=== PATIENT | male | born 1995 | race Caucasian/White ===

== ENCOUNTER 2016-12-09 21:26 | Inpatient (IN) | payer BC ==
[~2016-12-09] VITALS: Ht 182.9 cm; Wt 70.5 kg
[~2016-12-09 21:26] MED LIST: ARIP1TAB8 PO; DIVA500T5 PO; WLLSR/150 PO
[2016-12-09] MEDS ORDERED: WLLSR/300 PO (21:43)
[2016-12-09] MEDS ORDERED: BUPRTAB51 PO (21:43)
[2016-12-09] MEDS ORDERED: DIVA250T PO (21:43)
[2016-12-09] MEDS ORDERED: DIVA500T3 PO (21:43)
[2016-12-09 22:31] LABS: URINE APPEARANCE CLEAR (CLEAR); URINE BILIRUBIN NEG (NEG); URINE COLOR YELLOW; URINE NITRITE NEG (NEG); URINE SPECIFIC GRAVITY 1.021 (1.000-1.030); UROBILINOGEN NEG (NEG)
[2016-12-09 22:37] LABS: MANUAL MICROSCOPIC REQUIRED? NO; REVIEW REQ? NO
--- NOTE | 2016-12-09 22:40 | EMERGENCY ROOM VISIT NOTE ---
History Report prepared by Tariq: Giorgi Caldera Under the Supervision of: Dr. Boby Soto D.O. First contact with patient: 21:52 Chief Complaint: MENTAL HEALTH EVALUATION Stated Complaint: 201 History of Present Illness The patient is a 21 year old male who presents to the Emergency Room for a mental health evaluation. The patient's father was concerned about his behavior and decided to bring him into the ED for further evaluation. Per patient's father, the patient had not reached out to him in 3 weeks, the patient has historically struggled in late November for the past few years, and concerned friends had reached out to the patient's parents.The patient has a history of bipolar disorder and stopped taking his medications awhile ago. The patient is not sure exactly when or why he stopped taking his medications. He also notes he has not been going to class for awhile. Per patient's father, the patient has been on his medications for two years and is stable when he is taking them. He has not had any recent medication changes. The patient has been admitted for similar symptoms 3 times in the past. His last in-patient was about 4 years ago. He denies drug or alcohol use, hearing voices, or suicidal ideation at this time. Source of History: patient, parent Onset: today Position: other (global) Note: Other associated symptoms: not taking medications, not going to class Denies: drug or alcohol use, hearing voices or suicidal ideation. Review of Systems See HPI for pertinent positives & negatives. A total of 10 systems reviewed and were otherwise negative. Past Medical & Surgical Medical Problems: (1) Depression Family History Hypertension Social History Smoking Status: Never Smoker Alcohol Use: none Drug Use: none Marital Status: single Housing Status: lives with family Allergies Coded Allergies: No Known Allergies (Unverified , 12/09/16) Physical Exam Vital Signs Date Time Temp Pulse Resp B/P Pulse Ox O2 Delivery O2 Flow Rate FiO2 12/09/16 23:22 71 18 113/72 98 Room Air 12/09/16 21:29 36.5 64 18 120/79 99 Room Air Physical Exam GENERAL: Patient is awake alert, somewhat guarded appearing, anxious, does not appear to be uncomfortable. EYES: The conjunctivae are clear. The pupils are round and reactive. EARS, NOSE, MOUTH AND THROAT: The nose is without any evidence of any deformity. Mucous membranes are moist tongue is midline NECK: The neck is nontender and supple. RESPIRATORY: Normal respiratory effort is noted there is no evidence of wheezing rhonchi or rales CARDIOVASCULAR: Regular rate and rhythm noted there no murmurs rubs or gallops normal S1 normal S2 GASTROINTESTINAL: The abdomen is soft. Bowel sounds are present in all quadrants. Abdomen is nontender MUSCULOSKELETAL/EXTREMITIES: There is no evidence of gross deformity full range of motion is noted in the hips and shoulders SKIN: There is no obvious evidence of any rash. There are no petechiae, pallor or cyanosis noted. NEUROLOGIC: Patient is awake alert and oriented x3 strength is symmetric patellar reflexes are 2+ bilaterally PSYCH: Patient was guarded and somewhat anxious appearing. He makes poor eye contact, currently denying any suicidal or homicidal ideation, but appears to be responding to internal stimuli, patient laughs inappropriately, patient has some insight into his overall condition. Medical Decision & Procedures Laboratory Results 12/09/16 22:25 Red Blood Count 5.94, Mean Corpuscular Volume 80.8, Mean Corpuscular Hemoglobin 28.6, Mean Corpuscular Hemoglobin Concent 35.4, Mean Platelet Volume 10.6, Neutrophils (%) (Auto) 52.3, Lymphocytes (%) (Auto) 35.5, Monocytes (%) (Auto) 10.0, Eosinophils (%) (Auto) 1.5, Basophils (%) (Auto) 0.5, Neutrophils # (Auto ) 3.08, Lymphocytes # (Auto) 2.09, Monocytes # (Auto) 0.59, Eosinophils # (Auto ) 0.09, Basophils # (Auto) 0.03 12/09/16 22:25 Test 12/09/16 22:15 12/09/16 22:25 12/09/16 22:28 Urine Color YELLOW Urine Appearance CLEAR (CLEAR) Urine pH 7.0 (4.5-7.5) Urine Specific [place] 1.021 (1.000-1.030) Urine Protein NEG (NEG) Urine Glucose (UA) NEG (NEG) Urine Ketones NEG (NEG) Urine Occult Blood NEG (NEG) Urine Nitrite NEG (NEG) Urine Bilirubin NEG (NEG) Urine Urobilinogen NEG (NEG) Urine Leukocyte Esterase NEG (NEG) Urine Opiates Screen NEG (NEG) Urine Methadone, Qualitative NEG (NEG) Urine Barbiturates NEG (NEG) Urine Phencyclidine (PCP) Level NEG (NEG) Ur Amphetamine/Methamphetamine NEG (NEG) MDMA (Ecstasy) Screen NEG (NEG) Urine Benzodiazepines Screen NEG (NEG) Urine Cocaine Metabolite NEG (NEG) Urine Marijuana (THC) NEG (NEG) White Blood Count 5.89 K/uL (4.8-10.8) Red Blood Count 5.94 M/uL (4.7-6.1) Hemoglobin 17.0 g/dL (14.0-18.0) Hematocrit 48.0 % (42-52) Mean Corpuscular Volume 80.8 fL (80-100) Mean Corpuscular Hemoglobin 28.6 pg (25-34) Mean Corpuscular Hemoglobin Concent 35.4 g/dl (32-36) Platelet Count 260 K/uL (130-400) Mean Platelet Volume 10.6 fL (7.4-10.4) Neutrophils (%) (Auto) 52.3 % Lymphocytes (%) (Auto) 35.5 % Monocytes (%) (Auto) 10.0 % Eosinophils (%) (Auto) 1.5 % Basophils (%) (Auto) 0.5 % Neutrophils # (Auto) 3.08 K/uL (1.4-6.5) Lymphocytes # (Auto) 2.09 K/uL (1.2-3.4) Monocytes # (Auto) 0.59 K/uL (0.11-0.59) Eosinophils # (Auto) 0.09 K/uL (0-0.5) Basophils # (Auto) 0.03 K/uL (0-0.2) RDW Standard Deviation 38.9 fL (36.4-46.3) RDW Coefficient of Variation 13.1 % (11.5-14.5) Immature Granulocyte % (Auto) 0.2 % Immature Granulocyte # (Auto) 0.01 K/uL (0.00-0.02) Anion Gap 9.0 mmol/L (3-11) Est Creatinine Clear Calc Drug Dose 149.8 ml/min Estimated GFR () 148.8 Estimated GFR (Non- 128.4 BUN/Creatinine Ratio 8.0 (10-20) Calcium Level 8.8 mg/dl (8.5-10.1) Total Bilirubin 0.3 mg/dl (0.2-1) Direct Bilirubin < 0.1 mg/dl (0-0.2) Aspartate Amino Transf (AST/SGOT) 21 U/L (15-37) Alanine Aminotransferase (ALT/SGPT) 23 U/L (12-78) Alkaline Phosphatase 49 U/L (45-117) Total Protein 6.9 gm/dl (6.4-8.2) Albumin 4.2 gm/dl (3.4-5.0) Globulin 2.7 gm/dl (2.5-4.0) Albumin/Globulin Ratio 1.6 (0.9-2) Thyroid Stimulating Hormone (TSH) 1.240 uIu/ml (0.300-4.500) Valproic Acid (Depakene) Level < 3 mcg/ml (50-100) Ethyl Alcohol mg/dL < 3.0 mg/dl (0-3) Laboratory results per my review. ED Course 2013: The patient was evaluated in room A7. A complete history and physical examination were performed. 2320: At this time, I reevaluated the patient and he is resting comfortably. 0102: At this time, the patient was accepted and placed at a mental health facility - [address] [place] [address]. Medical Decision Prior records/ancillary studies reviewed. Triage Nursing notes reviewed. Additional history obtained from the patient's father. The patient's history was concerning for possible psychiatric disturbance. Differential diagnosis: Etiologies such as mood disorder, infection, hypoglycemia, electrolyte abnormalities, cardiac sources, intracerebral event, toxicologic, neurologic, as well as others were entertained. The patient is a 21-year-old male who presented to the emergency department for a mental health evaluation. His father brought him to the emergency department and was very concerned because he has not heard from enema in a few weeks. The patient's father was contacted by friends who were concerned because the patient had become withdrawn. The patient stopped going to classes. His grades started to suffer. The patient stopped taking his medications. He appears to have some insight into his overall condition but I still feel that his mental health condition warrants an evaluation for possible inpatient management. The patient was medically cleared in the emergency department. He is currently being evaluated by the delegate from [address] [place] [id number]. The patient was felt to be a good candidate for inpatient management. He was accepted the [address] [place] [address]. Impression Primary Impression: Bipolar disorder Additional Impressions: Noncompliance with medications Manic behavior Scribe Attestation The scribe's documentation has been prepared under my direction and personally reviewed by me in its entirety. I confirm that the note above accurately reflects all work, treatment, procedures, and medical decision making performed by me. Departure Information Dispostion [facility] ([address] [place] [address]) Forms HOME CARE DOCUMENTATION FORM, IMPORTANT VISIT INFORMATION Problem Qualifiers Primary Impression: Bipolar disorder Active/Remission status: currently active Current bipolar episode type: manic Current episode severity: moderate Qualified Codes: F31.12 - Bipolar disorder, current episode manic without psychotic features, moderate
[2016-12-09 22:47] LABS: BASO % 0.5 %; BASO ABS # 0.03 K/uL (0-0.2); COMPLETE YES; EOS % 1.5 %; IG% 0.2 %; LYMPH % 35.5 %; LYMPH ABS # 2.09 K/uL (1.2-3.4); MEAN CELL VOLUME 80.8 fL (80-100); MEAN CORPUSCULAR HEMOGLOBIN 28.6 pg (25-34); MEAN CORPUSCULAR HGB CONC 35.4 g/dl (32-36); MEAN PLATELET VOLUME 10.6 fL (7.4-10.4); NEUT % 52.3 %; PLATELET COUNT 260 K/uL (130-400); RED BLOOD COUNT 5.94 M/uL (4.7-6.1); WHITE BLOOD COUNT 5.89 K/uL (4.8-10.8)
[2016-12-09 23:03] LABS: ALT/SGPT 23 U/L (12-78); BLOOD UREA NITROGEN 6 mg/dl (7-18); CALCIUM 8.8 mg/dl (8.5-10.1); CARBON DIOXIDE 26 mmol/L (21-32); CHLORIDE 108 mmol/L (98-107); CREATININE 0.79 mg/dl (0.60-1.40); GLUCOSE 120 mg/dl (70-99); POTASSIUM 4.1 mmol/L (3.5-5.1); SODIUM 143 mmol/L (136-145)
[2016-12-09 23:05] LABS: BENZODIAZEPINE, URINE NEG (NEG); COCAINE,URINE NEG (NEG); PHENCYCLIDINE, URINE NEG (NEG)
[2016-12-09 23:14] LABS: ALB/GLOB RATIO 1.6 (0.9-2); ALKALINE PHOSPHATASE 49 U/L (45-117); AST/SGOT 21 U/L (15-37)
[2016-12-10] MEDS ORDERED: NURSING VERBAL MED ORDER ONE (01:00)
[2016-12-10 01:11] VITALS: O2SAT 98
[2016-12-10 01:25] VITALS: BP_SYST 127; BP_DIAS 76; BP_DIAS 80; PULSE 58; TEMP 36.5; Ht 182.9 cm; Wt 70.5 kg
[2016-12-10] MEDS ORDERED: ALUMINUM/MAGNESIUM SUSP 30 ML UDC PO PRN (01:45)
[2016-12-10] MEDS ORDERED: BISMUTH SUBSALICYLATE PER ML OMNICELL CHARGE PO PRN (01:45)
[2016-12-10] MEDS ORDERED: hydrOXYzine HCL 25 MG TAB PO PRN ×2 (01:45)
[2016-12-10] MEDS ORDERED: SODIUM CHLORIDE 0.65% NA SOLN 45 ML (OCEAN) PRN (01:45)
[2016-12-10] MEDS ORDERED: ACETAMINOPHEN 325 MG TAB PO PRN (01:45)
[2016-12-10] MEDS ORDERED: MAGNESIUM HYDROXIDE SUSP 30 ML UDC PO PRN (01:45)
[2016-12-10] MEDS ORDERED: HALOPERIDOL LACTATE 5 MG/ML 1 ML VIAL IM PRN (11:00)
[2016-12-10] MEDS ORDERED: HALOPERIDOL 5 MG TAB PO PRN (11:00)
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
[2016-12-10] MEDS ORDERED: ARIPIprazole TAB 5 MG TAB PO SCH (13:30)
[2016-12-10] MEDS: DIVALPROEX SODIUM 250 MG DELAY REL TAB PO SCH (22:00)
[2016-12-11 06:46] VITALS: BP_SYST 103; BP_SYST 108; BP_DIAS 64; BP_DIAS 67; PULSE 47; PULSE 62; TEMP 36.9
--- NOTE | 2016-12-11 07:56 | Psychiatric Progress Notes ---
Progress Note Date of Service Dec 11, 2016. Interval History Javid Garcia is a 21-year-old male with a history of depression not otherwise specified, rule out bipolar disorder and rule out autism, who presented to the emergency room last night with his father due to concerns about poorly controlled mood symptoms and inability to function. He had taken himself off of medications one to 2 months ago for unknown reasons. He was admitted voluntarily, but immediately submitted a 72 hour notice requesting to withdraw from treatment. He is refusing all aspects of treatment, including medications and groups, and has refused most meals. Chief Complaint "Tired". Subjective Patient was seen & assessed interval progress reviewed with nursing. Staff report he remained in his room all day yesterday, refused all medications, and refused all meals. He refused all groups and would not come out of his room even with prompting from staff. On shift nurse manager and came out and asked staff for food, saying he was hungry as he hasn't eaten for two days, so he was given some food, and his fasting labs were moved to tomorrow AM. He is pleasant in interactions with staff, but uncooperative with all aspect of treatment. His father called in, but the patient refused to talk to him and refused to sign a release. Today, the patient was seen in his room, where he is still in bed made morning. He refused breakfast this morning. When asked why he is refusing to take medications or participate in treatment, he says "no reason." He says he didn't want to talk to his family, and when asked why he wants sign a release or allow us to speak with them, says "no reason." He says he doesn't need to be here, and does not think he has a mental illness. When asked why he has been seen a psychiatrist in taking psychotropic medications for years, he says "no reason." He says he is here because "it's their problem, not mine." When asked if he is upset at them, he says "they're upset at me because I haven' t been talking to them." When asked about hallucinations, he interrupted before the question was over to answer "no," and continued to do that with several other questions about specific symptoms. He continues to refuse to take medications. When asked why he agreed to voluntary treatment in the emergency room, as per documentation he told staff there that he had decompensated since going off of his medications and felt that he needed treatment, he states that he did not sign in voluntarily and does not recall this discussion with staff. Again reviewed the treatment recommendations with him, as well as concerns about his symptoms and inability to care for himself over the past month, and again encouraged him to rescind his 72 hour notice and participate in treatment. He responded by saying "no thank you." He was informed of recommendations to proceed with a 302 involuntary commitment, given the risk he poses to himself if he continues to refuse to treat his mental illness, and was given information about the process. Sleep Information Total Hours of Sleep: 11.00 Meal Information Percent of Lunch Consumed: 0 Mental Status Exam During interview pt is: uncooperative, other (refused to get out of bed or sit up. Refuses to answer most questions.) Appearance: disheveled (unkempt), other (lying in bed with the covers pulled up.) Eye contact is: other (does not make any eye contact and averts gaze.) Motor behavior is: psychomotor agitation (mild restless, shifting frequently in bed. Prior to entering the room, he was observed lying in bed and staring up at the ceiling, without restlessness.) Speech: other (minimal, but normal rate when he does speak, and briefly was very loud) Affect: other (odd, inappropriate, with brief episodes of laughing inappropriately) Mood is: other ("tired") Thought process: other (difficult to assess due to refusal to answer most questions and short answers. Cannot rule out thought blocking.) Thought content: other (denies paranoia, delusions of reference, thought broadcasting and insertion, but not a reliable historian.) Suicidal thought are: denied Homicidal thoughts are: denied Hallucinations: denies auditory (but appears to be responding to internal stimuli at times, laughing inappropriately) Cognition: other (all spheres impaired, states he does not recall signing in the conversations he had with emergency room staff) Intelligence estimated to be: consistent with level of education Insight: severely impaired Judgement: severely impaired Impression 21-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 He is a poor historian and unwilling to answer questions or participate in the assessment process. We will need to get collateral information from family and his outpatient psychiatrist, Dr. Duenas, as we have not seen him in several years. Based on the limited information available , his symptoms most likely represent a mixed episode of bipolar disorder with psychosis, complicated by noncompliance with treatment. Although admitted voluntarily, he immediately submitted a 72 hour notice requesting to withdraw from treatment, and is refusing all medications, will not participate in assessments or groups, and has been refusing meals. At this point, will proceed with an involuntary 302 commitment, as he does not appear able to provide for his own basic needs at this time due to the severity of his symptoms. May need to consider medications over objection. Plan (1) Bipolar disorder -Resume home dose of Depakote 750 mg daily at bedtime, and check a trough level after 5 days (12/16/2016). -Resume aripiprazole, starting at 2.5 mg today, and increasing to 5 mg every morning tomorrow. Titrate up to effective dose. -Fasting lipid profile and glucose ordered for monitoring on an atypical antipsychotic for tomorrow morning. -Haldol 5 mg by mouth or IM as needed for psychosis. -Request records from Dr. Duenas. So far, the patient is refusing to sign any releases. -Get collateral information from parents. Presently, he is refusing to sign a release or schedule a family meeting. -He is here on a voluntary basis, but has submitted a 72 hour notice requesting to withdraw from treatment. We'll consider the need for a 302 involuntary commitment. -Encourage participation in unit groups and programming once he is able to tolerate it. -Once he is improved, will need to work on healthy coping skills and her discharge safety plan. 12/11 -Refusing all medications and most meals. -Pursue 302 involuntary commitment, and consider medications over objection. -Fasting labs have been postponed until tomorrow. -The patient's father called in, but patient refused to speak with him or to sign a release of information so that staff could speak with family. -Will attempt to contact Dr. Duenas tomorrow. (2) Noncompliance with medications Will coordinate care with Dr. Duenas. Consider the need for long-acting injectable antipsychotic, as the patient has decompensated in been hospitalized at least twice now due to going off of his medications. Visit Code E&M Code: 67567 Inventory Assets Strengths: "I don't know." Patient refused to answer Needs: Compliance with treatment Risk Factors Assessment Male: Yes : Yes /single/: Yes Health problems: No Mental Health Diagnoses: Yes Substance use disorders: No Previous attempt: Yes Family history of suicide: No Previous psychiatric stay: Yes Hopelessness: No Smoker: No Protective Factors Assessment Mandaen beliefs: Yes : No Responsible for young children: No Employed: No Stable relationships: No Supportive family: Yes Data Vital Signs Last 24 Hrs: Date Time Temp Pulse Resp B/P Pulse Ox O2 Delivery O2 Flow Rate FiO2 12/11/16 06:46 36.9 47 16 108/64 62 103/67 Problem Qualifiers (1) Bipolar disorder: Current bipolar episode type: mixed Current episode severity: severe Psychotic features: with psychotic features
[2016-12-11] MEDS: ARIPIprazole TAB 5 MG TAB PO SCH ×2 (09:00→17:58)
[2016-12-11] MEDS: DIVALPROEX SODIUM 250 MG DELAY REL TAB PO SCH (20:51)
[2016-12-12 06:53] VITALS: BP_SYST 113; BP_SYST 124; BP_DIAS 68; BP_DIAS 84; PULSE 47; PULSE 55; TEMP 36.7
[2016-12-12 08:53] LABS: CHOLESTEROL/HDL RATIO 2.2
[2016-12-12] MEDS: ARIPIprazole TAB 5 MG TAB PO SCH (09:00)
--- NOTE | 2016-12-12 12:49 | Psychiatric Progress Notes ---
Progress Note Date of Service Dec 12, 2016. Interval History Javid Garcia is a 21-year-old male with a history of depression not otherwise specified, rule out bipolar disorder and rule out autism, who presented to the emergency room last night with his father due to concerns about poorly controlled mood symptoms and inability to function. He had taken himself off of medications one to 2 months ago for unknown reasons. He was admitted voluntarily, but immediately submitted a 72 hour notice requesting to withdraw from treatment. He is refusing all aspects of treatment, including medications and groups, and has refused most meals. Chief Complaint Patient nonverbal, refusing to answer most questions. Subjective Patient was seen & assessed interval progress reviewed with Treatment Team. Staff report he refused his Abilify yesterday morning, but then came out to the nurses station in the evening and stated he would take it. He also took his Depakote as scheduled at bedtime. Other than that, he remained in his room in bed all day, with no interactions with staff or peers, politely refusing groups and breakfast and lunch. When staff was checking on him and asked if he needed anything, he told them he did, and handed in a plastic deodorant cap that he had under his blanket which appeared to be chewed on. His mother came to the hospital and requested to visit with him, but when staff asked him if she could come up, he initially did not respond at all, and eventually declined. He ate 100% of his dinner, but has refused all other meals since admission. Today, he was seen in his room, where he is still in bed with the covers pulled up. He refused to open his eyes, sit up, or respond to most questions. After several minutes of attempting to engage him, he said "medicine." He would not clarify this statement. He said "no," when asked if he would be willing to get up and participate in treatment today, and when asked why not, said "no reason." When asked if he felt he was depressed, he said "no." He admits that he has not showered in a long time, cannot recall when he last showered, and was encouraged to shower today. Spoke with his outpatient psychiatrist, Dr. Duenas. He has been seen the patient since 2013, and states the patient is diagnosed with bipolar disorder type I, but he has never known him to have psychotic symptoms in the past. He typically becomes depressed in the late fall, and last winter stopped medications for 3-4 weeks and decompensated, although not to this degree. He said he stopped the meds because he felt guilty about the cost. His mother had called last month with concerns that the patient was becoming manic. In the past, his Wellbutrin has been increased and winter months, but there are concerns about destabilizing mood. He has had periods of poor medication compliance in the past. He is close with his family, so his current behavior is unusual. Sleep Information Total Hours of Sleep: 3.00 Meal Information Percent of Breakfast Consumed: 0 Percent of Lunch Consumed: 0 Percent of Dinner Consumed: 100 Mental Status Exam During interview pt is: uncooperative, other (refused to get out of bed or sit up. Refuses to answer most questions.) Appearance: disheveled (unkempt), other (lying in bed with the covers pulled up.) Eye contact is: other (refuses to open eyes or make any eye contact) Motor behavior is: psychomotor agitation (mild restless, shifting frequently in bed. Prior to entering the room, he was observed lying in bed and staring up at the ceiling, without restlessness.) Speech: other (minimal, but normal rate when he does speak, and briefly was very loud) Affect: irritable, constricted Mood is: other (patient refuses to answer) Thought process: other (difficult to assess due to refusal to answer most questions and short answers. 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 He is a poor historian and unwilling to answer questions or participate in the assessment process. We will need to get collateral information from family and his outpatient psychiatrist, Dr. Duenas, as we have not seen him in several years. Based on the limited information available , his symptoms most likely represent a mixed episode of bipolar disorder with psychosis, complicated by noncompliance with treatment. Although admitted voluntarily, he immediately submitted a 72 hour notice requesting to withdraw from treatment, and receipted to refuse medications, groups, and would not answer questions or participate in assessments. He has not been showering or doing his ADLs, is spending all day in bed, and has been refusing meals. He was placed on an involuntary 302 commitment on 12/11/2016, as he does not appear able to provide for his own basic needs at this time due to the severity of his symptoms. May need to consider medications over objection. Plan (1) Bipolar disorder -Resume home dose of Depakote 750 mg daily at bedtime, and check a trough level after 5 days (12/16/2016). -Resume aripiprazole, starting at lower dose of 2.5 mg today, and increasing to 5 mg every morning tomorrow. Titrate up to effective dose. -Hold bupropion due to risk of destabilizing mood, as has not been taking his mood stabilizer. -Fasting lipid profile and glucose ordered for monitoring on an atypical antipsychotic for tomorrow morning. -Haldol 5 mg by mouth or IM as needed for psychosis. -Request records from Dr. Duenas. So far, the patient is refusing to sign any releases. -Get collateral information from parents. Presently, he is refusing to sign a release or schedule a family meeting. -He is here on a voluntary basis, but has submitted a 72 hour notice requesting to withdraw from treatment. We'll consider the need for a 302 involuntary commitment. -Encourage participation in unit groups and programming once he is able to tolerate it. -Once he is improved, will need to work on healthy coping skills and her discharge safety plan. 12/11 -Refusing all medications and most meals. -Pursue 302 involuntary commitment, and consider medications over objection. -Fasting labs have been postponed until tomorrow. -The patient's father called in, but patient refused to speak with him or to sign a release of information so that staff could speak with family. -Will attempt to contact Dr. Duenas tomorrow. 12/12 -Spoke with Dr. Duenas to coordinate care. He confirms bipolar type I diagnosis, and agrees that psychosis appears to be complicating the clinical picture. He also confirms that at baseline, patient is very close with his family, and current presentation is not normal for him. Reviewed medication plan, and he was in agreement. -Continue aripiprazole and Depakote. Will increase aripiprazole to 7.5 mg daily for tomorrow. -Fasting labs were performed this morning for monitoring on an atypical antipsychotic, and were normal. (2) Noncompliance with medications Will coordinate care with Dr. Duenas. Consider the need for long-acting injectable antipsychotic, as the patient has decompensated in been hospitalized at least twice now due to going off of his medications. Visit Code E&M Code: 75643 Inventory Assets Strengths: "I don't know." Patient refused to answer Needs: Compliance with treatment Risk Factors Assessment Male: Yes : Yes /single/: Yes Health problems: No Mental Health Diagnoses: Yes Substance use disorders: No Previous attempt: Yes Family history of suicide: No Previous psychiatric stay: Yes Hopelessness: No Smoker: No Protective Factors Assessment Denominational beliefs: Yes : No Responsible for young children: No Employed: No Stable relationships: No Supportive family: Yes Data Vital Signs Last 24 Hrs: Date Time Temp Pulse Resp B/P Pulse Ox O2 Delivery O2 Flow Rate FiO2 12/12/16 06:53 36.7 47 16 113/68 55 124/84 Meds Administered Last 24 Hrs: Meds Administered (Past 24Hrs) Medications (Trade) Dose Ordered Sig/Olena Route Start Time Stop Time Status Last Admin Dose Admin Divalproex Sodium (Depakote Delay Rel Tab) 750 mg HS PO 12/10/16 22:00 01/09/17 21:59 12/11/16 20:51 750 MG Aripiprazole (Abilify Tab) 5 mg QAM PO 12/11/16 09:00 01/10/17 08:59 12/12/16 09:00 5 MG Lab Results Last 24 Hrs: Last 24 Hours Test 12/12/16 08:07 Fasting Glucose 87 mg/dl Triglycerides Level 92 mg/dl Cholesterol Level 126 mg/dl HDL Cholesterol 57 mg/dl LDL Cholesterol, Calculated 51 mg/dl VLDL Cholesterol, Calculated 18 mg/dl Cholesterol/HDL Ratio 2.2 Problem Qualifiers (1) Bipolar disorder: Current bipolar episode type: mixed Current episode severity: severe Psychotic features: with psychotic features
[2016-12-12] MEDS ORDERED: BUPR300T43 PO (16:01)
[2016-12-12] MEDS ORDERED: BUPRTAB51 PO (16:01)
[2016-12-12] MEDS ORDERED: BUPR150T5 PO (16:01)
[2016-12-12] MEDS: DIVALPROEX SODIUM 250 MG DELAY REL TAB PO SCH (21:33)
[2016-12-13 07:08] VITALS: BP_SYST 100; BP_SYST 106; BP_DIAS 62; BP_DIAS 70; PULSE 49; PULSE 76; TEMP 36.5
[2016-12-13] MEDS: ARIPIprazole TAB 15 MG TAB PO SCH (09:21)
--- NOTE | 2016-12-13 12:04 | Psychiatric Progress Notes ---
Progress Note Date of Service Dec 13, 2016. Interval History Javid Garcia is a 21-year-old male with a history of depression not otherwise specified, rule out bipolar disorder and rule out autism, who presented to the emergency room last night with his father due to concerns about poorly controlled mood symptoms and inability to function. He had taken himself off of medications one to 2 months ago for unknown reasons. He was admitted voluntarily, but immediately submitted a 72 hour notice requesting to withdraw from treatment. He is refusing all aspects of treatment, including medications and groups, and has refused most meals. Chief Complaint Patient nonverbal and refusing to answer questions. Subjective Patient was seen & assessed interval progress reviewed with nursing. Staff report off report he took his medication yesterday, but refused breakfast and lunch, and had to be encouraged to drink fluids. He was offered multiple meal and snack options, which he declined. He ultimately did eat some lunch with staff encouragement. He also showered, stating that he could not even recall the last time he had taken a shower. He spent most of the day in his room in bed, with no spontaneous interactions with others. He did come out of his room briefly in the afternoon, attended community meeting, and ate dinner in the dayroom with peers. In community meeting, he rated his mood a 6 out of 10 and said he was feeling "regretful" that he had not been talking with his parents. Last night, he asked to speak privately with the nurse, and told her that he had been "lying this whole time. I haven't had a bowel movement since I've been here. I just wanted to make sure you know." His speech was pressured, and he frequently responded to questions before the nurse had finished speaking. He denied any other symptoms, and declined offers for medication for constipation. This morning, he is again in his room in bed, and has refused to participate in assessments that were attempted both by the nurse practitioner and myself. Multiple efforts were made to engage him in an interview, but he refused to open his eyes, sit up in bed, or respond verbally. He was observed just prior to entering his room moving around with eyes open, but acts as if he is asleep when this physician enters. He has not been out of bed yet today, refused breakfast, and has not attended any groups. Sleep Information Total Hours of Sleep: 1.50 Meal Information Percent of Breakfast Consumed: 0 Percent of Lunch Consumed: 100 Percent of Dinner Consumed: 100 Mental Status Exam During interview pt is: uncooperative, other (refused to get out of bed or sit up. Refuses to answer any questions.) Appearance: disheveled (unkempt) Eye contact is: other (refuses to open eyes or make any eye contact) Motor behavior is: no abnormal motor movements Speech: other (minimal, but normal rate when he does speak, and briefly was very loud) Affect: constricted (ask as if he is asleep, refusing to engage at all in the assessment, although observed with eyes open and moving around in bed prior to entering the room.) Mood is: other (patient refuses to answer) Thought process: other (patient refuses to answer any questions, so cannot be assessed.) Thought content: other (refuses to answer questions, including questions about suicidality, homicidality, paranoia, and hallucinations) Cognition: other (all spheres appear impaired) Intelligence estimated to be: consistent with level of education Insight: severely impaired Judgement: severely impaired Summary of Past History Records from Dr. Duenas were reviewed. At his 09/08/2016 appointment, the patient reported that he felt good during the break, but more "tense" and returning to class. 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 His mother was present for part of the appointment. He was continued on Wellbutrin XL 450 mg daily, Depakote ER 1250 mg, and Abilify 10 mg every morning. The most recent progress note is from 10/19/2016, at which time the patient reported improved mood since winter break, a good trip to the [place], and intense workload for the spring. He was less concerned about his major. His mother was present for part of the assessment, and no medication changes were made. The patient's mother called him on 11/03/2016, indicating that the patient was acting more manic, called her 5 times a day, was expressing a lot of ideas. His Wellbutrin XL was decreased to 300 mg daily. Medication Trials (1) past psych meds Dr. 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 He has been uncooperative with treatment and unwilling to answer questions. We will need to get collateral information from family and his outpatient psychiatrist, Dr. Duenas, as we have not seen him in several years. Based on the limited information available, his symptoms most likely represent a mixed episode of bipolar disorder with psychosis, complicated by noncompliance with treatment. Although admitted voluntarily, he immediately submitted a 72 hour notice requesting to withdraw from treatment, and receipted to refuse medications, groups, and would not answer questions or participate in assessments. He has not been showering or doing his ADLs, is spending all day in bed, and has been refusing meals. He was placed on an involuntary 302 commitment on 12/11/2016, as he does not appear able to provide for his own basic needs at this time due to the severity of his symptoms. He has started taking medications, and has been resumed on Depakote and Abilify. Patient was more engaged yesterday afternoon and evening, coming out of his room, attending group, and eating dinner with peers, but today is back in his bed, refusing to speak or participate in the assessment. Plan (1) Bipolar disorder -Resume home dose of Depakote 750 mg daily at bedtime, and check a trough level after 5 days (12/16/2016). -Resume aripiprazole, starting at lower dose of 2.5 mg today, and increasing to 5 mg every morning tomorrow. Titrate up to effective dose. -Hold bupropion due to risk of destabilizing mood, as has not been taking his mood stabilizer. -Fasting lipid profile and glucose ordered for monitoring on an atypical antipsychotic for tomorrow morning. -Haldol 5 mg by mouth or IM as needed for psychosis. -Request records from Dr. Duenas. So far, the patient is refusing to sign any releases. -Get collateral information from parents. Presently, he is refusing to sign a release or schedule a family meeting. -He is here on a voluntary basis, but has submitted a 72 hour notice requesting to withdraw from treatment. We'll consider the need for a 302 involuntary commitment. -Encourage participation in unit groups and programming once he is able to tolerate it. -Once he is improved, will need to work on healthy coping skills and her discharge safety plan. 12/11 -Refusing all medications and most meals. -Pursue 302 involuntary commitment, and consider medications over objection. -Fasting labs have been postponed until tomorrow. -The patient's father called in, but patient refused to speak with him or to sign a release of information so that staff could speak with family. -Will attempt to contact Dr. Duenas tomorrow. 12/12 -Spoke with Dr. Duenas to coordinate care. He confirms bipolar type I diagnosis, and agrees that psychosis appears to be complicating the clinical picture. He also confirms that at baseline, patient is very close with his family, and current presentation is not normal for him. Reviewed medication plan, and he was in agreement. -Continue aripiprazole and Depakote. Will increase aripiprazole to 7.5 mg daily for tomorrow. -Fasting labs were performed this morning for monitoring on an atypical antipsychotic, and were normal. 12/13 -Continue aripiprazole 7.5 mg daily and Depakote. It appears that the dose of Depakote was incorrectly reported on admission as 750 mg daily at bedtime, as his outpatient records indicate he was on 1250 mg daily. Will increase the dose for tonight, and can check a level in 5 days (12/18/2016). -Continue to hold Wellbutrin, due to risk of destabilizing mood if it is resumed without adequate mood stabilizing education. -Continue to encourage the patient to participate in treatment. (2) Noncompliance with medications Will coordinate care with Dr. Duenas. Consider the need for long-acting injectable antipsychotic, as the patient has decompensated in been hospitalized at least twice now due to going off of his medications. Discharge / Aftercare Planning Psychiatrist: Name: Dr. Duenas Visit Code E&M Code: 95984 Inventory Assets Strengths: "I don't know." Patient refused to answer Needs: Compliance with treatment Risk Factors Assessment Male: Yes : Yes /single/: Yes Health problems: No Mental Health Diagnoses: Yes Substance use disorders: No Previous attempt: Yes Family history of suicide: No Previous psychiatric stay: Yes Hopelessness: No Smoker: No Protective Factors Assessment Buddhist beliefs: Yes : No Responsible for young children: No Employed: No Stable relationships: No Supportive family: Yes Data Vital Signs Last 24 Hrs: Date Time Temp Pulse Resp B/P Pulse Ox O2 Delivery O2 Flow Rate FiO2 12/13/16 07:08 36.5 49 16 100/62 76 106/70 Meds Administered Last 24 Hrs: Meds Administered (Past 24Hrs) Medications (Trade) Dose Ordered Sig/Olena Route Start Time Stop Time Status Last Admin Dose Admin Aripiprazole (Abilify Tab) 7.5 mg QAM PO 12/13/16 09:00 01/12/17 08:59 12/13/16 09:21 7.5 MG Problem Qualifiers (1) Bipolar disorder: Current bipolar episode type: mixed Current episode severity: severe Psychotic features: with psychotic features
[2016-12-13] MEDS: DIVALPROEX SODIUM 250 MG DELAY REL TAB PO SCH (21:41)
[2016-12-14 06:46] VITALS: BP_SYST 105; BP_SYST 113; BP_DIAS 70; BP_DIAS 76; PULSE 50; PULSE 59; TEMP 36.5
[2016-12-14] MEDS: ARIPIprazole TAB 15 MG TAB PO SCH (09:17)
--- NOTE | 2016-12-14 12:57 | Psychiatric Progress Notes ---
Progress Note Date of Service Dec 14, 2016. Interval History Javid Garcia is a 21-year-old male with a history of depression not otherwise specified, rule out bipolar disorder and rule out autism, who presented to the emergency room last night with his father due to concerns about poorly controlled mood symptoms and inability to function. He had taken himself off of medications one to 2 months ago for unknown reasons. He was admitted voluntarily, but immediately submitted a 72 hour notice requesting to withdraw from treatment. He initially refused all aspects of treatment, including medications and groups, and refused most meals. He later started taking medications, and has attended minimal groups. He's refused visits from his family. Chief Complaint "Fine". Subjective Patient was seen & assessed interval progress reviewed with Treatment Team. Staff report he is taking medications, and signed a release for his parents in for Dr. Duenas. Yesterday he remained in bed throughout the day, and refused to talk or respond to to multiple different staff who attempted to engage him in treatment. He refused breakfast and lunch, but did eat dinner. He attended group in the evening, and said he didn't feel he was making progress, nothing makes him happy, and he is apathetic about almost everything. When staff attempted to process this with him in the context of depression, he said he didn 't think he was depressed. He said he didn't know if he would return to school or not. He said he spoke with his mother. Staff noted that he did not speak very much in group, and isolated himself. This morning, he is out of bed and in the day room, and is responding to questioning. He states that he is willing to go to groups today, and ate his breakfast. He cannot explain events that led to his hospitalization, saying "nothing, don't know." He says he does not remember how he came to be in the hospital, and describes feeling "really detached, out of place from everywhere, uninterested." He says that he is feeling better today because "something happened last night, I don't know." He admits that it is possible that his symptoms were caused by going off his medications, but states that he cannot remember exactly when he stopped taking his medications or why he stopped them. He denies side effects from medications currently. At times he seems confused by basic questions, for example when asked about his appetite, said "what do you mean?" He claims he has eaten "every single meal", although he has actually refused most meals since admission. He is willing to have a meeting with his family. He denies that he is hearing voices, and denies thought blocking, delusions of reference, and paranoia. When asked about his uncontrollable laughter that was present his first couple of days in the hospital, he states he remembers this, and when asked to explain it says, "nothing, nothing funny." Sleep Information Total Hours of Sleep: 5.25 Meal Information Percent of Breakfast Consumed: 100 Percent of Lunch Consumed: 100 Percent of Dinner Consumed: 100 Mental Status Exam During interview pt is: guarded, other (limited historian, giving vague and evasive answers.) Appearance: disheveled (unkempt) Eye contact is: poor, other Motor behavior is: no abnormal motor movements Speech: normal in rate, rhythm & volume (minimal) Affect: irritable (incongruent with stated mood) Mood is: other ("fine") Thought process: goal directed, blocking (thought blocking versus unwillingness to answer questions) Suicidal thought are: denied Homicidal thoughts are: denied Hallucinations: denies auditory Cognition: language grossly intact, other (memory and attention are impaired) Intelligence estimated to be: consistent with level of education Insight: severely impaired Judgement: severely impaired Summary of Past History Records from Dr. Duenas were reviewed. At his 09/08/2016 appointment, the patient reported that he felt good during the break, but more "tense" and returning to class. 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 His mother was present for part of the appointment. He was continued on Wellbutrin XL 450 mg daily, Depakote ER 1250 mg, and Abilify 10 mg every morning. The most recent progress note is from 10/19/2016, at which time the patient reported improved mood since winter break, a good trip to the [place], and intense workload for the spring. He was less concerned about his major. His mother was present for part of the assessment, and no medication changes were made. The patient's mother called him on 11/03/2016, indicating that the patient was acting more manic, called her 5 times a day, was expressing a lot of ideas. His Wellbutrin XL was decreased to 300 mg daily. Medication Trials (1) past psych meds Dr. 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 He has been uncooperative with treatment and unwilling to answer questions. We will need to get collateral information from family and his outpatient psychiatrist, Dr. Duenas, as we have not seen him in several years. Based on the limited information available, his symptoms most likely represent a mixed episode of bipolar disorder with psychosis, complicated by noncompliance with treatment. Although admitted voluntarily, he immediately submitted a 72 hour notice requesting to withdraw from treatment, and receipted to refuse medications, groups, and would not answer questions or participate in assessments. He has not been showering or doing his ADLs, is spending all day in bed, and has been refusing meals. He was placed on an involuntary 302 commitment on 12/11/2016, as he does not appear able to provide for his own basic needs at this time due to the severity of his symptoms. He has started taking medications, and has been resumed on Depakote and Abilify. Patient was more engaged yesterday afternoon and evening, coming out of his room, attending group, and eating dinner with peers, but today is back in his bed, refusing to speak or participate in the assessment. Plan (1) Bipolar disorder -Resume home dose of Depakote 750 mg daily at bedtime, and check a trough level after 5 days (12/16/2016). -Resume aripiprazole, starting at lower dose of 2.5 mg today, and increasing to 5 mg every morning tomorrow. Titrate up to effective dose. -Hold bupropion due to risk of destabilizing mood, as has not been taking his mood stabilizer. -Fasting lipid profile and glucose ordered for monitoring on an atypical antipsychotic for tomorrow morning. -Haldol 5 mg by mouth or IM as needed for psychosis. -Request records from Dr. Duenas. So far, the patient is refusing to sign any releases. -Get collateral information from parents. Presently, he is refusing to sign a release or schedule a family meeting. -He is here on a voluntary basis, but has submitted a 72 hour notice requesting to withdraw from treatment. We'll consider the need for a 302 involuntary commitment. -Encourage participation in unit groups and programming once he is able to tolerate it. -Once he is improved, will need to work on healthy coping skills and her discharge safety plan. 12/11 -Refusing all medications and most meals. -Pursue 302 involuntary commitment, and consider medications over objection. -Fasting labs have been postponed until tomorrow. -The patient's father called in, but patient refused to speak with him or to sign a release of information so that staff could speak with family. -Will attempt to contact Dr. Duenas tomorrow. 12/12 -Spoke with Dr. Duenas to coordinate care. He confirms bipolar type I diagnosis, and agrees that psychosis appears to be complicating the clinical picture. He also confirms that at baseline, patient is very close with his family, and current presentation is not normal for him. Reviewed medication plan, and he was in agreement. -Continue aripiprazole and Depakote. Will increase aripiprazole to 7.5 mg daily for tomorrow. -Fasting labs were performed this morning for monitoring on an atypical antipsychotic, and were normal. 12/13 -Continue aripiprazole 7.5 mg daily and Depakote. It appears that the dose of Depakote was incorrectly reported on admission as 750 mg daily at bedtime, as his outpatient records indicate he was on 1250 mg daily. Will increase the dose for tonight, and can check a level in 5 days (12/18/2016). -Continue to hold Wellbutrin, due to risk of destabilizing mood if it is resumed without adequate mood stabilizing medication. -Continue to encourage the patient to participate in treatment. 12/14 -Schedule family meeting with parents. -Consider need for 303 commitment. Today is the first day he has eaten more than one meal, been out of bed, or participated in groups and programming. (2) Noncompliance with medications Will coordinate care with Dr. Duenas. Consider the need for long-acting injectable antipsychotic, as the patient has decompensated in been hospitalized at least twice now due to going off of his medications. Discharge / Aftercare Planning Psychiatrist: Name: Dr. Duenas Visit Code E&M Code: 91862 Inventory Assets Strengths: "I don't know." Patient refused to answer Needs: Compliance with treatment Risk Factors Assessment Male: Yes : Yes /single/: Yes Health problems: No Mental Health Diagnoses: Yes Substance use disorders: No Previous attempt: Yes Family history of suicide: No Previous psychiatric stay: Yes Hopelessness: No Smoker: No Protective Factors Assessment Christian beliefs: Yes : No Responsible for young children: No Employed: No Stable relationships: No Supportive family: Yes Data Vital Signs Last 24 Hrs: Date Time Temp Pulse Resp B/P Pulse Ox O2 Delivery O2 Flow Rate FiO2 12/14/16 06:46 36.5 50 18 105/70 59 113/76 Meds Administered Last 24 Hrs: Meds Administered (Past 24Hrs) Medications (Trade) Dose Ordered Sig/Olena Route Start Time Stop Time Status Last Admin Dose Admin Aripiprazole (Abilify Tab) 7.5 mg QAM PO 12/13/16 09:00 01/12/17 08:59 12/14/16 09:17 7.5 MG Divalproex Sodium (Depakote Delay Rel Tab) 1,250 mg HS PO 12/13/16 22:00 01/12/17 21:59 12/13/16 21:41 1,250 MG Problem Qualifiers (1) Bipolar disorder: Current bipolar episode type: mixed Current episode severity: severe Psychotic features: with psychotic features
[2016-12-14] MEDS: DIVALPROEX SODIUM 250 MG DELAY REL TAB PO SCH (22:15)
[2016-12-15 06:52] VITALS: BP_SYST 102; BP_SYST 108; BP_DIAS 63; BP_DIAS 65; PULSE 47; PULSE 83; TEMP 36.3
[2016-12-15] MEDS: ARIPIprazole TAB 15 MG TAB PO SCH (08:23)
--- NOTE | 2016-12-15 08:57 | Psychiatric Progress Notes ---
Progress Note Date of Service Dec 15, 2016. Interval History Javid Garcia is a 21-year-old male with a history of depression not otherwise specified, rule out bipolar disorder and rule out autism, who presented to the emergency room last night with his father due to concerns about poorly controlled mood symptoms and inability to function. He had taken himself off of medications one to 2 months ago for unknown reasons. He was admitted voluntarily, but immediately submitted a 72 hour notice requesting to withdraw from treatment. He initially refused all aspects of treatment, including medications and groups, and refused most meals. He later started taking medications, and has attended minimal groups. He's refused visits from his family. Chief Complaint "Not good". Subjective Patient was seen & assessed interval progress reviewed with nursing. Staff report he was out of his room more yesterday, and for the first time since admission, ate all 3 meals. He attended groups, but did not participate, and struggled with attention, often unable to answer questions initially, then trying to answer them sometime later. He appeared thought blocked. He could sometimes responded monosyllabically to open-ended questions, but speech had a staccato quality, and he had no spontaneous interactions with others. A family meeting was held with his mother and the social professionals. It was the first time he had allowed family to visit, and the patient appeared tangential and disorganized throughout the meeting. His mother stated that she was in favor of ongoing hospitalization on a 303 commitment, and the patient became angry. Attempts were made to review concerns about his inability to care for himself and his ongoing symptoms, and he showed poor understanding, became more disorganized, and was talking about being part of the solar system. He demonstrated bizarre thought patterns, for example stating he would agree to sign a release so that a referral for outpatient therapy could be made, but that he would need to balance that by revoking the release for his parents. He was unable to make a decision about returning to school or not, and had no other plan for where he would go at discharge. He made comments that everyone will stop caring about him and that he will " alone." He appeared agitated and was pacing after the family meeting, revoked the RAJI for his parents, repeatedly stating that his family would stop caring about him and he would alone. This morning, the patient was seen in the activity room, where he was coloring. He was irritable and uncooperative with attempts to interview him. He said his mood is "pretty bad," but when asked to give more information, he became increasingly agitated, saying "continue ask someone else, the person who ruined my day, don't know her name." He then answered "don't know" to further questioning, and at times refused to answer at all. Attempted to talk to him about his family meeting and the suicidal statements he made afterwards, but he refused to answer questions. Attempted to inform him of the plan to pursue a 303 commitment due to his ongoing disorganization, thought blocking, irritability, poorly controlled mood, and suicidal thoughts, and he interrupted angrily, stating "I just needs a sex!" He then stormed out of the room and went to his room, where he slammed the door. Sleep Information Total Hours of Sleep: 6.00 Meal Information Percent of Breakfast Consumed: 100 Percent of Lunch Consumed: 100 Percent of Dinner Consumed: 100 Mental Status Exam During interview pt is: guarded, other (uncooperative and agitated) Appearance: disheveled (unkempt, thin, pale) Eye contact is: poor (stares angrily for brief periods, then turns away) Motor behavior is: psychomotor agitation Speech: other (speech minimal, angry tone) Affect: irritable, angry, constricted, other (incongruent with stated mood) Mood is: other ("fine") Thought process: blocking (thought blocking versus unwillingness to answer questions) Suicidal thought are: present Homicidal thoughts are: denied Hallucinations: denies auditory Cognition: language grossly intact, other (memory and attention are impaired) Intelligence estimated to be: consistent with level of education Insight: severely impaired Judgement: severely impaired Summary of Past History Records from Dr. Duenas were reviewed. At his 09/08/2016 appointment, the patient reported that he felt good during the break, but more "tense" and returning to class. 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 His mother was present for part of the appointment. He was continued on Wellbutrin XL 450 mg daily, Depakote ER 1250 mg, and Abilify 10 mg every morning. The most recent progress note is from 10/19/2016, at which time the patient reported improved mood since winter break, a good trip to the [facility], and intense workload for the spring. He was less concerned about his major. His mother was present for part of the assessment, and no medication changes were made. The patient's mother called him on 11/03/2016, indicating that the patient was acting more manic, called her 5 times a day, was expressing a lot of ideas. His Wellbutrin XL was decreased to 300 mg daily. Medication Trials (1) past psych meds Dr. 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 He has been uncooperative with treatment and unwilling to answer questions. We will need to get collateral information from family and his outpatient psychiatrist, Dr. Duenas, as we have not seen him in several years. Based on the limited information available, his symptoms most likely represent a mixed episode of bipolar disorder with psychosis, complicated by noncompliance with treatment. Although admitted voluntarily, he immediately submitted a 72 hour notice requesting to withdraw from treatment, and receipted to refuse medications, groups, and would not answer questions or participate in assessments. He has not been showering or doing his ADLs, is spending all day in bed, and has been refusing meals. He was placed on an involuntary 302 commitment on 12/11/2016, as he does not appear able to provide for his own basic needs at this time due to the severity of his symptoms. He has started taking medications, and has been resumed on Depakote and Abilify. Patient was more engaged yesterday afternoon and evening, coming out of his room, attending group, and eating dinner with peers, but today is back in his bed, refusing to speak or participate in the assessment. Plan (1) Bipolar disorder -Resume home dose of Depakote 750 mg daily at bedtime, and check a trough level after 5 days (12/16/2016). -Resume aripiprazole, starting at lower dose of 2.5 mg today, and increasing to 5 mg every morning tomorrow. Titrate up to effective dose. -Hold bupropion due to risk of destabilizing mood, as has not been taking his mood stabilizer. -Fasting lipid profile and glucose ordered for monitoring on an atypical antipsychotic for tomorrow morning. -Haldol 5 mg by mouth or IM as needed for psychosis. -Request records from Dr. Duenas. So far, the patient is refusing to sign any releases. -Get collateral information from parents. Presently, he is refusing to sign a release or schedule a family meeting. -He is here on a voluntary basis, but has submitted a 72 hour notice requesting to withdraw from treatment. We'll consider the need for a 302 involuntary commitment. -Encourage participation in unit groups and programming once he is able to tolerate it. -Once he is improved, will need to work on healthy coping skills and her discharge safety plan. 12/11 -Refusing all medications and most meals. -Pursue 302 involuntary commitment, and consider medications over objection. -Fasting labs have been postponed until tomorrow. -The patient's father called in, but patient refused to speak with him or to sign a release of information so that staff could speak with family. -Will attempt to contact Dr. Duenas tomorrow. 12/12 -Spoke with Dr. Duenas to coordinate care. He confirms bipolar type I diagnosis, and agrees that psychosis appears to be complicating the clinical picture. He also confirms that at baseline, patient is very close with his family, and current presentation is not normal for him. Reviewed medication plan, and he was in agreement. -Continue aripiprazole and Depakote. Will increase aripiprazole to 7.5 mg daily for tomorrow. -Fasting labs were performed this morning for monitoring on an atypical antipsychotic, and were normal. 12/13 -Continue aripiprazole 7.5 mg daily and Depakote. It appears that the dose of Depakote was incorrectly reported on admission as 750 mg daily at bedtime, as his outpatient records indicate he was on 1250 mg daily. Will increase the dose for tonight, and can check a level in 5 days (12/18/2016). -Continue to hold Wellbutrin, due to risk of destabilizing mood if it is resumed without adequate mood stabilizing medication. -Continue to encourage the patient to participate in treatment. 12/14 -Schedule family meeting with parents. -Consider need for 303 commitment. Today is the first day he has eaten more than one meal, been out of bed, or participated in groups and programming. 12/15 -File for 303 with hearing tomorrow. -Consider increasing Abilify to 10g daily. (2) Noncompliance with medications Will coordinate care with Dr. Duenas. Consider the need for long-acting injectable antipsychotic, as the patient has decompensated in been hospitalized at least twice now due to going off of his medications. Discharge / Aftercare Planning Psychiatrist: Name: Dr. Duenas Visit Code E&M Code: 93974 Inventory Assets Strengths: "I don't know." Patient refused to answer Needs: Compliance with treatment Risk Factors Assessment Male: Yes : Yes /single/: Yes Health problems: No Mental Health Diagnoses: Yes Substance use disorders: No Previous attempt: Yes Family history of suicide: No Previous psychiatric stay: Yes Hopelessness: No Smoker: No Protective Factors Assessment Moravian beliefs: Yes : No Responsible for young children: No Employed: No Stable relationships: No Supportive family: Yes Data Vital Signs Last 24 Hrs: Date Time Temp Pulse Resp B/P Pulse Ox O2 Delivery O2 Flow Rate FiO2 12/15/16 06:52 36.3 47 16 102/63 83 108/65 Meds Administered Last 24 Hrs: Meds Administered (Past 24Hrs) Medications (Trade) Dose Ordered Sig/Olena Route Start Time Stop Time Status Last Admin Dose Admin Aripiprazole (Abilify Tab) 7.5 mg QAM PO 12/13/16 09:00 01/12/17 08:59 12/15/16 08:23 7.5 MG Divalproex Sodium (Depakote Delay Rel Tab) 1,250 mg HS PO 12/13/16 22:00 01/12/17 21:59 12/14/16 22:15 1,250 MG Problem Qualifiers (1) Bipolar disorder: Current bipolar episode type: mixed Current episode severity: severe Psychotic features: with psychotic features
--- NOTE | 2016-12-15 16:18 | Psychiatric Progress Notes ---
Psychiatric Progress Note Date of Service Dec 15, 2016. Notes Patient seen and chart reviewed in preparation for 303 hearing tomorrow am. Patient admited on 12/10 with a history of med noncompliance and prior diagnosis of bipolar I disorder. initially on 201, refused to eat or take meds and signed 72 hour notice so a 302 was pursued. Now compliant with Depakote and Abilify (level due 12/18). Hx of med noncompliance and there is consideration for discharge on injectable medication. He has exhibited thought blocking and inappropriate response to internal stimuli. He tells me he was laughing on purpose to upset those around him, lacks insight into condition and believes nothing will help him. He hasn't been aggressive but is irritable and will pace , resistant to family involvement. Made statements last pm about dying alone. Denies currently being suicidal. He is unsure at this time if he will attend the hearing tomorrow. He appears flat/dysphoric.
[2016-12-15] MEDS: DIVALPROEX SODIUM 250 MG DELAY REL TAB PO SCH (21:16)
[2016-12-16 06:35] VITALS: BP_SYST 139; BP_SYST 97; BP_DIAS 61; BP_DIAS 96; PULSE 43; PULSE 64; TEMP 36.3
[2016-12-16] MEDS: ARIPIprazole TAB 15 MG TAB PO SCH (08:10)
--- NOTE | 2016-12-16 09:33 | Psychiatric Progress Notes ---
Progress Note Date of Service Dec 16, 2016. Interval History Javid Garcia is a 21-year-old male with a history of bipolar disorder, who initially presented to the emergency room with his father due to concerns about poorly controlled mood symptoms and inability to function. He had taken himself off of medications one to 2 months ago for unknown reasons. He was admitted voluntarily, but immediately submitted a 72 hour notice requesting to withdraw from treatment. He initially refused all aspects of treatment, including medications and groups, and refused most meals as was committed on a 302. He later started taking medications, and has attended minimal groups. He' s refused visits from his family until 12/15/16 when 303 hearing was requested. Chief Complaint "I still don't feel like anything here is going to help me". Subjective Patient was seen & assessed interval progress reviewed with Treatment Team. Has been compliant with meds, attending minimal groups but behavior seemingly a bit more appropriate. 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 He had difficulty identifying his right hand to swear in due to thought disorganization and appeared disheveled. He was able to verbalize understanding of doctor's recs. His mother arrived a few minutes prior to patient and then his father as 303 was granted. Reviewed with patient and family his current medication regimen/med plan for weekend. Father requested vitamin D results. They were thankful for the extra time in the hospital as don't feel he is organized enough yet to return home and are aware of ELOS through next week. Review of Systems Psych: denies symptoms other than stated above Constitutional: denied Cardiovascular: denied GI: denied Neurologic: denied Sleep Information Total Hours of Sleep: 5.25 Meal Information Percent of Breakfast Consumed: 100 Percent of Lunch Consumed: 100 Percent of Dinner Consumed: 95 Mental Status Exam During interview pt is: guarded Appearance: disheveled (unkempt, thin, pale) Eye contact is: poor Motor behavior is: no abnormal motor movements, psychomotor agitation Speech: other (speech minimal, angry tone) Affect: irritable, constricted, other (incongruent with stated mood) Mood is: other ("it doesn't matter") Thought process: blocking (thought blocking versus unwillingness to answer questions) Thought content: self deprecation Suicidal thought are: denied Homicidal thoughts are: denied Hallucinations: denies auditory, denies visual Cognition: language grossly intact, other (memory and attention are impaired) Intelligence estimated to be: consistent with level of education Insight: severely impaired Judgement: severely impaired Summary of Past History Records from Dr. Duenas were reviewed by Dr. Camilo. At his 09/08/2016 appointment, the patient reported that he felt good during the break, but more "tense" and returning to class. 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 His mother was present for part of the appointment. He was continued on Wellbutrin XL 450 mg daily, Depakote ER 1250 mg, and Abilify 10 mg every morning. The most recent progress note is from 08/2017, at which time the patient reported improved mood since winter, a good trip to the [facility], and intense workload for the spring. He was less concerned about his major. His mother was present for part of the assessment, and no medication changes were made. The patient's mother called him on 11/03/2016, indicating that the patient was acting more manic, called her 5 times a day, was expressing a lot of ideas. His Wellbutrin XL was decreased to 300 mg daily. Medication Trials (1) past psych meds Dr. 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 He is currently on a 303 commitment. Plan (1) Bipolar disorder -Resume home dose of Depakote 750 mg daily at bedtime, and check a trough level after 5 days (12/16/2016). -Resume aripiprazole, starting at lower dose of 2.5 mg today, and increasing to 5 mg every morning tomorrow. Titrate up to effective dose. -Hold bupropion due to risk of destabilizing mood, as has not been taking his mood stabilizer. -Fasting lipid profile and glucose ordered for monitoring on an atypical antipsychotic for tomorrow morning. -Haldol 5 mg by mouth or IM as needed for psychosis. -Request records from Dr. Duenas. So far, the patient is refusing to sign any releases. -Get collateral information from parents. Presently, he is refusing to sign a release or schedule a family meeting. -He is here on a voluntary basis, but has submitted a 72 hour notice requesting to withdraw from treatment. We'll consider the need for a 302 involuntary commitment. -Encourage participation in unit groups and programming once he is able to tolerate it. -Once he is improved, will need to work on healthy coping skills and her discharge safety plan. 12/11 -Refusing all medications and most meals. -Pursue 302 involuntary commitment, and consider medications over objection. -Fasting labs have been postponed until tomorrow. -The patient's father called in, but patient refused to speak with him or to sign a release of information so that staff could speak with family. -Will attempt to contact Dr. Duenas tomorrow. 12/12 -Spoke with Dr. Duenas to coordinate care. He confirms bipolar type I diagnosis, and agrees that psychosis appears to be complicating the clinical picture. He also confirms that at baseline, patient is very close with his family, and current presentation is not normal for him. Reviewed medication plan, and he was in agreement. -Continue aripiprazole and Depakote. Will increase aripiprazole to 7.5 mg daily for tomorrow. -Fasting labs were performed this morning for monitoring on an atypical antipsychotic, and were normal. 12/13 -Continue aripiprazole 7.5 mg daily and Depakote. It appears that the dose of Depakote was incorrectly reported on admission as 750 mg daily at bedtime, as his outpatient records indicate he was on 1250 mg daily. Will increase the dose for tonight, and can check a level in 5 days (12/18/2016). -Continue to hold Wellbutrin, due to risk of destabilizing mood if it is resumed without adequate mood stabilizing medication. -Continue to encourage the patient to participate in treatment. 12/14 -Schedule family meeting with parents. -Consider need for 303 commitment. Today is the first day he has eaten more than one meal, been out of bed, or participated in groups and programming. 12/15 -File for 303 with hearing tomorrow. -Consider increasing Abilify to 10g daily. 12/16 -303 granted, increase Abilify (2) Noncompliance with medications Will coordinate care with Dr. Duenas. Consider the need for long-acting injectable antipsychotic, as the patient has decompensated in been hospitalized at least twice now due to going off of his medications. Discharge / Aftercare Planning Psychiatrist: Name: Dr. Duenas Visit Code E&M Code: 38949 Risk Factors Assessment Male: Yes : Yes /single/: Yes Health problems: No Mental Health Diagnoses: Yes Substance use disorders: No Previous attempt: Yes Family history of suicide: No Previous psychiatric stay: Yes Hopelessness: No Smoker: No Protective Factors Assessment Restorationist beliefs: Yes : No Responsible for young children: No Employed: No Stable relationships: No Supportive family: Yes Data Vital Signs Last 24 Hrs: Date Time Temp Pulse Resp B/P Pulse Ox O2 Delivery O2 Flow Rate FiO2 12/16/16 06:35 36.3 43 81 97/61 64 139/96 Problem Qualifiers (1) Bipolar disorder: Current bipolar episode type: mixed Current episode severity: severe Psychotic features: with psychotic features
[2016-12-16] MEDS: DIVALPROEX SODIUM 250 MG DELAY REL TAB PO SCH (21:27)
[2016-12-17 06:56] VITALS: BP_SYST 107; BP_SYST 123; BP_DIAS 68; BP_DIAS 78; PULSE 51; PULSE 70; TEMP 36.4
[2016-12-17] MEDS ORDERED: ARIPIprazole TAB 5 MG TAB PO STA (09:22)
--- NOTE | 2016-12-17 13:12 | Psychiatric Progress Notes ---
Progress Note Date of Service Dec 17, 2016. Interval History Javid Garcia is a 21-year-old male with a history of bipolar disorder, who initially presented to the emergency room with his father due to concerns about poorly controlled mood symptoms and inability to function. He had taken himself off of medications one to 2 months ago for unknown reasons. He was admitted voluntarily, but immediately submitted a 72 hour notice requesting to withdraw from treatment. He initially refused all aspects of treatment, including medications and groups, and refused most meals as was committed on a 302. He later started taking medications, and has attended minimal groups. He' s refused visits from his family until 12/15/16 when 303 hearing was requested. Chief Complaint "I feel indifferent". Subjective Patient was seen & assessed interval progress reviewed with Treatment Team. 303 granted yesterday. Pt described as disorganized and confused at hearing. Abilify being increased to 10mg today as per primary team. On interview, pt c/o lack of emotions and reflects that this is not normal for him. He appears angry at times but this may be function of though disorganization and confusion. He frequently struggles to identify words. He denies SE associated with med titration. He seems to perceive that he needs help but also ambivalent about value of the intervention. Review of Systems denied med SE. denies akathisia, Sleep Information Total Hours of Sleep: 6.25 Meal Information Percent of Breakfast Consumed: 100 Percent of Lunch Consumed: 75 Percent of Dinner Consumed: 100 Mental Status Exam During interview pt is: guarded Appearance: disheveled (hair appears unwashed ) Eye contact is: fair Motor behavior is: other (no tremor. no agitation. holds hands with fingers clasped) Speech: other (speech minimal, angry tone) Affect: blunted, irritable, other Mood is: other (indifferent) Thought process: blocking Thought content: self deprecation Suicidal thought are: denied Homicidal thoughts are: denied Hallucinations: denies auditory, denies visual Cognition: language grossly intact, other (memory and attention are impaired) Intelligence estimated to be: consistent with level of education Insight: severely impaired Judgement: severely impaired Summary of Past History Records from Dr. Duenas were reviewed by Dr. Camilo. At his 09/08/2016 appointment, the patient reported that he felt good during the break, but more "tense" and returning to class. 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 His mother was present for part of the appointment. He was continued on Wellbutrin XL 450 mg daily, Depakote ER 1250 mg, and Abilify 10 mg every morning. The most recent progress note is from 08/2017, at which time the patient reported improved mood since winter break, a good trip to the [facility], and intense workload for the spring. He was less concerned about his major. His mother was present for part of the assessment, and no medication changes were made. The patient's mother called him on 11/03/2016, indicating that the patient was acting more manic, called her 5 times a day, was expressing a lot of ideas. His Wellbutrin XL was decreased to 300 mg daily. Medication Trials (1) past psych meds Dr. 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 He is currently on a 303 commitment. Plan (1) Bipolar disorder -Resume home dose of Depakote 750 mg daily at bedtime, and check a trough level after 5 days (12/16/2016). -Resume aripiprazole, starting at lower dose of 2.5 mg today, and increasing to 5 mg every morning tomorrow. Titrate up to effective dose. -Hold bupropion due to risk of destabilizing mood, as has not been taking his mood stabilizer. -Fasting lipid profile and glucose ordered for monitoring on an atypical antipsychotic for tomorrow morning. -Haldol 5 mg by mouth or IM as needed for psychosis. -Request records from Dr. Duenas. So far, the patient is refusing to sign any releases. -Get collateral information from parents. Presently, he is refusing to sign a release or schedule a family meeting. -He is here on a voluntary basis, but has submitted a 72 hour notice requesting to withdraw from treatment. We'll consider the need for a 302 involuntary commitment. -Encourage participation in unit groups and programming once he is able to tolerate it. -Once he is improved, will need to work on healthy coping skills and her discharge safety plan. 12/11 -Refusing all medications and most meals. -Pursue 302 involuntary commitment, and consider medications over objection. -Fasting labs have been postponed until tomorrow. -The patient's father called in, but patient refused to speak with him or to sign a release of information so that staff could speak with family. -Will attempt to contact Dr. Duenas tomorrow. 12/12 -Spoke with Dr. Duenas to coordinate care. He confirms bipolar type I diagnosis, and agrees that psychosis appears to be complicating the clinical picture. He also confirms that at baseline, patient is very close with his family, and current presentation is not normal for him. Reviewed medication plan, and he was in agreement. -Continue aripiprazole and Depakote. Will increase aripiprazole to 7.5 mg daily for tomorrow. -Fasting labs were performed this morning for monitoring on an atypical antipsychotic, and were normal. 12/13 -Continue aripiprazole 7.5 mg daily and Depakote. It appears that the dose of Depakote was incorrectly reported on admission as 750 mg daily at bedtime, as his outpatient records indicate he was on 1250 mg daily. Will increase the dose for tonight, and can check a level in 5 days (12/18/2016). -Continue to hold Wellbutrin, due to risk of destabilizing mood if it is resumed without adequate mood stabilizing medication. -Continue to encourage the patient to participate in treatment. 12/14 -Schedule family meeting with parents. -Consider need for 303 commitment. Today is the first day he has eaten more than one meal, been out of bed, or participated in groups and programming. 12/15 -File for 303 with hearing tomorrow. -Consider increasing Abilify to 10g daily. 12/16 -303 granted, increase Abilify 12/17 - remains disorganized. abilify increased to 10mg today. tolerating well. - VPA level tomorrow (2) Noncompliance with medications Will coordinate care with Dr. Duenas. Consider the need for long-acting injectable antipsychotic, as the patient has decompensated in been hospitalized at least twice now due to going off of his medications. Discharge / Aftercare Planning Psychiatrist: Name: Dr. Duenas Visit Code E&M Code: 92277 Risk Factors Assessment Male: Yes : Yes /single/: Yes Health problems: No Mental Health Diagnoses: Yes Substance use disorders: No Previous attempt: Yes Family history of suicide: No Previous psychiatric stay: Yes Hopelessness: No Smoker: No Protective Factors Assessment Yarsani beliefs: Yes : No Responsible for young children: No Employed: No Stable relationships: No Supportive family: Yes Data Vital Signs Last 24 Hrs: Date Time Temp Pulse Resp B/P Pulse Ox O2 Delivery O2 Flow Rate FiO2 12/17/16 06:56 36.4 51 16 107/68 70 123/78 Meds Administered Last 24 Hrs: Meds Administered (Past 24Hrs) Medications (Trade) Dose Ordered Sig/Olena Route Start Time Stop Time Status Last Admin Dose Admin Aripiprazole (Abilify Tab) 2.5 mg ONE STAT PO 12/17/16 09:22 12/17/16 09:35 DC 12/17/16 09:22 2.5 MG Problem Qualifiers (1) Bipolar disorder: Current bipolar episode type: mixed Current episode severity: severe Psychotic features: with psychotic features
[2016-12-17] MEDS: DIVALPROEX SODIUM 250 MG DELAY REL TAB PO SCH (21:32)
[2016-12-18 07:00] VITALS: BP 102/63; PULSE 61; PULSE 66; TEMP 36.4
[2016-12-18] MEDS: ARIPIprazole TAB 10 MG TAB PO SCH (08:26)
--- NOTE | 2016-12-18 13:33 | Psychiatric Progress Notes ---
Progress Note Date of Service Dec 18, 2016. Interval History Javid Garcia is a 21-year-old male with a history of bipolar disorder, who initially presented to the emergency room with his father due to concerns about poorly controlled mood symptoms and inability to function. He had taken himself off of medications one to 2 months ago for unknown reasons. He was admitted voluntarily, but immediately submitted a 72 hour notice requesting to withdraw from treatment, subsequently on 303. Chief Complaint "I don't think I'm any different". Subjective Patient was seen & assessed interval progress reviewed with Treatment Team. Per staff, patient's mother visited yesterday which seemed to go well. They perceive him to be a little more interactive in the past 24 hours. Compliant with medications. On interview, patient denies any change in mood or thought process however he appears little brighter and thoughts more fluid. He describes thoughts as "average." Continues to feel emotionally blunted. We discussed consideration for restarting low-dose Wellbutrin to which initially seemed agreeable, however he then demonstrated a slight change in his affect and became somewhat questioning and commented "I don't think it's one-to-one with me in the medications. I don't necessarily think that being on more is going to be better." Review of Systems Denies restlessness, involuntary movements, tremor Psychiatric: + problem reported (feels flat) Sleep Information Total Hours of Sleep: 5.50 Meal Information Percent of Breakfast Consumed: 100 Percent of Lunch Consumed: 100 Percent of Dinner Consumed: 100 Mental Status Exam During interview pt is: cooperative, guarded Appearance: disheveled Eye contact is: good, fair Motor behavior is: steady gait & station Speech: normal in rate, rhythm & volume Affect: other (generally appearing a little brighter today does become mildly irritable) Mood is: other (unchanged) Thought process: goal directed (better thought cohesion today) Thought content: self deprecation Suicidal thought are: denied Homicidal thoughts are: denied Hallucinations: denies auditory, denies visual Cognition: language grossly intact, other (memory and attention are impaired) Intelligence estimated to be: consistent with level of education Insight: severely impaired Judgement: severely impaired Summary of Past History Records from Dr. Duenas were reviewed by Dr. Camilo. At his 09/08/2016 appointment, the patient reported that he felt good during the gi break, but more "tense" and returning to class. 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 His mother was present for part of the appointment. He was continued on Wellbutrin XL 450 mg daily, Depakote ER 1250 mg, and Abilify 10 mg every morning. The most recent progress note is from 08/2017, at which time the patient reported improved mood since winter break, a good trip to the [facility], and intense workload for the spring. He was less concerned about his major. His mother was present for part of the assessment, and no medication changes were made. The patient's mother called him on 11/03/2016, indicating that the patient was acting more manic, called her 5 times a day, was expressing a lot of ideas. His Wellbutrin XL was decreased to 300 mg daily. Medication Trials (1) past psych meds Dr. 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 He is currently on a 303 commitment. Plan (1) Bipolar disorder -Resume home dose of Depakote 750 mg daily at bedtime, and check a trough level after 5 days (12/16/2016). -Resume aripiprazole, starting at lower dose of 2.5 mg today, and increasing to 5 mg every morning tomorrow. Titrate up to effective dose. -Hold bupropion due to risk of destabilizing mood, as has not been taking his mood stabilizer. -Fasting lipid profile and glucose ordered for monitoring on an atypical antipsychotic for tomorrow morning. -Haldol 5 mg by mouth or IM as needed for psychosis. -Request records from Dr. Duenas. So far, the patient is refusing to sign any releases. -Get collateral information from parents. Presently, he is refusing to sign a release or schedule a family meeting. -He is here on a voluntary basis, but has submitted a 72 hour notice requesting to withdraw from treatment. We'll consider the need for a 302 involuntary commitment. -Encourage participation in unit groups and programming once he is able to tolerate it. -Once he is improved, will need to work on healthy coping skills and her discharge safety plan. 12/11 -Refusing all medications and most meals. -Pursue 302 involuntary commitment, and consider medications over objection. -Fasting labs have been postponed until tomorrow. -The patient's father called in, but patient refused to speak with him or to sign a release of information so that staff could speak with family. -Will attempt to contact Dr. Duenas tomorrow. 12/12 -Spoke with Dr. Duenas to coordinate care. He confirms bipolar type I diagnosis, and agrees that psychosis appears to be complicating the clinical picture. He also confirms that at baseline, patient is very close with his family, and current presentation is not normal for him. Reviewed medication plan, and he was in agreement. -Continue aripiprazole and Depakote. Will increase aripiprazole to 7.5 mg daily for tomorrow. -Fasting labs were performed this morning for monitoring on an atypical antipsychotic, and were normal. 12/13 -Continue aripiprazole 7.5 mg daily and Depakote. It appears that the dose of Depakote was incorrectly reported on admission as 750 mg daily at bedtime, as his outpatient records indicate he was on 1250 mg daily. Will increase the dose for tonight, and can check a level in 5 days (12/18/2016). -Continue to hold Wellbutrin, due to risk of destabilizing mood if it is resumed without adequate mood stabilizing medication. -Continue to encourage the patient to participate in treatment. 12/14 -Schedule family meeting with parents. -Consider need for 303 commitment. Today is the first day he has eaten more than one meal, been out of bed, or participated in groups and programming. 12/15 -File for 303 with hearing tomorrow. -Consider increasing Abilify to 10g daily. 12/16 -303 granted, increase Abilify 12/17 - remains disorganized. abilify increased to 10mg today. tolerating well. - VPA level tomorrow 12/18 - Depakote level 137 which is a little high, however he is not symptomatic or demonstrate side effects from the Depakote and I would not immediately reduce his dose used on his level given need for acute mood stabilization. Should he become symptomatic or once adequate mood stabilization has been achieved and maintained, would then consider reduction - As he is describing some emotional blunting, may consider soon restarting a very gentle dose of Wellbutrin for some activation but will defer this to the primary team (2) Noncompliance with medications Will coordinate care with Dr. Duenas. Consider the need for long-acting injectable antipsychotic, as the patient has decompensated in been hospitalized at least twice now due to going off of his medications. Discharge / Aftercare Planning Psychiatrist: Name: Dr. Duenas Visit Code E&M Code: 40970 Risk Factors Assessment Male: Yes : Yes /single/: Yes Health problems: No Mental Health Diagnoses: Yes Substance use disorders: No Previous attempt: Yes Family history of suicide: No Previous psychiatric stay: Yes Hopelessness: No Smoker: No Protective Factors Assessment Caodaism beliefs: Yes : No Responsible for young children: No Employed: No Stable relationships: No Supportive family: Yes Data Vital Signs Last 24 Hrs: Date Time Temp Pulse Resp B/P Pulse Ox O2 Delivery O2 Flow Rate FiO2 12/18/16 07:00 36.4 61 16 102/63 66 Meds Administered Last 24 Hrs: Meds Administered (Past 24Hrs) Medications (Trade) Dose Ordered Sig/Olena Route Start Time Stop Time Status Last Admin Dose Admin Aripiprazole (Abilify Tab) 10 mg QAM PO 12/18/16 09:00 01/17/17 08:59 12/18/16 08:26 10 MG Aripiprazole (Abilify Tab) 2.5 mg ONE STAT PO 12/17/16 09:22 12/17/16 09:35 DC 12/17/16 09:22 2.5 MG Lab Results Last 24 Hrs: Last 24 Hours Test 12/18/16 08:45 Valproic Acid (Depakene) Level 137 mcg/ml Problem Qualifiers (1) Bipolar disorder: Current bipolar episode type: mixed Current episode severity: severe Psychotic features: with psychotic features
[2016-12-18] MEDS: DIVALPROEX SODIUM 250 MG DELAY REL TAB PO SCH (22:30)
[2016-12-19 07:00] VITALS: BP_SYST 104; BP_SYST 111; BP_DIAS 64; BP_DIAS 65; PULSE 55; PULSE 75; TEMP 36.5
[2016-12-19] MEDS: ARIPIprazole TAB 10 MG TAB PO SCH (07:12)
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
[2016-12-19] MEDS: DIVALPROEX SODIUM 250 MG DELAY REL TAB PO SCH (22:06)
[2016-12-20 07:04] VITALS: BP_SYST 120; BP_SYST 95; BP_DIAS 59; BP_DIAS 64; PULSE 62; PULSE 91; TEMP 36.4
[2016-12-20] MEDS: ARIPIprazole TAB 10 MG TAB PO SCH (08:09)
--- NOTE | 2016-12-20 13:08 | Psychiatric Progress Notes ---
Progress Note Date of Service Dec 20, 2016. Interval History Javid Garcia is a 21-year-old male with a history of bipolar disorder, who initially presented to the emergency room with his father due to concerns about poorly controlled mood symptoms and inability to function. He had taken himself off of medications one to 2 months ago for unknown reasons. He was admitted voluntarily, but immediately submitted a 72 hour notice requesting to withdraw from treatment, subsequently on 303. Chief Complaint "I don't remember what I said yesterday.". Subjective Patient was seen & assessed interval progress reviewed with Treatment Team. The patient is alert and cooperative although says that he doesn't remember what we discussed yesterday and asks that I repeat it. He says that nothing has changed other than he now believes that he wants to have a purpose in life, but doesn't know what that would be. He has nothing that he wants to talk about , continues to deny SI/HI, denies aud/vis hallucinations. He reports good sleep and appetite and has been going to groups more consistently. He is willing for another meeting with his parents to talk about how we move forward. Review of Systems Constitutional: No chills, No fatigue, No fever, No problem reported, No sweats , No weakness, No weight loss ENT: No dental problems, No hearing loss, No nasal symptoms, No problem reported, No sore throat, No tinnitus, No trouble swallowing, No unusual epistaxis Respiratory: No cough, No dyspnea at rest, No dyspnea on exertion, No hemoptysis, No problem reported, No shortness of breath, No sputum, No wheezing Cardiovascular: No PND, No chest pain, No claudication, No edema, No orthopnea , No palpitations, No problem reported Abdomen: No GI bleeding, No constipation, No diarrhea, No nausea, No pain, No problem reported, No vomiting Musculoskeletal: No calf pain, No joint pain, No muscle pain, No problem reported, No swelling Neurologic: No balance problems, No memory loss, No numbness/tingling, No paralysis, No problem reported, No vertigo, No weakness Psychiatric: + problem reported (indifference) Integumentary: No bleeding, No color change, No itch, No new/changing skin lesions, No problem reported, No rash Sleep Information Total Hours of Sleep: 5.00 Meal Information Percent of Breakfast Consumed: 100 Percent of Lunch Consumed: 100 Percent of Dinner Consumed: 100 Mental Status Exam During interview pt is: guarded Appearance: disheveled Eye contact is: fair Motor behavior is: steady gait & station, no abnormal motor movements Speech: normal in rate, rhythm & volume Affect: flat Mood is: other ("fine") Thought process: goal directed (buth withholding/evasive) Thought content: other (guarded, withholding, "Indifferent") Suicidal thought are: denied Homicidal thoughts are: denied Hallucinations: denies auditory, denies visual Cognition: language grossly intact, other (memory and attention are impaired) Intelligence estimated to be: consistent with level of education Insight: severely impaired Judgement: severely impaired Summary of Past History Records from Dr. Duenas were reviewed by Dr. Camilo. At his 09/08/2016 appointment, the patient reported that he felt good during the break, but more "tense" and returning to class. 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 His mother was present for part of the appointment. He was continued on Wellbutrin XL 450 mg daily, Depakote ER 1250 mg, and Abilify 10 mg every morning. The most recent progress note is from 08/2017, at which time the patient reported improved mood since winter break, a good trip to the [employer], and intense workload for the spring. He was less concerned about his major. His mother was present for part of the assessment, and no medication changes were made. The patient's mother called him on 11/03/2016, indicating that the patient was acting more manic, called her 5 times a day, was expressing a lot of ideas. His Wellbutrin XL was decreased to 300 mg daily. Medication Trials (1) past psych meds Dr. Duenas was prescribing: Abilify 10 mg every morning Depakote ER 1250 mg daily Wellbutrin XL 450 mg every morning Last Edited By: Juliana Camilo on Dec 13, 2016 12:00 Impression Again today is difficult to engage to the point that he wanted me to tell him what he said yesterday so he could agree or disagree. No overt psychosis but behaviors odd, schizoid. Affect flat, and motions robot-like. Will plan on another meeting with parents as they are saying that he cannot live at home, and this will impact discharge plans and possibly Taz's thoughts about school. Poly is had a solid augmentation dose of 10 mg. and depakote therapeutic. will continue current meds. patient on a 303. Plan (1) Bipolar disorder -Resume home dose of Depakote 750 mg daily at bedtime, and check a trough level after 5 days (12/16/2016). -Resume aripiprazole, starting at lower dose of 2.5 mg today, and increasing to 5 mg every morning tomorrow. Titrate up to effective dose. -Hold bupropion due to risk of destabilizing mood, as has not been taking his mood stabilizer. -Fasting lipid profile and glucose ordered for monitoring on an atypical antipsychotic for tomorrow morning. -Haldol 5 mg by mouth or IM as needed for psychosis. -Request records from Dr. Duenas. So far, the patient is refusing to sign any releases. -Get collateral information from parents. Presently, he is refusing to sign a release or schedule a family meeting. -He is here on a voluntary basis, but has submitted a 72 hour notice requesting to withdraw from treatment. We'll consider the need for a 302 involuntary commitment. -Encourage participation in unit groups and programming once he is able to tolerate it. -Once he is improved, will need to work on healthy coping skills and her discharge safety plan. 12/11 -Refusing all medications and most meals. -Pursue 302 involuntary commitment, and consider medications over objection. -Fasting labs have been postponed until tomorrow. -The patient's father called in, but patient refused to speak with him or to sign a release of information so that staff could speak with family. -Will attempt to contact Dr. Duenas tomorrow. 12/12 -Spoke with Dr. Duenas to coordinate care. He confirms bipolar type I diagnosis, and agrees that psychosis appears to be complicating the clinical picture. He also confirms that at baseline, patient is very close with his family, and current presentation is not normal for him. Reviewed medication plan, and he was in agreement. -Continue aripiprazole and Depakote. Will increase aripiprazole to 7.5 mg daily for tomorrow. -Fasting labs were performed this morning for monitoring on an atypical antipsychotic, and were normal. 12/13 -Continue aripiprazole 7.5 mg daily and Depakote. It appears that the dose of Depakote was incorrectly reported on admission as 750 mg daily at bedtime, as his outpatient records indicate he was on 1250 mg daily. Will increase the dose for tonight, and can check a level in 5 days (12/18/2016). -Continue to hold Wellbutrin, due to risk of destabilizing mood if it is resumed without adequate mood stabilizing medication. -Continue to encourage the patient to participate in treatment. 12/14 -Schedule family meeting with parents. -Consider need for 303 commitment. Today is the first day he has eaten more than one meal, been out of bed, or participated in groups and programming. 12/15 -File for 303 with hearing tomorrow. -Consider increasing Abilify to 10g daily. 12/16 -303 granted, increase Abilify 12/17 - remains disorganized. abilify increased to 10mg today. tolerating well. - VPA level tomorrow 12/18 - Depakote level 137 which is a little high, however he is not symptomatic or demonstrate side effects from the Depakote and I would not immediately reduce his dose used on his level given need for acute mood stabilization. Should he become symptomatic or once adequate mood stabilization has been achieved and maintained, would then consider reduction - As he is describing some emotional blunting, may consider soon restarting a very gentle dose of Wellbutrin for some activation but will defer this to the primary team 12/19 - Continue current depakote and abilify dosing - Will need meeting with parents to discuss not living at home. (2) Noncompliance with medications Will coordinate care with Dr. Duenas. Consider the need for long-acting injectable antipsychotic, as the patient has decompensated in been hospitalized at least twice now due to going off of his medications. 12/19 - Consider [facility] Discharge / Aftercare Planning Primary Care Physician: Name: Says father had served as PCP, could use [facility] Psychiatrist: Name: Dr. Duenas Therapist: Name: saw Brandon Álvarez in the past Visit Code E&M Code: 25333 Risk Factors Assessment Male: Yes : Yes /single/: Yes Health problems: No Mental Health Diagnoses: Yes Substance use disorders: No Previous attempt: Yes Family history of suicide: No Previous psychiatric stay: Yes Hopelessness: No Smoker: No Protective Factors Assessment Anabaptist beliefs: Yes : No Responsible for young children: No Employed: No Stable relationships: No Supportive family: Yes Data Vital Signs Last 24 Hrs: Date Time Temp Pulse Resp B/P Pulse Ox O2 Delivery O2 Flow Rate FiO2 12/20/16 07:04 36.4 62 16 95/59 91 120/64 Meds Administered Last 24 Hrs: Current Inpatient Medications Medications (Trade) Dose Ordered Sig/Olena Route Start Time Stop Time Status Last Admin Dose Admin Acetaminophen (Tylenol Tab) 650 mg Q4H PRN PO 12/10/16 01:45 01/09/17 01:44 Al Hydroxide/Mg Hydroxide (Maalox Susp) 30 ml Q4H PRN PO 12/10/16 01:45 01/09/17 01:44 Bismuth Subsalicylate (Kaopectate Liqd) 15 ml DAILY PRN PO 12/10/16 01:45 01/09/17 01:44 Magnesium Hydroxide (Milk Of Magnesia Susp) 30 ml DAILY PRN PO 12/10/16 01:45 01/09/17 01:44 Sodium Chloride ([place] Nasal [place]) PRN PRN NA 12/10/16 01:45 01/09/17 01:44 Hydroxyzine HCl (Vistaril Tab) 50 mg HSZ PRN PO 12/10/16 01:45 01/09/17 01:44 Hydroxyzine HCl (Vistaril Tab) 25 mg Q4H PRN PO 12/10/16 01:45 01/09/17 01:44 Haloperidol Lactate (Haldol Inj) 5 mg Q4 PRN IM 12/10/16 11:00 01/09/17 10:59 Haloperidol (Haldol Tab) 5 mg Q4H PRN PO 12/10/16 11:00 01/09/17 10:59 Divalproex Sodium (Depakote Delay Rel Tab) 1,250 mg HS PO 12/13/16 22:00 01/12/17 21:59 12/19/16 22:06 1,250 MG Aripiprazole (Abilify Tab) 10 mg QAM PO 12/18/16 09:00 01/17/17 08:59 12/20/16 08:09 10 MG Lab Results Last 24 Hrs: 12/09/16 22:25 Red Blood Count 5.94, Mean Corpuscular Volume 80.8, Mean Corpuscular Hemoglobin 28.6, Mean Corpuscular Hemoglobin Concent 35.4, Mean Platelet Volume 10.6, Neutrophils (%) (Auto) 52.3, Lymphocytes (%) (Auto) 35.5, Monocytes (%) (Auto) 10.0, Eosinophils (%) (Auto) 1.5, Basophils (%) (Auto) 0.5, Neutrophils # (Auto ) 3.08, Lymphocytes # (Auto) 2.09, Monocytes # (Auto) 0.59, Eosinophils # (Auto ) 0.09, Basophils # (Auto) 0.03 12/09/16 22:25 Test 12/09/16 22:15 12/09/16 22:25 12/09/16 22:28 12/12/16 08:07 Urine Color YELLOW Urine Appearance CLEAR (CLEAR) Urine pH 7.0 (4.5-7.5) Urine Specific [place] 1.021 (1.000-1.030) Urine Protein NEG (NEG) Urine Glucose (UA) NEG (NEG) Urine Ketones NEG (NEG) Urine Occult Blood NEG (NEG) Urine Nitrite NEG (NEG) Urine Bilirubin NEG (NEG) Urine Urobilinogen NEG (NEG) Urine Leukocyte Esterase NEG (NEG) Urine Opiates Screen NEG (NEG) Urine Methadone, Qualitative NEG (NEG) Urine Barbiturates NEG (NEG) Urine Phencyclidine (PCP) Level NEG (NEG) Ur Amphetamine/Methamphetamine NEG (NEG) MDMA (Ecstasy) Screen NEG (NEG) Urine Benzodiazepines Screen NEG (NEG) Urine Cocaine Metabolite NEG (NEG) Urine Marijuana (THC) NEG (NEG) White Blood Count 5.89 K/uL (4.8-10.8) Red Blood Count 5.94 M/uL (4.7-6.1) Hemoglobin 17.0 g/dL (14.0-18.0) Hematocrit 48.0 % (42-52) Mean Corpuscular Volume 80.8 fL (80-100) Mean Corpuscular Hemoglobin 28.6 pg (25-34) Mean Corpuscular Hemoglobin Concent 35.4 g/dl (32-36) Platelet Count 260 K/uL (130-400) Mean Platelet Volume 10.6 fL (7.4-10.4) Neutrophils (%) (Auto) 52.3 % Lymphocytes (%) (Auto) 35.5 % Monocytes (%) (Auto) 10.0 % Eosinophils (%) (Auto) 1.5 % Basophils (%) (Auto) 0.5 % Neutrophils # (Auto) 3.08 K/uL (1.4-6.5) Lymphocytes # (Auto) 2.09 K/uL (1.2-3.4) Monocytes # (Auto) 0.59 K/uL (0.11-0.59) Eosinophils # (Auto) 0.09 K/uL (0-0.5) Basophils # (Auto) 0.03 K/uL (0-0.2) RDW Standard Deviation 38.9 fL (36.4-46.3) RDW Coefficient of Variation 13.1 % (11.5-14.5) Immature Granulocyte % (Auto) 0.2 % Immature Granulocyte # (Auto) 0.01 K/uL (0.00-0.02) Anion Gap 9.0 mmol/L (3-11) Est Creatinine Clear Calc Drug Dose 149.8 ml/min Estimated GFR () 148.8 Estimated GFR (Non- 128.4 BUN/Creatinine Ratio 8.0 (10-20) Calcium Level 8.8 mg/dl (8.5-10.1) Total Bilirubin 0.3 mg/dl (0.2-1) Direct Bilirubin < 0.1 mg/dl (0-0.2) Aspartate Amino Transf (AST/SGOT) 21 U/L (15-37) Alanine Aminotransferase (ALT/SGPT) 23 U/L (12-78) Alkaline Phosphatase 49 U/L (45-117) Total Protein 6.9 gm/dl (6.4-8.2) Albumin 4.2 gm/dl (3.4-5.0) Globulin 2.7 gm/dl (2.5-4.0) Albumin/Globulin Ratio 1.6 (0.9-2) Thyroid Stimulating Hormone (TSH) 1.240 uIu/ml (0.300-4.500) Ethyl Alcohol mg/dL < 3.0 mg/dl (0-3) Vitamin D 1,25-Dihydroxy Total 43 pg/mL (18-72) 1,25 Dihydroxy Vitamin D2 <8 pg/mL 1,25 Dihydroxy Vitamin D3 43 pg/mL Fasting Glucose 87 mg/dl (70-99) Triglycerides Level 92 mg/dl (0-150) Cholesterol Level 126 mg/dl (0-200) HDL Cholesterol 57 mg/dl LDL Cholesterol, Calculated 51 mg/dl VLDL Cholesterol, Calculated 18 mg/dl Cholesterol/HDL Ratio 2.2 Test 12/18/16 08:45 Valproic Acid (Depakene) Level 137 mcg/ml (50-100) Problem Qualifiers (1) Bipolar disorder: Current bipolar episode type: mixed Current episode severity: severe Psychotic features: with psychotic features
[2016-12-20] MEDS: DIVALPROEX SODIUM 250 MG DELAY REL TAB PO SCH (22:03)
[2016-12-21 06:54] VITALS: BP_SYST 116; BP_SYST 99; BP_DIAS 61; BP_DIAS 66; PULSE 86; PULSE 91; TEMP 36.5
--- NOTE | 2016-12-21 08:25 | Psychiatric Progress Notes ---
Progress Note Date of Service Dec 21, 2016. Interval History Javid Garcia is a 21-year-old male with a history of bipolar disorder, who initially presented to the emergency room with his father due to concerns about poorly controlled mood symptoms and inability to function. He had taken himself off of medications one to 2 months ago for unknown reasons. He was admitted voluntarily, but immediately submitted a 72 hour notice requesting to withdraw from treatment, subsequently on 303. Chief Complaint "I ran the half marathon, then I ran a marathon in this shirt, and was blamed for susanne by my dad". Subjective Patient was seen & assessed interval progress reviewed with Treatment Team. He is poorly engaged in treatment, tells staff he is not returning to school, but refuses to sign a release for Student Affairs so that a withdrawal can be processed. He is odd and oppositional in his interactions with staff, denying symptoms that he had endorsed the day before, and gives conflicting reports. His social welfare administrator has attempted to contact his parents to schedule another family meeting to discuss discharge plans, but they have not called back. He is going to groups and has been more interactive with male peers. He is denying hallucinations. His parents have told staff he cannot return to their home, and he says he has no idea where he will go at discharge. He has told other staff that he has a plan, but won't tell them what it is. Today, he continues to be poorly cooperative with the interview, giving brief and vague answers. He answers "stable" to multiple questions, including questions about mood, sleep, and appetite. He rates his mood a 5 out of 10, and says that he doesn't care about anything. He denies hallucinations, but repeatedly asks for questions to be repeated. He denies side effects to medications, and says "I don't know if I 'm having any effects either, that remains to be seen." He cannot recall when he last talked to his family, and does not think they visited yesterday. He says he is "not sure" when asked about what he plans to do with respect to treatment after he leaves the hospital, or where he will live. He does not think that he has a mental illness, and cannot explain why he has been following with an outpatient psychiatrist or taking medications for years. He was very resistant to attempts to discuss discharge planning and where he will go, saying "honestly I'm not too sure about anything, so I'm not sure." When asked what he thinks his options are for places to live after discharge, he says "still looking them over," but refused to be more specific about what he sees as his options. He will not commit to following up with an outpatient psychiatrist, stating "it depends on a few things, still need to think it over. " When it was suggested that his behaviors indicate that he doesn't want to leave the hospital, he stares intently at the table and does not respond. After multiple attempts to engage him, he says "no desire to leave or come." When asked if he wants to be alive, he says "no, but I don't want to be ." Sleep Information Total Hours of Sleep: 5.50 Meal Information Percent of Breakfast Consumed: 100 Percent of Lunch Consumed: 100 Percent of Dinner Consumed: 100 Mental Status Exam During interview pt is: uncooperative, guarded Appearance: disheveled Eye contact is: poor (stares intently at the table, doesn't make eye contact) Motor behavior is: steady gait & station, no abnormal motor movements Speech: other (minimal, at times doesn't respond to questions, annoyed tone) Affect: depressed, irritable, constricted, other (incongruent with stated mood) Mood is: other ("stable") Thought process: goal directed (but withholding/evasive), blocking Thought content: other (negative, "I don't care about anything," appears distracted, cannot rule out responding to internal stimlui) Suicidal thought are: denied Homicidal thoughts are: denied Hallucinations: denies auditory, denies visual Cognition: language grossly intact, other (memory and attention are impaired) Intelligence estimated to be: consistent with level of education Insight: severely impaired Judgement: severely impaired Summary of Past History Records from Dr. Duenas were reviewed by Dr. Camilo. At his 09/08/2016 appointment, the patient reported that he felt good during the break, but more "tense" and returning to class. 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 His mother was present for part of the appointment. He was continued on Wellbutrin XL 450 mg daily, Depakote ER 1250 mg, and Abilify 10 mg every morning. The most recent progress note is from 08/2017, at which time the patient reported improved mood since winter break, a good trip to the [employer], and intense workload for the spring. He was less concerned about his major. His mother was present for part of the assessment, and no medication changes were made. The patient's mother called him on 11/03/2016, indicating that the patient was acting more manic, called her 5 times a day, was expressing a lot of ideas. His Wellbutrin XL was decreased to 300 mg daily. Medication Trials (1) past psych meds Dr. Duenas was prescribing: Abilify 10 mg every morning Depakote ER 1250 mg daily Wellbutrin XL 450 mg every morning Last Edited By: Juliana Camilo on Dec 13, 2016 12:00 Impression The patient remains oppositional and difficult to engage, to the point that he essentially refuses to answer any questions directly. No overt psychosis, but cannot rule out thought blocking and responding to internal stimuli, as attention is poor, and behaviors odd, schizoid. Affect flat, and motions robot- like. Will plan on another meeting with parents as they are saying that he cannot live at home, and this will impact discharge plans and possibly Taz's thoughts about school. Abilify is at a solid augmentation dose of 10 mg, and Depakote therapeutic. Patient on a 303. Plan (1) Bipolar disorder -Resume home dose of Depakote 750 mg daily at bedtime, and check a trough level after 5 days (12/16/2016). -Resume aripiprazole, starting at lower dose of 2.5 mg today, and increasing to 5 mg every morning tomorrow. Titrate up to effective dose. -Hold bupropion due to risk of destabilizing mood, as has not been taking his mood stabilizer. -Fasting lipid profile and glucose ordered for monitoring on an atypical antipsychotic for tomorrow morning. -Haldol 5 mg by mouth or IM as needed for psychosis. -Request records from Dr. Duenas. So far, the patient is refusing to sign any releases. -Get collateral information from parents. Presently, he is refusing to sign a release or schedule a family meeting. -He is here on a voluntary basis, but has submitted a 72 hour notice requesting to withdraw from treatment. We'll consider the need for a 302 involuntary commitment. -Encourage participation in unit groups and programming once he is able to tolerate it. -Once he is improved, will need to work on healthy coping skills and her discharge safety plan. 12/11 -Refusing all medications and most meals. -Pursue 302 involuntary commitment, and consider medications over objection. -Fasting labs have been postponed until tomorrow. -The patient's father called in, but patient refused to speak with him or to sign a release of information so that staff could speak with family. -Will attempt to contact Dr. Duenas tomorrow. 12/12 -Spoke with Dr. Duenas to coordinate care. He confirms bipolar type I diagnosis, and agrees that psychosis appears to be complicating the clinical picture. He also confirms that at baseline, patient is very close with his family, and current presentation is not normal for him. Reviewed medication plan, and he was in agreement. -Continue aripiprazole and Depakote. Will increase aripiprazole to 7.5 mg daily for tomorrow. -Fasting labs were performed this morning for monitoring on an atypical antipsychotic, and were normal. 12/13 -Continue aripiprazole 7.5 mg daily and Depakote. It appears that the dose of Depakote was incorrectly reported on admission as 750 mg daily at bedtime, as his outpatient records indicate he was on 1250 mg daily. Will increase the dose for tonight, and can check a level in 5 days (12/18/2016). -Continue to hold Wellbutrin, due to risk of destabilizing mood if it is resumed without adequate mood stabilizing medication. -Continue to encourage the patient to participate in treatment. 12/14 -Schedule family meeting with parents. -Consider need for 303 commitment. Today is the first day he has eaten more than one meal, been out of bed, or participated in groups and programming. 12/15 -File for 303 with hearing tomorrow. -Consider increasing Abilify to 10g daily. 12/16 -303 granted, increase Abilify 12/17 - remains disorganized. abilify increased to 10mg today. tolerating well. - VPA level tomorrow 12/18 - Depakote level 137 which is a little high, however he is not symptomatic or demonstrate side effects from the Depakote and I would not immediately reduce his dose used on his level given need for acute mood stabilization. Should he become symptomatic or once adequate mood stabilization has been achieved and maintained, would then consider reduction - As he is describing some emotional blunting, may consider soon restarting a very gentle dose of Wellbutrin for some activation but will defer this to the primary team 12/19 - Continue current depakote and abilify dosing - Will need meeting with parents to discuss not living at home. (2) Noncompliance with medications Care coordinated with Dr. Duenas. Consider the need for long-acting injectable antipsychotic, as the patient has decompensated in been hospitalized at least twice now due to going off of his medications. 12/19 - Consider [facility] Discharge / Aftercare Planning Primary Care Physician: Name: Gerard father had served as PCP, could use [facility] Psychiatrist: Name: Dr. Duenas Therapist: Name: saw Brandon Álvarez in the past Visit Code E&M Code: 82641 Risk Factors Assessment Male: Yes : Yes /single/: Yes Health problems: No Mental Health Diagnoses: Yes Substance use disorders: No Previous attempt: Yes Family history of suicide: No Previous psychiatric stay: Yes Hopelessness: No Smoker: No Protective Factors Assessment Worship beliefs: Yes : No Responsible for young children: No Employed: No Stable relationships: No Supportive family: Yes Data Vital Signs Last 24 Hrs: Date Time Temp Pulse Resp B/P Pulse Ox O2 Delivery O2 Flow Rate FiO2 12/21/16 06:54 36.5 86 16 116/66 91 99/61 Problem Qualifiers (1) Bipolar disorder: Current bipolar episode type: mixed Current episode severity: severe Psychotic features: with psychotic features
[2016-12-21] MEDS: ARIPIprazole TAB 10 MG TAB PO SCH (08:41)
[2016-12-21] MEDS: DIVALPROEX SODIUM 250 MG DELAY REL TAB PO SCH (21:27)
[2016-12-22 06:45] VITALS: BP_SYST 103; BP_SYST 93; BP_DIAS 56; BP_DIAS 62; PULSE 66; PULSE 80; TEMP 36.6
[2016-12-22] MEDS: ARIPIprazole TAB 10 MG TAB PO SCH (08:04)
--- NOTE | 2016-12-22 14:59 | Psychiatric Progress Notes ---
Progress Note Date of Service Dec 22, 2016. Interval History Javid Garcia is a 21-year-old male with a history of bipolar disorder, who initially presented to the emergency room with his father due to concerns about poorly controlled mood symptoms and inability to function. He had taken himself off of medications one to 2 months ago for unknown reasons. He was admitted voluntarily, but immediately submitted a 72 hour notice requesting to withdraw from treatment, subsequently on 303. Chief Complaint "Fine". Subjective Patient was seen & assessed interval progress reviewed with Treatment Team. The patient says that nothing is changed. His mood is "stable", denies SI/HI, aud/vis hallucinations. He is aware that there will be a meeting with his parents tomorrow, but has no plan or idea what his plan is moving forward. When asked about paranoia he asks for a definition, and then adamantly says that he is not paranoid. Later in group therapy he said that since he has no plans for his future that he thinks he will kill himself when he leaves here although he doesn't want to. He remains difficult to engage, affectively flat. Review of Systems Constitutional: No chills, No fatigue, No fever, No problem reported, No sweats , No weakness, No weight loss ENT: No dental problems, No hearing loss, No nasal symptoms, No problem reported, No sore throat, No tinnitus, No trouble swallowing, No unusual epistaxis Respiratory: No cough, No dyspnea at rest, No dyspnea on exertion, No hemoptysis, No problem reported, No shortness of breath, No sputum, No wheezing Cardiovascular: No PND, No chest pain, No claudication, No edema, No orthopnea , No palpitations, No problem reported Abdomen: No GI bleeding, No constipation, No diarrhea, No nausea, No pain, No problem reported, No vomiting Musculoskeletal: No calf pain, No joint pain, No muscle pain, No problem reported, No swelling Neurologic: No balance problems, No memory loss, No numbness/tingling, No paralysis, No problem reported, No vertigo, No weakness Psychiatric: + depression symptoms (denies depression but makes suicidal statements) Integumentary: No bleeding, No color change, No itch, No new/changing skin lesions, No problem reported, No rash Sleep Information Total Hours of Sleep: 6.00 Meal Information Percent of Breakfast Consumed: 100 Percent of Lunch Consumed: 100 Percent of Dinner Consumed: 100 Mental Status Exam During interview pt is: alert and oriented, guarded Appearance: disheveled Eye contact is: fair, poor Motor behavior is: steady gait & station, no abnormal motor movements Speech: normal in rate, rhythm & volume Affect: depressed, flat, constricted, other (incongruent with stated mood) Mood is: other ("stable") Thought process: goal directed (but withholding/evasive), blocking Thought content: other (negative, "I don't care about anything," appears distracted, cannot rule out responding to internal stimlui) Suicidal thought are: present (says that since he has no future plans he might as well kill himself after discharge) Homicidal thoughts are: denied Hallucinations: denies auditory, denies visual Cognition: language grossly intact, other (memory and attention are impaired) Intelligence estimated to be: consistent with level of education Insight: severely impaired Judgement: severely impaired Summary of Past History Records from Dr. Duenas were reviewed by Dr. Camilo. At his 09/08/2016 appointment, the patient reported that he felt good during the break, but more "tense" and returning to class. 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 His mother was present for part of the appointment. He was continued on Wellbutrin XL 450 mg daily, Depakote ER 1250 mg, and Abilify 10 mg every morning. The most recent progress note is from 08/2017, at which time the patient reported improved mood since winter break, a good trip to the [place], and intense workload for the spring. He was less concerned about his major. His mother was present for part of the assessment, and no medication changes were made. The patient's mother called him on 11/03/2016, indicating that the patient was acting more manic, called her 5 times a day, was expressing a lot of ideas. His Wellbutrin XL was decreased to 300 mg daily. Medication Trials (1) past psych meds Dr. Duenas was prescribing: Abilify 10 mg every morning Depakote ER 1250 mg daily Wellbutrin XL 450 mg every morning Last Edited By: Juliana Camilo on Dec 13, 2016 12:00 Impression The patient remains oppositional and difficult to engage. No overt psychosis, but cannot rule out thought blocking and responding to internal stimuli, as attention is poor, and behaviors odd, schizoid. Affect flat, and motions robot- like. His ability to reason remains impaired, based on his statements that since he has no future plans, that he should kill himself. Family meeting scheduled for tomorrow. he remains on a 303 commitment. Plan (1) Bipolar disorder -Resume home dose of Depakote 750 mg daily at bedtime, and check a trough level after 5 days (12/16/2016). -Resume aripiprazole, starting at lower dose of 2.5 mg today, and increasing to 5 mg every morning tomorrow. Titrate up to effective dose. -Hold bupropion due to risk of destabilizing mood, as has not been taking his mood stabilizer. -Fasting lipid profile and glucose ordered for monitoring on an atypical antipsychotic for tomorrow morning. -Haldol 5 mg by mouth or IM as needed for psychosis. -Request records from Dr. Duenas. So far, the patient is refusing to sign any releases. -Get collateral information from parents. Presently, he is refusing to sign a release or schedule a family meeting. -He is here on a voluntary basis, but has submitted a 72 hour notice requesting to withdraw from treatment. We'll consider the need for a 302 involuntary commitment. -Encourage participation in unit groups and programming once he is able to tolerate it. -Once he is improved, will need to work on healthy coping skills and her discharge safety plan. 12/11 -Refusing all medications and most meals. -Pursue 302 involuntary commitment, and consider medications over objection. -Fasting labs have been postponed until tomorrow. -The patient's father called in, but patient refused to speak with him or to sign a release of information so that staff could speak with family. -Will attempt to contact Dr. Duenas tomorrow. 12/12 -Spoke with Dr. Duenas to coordinate care. He confirms bipolar type I diagnosis, and agrees that psychosis appears to be complicating the clinical picture. He also confirms that at baseline, patient is very close with his family, and current presentation is not normal for him. Reviewed medication plan, and he was in agreement. -Continue aripiprazole and Depakote. Will increase aripiprazole to 7.5 mg daily for tomorrow. -Fasting labs were performed this morning for monitoring on an atypical antipsychotic, and were normal. 12/13 -Continue aripiprazole 7.5 mg daily and Depakote. It appears that the dose of Depakote was incorrectly reported on admission as 750 mg daily at bedtime, as his outpatient records indicate he was on 1250 mg daily. Will increase the dose for tonight, and can check a level in 5 days (12/18/2016). -Continue to hold Wellbutrin, due to risk of destabilizing mood if it is resumed without adequate mood stabilizing medication. -Continue to encourage the patient to participate in treatment. 12/14 -Schedule family meeting with parents. -Consider need for 303 commitment. Today is the first day he has eaten more than one meal, been out of bed, or participated in groups and programming. 12/15 -File for 303 with hearing tomorrow. -Consider increasing Abilify to 10g daily. 12/16 -303 granted, increase Abilify 12/17 - remains disorganized. abilify increased to 10mg today. tolerating well. - VPA level tomorrow 12/18 - Depakote level 137 which is a little high, however he is not symptomatic or demonstrate side effects from the Depakote and I would not immediately reduce his dose used on his level given need for acute mood stabilization. Should he become symptomatic or once adequate mood stabilization has been achieved and maintained, would then consider reduction - As he is describing some emotional blunting, may consider soon restarting a very gentle dose of Wellbutrin for some activation but will defer this to the primary team 12/19 - Continue current depakote and abilify dosing - Will need meeting with parents to discuss not living at home. 12/22 - Family meeting tomorrow (2) Noncompliance with medications Care coordinated with Dr. Duenas. Consider the need for long-acting injectable antipsychotic, as the patient has decompensated in been hospitalized at least twice now due to going off of his medications. 12/19 - Consider JOS[facility] Discharge / Aftercare Planning Primary Care Physician: Name: Says father had served as PCP, could use [facility] Psychiatrist: Name: Dr. Duenas Therapist: Name: saw Brandon Álvarez in the past Visit Code E&M Code: 26924 Risk Factors Assessment Male: Yes : Yes /single/: Yes Health problems: No Mental Health Diagnoses: Yes Substance use disorders: No Previous attempt: Yes Family history of suicide: No Previous psychiatric stay: Yes Hopelessness: No Smoker: No Protective Factors Assessment Hinduism beliefs: Yes : No Responsible for young children: No Employed: No Stable relationships: No Supportive family: Yes Data Vital Signs Last 24 Hrs: Date Time Temp Pulse Resp B/P Pulse Ox O2 Delivery O2 Flow Rate FiO2 12/22/16 06:45 36.6 66 16 93/56 80 103/62 Meds Administered Last 24 Hrs: Current Inpatient Medications Medications (Trade) Dose Ordered Sig/Olena Route Start Time Stop Time Status Last Admin Dose Admin Acetaminophen (Tylenol Tab) 650 mg Q4H PRN PO 12/10/16 01:45 01/09/17 01:44 Al Hydroxide/Mg Hydroxide (Maalox Susp) 30 ml Q4H PRN PO 12/10/16 01:45 01/09/17 01:44 Bismuth Subsalicylate (Kaopectate Liqd) 15 ml DAILY PRN PO 12/10/16 01:45 01/09/17 01:44 Magnesium Hydroxide (Milk Of Magnesia Susp) 30 ml DAILY PRN PO 12/10/16 01:45 01/09/17 01:44 Sodium Chloride ([place] Nasal [place]) PRN PRN NA 12/10/16 01:45 01/09/17 01:44 Hydroxyzine HCl (Vistaril Tab) 50 mg HSZ PRN PO 12/10/16 01:45 01/09/17 01:44 Hydroxyzine HCl (Vistaril Tab) 25 mg Q4H PRN PO 12/10/16 01:45 01/09/17 01:44 Haloperidol Lactate (Haldol Inj) 5 mg Q4 PRN IM 12/10/16 11:00 01/09/17 10:59 Haloperidol (Haldol Tab) 5 mg Q4H PRN PO 12/10/16 11:00 01/09/17 10:59 Divalproex Sodium (Depakote Delay Rel Tab) 1,250 mg HS PO 12/13/16 22:00 01/12/17 21:59 12/21/16 21:27 1,250 MG Aripiprazole (Abilify Tab) 10 mg QAM PO 12/18/16 09:00 01/17/17 08:59 12/22/16 08:04 10 MG Lab Results Last 24 Hrs: 12/09/16 22:25 Red Blood Count 5.94, Mean Corpuscular Volume 80.8, Mean Corpuscular Hemoglobin 28.6, Mean Corpuscular Hemoglobin Concent 35.4, Mean Platelet Volume 10.6, Neutrophils (%) (Auto) 52.3, Lymphocytes (%) (Auto) 35.5, Monocytes (%) (Auto) 10.0, Eosinophils (%) (Auto) 1.5, Basophils (%) (Auto) 0.5, Neutrophils # (Auto ) 3.08, Lymphocytes # (Auto) 2.09, Monocytes # (Auto) 0.59, Eosinophils # (Auto ) 0.09, Basophils # (Auto) 0.03 12/09/16 22:25 Test 12/09/16 22:15 12/09/16 22:25 12/09/16 22:28 12/12/16 08:07 Urine Color YELLOW Urine Appearance CLEAR (CLEAR) Urine pH 7.0 (4.5-7.5) Urine Specific Natalia 1.021 (1.000-1.030) Urine Protein NEG (NEG) Urine Glucose (UA) NEG (NEG) Urine Ketones NEG (NEG) Urine Occult Blood NEG (NEG) Urine Nitrite NEG (NEG) Urine Bilirubin NEG (NEG) Urine Urobilinogen NEG (NEG) Urine Leukocyte Esterase NEG (NEG) Urine Opiates Screen NEG (NEG) Urine Methadone, Qualitative NEG (NEG) Urine Barbiturates NEG (NEG) Urine Phencyclidine (PCP) Level NEG (NEG) Ur Amphetamine/Methamphetamine NEG (NEG) MDMA (Ecstasy) Screen NEG (NEG) Urine Benzodiazepines Screen NEG (NEG) Urine Cocaine Metabolite NEG (NEG) Urine Marijuana (THC) NEG (NEG) White Blood Count 5.89 K/uL (4.8-10.8) Red Blood Count 5.94 M/uL (4.7-6.1) Hemoglobin 17.0 g/dL (14.0-18.0) Hematocrit 48.0 % (42-52) Mean Corpuscular Volume 80.8 fL (80-100) Mean Corpuscular Hemoglobin 28.6 pg (25-34) Mean Corpuscular Hemoglobin Concent 35.4 g/dl (32-36) Platelet Count 260 K/uL (130-400) Mean Platelet Volume 10.6 fL (7.4-10.4) Neutrophils (%) (Auto) 52.3 % Lymphocytes (%) (Auto) 35.5 % Monocytes (%) (Auto) 10.0 % Eosinophils (%) (Auto) 1.5 % Basophils (%) (Auto) 0.5 % Neutrophils # (Auto) 3.08 K/uL (1.4-6.5) Lymphocytes # (Auto) 2.09 K/uL (1.2-3.4) Monocytes # (Auto) 0.59 K/uL (0.11-0.59) Eosinophils # (Auto) 0.09 K/uL (0-0.5) Basophils # (Auto) 0.03 K/uL (0-0.2) RDW Standard Deviation 38.9 fL (36.4-46.3) RDW Coefficient of Variation 13.1 % (11.5-14.5) Immature Granulocyte % (Auto) 0.2 % Immature Granulocyte # (Auto) 0.01 K/uL (0.00-0.02) Anion Gap 9.0 mmol/L (3-11) Est Creatinine Clear Calc Drug Dose 149.8 ml/min Estimated GFR () 148.8 Estimated GFR (Non- 128.4 BUN/Creatinine Ratio 8.0 (10-20) Calcium Level 8.8 mg/dl (8.5-10.1) Total Bilirubin 0.3 mg/dl (0.2-1) Direct Bilirubin < 0.1 mg/dl (0-0.2) Aspartate Amino Transf (AST/SGOT) 21 U/L (15-37) Alanine Aminotransferase (ALT/SGPT) 23 U/L (12-78) Alkaline Phosphatase 49 U/L (45-117) Total Protein 6.9 gm/dl (6.4-8.2) Albumin 4.2 gm/dl (3.4-5.0) Globulin 2.7 gm/dl (2.5-4.0) Albumin/Globulin Ratio 1.6 (0.9-2) Thyroid Stimulating Hormone (TSH) 1.240 uIu/ml (0.300-4.500) Ethyl Alcohol mg/dL < 3.0 mg/dl (0-3) Vitamin D 1,25-Dihydroxy Total 43 pg/mL (18-72) 1,25 Dihydroxy Vitamin D2 <8 pg/mL 1,25 Dihydroxy Vitamin D3 43 pg/mL Fasting Glucose 87 mg/dl (70-99) Triglycerides Level 92 mg/dl (0-150) Cholesterol Level 126 mg/dl (0-200) HDL Cholesterol 57 mg/dl LDL Cholesterol, Calculated 51 mg/dl VLDL Cholesterol, Calculated 18 mg/dl Cholesterol/HDL Ratio 2.2 Test 12/18/16 08:45 Valproic Acid (Depakene) Level 137 mcg/ml (50-100) Problem Qualifiers (1) Bipolar disorder: Current bipolar episode type: mixed Current episode severity: severe Psychotic features: with psychotic features
[2016-12-22] MEDS: DIVALPROEX SODIUM 250 MG DELAY REL TAB PO SCH (21:14)
[2016-12-23 06:51] VITALS: BP_SYST 102; BP_SYST 116; BP_DIAS 65; BP_DIAS 75; PULSE 56; PULSE 66; TEMP 36.4
[2016-12-23] MEDS: ARIPIprazole TAB 10 MG TAB PO SCH (08:40)
--- NOTE | 2016-12-23 12:27 | Psychiatric Progress Notes ---
Progress Note Date of Service Dec 23, 2016. Interval History Javid Garcia is a 21-year-old male with a history of bipolar disorder, who initially presented to the emergency room with his father due to concerns about poorly controlled mood symptoms and inability to function. He had taken himself off of medications one to 2 months ago for unknown reasons. He was admitted voluntarily, but immediately submitted a 72 hour notice requesting to withdraw from treatment, subsequently on 303. Chief Complaint "I'm OK". Subjective Patient was seen & assessed interval progress reviewed with Treatment Team. The patient is resistant to talking at length, no wanting to explore discharge options, nor wanting to explain his thinking. Yesterday he made a statement in group that since he had no plans after discharge then he might as well kill himself. Today he does not remember making that statement but says, "You can use it anyway.". He will not engage in conversation about what possible living options he could explore, saying only "I'll talk with my parents about that.". He continues to deny SI/HI, aud/vis hallucinations or paranoia. Review of Systems Constitutional: No chills, No fatigue, No fever, No problem reported, No sweats , No weakness, No weight loss ENT: No dental problems, No hearing loss, No nasal symptoms, No problem reported, No sore throat, No tinnitus, No trouble swallowing, No unusual epistaxis Respiratory: No cough, No dyspnea at rest, No dyspnea on exertion, No hemoptysis, No problem reported, No shortness of breath, No sputum, No wheezing Cardiovascular: No PND, No chest pain, No claudication, No edema, No orthopnea , No palpitations, No problem reported Abdomen: No GI bleeding, No constipation, No diarrhea, No nausea, No pain, No problem reported, No vomiting Musculoskeletal: No calf pain, No joint pain, No muscle pain, No problem reported, No swelling Neurologic: No balance problems, No memory loss, No numbness/tingling, No paralysis, No problem reported, No vertigo, No weakness Psychiatric: + problem reported (Guarded, resistant) Integumentary: No bleeding, No color change, No itch, No new/changing skin lesions, No problem reported, No rash Sleep Information Total Hours of Sleep: 6.00 Meal Information Percent of Breakfast Consumed: 100 Percent of Lunch Consumed: 100 Percent of Dinner Consumed: 100 Mental Status Exam During interview pt is: alert and oriented, guarded Appearance: disheveled Eye contact is: poor Motor behavior is: steady gait & station, no abnormal motor movements Speech: normal in rate, rhythm & volume Affect: depressed, flat, other (incongruent with stated mood) Mood is: other ("stable") Thought process: goal directed (but withholding/evasive) Thought content: other (denies overt psychosis, but avoidant, refusing to engage in reasonable ways. ) Suicidal thought are: present (says that since he has no future plans he might as well kill himself after discharge) Homicidal thoughts are: denied Hallucinations: denies auditory, denies visual Cognition: language grossly intact, other (memory and attention are impaired) Intelligence estimated to be: consistent with level of education Insight: severely impaired Judgement: severely impaired Summary of Past History Records from Dr. Duenas were reviewed by Dr. Camilo. At his 09/08/2016 appointment, the patient reported that he felt good during the break, but more "tense" and returning to class. 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 His mother was present for part of the appointment. He was continued on Wellbutrin XL 450 mg daily, Depakote ER 1250 mg, and Abilify 10 mg every morning. The most recent progress note is from 08/2017, at which time the patient reported improved mood since winter, a good trip to the [facility], and intense workload for the spring. He was less concerned about his major. His mother was present for part of the assessment, and no medication changes were made. The patient's mother called him on 11/03/2016, indicating that the patient was acting more manic, called her 5 times a day, was expressing a lot of ideas. His Wellbutrin XL was decreased to 300 mg daily. Medication Trials (1) past psych meds Dr. Duenas was prescribing: Abilify 10 mg every morning Depakote ER 1250 mg daily Wellbutrin XL 450 mg every morning Last Edited By: Juliana Camilo on Dec 13, 2016 12:00 Impression The patient remains oppositional and difficult to engage. No overt psychosis, but cannot rule out thought blocking and responding to internal stimuli, as attention is poor, and behaviors odd, schizoid. Affect flat, and motions robot- like. His ability to reason remains impaired, based on his statements that since he has no future plans, that he should kill himself. Family meeting scheduled for this afternoon to discuss plans moving forward. he remains on a 303 commitment. Depakote is therapeutic. Will increase Abilify to 12.5 mg. daily Plan (1) Bipolar disorder -Resume home dose of Depakote 750 mg daily at bedtime, and check a trough level after 5 days (12/16/2016). -Resume aripiprazole, starting at lower dose of 2.5 mg today, and increasing to 5 mg every morning tomorrow. Titrate up to effective dose. -Hold bupropion due to risk of destabilizing mood, as has not been taking his mood stabilizer. -Fasting lipid profile and glucose ordered for monitoring on an atypical antipsychotic for tomorrow morning. -Haldol 5 mg by mouth or IM as needed for psychosis. -Request records from Dr. Duenas. So far, the patient is refusing to sign any releases. -Get collateral information from parents. Presently, he is refusing to sign a release or schedule a family meeting. -He is here on a voluntary basis, but has submitted a 72 hour notice requesting to withdraw from treatment. We'll consider the need for a 302 involuntary commitment. -Encourage participation in unit groups and programming once he is able to tolerate it. -Once he is improved, will need to work on healthy coping skills and her discharge safety plan. 12/11 -Refusing all medications and most meals. -Pursue 302 involuntary commitment, and consider medications over objection. -Fasting labs have been postponed until tomorrow. -The patient's father called in, but patient refused to speak with him or to sign a release of information so that staff could speak with family. -Will attempt to contact Dr. Duenas tomorrow. 12/12 -Spoke with Dr. Duenas to coordinate care. He confirms bipolar type I diagnosis, and agrees that psychosis appears to be complicating the clinical picture. He also confirms that at baseline, patient is very close with his family, and current presentation is not normal for him. Reviewed medication plan, and he was in agreement. -Continue aripiprazole and Depakote. Will increase aripiprazole to 7.5 mg daily for tomorrow. -Fasting labs were performed this morning for monitoring on an atypical antipsychotic, and were normal. 12/13 -Continue aripiprazole 7.5 mg daily and Depakote. It appears that the dose of Depakote was incorrectly reported on admission as 750 mg daily at bedtime, as his outpatient records indicate he was on 1250 mg daily. Will increase the dose for tonight, and can check a level in 5 days (12/18/2016). -Continue to hold Wellbutrin, due to risk of destabilizing mood if it is resumed without adequate mood stabilizing medication. -Continue to encourage the patient to participate in treatment. 12/14 -Schedule family meeting with parents. -Consider need for 303 commitment. Today is the first day he has eaten more than one meal, been out of bed, or participated in groups and programming. 12/15 -File for 303 with hearing tomorrow. -Consider increasing Abilify to 10g daily. 12/16 -303 granted, increase Abilify 12/17 - remains disorganized. abilify increased to 10mg today. tolerating well. - VPA level tomorrow 12/18 - Depakote level 137 which is a little high, however he is not symptomatic or demonstrate side effects from the Depakote and I would not immediately reduce his dose used on his level given need for acute mood stabilization. Should he become symptomatic or once adequate mood stabilization has been achieved and maintained, would then consider reduction - As he is describing some emotional blunting, may consider soon restarting a very gentle dose of Wellbutrin for some activation but will defer this to the primary team 12/19 - Continue current depakote and abilify dosing - Will need meeting with parents to discuss not living at home. 12/22 - Family meeting tomorrow 12/23 - Increase Abilify to 12.5 mg. daily - family meeting this afternoon. (2) Noncompliance with medications Care coordinated with Dr. Duenas. Consider the need for long-acting injectable antipsychotic, as the patient has decompensated in been hospitalized at least twice now due to going off of his medications. 12/19 - Consider JOS[facility] Discharge / Aftercare Planning Primary Care Physician: Name: Says father had served as PCP, could use [facility] Psychiatrist: Name: Dr. Duenas Therapist: Name: dixie Brandon Garciaelroy in the past Visit Code E&M Code: 86990 Risk Factors Assessment Male: Yes : Yes /single/: Yes Health problems: No Mental Health Diagnoses: Yes Substance use disorders: No Previous attempt: Yes Family history of suicide: No Previous psychiatric stay: Yes Hopelessness: No Smoker: No Protective Factors Assessment Scientologist beliefs: Yes : No Responsible for young children: No Employed: No Stable relationships: No Supportive family: Yes Data Vital Signs Last 24 Hrs: Date Time Temp Pulse Resp B/P Pulse Ox O2 Delivery O2 Flow Rate FiO2 12/23/16 06:51 36.4 56 16 102/65 66 116/75 Meds Administered Last 24 Hrs: Current Inpatient Medications Medications (Trade) Dose Ordered Sig/Olena Route Start Time Stop Time Status Last Admin Dose Admin Acetaminophen (Tylenol Tab) 650 mg Q4H PRN PO 12/10/16 01:45 01/09/17 01:44 Al Hydroxide/Mg Hydroxide (Maalox Susp) 30 ml Q4H PRN PO 12/10/16 01:45 01/09/17 01:44 Bismuth Subsalicylate (Kaopectate Liqd) 15 ml DAILY PRN PO 12/10/16 01:45 01/09/17 01:44 Magnesium Hydroxide (Milk Of Magnesia Susp) 30 ml DAILY PRN PO 12/10/16 01:45 01/09/17 01:44 Sodium Chloride ([place] Nasal [place]) PRN PRN NA 12/10/16 01:45 01/09/17 01:44 Hydroxyzine HCl (Vistaril Tab) 50 mg HSZ PRN PO 12/10/16 01:45 01/09/17 01:44 Hydroxyzine HCl (Vistaril Tab) 25 mg Q4H PRN PO 12/10/16 01:45 01/09/17 01:44 Haloperidol Lactate (Haldol Inj) 5 mg Q4 PRN IM 12/10/16 11:00 01/09/17 10:59 Haloperidol (Haldol Tab) 5 mg Q4H PRN PO 12/10/16 11:00 01/09/17 10:59 Divalproex Sodium (Depakote Delay Rel Tab) 1,250 mg HS PO 12/13/16 22:00 01/12/17 21:59 12/22/16 21:14 1,250 MG Aripiprazole (Abilify Tab) 10 mg QAM PO 12/18/16 09:00 01/17/17 08:59 12/23/16 08:40 10 MG Lab Results Last 24 Hrs: 12/09/16 22:25 Red Blood Count 5.94, Mean Corpuscular Volume 80.8, Mean Corpuscular Hemoglobin 28.6, Mean Corpuscular Hemoglobin Concent 35.4, Mean Platelet Volume 10.6, Neutrophils (%) (Auto) 52.3, Lymphocytes (%) (Auto) 35.5, Monocytes (%) (Auto) 10.0, Eosinophils (%) (Auto) 1.5, Basophils (%) (Auto) 0.5, Neutrophils # (Auto ) 3.08, Lymphocytes # (Auto) 2.09, Monocytes # (Auto) 0.59, Eosinophils # (Auto ) 0.09, Basophils # (Auto) 0.03 12/09/16 22:25 Test 12/09/16 22:15 12/09/16 22:25 12/09/16 22:28 12/12/16 08:07 Urine Color YELLOW Urine Appearance CLEAR (CLEAR) Urine pH 7.0 (4.5-7.5) Urine Specific [place] 1.021 (1.000-1.030) Urine Protein NEG (NEG) Urine Glucose (UA) NEG (NEG) Urine Ketones NEG (NEG) Urine Occult Blood NEG (NEG) Urine Nitrite NEG (NEG) Urine Bilirubin NEG (NEG) Urine Urobilinogen NEG (NEG) Urine Leukocyte Esterase NEG (NEG) Urine Opiates Screen NEG (NEG) Urine Methadone, Qualitative NEG (NEG) Urine Barbiturates NEG (NEG) Urine Phencyclidine (PCP) Level NEG (NEG) Ur Amphetamine/Methamphetamine NEG (NEG) MDMA (Ecstasy) Screen NEG (NEG) Urine Benzodiazepines Screen NEG (NEG) Urine Cocaine Metabolite NEG (NEG) Urine Marijuana (THC) NEG (NEG) White Blood Count 5.89 K/uL (4.8-10.8) Red Blood Count 5.94 M/uL (4.7-6.1) Hemoglobin 17.0 g/dL (14.0-18.0) Hematocrit 48.0 % (42-52) Mean Corpuscular Volume 80.8 fL (80-100) Mean Corpuscular Hemoglobin 28.6 pg (25-34) Mean Corpuscular Hemoglobin Concent 35.4 g/dl (32-36) Platelet Count 260 K/uL (130-400) Mean Platelet Volume 10.6 fL (7.4-10.4) Neutrophils (%) (Auto) 52.3 % Lymphocytes (%) (Auto) 35.5 % Monocytes (%) (Auto) 10.0 % Eosinophils (%) (Auto) 1.5 % Basophils (%) (Auto) 0.5 % Neutrophils # (Auto) 3.08 K/uL (1.4-6.5) Lymphocytes # (Auto) 2.09 K/uL (1.2-3.4) Monocytes # (Auto) 0.59 K/uL (0.11-0.59) Eosinophils # (Auto) 0.09 K/uL (0-0.5) Basophils # (Auto) 0.03 K/uL (0-0.2) RDW Standard Deviation 38.9 fL (36.4-46.3) RDW Coefficient of Variation 13.1 % (11.5-14.5) Immature Granulocyte % (Auto) 0.2 % Immature Granulocyte # (Auto) 0.01 K/uL (0.00-0.02) Anion Gap 9.0 mmol/L (3-11) Est Creatinine Clear Calc Drug Dose 149.8 ml/min Estimated GFR () 148.8 Estimated GFR (Non- 128.4 BUN/Creatinine Ratio 8.0 (10-20) Calcium Level 8.8 mg/dl (8.5-10.1) Total Bilirubin 0.3 mg/dl (0.2-1) Direct Bilirubin < 0.1 mg/dl (0-0.2) Aspartate Amino Transf (AST/SGOT) 21 U/L (15-37) Alanine Aminotransferase (ALT/SGPT) 23 U/L (12-78) Alkaline Phosphatase 49 U/L (45-117) Total Protein 6.9 gm/dl (6.4-8.2) Albumin 4.2 gm/dl (3.4-5.0) Globulin 2.7 gm/dl (2.5-4.0) Albumin/Globulin Ratio 1.6 (0.9-2) Thyroid Stimulating Hormone (TSH) 1.240 uIu/ml (0.300-4.500) Ethyl Alcohol mg/dL < 3.0 mg/dl (0-3) Vitamin D 1,25-Dihydroxy Total 43 pg/mL (18-72) 1,25 Dihydroxy Vitamin D2 <8 pg/mL 1,25 Dihydroxy Vitamin D3 43 pg/mL Fasting Glucose 87 mg/dl (70-99) Triglycerides Level 92 mg/dl (0-150) Cholesterol Level 126 mg/dl (0-200) HDL Cholesterol 57 mg/dl LDL Cholesterol, Calculated 51 mg/dl VLDL Cholesterol, Calculated 18 mg/dl Cholesterol/HDL Ratio 2.2 Test 12/18/16 08:45 Valproic Acid (Depakene) Level 137 mcg/ml (50-100) Problem Qualifiers (1) Bipolar disorder: Current bipolar episode type: mixed Current episode severity: severe Psychotic features: with psychotic features
[2016-12-23] MEDS: DIVALPROEX SODIUM 250 MG DELAY REL TAB PO SCH (20:54)
[2016-12-24 06:55] VITALS: BP_SYST 105; BP_SYST 86; BP_DIAS 48; BP_DIAS 68; PULSE 62; PULSE 64; TEMP 36.4
[2016-12-24] MEDS ORDERED: ARIPIprazole TAB 5 MG TAB PO SCH (09:00)
--- NOTE | 2016-12-24 15:33 | Psychiatric Progress Notes ---
Progress Note Date of Service Dec 24, 2016. Interval History Javid Garcia is a 21-year-old male with a history of bipolar disorder, who initially presented to the emergency room with his father due to concerns about poorly controlled mood symptoms and inability to function. He had taken himself off of medications one to 2 months ago for unknown reasons. He was admitted voluntarily, but immediately submitted a 72 hour notice requesting to withdraw from treatment, subsequently on 303. Chief Complaint "Good". Subjective Patient was seen & assessed interval progress reviewed with Treatment Team. Patient tolerating medications well. No significant side effects. Has remained withdrawn in his room. Continues to feel agitated. Denies any thoughts to harm himself or others and denies making such statements. Review of Systems Constitutional: No chills, No fatigue, No fever, No problem reported, No sweats , No weakness, No weight loss ENT: No dental problems, No hearing loss, No nasal symptoms, No problem reported, No sore throat, No tinnitus, No trouble swallowing, No unusual epistaxis Respiratory: No cough, No dyspnea at rest, No dyspnea on exertion, No hemoptysis, No problem reported, No shortness of breath, No sputum, No wheezing Cardiovascular: No PND, No chest pain, No claudication, No edema, No orthopnea , No palpitations, No problem reported Abdomen: No GI bleeding, No constipation, No diarrhea, No nausea, No pain, No problem reported, No vomiting Musculoskeletal: No calf pain, No joint pain, No muscle pain, No problem reported, No swelling Neurologic: No balance problems, No memory loss, No numbness/tingling, No paralysis, No problem reported, No vertigo, No weakness Psychiatric: + problem reported (Guarded, resistant) Integumentary: No bleeding, No color change, No itch, No new/changing skin lesions, No problem reported, No rash Sleep Information Total Hours of Sleep: 5.00 Meal Information Percent of Breakfast Consumed: 100 Percent of Lunch Consumed: 100 Percent of Dinner Consumed: 100 Mental Status Exam During interview pt is: alert and oriented, guarded Appearance: disheveled Eye contact is: poor Motor behavior is: steady gait & station, no abnormal motor movements Speech: normal in rate, rhythm & volume Affect: depressed, flat, other (incongruent with stated mood) Mood is: other ("stable") Thought process: goal directed (but withholding/evasive) Thought content: other (denies overt psychosis, but avoidant, refusing to engage in reasonable ways. ) Suicidal thought are: present (says that since he has no future plans he might as well kill himself after discharge) Homicidal thoughts are: denied Hallucinations: denies auditory, denies visual Cognition: language grossly intact, other (memory and attention are impaired) Intelligence estimated to be: consistent with level of education Insight: severely impaired Judgement: severely impaired Summary of Past History Records from Dr. Duenas were reviewed by Dr. Camilo. At his 09/08/2016 appointment, the patient reported that he felt good during the break, but more "tense" and returning to class. 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 His mother was present for part of the appointment. He was continued on Wellbutrin XL 450 mg daily, Depakote ER 1250 mg, and Abilify 10 mg every morning. The most recent progress note is from 08/2017, at which time the patient reported improved mood since winter, a good trip to the [facility], and intense workload for the spring. He was less concerned about his major. His mother was present for part of the assessment, and no medication changes were made. The patient's mother called him on 11/03/2016, indicating that the patient was acting more manic, called her 5 times a day, was expressing a lot of ideas. His Wellbutrin XL was decreased to 300 mg daily. Medication Trials (1) past psych meds Dr. Duenas was prescribing: Abilify 10 mg every morning Depakote ER 1250 mg daily Wellbutrin XL 450 mg every morning Last Edited By: Juliana Camilo on Dec 13, 2016 12:00 Impression The patient remains oppositional and difficult to engage. No overt psychosis, but cannot rule out thought blocking and responding to internal stimuli, as attention is poor, and behaviors odd, schizoid. Affect flat, and motions robot- like. His ability to reason remains impaired, based on his statements that since he has no future plans, that he should kill himself. Family meeting scheduled for this afternoon to discuss plans moving forward. he remains on a 303 commitment. Depakote is therapeutic. Will increase Abilify to 12.5 mg. daily Plan (1) Bipolar disorder -Resume home dose of Depakote 750 mg daily at bedtime, and check a trough level after 5 days (12/16/2016). -Resume aripiprazole, starting at lower dose of 2.5 mg today, and increasing to 5 mg every morning tomorrow. Titrate up to effective dose. -Hold bupropion due to risk of destabilizing mood, as has not been taking his mood stabilizer. -Fasting lipid profile and glucose ordered for monitoring on an atypical antipsychotic for tomorrow morning. -Haldol 5 mg by mouth or IM as needed for psychosis. -Request records from Dr. Duenas. So far, the patient is refusing to sign any releases. -Get collateral information from parents. Presently, he is refusing to sign a release or schedule a family meeting. -He is here on a voluntary basis, but has submitted a 72 hour notice requesting to withdraw from treatment. We'll consider the need for a 302 involuntary commitment. -Encourage participation in unit groups and programming once he is able to tolerate it. -Once he is improved, will need to work on healthy coping skills and her discharge safety plan. 12/11 -Refusing all medications and most meals. -Pursue 302 involuntary commitment, and consider medications over objection. -Fasting labs have been postponed until tomorrow. -The patient's father called in, but patient refused to speak with him or to sign a release of information so that staff could speak with family. -Will attempt to contact Dr. Duenas tomorrow. 12/12 -Spoke with Dr. Duenas to coordinate care. He confirms bipolar type I diagnosis, and agrees that psychosis appears to be complicating the clinical picture. He also confirms that at baseline, patient is very close with his family, and current presentation is not normal for him. Reviewed medication plan, and he was in agreement. -Continue aripiprazole and Depakote. Will increase aripiprazole to 7.5 mg daily for tomorrow. -Fasting labs were performed this morning for monitoring on an atypical antipsychotic, and were normal. 12/13 -Continue aripiprazole 7.5 mg daily and Depakote. It appears that the dose of Depakote was incorrectly reported on admission as 750 mg daily at bedtime, as his outpatient records indicate he was on 1250 mg daily. Will increase the dose for tonight, and can check a level in 5 days (12/18/2016). -Continue to hold Wellbutrin, due to risk of destabilizing mood if it is resumed without adequate mood stabilizing medication. -Continue to encourage the patient to participate in treatment. 12/14 -Schedule family meeting with parents. -Consider need for 303 commitment. Today is the first day he has eaten more than one meal, been out of bed, or participated in groups and programming. 12/15 -File for 303 with hearing tomorrow. -Consider increasing Abilify to 10g daily. 12/16 -303 granted, increase Abilify 12/17 - remains disorganized. abilify increased to 10mg today. tolerating well. - VPA level tomorrow 12/18 - Depakote level 137 which is a little high, however he is not symptomatic or demonstrate side effects from the Depakote and I would not immediately reduce his dose used on his level given need for acute mood stabilization. Should he become symptomatic or once adequate mood stabilization has been achieved and maintained, would then consider reduction - As he is describing some emotional blunting, may consider soon restarting a very gentle dose of Wellbutrin for some activation but will defer this to the primary team 12/19 - Continue current depakote and abilify dosing - Will need meeting with parents to discuss not living at home. 12/22 - Family meeting tomorrow 12/23 - Increase Abilify to 12.5 mg. daily - family meeting this afternoon. 12/24 -Increased Abilify to 15mg daily to address mood stabilization and psychosis (2) Noncompliance with medications Care coordinated with Dr. Duenas. Consider the need for long-acting injectable antipsychotic, as the patient has decompensated in been hospitalized at least twice now due to going off of his medications. 12/19 - Consider JOSHI Discharge / Aftercare Planning Primary Care Physician: Name: Says father had served as PCP, could use [facility] Psychiatrist: Name: Dr. Duenas Therapist: Name: saw Brandon Álvarez in the past Visit Code E&M Code: 19029 Risk Factors Assessment Male: Yes : Yes /single/: Yes Health problems: No Mental Health Diagnoses: Yes Substance use disorders: No Previous attempt: Yes Family history of suicide: No Previous psychiatric stay: Yes Hopelessness: No Smoker: No Protective Factors Assessment Synagogue beliefs: Yes : No Responsible for young children: No Employed: No Stable relationships: No Supportive family: Yes Data Vital Signs Last 24 Hrs: Date Time Temp Pulse Resp B/P Pulse Ox O2 Delivery O2 Flow Rate FiO2 12/24/16 06:55 36.4 62 16 86/48 64 105/68 Meds Administered Last 24 Hrs: Meds Administered (Past 24Hrs) Medications (Trade) Dose Ordered Sig/Olena Route Start Time Stop Time Status Last Admin Dose Admin Aripiprazole (Abilify Tab) 12.5 mg QAM PO 12/24/16 09:00 12/24/16 12:12 DC 12/24/16 08:51 12.5 MG Problem Qualifiers (1) Bipolar disorder: Current bipolar episode type: mixed Current episode severity: severe Psychotic features: with psychotic features
[2016-12-24] MEDS: DIVALPROEX SODIUM 250 MG DELAY REL TAB PO SCH (21:49)
[2016-12-25 06:48] VITALS: BP_SYST 109; BP_SYST 115; BP_DIAS 65; BP_DIAS 74; PULSE 65; PULSE 69; TEMP 36.4
[2016-12-25] MEDS: ARIPIprazole TAB 15 MG TAB PO SCH (09:27)
--- NOTE | 2016-12-25 13:37 | Psychiatric Progress Notes ---
Progress Note Date of Service Dec 25, 2016. Interval History Javid Garcia is a 21-year-old male with a history of bipolar disorder, who initially presented to the emergency room with his father due to concerns about poorly controlled mood symptoms and inability to function. He had taken himself off of medications one to 2 months ago for unknown reasons. He was admitted voluntarily, but immediately submitted a 72 hour notice requesting to withdraw from treatment, subsequently on 303. Chief Complaint "Good". Subjective Patient was seen & assessed interval progress reviewed with Treatment Team. Patient reports that he has been tolerating medications well overall. Reports that his mood is good overall. He has been attending activity related groups but avoiding groups involving interaction and isolating in his room. Denies any thoughts to harm himself or others. Denies any auditory or visual hallucinations or paranoia. Had a visit with parents and brother that he reports went well. Review of Systems Constitutional: No chills, No fatigue, No fever, No problem reported, No sweats , No weakness, No weight loss ENT: No dental problems, No hearing loss, No nasal symptoms, No problem reported, No sore throat, No tinnitus, No trouble swallowing, No unusual epistaxis Respiratory: No cough, No dyspnea at rest, No dyspnea on exertion, No hemoptysis, No problem reported, No shortness of breath, No sputum, No wheezing Cardiovascular: No PND, No chest pain, No claudication, No edema, No orthopnea , No palpitations, No problem reported Abdomen: No GI bleeding, No constipation, No diarrhea, No nausea, No pain, No problem reported, No vomiting Musculoskeletal: No calf pain, No joint pain, No muscle pain, No problem reported, No swelling Neurologic: No balance problems, No memory loss, No numbness/tingling, No paralysis, No problem reported, No vertigo, No weakness Integumentary: No bleeding, No color change, No itch, No new/changing skin lesions, No problem reported, No rash Sleep Information Total Hours of Sleep: 5.50 Meal Information Percent of Breakfast Consumed: 100 Percent of Lunch Consumed: 100 Percent of Dinner Consumed: 100 Mental Status Exam During interview pt is: alert and oriented, guarded Appearance: disheveled Eye contact is: poor Motor behavior is: steady gait & station, no abnormal motor movements Speech: normal in rate, rhythm & volume Affect: depressed, flat, other (incongruent with stated mood) Mood is: other ("stable") Thought process: goal directed (but withholding/evasive) Thought content: other (denies overt psychosis, but avoidant, refusing to engage in reasonable ways. ) Suicidal thought are: present (says that since he has no future plans he might as well kill himself after discharge) Homicidal thoughts are: denied Hallucinations: denies auditory, denies visual Cognition: language grossly intact, other (memory and attention are impaired) Intelligence estimated to be: consistent with level of education Insight: severely impaired Judgement: severely impaired Summary of Past History Records from Dr. Duenas were reviewed by Dr. Camilo. At his 09/08/2016 appointment, the patient reported that he felt good during the break, but more "tense" and returning to class. 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 His mother was present for part of the appointment. He was continued on Wellbutrin XL 450 mg daily, Depakote ER 1250 mg, and Abilify 10 mg every morning. The most recent progress note is from 08/2017, at which time the patient reported improved mood since winter, a good trip to the [facility], and intense workload for the spring. He was less concerned about his major. His mother was present for part of the assessment, and no medication changes were made. The patient's mother called him on 11/03/2016, indicating that the patient was acting more manic, called her 5 times a day, was expressing a lot of ideas. His Wellbutrin XL was decreased to 300 mg daily. Medication Trials (1) past psych meds Dr. Duenas was prescribing: Abilify 10 mg every morning Depakote ER 1250 mg daily Wellbutrin XL 450 mg every morning Last Edited By: Juliana Camilo on Dec 13, 2016 12:00 Impression The patient remains oppositional and difficult to engage. No overt psychosis, but cannot rule out thought blocking and responding to internal stimuli, as attention is poor, and behaviors odd, schizoid. Affect flat, and motions robot- like. His ability to reason remains impaired, based on his statements that since he has no future plans, that he should kill himself. Family meeting scheduled for this afternoon to discuss plans moving forward. he remains on a 303 commitment. Depakote is therapeutic. Will increase Abilify to 12.5 mg. daily Plan (1) Bipolar disorder -Resume home dose of Depakote 750 mg daily at bedtime, and check a trough level after 5 days (12/16/2016). -Resume aripiprazole, starting at lower dose of 2.5 mg today, and increasing to 5 mg every morning tomorrow. Titrate up to effective dose. -Hold bupropion due to risk of destabilizing mood, as has not been taking his mood stabilizer. -Fasting lipid profile and glucose ordered for monitoring on an atypical antipsychotic for tomorrow morning. -Haldol 5 mg by mouth or IM as needed for psychosis. -Request records from Dr. Duenas. So far, the patient is refusing to sign any releases. -Get collateral information from parents. Presently, he is refusing to sign a release or schedule a family meeting. -He is here on a voluntary basis, but has submitted a 72 hour notice requesting to withdraw from treatment. We'll consider the need for a 302 involuntary commitment. -Encourage participation in unit groups and programming once he is able to tolerate it. -Once he is improved, will need to work on healthy coping skills and her discharge safety plan. 12/11 -Refusing all medications and most meals. -Pursue 302 involuntary commitment, and consider medications over objection. -Fasting labs have been postponed until tomorrow. -The patient's father called in, but patient refused to speak with him or to sign a release of information so that staff could speak with family. -Will attempt to contact Dr. Duenas tomorrow. 12/12 -Spoke with Dr. Duenas to coordinate care. He confirms bipolar type I diagnosis, and agrees that psychosis appears to be complicating the clinical picture. He also confirms that at baseline, patient is very close with his family, and current presentation is not normal for him. Reviewed medication plan, and he was in agreement. -Continue aripiprazole and Depakote. Will increase aripiprazole to 7.5 mg daily for tomorrow. -Fasting labs were performed this morning for monitoring on an atypical antipsychotic, and were normal. 12/13 -Continue aripiprazole 7.5 mg daily and Depakote. It appears that the dose of Depakote was incorrectly reported on admission as 750 mg daily at bedtime, as his outpatient records indicate he was on 1250 mg daily. Will increase the dose for tonight, and can check a level in 5 days (12/18/2016). -Continue to hold Wellbutrin, due to risk of destabilizing mood if it is resumed without adequate mood stabilizing medication. -Continue to encourage the patient to participate in treatment. 12/14 -Schedule family meeting with parents. -Consider need for 303 commitment. Today is the first day he has eaten more than one meal, been out of bed, or participated in groups and programming. 12/15 -File for 303 with hearing tomorrow. -Consider increasing Abilify to 10g daily. 12/16 -303 granted, increase Abilify 12/17 - remains disorganized. abilify increased to 10mg today. tolerating well. - VPA level tomorrow 12/18 - Depakote level 137 which is a little high, however he is not symptomatic or demonstrate side effects from the Depakote and I would not immediately reduce his dose used on his level given need for acute mood stabilization. Should he become symptomatic or once adequate mood stabilization has been achieved and maintained, would then consider reduction - As he is describing some emotional blunting, may consider soon restarting a very gentle dose of Wellbutrin for some activation but will defer this to the primary team 12/19 - Continue current depakote and abilify dosing - Will need meeting with parents to discuss not living at home. 12/22 - Family meeting tomorrow 12/23 - Increase Abilify to 12.5 mg. daily - family meeting this afternoon. 12/24 -Increased Abilify to 15mg daily to address mood stabilization and psychosis (2) Noncompliance with medications Care coordinated with Dr. Duenas. Consider the need for long-acting injectable antipsychotic, as the patient has decompensated in been hospitalized at least twice now due to going off of his medications. 12/19 - Consider JOSHI Discharge / Aftercare Planning Primary Care Physician: Name: Says father had served as PCP, could use [facility] Psychiatrist: Name: Dr. Duenas Therapist: Name: saw Brandon Álvarez in the past Visit Code E&M Code: 42055 Risk Factors Assessment Male: Yes : Yes /single/: Yes Health problems: No Mental Health Diagnoses: Yes Substance use disorders: No Previous attempt: Yes Family history of suicide: No Previous psychiatric stay: Yes Hopelessness: No Smoker: No Protective Factors Assessment L[employer] beliefs: Yes : No Responsible for young children: No Employed: No Stable relationships: No Supportive family: Yes Data Vital Signs Last 24 Hrs: Date Time Temp Pulse Resp B/P Pulse Ox O2 Delivery O2 Flow Rate FiO2 12/25/16 06:48 36.4 65 16 109/65 69 115/74 Meds Administered Last 24 Hrs: Meds Administered (Past 24Hrs) Medications (Trade) Dose Ordered Sig/Olena Route Start Time Stop Time Status Last Admin Dose Admin Aripiprazole (Abilify Tab) 12.5 mg QAM PO 12/24/16 09:00 12/24/16 12:12 DC 12/24/16 08:51 12.5 MG Aripiprazole (Abilify Tab) 15 mg QAM PO 12/25/16 09:00 01/24/17 08:59 12/25/16 09:27 15 MG Problem Qualifiers (1) Bipolar disorder: Current bipolar episode type: mixed Current episode severity: severe Psychotic features: with psychotic features
[2016-12-25] MEDS: DIVALPROEX SODIUM 250 MG DELAY REL TAB PO SCH (21:03)
[2016-12-26 07:05] VITALS: BP_SYST 101; BP_SYST 113; BP_DIAS 57; BP_DIAS 66; PULSE 60; PULSE 81; TEMP 36.4
[2016-12-26] MEDS: ARIPIprazole TAB 15 MG TAB PO SCH (08:58)
--- NOTE | 2016-12-26 10:45 | Psychiatric Progress Notes ---
Progress Note Date of Service Dec 26, 2016. Interval History Javid Garcia is a 21-year-old male with a history of bipolar disorder, who initially presented to the emergency room with his father due to concerns about poorly controlled mood symptoms and inability to function. He had taken himself off of medications one to 2 months ago for unknown reasons. He was admitted voluntarily, but immediately submitted a 72 hour notice requesting to withdraw from treatment, subsequently on 303. Chief Complaint "No". Subjective Patient was seen & assessed interval progress reviewed with Treatment Team. Staff report he remains guarded and aloof at times, has been going to groups, and at times appears more manic, laughing and dancing with peers while playing Wii. His family visited over the weekend. He made comments 12/24 that he would kill himself if discharged. At times he attends groups but has little interaction with blunted affect and poor insight. Today he left group and returned to his room and got into bed. When this physician attempted to meet with him, he refused to get out of bed to come to the interview room, saying "no ," then saying "I can answer questions, but you won't like it." He later told staff he was ready to meet, and was then more responsive and appropriate. He said his mood is "more stable," and thinks his medications are helping. He thinks he is having side effects because he gets tired during the day, but says it only lasts a few minutes. He denies SI, HI, and AVH. When asked about the suicidal statements he's made over the past few days, he says "I feel bad about that. It was just passive, not really suicidal." He says he doesn't want to do anything to hurt himself, but was thinking that he would " alone" and that is "different from suicide, that's more active." He often says "I don't know" when asked open ended questions, and has to be encouraged to give more information. He at times asks for me to give him the answers, "can't you tell me ?" even though he is being asked about his thoughts. He denies paranoia and no delusions are voices. When asked why he thinks he is feeling better, he says "I don't know, but everything's changed." He is unsure what he will do at discharge , saying "I'm not sure what I'm supposed to do." He has no idea where he will stay, or what his options are. He doesn't think he can return home, saying "my parents would be really offended and against that," but cannot explain what he means by that. Sleep Information Total Hours of Sleep: 5.50 Meal Information Percent of Breakfast Consumed: 100 Percent of Lunch Consumed: 100 Percent of Dinner Consumed: 100 Mental Status Exam During interview pt is: alert and oriented, guarded Appearance: disheveled Eye contact is: poor Motor behavior is: steady gait & station, no abnormal motor movements Speech: normal in rate, rhythm & volume Affect: labile (initially angry and oppositional, then brighter), other ( incongruent with stated mood) Mood is: other ("good") Thought process: goal directed (but withholding/evasive, refuses to clarify when asked, gives vague answers) Thought content: other (denies overt psychosis, but avoidant, refusing to engage ) Suicidal thought are: present (says that since he has no future plans he might as well kill himself after discharge) Homicidal thoughts are: denied Hallucinations: denies auditory, denies visual Cognition: language grossly intact, other (memory and attention are impaired) Intelligence estimated to be: consistent with level of education Insight: severely impaired Judgement: severely impaired Summary of Past History Records from Dr. Duenas were reviewed by Dr. Camilo. At his 09/08/2016 appointment, the patient reported that he felt good during the break, but more "tense" and returning to class. 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 His mother was present for part of the appointment. He was continued on Wellbutrin XL 450 mg daily, Depakote ER 1250 mg, and Abilify 10 mg every morning. The most recent progress note is from 08/2017, at which time the patient reported improved mood since winter break, a good trip to the [place], and intense workload for the spring. He was less concerned about his major. His mother was present for part of the assessment, and no medication changes were made. The patient's mother called him on 11/03/2016, indicating that the patient was acting more manic, called her 5 times a day, was expressing a lot of ideas. His Wellbutrin XL was decreased to 300 mg daily. Medication Trials (1) past psych meds Dr. Duenas was prescribing: Abilify 10 mg every morning Depakote ER 1250 mg daily Wellbutrin XL 450 mg every morning Last Edited By: Juliana Camilo on Dec 13, 2016 12:00 Impression The patient remains oppositional and difficult to engage. No overt psychosis, but cannot rule out thought blocking and responding to internal stimuli, as attention is poor, and behaviors odd, schizoid. Affect flat, and motions robot- like. His ability to reason remains impaired, based on his statements that since he has no future plans, that he should kill himself. He remains on a 303 commitment. Depakote is therapeutic, and Abilify has been increased to 15 mg. daily Plan (1) Bipolar disorder -Resume home dose of Depakote 750 mg daily at bedtime, and check a trough level after 5 days (12/16/2016). -Resume aripiprazole, starting at lower dose of 2.5 mg today, and increasing to 5 mg every morning tomorrow. Titrate up to effective dose. -Hold bupropion due to risk of destabilizing mood, as has not been taking his mood stabilizer. -Fasting lipid profile and glucose ordered for monitoring on an atypical antipsychotic for tomorrow morning. -Haldol 5 mg by mouth or IM as needed for psychosis. -Request records from Dr. Duenas. So far, the patient is refusing to sign any releases. -Get collateral information from parents. Presently, he is refusing to sign a release or schedule a family meeting. -He is here on a voluntary basis, but has submitted a 72 hour notice requesting to withdraw from treatment. We'll consider the need for a 302 involuntary commitment. -Encourage participation in unit groups and programming once he is able to tolerate it. -Once he is improved, will need to work on healthy coping skills and her discharge safety plan. 12/11 -Refusing all medications and most meals. -Pursue 302 involuntary commitment, and consider medications over objection. -Fasting labs have been postponed until tomorrow. -The patient's father called in, but patient refused to speak with him or to sign a release of information so that staff could speak with family. -Will attempt to contact Dr. Duenas tomorrow. 12/12 -Spoke with Dr. Duenas to coordinate care. He confirms bipolar type I diagnosis, and agrees that psychosis appears to be complicating the clinical picture. He also confirms that at baseline, patient is very close with his family, and current presentation is not normal for him. Reviewed medication plan, and he was in agreement. -Continue aripiprazole and Depakote. Will increase aripiprazole to 7.5 mg daily for tomorrow. -Fasting labs were performed this morning for monitoring on an atypical antipsychotic, and were normal. 12/13 -Continue aripiprazole 7.5 mg daily and Depakote. It appears that the dose of Depakote was incorrectly reported on admission as 750 mg daily at bedtime, as his outpatient records indicate he was on 1250 mg daily. Will increase the dose for tonight, and can check a level in 5 days (12/18/2016). -Continue to hold Wellbutrin, due to risk of destabilizing mood if it is resumed without adequate mood stabilizing medication. -Continue to encourage the patient to participate in treatment. 12/14 -Schedule family meeting with parents. -Consider need for 303 commitment. Today is the first day he has eaten more than one meal, been out of bed, or participated in groups and programming. 12/15 -File for 303 with hearing tomorrow. -Consider increasing Abilify to 10g daily. 12/16 -303 granted, increase Abilify 12/17 - remains disorganized. abilify increased to 10mg today. tolerating well. - VPA level tomorrow 12/18 - Depakote level 137 which is a little high, however he is not symptomatic or demonstrate side effects from the Depakote and I would not immediately reduce his dose used on his level given need for acute mood stabilization. Should he become symptomatic or once adequate mood stabilization has been achieved and maintained, would then consider reduction - As he is describing some emotional blunting, may consider soon restarting a very gentle dose of Wellbutrin for some activation but will defer this to the primary team 12/19 - Continue current depakote and abilify dosing - Will need meeting with parents to discuss not living at home. 12/22 - Family meeting tomorrow 12/23 - Increase Abilify to 12.5 mg. daily - family meeting this afternoon. 12/24 -Increased Abilify to 15mg daily to address mood stabilization and psychosis 12/26 -Called patient's father at his request; had to leave message. (2) Noncompliance with medications Care coordinated with Dr. Duenas. Consider the need for long-acting injectable antipsychotic, as the patient has decompensated in been hospitalized at least twice now due to going off of his medications. 12/19 - Consider JOS[facility] Discharge / Aftercare Planning Primary Care Physician: Name: Says father had served as PCP, could use [facility] Psychiatrist: Name: Dr. Duenas Therapist: Name: dixie Álvarez in the past Visit Code E&M Code: 00854 Risk Factors Assessment Male: Yes : Yes /single/: Yes Health problems: No Mental Health Diagnoses: Yes Substance use disorders: No Previous attempt: Yes Family history of suicide: No Previous psychiatric stay: Yes Hopelessness: No Smoker: No Protective Factors Assessment Advent beliefs: Yes : No Responsible for young children: No Employed: No Stable relationships: No Supportive family: Yes Data Vital Signs Last 24 Hrs: Date Time Temp Pulse Resp B/P Pulse Ox O2 Delivery O2 Flow Rate FiO2 12/26/16 07:05 36.4 60 16 101/57 81 113/66 Meds Administered Last 24 Hrs: Meds Administered (Past 24Hrs) Medications (Trade) Dose Ordered Sig/Olena Route Start Time Stop Time Status Last Admin Dose Admin Aripiprazole (Abilify Tab) 15 mg QAM PO 12/25/16 09:00 01/24/17 08:59 12/26/16 08:58 15 MG Problem Qualifiers (1) Bipolar disorder: Current bipolar episode type: mixed Current episode severity: severe Psychotic features: with psychotic features
[2016-12-26] MEDS: DIVALPROEX SODIUM 250 MG DELAY REL TAB PO SCH (21:32)
[2016-12-27 07:01] VITALS: BP_SYST 105; BP_SYST 99; BP_DIAS 61; BP_DIAS 64; PULSE 56; PULSE 79; TEMP 36.4
[2016-12-27] MEDS: ARIPIprazole TAB 15 MG TAB PO SCH (08:56)
--- NOTE | 2016-12-27 09:43 | Psychiatric Progress Notes ---
Progress Note Date of Service Dec 27, 2016. Interval History Javid Garcia is a 21-year-old male with a history of bipolar disorder, who initially presented to the emergency room with his father due to concerns about poorly controlled mood symptoms and inability to function. He had taken himself off of medications one to 2 months ago for unknown reasons. He was admitted voluntarily, but immediately submitted a 72 hour notice requesting to withdraw from treatment, and was ultimately involuntarily committed, and is on 303 as of 12/16/16. Chief Complaint "I'm not talking to you!" Subjective Patient was seen & assessed interval progress reviewed with Treatment Team. Staff report he attended some groups, but had odd behavior, was laughing inappropriately, appear distracted, and appeared to have difficulty processing information. At one point, he abruptly left group, but returned about 10 minutes later, and stated he felt better as "I went to bed." His thoughts appear disorganized and he was guarded and aloof. He told staff he did not need to be in the hospital, and that there was nothing wrong with him. He met with a counselor last evening, stating that he wanted to discuss an idea he had for the [employer] competition, which he has been involved in in the past as well. He was able to discuss his idea in some detail. The counselor was also able to discuss his paranoia with him, and he stated he didn't really feel he was paranoid, and instead felt that people had "futile goals" to work at jobs and buy things they don't really need. He talked about feeling that people in power were manipulating everyone, not just him. His discussion did not appear psychotic. He did make some odd statements, for example asking "what colors do you see when you close your eyes?" He stated that he had talked to his parents during visiting hours about his discharge plans, but would not share them with the counselor. He went to most evening groups, and spend free time with peers and in the group room doing yoga. This morning, attempted to see the patient multiple times in the group room. He was agitated and uncooperative, turned up the radio he was listening to as loud as it would go, and said "I can't hear you." Tried multiple times to engage him in discussion, and when attempted to turn the radio down, the patient grabbed the radio and held it to his chest. He refused to answer questions, stating "you just want to control me, you just want my money!" He was escalating and agitated, and not responding to attempts to verbally de-escalate, so security was called to the unit. Attempted to see him again, and he again turned up the radio as loud as it would go, refused to return the radio when requested, and again grabbed it from this physician's hands. Attempted to discuss his commitment status and discharge planning, and he refused to answer questions. Ultimately security intervened, retrieved the radio, and said the patient reported that this physician could not help him. Sleep Information Total Hours of Sleep: 6.00 Meal Information Percent of Breakfast Consumed: 100 Percent of Lunch Consumed: 100 Percent of Dinner Consumed: 100 Mental Status Exam During interview pt is: alert and oriented, uncooperative (agitated, immature and inappropriate behavior) Appearance: disheveled (malodorous) Eye contact is: other (staring) Motor behavior is: steady gait & station, no abnormal motor movements Speech: other (minimal, angry tone) Affect: labile (sits calmly by himself, but when approached by staff becomes angry and oppositional) Mood is: other (refuses to answer) Thought process: goal directed (but withholding/evasive, refuses to participate in assessment) Thought content: other (refuses to answer questions, but appears distracted. He refused to answer regarding hallucinations, suicidal thoughts, and homicidal thoughts.) Intelligence estimated to be: consistent with level of education Insight: severely impaired Judgement: severely impaired Summary of Past History Records from Dr. Duenas were reviewed by Dr. Camilo. At his 09/08/2016 appointment, the patient reported that he felt good during the break, but more "tense" and returning to class. 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 His mother was present for part of the appointment. He was continued on Wellbutrin XL 450 mg daily, Depakote ER 1250 mg, and Abilify 10 mg every morning. The most recent progress note is from 08/2017, at which time the patient reported improved mood since winter break, a good trip to the [facility], and intense workload for the spring. He was less concerned about his major. His mother was present for part of the assessment, and no medication changes were made. The patient's mother called him on 11/03/2016, indicating that the patient was acting more manic, called her 5 times a day, was expressing a lot of ideas. His Wellbutrin XL was decreased to 300 mg daily. Medication Trials (1) past psych meds Dr. Duenas was prescribing: Abilify 10 mg every morning Depakote ER 1250 mg daily Wellbutrin XL 450 mg every morning Last Edited By: Juliana Camilo on Dec 13, 2016 12:00 Impression The patient remains oppositional and difficult to engage. No overt psychosis, but cannot rule out thought blocking and responding to internal stimuli, as attention is poor, and behaviors odd, schizoid. Affect flat, and motions robot- like. His ability to reason remains impaired, as he states he does not want to be in the hospital, but refuses to engage in discharge planning. He has recently made suicidal statements, and is poorly engaged in treatment. We will need another meeting with his family to discuss options for housing after discharge, as he is not able to return to school, and parents do not want him to return home. He remains on a 303 commitment. Depakote is therapeutic, and Abilify has been increased to 15 mg. daily Plan (1) Bipolar disorder -Resume home dose of Depakote 750 mg daily at bedtime, and check a trough level after 5 days (12/16/2016). -Resume aripiprazole, starting at lower dose of 2.5 mg today, and increasing to 5 mg every morning tomorrow. Titrate up to effective dose. -Hold bupropion due to risk of destabilizing mood, as has not been taking his mood stabilizer. -Fasting lipid profile and glucose ordered for monitoring on an atypical antipsychotic for tomorrow morning. -Haldol 5 mg by mouth or IM as needed for psychosis. -Request records from Dr. Duenas. So far, the patient is refusing to sign any releases. -Get collateral information from parents. Presently, he is refusing to sign a release or schedule a family meeting. -He is here on a voluntary basis, but has submitted a 72 hour notice requesting to withdraw from treatment. We'll consider the need for a 302 involuntary commitment. -Encourage participation in unit groups and programming once he is able to tolerate it. -Once he is improved, will need to work on healthy coping skills and her discharge safety plan. 12/11 -Refusing all medications and most meals. -Pursue 302 involuntary commitment, and consider medications over objection. -Fasting labs have been postponed until tomorrow. -The patient's father called in, but patient refused to speak with him or to sign a release of information so that staff could speak with family. -Will attempt to contact Dr. Duenas tomorrow. 12/12 -Spoke with Dr. Duenas to coordinate care. He confirms bipolar type I diagnosis, and agrees that psychosis appears to be complicating the clinical picture. He also confirms that at baseline, patient is very close with his family, and current presentation is not normal for him. Reviewed medication plan, and he was in agreement. -Continue aripiprazole and Depakote. Will increase aripiprazole to 7.5 mg daily for tomorrow. -Fasting labs were performed this morning for monitoring on an atypical antipsychotic, and were normal. 12/13 -Continue aripiprazole 7.5 mg daily and Depakote. It appears that the dose of Depakote was incorrectly reported on admission as 750 mg daily at bedtime, as his outpatient records indicate he was on 1250 mg daily. Will increase the dose for tonight, and can check a level in 5 days (12/18/2016). -Continue to hold Wellbutrin, due to risk of destabilizing mood if it is resumed without adequate mood stabilizing medication. -Continue to encourage the patient to participate in treatment. 12/14 -Schedule family meeting with parents. -Consider need for 303 commitment. Today is the first day he has eaten more than one meal, been out of bed, or participated in groups and programming. 12/15 -File for 303 with hearing tomorrow. -Consider increasing Abilify to 10g daily. 12/16 -303 granted, increase Abilify 12/17 - remains disorganized. abilify increased to 10mg today. tolerating well. - VPA level tomorrow 12/18 - Depakote level 137 which is a little high, however he is not symptomatic or demonstrate side effects from the Depakote and I would not immediately reduce his dose used on his level given need for acute mood stabilization. Should he become symptomatic or once adequate mood stabilization has been achieved and maintained, would then consider reduction - As he is describing some emotional blunting, may consider soon restarting a very gentle dose of Wellbutrin for some activation but will defer this to the primary team 12/19 - Continue current depakote and abilify dosing - Will need meeting with parents to discuss not living at home. 12/22 - Family meeting tomorrow 12/23 - Increase Abilify to 12.5 mg. daily - Family meeting this afternoon. 12/24 -Increased Abilify to 15mg daily to address mood stabilization and psychosis 12/26 -Called patient's father at his request; had to leave message. -Lock the door to patient's room during group times to encourage better attendance and participation. 12/27 -Patient remains oppositional and poorly engaged. He has been able to tolerate discussions with specific staff, but is still vague and evasive about his discharge plans. Again called patient's father at both numbers listed in the chart and left messages. Social work to arrange another family meeting to discuss discharge planning. We will consider the need for a 304 commitment. -Spoke with patient's father who expressed concerns about paranoia which came out in their family meeting last week. Reviewed his recent reports and lack of clear paranoia since then. He visited yesterday and thinks the patient is more appropriate than he had been, but the family continues to be unsure what to do, as they have struggled with his mental illness for 15 years. He wondered what housing options there were for him. Reviewed lack of housing in the area. He may be able to stay in the dorms at [employer] as he is paid through January or February, and could withdraw during the last week of class, but there is no other known option. A neighbor has a cabin but it is unclear if it open or available. They have told him that they don't think his coming home is a good idea, but also don't want him to go to a homeless group home. 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 He got a good job at [employer] in the [employer] dept a few herndon ago, and did well there. Also discussed options for OP, such as a long acting injectable and more frequent appointments in the fall/winter, when he traditionally does poorly. He is not sure why he's stopped his meds, as he hasn't given reasons. (2) Noncompliance with medications Care coordinated with Dr. Duenas. Consider the need for long-acting injectable antipsychotic, as the patient has decompensated in been hospitalized at least twice now due to going off of his medications. 12/19 - Consider JOSHI Discharge / Aftercare Planning Primary Care Physician: Name: Says father had served as PCP, could use [facility] Psychiatrist: Name: Dr. Duenas Therapist: Name: saw Brandon Álvarez in the past Visit Code E&M Code: 28535 Risk Factors Assessment Male: Yes : Yes /single/: Yes Access to guns: No Health problems: No Mental Health Diagnoses: Yes Substance use disorders: No Previous attempt: Yes Family history of suicide: Yes (grandfather) Previous psychiatric stay: Yes Hopelessness: No Smoker: No Protective Factors Assessment Jew beliefs: Yes : No Responsible for young children: No Employed: No Stable relationships: No Supportive family: Yes Data Vital Signs Last 24 Hrs: Date Time Temp Pulse Resp B/P Pulse Ox O2 Delivery O2 Flow Rate FiO2 12/27/16 07:01 36.4 56 16 99/61 79 105/64 Problem Qualifiers (1) Bipolar disorder: Current bipolar episode type: mixed Current episode severity: severe Psychotic features: with psychotic features
[2016-12-27] MEDS: DIVALPROEX SODIUM 250 MG DELAY REL TAB PO SCH (21:30)
[2016-12-28 06:57] VITALS: BP_SYST 108; BP_SYST 113; BP_DIAS 64; BP_DIAS 65; PULSE 62; PULSE 85; TEMP 36.4
[2016-12-28] MEDS: ARIPIprazole TAB 15 MG TAB PO SCH (08:15)
--- NOTE | 2016-12-28 12:32 | Psychiatric Progress Notes ---
Progress Note Date of Service Dec 28, 2016. Interval History Javid Garcia is a 21-year-old male with a history of bipolar disorder, who initially presented to the emergency room with his father due to concerns about poorly controlled mood symptoms and inability to function. He had taken himself off of medications one to 2 months ago for unknown reasons. He was admitted voluntarily, but immediately submitted a 72 hour notice requesting to withdraw from treatment, and was ultimately involuntarily committed, and is on 303 as of 12/16/16. Chief Complaint "Fine". Subjective Patient was seen & assessed interval progress reviewed with Treatment Team. The patient is able to be more reasonable today and engage in discussion. He says that he has decided to follow his father's suggestion to return to the dorms, with withdraw from school close to the end of the semester. He will then proceed to reapply to school at a later date with a major that is more acceptable to him. He says that his father has asked him to repay a portion of his tuition for this semester, which he agrees to do. He continues to deny SI/ HI, aud/vis hallucinations. He appropriately turns off the radio when I enter the room, and his interaction is polite and appropriate. Review of Systems Constitutional: No chills, No fatigue, No fever, No problem reported, No sweats , No weakness, No weight loss ENT: No dental problems, No hearing loss, No nasal symptoms, No problem reported, No sore throat, No tinnitus, No trouble swallowing, No unusual epistaxis Respiratory: No cough, No dyspnea at rest, No dyspnea on exertion, No hemoptysis, No problem reported, No shortness of breath, No sputum, No wheezing Cardiovascular: No PND, No chest pain, No claudication, No edema, No orthopnea , No palpitations, No problem reported Abdomen: No GI bleeding, No constipation, No diarrhea, No nausea, No pain, No problem reported, No vomiting Musculoskeletal: No calf pain, No joint pain, No muscle pain, No problem reported, No swelling Neurologic: No balance problems, No memory loss, No numbness/tingling, No paralysis, No problem reported, No vertigo, No weakness Psychiatric: + problem reported (denies all symptoms) Integumentary: No bleeding, No color change, No itch, No new/changing skin lesions, No problem reported, No rash Sleep Information Total Hours of Sleep: 4.00 Meal Information Percent of Breakfast Consumed: 100 Percent of Lunch Consumed: 100 Percent of Dinner Consumed: 25 Mental Status Exam During interview pt is: alert and oriented, cooperative Appearance: disheveled (malodorous) Eye contact is: good Motor behavior is: steady gait & station, no abnormal motor movements Speech: normal in rate, rhythm & volume Affect: blunted Mood is: other (denies depression) Thought process: goal directed Thought content: reality based without delusions, other (refuses to answer questions, but appears distracted. He refused to answer regarding hallucinations, suicidal thoughts, and homicidal thoughts.) Suicidal thought are: denied Homicidal thoughts are: denied Hallucinations: denies auditory, denies visual Cognition: memory grossly intact, attention grossly intact, language grossly intact Intelligence estimated to be: consistent with level of education Insight: limited, severely impaired Judgement: limited, severely impaired Summary of Past History Records from Dr. Duenas were reviewed by Dr. Camilo. At his 09/08/2016 appointment, the patient reported that he felt good during the break, but more "tense" and returning to class. 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 His mother was present for part of the appointment. He was continued on Wellbutrin XL 450 mg daily, Depakote ER 1250 mg, and Abilify 10 mg every morning. The most recent progress note is from 08/2017, at which time the patient reported improved mood since winter, a good trip to the [facility], and intense workload for the spring. He was less concerned about his major. His mother was present for part of the assessment, and no medication changes were made. The patient's mother called him on 11/03/2016, indicating that the patient was acting more manic, called her 5 times a day, was expressing a lot of ideas. His Wellbutrin XL was decreased to 300 mg daily. Medication Trials (1) past psych meds Dr. Duenas was prescribing: Abilify 10 mg every morning Depakote ER 1250 mg daily Wellbutrin XL 450 mg every morning Last Edited By: Juliana Camilo on Dec 13, 2016 12:00 Impression Today the patient is willing to be more reasonable and work toward a discharge plan (see subjective). We will be in contact with his parents to inform them of likely discharge on Monday to be sure they have no objections. With this plan in mind, we will not be in need of the 304 but would like social work to be in contact with parents today to relay plan for if they have objections to the discharge plan we could still pursue a 304 if needed. Plan (1) Bipolar disorder -Resume home dose of Depakote 750 mg daily at bedtime, and check a trough level after 5 days (12/16/2016). -Resume aripiprazole, starting at lower dose of 2.5 mg today, and increasing to 5 mg every morning tomorrow. Titrate up to effective dose. -Hold bupropion due to risk of destabilizing mood, as has not been taking his mood stabilizer. -Fasting lipid profile and glucose ordered for monitoring on an atypical antipsychotic for tomorrow morning. -Haldol 5 mg by mouth or IM as needed for psychosis. -Request records from Dr. Duenas. So far, the patient is refusing to sign any releases. -Get collateral information from parents. Presently, he is refusing to sign a release or schedule a family meeting. -He is here on a voluntary basis, but has submitted a 72 hour notice requesting to withdraw from treatment. We'll consider the need for a 302 involuntary commitment. -Encourage participation in unit groups and programming once he is able to tolerate it. -Once he is improved, will need to work on healthy coping skills and her discharge safety plan. 12/11 -Refusing all medications and most meals. -Pursue 302 involuntary commitment, and consider medications over objection. -Fasting labs have been postponed until tomorrow. -The patient's father called in, but patient refused to speak with him or to sign a release of information so that staff could speak with family. -Will attempt to contact Dr. Deunas tomorrow. 12/12 -Spoke with Dr. Duenas to coordinate care. He confirms bipolar type I diagnosis, and agrees that psychosis appears to be complicating the clinical picture. He also confirms that at baseline, patient is very close with his family, and current presentation is not normal for him. Reviewed medication plan, and he was in agreement. -Continue aripiprazole and Depakote. Will increase aripiprazole to 7.5 mg daily for tomorrow. -Fasting labs were performed this morning for monitoring on an atypical antipsychotic, and were normal. 12/13 -Continue aripiprazole 7.5 mg daily and Depakote. It appears that the dose of Depakote was incorrectly reported on admission as 750 mg daily at bedtime, as his outpatient records indicate he was on 1250 mg daily. Will increase the dose for tonight, and can check a level in 5 days (12/18/2016). -Continue to hold Wellbutrin, due to risk of destabilizing mood if it is resumed without adequate mood stabilizing medication. -Continue to encourage the patient to participate in treatment. 12/14 -Schedule family meeting with parents. -Consider need for 303 commitment. Today is the first day he has eaten more than one meal, been out of bed, or participated in groups and programming. 12/15 -File for 303 with hearing tomorrow. -Consider increasing Abilify to 10g daily. 12/16 -303 granted, increase Abilify 12/17 - remains disorganized. abilify increased to 10mg today. tolerating well. - VPA level tomorrow 12/18 - Depakote level 137 which is a little high, however he is not symptomatic or demonstrate side effects from the Depakote and I would not immediately reduce his dose used on his level given need for acute mood stabilization. Should he become symptomatic or once adequate mood stabilization has been achieved and maintained, would then consider reduction - As he is describing some emotional blunting, may consider soon restarting a very gentle dose of Wellbutrin for some activation but will defer this to the primary team 12/19 - Continue current depakote and abilify dosing - Will need meeting with parents to discuss not living at home. 12/22 - Family meeting tomorrow 12/23 - Increase Abilify to 12.5 mg. daily - Family meeting this afternoon. 12/24 -Increased Abilify to 15mg daily to address mood stabilization and psychosis 12/26 -Called patient's father at his request; had to leave message. -Lock the door to patient's room during group times to encourage better attendance and participation. 12/27 -Patient remains oppositional and poorly engaged. He has been able to tolerate discussions with specific staff, but is still vague and evasive about his discharge plans. Again called patient's father at both numbers listed in the chart and left messages. Social work to arrange another family meeting to discuss discharge planning. We will consider the need for a 304 commitment. -Spoke with patient's father who expressed concerns about paranoia which came out in their family meeting last week. Reviewed his recent reports and lack of clear paranoia since then. He visited yesterday and thinks the patient is more appropriate than he had been, but the family continues to be unsure what to do, as they have struggled with his mental illness for 15 years. He wondered what housing options there were for him. Reviewed lack of housing in the area. He may be able to stay in the dorms at [employer] as he is paid through January or February, and could withdraw during the last week of class, but there is no other known option. A neighbor has a cabin but it is unclear if it open or available. They have told him that they don't think his coming home is a good idea, but also don't want him to go to a homeless skilled nursing. 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 Also discussed options for OP, such as a long acting injectable and more frequent appointments in the fall/winter, when he traditionally does poorly. He is not sure why he's stopped his meds, as he hasn't given reasons. 12/28 - Being more reasonable and engaging if discharge planning. Will need to inform parents of patient's plan to be sure they support and if so, could discharge as soon as Monday. (2) Noncompliance with medications Care coordinated with Dr. Duenas. Consider the need for long-acting injectable antipsychotic, as the patient has decompensated in been hospitalized at least twice now due to going off of his medications. 12/19 - Consider JOS[facility] Discharge / Aftercare Planning Primary Care Physician: Name: Says father had served as PCP, could use [facility] Psychiatrist: Name: Dr. Duenas Therapist: Name: saw Brandon Álvarez in the past Visit Code E&M Code: 69535 Risk Factors Assessment Male: Yes : Yes /single/: Yes Access to guns: No Health problems: No Mental Health Diagnoses: Yes Substance use disorders: No Previous attempt: Yes Family history of suicide: Yes (grandfather) Previous psychiatric stay: Yes Hopelessness: No Smoker: No Protective Factors Assessment Hinduism beliefs: Yes : No Responsible for young children: No Employed: No Stable relationships: No Supportive family: Yes Data Vital Signs Last 24 Hrs: Date Time Temp Pulse Resp B/P Pulse Ox O2 Delivery O2 Flow Rate FiO2 12/28/16 06:57 36.4 62 16 108/64 85 113/65 Meds Administered Last 24 Hrs: Current Inpatient Medications Medications (Trade) Dose Ordered Sig/Olena Route Start Time Stop Time Status Last Admin Dose Admin Acetaminophen (Tylenol Tab) 650 mg Q4H PRN PO 12/10/16 01:45 01/09/17 01:44 Al Hydroxide/Mg Hydroxide (Maalox Susp) 30 ml Q4H PRN PO 12/10/16 01:45 01/09/17 01:44 Bismuth Subsalicylate (Kaopectate Liqd) 15 ml DAILY PRN PO 12/10/16 01:45 01/09/17 01:44 Magnesium Hydroxide (Milk Of Magnesia Susp) 30 ml DAILY PRN PO 12/10/16 01:45 01/09/17 01:44 Sodium Chloride ([place] Nasal [place]) PRN PRN NA 12/10/16 01:45 01/09/17 01:44 Hydroxyzine HCl (Vistaril Tab) 50 mg HSZ PRN PO 12/10/16 01:45 01/09/17 01:44 Hydroxyzine HCl (Vistaril Tab) 25 mg Q4H PRN PO 12/10/16 01:45 01/09/17 01:44 Haloperidol Lactate (Haldol Inj) 5 mg Q4 PRN IM 12/10/16 11:00 01/09/17 10:59 Haloperidol (Haldol Tab) 5 mg Q4H PRN PO 12/10/16 11:00 01/09/17 10:59 Divalproex Sodium (Depakote Delay Rel Tab) 1,250 mg HS PO 12/13/16 22:00 01/12/17 21:59 12/27/16 21:30 1,250 MG Aripiprazole (Abilify Tab) 15 mg QAM PO 12/25/16 09:00 01/24/17 08:59 12/28/16 08:15 15 MG Lab Results Last 24 Hrs: 12/09/16 22:25 Red Blood Count 5.94, Mean Corpuscular Volume 80.8, Mean Corpuscular Hemoglobin 28.6, Mean Corpuscular Hemoglobin Concent 35.4, Mean Platelet Volume 10.6, Neutrophils (%) (Auto) 52.3, Lymphocytes (%) (Auto) 35.5, Monocytes (%) (Auto) 10.0, Eosinophils (%) (Auto) 1.5, Basophils (%) (Auto) 0.5, Neutrophils # (Auto ) 3.08, Lymphocytes # (Auto) 2.09, Monocytes # (Auto) 0.59, Eosinophils # (Auto ) 0.09, Basophils # (Auto) 0.03 12/09/16 22:25 Test 12/09/16 22:15 12/09/16 22:25 12/09/16 22:28 12/12/16 08:07 Urine Color YELLOW Urine Appearance CLEAR (CLEAR) Urine pH 7.0 (4.5-7.5) Urine Specific [place] 1.021 (1.000-1.030) Urine Protein NEG (NEG) Urine Glucose (UA) NEG (NEG) Urine Ketones NEG (NEG) Urine Occult Blood NEG (NEG) Urine Nitrite NEG (NEG) Urine Bilirubin NEG (NEG) Urine Urobilinogen NEG (NEG) Urine Leukocyte Esterase NEG (NEG) Urine Opiates Screen NEG (NEG) Urine Methadone, Qualitative NEG (NEG) Urine Barbiturates NEG (NEG) Urine Phencyclidine (PCP) Level NEG (NEG) Ur Amphetamine/Methamphetamine NEG (NEG) MDMA (Ecstasy) Screen NEG (NEG) Urine Benzodiazepines Screen NEG (NEG) Urine Cocaine Metabolite NEG (NEG) Urine Marijuana (THC) NEG (NEG) White Blood Count 5.89 K/uL (4.8-10.8) Red Blood Count 5.94 M/uL (4.7-6.1) Hemoglobin 17.0 g/dL (14.0-18.0) Hematocrit 48.0 % (42-52) Mean Corpuscular Volume 80.8 fL (80-100) Mean Corpuscular Hemoglobin 28.6 pg (25-34) Mean Corpuscular Hemoglobin Concent 35.4 g/dl (32-36) Platelet Count 260 K/uL (130-400) Mean Platelet Volume 10.6 fL (7.4-10.4) Neutrophils (%) (Auto) 52.3 % Lymphocytes (%) (Auto) 35.5 % Monocytes (%) (Auto) 10.0 % Eosinophils (%) (Auto) 1.5 % Basophils (%) (Auto) 0.5 % Neutrophils # (Auto) 3.08 K/uL (1.4-6.5) Lymphocytes # (Auto) 2.09 K/uL (1.2-3.4) Monocytes # (Auto) 0.59 K/uL (0.11-0.59) Eosinophils # (Auto) 0.09 K/uL (0-0.5) Basophils # (Auto) 0.03 K/uL (0-0.2) RDW Standard Deviation 38.9 fL (36.4-46.3) RDW Coefficient of Variation 13.1 % (11.5-14.5) Immature Granulocyte % (Auto) 0.2 % Immature Granulocyte # (Auto) 0.01 K/uL (0.00-0.02) Anion Gap 9.0 mmol/L (3-11) Est Creatinine Clear Calc Drug Dose 149.8 ml/min Estimated GFR () 148.8 Estimated GFR (Non- 128.4 BUN/Creatinine Ratio 8.0 (10-20) Calcium Level 8.8 mg/dl (8.5-10.1) Total Bilirubin 0.3 mg/dl (0.2-1) Direct Bilirubin < 0.1 mg/dl (0-0.2) Aspartate Amino Transf (AST/SGOT) 21 U/L (15-37) Alanine Aminotransferase (ALT/SGPT) 23 U/L (12-78) Alkaline Phosphatase 49 U/L (45-117) Total Protein 6.9 gm/dl (6.4-8.2) Albumin 4.2 gm/dl (3.4-5.0) Globulin 2.7 gm/dl (2.5-4.0) Albumin/Globulin Ratio 1.6 (0.9-2) Thyroid Stimulating Hormone (TSH) 1.240 uIu/ml (0.300-4.500) Ethyl Alcohol mg/dL < 3.0 mg/dl (0-3) Vitamin D 1,25-Dihydroxy Total 43 pg/mL (18-72) 1,25 Dihydroxy Vitamin D2 <8 pg/mL 1,25 Dihydroxy Vitamin D3 43 pg/mL Fasting Glucose 87 mg/dl (70-99) Triglycerides Level 92 mg/dl (0-150) Cholesterol Level 126 mg/dl (0-200) HDL Cholesterol 57 mg/dl LDL Cholesterol, Calculated 51 mg/dl VLDL Cholesterol, Calculated 18 mg/dl Cholesterol/HDL Ratio 2.2 Test 12/18/16 08:45 Valproic Acid (Depakene) Level 137 mcg/ml (50-100) Problem Qualifiers (1) Bipolar disorder: Current bipolar episode type: mixed Current episode severity: severe Psychotic features: with psychotic features
[2016-12-28] MEDS: DIVALPROEX SODIUM 250 MG DELAY REL TAB PO SCH (21:15)
[2016-12-29 06:44] VITALS: BP_SYST 100; BP_SYST 103; BP_DIAS 59; BP_DIAS 64; PULSE 70; PULSE 90; TEMP 36.5
[2016-12-29] MEDS: ARIPIprazole TAB 15 MG TAB PO SCH (07:20)
--- NOTE | 2016-12-29 10:01 | Psychiatric Progress Notes ---
Progress Note Date of Service Dec 29, 2016. Interval History Javid Garcia is a 21-year-old male with a history of bipolar disorder, who initially presented to the emergency room with his father due to concerns about poorly controlled mood symptoms and inability to function. He had taken himself off of medications one to 2 months ago for unknown reasons. He was admitted voluntarily, but immediately submitted a 72 hour notice requesting to withdraw from treatment, and was ultimately involuntarily committed, and is on 303 as of 12/16/16. Chief Complaint "OK". Subjective Patient was seen & assessed interval progress reviewed with Treatment Team. Taz says that he is the same, with no change: denies SI/HI, aud/vis hallucinations. We discuss likely discharge tomorrow which he is favor of. His plan remains to return to his dorm room, but he does not want to get a job. 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 He asked if I had any suggestions and when I suggested he look for a short term job in the [facility] area, he simply says that he doesn' t want to do that, "I don't want to work for a company.". he does not know what he will do at the end of the semester in terms of housing or a job either. He is polite, but dimissive of the discussion, unwilling to discuss or consider options to structure his time after discharge. Review of Systems Constitutional: No chills, No fatigue, No fever, No problem reported, No sweats , No weakness, No weight loss ENT: No dental problems, No hearing loss, No nasal symptoms, No problem reported, No sore throat, No tinnitus, No trouble swallowing, No unusual epistaxis Respiratory: No cough, No dyspnea at rest, No dyspnea on exertion, No hemoptysis, No problem reported, No shortness of breath, No sputum, No wheezing Cardiovascular: No PND, No chest pain, No claudication, No edema, No orthopnea , No palpitations, No problem reported Abdomen: No GI bleeding, No constipation, No diarrhea, No nausea, No pain, No problem reported, No vomiting Musculoskeletal: No calf pain, No joint pain, No muscle pain, No problem reported, No swelling Neurologic: No balance problems, No memory loss, No numbness/tingling, No paralysis, No problem reported, No vertigo, No weakness Psychiatric: + problem reported (denies) Integumentary: No bleeding, No color change, No itch, No new/changing skin lesions, No problem reported, No rash Sleep Information Total Hours of Sleep: 6.50 Meal Information Percent of Breakfast Consumed: 100 Percent of Lunch Consumed: 100 Percent of Dinner Consumed: 100 Mental Status Exam During interview pt is: alert and oriented, cooperative Appearance: disheveled (malodorous) Eye contact is: good Motor behavior is: steady gait & station, no abnormal motor movements Speech: normal in rate, rhythm & volume Affect: flat Mood is: other (denies depression) Thought process: goal directed Thought content: reality based without delusions, other (refuses to answer questions, but appears distracted. He refused to answer regarding hallucinations, suicidal thoughts, and homicidal thoughts.) Suicidal thought are: denied Homicidal thoughts are: denied Hallucinations: denies auditory, denies visual Cognition: memory grossly intact, attention grossly intact, language grossly intact Intelligence estimated to be: consistent with level of education Insight: limited, severely impaired Judgement: limited, severely impaired Summary of Past History Records from Dr. Duenas were reviewed by Dr. Camilo. At his 09/08/2016 appointment, the patient reported that he felt good during the break, but more "tense" and returning to class. 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 His mother was present for part of the appointment. He was continued on Wellbutrin XL 450 mg daily, Depakote ER 1250 mg, and Abilify 10 mg every morning. The most recent progress note is from 08/2017, at which time the patient reported improved mood since winter break, a good trip to the [place], and intense workload for the spring. He was less concerned about his major. His mother was present for part of the assessment, and no medication changes were made. The patient's mother called him on 11/03/2016, indicating that the patient was acting more manic, called her 5 times a day, was expressing a lot of ideas. His Wellbutrin XL was decreased to 300 mg daily. Medication Trials (1) past psych meds Dr. Duenas was prescribing: Abilify 10 mg every morning Depakote ER 1250 mg daily Wellbutrin XL 450 mg every morning Last Edited By: Juliana Camilo on Dec 13, 2016 12:00 Impression Cooperative for the most part again today. Still wants to consider DC tomorrow , and parents have been informed. There is a family meeting scheduled tomorrow as well. His plans for post discharge represent are at best, minimal structure that will provide for housing, but he continues to be unwilling to work toward a job or other structure during the day. Ideally I would see him attend Psych Rehab or a partial, of which there are none in this area. He will return to see Dr. Duenas and therapist Brandon Connelly Plan (1) Bipolar disorder -Resume home dose of Depakote 750 mg daily at bedtime, and check a trough level after 5 days (12/16/2016). -Resume aripiprazole, starting at lower dose of 2.5 mg today, and increasing to 5 mg every morning tomorrow. Titrate up to effective dose. -Hold bupropion due to risk of destabilizing mood, as has not been taking his mood stabilizer. -Fasting lipid profile and glucose ordered for monitoring on an atypical antipsychotic for tomorrow morning. -Haldol 5 mg by mouth or IM as needed for psychosis. -Request records from Dr. Duenas. So far, the patient is refusing to sign any releases. -Get collateral information from parents. Presently, he is refusing to sign a release or schedule a family meeting. -He is here on a voluntary basis, but has submitted a 72 hour notice requesting to withdraw from treatment. We'll consider the need for a 302 involuntary commitment. -Encourage participation in unit groups and programming once he is able to tolerate it. -Once he is improved, will need to work on healthy coping skills and her discharge safety plan. 12/11 -Refusing all medications and most meals. -Pursue 302 involuntary commitment, and consider medications over objection. -Fasting labs have been postponed until tomorrow. -The patient's father called in, but patient refused to speak with him or to sign a release of information so that staff could speak with family. -Will attempt to contact Dr. Duenas tomorrow. 12/12 -Spoke with Dr. Duenas to coordinate care. He confirms bipolar type I diagnosis, and agrees that psychosis appears to be complicating the clinical picture. He also confirms that at baseline, patient is very close with his family, and current presentation is not normal for him. Reviewed medication plan, and he was in agreement. -Continue aripiprazole and Depakote. Will increase aripiprazole to 7.5 mg daily for tomorrow. -Fasting labs were performed this morning for monitoring on an atypical antipsychotic, and were normal. 12/13 -Continue aripiprazole 7.5 mg daily and Depakote. It appears that the dose of Depakote was incorrectly reported on admission as 750 mg daily at bedtime, as his outpatient records indicate he was on 1250 mg daily. Will increase the dose for tonight, and can check a level in 5 days (12/18/2016). -Continue to hold Wellbutrin, due to risk of destabilizing mood if it is resumed without adequate mood stabilizing medication. -Continue to encourage the patient to participate in treatment. 12/14 -Schedule family meeting with parents. -Consider need for 303 commitment. Today is the first day he has eaten more than one meal, been out of bed, or participated in groups and programming. 12/15 -File for 303 with hearing tomorrow. -Consider increasing Abilify to 10g daily. 12/16 -303 granted, increase Abilify 12/17 - remains disorganized. abilify increased to 10mg today. tolerating well. - VPA level tomorrow 12/18 - Depakote level 137 which is a little high, however he is not symptomatic or demonstrate side effects from the Depakote and I would not immediately reduce his dose used on his level given need for acute mood stabilization. Should he become symptomatic or once adequate mood stabilization has been achieved and maintained, would then consider reduction - As he is describing some emotional blunting, may consider soon restarting a very gentle dose of Wellbutrin for some activation but will defer this to the primary team 12/19 - Continue current depakote and abilify dosing - Will need meeting with parents to discuss not living at home. 12/22 - Family meeting tomorrow 12/23 - Increase Abilify to 12.5 mg. daily - Family meeting this afternoon. 12/24 -Increased Abilify to 15mg daily to address mood stabilization and psychosis 12/26 -Called patient's father at his request; had to leave message. -Lock the door to patient's room during group times to encourage better attendance and participation. 12/27 -Patient remains oppositional and poorly engaged. He has been able to tolerate discussions with specific staff, but is still vague and evasive about his discharge plans. Again called patient's father at both numbers listed in the chart and left messages. Social work to arrange another family meeting to discuss discharge planning. We will consider the need for a 304 commitment. -Spoke with patient's father who expressed concerns about paranoia which came out in their family meeting last week. Reviewed his recent reports and lack of clear paranoia since then. He visited yesterday and thinks the patient is more appropriate than he had been, but the family continues to be unsure what to do, as they have struggled with his mental illness for 15 years. He wondered what housing options there were for him. Reviewed lack of housing in the area. 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 A neighbor has a cabin but it is unclear if it open or available. They have told him that they don't think his coming home is a good idea, but also don't want him to go to a homeless intermediate. 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 Also discussed options for OP, such as a long acting injectable and more frequent appointments in the fall/winter, when he traditionally does poorly. He is not sure why he's stopped his meds, as he hasn't given reasons. 12/28 - Being more reasonable and engaging if discharge planning. Will need to inform parents of patient's plan to be sure they support and if so, could discharge as soon as Monday. (2) Noncompliance with medications Care coordinated with Dr. Duenas. Consider the need for long-acting injectable antipsychotic, as the patient has decompensated in been hospitalized at least twice now due to going off of his medications. 12/19 - Consider [facility] Discharge / Aftercare Planning Primary Care Physician: Name: Says father had served as PCP, could use [facility] Psychiatrist: Name: Dr. Duenas Therapist: Name: [facility] Visit Code E&M Code: 24599 Risk Factors Assessment Male: Yes : Yes /single/: Yes Access to guns: No Health problems: No Mental Health Diagnoses: Yes Substance use disorders: No Previous attempt: Yes Family history of suicide: Yes (grandfather) Previous psychiatric stay: Yes Hopelessness: No Smoker: No Protective Factors Assessment Buddhist beliefs: Yes : No Responsible for young children: No Employed: No Stable relationships: No Supportive family: Yes Data Vital Signs Last 24 Hrs: Date Time Temp Pulse Resp B/P Pulse Ox O2 Delivery O2 Flow Rate FiO2 12/29/16 06:44 36.5 70 16 103/64 90 100/59 Meds Administered Last 24 Hrs: Current Inpatient Medications Medications (Trade) Dose Ordered Sig/Olena Route Start Time Stop Time Status Last Admin Dose Admin Acetaminophen (Tylenol Tab) 650 mg Q4H PRN PO 12/10/16 01:45 01/09/17 01:44 Al Hydroxide/Mg Hydroxide (Maalox Susp) 30 ml Q4H PRN PO 12/10/16 01:45 01/09/17 01:44 Bismuth Subsalicylate (Kaopectate Liqd) 15 ml DAILY PRN PO 12/10/16 01:45 01/09/17 01:44 Magnesium Hydroxide (Milk Of Magnesia Susp) 30 ml DAILY PRN PO 12/10/16 01:45 01/09/17 01:44 Sodium Chloride (Jenkins Nasal [place]) PRN PRN NA 12/10/16 01:45 01/09/17 01:44 Hydroxyzine HCl (Vistaril Tab) 50 mg HSZ PRN PO 12/10/16 01:45 01/09/17 01:44 Hydroxyzine HCl (Vistaril Tab) 25 mg Q4H PRN PO 12/10/16 01:45 01/09/17 01:44 Haloperidol Lactate (Haldol Inj) 5 mg Q4 PRN IM 12/10/16 11:00 01/09/17 10:59 Haloperidol (Haldol Tab) 5 mg Q4H PRN PO 12/10/16 11:00 01/09/17 10:59 Divalproex Sodium (Depakote Delay Rel Tab) 1,250 mg HS PO 12/13/16 22:00 01/12/17 21:59 12/28/16 21:15 1,250 MG Aripiprazole (Abilify Tab) 15 mg QAM PO 12/25/16 09:00 01/24/17 08:59 12/29/16 07:20 15 MG Lab Results Last 24 Hrs: 12/09/16 22:25 Red Blood Count 5.94, Mean Corpuscular Volume 80.8, Mean Corpuscular Hemoglobin 28.6, Mean Corpuscular Hemoglobin Concent 35.4, Mean Platelet Volume 10.6, Neutrophils (%) (Auto) 52.3, Lymphocytes (%) (Auto) 35.5, Monocytes (%) (Auto) 10.0, Eosinophils (%) (Auto) 1.5, Basophils (%) (Auto) 0.5, Neutrophils # (Auto ) 3.08, Lymphocytes # (Auto) 2.09, Monocytes # (Auto) 0.59, Eosinophils # (Auto ) 0.09, Basophils # (Auto) 0.03 12/09/16 22:25 Test 12/09/16 22:15 12/09/16 22:25 12/09/16 22:28 12/12/16 08:07 Urine Color YELLOW Urine Appearance CLEAR (CLEAR) Urine pH 7.0 (4.5-7.5) Urine Specific Gregory 1.021 (1.000-1.030) Urine Protein NEG (NEG) Urine Glucose (UA) NEG (NEG) Urine Ketones NEG (NEG) Urine Occult Blood NEG (NEG) Urine Nitrite NEG (NEG) Urine Bilirubin NEG (NEG) Urine Urobilinogen NEG (NEG) Urine Leukocyte Esterase NEG (NEG) Urine Opiates Screen NEG (NEG) Urine Methadone, Qualitative NEG (NEG) Urine Barbiturates NEG (NEG) Urine Phencyclidine (PCP) Level NEG (NEG) Ur Amphetamine/Methamphetamine NEG (NEG) MDMA (Ecstasy) Screen NEG (NEG) Urine Benzodiazepines Screen NEG (NEG) Urine Cocaine Metabolite NEG (NEG) Urine Marijuana (THC) NEG (NEG) White Blood Count 5.89 K/uL (4.8-10.8) Red Blood Count 5.94 M/uL (4.7-6.1) Hemoglobin 17.0 g/dL (14.0-18.0) Hematocrit 48.0 % (42-52) Mean Corpuscular Volume 80.8 fL (80-100) Mean Corpuscular Hemoglobin 28.6 pg (25-34) Mean Corpuscular Hemoglobin Concent 35.4 g/dl (32-36) Platelet Count 260 K/uL (130-400) Mean Platelet Volume 10.6 fL (7.4-10.4) Neutrophils (%) (Auto) 52.3 % Lymphocytes (%) (Auto) 35.5 % Monocytes (%) (Auto) 10.0 % Eosinophils (%) (Auto) 1.5 % Basophils (%) (Auto) 0.5 % Neutrophils # (Auto) 3.08 K/uL (1.4-6.5) Lymphocytes # (Auto) 2.09 K/uL (1.2-3.4) Monocytes # (Auto) 0.59 K/uL (0.11-0.59) Eosinophils # (Auto) 0.09 K/uL (0-0.5) Basophils # (Auto) 0.03 K/uL (0-0.2) RDW Standard Deviation 38.9 fL (36.4-46.3) RDW Coefficient of Variation 13.1 % (11.5-14.5) Immature Granulocyte % (Auto) 0.2 % Immature Granulocyte # (Auto) 0.01 K/uL (0.00-0.02) Anion Gap 9.0 mmol/L (3-11) Est Creatinine Clear Calc Drug Dose 149.8 ml/min Estimated GFR () 148.8 Estimated GFR (Non- 128.4 BUN/Creatinine Ratio 8.0 (10-20) Calcium Level 8.8 mg/dl (8.5-10.1) Total Bilirubin 0.3 mg/dl (0.2-1) Direct Bilirubin < 0.1 mg/dl (0-0.2) Aspartate Amino Transf (AST/SGOT) 21 U/L (15-37) Alanine Aminotransferase (ALT/SGPT) 23 U/L (12-78) Alkaline Phosphatase 49 U/L (45-117) Total Protein 6.9 gm/dl (6.4-8.2) Albumin 4.2 gm/dl (3.4-5.0) Globulin 2.7 gm/dl (2.5-4.0) Albumin/Globulin Ratio 1.6 (0.9-2) Thyroid Stimulating Hormone (TSH) 1.240 uIu/ml (0.300-4.500) Ethyl Alcohol mg/dL < 3.0 mg/dl (0-3) Vitamin D 1,25-Dihydroxy Total 43 pg/mL (18-72) 1,25 Dihydroxy Vitamin D2 <8 pg/mL 1,25 Dihydroxy Vitamin D3 43 pg/mL Fasting Glucose 87 mg/dl (70-99) Triglycerides Level 92 mg/dl (0-150) Cholesterol Level 126 mg/dl (0-200) HDL Cholesterol 57 mg/dl LDL Cholesterol, Calculated 51 mg/dl VLDL Cholesterol, Calculated 18 mg/dl Cholesterol/HDL Ratio 2.2 Test 12/18/16 08:45 Valproic Acid (Depakene) Level 137 mcg/ml (50-100) Problem Qualifiers (1) Bipolar disorder: Current bipolar episode type: mixed Current episode severity: severe Psychotic features: with psychotic features
[2016-12-29] MEDS: DIVALPROEX SODIUM 250 MG DELAY REL TAB PO SCH (21:14)
[2016-12-30 06:44] VITALS: BP_SYST 101; BP_SYST 115; BP_DIAS 61; BP_DIAS 73; PULSE 62; PULSE 73; TEMP 36.4
[2016-12-30] MEDS: ARIPIprazole TAB 15 MG TAB PO SCH (07:36)
[2016-12-30] MEDS ORDERED: DPKEC250 PO (09:54)
[2016-12-30] MEDS ORDERED: ABL15 PO (09:54)
[2016-12-30] MEDS ORDERED: DIVA500T5 PO (09:54)
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
== END 2016-12-30 16:30 | disposition home or self-care (01) | DRG 885 ==
LOC: ENRESERVTM → ENRESERVDT → C.EDB 21:27 → C.MHU 12-10 00:47
PROVIDERS: ADMIT Psychiatry & Neurology Psychiatry; ATTEND Psychiatry & Neurology Psychiatry
DX: F31.9 Bipolar disorder, unspecified (principal); Z91.14 Patient's other noncompliance with medication regimen

== ENCOUNTER 2017-04-12 20:57 | Emergency (ER) | payer BC ==
[~2017-04-12] VITALS: Ht 185.4 cm; Wt 78.6 kg
[~2017-04-12 20:57] MED LIST changes: +ABL15 PO; -ARIP1TAB8 PO; -DIVA500T5 PO; +DPKEC250 PO; -WLLSR/150 PO
[2017-04-12 21:00] VITALS: TEMP 37.1; Ht 185.4 cm; Wt 78.6 kg
[2017-04-12] MEDS ORDERED: ABL/15 PO (21:24)
[2017-04-12] MEDS ORDERED: DIVA250T PO (21:24)
[2017-04-12] MEDS ORDERED: DIVA500T3 PO (21:24)
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
[2017-04-12 21:55] LABS: BASO % 0.5 %; BASO ABS # 0.04 K/uL (0-0.2); COMPLETE YES; EOS % 1.4 %; HEMATOCRIT 48.8 % (42-52); IG% 0.3 %; LYMPH % 27.7 %; LYMPH ABS # 2.12 K/uL (1.2-3.4); MEAN CELL VOLUME 83.4 fL (80-100); MEAN CORPUSCULAR HEMOGLOBIN 27.7 pg (25-34); MEAN CORPUSCULAR HGB CONC 33.2 g/dl (32-36); MEAN PLATELET VOLUME 10.3 fL (7.4-10.4); MONO % 10.6 %; NEUT % 59.5 %; PLATELET COUNT 210 K/uL (130-400); RED BLOOD COUNT 5.85 M/uL (4.7-6.1); WHITE BLOOD COUNT 7.65 K/uL (4.8-10.8)
[2017-04-12 21:56] LABS: URINE APPEARANCE CLEAR (CLEAR); URINE BILIRUBIN NEG (NEG); URINE COLOR YELLOW; URINE NITRITE NEG (NEG); URINE PH 5.5 (4.5-7.5); URINE SPECIFIC GRAVITY 1.024 (1.000-1.030); UROBILINOGEN NEG (NEG); ZZUR CULT IF INDIC CLEAN CATCH NO
[2017-04-12 21:58] LABS: MANUAL MICROSCOPIC REQUIRED? NO; REVIEW REQ? NO
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
[2017-04-12] MEDS ORDERED: XYLOCAINE 1%/SOD BICARB 20 ML VIAL INFIL ONE (22:15)
[2017-04-12 22:22] LABS: BENZODIAZEPINE, URINE NEG (NEG); COCAINE,URINE NEG (NEG); PHENCYCLIDINE, URINE NEG (NEG)
[2017-04-12 22:51] LABS: ACETAMINOPHEN < 2 ug/ml (10-30)
[2017-04-12 23:02] LABS: ALB/GLOB RATIO 1.4 (0.9-2); BUN/CREATININE RATIO 13.5 (10-20); CREATININE 0.99 mg/dl (0.60-1.40); THYROID STIMULATING HORMONE 2.49 uIu/ml (0.300-4.500)
--- NOTE | 2017-04-13 03:28 | EMERGENCY ROOM VISIT NOTE ---
ED Visit Note First contact with patient: 02:40 This case was signed out to me at change of shift awaiting acceptance at an inpatient psychiatric facility. The patient was eventually accepted at [facility]. He will be transported there shortly. He remained cooperative throughout his stay here in the ER.
[2017-04-13 03:50] VITALS: BP 132/72; PULSE 86; O2SAT 99
== END 2017-04-13 03:50 | disposition still patient (30) ==
LOC: EDBD 20:57 → C.EDC 21:00 → C.EDA 04-13 03:50
DX: T14.91 Suicide attempt (principal); S61.412A Laceration without foreign body of left hand, initial encounter; X78.9XXA Intentional self-harm by unspecified sharp object, initial encounter; F32.9 Major depressive disorder, single episode, unspecified; Z79.899 Other long term (current) drug therapy; Z82.49 Family history of ischemic heart disease and other diseases of the circulatory system

== ENCOUNTER 2022-11-28 15:53 | Inpatient (IN) ==
[2022-11-28 17:24] LABS: Basophils # (auto) 0.08 K/uL (0-0.2); Basophils % (auto) 0.7 %; Eosinophils % (auto) 2.5 %; Hematocrit (blood only) 48.2 % (42.0-52.0); Hemoglobin 16.1 g/dl (14.0-18.0); Immature Granulocytes # (auto) 0.06 K/uL (0.01-0.20); Immature Granulocytes % (auto) 0.5 %; Lymphocytes # (auto) 2.85 K/uL (1.2-3.4); Lymphocytes % (auto) 23.9 %; Mean Corpuscular Hemoglobin 26.6 pg (25.0-34.0); Mean Corpuscular Hgb Conc 33.4 g/dL (32.0-36.0); Mean Corpuscular Volume 79.7 fL (80.0-100.0); Mean Platelet Volume 10.3 fL (9.4-12.4); Monocytes % (auto) 8.4 %; Neutrophils # (auto) 7.61 K/uL (1.40-6.50); Platelet Count 343 K/uL (130-400); RDW Coefficient of Variation 14.5 % (11.5-14.5); RDW Standard Deviation 40.9 fL (36.4-46.3); Red Blood Count 6.05 M/uL (4.70-6.10)
[2022-11-28 17:25] LABS: Appearance Urine Clear (Clear); Bacteria Urine Automated Negative (Negative); Bilirubin Urine Negative (Negative); Blood Urine Negative (Negative); Cast Urine Automated 0 /lpf (0-5); Color Urine Yellow; Glucose Urine UA Negative (Negative); Ketones Urine Negative (Negative); Leukocyte Esterase Urine Trace (Negative); Nitrite Urine Negative (Negative); Protein Urine Negative (Negative); RBC Urine Automated 0-4 /hpf (0-4); Specific Gravity Urine 1.012 (1.000-1.030); Urobilinogen Urine Negative (Negative)
[2022-11-28 17:37] LABS: Acetaminophen < 3 ug/ml (10-30); Salicylate < 3.0 mg/dl (3.0-30)
[2022-11-28 17:45] LABS: Albumin Globulin Ratio 2.5 (0.9-2); Albumin Level 4.9 gm/dl (3.4-5.0); BUN Creatinine Ratio 10.4 (10-20); Bilirubin,Total 0.5 mg/dl (0.2-1.0); Creatinine Clr Calc Pharmacy 142.7 ml/min; Est GFR (Non-African American) 107.9 ml/min; Potassium 3.9 mmol/L (3.5-5.1); Total Protein 6.9 gm/dl (6.0-8.3)
[2022-11-28 17:55] LABS: Amphetamines+Metham, Urine Neg (Neg); Barbiturates, Urine Neg (Neg); Benzodiazepine, Urine Neg (Neg); Cocaine, Urine Neg (Neg); MDMA (Ecstacy), Urine Pos (Neg); Methadone, Urine Neg (Neg); Opiate, Urine Neg (Neg); Phencyclidine, Urine Neg (Neg)
--- NOTE | 2022-11-28 18:04 | Emergency Department Note ---
History of Present Illness General Chief complaint: Mental Health Evaluation Stated complaint: MENTAL HEALTH CHECK Time Seen by Provider: 11/28/22 17:54 Source: patient, RN notes reviewed and old records reviewed Mode of arrival: ambulatory Limitations: no limitations History of Present Illness This patient is a 27-year-old male who has a history of schizophrenia, comes in after being sent over for mental health evaluation. He was recently in the [facility] and lives at [facility] he is scheduled to see a lysis on Monday. He says he been taking his medications. Denies suicidal or homicidal ideations denies hallucinations. They said that he has been talking to himself and walking a lot and he says that is normal for him. He denies any physical complaints denies any trauma denies any drugs or alcohol or marijuana. He says that he tends to do crazy things but does feel safe. Home Medications Medication Instructions Recorded Confirmed Type lithium carbonate 600 mg capsule 600 mg PO HS 03/20/21 11/28/22 History benztropine 1 mg tablet 1 mg PO HS 11/28/22 11/28/22 History haloperidol 2 mg tablet 8 mg PO BID 11/28/22 11/28/22 History lithium carbonate 300 mg capsule 300 mg PO DAILY 11/28/22 11/28/22 History trazodone 100 mg tablet 200 mg PO HS 11/28/22 11/28/22 History Allergies Allergy/AdvReac Type Severity Reaction Status Date / Time No Known Allergies Allergy Verified 11/28/22 19:38 Past Med/Surg History Medical History Bipolar disorder Depression Mood disorder Suicidal intent Family History Other No pertinent family history in first degree relatives Social History Smoking Status: Never smoker Preferred Language: Swedish Communication Ability: Effective [employer] Analyst Required: No Beliefs That Will Affect Care: None Feels Safe at Home: Yes Gender Identity: Male Assistive Devices: None Review of Systems A total of 10 systems reviewed and were otherwise negative Physical Exam Vital Signs Vital Signs - 24 hr 11/28/22 16:06 Temperature 36.6 C Temperature Source Temporal Artery Scan Pulse Rate 76 Respiratory Rate 18 Respiratory Depth Normal Blood Pressure 114/74 Blood Pressure Mean 87 Blood Pressure Position Sitting Sepsis Recent Fever Within 48 Hours No Sepsis New/Unexplained Change in Mental Status No Sepsis Action Taken by Nursing No Action Required General: Well developed well nourished young male who appears cooperative and in no acute distress, breathing comfortably on room air. Normal speech. Alert and orient x3 HEENT: Normal cephalic atraumatic. Pupils are equal round and reactive to light. Extraocular movements are intact. Oropharynx is pink with moist mucous membranes. No swelling of the mouth lips or tongue. Neck: Supple with a midline trachea. No meningeal signs or stiffness, no JVD or bruits. No Stridor. Chest: Clear to auscultation bilaterally. No wheezes or rhonchi. No increased work of breathing. Heart: Regular rate and rhythm without murmurs or gallops. Abdomen: Soft nontender, nondistended without rebound guarding or rigidity. Extremities: No cyanosis clubbing or edema. No calf tenderness or assymetry Spine/Back. Non tender to palpation. No CVA tenderness Skin: Good turgor without rashes. Neurologic exam: Cranial nerves two through 12 are intact. Motor and sensation are intact and symmetrical throughout. Psych: Normal thought process and affect. Denies suicidal homicidal ideation Course Administered Medications Haloperidol (Haloperidol 5 Mg Tab) 5 mg PO BID VIVIAN Stop: 12/28/22 23:29 Last Admin: 11/29/22 00:06 Dose: 5 mg Documented By: LARA Discontinued Medications [place] Carbonate ([place] Carbonate 300 Mg Tab) 600 mg PO NOW ONE Stop: 11/28/22 23:57 Last Admin: 11/29/22 00:06 Dose: 600 mg Documented By: LARA Trazodone HCl (Trazodone Hcl 100 Mg Tab) 200 mg PO NOW STA Stop: 11/28/22 23:59 Last Admin: 11/29/22 00:06 Dose: 200 mg Documented By: LARA Medical Decision Making Differential Diagnosis Schizophrenia, toxicologic, metabolic, susanne, psychosis, suicidal ideations, homicidal ideation Medical Records Attestation: I reviewed the patient's medical records. Home Medications Current Medication List: was personally reviewed by me Laboratory Data Attestation: I reviewed the patient's lab results. 11/28/22 17:00 11/28/22 17:00 Lab Results 11/28/22 11/28/22 11/28/22 Range/Units 17:00 17:00 17:00 WBC 11.90 H (4.8-10.8) K/ul RBC 6.05 (4.70-6.10) M/uL Hgb 16.1 (14.0-18.0) g/dl Hct 48.2 (42.0-52.0) % MCV 79.7 L (80.0-100.0) fL MCH 26.6 (25.0-34.0) pg MCHC 33.4 (32.0-36.0) g/dL RDW Std Deviation 40.9 (36.4-46.3) fL RDW Coeff of Bel[place] 14.5 (11.5-14.5) % Plt Count 343 (130-400) K/uL MPV 10.3 (9.4-12.4) fL Immature Gran % (Auto) 0.5 % Neut % (Auto) 64.0 % Lymph % (Auto) 23.9 % [place] % (Auto) 8.4 % Eos % (Auto) 2.5 % Baso % (Auto) 0.7 % Neut # (Auto) 7.61 H (1.40-6.50) K/uL Lymph # (Auto) 2.85 (1.2-3.4) K/uL [place] # (Auto) 1.00 H (0.11-0.59) K/uL Eos # (Auto) 0.30 (0-0.50) K/uL Baso # (Auto) 0.08 (0-0.2) K/uL Immature Gran # (Auto) 0.06 (0.01-0.20) K/uL Sodium 139 (136-145) mmol/L Potassium 3.9 (3.5-5.1) mmol/L Chloride 103 (98-107) mmol/L Carbon Dioxide 33 H (21-32) mmol/L Anion Gap 3 (3-11) BUN 10 (6-23) mg/dl Creatinine 0.96 (0.6-1.4) mg/dl Est Cr Clr Drug Dosing 142.7 ml/min Est GFR ( Amer) 125.0 ml/min Est GFR (Non-Af Amer) 107.9 ml/min BUN/Creatinine Ratio 10.4 (10-20) Glucose 112 H (70-99(Fasting)) mg/dl Calcium 10.0 (8.5-10.1) mg/dl Total Bilirubin 0.5 (0.2-1.0) mg/dl AST 22 (13-39) U/L ALT 27 (7-52) U/L Alkaline Phosphatase 54 (34-104) U/L Total Protein 6.9 (6.0-8.3) gm/dl Albumin 4.9 (3.4-5.0) gm/dl Globulin 2.0 L (2.5-4.0) gm/dl Albumin/Globulin Ratio 2.5 H (0.9-2) TSH 0.041 L (0.300-4.500) uIu/ml Urine Color Urine Appearance (Clear) Urine pH (4.5-7.5) Ur Specific [place] (1.000-1.030) Urine Protein (Negative) Urine Glucose (UA) (Negative) Urine Ketones (Negative) Urine Blood (Negative) Urine Nitrite (Negative) Urine Bilirubin (Negative) Urine Urobilinogen (Negative) Ur Leukocyte Esterase (Negative) Urine WBC (Auto) (0-5) /hpf Urine RBC (Auto) (0-4) /hpf U Hyaline Cast (Auto) (0-5) /lpf U Epithel Cells (Auto) (0-5) /lpf Urine Bacteria (Auto) (Negative) Salicylates (3.0-30) mg/dl Urine Opiates Screen (Neg) Ur Methadone, Qual (Neg) Acetaminophen (10-30) ug/ml Urine Barbiturates (Neg) Ur Phencyclidine (PCP) (Neg) U Amphetamin/Meth Scrn (Neg) MDMA (Ecstasy) Screen (Neg) U Benzodiazepines Scrn (Neg) Ur Cocaine Metabolite (Neg) U Marijuana (THC) Screen (Neg) Ethyl Alcohol mg/dL (<10.0) mg/dl SARS-CoV-2, RNA, NAAT (NEGATIVE) 11/28/22 11/28/22 11/28/22 Range/Units 17:00 17:00 17:01 WBC (4.8-10.8) K/ul RBC (4.70-6.10) M/uL Hgb (14.0-18.0) g/dl Hct (42.0-52.0) % MCV (80.0-100.0) fL MCH (25.0-34.0) pg MCHC (32.0-36.0) g/dL RDW Std Deviation (36.4-46.3) fL RDW Coeff of Bel[place] (11.5-14.5) % Plt Count (130-400) K/uL MPV (9.4-12.4) fL Immature Gran % (Auto) % Neut % (Auto) % Lymph % (Auto) % [place] % (Auto) % Eos % (Auto) % Baso % (Auto) % Neut # (Auto) (1.40-6.50) K/uL Lymph # (Auto) (1.2-3.4) K/uL [place] # (Auto) (0.11-0.59) K/uL Eos # (Auto) (0-0.50) K/uL Baso # (Auto) (0-0.2) K/uL Immature Gran # (Auto) (0.01-0.20) K/uL Sodium (136-145) mmol/L Potassium (3.5-5.1) mmol/L Chloride (98-107) mmol/L Carbon Dioxide (21-32) mmol/L Anion Gap (3-11) BUN (6-23) mg/dl Creatinine (0.6-1.4) mg/dl Est Cr Clr Drug Dosing ml/min Est GFR ( Amer) ml/min Est GFR (Non-Af Amer) ml/min BUN/Creatinine Ratio (10-20) Glucose (70-99(Fasting)) mg/dl Calcium (8.5-10.1) mg/dl Total Bilirubin (0.2-1.0) mg/dl AST (13-39) U/L ALT (7-52) U/L Alkaline Phosphatase (34-104) U/L Total Protein (6.0-8.3) gm/dl Albumin (3.4-5.0) gm/dl Globulin (2.5-4.0) gm/dl Albumin/Globulin Ratio (0.9-2) TSH (0.300-4.500) uIu/ml Urine Color Yellow Urine Appearance Clear (Clear) Urine pH 7.0 (4.5-7.5) Ur Specific [place] 1.012 (1.000-1.030) Urine Protein Negative (Negative) Urine Glucose (UA) Negative (Negative) Urine Ketones Negative (Negative) Urine Blood Negative (Negative) Urine Nitrite Negative (Negative) Urine Bilirubin Negative (Negative) Urine Urobilinogen Negative (Negative) Ur Leukocyte Esterase Trace H (Negative) Urine WBC (Auto) 5-10 H (0-5) /hpf Urine RBC (Auto) 0-4 (0-4) /hpf U Hyaline Cast (Auto) 0 (0-5) /lpf U Epithel Cells (Auto) 10-20 H (0-5) /lpf Urine Bacteria (Auto) Negative (Negative) Salicylates < 3.0 L (3.0-30) mg/dl Urine Opiates Screen (Neg) Ur Methadone, Qual (Neg) Acetaminophen < 3 L (10-30) ug/ml Urine Barbiturates (Neg) Ur Phencyclidine (PCP) (Neg) U Amphetamin/Meth Scrn (Neg) MDMA (Ecstasy) Screen (Neg) U Benzodiazepines Scrn (Neg) Ur Cocaine Metabolite (Neg) U Marijuana (THC) Screen (Neg) Ethyl Alcohol mg/dL < 10.0 (<10.0) mg/dl SARS-CoV-2, RNA, NAAT (NEGATIVE) 11/28/22 11/28/22 Range/Units 17:01 19:37 WBC (4.8-10.8) K/ul RBC (4.70-6.10) M/uL Hgb (14.0-18.0) g/dl Hct (42.0-52.0) % MCV (80.0-100.0) fL MCH (25.0-34.0) pg MCHC (32.0-36.0) g/dL RDW Std Deviation (36.4-46.3) fL RDW Coeff of Belén (11.5-14.5) % Plt Count (130-400) K/uL MPV (9.4-12.4) fL Immature Gran % (Auto) % Neut % (Auto) % Lymph % (Auto) % [place] % (Auto) % Eos % (Auto) % Baso % (Auto) % Neut # (Auto) (1.40-6.50) K/uL Lymph # (Auto) (1.2-3.4) K/uL [place] # (Auto) (0.11-0.59) K/uL Eos # (Auto) (0-0.50) K/uL Baso # (Auto) (0-0.2) K/uL Immature Gran # (Auto) (0.01-0.20) K/uL Sodium (136-145) mmol/L Potassium (3.5-5.1) mmol/L Chloride (98-107) mmol/L Carbon Dioxide (21-32) mmol/L Anion Gap (3-11) BUN (6-23) mg/dl Creatinine (0.6-1.4) mg/dl Est Cr Clr Drug Dosing ml/min Est GFR ( Amer) ml/min Est GFR (Non-Af Amer) ml/min BUN/Creatinine Ratio (10-20) Glucose (70-99(Fasting)) mg/dl Calcium (8.5-10.1) mg/dl Total Bilirubin (0.2-1.0) mg/dl AST (13-39) U/L ALT (7-52) U/L Alkaline Phosphatase (34-104) U/L Total Protein (6.0-8.3) gm/dl Albumin (3.4-5.0) gm/dl Globulin (2.5-4.0) gm/dl Albumin/Globulin Ratio (0.9-2) TSH (0.300-4.500) uIu/ml Urine Color Urine Appearance (Clear) Urine pH (4.5-7.5) Ur Specific [place] (1.000-1.030) Urine Protein (Negative) Urine Glucose (UA) (Negative) Urine Ketones (Negative) Urine Blood (Negative) Urine Nitrite (Negative) Urine Bilirubin (Negative) Urine Urobilinogen (Negative) Ur Leukocyte Esterase (Negative) Urine WBC (Auto) (0-5) /hpf Urine RBC (Auto) (0-4) /hpf U Hyaline Cast (Auto) (0-5) /lpf U Epithel Cells (Auto) (0-5) /lpf Urine Bacteria (Auto) (Negative) Salicylates (3.0-30) mg/dl Urine Opiates Screen Neg (Neg) Ur Methadone, Qual Neg (Neg) Acetaminophen (10-30) ug/ml Urine Barbiturates Neg (Neg) Ur Phencyclidine (PCP) Neg (Neg) U Amphetamin/Meth Scrn Neg (Neg) MDMA (Ecstasy) Screen Pos H (Neg) U Benzodiazepines Scrn Neg (Neg) Ur Cocaine Metabolite Neg (Neg) U Marijuana (THC) Screen Neg (Neg) Ethyl Alcohol mg/dL (<10.0) mg/dl SARS-CoV-2, RNA, NAAT NEGATIVE (NEGATIVE) MDM Narrative This patient comes in as described above. He has has a known cyst psychiatric history of psychosis. He is in an assisted living situation at present. He denies suicidal or homicidal ideations and is cooperative here he denies hallucinations. He admits to having some degree of psychosis at times. He was medically cleared. Blood work was obtained including urine which did not show any acute abnormalities suggest toxicologic metabolic infectious or other etiology. He remained cooperative. He was medically cleared he has nothing suggest acute electrolyte or metabolic or infectious or toxicologic abnormalities TSH is mildly low but I do not not find evidence to suggest he is in thyroid storm clinically. He was evaluated by psychiatric case management team and will be admitted voluntarily to [facility]. Impression & Plan Psychosis, Lab test negative for COVID-19 virus Discharge Plan Visit Data Chief Complaint: Mental Health Evaluation Stated Complaint: MENTAL HEALTH CHECK ED Provider: Scott Vivas Discharge Problem: Psychosis, Lab test negative for COVID-19 virus Patient Disposition: Admitted As Inpatient Discharge Instructions Interventions: ED Discharge Assessment Last Done: 11/28/22 23:21 Psychosis Qualifiers: Psychosis type: unspecified psychosis type Qualified Code(s): F29 - Unspecified psychosis not due to a substance or known physiological condition
[2022-11-28] MEDS ORDERED: MAGNESIUM HYDROXIDE SUSP 30 ML UDC PO PRN (22:34)
[2022-11-28] MEDS ORDERED: SODIUM CHLORIDE 0.65% NA SOLN 45 ML (OCEAN) PRN (22:34)
[2022-11-28] MEDS ORDERED: BISMUTH SUBSALICYLATE LIQD 236 ML PO PRN (22:34)
[2022-11-28] MEDS ORDERED: ALUMINUM/MAGNESIUM SUSP 30 ML UDC PO PRN (22:34)
[2022-11-28] MEDS ORDERED: hydrOXYzine HCl 25 MG TAB PO PRN ×2 (22:34)
[2022-11-28] MEDS ORDERED: haloperidoL 5 MG TAB PO SCH (23:30)
[2022-11-28] MEDS ORDERED: LITHIUM CARBONATE 300 MG TAB PO ONE (23:56)
[2022-11-28] MEDS ORDERED: traZODone HCL 100 MG TAB PO STA (23:58)
--- NOTE | 2022-11-29 08:24 | History & Physical ---
Date of Service November 29, 2022 Impression / Recommendations Impression Naseem is a 27 year old man with a history of schizoaffective disorder and past [facility] admissions and recently discharged from the [facility] (during which time his clozapine was discontinued) who was admitted for disorganized behaviors and psychosis. Diagnostically consistent with acute exacerbation of schizoaffective disorder. No evidence for any recent substance use, UDS positive for MDMA but suspect this is a false positive from trazodone use. Possibility for contribution from underlying medical cause as his WBC was slightly elevated but vital signs have been stable, afebrile, no physical complaints. TSH is low so will check free T4. The patient is deemed unstable and requires psychiatric hospitalization for diagnostic clarification, safety and stabilization, medication management and development of further coping skills. Will attempt to get records from [facility] and the [facility] to clarify why his clozapine was stopped and other prior medication trials. He consents to continuing his current medications of trazodone, Candor and haldol for now. Discussed medication treatment options in detail. Reviewed side effects including but not limited to: sedation/priapism with trazodone, movement (TD, NMS), cardiac (QTc prolongation), and metabolic (stroke, insulin resistance) and necessity for fasting lipid and glucose labwork and AIMS done with score of 0 with haldol and risks of dehydration, renal, thyroid, cardiac, drug interactions (NSAIDs, ACEIs, angiotensin receptor antagonists) with lithium and reviewed labs of thyroid function (low TSH, will check free T4), kidney function, weight, electrolytes, CBC, and UA were preformed in the ED and stable. MNPR due to acute psychosis and paranoia (1) Schizoaffective disorder: (2) Psychosis: Psychosis type: unspecified psychosis type Qualified Code(s): F29 - Unspecified psychosis not due to a substance or known physiological condition Plan 11/29/2022: The patient was admitted [facility] on q15 min checks (behavioral with suicide precautions) for safety. The patient will participate in group, recreational, and milieu therapies and will be offered additional individual and family sessions as clinically appropriate. -Attempt records from [facility] to determine past medication trials, would likely benefit from clozapine if he hasn't tried this before and no contraindications -For now will continue Candor, haldol, trazodone and cogentin -Will get Candor level tomorrow AM and fasting lipid panel, glucose and HbA1c and free T4 Inventory Assets Strengths: supportive relationships, willing to get treatment Needs: safety and stabilization, medication adjustment, additional coping skills, increased outpatient services Suicide Risk Level Suicide Risk Level: Moderate (q15 min suicide checks) (psychosis with disorganized behaviors but feels safe in the hospital, able to safety contract and agrees to let nursing/staff know should he develop SI or feel unable to remain safe. ) Risk Factors Assessment Male: Yes : Yes Do You Have Access To A Gun?: No Mental Health Diagnoses: Yes Substance Use Disorders: No Previous Attempt: No Previous Psychiatric Hospitalization: Yes Protective Factors Assessment Employed: No Stable Relationships: Yes Supportive Family: Yes Good Rapport with Provider: Yes Psychiatric History Identifying Data NASEEM MCGEE is a 27-year-old M who currently lives at [facility] with a roommate, has a history of schizoaffective disorder, and was admitted on 11/28/22 23:11 on a 201 voluntary commitment for disorganized behaviors and acute exacerbation of psychosis. Chief Complaint "I turned myself into a Vampire, I don't recommend doing it". History of Present Illness Naseem presents for psychiatric admission for psychosis and odd behaviors including his concern that he may accidentally hurt others by mixing creations of household items which he feels compelled to do in an effort to create inventions that can be used for electronic capacitor parts. He was recently discharged from the [facility] where he was hospitalized for about 2.5 months and while there they discontinued his clozapine 50mg qAM and 225mg HS. Upon returning to his supportive living home at [facility] they felt he looked worse than before going to the [facility] with responding to internal stimuli and expressing concerns about anthrax poisoning and attacks. Today he describes his recent inventions including mixing water and oil in a way that could "blow up" things if incorrectly added to other gasoline sources, creating a supersaturated salt and mixing mountain dew with canola oil "like on [employer]" which he fears may have caused posion to be released and thinks that he unintentionally may have killed 30 people. Tells me "I don't know who they are but I feel awful about it". He also speaks of recently turning himself into a Vampire while at the [facility] and that he successful created and tried out "time traveling". He feels his mood is currently stable and that his main symptom is "psychosis" but agrees he has experienced susanne and depression in the past and feels that schizoaffective disorder is an accurate diagnosis. He is currently prescribed psychiatric medications of haldol 8mg BID, lithium 300mg qd & 600mg HS, trazodone 200mg HS and cogentin 1mg HS. Further recent history reviewed and confirmed as documented by ED psych CM on 11/28/22: "Patient resides at [facility] and carries diagnoses of schizoaffective and bipolar disorder. He denies any suicidality or homicidality. He does state that he feels "unstable". He describes complex mathematical processes and inventions that he has been working on. He states that he is worried because he has been making inventions that could cause the end of humanity. He describes a mixture of mountain dew, canola oil, and salt that could harm people. He states he feels compelled to invent things but does not want to hurt anyone. He endorses past suicidal thoughts but nothing in the past ten years or so. He follows with [facility] for psychiatry but does not have a therapist. He states he would like to have a therapist but has not been set up with one. He is delusional in regards to his status as a mutant and states that he has the ability to know all things about all people. He states he is respective of others' privacy though, so he does not typically use those zaragoza. Denies legal issues, A/V hallucinations, SIB, and any abuse history. Denies any drug or alcohol use. He feels that inpatient treatment would be helpful for him to stabilize." Past Psychiatric History Current Psychiatric Diagnosis: Unspecified psychosis Outpatient Services: [facility] for psychiatry, CM through [facility] Previous Psych Admissions: multiple including [facility] multiple times (most recently February 2022) and [facility] in the past. Do You Have Access To A Gun?: No History of Previous Suicide Attempt: No Past Medication Trials: unknown, he can't recall Past Head Trauma/Neuro History History of Concussion/Seizure: No Allergies Allergy/AdvReac Type Severity Reaction Status Date / Time No Known Allergies Allergy Verified 11/28/22 19:38 Home Medications Medication Instructions Recorded Confirmed Type lithium carbonate 600 mg capsule 600 mg PO HS 03/20/21 11/28/22 History benztropine 1 mg tablet 1 mg PO HS 11/28/22 11/28/22 History haloperidol 2 mg tablet 8 mg PO BID 11/28/22 11/28/22 History lithium carbonate 300 mg capsule 300 mg PO DAILY 11/28/22 11/28/22 History trazodone 100 mg tablet 200 mg PO HS 11/28/22 11/28/22 History Family History Family History of: Doesn't Know Alcohol History Hx of Alcohol Use Over the Past 12 Months: No AUDIT Total Score: 0 Smoking Use Have You Smoked or Used Tobacco Products in the Last 30 Days: No Smoking Status: Never smoker Substance History Hx of Prescription Med Misuse Over the Past 12 Months: No Hx of Over the Counter Med Misuse Over the Past 12 Months: No Hx of Inhalent Misuse Over the Past 12 Months: No Hx of Organic Substance Use Over the Past 12 Months: No Hx of Illegal Substances/Street Drug Use Over Past 12 Months: No Personal History Living Arrangements: Supervised Living Childhood: Grew up in [place]. Highest Grade Completed: College (BS in [employer]) Employment Status: Disabled Marital Status: Single Number Of Children: 0 Beliefs That Will Affect Care: None Current Legal Problems: No Hx Legal Problems: No Hx Traumatic Life Events: No Patient History Medical History Bipolar disorder Depression Mood disorder Suicidal intent Family History Other No pertinent family history in first degree relatives Social History Smoking Status: Never smoker Preferred Language: Yakut Communication Ability: Effective Hydraulic Spinner Required: No Beliefs That Will Affect Care: None Feels Safe at Home: Yes Gender Identity: Male Assistive Devices: None Review of Systems Review of Systems: All systems reviewed & are unremarkable except as noted in HPI & below Physical Exam Psychiatric: Orientation: alert and oriented x 3 Apperance: appropriately dressed and appropriately groomed Eye Contact: + fair eye contact Motor Behavior: no abnormal motor movements Speech: normal rate/rhythm/volume of speech Affect: + blunted affect Mood: + depressed mood and + anxious mood Thought Process: + circumstantial thought process and + looseness of associations Thought Content: + paranoid, + delusions, + ideas of reference and + thought broadcasting Suicidal Thoughts: denies suicidal thoughts, denies suicidal plan and denies suicidal intent Homicidal Thoughts: denies homicidal thoughts (but worries he might accidentally harm someone with his inventions) Hallucinations: + auditory hallucinations; no visual hallucinations Cognition: remote memory grossly intact and language grossly intact; + recent memory not intact and + attention not intact Estimated Intelligence: consistent with education level Insight: + limited insight Judgment: + limited judgement Vital Signs (Past 24 Hours): Last Vital Signs Temp 36.6 C 11/29/22 06:38 Pulse 81 11/29/22 06:39 Resp 16 11/29/22 06:38 BP 107/67 11/29/22 06:39 Exam Statement: A physical exam was performed in the ED by Dr. Vivas for the purposes of m edical clearance. I accept that physical as correct and adequate for the purposes of the inpatient physical exam. Results & Data (U) Laboratory Results Laboratory Results - last 24 hr 11/28/22 11/28/22 11/28/22 17:00 17:00 17:00 WBC 11.90 H RBC 6.05 Hgb 16.1 Hct 48.2 MCV 79.7 L MCH 26.6 MCHC 33.4 RDW Std Deviation 40.9 RDW Coeff of Belén 14.5 Plt Count 343 MPV 10.3 Immature Gran % (Auto) 0.5 Neut % (Auto) 64.0 Lymph % (Auto) 23.9 [place] % (Auto) 8.4 Eos % (Auto) 2.5 Baso % (Auto) 0.7 Neut # (Auto) 7.61 H Lymph # (Auto) 2.85 [place] # (Auto) 1.00 H Eos # (Auto) 0.30 Baso # (Auto) 0.08 Immature Gran # (Auto) 0.06 Sodium 139 Potassium 3.9 Chloride 103 Carbon Dioxide 33 H Anion Gap 3 BUN 10 Creatinine 0.96 Est Cr Clr Drug Dosing 142.7 Est GFR ( Amer) 125.0 Est GFR (Non-Af Amer) 107.9 BUN/Creatinine Ratio 10.4 Glucose 112 H Calcium 10.0 Total Bilirubin 0.5 AST 22 ALT 27 Alkaline Phosphatase 54 Total Protein 6.9 Albumin 4.9 Globulin 2.0 L Albumin/Globulin Ratio 2.5 H TSH 0.041 L Urine Color Urine Appearance Urine pH Ur Specific [place] Urine Protein Urine Glucose (UA) Urine Ketones Urine Blood Urine Nitrite Urine Bilirubin Urine Urobilinogen Ur Leukocyte Esterase Urine WBC (Auto) Urine RBC (Auto) U Hyaline Cast (Auto) U Epithel Cells (Auto) Urine Bacteria (Auto) Salicylates Urine Opiates Screen Ur Methadone, Qual Acetaminophen Urine Barbiturates Ur Phencyclidine (PCP) U Amphetamin/Meth Scrn Urine MDEA MDMA (Ecstasy) Screen MDMA Urine MDMA U Benzodiazepines Scrn Ur Cocaine Metabolite U Marijuana (THC) Screen Ethyl Alcohol mg/dL SARS-CoV-2, RNA, NAAT 11/28/22 11/28/22 11/28/22 17:00 17:00 17:01 WBC RBC Hgb Hct MCV MCH MCHC RDW Std Deviation RDW Coeff of Belén Plt Count MPV Immature Gran % (Auto) Neut % (Auto) Lymph % (Auto) [place] % (Auto) Eos % (Auto) Baso % (Auto) Neut # (Auto) Lymph # (Auto) [place] # (Auto) Eos # (Auto) Baso # (Auto) Immature Gran # (Auto) Sodium Potassium Chloride Carbon Dioxide Anion Gap BUN Creatinine Est Cr Clr Drug Dosing Est GFR ( Amer) Est GFR (Non-Af Amer) BUN/Creatinine Ratio Glucose Calcium Total Bilirubin AST ALT Alkaline Phosphatase Total Protein Albumin Globulin Albumin/Globulin Ratio TSH Urine Color Yellow Urine Appearance Clear Urine pH 7.0 Ur Specific [place] 1.012 Urine Protein Negative Urine Glucose (UA) Negative Urine Ketones Negative Urine Blood Negative Urine Nitrite Negative Urine Bilirubin Negative Urine Urobilinogen Negative Ur Leukocyte Esterase Trace H Urine WBC (Auto) 5-10 H Urine RBC (Auto) 0-4 U Hyaline Cast (Auto) 0 U Epithel Cells (Auto) 10-20 H Urine Bacteria (Auto) Negative Salicylates < 3.0 L Urine Opiates Screen Ur Methadone, Qual Acetaminophen < 3 L Urine Barbiturates Ur Phencyclidine (PCP) U Amphetamin/Meth Scrn Urine MDEA MDMA (Ecstasy) Screen MDMA Urine MDMA U Benzodiazepines Scrn Ur Cocaine Metabolite U Marijuana (THC) Screen Ethyl Alcohol mg/dL < 10.0 SARS-CoV-2, RNA, NAAT 11/28/22 11/28/22 11/28/22 17:01 17:01 19:37 WBC RBC Hgb Hct MCV MCH MCHC RDW Std Deviation RDW Coeff of Belén Plt Count MPV Immature Gran % (Auto) Neut % (Auto) Lymph % (Auto) [place] % (Auto) Eos % (Auto) Baso % (Auto) Neut # (Auto) Lymph # (Auto) [place] # (Auto) Eos # (Auto) Baso # (Auto) Immature Gran # (Auto) Sodium Potassium Chloride Carbon Dioxide Anion Gap BUN Creatinine Est Cr Clr Drug Dosing Est GFR ( Amer) Est GFR (Non-Af Amer) BUN/Creatinine Ratio Glucose Calcium Total Bilirubin AST ALT Alkaline Phosphatase Total Protein Albumin Globulin Albumin/Globulin Ratio TSH Urine Color Urine Appearance Urine pH Ur Specific [place] Urine Protein Urine Glucose (UA) Urine Ketones Urine Blood Urine Nitrite Urine Bilirubin Urine Urobilinogen Ur Leukocyte Esterase Urine WBC (Auto) Urine RBC (Auto) U Hyaline Cast (Auto) U Epithel Cells (Auto) Urine Bacteria (Auto) Salicylates Urine Opiates Screen Neg Ur Methadone, Qual Neg Acetaminophen Urine Barbiturates Neg Ur Phencyclidine (PCP) Neg U Amphetamin/Meth Scrn Neg Urine MDEA Pending MDMA (Ecstasy) Screen Pos H MDMA Pending Urine MDMA Pending U Benzodiazepines Scrn Neg Ur Cocaine Metabolite Neg U Marijuana (THC) Screen Neg Ethyl Alcohol mg/dL SARS-CoV-2, RNA, NAAT NEGATIVE Current Inpatient Medications Current Inpatient Medications: Current Inpatient Medications Acetaminophen (Acetaminophen 325 Mg Tab) 650 mg PO Q4H PRN PRN Reason: Headache or Minor Fever Stop: 12/28/22 22:33 Al Hydrox/Mg Hydrox/Simethicone (Aluminum/Magnesium Susp 30 Ml Udc) 30 ml PO Q4H PRN PRN Reason: GI Upset Stop: 12/28/22 22:33 Bismuth Subsalicylate (Bismuth Subsalicylate Liqd 236 Ml) 15 ml PO PRN PRN PRN Reason: Loose Stool Stop: 12/28/22 22:33 Haloperidol (Haloperidol 5 Mg Tab) 5 mg PO BID VIVIAN Stop: 12/28/22 23:29 Last Admin: 11/29/22 00:06 Dose: 5 mg Haloperidol (Haloperidol 5 Mg Tab) 2.5 mg PO BID PRN PRN Reason: Anxiety/Agitation Stop: 12/29/22 08:59 Hydroxyzine HCl (Hydroxyzine Hcl 25 Mg Tab) 25 mg PO Q4H PRN PRN Reason: Anxiety Stop: 12/28/22 22:33 Hydroxyzine HCl (Hydroxyzine Hcl 25 Mg Tab) 50 mg PO HSZ PRN PRN Reason: Insomnia Stop: 12/28/22 22:33 Candor Carbonate (Candor Carbonate 300 Mg Tab) 600 mg PO HS VIVIAN Stop: 12/29/22 21:59 Magnesium Hydroxide (Magnesium Hydroxide Susp 30 Ml Udc) 30 ml PO DAILY PRN PRN Reason: Constipation Stop: 12/28/22 22:33 Sodium Chloride (Sodium Chloride 0.65% Na Soln 45 Ml ([place])) 1 - 2 sprays NA PRN PRN PRN Reason: Nasal Dryness/Congestion Stop: 12/28/22 22:33 Trazodone HCl (Trazodone Hcl 100 Mg Tab) 200 mg PO HS VIVIAN Stop: 12/29/22 21:59
[2022-11-29] MEDS: haloperidoL 1 MG TAB PO SCH ×2 (08:58→21:15)
[2022-11-29] MEDS: haloperidoL 5 MG TAB PO SCH ×2 (08:58→21:14)
[2022-11-29] MEDS: LITHIUM CARBONATE 300 MG TAB PO SCH ×2 (10:06→21:16)
[2022-11-29] MEDS ORDERED: LITHIUM CARBONATE 300 MG TAB PO SCH (22:00)
[2022-11-29] MEDS ORDERED: BENZTROPINE MESYLATE 1 MG TAB PO SCH (22:00)
[2022-11-29] MEDS ORDERED: traZODone HCL 100 MG TAB PO SCH ×2 (22:00)
[2022-11-30 07:53] LABS: Chol HDL Ratio 3.5 (0-5)
[2022-11-30 08:47] LABS: Estimated Average Glucose 114 mg/dl; Hemoglobin A1C 5.6 % (4.5-5.6)
--- NOTE | 2022-11-30 08:56 | Psychiatric Progress Note ---
Date of Service November 30, 2022 Impression / Recommendations Mireille Hua is a 27 year old man with a history of schizoaffective disorder and [facility] and [facility] discharged from the [facility] (during which time his clozapine was discontinued) who was admitted for disorganized behaviors and psychosis. Diagnostically consistent with acute exacerbation of schizoaffective disorder. No evidence for any recent substance use, UDS positive for MDMA but suspect this is a false positive from trazodone use. Possibility for contribution from underlying medical cause as his WBC was slightly elevated but vital signs have been stable, afebrile, no physical complaints. TSH is low so will check free T4. The patient is deemed unstable and requires psychiatric hospitalization for diagnostic clarification, safety and stabilization, medication management and development of further coping skills. MNPR due to acute psychosis and paranoia 11/30/2022: Ongoing acute exacerbation of psychosis with delusions, paranoia and internal stimuli. Reviewed [facility] and [facility] records. No rationale on [facility] records for why clozapine was stopped, no evidence based on review of [place] records for any history of ANC changes or other side effects. Labwork reviewed: fasting glucose slightly elevated to 101, HBA1c normal at 5.6%, fasting lipid panel is normal with exception of low HDL, free T3/T4 are normal. Eastlake level stable and therapeutic at 0.6 mmol/L. Discussed medication treatment options including restarting clozapine. Discussed risks, benefits and alternatives. Patient would like to start and consented to clozapine for schizoaffective disorder. Reviewed side effects including but not limited to: REMS process, weekly WBC/ANC monitoring for the first six months, severe neutropenia with potential for life threatening agranulocytosis, blood clots (DVT, PE), movement (TD, NMS), cardiac (QTc prolongation, myocarditis, cardiomyopathy), constipation, hepatotoxicity, and metabolic (stroke, insulin resistance), necessity for routine fasting lipid and glucose labwork, AIMS done with score of 0. ANC reviewed and stable and appropriate for starting clozapine (>1,500 micro L). Fasting labwork reviewed, BP reviewed and stable. Will continue with dual antipsychotic treatment of clozapine and haldol as clozapine is titrated and given evidence for multiple repeated trials of failed antipsychotic monotherapy and previously stabilized on haldol and clozapine c ombination. (1) Schizoaffective disorder: (2) Psychosis: Plan 11/30/2022: -Start clozapine 12.5 mg BID -Weekly ANC ordered -Start docusate 250mg daily and miralax 17g prn for constipation -Continue haldol, lithium -Switch to cogentin as needed (given evidence scheduled use may increase risk of TD mcc) and discontinue trazodone as starting clozapine 11/29/2022: The patient was admitted to the [facility] ([facility] mental health unit) on q15 min checks (behavioral with suicide precautions) for safety. The patient will participate in group, recreational, and milieu therapies and will be offered additional individual and family sessions as clinically appropriate. -Attempt records from [place] to determine past medication trials, would likely benefit from clozapine if he hasn't tried this before and no contraindications -For now will continue [place]lake, haldol, trazodone and cogentin -Will get Eastlake level tomorrow AM and fasting lipid panel, glucose and HbA1c and free T4 Inventory Assets Strengths: supportive relationships, willing to get treatment Needs: safety and stabilization, medication adjustment, additional coping skills, increased outpatient services Suicide Risk Level Suicide Risk Level: Moderate (q15 min suicide checks) (psychosis with disorganized behaviors and today with intermittent SI but no plan, but feels safe in the hospital, able to safety contract and agrees to let nursing/staff know should he develop SI or feel unable to remain safe. ) Risk Factors Assessment Male: Yes : Yes Do You Have Access To A Gun?: No Mental Health Diagnoses: Yes Substance Use Disorders: No Previous Attempt: No Previous Psychiatric Hospitalization: Yes Protective Factors Assessment Employed: No Stable Relationships: Yes Supportive Family: Yes Good Rapport with Provider: Yes Interval History Identifying Information NASEEM MCGEE is a 27-year-old M who currently lives at [facility] with a roommate, has a history of schizoaffective disorder, and was admitted on 11/28/22 23:11 on a 201 voluntary commitment for disorganized behaviors and acute exacerbation of psychosis. Chief Complaint "I'm up and down because I'm going through conspiracy theories". Review of Systems Sleep Information Total Hours of Sleep: 7 Sleep Comments: [place] responding to internal stimuli Meal Information Percent Meal Consumed - Breakfast: 100 Percent Meal Consumed - Lunch: 100 Percent Meal Consumed - Dinner: 100 Subjective Subjective Patient was seen & assessed and interval progress reviewed with treatment team nursing and social work. When alone in his room he is constantly responding to internal stimuli, reported that he is talking to Ashwin who he reports is a really good zoey. Early in the day reported he was suicidal but then stated this improved. 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 He is agreeable to restarting clozapine. Denies any prior side effects but states the [facility] stopped this because "[place] does what it wants". Physical Exam Psychiatric Orientation: alert and oriented x 3 Apperance: appropriately dressed and appropriately groomed Eye Contact: + fair eye contact Motor Behavior: no abnormal motor movements Speech: normal rate/rhythm/volume of speech Affect: + blunted affect Mood: + depressed mood and + anxious mood Thought Process: + circumstantial thought process and + looseness of associati ons Thought Content: + paranoid, + delusions, + ideas of reference and + thought broadcasting Suicidal Thoughts: denies suicidal plan and denies suicidal intent; + reports suicidal thoughts (none currently but thoughts earlier in the day) Homicidal Thoughts: denies homicidal thoughts (but worries he might accidentally harm someone with his inventions) Hallucinations: + auditory hallucinations; no visual hallucinations Cognition: recent memory grossly intact, remote memory grossly intact, attention grossly intact and language grossly intact Estimated Intelligence: consistent with education level Insight: + limited insight Judgment: + limited judgement Vital Signs (Past 24 Hours) Last Vital Signs Temp 36.5 C 11/30/22 06:39 Pulse 61 11/30/22 06:40 Resp 16 11/30/22 06:39 BP 102/68 11/30/22 06:40 Results & Data ([facility]) Laboratory Results Laboratory Results - last 24 hr 11/30/22 11/30/22 11/30/22 07:11 07:11 07:11 Fasting Glucose 101 H Estimat Average Glucose 114 Hemoglobin A1c 5.6 Triglycerides 119 Cholesterol 123 LDL Cholesterol, Calc 64 VLDL Cholesterol, Calc 24 HDL Cholesterol 35 Cholesterol/HDL Ratio 3.5 Free T4 0.77 Free T3 11/30/22 07:11 Fasting Glucose Estimat Average Glucose Hemoglobin A1c Triglycerides Cholesterol LDL Cholesterol, Calc VLDL Cholesterol, Calc HDL Cholesterol Cholesterol/HDL Ratio Free T4 Free T3 3.12 Current Inpatient Medications Current Inpatient Medications: Current Inpatient Medications Acetaminophen (Acetaminophen 325 Mg Tab) 650 mg PO Q4H PRN PRN Reason: Headache or Minor Fever Stop: 12/28/22 22:33 Al Hydrox/Mg Hydrox/Simethicone (Aluminum/Magnesium Susp 30 Ml Udc) 30 ml PO Q4H PRN PRN Reason: GI Upset Stop: 12/28/22 22:33 Benztropine Mesylate (Benztropine Mesylate 1 Mg Tab) 1 mg PO HS VIVIAN Stop: 12/29/22 21:59 Last Admin: 11/29/22 21:15 Dose: 1 mg Bismuth Subsalicylate (Bismuth Subsalicylate Liqd 236 Ml) 15 ml PO PRN PRN PRN Reason: Loose Stool Stop: 12/28/22 22:33 Haloperidol (Haloperidol 5 Mg Tab) 2.5 mg PO BID PRN PRN Reason: Anxiety/Agitation Stop: 12/29/22 08:59 Haloperidol (Haloperidol 5 Mg Tab) 5 mg PO BID VIVIAN Stop: 12/29/22 08:59 Last Admin: 11/29/22 21:14 Dose: 5 mg Haloperidol (Haloperidol 1 Mg Tab) 3 mg PO BID VIVIAN Stop: 12/29/22 08:59 Last Admin: 11/29/22 21:15 Dose: 3 mg Hydroxyzine HCl (Hydroxyzine Hcl 25 Mg Tab) 25 mg PO Q4H PRN PRN Reason: Anxiety Stop: 12/28/22 22:33 Hydroxyzine HCl (Hydroxyzine Hcl 25 Mg Tab) 50 mg PO HSZ PRN PRN Reason: Insomnia Stop: 12/28/22 22:33 Eastlake Carbonate ([place]lake Carbonate 300 Mg Tab) 300 mg PO DAILY VIVIAN Stop: 12/29/22 09:29 Last Admin: 11/29/22 10:06 Dose: 300 mg [place] Carbonate ([place] Carbonate 300 Mg Tab) 600 mg PO HS VIVIAN Stop: 12/29/22 21:59 Last Admin: 11/29/22 21:16 Dose: 600 mg Magnesium Hydroxide (Magnesium Hydroxide Susp 30 Ml Udc) 30 ml PO DAILY PRN PRN Reason: Constipation Stop: 12/28/22 22:33 Sodium Chloride (Sodium Chloride 0.65% Na Soln 45 Ml ([place])) 1 - 2 sprays NA PRN PRN PRN Reason: Nasal Dryness/Congestion Stop: 12/28/22 22:33 Trazodone HCl (Trazodone Hcl 100 Mg Tab) 200 mg PO HS VIVIAN Stop: 12/29/22 21:59 Last Admin: 11/29/22 21:16 Dose: 200 mg Mental Health & Subst Abuse Tx Psychiatrist Name of Psychiatrist: K[facility] Psychiatrist's Psychiatric Appointment Comment: [address] [place] [address] Therapist Name of Therapist: N/A Document Management Analyst Name of Document Management Analyst: WILLIE Acosta Phone Number for Document Management Analyst: [phone] Post Discharge Appointments Contact Information Contact Information Comment: Harley Bennett CCR- comfort station supervisor 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
[2022-11-30] MEDS: haloperidoL 1 MG TAB PO SCH ×2 (09:45→20:39)
[2022-11-30] MEDS: haloperidoL 5 MG TAB PO SCH ×2 (09:45→20:39)
[2022-11-30] MEDS: haloperidoL 5 MG TAB PO PRN (10:10)
[2022-11-30] MEDS: LITHIUM CARBONATE 300 MG TAB PO SCH ×2 (10:15→20:40)
[2022-11-30] MEDS: cloZAPine 25 MG TAB PO SCH ×2 (11:26→20:38)
[2022-11-30] MEDS ORDERED: POLYETHYLENE (MIRALAX) 17 GM PACK PO PRN (17:11)
[2022-11-30] MEDS ORDERED: BENZTROPINE MESYLATE 1 MG TAB PO PRN (17:13)
[2022-11-30] MEDS: DOCUSATE CALCIUM 240 MG CAPSULE PO SCH (18:56)
[2022-12-01] MEDS: DOCUSATE CALCIUM 240 MG CAPSULE PO SCH (08:35)
[2022-12-01] MEDS: cloZAPine 25 MG TAB PO SCH ×2 (08:35→20:49)
[2022-12-01] MEDS: haloperidoL 5 MG TAB PO SCH ×2 (08:36→20:49)
[2022-12-01] MEDS: haloperidoL 1 MG TAB PO SCH ×2 (08:36→20:49)
[2022-12-01] MEDS: LITHIUM CARBONATE 300 MG TAB PO SCH ×2 (08:37→20:49)
--- NOTE | 2022-12-01 08:46 | Psychiatric Progress Note ---
Date of Service December 01, 2022 Impression / Recommendations Impression Naseem is a 27 year old man with a history of schizoaffective disorder and [facility] and [facility] discharged from the [facility] (during which time his clozapine was discontinued) who was admitted for disorganized behaviors and psychosis. Diagnostically consistent with acute exacerbation of schizoaffective disorder. No evidence for any recent substance use, UDS positive for MDMA but suspect this is a false positive from trazodone use. Possibility for contribution from underlying medical cause as his WBC was slightly elevated but vital signs have been stable, afebrile, no physical complaints. TSH is low so will check free T4. The patient is deemed unstable and requires psychiatric hospitalization for diagnostic clarification, safety and stabilization, medication management and development of further coping skills. MNPR due to acute psychosis and paranoia 12/01/2022: Ongoing acute exacerbation of psychosis with delusions, paranoia and internal stimuli. More depressed today, seems to be driven by ongoing delusions and feeling targeted by the government. Tolerating initiation of clozapine so far. Will increase dose tomorrow given level of psychic distress from delusions. 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 The patient will participate in group, recreational, and milieu therapies and will be offered additional individual and family sessions as clinically appropriate. -Attempt records from [place] to determine past medication trials, would likely benefit from clozapine if he hasn't tried this before and no contraindications -For now will continue Z[place], haldol, trazodone and cogentin -Will get Zenda level tomorrow AM and fasting lipid panel, glucose and HbA1c and free T4 Inventory Assets Strengths: supportive relationships, willing to get treatment Needs: safety and stabilization, medication adjustment, additional coping skills, increased outpatient services Suicide Risk Level Suicide Risk Level: Moderate (q15 min suicide checks) (psychosis with disorganized behaviors and today with intermittent SI and depression but feels safe in the hospital, able to safety contract and agrees to let nursing/staff know should he develop SI or feel unable to remain safe. ) Suicide Risk Level Comments: Risk Factors Assessment Male: Yes : Yes Do You Have Access To A Gun?: No Mental Health Diagnoses: Yes Substance Use Disorders: No Previous Attempt: No Previous Psychiatric Hospitalization: Yes Protective Factors Assessment Employed: No Stable Relationships: Yes Supportive Family: Yes Good Rapport with Provider: Yes Interval History Identifying Information NASEEM MCGEE is a 27-year-old M who currently lives at [facility] with a roommate, has a history of schizoaffective disorder, and was admitted on 11/28/22 23:11 on a 201 voluntary commitment for disorganized behaviors and acute exacerbation of psychosis. Chief Complaint "I'm depressed". Review of Systems Sleep Information Total Hours of Sleep: 7 Sleep Comments: [place] responding to internal stimuli Meal Information Percent Meal Consumed - Breakfast: 100 Percent Meal Consumed - Lunch: 100 Percent Meal Consumed - Dinner: 100 Subjective Subjective Patient was seen & assessed and interval progress reviewed with treatment team nursing and social work. Had some SI last evening. [place] more restless. Expressed feeling lonely. Did attend community meeting and reported feeling "stuck". Slept well even with discontinuation of trazodone. His outpatient CM Octavia attempted to visit him this morning but he declined to meet with her. Tells me this is due to feeling more depressed. He feels depressed due to ongoing beliefs that he is being targeted by government agencies and being injected with chemicals by the [facility]. At certain points during the day expressed SI but adamantly denies any plan for in the hospital nor intent. Feels safe here and continues to go to nurses when he experiences SI. Tearful at times. Denies any side effects from clozapine. No constipation, agrees to monitor this, states in the past on clozapine he had loose stools which he thinks was due to too many stool softeners. Physical Exam Psychiatric Orientation: alert and oriented x 3 Apperance: appropriately dressed and appropriately groomed Eye Contact: + fair eye contact Motor Behavior: no abnormal motor movements Speech: normal rate/rhythm/volume of speech Affect: + depressed affect and + tearful affect Mood: + depressed mood and + anxious mood Thought Process: + circumstantial thought process and + looseness of associations Thought Content: + paranoid, + delusions, + ideas of reference and + thought b roadcasting Suicidal Thoughts: denies suicidal intent; + reports suicidal thoughts (intermittent) and + reports suicidal plan (none for hospital, mentioned using knife if outside the hospital) Homicidal Thoughts: denies homicidal thoughts Hallucinations: + auditory hallucinations; no visual hallucinations Cognition: recent memory grossly intact, remote memory grossly intact, attention grossly intact and language grossly intact Estimated Intelligence: consistent with education level Insight: + limited insight Judgment: + limited judgement Vital Signs (Past 24 Hours) Last Vital Signs Temp 36.5 C 12/01/22 06:29 Pulse 79 12/01/22 06:31 Resp 18 12/01/22 06:29 BP 104/70 12/01/22 06:31 Results & Data ([facility]) Laboratory Results Laboratory Results - last 24 hr 11/30/22 11/30/22 07:11 07:11 Estimat Average Glucose 114 Hemoglobin A1c 5.6 [place] 0.6 Current Inpatient Medications Current Inpatient Medications: Current Inpatient Medications Acetaminophen (Acetaminophen 325 Mg Tab) 650 mg PO Q4H PRN PRN Reason: Headache or Minor Fever Stop: 12/28/22 22:33 Al Hydrox/Mg Hydrox/Simethicone (Aluminum/Magnesium Susp 30 Ml Udc) 30 ml PO Q4H PRN PRN Reason: GI Upset Stop: 12/28/22 22:33 Benztropine Mesylate (Benztropine Mesylate 1 Mg Tab) 1 mg PO DAILY PRN PRN Reason: muscle stiffness Stop: 12/31/22 08:59 Bismuth Subsalicylate (Bismuth Subsalicylate Liqd 236 Ml) 15 ml PO PRN PRN PRN Reason: Loose Stool Stop: 12/28/22 22:33 Clozapine (Clozapine 25 Mg Tab) 12.5 mg PO BID VIVIAN; Protocol Stop: 12/30/22 10:59 Last Admin: 12/01/22 08:35 Dose: 12.5 mg Docusate Calcium (Docusate Calcium 240 Mg Capsule) 240 mg PO DAILY VIVIAN Stop: 12/30/22 17:29 Last Admin: 12/01/22 08:35 Dose: 240 mg Haloperidol (Haloperidol 5 Mg Tab) 2.5 mg PO BID PRN PRN Reason: Anxiety/Agitation Stop: 12/29/22 08:59 Last Admin: 11/30/22 10:10 Dose: 2.5 mg Haloperidol (Haloperidol 5 Mg Tab) 5 mg PO BID VIVIAN Stop: 12/29/22 08:59 Last Admin: 12/01/22 08:36 Dose: 5 mg Haloperidol (Haloperidol 1 Mg Tab) 3 mg PO BID VIVIAN Stop: 12/29/22 08:59 Last Admin: 12/01/22 08:36 Dose: 3 mg Hydroxyzine HCl (Hydroxyzine Hcl 25 Mg Tab) 25 mg PO Q4H PRN PRN Reason: Anxiety Stop: 12/28/22 22:33 Hydroxyzine HCl (Hydroxyzine Hcl 25 Mg Tab) 50 mg PO HSZ PRN PRN Reason: Insomnia Stop: 12/28/22 22:33 Zenda Carbonate (Zenda Carbonate 300 Mg Tab) 300 mg PO DAILY VIVIAN Stop: 12/29/22 09:29 Last Admin: 12/01/22 08:37 Dose: 300 mg Zenda Carbonate (Zenda Carbonate 300 Mg Tab) 600 mg PO HS VIVIAN Stop: 12/29/22 21:59 Last Admin: 11/30/22 20:40 Dose: 600 mg Polyethylene Glycol (Polyethylene (Miralax) 17 Gm Pack) 17 gm PO DAILY PRN PRN Reason: Constipation Stop: 12/30/22 17:10 Sodium Chloride (Sodium Chloride 0.65% Na Soln 45 Ml ([place])) 1 - 2 sprays NA PRN PRN PRN Reason: Nasal Dryness/Congestion Stop: 12/28/22 22:33 Mental Health & Subst Abuse Tx Psychiatrist [facility] Psychiatrist's Psychiatric Appointment Comment: [address] [place] [address] Therapist Name of Therapist: N/A Manager Farm Name of Manager Farm: WILLIE Acosta Phone Number for Manager Farm: [phone] Post Discharge Appointments Contact Information Contact Information Comment: Harley Bennett CCR- whipped topping supervisor 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
[2022-12-01] MEDS: haloperidoL 5 MG TAB PO PRN (14:23)
[2022-12-01] MEDS: LORazepam 0.5 MG TAB PO PRN (15:39)
[2022-12-02] MEDS: cloZAPine 25 MG TAB PO SCH ×3 (08:29→20:25)
[2022-12-02] MEDS: haloperidoL 1 MG TAB PO SCH ×2 (08:30→20:25)
[2022-12-02] MEDS: DOCUSATE CALCIUM 240 MG CAPSULE PO SCH (08:30)
[2022-12-02] MEDS: haloperidoL 5 MG TAB PO SCH ×2 (08:30→20:25)
[2022-12-02] MEDS: LITHIUM CARBONATE 300 MG TAB PO SCH ×2 (08:31→20:25)
--- NOTE | 2022-12-02 08:40 | Psychiatric Progress Note ---
Date of Service December 02, 2022 Impression / Recommendations Impression Naseme is a 27 year old man with a history of schizoaffective disorder and [facility] and [facility] from the [facility] (during which time his clozapine was discontinued) who was admitted for disorganized behaviors and psychosis. Diagnostically consistent with acute exacerbation of schizoaffective disorder. No evidence for any recent substance use, UDS positive for MDMA but suspect this is a false positive from trazodone use. Possibility for contribution from underlying medical cause as his WBC was slightly elevated but vital signs have been stable, afebrile, no physical complaints. TSH is low so will check free T4. The patient is deemed unstable and requires psychiatric hospitalization for diagnostic clarification, safety and stabilization, medication management and development of further coping skills. MNPR due to acute psychosis and paranoia 12/02/2022: Ongoing acute exacerbation of psychosis with delusions, paranoia and internal stimuli. Today more fatigued, likely due to titration of clozapine, no other side effects. Adherent with medications. Responded well to prn ativan after episode of acute psychic distress from delusions causing thoughts of self- harm so will keep this available as needed should this occur again and in an effort to minimize any additional antipsychotic medication. 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 The patient will participate in group, recreational, and milieu therapies and will be offered additional individual and family sessions as clinically appropriate. -Attempt records from [facility] to determine past medication trials, would likely benefit from clozapine if he hasn't tried this before and no contraindications -For now will continue [place], haldol, trazodone and cogentin -Will get [place] level tomorrow AM and fasting lipid panel, glucose and HbA1c and free T4 Inventory Assets Strengths: supportive relationships, willing to get treatment Needs: safety and stabilization, medication adjustment, additional coping skills, increased outpatient services Suicide Risk Level Suicide Risk Level: Moderate (q15 min suicide checks) (psychosis with disorganized behaviors and today with intermittent SI and depression but no SI today, feels safe in the hospital, able to safety contract and agrees to let nursing/staff know should he develop SI or feel unable to remain safe. ) Suicide Risk Level Comments: Risk Factors Assessment Male: Yes : Yes Do You Have Access To A Gun?: No Mental Health Diagnoses: Yes Substance Use Disorders: No Previous Attempt: No Previous Psychiatric Hospitalization: Yes Protective Factors Assessment Employed: No Stable Relationships: Yes Supportive Family: Yes Good Rapport with Provider: Yes Interval History Identifying Information NASEEM MCGEE is a 27-year-old M who currently lives at [facility] with a roommate, has a history of schizoaffective disorder, and was admitted on 11/28/22 23:11 on a 201 voluntary commitment for disorganized behaviors and acute exacerbation of psychosis. Chief Complaint "I'm just tired". Review of Systems Sleep Information Total Hours of Sleep: 7.5 Sleep Comments: Meal Information Percent Meal Consumed - Breakfast: 100 Percent Meal Consumed - Lunch: 90 Percent Meal Consumed - Dinner: 100 Subjective Subjective Patient was seen & assessed and interval progress reviewed with treatment team nursing and social work. Required prn haldol and ativan last evening for increased self-harm thoughts and some odd behaviors including lying on the floor and significant emotional dysregulation. But slept overnight, reports some dreams but doesn't recall these waking him up. This morning took his AM medications and ate breakfast then went back to sleep. Mid-morning he woke up and couldn't recall if he had eaten breakfast but was responsive to reminders about this. Denies any thoughts of SI or self-harm today. Feels his mood is less depressed as he feels "just tired". He doesn't associate the clozapine as contri buting to possible fatigue but we discussed it could be the cause of this and why the titration will be gradual. He remains agreeable to this. Denies any new side effects or physical complaints. Physical Exam Psychiatric Orientation: alert and oriented x 3 Apperance: appropriately dressed and appropriately groomed Eye Contact: + fair eye contact Motor Behavior: no abnormal motor movements Speech: normal rate/rhythm/volume of speech Affect: + flat affect Mood: + depressed mood Thought Process: + circumstantial thought process and + looseness of associations Thought Content: + paranoid, + delusions, + ideas of reference and + thought broadcasting Suicidal Thoughts: denies suicidal plan and denies suicidal intent; + reports suicidal thoughts (intermittent) Homicidal Thoughts: denies homicidal thoughts Hallucinations: + auditory hallucinations; no visual hallucinations Cognition: recent memory grossly intact, remote memory grossly intact, attention grossly intact and language grossly intact Estimated Intelligence: consistent with education level Insight: + limited insight Judgment: + limited judgement Vital Signs (Past 24 Hours) Last Vital Signs Temp 36.5 C 12/02/22 06:34 Pulse 66 12/02/22 06:35 Resp 16 12/02/22 06:34 BP 114/74 12/02/22 06:35 Results & Data ([facility]) Current Inpatient Medications Current Inpatient Medications: Current Inpatient Medications Acetaminophen (Acetaminophen 325 Mg Tab) 650 mg PO Q4H PRN PRN Reason: Headache or Minor Fever Stop: 12/28/22 22:33 Al Hydrox/Mg Hydrox/Simethicone (Aluminum/Magnesium Susp 30 Ml Udc) 30 ml PO Q4H PRN PRN Reason: GI Upset Stop: 12/28/22 22:33 Benztropine Mesylate (Benztropine Mesylate 1 Mg Tab) 1 mg PO DAILY PRN PRN Reason: muscle stiffness Stop: 12/31/22 08:59 Bismuth Subsalicylate (Bismuth Subsalicylate Liqd 236 Ml) 15 ml PO PRN PRN PRN Reason: Loose Stool Stop: 12/28/22 22:33 Clozapine (Clozapine 25 Mg Tab) 25 mg PO BID VIVIAN; Protocol Stop: 01/01/23 08:59 Last Admin: 12/02/22 08:37 Dose: 25 mg Docusate Calcium (Docusate Calcium 240 Mg Capsule) 240 mg PO DAILY VIVIAN Stop: 12/30/22 17:29 Last Admin: 12/02/22 08:30 Dose: 240 mg Haloperidol (Haloperidol 5 Mg Tab) 2.5 mg PO BID PRN PRN Reason: Anxiety/Agitation Stop: 12/29/22 08:59 Last Admin: 12/01/22 14:23 Dose: 2.5 mg Haloperidol (Haloperidol 5 Mg Tab) 5 mg PO BID VIVIAN Stop: 12/29/22 08:59 Last Admin: 12/02/22 08:30 Dose: 5 mg Haloperidol (Haloperidol 1 Mg Tab) 3 mg PO BID VIVIAN Stop: 12/29/22 08:59 Last Admin: 12/02/22 08:30 Dose: 3 mg Hydroxyzine HCl (Hydroxyzine Hcl 25 Mg Tab) 25 mg PO Q4H PRN PRN Reason: Anxiety Stop: 12/28/22 22:33 Hydroxyzine HCl (Hydroxyzine Hcl 25 Mg Tab) 50 mg PO HSZ PRN PRN Reason: Insomnia Stop: 12/28/22 22:33 [place] Carbonate ([place] Carbonate 300 Mg Tab) 300 mg PO DAILY VIVIAN Stop: 12/29/22 09:29 Last Admin: 12/02/22 08:31 Dose: 300 mg [place] Carbonate ([place] Carbonate 300 Mg Tab) 600 mg PO HS VIVIAN Stop: 12/29/22 21:59 Last Admin: 12/01/22 20:49 Dose: 600 mg Lorazepam (Lorazepam 0.5 Mg Tab) 0.5 mg PO Q6H PRN PRN Reason: Anxiety/agitation Stop: 12/31/22 15:35 Last Admin: 12/01/22 15:39 Dose: 0.5 mg Polyethylene Glycol (Polyethylene (Miralax) 17 Gm Pack) 17 gm PO DAILY PRN PRN Reason: Constipation Stop: 12/30/22 17:10 Sodium Chloride (Sodium Chloride 0.65% Na Soln 45 Ml (Power)) 1 - 2 sprays NA PRN PRN PRN Reason: Nasal Dryness/Congestion Stop: 12/28/22 22:33 Mental Health & Subst Abuse Tx Psychiatrist Name of Psychiatrist: [facility] Psychiatrist's Psychiatric Appointment Comment: [address] [place] [address] Therapist Name of Therapist: N/A Medical Center Manager Name of Medical Center Manager: WILLIE Acosta Phone Number for Medical Center Manager: [phone] Post Discharge Appointments Contact Information Contact Information Comment: Harley TILLMAN- concrete paving supervisor 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
[2022-12-02 16:52] LABS: MDA negative; MDEA negative; MDMA (Ecstasy) Urine, Confirm negative
--- NOTE | 2022-12-03 09:04 | Psychiatric Progress Note ---
Date of Service December 03, 2022 Impression / Recommendations Impression Naseem is a 27 year old man with a history of schizoaffective disorder and [facility] and [facility] discharged from the [facility] (during which time his clozapine was discontinued) who was admitted for disorganized behaviors and psychosis. Diagnostically consistent with acute exacerbation of schizoaffective disorder. No evidence for any recent substance use, UDS positive for MDMA but suspect this is a false positive from trazodone use. Possibility for contribution from underlying medical cause as his WBC was slightly elevated but vital signs have been stable, afebrile, no physical complaints. TSH is low so will check free T4. The patient is deemed unstable and requires psychiatric hospitalization for diagnostic clarification, safety and stabilization, medication management and development of further coping skills. MNPR due to acute psychosis and paranoia 12/02/2022: Ongoing acute exacerbation of psychosis with delusions, paranoia and internal stimuli. Today more fatigued, likely due to titration of clozapine, no other side effects. Adherent with medications. Responded well to prn ativan after episode of acute psychic distress from delusions causing thoughts of self- harm so will keep this available as needed should this occur again and in an effort to minimize any additional antipsychotic medication. 12/03/2022: Clozapine has been resumed and is being titrated, with rate limited by sedation. Review of chart indicates previous dose had totaled around 200 mg/day (50 mg QAM, 150 mg QPM) so that would be a reasonable target for titration. Discussed this with pt at length. He can't recall why it was stopped before but says he's certain he had no abnormal blood counts. Li level 11/30/2022 of 0.6 mmol/L, though subtherapeutic for most pts, is consistent with pt's previous levels, indicating that current dose is likely appropriate. (1) Schizoaffective disorder: (2) Psychosis: Plan 12/03/2022: * increase clozapine to 50 mg PO BID first increased dose this evening) * continue LiCO3 300 mg QAM & 600 mg QHS; while this regimen may improve tolerability, it adds complexity vs. single daily dose and evidence suggests, counterintuitively, that single daily dose associated with lower renal risk, so may consolidate later. 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 The patient will participate in group, recreational, and milieu therapies and will be offered additional individual and family sessions as clinically appropriate. -Attempt records from [facility] to determine past medication trials, would likely benefit from clozapine if he hasn't tried this before and no contraindications -For now will continue [place], haldol, trazodone and cogentin -Will get [place] level tomorrow AM and fasting lipid panel, glucose and HbA1c and free T4 Inventory Assets Strengths: supportive relationships, willing to get treatment Needs: safety and stabilization, medication adjustment, additional coping skills, increased outpatient services Suicide Risk Level Suicide Risk Level: Moderate (q15 min suicide checks) (psychosis with disorganized behaviors and today with intermittent SI and depression but no SI today, feels safe in the hospital, able to safety contract and agrees to let nursing/staff know should he develop SI or feel unable to remain safe. ) Suicide Risk Level Comments: Risk Factors Assessment Male: Yes : Yes Do You Have Access To A Gun?: No Mental Health Diagnoses: Yes Substance Use Disorders: No Previous Attempt: No Previous Psychiatric Hospitalization: Yes Protective Factors Assessment Employed: No Stable Relationships: Yes Supportive Family: Yes Good Rapport with Provider: Yes Interval History Identifying Information NASEEM MCGEE is a 27-year-old M who currently lives at [facility] with a roommate, has a history of schizoaffective disorder, and was admitted on 11/28/22 23:11 on a 201 voluntary commitment for disorganized behaviors and acute exacerbation of psychosis. Chief Complaint "I'm not doing too good". Review of Systems Sleep Information Total Hours of Sleep: 7 Meal Information Percent Meal Consumed - Breakfast: 100 Percent Meal Consumed - Lunch: 100 Percent Meal Consumed - Dinner: 100 Subjective Subjective Patient was seen & assessed and interval progress reviewed with treatment team nursing and social work Physical Exam Psychiatric Orientation: alert and oriented x 3 Apperance: appropriately dressed and appropriately groomed Eye Contact: + fair eye contact Motor Behavior: no abnormal motor movements Speech: normal rate/rhythm/volume of speech Affect: + blunted affect Mood: + depressed mood and + anxious mood Thought Process: + circumstantial thought process and + looseness of associations Thought Content: + paranoid, + delusions, + ideas of reference and + thought broadcasting Suicidal Thoughts: denies suicidal plan and denies suicidal intent; + reports suicidal thoughts (intermittent) Homicidal Thoughts: denies homicidal thoughts Hallucinations: + auditory hallucinations; no visual hallucinations Cognition: recent memory grossly intact, remote memory grossly intact, attention grossly intact and language grossly intact Estimated Intelligence: consistent with education level Insight: + limited insight Judgment: + limited judgement Vital Signs (Past 24 Hours) Last Vital Signs Temp 36.7 C 12/03/22 06:35 Pulse 78 12/03/22 06:36 Resp 16 12/03/22 06:35 BP 99/64 L 12/03/22 06:36 Results & Data ([facility]) Laboratory Results Laboratory Results - last 24 hr 11/28/22 17:01 Urine MDEA negative MDMA negative Urine MDMA negative Current Inpatient Medications Current Inpatient Medications: Current Inpatient Medications Acetaminophen (Acetaminophen 325 Mg Tab) 650 mg PO Q4H PRN PRN Reason: Headache or Minor Fever Stop: 12/28/22 22:33 Al Hydrox/Mg Hydrox/Simethicone (Aluminum/Magnesium Susp 30 Ml Udc) 30 ml PO Q4H PRN PRN Reason: GI Upset Stop: 12/28/22 22:33 Benztropine Mesylate (Benztropine Mesylate 1 Mg Tab) 1 mg PO DAILY PRN PRN Reason: muscle stiffness Stop: 12/31/22 08:59 Bismuth Subsalicylate (Bismuth Subsalicylate Liqd 236 Ml) 15 ml PO PRN PRN PRN Reason: Loose Stool Stop: 12/28/22 22:33 Clozapine (Clozapine 25 Mg Tab) 25 mg PO BID VIVIAN; Protocol Stop: 01/01/23 08:59 Last Admin: 12/02/22 20:25 Dose: 25 mg Docusate Calcium (Docusate Calcium 240 Mg Capsule) 240 mg PO DAILY VIVIAN Stop: 12/30/22 17:29 Last Admin: 12/02/22 08:30 Dose: 240 mg Haloperidol (Haloperidol 5 Mg Tab) 2.5 mg PO BID PRN PRN Reason: Anxiety/Agitation Stop: 12/29/22 08:59 Last Admin: 12/01/22 14:23 Dose: 2.5 mg Haloperidol (Haloperidol 5 Mg Tab) 5 mg PO BID VIVIAN Stop: 12/29/22 08:59 Last Admin: 12/02/22 20:25 Dose: 5 mg Haloperidol (Haloperidol 1 Mg Tab) 3 mg PO BID VIVIAN Stop: 12/29/22 08:59 Last Admin: 12/02/22 20:25 Dose: 3 mg Hydroxyzine HCl (Hydroxyzine Hcl 25 Mg Tab) 25 mg PO Q4H PRN PRN Reason: Anxiety Stop: 12/28/22 22:33 Hydroxyzine HCl (Hydroxyzine Hcl 25 Mg Tab) 50 mg PO HSZ PRN PRN Reason: Insomnia Stop: 12/28/22 22:33 [place] Carbonate ([place] Carbonate 300 Mg Tab) 300 mg PO DAILY VIVIAN Stop: 12/29/22 09:29 Last Admin: 12/02/22 08:31 Dose: 300 mg [place] Carbonate ([place] Carbonate 300 Mg Tab) 600 mg PO HS VIVIAN Stop: 12/29/22 21:59 Last Admin: 12/02/22 20:25 Dose: 600 mg Lorazepam (Lorazepam 0.5 Mg Tab) 0.5 mg PO Q6H PRN PRN Reason: Anxiety/agitation Stop: 12/31/22 15:35 Last Admin: 12/01/22 15:39 Dose: 0.5 mg Polyethylene Glycol (Polyethylene (Miralax) 17 Gm Pack) 17 gm PO DAILY PRN PRN Reason: Constipation Stop: 12/30/22 17:10 Sodium Chloride (Sodium Chloride 0.65% Na Soln 45 Ml ([place])) 1 - 2 sprays NA PRN PRN PRN Reason: Nasal Dryness/Congestion Stop: 12/28/22 22:33 Mental Health & Subst Abuse Tx Psychiatrist Name of Psychiatrist: [facility] Psychiatrist's Psychiatric Appointment Comment: [address] [place] [address] Therapist Name of Therapist: N/A Jigger Machine Operator Name of Jigger Machine Operator: WILLIE Acosta Phone Number for Jigger Machine Operator: [phone] Post Discharge Appointments Contact Information Contact Information Comment: Harley TILLMAN- baggage agent supervisor 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
[2022-12-03] MEDS: DOCUSATE CALCIUM 240 MG CAPSULE PO SCH (09:18)
[2022-12-03] MEDS: haloperidoL 1 MG TAB PO SCH ×2 (09:19→20:48)
[2022-12-03] MEDS: haloperidoL 5 MG TAB PO SCH ×2 (09:19→20:48)
[2022-12-03] MEDS: LITHIUM CARBONATE 300 MG TAB PO SCH ×2 (09:20→20:49)
[2022-12-03] MEDS: cloZAPine 25 MG TAB PO SCH ×2 (09:21→20:48)
[2022-12-03] MEDS: LORazepam 0.5 MG TAB PO PRN (19:51)
[2022-12-04] MEDS ORDERED: cloZAPine 25 MG TAB PO STA (08:39)
[2022-12-04] MEDS: DOCUSATE CALCIUM 240 MG CAPSULE PO SCH (08:46)
[2022-12-04] MEDS: haloperidoL 1 MG TAB PO SCH (08:47)
[2022-12-04] MEDS: haloperidoL 5 MG TAB PO SCH ×2 (08:47→21:39)
--- NOTE | 2022-12-04 08:47 | Psychiatric Progress Note ---
Date of Service December 04, 2022 Impression / Recommendations Impression Naseem is a 27 year old man with a history of schizoaffective disorder and [facility] and [facility] discharged from the [facility] (during which time his clozapine was discontinued) who was admitted for disorganized behaviors and psychosis. Diagnostically consistent with acute exacerbation of schizoaffective disorder. No evidence for any recent substance use, UDS positive for MDMA but suspect this is a false positive from trazodone use. Possibility for contribution from underlying medical cause as his WBC was slightly elevated but vital signs have been stable, afebrile, no physical complaints. TSH is low so will check free T4. The patient is deemed unstable and requires psychiatric hospitalization for diagnostic clarification, safety and stabilization, medication management and development of further coping skills. MNPR due to acute psychosis and paranoia 12/02/2022: Ongoing acute exacerbation of psychosis with delusions, paranoia and internal stimuli. Today more fatigued, likely due to titration of clozapine, no other side effects. Adherent with medications. Responded well to prn ativan after episode of acute psychic distress from delusions causing thoughts of self- harm so will keep this available as needed should this occur again and in an effort to minimize any additional antipsychotic medication. 12/03/2022: Clozapine has been resumed and is being titrated, with rate limited by sedation. Review of chart indicates previous dose had totaled around 200 mg/day (50 mg QAM, 150 mg QPM) so that would be a reasonable target for titration. Discussed this with pt at length. He can't recall why it was stopped before but says he's certain he had no abnormal blood counts. Li level 11/30/2022 of 0.6 mmol/L, though subtherapeutic for most pts, is consistent with pt's previous levels, indicating that current dose is likely appropriate. 12/04/2022: "Not as suicidal today", though the thoughts remain fairly constant. Previous clozapine dose has been confirmed as having been 50 mg QAM & 225 mg QHS, so will use that as target for titration. Pt exhibits significant parkinsonism despite benztropine, and pt was on the same 8 mg BID dose of haloperidol when admitted (indicating it's inadequately effective) so will plan to taper haloperidol and focus on clozapine as primary antipsychotic. (1) Schizoaffective disorder: (2) Psychosis: Plan 12/04/2022: * continue titration of clozapine to target of 25 mg QAM & 225 mg QHS, increasing tonight to 50 mg QAM, 125 mg QHS * taper haloperidol from current 8 mg BID, reducing today to 8 mg QM & 5 mg HS, and tomorrow 5 mg BID * plan to eliminate benztropine as soon as haloperidol dose is sufficiently low to permit this. * continue LiCO3 300 mg QAM & 600 mg QHS 12/03/2022: * increase clozapine to 50 mg PO BID (first increased dose this evening) * continue LiCO3 300 mg QAM & 600 mg QHS; while this regimen may improve tolerability, it adds complexity vs. single daily dose and evidence suggests, counterintuitively, that single daily dose associated with lower renal risk, so may consolidate later. 12/02/2022: -Continue clozapine 25mg BID po -Added ativan prn for acute agitation/severe psychic distress 12/01/2022: -Tomorrow increase clozapine to 25mg qAM & 25mg HS 11/30/2022: -Start clozapine 12.5 mg BID -Weekly ANC ordered -Start docusate 250mg daily and miralax 17g prn for constipation -Continue haldol, lithium -Switch to cogentin as needed (given evidence scheduled use may increase risk of TD correction) and discontinue trazodone as starting clozapine 11/29/2022: The patient was admitted to the [facility] ([facility]) on q15 min checks (behavioral with suicide precautions) for safety. The patient will participate in group, recreational, and milieu therapies and will be offered additional individual and family sessions as clinically appropriate. -Attempt records from [place] to determine past medication trials, would likely b enefit from clozapine if he hasn't tried this before and no contraindications -For now will continue [place], haldol, trazodone and cogentin -Will get [place] level tomorrow AM and fasting lipid panel, glucose and HbA1c and free T4 Inventory Assets Strengths: supportive relationships, willing to get treatment Needs: safety and stabilization, medication adjustment, additional coping skills, increased outpatient services Suicide Risk Level Suicide Risk Level: Moderate (q15 min suicide checks) (psychosis with disorganized behaviors and today with intermittent SI and depression but no SI today, feels safe in the hospital, able to safety contract and agrees to let nursing/staff know should he develop SI or feel unable to remain safe. ) Suicide Risk Level Comments: Risk Factors Assessment Male: Yes : Yes Do You Have Access To A Gun?: No Mental Health Diagnoses: Yes Substance Use Disorders: No Previous Attempt: No Previous Psychiatric Hospitalization: Yes Protective Factors Assessment Employed: No Stable Relationships: Yes Supportive Family: Yes Good Rapport with Provider: Yes Interval History Identifying Information NASEEM MCGEE is a 27-year-old M who currently lives at [facility] with a roommate, has a history of schizoaffective disorder, and was admitted on 11/28/22 23:11 on a 201 voluntary commitment for disorganized behaviors and acute exacerbation of psychosis. Chief Complaint "Not as suicidal". Review of Systems Sleep Information Total Hours of Sleep: 7.75 Meal Information Percent Meal Consumed - Breakfast: 100 Percent Meal Consumed - Lunch: 100 Percent Meal Consumed - Dinner: 100 Subjective Subjective Patient was seen & assessed and interval progress reviewed with treatment team nursing and social work Physical Exam Psychiatric Orientation: alert and oriented x 3 Apperance: appropriately dressed and appropriately groomed Eye Contact: good eye contact and + fair eye contact Motor Behavior: no abnormal motor movements Speech: normal rate/rhythm/volume of speech Affect: + depressed affect, + anxious affect, + flat affect, + tearful affect and + blunted affect Mood: + depressed mood and + anxious mood Thought Process: goal directed thought process, + circumstantial thought process and + looseness of associations Thought Content: + paranoid, reality based without delusions, + delusions, + ideas of reference and + thought broadcasting Suicidal Thoughts: denies suicidal plan and denies suicidal intent; + reports suicidal thoughts (intermittent) Homicidal Thoughts: denies homicidal thoughts Hallucinations: + auditory hallucinations; no visual hallucinations Cognition: recent memory grossly intact, remote memory grossly intact, attention grossly intact and language grossly intact Estimated Intelligence: consistent with education level Insight: + limited insight and + fair insight Judgment: + limited judgement and + fair judgement Vital Signs (Past 24 Hours) Last Vital Signs Temp 36.6 C 12/04/22 06:33 Pulse 72 12/04/22 06:34 Resp 16 12/04/22 06:33 BP 110/71 12/04/22 06:34 Results & Data ([facility]) Current Inpatient Medications Current Inpatient Medications: Current Inpatient Medications Acetaminophen (Acetaminophen 325 Mg Tab) 650 mg PO Q4H PRN PRN Reason: Headache or Minor Fever Stop: 12/28/22 22:33 Al Hydrox/Mg Hydrox/Simethicone (Aluminum/Magnesium Susp 30 Ml Udc) 30 ml PO Q4H PRN PRN Reason: GI Upset Stop: 12/28/22 22:33 Benztropine Mesylate (Benztropine Mesylate 1 Mg Tab) 1 mg PO DAILY PRN PRN Reason: muscle stiffness Stop: 12/31/22 08:59 Bismuth Subsalicylate (Bismuth Subsalicylate Liqd 236 Ml) 15 ml PO PRN PRN PRN Reason: Loose Stool Stop: 12/28/22 22:33 Docusate Calcium (Docusate Calcium 240 Mg Capsule) 240 mg PO DAILY VIVIAN Stop: 12/30/22 17:29 Last Admin: 12/03/22 09:18 Dose: 240 mg Haloperidol (Haloperidol 5 Mg Tab) 2.5 mg PO BID PRN PRN Reason: Anxiety/Agitation Stop: 12/29/22 08:59 Last Admin: 12/01/22 14:23 Dose: 2.5 mg Haloperidol (Haloperidol 5 Mg Tab) 5 mg PO BID VIVIAN Stop: 12/29/22 08:59 Last Admin: 12/03/22 20:48 Dose: 5 mg Haloperidol (Haloperidol 1 Mg Tab) 3 mg PO BID VIVIAN Stop: 12/29/22 08:59 Last Admin: 12/03/22 20:48 Dose: 3 mg Hydroxyzine HCl (Hydroxyzine Hcl 25 Mg Tab) 25 mg PO Q4H PRN PRN Reason: Anxiety Stop: 12/28/22 22:33 Hydroxyzine HCl (Hydroxyzine Hcl 25 Mg Tab) 50 mg PO HSZ PRN PRN Reason: Insomnia Stop: 12/28/22 22:33 [place] Carbonate ([place] Carbonate 300 Mg Tab) 300 mg PO DAILY VIVIAN Stop: 12/29/22 09:29 Last Admin: 12/03/22 09:20 Dose: 300 mg [place] Carbonate ([place] Carbonate 300 Mg Tab) 600 mg PO HS VIVIAN Stop: 12/29/22 21:59 Last Admin: 12/03/22 20:49 Dose: 600 mg Lorazepam (Lorazepam 0.5 Mg Tab) 0.5 mg PO Q6H PRN PRN Reason: Anxiety/agitation Stop: 12/31/22 15:35 Last Admin: 12/03/22 19:51 Dose: 0.5 mg Polyethylene Glycol (Polyethylene (Miralax) 17 Gm Pack) 17 gm PO DAILY PRN PRN Reason: Constipation Stop: 12/30/22 17:10 Sodium Chloride (Sodium Chloride 0.65% Na Soln 45 Ml ([place])) 1 - 2 sprays NA PRN PRN PRN Reason: Nasal Dryness/Congestion Stop: 12/28/22 22:33 Mental Health & Subst Abuse Tx Psychiatrist Name of Psychiatrist: Kody [facility] Psychiatrist's Psychiatric Appointment Comment: [address] [place] [address] Therapist Name of Therapist: N/A Sweet Potato Disintegrator Name of Sweet Potato Disintegrator: WILLIE Acosta Phone Number for Sweet Potato Disintegrator: [phone] Post Discharge Appointments Contact Information Contact Information Comment: Harley Bennett CCR- 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
[2022-12-04] MEDS: LITHIUM CARBONATE 300 MG TAB PO SCH ×2 (08:48→21:39)
[2022-12-04] MEDS ORDERED: cloZAPine 25 MG TAB PO SCH ×3 (21:00→22:00)
[2022-12-05] MEDS: LITHIUM CARBONATE 300 MG TAB PO SCH ×2 (08:33→21:08)
[2022-12-05] MEDS: cloZAPine 25 MG TAB PO SCH ×2 (08:33→21:07)
[2022-12-05] MEDS: haloperidoL 5 MG TAB PO SCH ×2 (08:33→21:07)
[2022-12-05] MEDS: DOCUSATE CALCIUM 240 MG CAPSULE PO SCH (08:33)
--- NOTE | 2022-12-05 08:42 | Psychiatric Progress Note ---
Date of Service December 05, 2022 Impression / Recommendations Impression Naseem is a 27 year old man with a history of schizoaffective disorder and [facility] and recently discharged from the [facility] (during which time his clozapine was discontinued) who was admitted for disorganized behaviors and psychosis. Diagnostically consistent with acute exacerbation of schizoaffective disorder. No evidence for any recent substance use, UDS positive for MDMA but suspect this is a false positive from trazodone use. Possibility for contribution from underlying medical cause as his WBC was slightly elevated but vital signs have been stable, afebrile, no physical complaints. TSH is low so will check free T4. The patient is deemed unstable and requires psychiatric hospitalization for diagnostic clarification, safety and stabilization, medication management and development of further coping skills. MNPR due to acute psychosis and paranoia 12/02/2022: Ongoing acute exacerbation of psychosis with delusions, paranoia and internal stimuli. Today more fatigued, likely due to titration of clozapine, no other side effects. Adherent with medications. Responded well to prn ativan after episode of acute psychic distress from delusions causing thoughts of self- harm so will keep this available as needed should this occur again and in an effort to minimize any additional antipsychotic medication. 12/03/2022: Clozapine has been resumed and is being titrated, with rate limited by sedation. Review of chart indicates previous dose had totaled around 200 mg/day (50 mg QAM, 150 mg QPM) so that would be a reasonable target for titration. Discussed this with pt at length. He can't recall why it was stopped before but says he's certain he had no abnormal blood counts. Li level 11/30/2022 of 0.6 mmol/L, though subtherapeutic for most pts, is consistent with pt's previous levels, indicating that current dose is likely appropriate. 12/04/2022: "Not as suicidal today", though the thoughts remain fairly constant. Previous clozapine dose has been confirmed as having been 50 mg QAM & 225 mg QHS, so will use that as target for titration. Pt exhibits significant parkinsonism despite benztropine, and pt was on the same 8 mg BID dose of haloperidol when admitted (indicating it's inadequately effective) so will plan to taper haloperidol and focus on clozapine as primary antipsychotic. 12/05/2022: "A lot better today". Staff note that pt was out and participating in the milieu yesterday evening, voicing less suicidality. No evidence of any adverse effect including somnolence following increase of clozapine to 125 mg last night - was first out of his room for breakfast this morning. 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 (1) Schizoaffective disorder: (2) Psychosis: Plan 12/05/2022: * increase clozapine to 50 mg QAM & 225 mg QHS, plan further titration (to 300- 400 mg/day) * continue haloperidol 5 mg BID, plan further taper and ideally elimination * continue LiCO3 300 mg QAM & 600 mg QHS * try to obtain data from outpatient service to help understand if pt needs such a big difference between AM and PM olanzapine doses and what evidence there is for his needing both olanzapine and haloperidol 12/04/2022: * continue titration of clozapine to target of 25 mg QAM & 225 mg QHS, increasing tonight to 50 mg QAM, 125 mg QHS * taper haloperidol from current 8 mg BID, reducing today to 8 mg QM & 5 mg HS, and tomorrow 5 mg BID * plan to eliminate benztropine as soon as haloperidol dose is sufficiently low to permit this. * continue LiCO3 300 mg QAM & 600 mg QHS 12/03/2022: * increase clozapine to 50 mg PO BID (first increased dose this evening) * continue LiCO3 300 mg QAM & 600 mg QHS; while this regimen may improve tolerability, it adds complexity vs. single daily dose and evidence suggests, counterintuitively, that single daily dose associated with lower renal risk, so may consolidate later. 12/02/2022: -Continue clozapine 25mg BID po -Added ativan prn for acute agitation/severe psychic distress 12/01/2022: -Tomorrow increase clozapine to 25mg qAM & 25mg HS 11/30/2022: -Start clozapine 12.5 mg BID -Weekly ANC ordered -Start docusate 250mg daily and miralax 17g prn for constipation -Continue haldol, lithium -Switch to cogentin as needed (given evidence scheduled use may increase risk of TD moth exterminator) and discontinue trazodone as starting clozapine 11/29/2022: The patient was admitted to the [facility] (locked inpatient mental health unit) on q15 min checks (behavioral with suicide precautions) for safety. The patient will participate in group, recreational, and milieu therapies and will be offered additional individual and family sessions as clinically appropriate. -Attempt records from [place] to determine past medication trials, would likely benefit from clozapine if he hasn't tried this before and no contraindications -For now will continue [place], haldol, trazodone and cogentin -Will get [place] level tomorrow AM and fasting lipid panel, glucose and HbA1c and free T4 Inventory Assets Strengths: supportive relationships, willing to get treatment Needs: safety and stabilization, medication adjustment, additional coping skills, increased outpatient services Suicide Risk Level Suicide Risk Level: Moderate (q15 min suicide checks) (psychosis with disorganized behaviors and today with intermittent SI and depression but no SI today, feels safe in the hospital, able to safety contract and agrees to let nursing/staff know should he develop SI or feel unable to remain safe. ) Suicide Risk Level Comments: Risk Factors Assessment Male: Yes : Yes Do You Have Access To A Gun?: No Mental Health Diagnoses: Yes Substance Use Disorders: No Previous Attempt: No Previous Psychiatric Hospitalization: Yes Protective Factors Assessment Employed: No Stable Relationships: Yes Supportive Family: Yes Good Rapport with Provider: Yes Interval History Identifying Information NASEEM MCGEE is a 27-year-old M who currently lives at [facility] with a roommate, has a history of schizoaffective disorder, and was admitted on 11/28/22 23:11 on a 201 voluntary commitment for disorganized behaviors and acute exacerbation of psychosis. Chief Complaint "A lot better today". Review of Systems Sleep Information Total Hours of Sleep: 8.25 Meal Information Percent Meal Consumed - Breakfast: 100 Percent Meal Consumed - Lunch: 100 Percent Meal Consumed - Dinner: 100 Subjective Subjective Patient was seen & assessed and interval progress reviewed with treatment team nursing and social work Physical Exam Psychiatric Orientation: alert and oriented x 3 Apperance: appropriately dressed and appropriately groomed Eye Contact: good eye contact Motor Behavior: no abnormal motor movements Speech: normal rate/rhythm/volume of speech Affect: + constricted affect Mood: + depressed mood and + anxious mood Thought Process: + circumstantial thought process and + concrete thought process Thought Content: + paranoid Suicidal Thoughts: denies suicidal thoughts (intermittent), denies suicidal plan and denies suicidal intent Homicidal Thoughts: denies homicidal thoughts Hallucinations: + auditory hallucinations; no visual hallucinations Cognition: recent memory grossly intact, remote memory grossly intact, attention grossly intact and language grossly intact Estimated Intelligence: consistent with education level Insight: + limited insight Judgment: + fair judgement Vital Signs (Past 24 Hours) Last Vital Signs Temp 36.6 C 12/05/22 06:32 Pulse 81 12/05/22 06:33 Resp 16 12/05/22 06:32 BP 115/73 12/05/22 06:33 Results & Data ([facility]) Current Inpatient Medications Current Inpatient Medications: Current Inpatient Medications Acetaminophen (Acetaminophen 325 Mg Tab) 650 mg PO Q4H PRN PRN Reason: Headache or Minor Fever Stop: 12/28/22 22:33 Al Hydrox/Mg Hydrox/Simethicone (Aluminum/Magnesium Susp 30 Ml Udc) 30 ml PO Q4H PRN PRN Reason: GI Upset Stop: 12/28/22 22:33 Benztropine Mesylate (Benztropine Mesylate 1 Mg Tab) 1 mg PO DAILY PRN PRN Reason: muscle stiffness Stop: 12/31/22 08:59 Bismuth Subsalicylate (Bismuth Subsalicylate Liqd 236 Ml) 15 ml PO PRN PRN PRN Reason: Loose Stool Stop: 12/28/22 22:33 Clozapine (Clozapine 25 Mg Tab) 50 mg PO QAM VIVIAN Stop: 01/04/23 08:59 Last Admin: 12/05/22 08:33 Dose: 50 mg Clozapine (Clozapine 25 Mg Tab) 125 mg PO HS [facility] Stop: 01/03/23 21:59 Last Admin: 12/04/22 21:40 Dose: 125 mg Docusate Calcium (Docusate Calcium 240 Mg Capsule) 240 mg PO DAILY VIVIAN Stop: 12/30/22 17:29 Last Admin: 12/05/22 08:33 Dose: 240 mg Haloperidol (Haloperidol 5 Mg Tab) 2.5 mg PO BID PRN PRN Reason: Anxiety/Agitation Stop: 12/29/22 08:59 Last Admin: 12/01/22 14:23 Dose: 2.5 mg Haloperidol (Haloperidol 5 Mg Tab) 5 mg PO BID VIVIAN Stop: 12/29/22 08:59 Last Admin: 12/05/22 08:33 Dose: 5 mg Hydroxyzine HCl (Hydroxyzine Hcl 25 Mg Tab) 25 mg PO Q4H PRN PRN Reason: Anxiety Stop: 12/28/22 22:33 Hydroxyzine HCl (Hydroxyzine Hcl 25 Mg Tab) 50 mg PO HSZ PRN PRN Reason: Insomnia Stop: 12/28/22 22:33 [place] Carbonate ([place] Carbonate 300 Mg Tab) 300 mg PO DAILY VIVIAN Stop: 12/29/22 09:29 Last Admin: 12/05/22 08:33 Dose: 300 mg [place] Carbonate ([place] Carbonate 300 Mg Tab) 600 mg PO HS VIVIAN Stop: 12/29/22 21:59 Last Admin: 12/04/22 21:39 Dose: 600 mg Lorazepam (Lorazepam 0.5 Mg Tab) 0.5 mg PO Q6H PRN PRN Reason: Anxiety/agitation Stop: 12/31/22 15:35 Last Admin: 12/03/22 19:51 Dose: 0.5 mg Polyethylene Glycol (Polyethylene (Miralax) 17 Gm Pack) 17 gm PO DAILY PRN PRN Reason: Constipation Stop: 12/30/22 17:10 Sodium Chloride (Sodium Chloride 0.65% Na Soln 45 Ml ([place])) 1 - 2 sprays NA PRN PRN PRN Reason: Nasal Dryness/Congestion Stop: 12/28/22 22:33 Mental Health & Subst Abuse Tx Psychiatrist Name of Psychiatrist: Kody Richardson Psychiatrist's Psychiatric Appointment Comment: [address] [place] [address] Therapist Name of Therapist: N/A General Maintenance Technician Name of General Maintenance Technician: WILLIE Acosta Phone Number for General Maintenance Technician: [phone] Post Discharge Appointments Contact Information Contact Information Comment: Harley TILLMAN- material handling warehouse supervisor 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
[2022-12-05] MEDS: ACETAMINOPHEN 325 MG TAB PO PRN (18:34)
[2022-12-05] MEDS: cloZAPine 100 MG TAB PO SCH (21:08)
--- NOTE | 2022-12-06 07:31 | Psychiatric Progress Note ---
Date of Service December 06, 2022 Impression / Recommendations Impression Naseem is a 27 year old man with a history of schizoaffective disorder [facility] and [facility] from the [facility] (during which time his clozapine was discontinued) who was admitted for disorganized behaviors and psychosis. Diagnostically consistent with acute exacerbation of schizoaffective disorder. No evidence for any recent substance use, UDS positive for MDMA but suspect this is a false positive from trazodone use. Possibility for contribution from underlying medical cause as his WBC was slightly elevated but vital signs have been stable, afebrile, no physical complaints. TSH is low so will check free T4. The patient is deemed unstable and requires psychiatric hospitalization for diagnostic clarification, safety and stabilization, medication management and development of further coping skills. MNPR due to acute psychosis and paranoia 12/02/2022: Ongoing acute exacerbation of psychosis with delusions, paranoia and internal stimuli. Today more fatigued, likely due to titration of clozapine, no other side effects. Adherent with medications. Responded well to prn ativan after episode of acute psychic distress from delusions causing thoughts of self- harm so will keep this available as needed should this occur again and in an effort to minimize any additional antipsychotic medication. 12/03/2022: Clozapine has been resumed and is being titrated, with rate limited by sedation. Review of chart indicates previous dose had totaled around 200 mg/day (50 mg QAM, 150 mg QPM) so that would be a reasonable target for titration. Discussed this with pt at length. He can't recall why it was stopped before but says he's certain he had no abnormal blood counts. Li level 11/30/2022 of 0.6 mmol/L, though subtherapeutic for most pts, is consistent with pt's previous levels, indicating that current dose is likely appropriate. 12/04/2022: "Not as suicidal today", though the thoughts remain fairly constant. Previous clozapine dose has been confirmed as having been 50 mg QAM & 225 mg QHS, so will use that as target for titration. Pt exhibits significant parkinsonism despite benztropine, and pt was on the same 8 mg BID dose of haloperidol when admitted (indicating it's inadequately effective) so will plan to taper haloperidol and focus on clozapine as primary antipsychotic. 12/05/2022: "A lot better today". Staff note that pt was out and participating in the milieu yesterday evening, voicing less suicidality. No evidence of any adverse effect including somnolence following increase of clozapine to 125 mg last night - was first out of his room for breakfast this morning. 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 12/06/2022: Pt tells me "the suicidal thoughts are gone" completely. He has been parti cipating very well and has been observed clearly enjoying activities. He says "the hallucinations are less". Feels somewhat sleepy today after last night's increase in clozapine dose. Discussed with pt continuing to reduce haloperidol with a goal of clozapine monotherapy, which would likely be most effective with more evenly-divided dosing. (1) Schizoaffective disorder: (2) Psychosis: Plan 12/06/2002: * continue clozapine 50 mg QAM & 225 mg QHS; anticipate titration to higher AM dose soon. * reduce haloperidol to 3 mg BID * continue LiCO3 300 mg QAM & 600 mg QHS 12/05/2022: * increase clozapine to 50 mg QAM & 225 mg QHS, plan further titration (to 300- 400 mg/day) * continue haloperidol 5 mg BID, plan further taper and ideally elimination * continue LiCO3 300 mg QAM & 600 mg QHS * try to obtain data from outpatient service to help understand if pt needs such a big difference between AM and PM olanzapine doses and what evidence there is for his needing both olanzapine and haloperidol 12/04/2022: * continue titration of clozapine to target of 25 mg QAM & 225 mg QHS, increasing tonight to 50 mg QAM, 125 mg QHS * taper haloperidol from current 8 mg BID, reducing today to 8 mg QM & 5 mg HS, and tomorrow 5 mg BID * plan to eliminate benztropine as soon as haloperidol dose is sufficiently low to permit this. * continue LiCO3 300 mg QAM & 600 mg QHS 12/03/2022: * increase clozapine to 50 mg PO BID (first increased dose this evening) * continue LiCO3 300 mg QAM & 600 mg QHS; while this regimen may improve tolerability, it adds complexity vs. single daily dose and evidence suggests, counterintuitively, that single daily dose associated with lower renal risk, so may consolidate later. 12/02/2022: -Continue clozapine 25mg BID po -Added ativan prn for acute agitation/severe psychic distress 12/01/2022: -Tomorrow increase clozapine to 25mg qAM & 25mg HS 11/30/2022: -Start clozapine 12.5 mg BID -Weekly ANC ordered -Start docusate 250mg daily and miralax 17g prn for constipation -Continue haldol, lithium -Switch to cogentin as needed (given evidence scheduled use may increase risk of TD long term care phlebotomist) and discontinue trazodone as starting clozapine 11/29/2022: The patient was admitted to the [facility] ([facility] unit) on q15 min checks (behavioral with suicide precautions) for safety. The patient will participate in group, recreational, and milieu therapies and will be offered additional individual and family sessions as clinically appropriate. -Attempt records from [facility] to determine past medication trials, would likely benefit from clozapine if he hasn't tried this before and no contraindications -For now will continue [place], haldol, trazodone and cogentin -Will get [place] level tomorrow AM and fasting lipid panel, glucose and HbA1c and free T4 Inventory Assets Strengths: supportive relationships, willing to get treatment Needs: safety and stabilization, medication adjustment, additional coping skills, increased outpatient services Suicide Risk Level Suicide Risk Level: Moderate (q15 min suicide checks) (psychosis with disorganized behaviors and today with intermittent SI and depression but no SI t soledad, feels safe in the hospital, able to safety contract and agrees to let nursing/staff know should he develop SI or feel unable to remain safe. ) Suicide Risk Level Comments: Risk Factors Assessment Male: Yes : Yes Do You Have Access To A Gun?: No Mental Health Diagnoses: Yes Substance Use Disorders: No Previous Attempt: No Previous Psychiatric Hospitalization: Yes Protective Factors Assessment Employed: No Stable Relationships: Yes Supportive Family: Yes Good Rapport with Provider: Yes Interval History Identifying Information NASEEM MCGEE is a 27-year-old M who currently lives at [facility] with a roommate, has a history of schizoaffective disorder, and was admitted on 11/28/22 23:11 on a 201 voluntary commitment for disorganized behaviors and a cute exacerbation of psychosis. Chief Complaint "I think I'm getting better. The suicidal thoughts are gone". Review of Systems Sleep Information Total Hours of Sleep: 7.5 Meal Information Percent Meal Consumed - Breakfast: 100 Percent Meal Consumed - Lunch: 100 Percent Meal Consumed - Dinner: 100 Subjective Subjective Patient was seen & assessed and interval progress reviewed with treatment team nursing and social work Physical Exam Psychiatric Orientation: alert and oriented x 3 Apperance: appropriately dressed and appropriately groomed Eye Contact: good eye contact Motor Behavior: no abnormal motor movements Speech: normal rate/rhythm/volume of speech Affect: + constricted affect Mood: + depressed mood and + anxious mood Thought Process: goal directed thought process and + concrete thought process Thought Content: reality based without delusions Suicidal Thoughts: denies suicidal thoughts (intermittent), denies suicidal plan and denies suicidal intent Homicidal Thoughts: denies homicidal thoughts Hallucinations: + auditory hallucinations; no visual hallucinations Cognition: recent memory grossly intact, remote memory grossly intact, attention grossly intact and language grossly intact Estimated Intelligence: consistent with education level Insight: + fair insight Judgment: + fair judgement Vital Signs (Past 24 Hours) Last Vital Signs Temp 36.9 C 12/06/22 06:33 Pulse 97 H 12/06/22 06:34 Resp 16 12/06/22 06:33 BP 117/79 12/06/22 06:34 Results & Data ([facility]) Current Inpatient Medications Current Inpatient Medications: Current Inpatient Medications Acetaminophen (Acetaminophen 325 Mg Tab) 650 mg PO Q4H PRN PRN Reason: Headache or Minor Fever Stop: 12/28/22 22:33 Last Admin: 12/05/22 18:34 Dose: 650 mg Al Hydrox/Mg Hydrox/Simethicone (Aluminum/Magnesium Susp 30 Ml Udc) 30 ml PO Q4H PRN PRN Reason: GI Upset Stop: 12/28/22 22:33 Benztropine Mesylate (Benztropine Mesylate 1 Mg Tab) 1 mg PO DAILY PRN PRN Reason: muscle stiffness Stop: 12/31/22 08:59 Bismuth Subsalicylate (Bismuth Subsalicylate Liqd 236 Ml) 15 ml PO PRN PRN PRN Reason: Loose Stool Stop: 12/28/22 22:33 Clozapine (Clozapine 25 Mg Tab) 50 mg PO QAM VIVIAN Stop: 01/04/23 08:59 Last Admin: 12/05/22 08:33 Dose: 50 mg Clozapine (Clozapine 100 Mg Tab) 200 mg PO HS VIVIAN Stop: 01/04/23 21:59 Last Admin: 12/05/22 21:08 Dose: 200 mg Clozapine (Clozapine 25 Mg Tab) 25 mg PO HS VIVIAN Stop: 01/04/23 21:59 Last Admin: 12/05/22 21:07 Dose: 25 mg Docusate Calcium (Docusate Calcium 240 Mg Capsule) 240 mg PO DAILY VIVIAN Stop: 12/30/22 17:29 Last Admin: 12/05/22 08:33 Dose: 240 mg Haloperidol (Haloperidol 5 Mg Tab) 2.5 mg PO BID PRN PRN Reason: Anxiety/Agitation Stop: 12/29/22 08:59 Last Admin: 12/01/22 14:23 Dose: 2.5 mg Haloperidol (Haloperidol 5 Mg Tab) 5 mg PO BID VIVIAN Stop: 12/29/22 08:59 Last Admin: 12/05/22 21:07 Dose: 5 mg Hydroxyzine HCl (Hydroxyzine Hcl 25 Mg Tab) 25 mg PO Q4H PRN PRN Reason: Anxiety Stop: 12/28/22 22:33 Hydroxyzine HCl (Hydroxyzine Hcl 25 Mg Tab) 50 mg PO HSZ PRN PRN Reason: Insomnia Stop: 12/28/22 22:33 [place] Carbonate ([place] Carbonate 300 Mg Tab) 300 mg PO DAILY VIVIAN Stop: 12/29/22 09:29 Last Admin: 12/05/22 08:33 Dose: 300 mg [place] Carbonate ([place] Carbonate 300 Mg Tab) 600 mg PO [facility] Stop: 12/29/22 21:59 Last Admin: 12/05/22 21:08 Dose: 600 mg Lorazepam (Lorazepam 0.5 Mg Tab) 0.5 mg PO Q6H PRN PRN Reason: Anxiety/agitation Stop: 12/31/22 15:35 Last Admin: 12/03/22 19:51 Dose: 0.5 mg Polyethylene Glycol (Polyethylene (Miralax) 17 Gm Pack) 17 gm PO DAILY PRN PRN Reason: Constipation Stop: 12/30/22 17:10 Sodium Chloride (Sodium Chloride 0.65% Na Soln 45 Ml ([place])) 1 - 2 sprays NA PRN PRN PRN Reason: Nasal Dryness/Congestion Stop: 12/28/22 22:33 Mental Health & Subst Abuse Tx Psychiatrist Name of Psychiatrist: Kody [facility] Psychiatrist's Psychiatric Appointment Comment: [address] [place] [address] Therapist Name of Therapist: N/A Clinical Training Specialist Name of Clinical Training Specialist: WILLIE Acosta Phone Number for Clinical Training Specialist: [phone] Post Discharge Appointments Primary Care Physician Name Of Family Doctor/PCP: Kody Richardson Primary Care Provider Appointment Comment: [address] [place] [address] Contact Information Contact Information Comment: 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
[2022-12-06] MEDS: DOCUSATE CALCIUM 240 MG CAPSULE PO SCH (09:10)
[2022-12-06] MEDS: cloZAPine 25 MG TAB PO SCH ×2 (09:10→20:47)
[2022-12-06] MEDS: haloperidoL 5 MG TAB PO SCH (09:10)
[2022-12-06] MEDS: LITHIUM CARBONATE 300 MG TAB PO SCH ×2 (09:11→20:47)
[2022-12-06] MEDS: cloZAPine 100 MG TAB PO SCH (20:46)
[2022-12-06] MEDS: haloperidoL 1 MG TAB PO SCH (20:46)
[2022-12-07] MEDS: DOCUSATE CALCIUM 240 MG CAPSULE PO SCH (08:27)
[2022-12-07] MEDS: cloZAPine 25 MG TAB PO SCH ×2 (08:27→21:07)
[2022-12-07] MEDS: LITHIUM CARBONATE 300 MG TAB PO SCH ×2 (08:28→21:07)
[2022-12-07] MEDS: haloperidoL 1 MG TAB PO SCH ×2 (08:28→21:07)
[2022-12-07 09:20] LABS: Basophils # (auto) 0.08 K/uL (0-0.2); Basophils % (auto) 0.8 %; Eosinophils # (auto) 0.32 K/uL (0-0.50); Eosinophils % (auto) 3.2 %; Immature Granulocytes # (auto) 0.08 K/uL (0.01-0.20); Immature Granulocytes % (auto) 0.8 %; Lymphocytes # (auto) 2.32 K/uL (1.2-3.4); Monocytes # (auto) 0.71 K/uL (0.11-0.59); Neutrophils # (auto) 6.59 K/uL (1.40-6.50); Neutrophils % (auto) 65.2 %
--- NOTE | 2022-12-07 09:37 | Psychiatric Progress Note ---
Date of Service December 07, 2022 Impression / Recommendations Impression Naseem is a 27 year old man with a history of schizoaffective disorder and [facility] and recently discharged from the [facility] (during which time his clozapine was discontinued) who was admitted for disorganized behaviors and psychosis. Diagnostically consistent with acute exacerbation of schizoaffective disorder. No evidence for any recent substance use, UDS positive for MDMA but suspect this is a false positive from trazodone use. Possibility for contribution from underlying medical cause as his WBC was slightly elevated but vital signs have been stable, afebrile, no physical complaints. TSH is low so will check free T4. The patient is deemed unstable and requires psychiatric hospitalization for diagnostic clarification, safety and stabilization, medication management and development of further coping skills. MNPR due to acute psychosis and paranoia 12/02/2022: Ongoing acute exacerbation of psychosis with delusions, paranoia and internal stimuli. Today more fatigued, likely due to titration of clozapine, no other side effects. Adherent with medications. Responded well to prn ativan after episode of acute psychic distress from delusions causing thoughts of self- harm so will keep this available as needed should this occur again and in an effort to minimize any additional antipsychotic medication. 12/03/2022: Clozapine has been resumed and is being titrated, with rate limited by sedation. Review of chart indicates previous dose had totaled around 200 mg/day (50 mg QAM, 150 mg QPM) so that would be a reasonable target for titration. Discussed this with pt at length. He can't recall why it was stopped before but says he's certain he had no abnormal blood counts. Li level 11/30/2022 of 0.6 mmol/L, though subtherapeutic for most pts, is consistent with pt's previous levels, indicating that current dose is likely appropriate. 12/04/2022: "Not as suicidal today", though the thoughts remain fairly constant. Previous clozapine dose has been confirmed as having been 50 mg QAM & 225 mg QHS, so will use that as target for titration. Pt exhibits significant parkinsonism despite benztropine, and pt was on the same 8 mg BID dose of haloperidol when admitted (indicating it's inadequately effective) so will plan to taper haloperidol and focus on clozapine as primary antipsychotic. 12/05/2022: "A lot better today". Staff note that pt was out and participating in the milieu yesterday evening, voicing less suicidality. No evidence of any adverse effect including somnolence following increase of clozapine to 125 mg last night - was first out of his room for breakfast this morning. 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 12/06/2022: Pt tells me "the suicidal thoughts are gone" completely. He has been participa ting very well and has been observed clearly enjoying activities. He says "the hallucinations are less". Feels somewhat sleepy today after last night's increase in clozapine dose. Discussed with pt continuing to reduce haloperidol with a goal of clozapine monotherapy, which would likely be most effective with more evenly-divided dosing. 12/07/2022: Continues to report "the suicidal thoughts are gone". He reports he's "barely hallucinating". He is, if anything, more engaged today and has clearly been enjoying some games. Reports some dizziness. While he does not associate this with postural changes, it could well be hypotension from clozapine (which is one of its most common side effects). Discussed further reduction in haloperidol. ANC today 6.59. (1) Schizoaffective disorder: (2) Psychosis: Plan 12/07/2022: * continue clozapine 50 mg QAM & 225 mg QHS; delay titration to higher AM dose until dizziness has resolved. * reduce haloperidol to 2 mg BID, anticipating continued taper * continue LiCO3 300 mg QAM & 600 mg QHS 12/06/2002: * continue clozapine 50 mg QAM & 225 mg QHS; anticipate titration to higher AM dose soon. * reduce haloperidol to 3 mg BID * continue LiCO3 300 mg QAM & 600 mg QHS 12/05/2022: * increase clozapine to 50 mg QAM & 225 mg QHS, plan further titration (to 300- 400 mg/day) * continue haloperidol 5 mg BID, plan further taper and ideally elimination * continue LiCO3 300 mg QAM & 600 mg QHS * try to obtain data from outpatient service to help understand if pt needs such a big difference between AM and PM olanzapine doses and what evidence there is for his needing both olanzapine and haloperidol 12/04/2022: * continue titration of clozapine to target of 25 mg QAM & 225 mg QHS, increasing tonight to 50 mg QAM, 125 mg QHS * taper haloperidol from current 8 mg BID, reducing today to 8 mg QM & 5 mg HS, and tomorrow 5 mg BID * plan to eliminate benztropine as soon as haloperidol dose is sufficiently low to permit this. * continue LiCO3 300 mg QAM & 600 mg QHS 12/03/2022: * increase clozapine to 50 mg PO BID (first increased dose this evening) * continue LiCO3 300 mg QAM & 600 mg QHS; while this regimen may improve tolerability, it adds complexity vs. single daily dose and evidence suggests, counterintuitively, that single daily dose associated with lower renal risk, so may consolidate later. 12/02/2022: -Continue clozapine 25mg BID po -Added ativan prn for acute agitation/severe psychic distress 12/01/2022: -Tomorrow increase clozapine to 25mg qAM & 25mg HS 11/30/2022: -Start clozapine 12.5 mg BID -Weekly ANC ordered -Start docusate 250mg daily and miralax 17g prn for constipation -Continue haldol, lithium -Switch to cogentin as needed (given evidence scheduled use may increase risk of TD fpc) and discontinue trazodone as starting clozapine 11/29/2022: The patient was admitted to the [facility] ([facility] inpatient mental health unit) on q15 min checks (behavioral with suicide precautions) for safety. The patient will participate in group, recreational, and milieu therapies and will be offered additional individual and family sessions as clinically appropriate. -Attempt records from [place] to determine past medication trials, would likely benefit from clozapine if he hasn't tried this before and no contraindications -For now will continue [place], haldol, trazodone and cogentin -Will get [place] level tomorrow AM and fasting lipid panel, glucose and HbA1c and free T4 Inventory Assets Strengths: supportive relationships, willing to get treatment Needs: safety and stabilization, medication adjustment, additional coping skills, increased outpatient services Suicide Risk Level Suicide Risk Level: Low (q15 min observation checks) Suicide Risk Level Comments: no SI, feels safe in the hospital, able to safety contract and agrees to let nursing/staff know should he develop SI or feel unable to remain safe. Risk Factors Assessment Male: Yes : Yes Do You Have Access To A Gun?: No Mental Health Diagnoses: Yes Substance Use Disorders: No Previous Attempt: No Previous Psychiatric Hospitalization: Yes Protective Factors Assessment Employed: No Stable Relationships: Yes Supportive Family: Yes Good Rapport with Provider: Yes Interval History Identifying Information NASEEM MCGEE is a 27-year-old M who currently lives at [facility] with a roommate, has a history of schizoaffective disorder, and was admitted on 11/28/22 23:11 on a 201 voluntary commitment for disorganized behaviors and acute exacerbation of psychosis. Chief Complaint "Things are good". Review of Systems Sleep Information Total Hours of Sleep: 8.25 Meal Information Percent Meal Consumed - Breakfast: 100 Percent Meal Consumed - Lunch: 100 Percent Meal Consumed - Dinner: 100 Subjective Subjective Patient was seen & assessed and interval progress reviewed with treatment team nursing and social work Physical Exam Psychiatric Orientation: alert and oriented x 3 Apperance: appropriately dressed and appropriately groomed Eye Contact: good eye contact Motor Behavior: no abnormal motor movements Speech: normal rate/rhythm/volume of speech Affect: + constricted affect Mood: + depressed mood and + anxious mood Thought Process: + circumstantial thought process and + concrete thought process Thought Content: reality based without delusions Suicidal Thoughts: denies suicidal thoughts (intermittent), denies suicidal plan and denies suicidal intent Homicidal Thoughts: denies homicidal thoughts Hallucinations: + auditory hallucinations; no visual hallucinations Cognition: recent memory grossly intact, remote memory grossly intact, attention grossly intact and language grossly intact Estimated Intelligence: consistent with education level Insight: + fair insight Judgment: + fair judgement Vital Signs (Past 24 Hours) Last Vital Signs Temp 36.4 C L 12/07/22 06:35 Pulse 99 H 12/07/22 06:35 Resp 16 12/07/22 06:35 BP 112/70 12/07/22 06:35 Results & Data ([facility]) Laboratory Results Laboratory Results - last 24 hr 12/07/22 08:50 WBC 10.10 Immature Gran % (Auto) 0.8 Neut % (Auto) 65.2 Lymph % (Auto) 23.0 [place] % (Auto) 7.0 Eos % (Auto) 3.2 Baso % (Auto) 0.8 Neut # (Auto) 6.59 H Lymph # (Auto) 2.32 [place] # (Auto) 0.71 H Eos # (Auto) 0.32 Baso # (Auto) 0.08 Immature Gran # (Auto) 0.08 Current Inpatient Medications Current Inpatient Medications: Current Inpatient Medications Acetaminophen (Acetaminophen 325 Mg Tab) 650 mg PO Q4H PRN PRN Reason: Headache or Minor Fever Stop: 12/28/22 22:33 Last Admin: 12/05/22 18:34 Dose: 650 mg Al Hydrox/Mg Hydrox/Simethicone (Aluminum/Magnesium Susp 30 Ml Udc) 30 ml PO Q4H PRN PRN Reason: GI Upset Stop: 12/28/22 22:33 Benztropine Mesylate (Benztropine Mesylate 1 Mg Tab) 1 mg PO DAILY PRN PRN Reason: muscle stiffness Stop: 12/31/22 08:59 Bismuth Subsalicylate (Bismuth Subsalicylate Liqd 236 Ml) 15 ml PO PRN PRN PRN Reason: Loose Stool Stop: 12/28/22 22:33 Clozapine (Clozapine 25 Mg Tab) 50 mg PO QAM VIVIAN Stop: 01/04/23 08:59 Last Admin: 12/07/22 08:27 Dose: 50 mg Clozapine (Clozapine 100 Mg Tab) 200 mg PO HS VIVIAN Stop: 01/04/23 21:59 Last Admin: 12/06/22 20:46 Dose: 200 mg Clozapine (Clozapine 25 Mg Tab) 25 mg PO HS VIVIAN Stop: 01/04/23 21:59 Last Admin: 12/06/22 20:47 Dose: 25 mg Docusate Calcium (Docusate Calcium 240 Mg Capsule) 240 mg PO DAILY VIVIAN Stop: 12/30/22 17:29 Last Admin: 12/07/22 08:27 Dose: 240 mg Haloperidol (Haloperidol 5 Mg Tab) 2.5 mg PO BID PRN PRN Reason: Anxiety/Agitation Stop: 12/29/22 08:59 Last Admin: 12/01/22 14:23 Dose: 2.5 mg Haloperidol (Haloperidol 1 Mg Tab) 3 mg PO BID VIVIAN Stop: 01/05/23 20:59 Last Admin: 12/07/22 08:28 Dose: 3 mg Hydroxyzine HCl (Hydroxyzine Hcl 25 Mg Tab) 25 mg PO Q4H PRN PRN Reason: Anxiety Stop: 12/28/22 22:33 Hydroxyzine HCl (Hydroxyzine Hcl 25 Mg Tab) 50 mg PO HSZ PRN PRN Reason: Insomnia Stop: 12/28/22 22:33 [place] Carbonate ([place] Carbonate 300 Mg Tab) 300 mg PO DAILY VIVIAN Stop: 12/29/22 09:29 Last Admin: 12/07/22 08:28 Dose: 300 mg [place] Carbonate ([place] Carbonate 300 Mg Tab) 600 mg PO HS VIVIAN Stop: 12/29/22 21:59 Last Admin: 12/06/22 20:47 Dose: 600 mg Lorazepam (Lorazepam 0.5 Mg Tab) 0.5 mg PO Q6H PRN PRN Reason: Anxiety/agitation Stop: 12/31/22 15:35 Last Admin: 12/03/22 19:51 Dose: 0.5 mg Polyethylene Glycol (Polyethylene (Miralax) 17 Gm Pack) 17 gm PO DAILY PRN PRN Reason: Constipation Stop: 12/30/22 17:10 Sodium Chloride (Sodium Chloride 0.65% Na Soln 45 Ml (Slope)) 1 - 2 sprays NA PRN PRN PRN Reason: Nasal Dryness/Congestion Stop: 12/28/22 22:33 Mental Health & Subst Abuse Tx Psychiatrist Name of Psychiatrist: [facility] Psychiatrist's Psychiatric Appointment Comment: [address] [place] [address] Therapist Name of Therapist: N/A Account Development Manager Name of Account Development Manager: WILLIE Acosta Phone Number for Account Development Manager: [phone] Date of Appointment with Account Development Manager: 12/12/22 Time of Appointment with Account Development Manager: 3pm Case Management Appointment Comment: will continue to meet in the home/community Post Discharge Appointments Primary Care Physician Name Of Family Doctor/PCP: [facility] Time of Appointment with PCP: follow up as needed Provider Appointment Comment: [address] [place] [address] Contact Information Contact Information 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
[2022-12-07] MEDS: ACETAMINOPHEN 325 MG TAB PO PRN (12:00)
[2022-12-07] MEDS: cloZAPine 100 MG TAB PO SCH (21:07)
[2022-12-08] MEDS: DOCUSATE CALCIUM 240 MG CAPSULE PO SCH (08:58)
[2022-12-08] MEDS: cloZAPine 25 MG TAB PO SCH ×2 (08:58→21:35)
[2022-12-08] MEDS: LITHIUM CARBONATE 300 MG TAB PO SCH ×2 (08:59→21:35)
[2022-12-08] MEDS: haloperidoL 1 MG TAB PO SCH ×2 (08:59→21:34)
--- NOTE | 2022-12-08 15:30 | Psychiatric Progress Note ---
Date of Service December 08, 2022 Impression / Recommendations Impression Naseem is a 27 year old man with a history of schizoaffective disorder and [facility] and recently discharged from the [facility] (during which time his clozapine was discontinued) who was admitted for disorganized behaviors and psychosis. Diagnostically consistent with acute exacerbation of schizoaffective disorder. No evidence for any recent substance use, UDS positive for MDMA but suspect this is a false positive from trazodone use. Possibility for contribution from underlying medical cause as his WBC was slightly elevated but vital signs have been stable, afebrile, no physical complaints. TSH is low so will check free T4. The patient is deemed unstable and requires psychiatric hospitalization for diagnostic clarification, safety and stabilization, medication management and development of further coping skills. MNPR due to acute psychosis and paranoia 12/02/2022: Ongoing acute exacerbation of psychosis with delusions, paranoia and internal stimuli. Today more fatigued, likely due to titration of clozapine, no other side effects. Adherent with medications. Responded well to prn ativan after episode of acute psychic distress from delusions causing thoughts of self- harm so will keep this available as needed should this occur again and in an effort to minimize any additional antipsychotic medication. 12/03/2022: Clozapine has been resumed and is being titrated, with rate limited by sedation. Review of chart indicates previous dose had totaled around 200 mg/day (50 mg QAM, 150 mg QPM) so that would be a reasonable target for titration. Discussed this with pt at length. He can't recall why it was stopped before but says he's certain he had no abnormal blood counts. Li level 11/30/2022 of 0.6 mmol/L, though subtherapeutic for most pts, is consistent with pt's previous levels, indicating that current dose is likely appropriate. 12/04/2022: "Not as suicidal today", though the thoughts remain fairly constant. Previous clozapine dose has been confirmed as having been 50 mg QAM & 225 mg QHS, so will use that as target for titration. Pt exhibits significant parkinsonism despite benztropine, and pt was on the same 8 mg BID dose of haloperidol when admitted (indicating it's inadequately effective) so will plan to taper haloperidol and focus on clozapine as primary antipsychotic. 12/05/2022: "A lot better today". Staff note that pt was out and participating in the milieu yesterday evening, voicing less suicidality. No evidence of any adverse effect including somnolence following increase of clozapine to 125 mg last night - was first out of his room for breakfast this morning. 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 12/06/2022: Pt tells me "the suicidal thoughts are gone" completely. He has been participa ting very well and has been observed clearly enjoying activities. He says "the hallucinations are less". Feels somewhat sleepy today after last night's increase in clozapine dose. Discussed with pt continuing to reduce haloperidol with a goal of clozapine monotherapy, which would likely be most effective with more evenly-divided dosing. 12/07/2022: Continues to report "the suicidal thoughts are gone". He reports he's "barely hallucinating". He is, if anything, more engaged today and has clearly been enjoying some games. Reports some dizziness. While he does not associate this with postural changes, it could well be hypotension from clozapine (which is one of its most common side effects). Discussed further reduction in haloperidol. ANC today 6.59. 12/08/2022: Reports he's "doing great". No suicidal thoughts or hallucinations at all. He continues to participate very well. No longer reporting dizziness. Reviewed possible changes to consider post-discharge, such as tapering chacko loperidol, as well as considering clozapine blood level. (1) Schizoaffective disorder: (2) Psychosis: Plan 12/08/2022: * continue clozapine 50 mg QAM & 225 mg QHS * continue haloperidol to 2 mg BID * continue LiCO3 300 mg QAM & 600 mg QHS * anticipate likely discharge tomorrow 12/07/2022: * continue clozapine 50 mg QAM & 225 mg QHS; delay titration to higher AM dose until dizziness has resolved. * reduce haloperidol to 2 mg BID, anticipating continued taper * continue LiCO3 300 mg QAM & 600 mg QHS 12/06/2002: * continue clozapine 50 mg QAM & 225 mg QHS; anticipate titration to higher AM dose soon. * reduce haloperidol to 3 mg BID * continue LiCO3 300 mg QAM & 600 mg QHS 12/05/2022: * increase clozapine to 50 mg QAM & 225 mg QHS, plan further titration (to 300- 400 mg/day) * continue haloperidol 5 mg BID, plan further taper and ideally elimination * continue LiCO3 300 mg QAM & 600 mg QHS * try to obtain data from outpatient service to help understand if pt needs such a big difference between AM and PM olanzapine doses and what evidence there is for his needing both olanzapine and haloperidol 12/04/2022: * continue titration of clozapine to target of 25 mg QAM & 225 mg QHS, increasing tonight to 50 mg QAM, 125 mg QHS * taper haloperidol from current 8 mg BID, reducing today to 8 mg QM & 5 mg HS, and tomorrow 5 mg BID * plan to eliminate benztropine as soon as haloperidol dose is sufficiently low to permit this. * continue LiCO3 300 mg QAM & 600 mg QHS 12/03/2022: * increase clozapine to 50 mg PO BID (first increased dose this evening) * continue LiCO3 300 mg QAM & 600 mg QHS; while this regimen may improve tolerability, it adds complexity vs. single daily dose and evidence suggests, counterintuitively, that single daily dose associated with lower renal risk, so may consolidate later. 12/02/2022: -Continue clozapine 25mg BID po -Added ativan prn for acute agitation/severe psychic distress 12/01/2022: -Tomorrow increase clozapine to 25mg qAM & 25mg HS 11/30/2022: -Start clozapine 12.5 mg BID -Weekly ANC ordered -Start docusate 250mg daily and miralax 17g prn for constipation -Continue haldol, lithium -Switch to cogentin as needed (given evidence scheduled use may increase risk of TD nursing home) and discontinue trazodone as starting clozapine 11/29/2022: The patient [facility] on q15 min checks (behavioral with suicide precautions) for safety. The patient will participate in group, recreational, and milieu therapies and will be offered additional individual and family sessions as clinically appropriate. -Attempt records from [place] to determine past medication trials, would likely benefit from clozapine if he hasn't tried this before and no contraindications -For now will continue [place], haldol, trazodone and cogentin -Will get [place] level tomorrow AM and fasting lipid panel, glucose and HbA1c and free T4 Inventory Assets Strengths: supportive relationships, willing to get treatment Needs: safety and stabilization, medication adjustment, additional coping skills, increased outpatient services Suicide Risk Level Suicide Risk Level: Low (q15 min observation checks) Suicide Risk Level Comments: no SI, feels safe in the hospital, able to safety contract and agrees to let nursing/staff know should he develop SI or feel unable to remain safe. Risk Factors Assessment Male: Yes : Yes Do You Have Access To A Gun?: No Mental Health Diagnoses: Yes Substance Use Disorders: No Previous Attempt: No Previous Psychiatric Hospitalization: Yes Protective Factors Assessment Employed: No Stable Relationships: Yes Supportive Family: Yes Good Rapport with Provider: Yes Interval History Identifying Information NASEEM MCGEE is a 27-year-old M who currently lives at [facility] with a roommate, has a history of schizoaffective disorder, and was admitted on 11/28/22 23:11 on a 201 voluntary commitment for disorganized behaviors and acute exacerbation of psychosis. Chief Complaint "Doing great". Review of Systems Sleep Information Total Hours of Sleep: 9.25 Meal Information Percent Meal Consumed - Breakfast: 0 Percent Meal Consumed - Lunch: 0 Percent Meal Consumed - Dinner: 100 Nutrition Comment: pt. allowed to rest Subjective Subjective Patient was seen & assessed and interval progress reviewed with treatment team nursing and social work Physical Exam Psychiatric Orientation: alert, oriented to person, oriented to place, oriented to time and cooperative Apperance: appropriately dressed and appropriately groomed Eye Contact: good eye contact Motor Behavior: no abnormal motor movements Speech: normal rate/rhythm/volume of speech Affect: + constricted affect Mood: no depressed mood and no anxious mood Thought Process: goal directed thought process Thought Content: reality based without delusions Suicidal Thoughts: denies suicidal thoughts (intermittent), denies suicidal plan and denies suicidal intent Homicidal Thoughts: denies homicidal thoughts Hallucinations: no auditory hallucinations and no visual hallucinations Cognition: recent memory grossly intact, remote memory grossly intact, attention grossly intact and language grossly intact Estimated Intelligence: consistent with education level Insight: + fair insight Judgment: good judgement Vital Signs (Past 24 Hours) Last Vital Signs Temp 36.8 C 12/08/22 06:35 Pulse 103 H 12/08/22 06:36 Resp 16 12/08/22 06:35 BP 124/78 12/08/22 06:36 Results & Data ([facility]) Current Inpatient Medications Current Inpatient Medications: Current Inpatient Medications Acetaminophen (Acetaminophen 325 Mg Tab) 650 mg PO Q4H PRN PRN Reason: Headache or Minor Fever Stop: 12/28/22 22:33 Last Admin: 12/07/22 12:00 Dose: 650 mg Al Hydrox/Mg Hydrox/Simethicone (Aluminum/Magnesium Susp 30 Ml Udc) 30 ml PO Q4H PRN PRN Reason: GI Upset Stop: 12/28/22 22:33 Benztropine Mesylate (Benztropine Mesylate 1 Mg Tab) 1 mg PO DAILY PRN PRN Reason: muscle stiffness Stop: 12/31/22 08:59 Bismuth Subsalicylate (Bismuth Subsalicylate Liqd 236 Ml) 15 ml PO PRN PRN PRN Reason: Loose Stool Stop: 12/28/22 22:33 Clozapine (Clozapine 25 Mg Tab) 50 mg PO QAM VIVIAN Stop: 01/04/23 08:59 Last Admin: 12/08/22 08:58 Dose: 50 mg Clozapine (Clozapine 100 Mg Tab) 200 mg PO HS VIVIAN Stop: 01/04/23 21:59 Last Admin: 12/07/22 21:07 Dose: 200 mg Clozapine (Clozapine 25 Mg Tab) 25 mg PO HS VIVIAN Stop: 01/04/23 21:59 Last Admin: 12/07/22 21:07 Dose: 25 mg Docusate Calcium (Docusate Calcium 240 Mg Capsule) 240 mg PO DAILY VIVIAN Stop: 12/30/22 17:29 Last Admin: 12/08/22 08:58 Dose: 240 mg Haloperidol (Haloperidol 5 Mg Tab) 2.5 mg PO BID PRN PRN Reason: Anxiety/Agitation Stop: 12/29/22 08:59 Last Admin: 12/01/22 14:23 Dose: 2.5 mg Haloperidol (Haloperidol 1 Mg Tab) 2 mg PO BID VIVIAN Stop: 01/06/23 20:59 Last Admin: 12/08/22 08:59 Dose: 2 mg Hydroxyzine HCl (Hydroxyzine Hcl 25 Mg Tab) 25 mg PO Q4H PRN PRN Reason: Anxiety Stop: 12/28/22 22:33 Hydroxyzine HCl (Hydroxyzine Hcl 25 Mg Tab) 50 mg PO HSZ PRN PRN Reason: Insomnia Stop: 12/28/22 22:33 [place] Carbonate ([place] Carbonate 300 Mg Tab) 300 mg PO DAILY VIVIAN Stop: 12/29/22 09:29 Last Admin: 12/08/22 08:59 Dose: 300 mg [place] Carbonate ([place] Carbonate 300 Mg Tab) 600 mg PO HS VIVAIN Stop: 12/29/22 21:59 Last Admin: 12/07/22 21:07 Dose: 600 mg Lorazepam (Lorazepam 0.5 Mg Tab) 0.5 mg PO Q6H PRN PRN Reason: Anxiety/agitation Stop: 12/31/22 15:35 Last Admin: 12/03/22 19:51 Dose: 0.5 mg Polyethylene Glycol (Polyethylene (Miralax) 17 Gm Pack) 17 gm PO DAILY PRN PRN Reason: Constipation Stop: 12/30/22 17:10 Sodium Chloride (Sodium Chloride 0.65% Na Soln 45 Ml ([place]put[place])) 1 - 2 sprays NA PRN PRN PRN Reason: Nasal Dryness/Congestion Stop: 12/28/22 22:33 Mental Health & Subst Abuse Tx Psychiatrist Name of Psychiatrist: [facility] Date Of Appointment With Psychiatric Provider: 12/15/22 Time of Appointment with Psychiatrist: 10 AM Psychiatric Appointment Comment: [address] [place] [address] Therapist Name of Therapist: N/A Transformation Coach Name of Transformation Coach: MAGDALENE Rose Phone Number for Transformation Coach: [phone] Date of Appointment with Transformation Coach: 12/12/22 Time of Appointment with Transformation Coach: 3pm Case Management Appointment Comment: will continue to meet in the home/community Post Discharge Appointments Primary Care Physician Name Of Family Doctor/PCP: [id number] Time of Appointment with PCP: follow up as needed Provider Appointment Comment: [address] [place] [address] Contact Information Contact Information Comment: Harley Bennett 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
[2022-12-08] MEDS: cloZAPine 100 MG TAB PO SCH (21:34)
[2022-12-09] MEDS: cloZAPine 25 MG TAB PO SCH (08:46)
[2022-12-09] MEDS: haloperidoL 1 MG TAB PO SCH (08:47)
[2022-12-09] MEDS: LITHIUM CARBONATE 300 MG TAB PO SCH (08:47)
[2022-12-09] MEDS: DOCUSATE CALCIUM 240 MG CAPSULE PO SCH (08:47)
--- NOTE | 2022-12-09 09:56 | Discharge Summary ---
Date of Service December 09, 2022 History of Present Illness Javid presents for psychiatric admission for psychosis and odd behaviors including his concern that he may accidentally hurt others by mixing creations of household items which he feels compelled to do in an effort to create inventions that can be used for electronic capacitor parts. He was recently discharged from the [facility] where he was hospitalized for about 2.5 months and while there they discontinued his clozapine 50mg qAM and 225mg HS. Upon returning to his supportive living home at [facility] they felt he looked worse than before going to the [facility] with responding to internal stimuli and expressing concerns about anthrax poisoning and attacks. Today he describes his recent inventions including mixing water and oil in a way that could "blow up" things if incorrectly added to other gasoline sources, creating a supersaturated salt and mixing mountain dew with canola oil "like on [employer]" which he fears may have caused posion to be released and thinks that he unintentionally may have killed 30 people. Tells me "I don't know who they are but I feel awful about it". 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 He feels his mood is currently stable and that his main symptom is "psychosis" but agrees he has experienced susanne and depression in the past and feels that schizoaffective disorder is an accurate diagnosis. He is currently prescribed psychiatric medications of haldol 8mg BID, lithium 300mg qd & 600mg HS, trazodone 200mg HS and cogentin 1mg HS. Further recent history reviewed and confirmed as documented by ED psych CM on 11/28/22: "Patient resides at [facility] and carries diagnoses of schizoaffective and bipolar disorder. He denies any suicidality or homicidality. He does state that he feels "unstable". He describes complex mathematical processes and inventions that he has been working on. He states that he is worried because he has been making inventions that could cause the end of humanity. He describes a mixture of mountain dew, canola oil, and salt that could harm people. He states he feels compelled to invent things but does not want to hurt anyone. He endorses past suicidal thoughts but nothing in the past ten years or so. He follows with [facility] for psychiatry but does not have a therapist. He states he would like to have a therapist but has not been set up with one. He is delusional in regards to his status as a mutant and states that he has the ability to know all things about all people. He states he is respective of others' privacy though, so he does not typically use those zaragoza. Denies legal issues, A/V hallucinations, SIB, and any abuse history. Denies any drug or alcohol use. He feels that inpatient treatment would be helpful for him to stabilize." Physical Exam Psychiatric Orientation: alert, oriented to person, oriented to place, oriented to time and cooperative Apperance: appropriately dressed and appropriately groomed Eye Contact: good eye contact Motor Behavior: + EPS (some dystonia, significantly improved since admission) Speech: normal rate/rhythm/volume of speech Affect: + constricted affect Mood: no depressed mood and no anxious mood Thought Process: goal directed thought process Thought Content: reality based without delusions Suicidal Thoughts: denies suicidal thoughts (intermittent), denies suicidal plan and denies suicidal intent Homicidal Thoughts: denies homicidal thoughts Hallucinations: no auditory hallucinations and no visual hallucinations Cognition: recent memory grossly intact, remote memory grossly intact, attention grossly intact and language grossly intact Estimated Intelligence: consistent with education level Insight: + fair insight Judgment: + fair judgement Vital Signs (Past 24 Hours) Last Vital Signs Temp 36.5 C 12/09/22 09:42 Pulse 103 H 12/09/22 09:42 Resp 16 12/09/22 09:42 BP 129/77 12/09/22 09:42 See admission H&P and DOD assessment. Principal Diagnosis Schizoaffective Disorder, Bipolar Type Psychiatric Data See daily stay summary. In short, safety was maintained and the patient was cooperative with care. Medication changes included resumption of clozapine and taper of haloperidol and they tolerated this well. A family session was held and safety plan was completed prior to discharge. 12/08/2022: Reports he's "doing great". No suicidal thoughts or hallucinations at all. He continues to participate very well. No longer reporting dizziness. Reviewed possible changes to consider post-discharge, such as tapering haloperidol, as well as considering clozapine blood level. 12/07/2022: Continues to report "the suicidal thoughts are gone". He reports he's "barely hallucinating". He is, if anything, more engaged today and has clearly been enjoying some games. Reports some dizziness. While he does not associate this with postural changes, it could well be hypotension from clozapine (which is one of its most common side effects). Discussed further reduction in haloperidol. ANC today 6.59. 12/06/2022: Pt tells me "the suicidal thoughts are gone" completely. He has been participating very well and has been observed clearly enjoying activities. He says "the hallucinations are less". Feels somewhat sleepy today after last night's increase in clozapine dose. Discussed with pt continuing to reduce haloperidol with a goal of clozapine monotherapy, which would likely be most effective with more evenly-divided dosing. 12/05/2022: "A lot better today". Staff note that pt was out and participating in the milieu yesterday evening, voicing less suicidality. No evidence of any adverse effect including somnolence following increase of clozapine to 125 mg last night - was first out of his room for breakfast this morning. 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 12/04/2022: "Not as suicidal today", though the thoughts remain fairly constant. Previous clozapine dose has been confirmed as having been 50 mg QAM & 225 mg QHS, so will use that as target for titration. Pt exhibits significant parkinsonism despite benztropine, and pt was on the same 8 mg BID dose of haloperidol when admitted (indicating it's inadequately effective) so will plan to taper haloperidol and focus on clozapine as primary antipsychotic. 12/03/2022: Clozapine has been resumed and is being titrated, with rate limited by sedation. Review of chart indicates previous dose had totaled around 200 mg/day (50 mg QAM, 150 mg QPM) so that would be a reasonable target for titration. Discussed this with pt at length. He can't recall why it was stopped before but says he's certain he had no abnormal blood counts. Li level 11/30/2022 of 0.6 mmol/L, though subtherapeutic for most pts, is consistent with pt's previous levels, indicating that current dose is likely appropriate. 12/02/2022: Ongoing acute exacerbation of psychosis with delusions, paranoia and internal stimuli. Today more fatigued, likely due to titration of clozapine, no other side effects. Adherent with medications. Responded well to prn ativan after episode of acute psychic distress from delusions causing thoughts of self- harm so will keep this available as needed should this occur again and in an effort to minimize any additional antipsychotic medication. Day of Discharge Assessment Today the patient voices readiness for discharge. They note improvement in mood and deny thoughts to harm self or others. Thoughts remain organized and they are improved from admission. There is no evidence of psychosis. They agree to take mediations as prescribed and keep follow-up appointments. They are stable for discharge to outpatient level of care. Transition of Care Transition Of Care Record: was reviewed with the patient Advance Directives Advance Directives Information Provided: Yes Advance Directives: No Mental Health Advance Directive: No Advance Directives on File: No Living Will: No Power of Graduate Teaching Associate: No Advance Directives Reason:: Declines as Mental Health Visit. Suicide Risk Level Suicide Risk Level: Low (q15 min observation checks) Suicide Risk Level Comments: no SI, feels safe in the hospital, able to safety contract and agrees to let nursing/staff know should he develop SI or feel unable to remain safe. Risk Factors Assessment Male: Yes : Yes Do You Have Access To A Gun?: No Health Problems: No Mental Health Diagnoses: Yes Substance Use Disorders: No Previous Attempt: No Previous Psychiatric Hospitalization: Yes Protective Factors Assessment Employed: No Stable Relationships: Yes Supportive Family: Yes Good Rapport with Provider: Yes Tobacco Cessation at Discharge Tobacco Cessation Medication Prescribed at Discharge: Not Applicable/Non-Smoker Total Time Total Time Spent: Greater Than 30 Minutes Total Time Includes: Examination of the patient, Discharge Planning and Medication Reconciliation Discharge Data Lab Results 11/28/22 11/28/22 11/28/22 17:00 17:00 17:00 WBC 11.90 H RBC 6.05 Hgb 16.1 Hct 48.2 MCV 79.7 L MCH 26.6 MCHC 33.4 RDW Std Deviation 40.9 RDW Coeff of Belén 14.5 Plt Count 343 MPV 10.3 Immature Gran % (Auto) 0.5 Neut % (Auto) 64.0 Lymph % (Auto) 23.9 Wilcox % (Auto) 8.4 Eos % (Auto) 2.5 Baso % (Auto) 0.7 Neut # (Auto) 7.61 H Lymph # (Auto) 2.85 Wilcox # (Auto) 1.00 H Eos # (Auto) 0.30 Baso # (Auto) 0.08 Immature Gran # (Auto) 0.06 Sodium 139 Potassium 3.9 Chloride 103 Carbon Dioxide 33 H Anion Gap 3 BUN 10 Creatinine 0.96 Est Cr Clr Drug Dosing 142.7 Est GFR ( Amer) 125.0 Est GFR (Non-Af Amer) 107.9 BUN/Creatinine Ratio 10.4 Glucose 112 H Fasting Glucose Estimat Average Glucose Hemoglobin A1c Calcium 10.0 Total Bilirubin 0.5 AST 22 ALT 27 Alkaline Phosphatase 54 Total Protein 6.9 Albumin 4.9 Globulin 2.0 L Albumin/Globulin Ratio 2.5 H Triglycerides Cholesterol LDL Cholesterol, Calc VLDL Cholesterol, Calc HDL Cholesterol Cholesterol/HDL Ratio TSH 0.041 L Free T4 Free T3 Urine Color Urine Appearance Urine pH Ur Specific Mcclave Urine Protein Urine Glucose (UA) Urine Ketones Urine Blood Urine Nitrite Urine Bilirubin Urine Urobilinogen Ur Leukocyte Esterase Urine WBC (Auto) Urine RBC (Auto) U Hyaline Cast (Auto) U Epithel Cells (Auto) Urine Bacteria (Auto) Salicylates Urine Opiates Screen Ur Methadone, Qual Acetaminophen Urine Barbiturates Ur Phencyclidine (PCP) U Amphetamin/Meth Scrn Urine MDEA MDMA (Ecstasy) Screen MDMA Urine MDMA U Benzodiazepines Scrn Gem Ur Cocaine Metabolite U Marijuana (THC) Screen Ethyl Alcohol mg/dL SARS-CoV-2, RNA, NAAT 11/28/22 11/28/22 11/28/22 17:00 17:00 17:01 WBC RBC Hgb Hct MCV MCH MCHC RDW Std Deviation RDW Coeff of Belén Plt Count MPV Immature Gran % (Auto) Neut % (Auto) Lymph % (Auto) Wilcox % (Auto) Eos % (Auto) Baso % (Auto) Neut # (Auto) Lymph # (Auto) Wilcox # (Auto) Eos # (Auto) Baso # (Auto) Immature Gran # (Auto) Sodium Potassium Chloride Carbon Dioxide Anion Gap BUN Creatinine Est Cr Clr Drug Dosing Est GFR ( Amer) Est GFR (Non-Af Amer) BUN/Creatinine Ratio Glucose Fasting Glucose Estimat Average Glucose Hemoglobin A1c Calcium Total Bilirubin AST ALT Alkaline Phosphatase Total Protein Albumin Globulin Albumin/Globulin Ratio Triglycerides Cholesterol LDL Cholesterol, Calc VLDL Cholesterol, Calc HDL Cholesterol Cholesterol/HDL Ratio TSH Free T4 Free T3 Urine Color Yellow Urine Appearance Clear Urine pH 7.0 Ur Specific Mcclave 1.012 Urine Protein Negative Urine Glucose (UA) Negative Urine Ketones Negative Urine Blood Negative Urine Nitrite Negative Urine Bilirubin Negative Urine Urobilinogen Negative Ur Leukocyte Esterase Trace H Urine WBC (Auto) 5-10 H Urine RBC (Auto) 0-4 U Hyaline Cast (Auto) 0 U Epithel Cells (Auto) 10-20 H Urine Bacteria (Auto) Negative Salicylates < 3.0 L Urine Opiates Screen Ur Methadone, Qual Acetaminophen < 3 L Urine Barbiturates Ur Phencyclidine (PCP) U Amphetamin/Meth Scrn Urine MDEA MDMA (Ecstasy) Screen MDMA Urine MDMA U Benzodiazepines Scrn Gem Ur Cocaine Metabolite U Marijuana (THC) Screen Ethyl Alcohol mg/dL < 10.0 SARS-CoV-2, RNA, NAAT 11/28/22 11/28/22 11/28/22 17:01 17:01 19:37 WBC RBC Hgb Hct MCV MCH MCHC RDW Std Deviation RDW Coeff of Belén Plt Count MPV Immature Gran % (Auto) Neut % (Auto) Lymph % (Auto) Wilcox % (Auto) Eos % (Auto) Baso % (Auto) Neut # (Auto) Lymph # (Auto) Wilcox # (Auto) Eos # (Auto) Baso # (Auto) Immature Gran # (Auto) Sodium Potassium Chloride Carbon Dioxide Anion Gap BUN Creatinine Est Cr Clr Drug Dosing Est GFR ( Amer) Est GFR (Non-Af Amer) BUN/Creatinine Ratio Glucose Fasting Glucose Estimat Average Glucose Hemoglobin A1c Calcium Total Bilirubin AST ALT Alkaline Phosphatase Total Protein Albumin Globulin Albumin/Globulin Ratio Triglycerides Cholesterol LDL Cholesterol, Calc VLDL Cholesterol, Calc HDL Cholesterol Cholesterol/HDL Ratio TSH Free T4 Free T3 Urine Color Urine Appearance Urine pH Ur Specific Mcclave Urine Protein Urine Glucose (UA) Urine Ketones Urine Blood Urine Nitrite Urine Bilirubin Urine Urobilinogen Ur Leukocyte Esterase Urine WBC (Auto) Urine RBC (Auto) U Hyaline Cast (Auto) U Epithel Cells (Auto) Urine Bacteria (Auto) Salicylates Urine Opiates Screen Neg Ur Methadone, Qual Neg Acetaminophen Urine Barbiturates Neg Ur Phencyclidine (PCP) Neg U Amphetamin/Meth Scrn Neg Urine MDEA negative MDMA (Ecstasy) Screen Pos H MDMA negative Urine MDMA negative U Benzodiazepines Scrn Neg Gem Ur Cocaine Metabolite Neg U Marijuana (THC) Screen Neg Ethyl Alcohol mg/dL SARS-CoV-2, RNA, NAAT NEGATIVE 11/30/22 11/30/22 11/30/22 07:11 07:11 07:11 WBC RBC Hgb Hct MCV MCH MCHC RDW Std Deviation RDW Coeff of Belén Plt Count MPV Immature Gran % (Auto) Neut % (Auto) Lymph % (Auto) Wilcox % (Auto) Eos % (Auto) Baso % (Auto) Neut # (Auto) Lymph # (Auto) Wilcox # (Auto) Eos # (Auto) Baso # (Auto) Immature Gran # (Auto) Sodium Potassium Chloride Carbon Dioxide Anion Gap BUN Creatinine Est Cr Clr Drug Dosing Est GFR ( Amer) Est GFR (Non-Af Amer) BUN/Creatinine Ratio Glucose Fasting Glucose 101 H Estimat Average Glucose 114 Hemoglobin A1c 5.6 Calcium Total Bilirubin AST ALT Alkaline Phosphatase Total Protein Albumin Globulin Albumin/Globulin Ratio Triglycerides 119 Cholesterol 123 LDL Cholesterol, Calc 64 VLDL Cholesterol, Calc 24 HDL Cholesterol 35 Cholesterol/HDL Ratio 3.5 TSH Free T4 0.77 Free T3 Urine Color Urine Appearance Urine pH Ur Specific Mcclave Urine Protein Urine Glucose (UA) Urine Ketones Urine Blood Urine Nitrite Urine Bilirubin Urine Urobilinogen Ur Leukocyte Esterase Urine WBC (Auto) Urine RBC (Auto) U Hyaline Cast (Auto) U Epithel Cells (Auto) Urine Bacteria (Auto) Salicylates Urine Opiates Screen Ur Methadone, Qual Acetaminophen Urine Barbiturates Ur Phencyclidine (PCP) U Amphetamin/Meth Scrn Urine MDEA MDMA (Ecstasy) Screen MDMA Urine MDMA U Benzodiazepines Scrn Gem Ur Cocaine Metabolite U Marijuana (THC) Screen Ethyl Alcohol mg/dL SARS-CoV-2, RNA, NAAT 11/30/22 11/30/22 12/07/22 07:11 07:11 08:50 WBC 10.10 RBC Hgb Hct MCV MCH MCHC RDW Std Deviation RDW Coeff of Belén Plt Count MPV Immature Gran % (Auto) 0.8 Neut % (Auto) 65.2 Lymph % (Auto) 23.0 Wilcox % (Auto) 7.0 Eos % (Auto) 3.2 Baso % (Auto) 0.8 Neut # (Auto) 6.59 H Lymph # (Auto) 2.32 Wilcox # (Auto) 0.71 H Eos # (Auto) 0.32 Baso # (Auto) 0.08 Immature Gran # (Auto) 0.08 Sodium Potassium Chloride Carbon Dioxide Anion Gap BUN Creatinine Est Cr Clr Drug Dosing Est GFR ( Amer) Est GFR (Non-Af Amer) BUN/Creatinine Ratio Glucose Fasting Glucose Estimat Average Glucose Hemoglobin A1c Calcium Total Bilirubin AST ALT Alkaline Phosphatase Total Protein Albumin Globulin Albumin/Globulin Ratio Triglycerides Cholesterol LDL Cholesterol, Calc VLDL Cholesterol, Calc HDL Cholesterol Cholesterol/HDL Ratio TSH Free T4 Free T3 3.12 Urine Color Urine Appearance Urine pH Ur Specific Mcclave Urine Protein Urine Glucose (UA) Urine Ketones Urine Blood Urine Nitrite Urine Bilirubin Urine Urobilinogen Ur Leukocyte Esterase Urine WBC (Auto) Urine RBC (Auto) U Hyaline Cast (Auto) U Epithel Cells (Auto) Urine Bacteria (Auto) Salicylates Urine Opiates Screen Ur Methadone, Qual Acetaminophen Urine Barbiturates Ur Phencyclidine (PCP) U Amphetamin/Meth Scrn Urine MDEA MDMA (Ecstasy) Screen MDMA Urine MDMA U Benzodiazepines Scrn Gem 0.6 Ur Cocaine Metabolite U Marijuana (THC) Screen Ethyl Alcohol mg/dL SARS-CoV-2, RNA, NAAT Hospital Course (1) Schizoaffective disorder: (2) Psychosis: Plan 12/08/2022: * continue clozapine 50 mg QAM & 225 mg QHS * continue haloperidol to 2 mg BID * continue LiCO3 300 mg QAM & 600 mg QHS * anticipate likely discharge tomorrow 12/07/2022: * continue clozapine 50 mg QAM & 225 mg QHS; delay titration to higher AM dose until dizziness has resolved. * reduce haloperidol to 2 mg BID, anticipating continued taper * continue LiCO3 300 mg QAM & 600 mg QHS 12/06/2002: * continue clozapine 50 mg QAM & 225 mg QHS; anticipate titration to higher AM dose soon. * reduce haloperidol to 3 mg BID * continue LiCO3 300 mg QAM & 600 mg QHS 12/05/2022: * increase clozapine to 50 mg QAM & 225 mg QHS, plan further titration (to 300- 400 mg/day) * continue haloperidol 5 mg BID, plan further taper and ideally elimination * continue LiCO3 300 mg QAM & 600 mg QHS * try to obtain data from outpatient service to help understand if pt needs such a big difference between AM and PM olanzapine doses and what evidence there is for his needing both olanzapine and haloperidol 12/04/2022: * continue titration of clozapine to target of 25 mg QAM & 225 mg QHS, increasing tonight to 50 mg QAM, 125 mg QHS * taper haloperidol from current 8 mg BID, reducing today to 8 mg QM & 5 mg HS, and tomorrow 5 mg BID * plan to eliminate benztropine as soon as haloperidol dose is sufficiently low to permit this. * continue LiCO3 300 mg QAM & 600 mg QHS 12/03/2022: * increase clozapine to 50 mg PO BID (first increased dose this evening) * continue LiCO3 300 mg QAM & 600 mg QHS; while this regimen may improve tolerability, it adds complexity vs. single daily dose and evidence suggests, counterintuitively, that single daily dose associated with lower renal risk, s o may consolidate later. 12/02/2022: -Continue clozapine 25mg BID po -Added ativan prn for acute agitation/severe psychic distress 12/01/2022: -Tomorrow increase clozapine to 25mg qAM & 25mg HS 11/30/2022: -Start clozapine 12.5 mg BID -Weekly ANC ordered -Start docusate 250mg daily and miralax 17g prn for constipation -Continue haldol, lithium -Switch to cogentin as needed (given evidence scheduled use may increase risk of TD intermediate accountant) and discontinue trazodone as starting clozapine 11/29/2022: The patient was admitted to the [facility] ([facility] inpatient mental health unit) on q15 min checks (behavioral with suicide precautions) for safety. The patient will participate in group, recreational, and milieu therapies and will be offered additional individual and family sessions as clinically appropriate. -Attempt records from [place] to determine past medication trials, would likely benefit from clozapine if he hasn't tried this before and no contraindications -For now will continue Gem, haldol, trazodone and cogentin -Will get Gem level tomorrow AM and fasting lipid panel, glucose and HbA1c and free T4 Mental Health & Subst Abuse Tx Psychiatrist [facility] Date Of Appointment With Psychiatric Provider: 12/15/22 Time of Appointment with Psychiatrist: 10 AM Psychiatric Appointment Comment: [address] [place] [address] Psychiatrist Release of Information: Obtained, Reviewed and Signed Therapist Name of Therapist: N/A Professor Of Mechanical Engineering Name of Professor Of Mechanical Engineering: MAGDALENE Rose Phone Number for Professor Of Mechanical Engineering: [phone] Date of Appointment with Professor Of Mechanical Engineering: 12/12/22 Time of Appointment with Professor Of Mechanical Engineering: 3pm Case Management Appointment Comment: will continue to meet in the home/community service manager Release of Information: Obtained, Reviewed and Signed Post Discharge Appointments Primary Care Physician [facility] Time of Appointment with PCP: follow up as needed Provider Appointment Comment: [address] [place] [address] Primary Care Release of Information: Obtained, Reviewed and Signed Smoking Cessation Counseling Tobacco Cessation Medication Prescribed at Discharge: Not Applicable/Non-Smoker Contact Information Contact Information Comment: 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 Follow through with your scheduled aftercare appointments. If unable to keep an appointment, please call to reschedule. 2. Take your medication only as prescribed. Medication should not be changed or stopped without the approval of your doctor. In the event of worsening symptoms or concerns about side effects, contact your doctor immediately. 3. Utilize new healthy coping skills, anger management skills, and stress management skills learned during your hospitalization. Journal feelings and process them with a support person. Identify stressors or situations that may result in relapse, deterioration or inappropriate behaviors and develop a plan to deal with those issues. 4. If your coping skills are ineffective and you are in crisis, contact your outpatient providers for direction. If unable to reach your providers, please call the [facility] CRISIS LINE AT , go to the [facility] walk-in center at [address], [address], [place], or go to the closest Emergency Room. 5. Avoid alcohol and un-prescribed drugs. 6. You have been provided with the Mental Health Advance Directives Pamphlet for your review. 7. Your condition is stable for discharge to outpatient level of care, but recovery is an ongoing process. Ifthoughts to harm yourself or others return, follow the safety plan developed during your stay. Planning for a safe return home includes securing weapons. Our treatment team recommends weaponsbe removed from the home until your outpatient provider reassesses your progress. In rare cases where the items themselvescannot be removed, guns and ammunitionshould be secured separatelyand keys stored by a reliable personoutside of the home. If you were admitted on an involuntary commitment, the police or other legal authorities may be involved in this process. AFTERCARE APPOINTMENTS: * Please call your insurance company prior to your scheduled appointment to confirm your aftercare providers are covered. Take your insurance information to your appointments. WHO TO CALL AND WHEN: Medical Emergencies: For questions or emergencies related to your hospital stay, please contact the Inpatient Behavioral Health Unit at [phone]. A primary clinician is on-call 01/05 for the Behavioral Health Unit for emergencies At any time you feel your situation is an emergency, you may also call 911 immediately. Pending Studies at Discharge: No Stand-Alone Forms: My [facility] MedPro, Smoking Cessation Medications and DC Order Prescriptions: New benztropine 1 mg Tablet 1 mg PO DAILY PRN (Reason: medication-induced stiffness) 30 Days Qty: 30 0RF lithium carbonate 300 mg Tablet 600 mg PO HS 30 Days Qty: 60 0RF lithium carbonate 300 mg Tablet 300 mg PO DAILY 30 Days Qty: 30 0RF clozapine 100 mg Tablet 200 mg PO HS 30 Days Qty: 60 0RF clozapine [Clozaril] 25 mg Tablet 50 mg PO QAM 30 Days Qty: 60 0RF clozapine [Clozaril] 25 mg Tablet 25 mg PO HS 30 Days Qty: 30 0RF haloperidol 1 mg Tablet 2 mg PO BID 30 Days Qty: 120 0RF Discontinued trazodone 100 mg Tablet 200 mg PO HS lithium carbonate 300 mg capsule 300 mg PO DAILY benztropine 1 mg Tablet 1 mg PO HS haloperidol 2 mg tablet 8 mg PO BID lithium carbonate 600 mg Capsule 600 mg PO HS Discharge Orders: Discharge Order (Routine); Ordered 12/09/22 Ordered By: Farrukh Carson Admission Data Admit Date/Time: 11/28/22 23:11 Attending Provider: Michela Bloom Admit Provider: Michela Bloom Primary Care Provider: PCP,NO Other Interventions: Discharge Summary Assessment (RN) Last Done: 12/09/22 09:42 PSY Interdisciplinary Discharge Planning Last Done: 12/09/22 09:42 Coding Level of Care Code 59910 D/C day mgmt > 30 min Diagnoses Schizoaffective disorder F25.9 Psychosis F29 Psychosis type: unspecified psychosis type Time Spent (min) 44
== END 2022-12-09 09:56 | disposition home or self-care (01) | DRG 885 ==
LOC: ED 15:53 → 3S 23:11

== ENCOUNTER 2022-12-20 11:25 | Inpatient (IN) ==
--- NOTE | 2022-12-20 11:41 | Emergency Department Note ---
Impression & Plan Suicidal ideation ED Provider Note NAME: NASEEM MCGEE AGE: 27 SEX: M : 1995 ARRIVES VIA: Ambulance INFORMANT: [Patient] ED PROVIDER(S): [Rj Franklin MD] CHIEF COMPLAINT: Mental health evaluation HISTORY OF PRESENT ILLNESS: The patient is a 27-year-old male who was discharged from this hospital's psychiatric floor on the 3rd, 11 days ago. The patient states that he went to his doctor's office today, Dr. Dunn. The patient admitted to some suicidal thoughts. He was thinking about harming himself with a knife. He has cut himself before. The patient was willing to come to the hospital for a voluntary psychiatric admission. The patient's doctor did feel a 302 petition would be warranted if the patient decided to leave without hospitalization. The patient is not sure what has caused him to feel the way he is feeling. He denies any increased stressors. He is taking his medications as prescribed. No other complaints or concerns today PMHx/PSHx: See Below SOCIAL HISTORY: See Below. PHYSICAL EXAM: GENERAL: Patient is in no acute distress. HEENT: No acute trauma, normocephalic atraumatic, mucous membranes moist, no nasal congestion. NECK: No stridor, no adenopathy, no meningismus, trachea is midline. LUNGS: Clear to auscultation bilaterally, no wheeze, no rhonchi, breath sounds equal. HEART: Without murmurs gallops or rubs, regular rate and rhythm. ABDOMEN: Soft, nontender, bowel sounds positive, no peritonitis. EXTREMITIES: No cyanosis or edema, full range of motion of all the joints without pain or difficulty, no signs for acute trauma. NEUROLOGIC: Oriented x 3, no acute motor or sensory deficits, no focal weakness. SKIN: No rash, no jaundice, no diaphoresis. Psychiatric: Seems a bit anxious or agitated. Cooperative, voluntary, admits to suicidal ideation in that he would stab himself with a knife. DIFFERENTIAL DIAGNOSIS: Psychosis, medication noncompliance, suicidality, infection, electrolyte imbalance, among others. EMERGENCY DEPARTMENT COURSE/PROCEDURES: Prior/Outside records reviewed: Recent discharge summary. MEDICAL DECISION MAKING: There is no leukocytosis or concerning anemia. There is a normal platelet count. No renal failure or significant electrolyte abnormality. No concerning liver enzyme elevation. No thyroid dysfunction. Urinalysis shows some trace ketones, contamination was suspected. Urine tox was negative. Hecker level w as low at 0.5. Alcohol level was undetectable. Aspirin and Tylenol levels were undetectable. COVID test returned negative. On exam, the patient was initially somewhat anxious but then, seemed to develop a more flattened affect. Patient was felt medically clear. The patient was voluntary. He was seen by psychiatry case management, the referring physician was contacted, his living center was contacted. The patient is being hospitalized on 3 S., this hospital's psychiatric floor. The patient will be admitted voluntarily. DISPOSITION: Patient's presentation and findings warrant a hospital stay. Past Med/Surg History Medical History Bipolar disorder Depression Mood disorder Suicidal intent Family History Other No pertinent family history in first degree relatives Social History Smoking Status: Never smoker Preferred Language: [place]ib[place]ian Communication Ability: Effective Lay Up Operator Required: No Beliefs That Will Affect Care: None Feels Safe at Home: Yes Gender Identity: Male Assistive Devices: None Allergies Allergies Allergy/AdvReac Type Severity Reaction Status Date / Time No Known Allergies Allergy Verified 12/20/22 12:07 Home Meds Previous Rx's Medication Instructions Recorded benztropine 1 mg tablet 1 mg PO DAILY PRN 12/08/22 medication-induced stiffness 30 days #30 tabs clozapine 100 mg tablet 200 mg PO HS 30 days #60 tabs 12/08/22 clozapine 25 mg tablet (Clozaril) 25 mg PO HS 30 days #30 tabs 12/08/22 clozapine 25 mg tablet (Clozaril) 50 mg PO QAM 30 days #60 tabs 12/08/22 haloperidol 1 mg tablet 2 mg PO BID 30 days #120 tabs 12/08/22 lithium carbonate 300 mg tablet 300 mg PO DAILY 30 days #30 tabs 12/08/22 lithium carbonate 300 mg tablet 600 mg PO HS 30 days #60 tabs 12/08/22 Results & Data (ED) Vital Signs Vital Signs - 24 hr 12/20/22 11:30 Temperature 36.6 C Temperature Source Oral Pulse Rate 99 H Respiratory Rate 16 Respiratory Effort / Characteristics Non-Labored Spontaneous Respiratory Depth Normal Respiratory Pattern Regular Blood Pressure 147/87 H Blood Pressure Mean 107 Blood Pressure Position Lying Pulse Oximetry 97 Oxygen Delivery Method Room Air Sepsis Recent Fever Within 48 Hours No Sepsis New/Unexplained Change in Mental Status N/A Sepsis Action Taken by Nursing No Action Required Home Medications Current Medication List: was personally reviewed by me Laboratory Data Attestation: I reviewed the patient's lab results. 12/20/22 11:44 12/20/22 11:44 Lab Results 12/20/22 12/20/22 12/20/22 Range/Units 11:44 11:44 11:44 WBC 10.71 (4.8-10.8) K/ul RBC 5.80 (4.70-6.10) M/uL Hgb 15.5 (14.0-18.0) g/dl Hct 46.9 (42.0-52.0) % MCV 80.9 (80.0-100.0) fL MCH 26.7 (25.0-34.0) pg MCHC 33.0 (32.0-36.0) g/dL RDW Std Deviation 46.0 (36.4-46.3) fL RDW Coeff of Belén 16.7 H (11.5-14.5) % Plt Count 352 (130-400) K/uL MPV 10.3 (9.4-12.4) fL Immature Gran % (Auto) 3.2 % Neut % (Auto) 63.1 % Lymph % (Auto) 22.3 % [place] % (Auto) 7.8 % Eos % (Auto) 2.5 % Baso % (Auto) 1.1 % Neut # (Auto) 6.75 H (1.40-6.50) K/uL Lymph # (Auto) 2.39 (1.2-3.4) K/uL [place] # (Auto) 0.84 H (0.11-0.59) K/uL Eos # (Auto) 0.27 (0-0.50) K/uL Baso # (Auto) 0.12 (0-0.2) K/uL Immature Gran # (Auto) 0.34 H (0.01-0.20) K/uL Sodium 141 (136-145) mmol/L Potassium 4.0 (3.5-5.1) mmol/L Chloride 106 (98-107) mmol/L Carbon Dioxide 29 (21-32) mmol/L Anion Gap 6 (3-11) BUN 8 (6-23) mg/dl Creatinine 0.97 (0.6-1.4) mg/dl Est Cr Clr Drug Dosing 143.4 ml/min Est GFR ( Amer) 123.5 ml/min Est GFR (Non-Af Amer) 106.6 ml/min BUN/Creatinine Ratio 8.2 L (10-20) Glucose 96 (70-99(Fasting)) mg/dl Calcium 9.5 (8.5-10.1) mg/dl Total Bilirubin 0.4 (0.2-1.0) mg/dl AST 30 (13-39) U/L ALT 48 (7-52) U/L Alkaline Phosphatase 54 (34-104) U/L Total Protein 7.0 (6.0-8.3) gm/dl Albumin 4.6 (3.4-5.0) gm/dl Globulin 2.4 L (2.5-4.0) gm/dl Albumin/Globulin Ratio 1.9 (0.9-2) TSH 1.486 (0.300-4.500) uIu/ml Salicylates (3.0-30) mg/dl Acetaminophen (10-30) ug/ml Hecker (0.6-1.2) mmol/L Ethyl Alcohol mg/dL (<10.0) mg/dl SARS-CoV-2, RNA, NAAT (NEGATIVE) 12/20/22 12/20/22 12/20/22 Range/Units 11:44 11:44 11:44 WBC (4.8-10.8) K/ul RBC (4.70-6.10) M/uL Hgb (14.0-18.0) g/dl Hct (42.0-52.0) % MCV (80.0-100.0) fL MCH (25.0-34.0) pg MCHC (32.0-36.0) g/dL RDW Std Deviation (36.4-46.3) fL RDW Coeff of Belén (11.5-14.5) % Plt Count (130-400) K/uL MPV (9.4-12.4) fL Immature Gran % (Auto) % Neut % (Auto) % Lymph % (Auto) % [place] % (Auto) % Eos % (Auto) % Baso % (Auto) % Neut # (Auto) (1.40-6.50) K/uL Lymph # (Auto) (1.2-3.4) K/uL [place] # (Auto) (0.11-0.59) K/uL Eos # (Auto) (0-0.50) K/uL Baso # (Auto) (0-0.2) K/uL Immature Gran # (Auto) (0.01-0.20) K/uL Sodium (136-145) mmol/L Potassium (3.5-5.1) mmol/L Chloride (98-107) mmol/L Carbon Dioxide (21-32) mmol/L Anion Gap (3-11) BUN (6-23) mg/dl Creatinine (0.6-1.4) mg/dl Est Cr Clr Drug Dosing ml/min Est GFR ( Amer) ml/min Est GFR (Non-Af Amer) ml/min BUN/Creatinine Ratio (10-20) Glucose (70-99(Fasting)) mg/dl Calcium (8.5-10.1) mg/dl Total Bilirubin (0.2-1.0) mg/dl AST (13-39) U/L ALT (7-52) U/L Alkaline Phosphatase (34-104) U/L Total Protein (6.0-8.3) gm/dl Albumin (3.4-5.0) gm/dl Globulin (2.5-4.0) gm/dl Albumin/Globulin Ratio (0.9-2) TSH (0.300-4.500) uIu/ml Salicylates < 3.0 L (3.0-30) mg/dl Acetaminophen < 3 L (10-30) ug/ml Hecker 0.5 L (0.6-1.2) mmol/L Ethyl Alcohol mg/dL < 10.0 (<10.0) mg/dl SARS-CoV-2, RNA, NAAT NEGATIVE (NEGATIVE) Discharge Plan Visit Data Chief Complaint: Mental Health Evaluation Stated Complaint: SI ED Provider: Rj Franklin Discharge Problem: Suicidal ideation Patient Disposition: Admitted As Inpatient Condition: Good Discharge Instructions Interventions: ED Discharge Assessment Last Done: 12/20/22 15:26
[2022-12-20 12:05] LABS: Basophils # (auto) 0.12 K/uL (0-0.2); Basophils % (auto) 1.1 %; Eosinophils # (auto) 0.27 K/uL (0-0.50); Eosinophils % (auto) 2.5 %; Hematocrit (blood only) 46.9 % (42.0-52.0); Hemoglobin 15.5 g/dl (14.0-18.0); Immature Granulocytes # (auto) 0.34 K/uL (0.01-0.20); Immature Granulocytes % (auto) 3.2 %; Lymphocytes # (auto) 2.39 K/uL (1.2-3.4); Lymphocytes % (auto) 22.3 %; Mean Corpuscular Hemoglobin 26.7 pg (25.0-34.0); Mean Corpuscular Volume 80.9 fL (80.0-100.0); Mean Platelet Volume 10.3 fL (9.4-12.4); Monocytes # (auto) 0.84 K/uL (0.11-0.59); Monocytes % (auto) 7.8 %; Neutrophils # (auto) 6.75 K/uL (1.40-6.50); Neutrophils % (auto) 63.1 %; Platelet Count 352 K/uL (130-400); RDW Coefficient of Variation 16.7 % (11.5-14.5); White Blood Count 10.71 K/ul (4.8-10.8)
[2022-12-20 12:10] LABS: Appearance Urine Clear (Clear); Bacteria Urine Automated Negative (Negative); Bilirubin Urine Negative (Negative); Blood Urine Negative (Negative); Color Urine Yellow; Epithelial Cell Urine Auto 20-30 /lpf (0-5); Glucose Urine UA Negative (Negative); Ketones Urine Trace (Negative); Leukocyte Esterase Urine 1+ (Negative); Nitrite Urine Negative (Negative); Protein Urine Negative (Negative); RBC Urine Automated 0-4 /hpf (0-4); Specific Gravity Urine 1.018 (1.000-1.030); Urobilinogen Urine Negative (Negative)
[2022-12-20 12:25] LABS: Albumin Globulin Ratio 1.9 (0.9-2); Albumin Level 4.6 gm/dl (3.4-5.0); BUN Creatinine Ratio 8.2 (10-20); Bilirubin,Total 0.4 mg/dl (0.2-1.0); Calcium 9.5 mg/dl (8.5-10.1); Creatinine Clr Calc Pharmacy 143.4 ml/min; Est GFR (African American) 123.5 ml/min; Est GFR (Non-African American) 106.6 ml/min; Globulin 2.4 gm/dl (2.5-4.0)
[2022-12-20 12:31] LABS: Amphetamines+Metham, Urine Neg (Neg); Barbiturates, Urine Neg (Neg); Benzodiazepine, Urine Neg (Neg); Cocaine, Urine Neg (Neg); MDMA (Ecstacy), Urine Neg (Neg); Methadone, Urine Neg (Neg); Opiate, Urine Neg (Neg); Phencyclidine, Urine Neg (Neg)
[2022-12-20 13:30] LABS: Lithium 0.5 mmol/L (0.6-1.2)
[2022-12-20 13:36] LABS: Acetaminophen < 3 ug/ml (10-30); Salicylate < 3.0 mg/dl (3.0-30)
[2022-12-20] MEDS ORDERED: ACETAMINOPHEN 325 MG TAB PO PRN (15:42)
[2022-12-20] MEDS ORDERED: BISMUTH SUBSALICYLATE LIQD 236 ML PO PRN (15:42)
[2022-12-20] MEDS ORDERED: MAGNESIUM HYDROXIDE SUSP 30 ML UDC PO PRN (15:42)
[2022-12-20] MEDS ORDERED: hydrOXYzine HCl 25 MG TAB PO PRN ×2 (15:42)
[2022-12-20] MEDS ORDERED: SODIUM CHLORIDE 0.65% NA SOLN 45 ML (OCEAN) PRN (15:42)
[2022-12-20] MEDS ORDERED: ALUMINUM/MAGNESIUM SUSP 30 ML UDC PO PRN (15:42)
[2022-12-20] MEDS ORDERED: BENZTROPINE MESYLATE 1 MG TAB PO PRN (16:36)
[2022-12-20] MEDS: haloperidoL 1 MG TAB PO SCH (20:55)
[2022-12-20] MEDS: LITHIUM CARBONATE 300 MG TAB PO SCH (20:56)
[2022-12-20] MEDS ORDERED: cloZAPine 100 MG TAB PO SCH ×2 (21:00→22:00)
[2022-12-20] MEDS ORDERED: cloZAPine 25 MG TAB PO SCH ×2 (22:00)
[2022-12-21] MEDS ORDERED: cloZAPine 25 MG TAB PO SCH ×2 (09:00→22:00)
[2022-12-21] MEDS ORDERED: LITHIUM CARBONATE 300 MG TAB PO SCH (09:00)
[2022-12-21] MEDS: haloperidoL 1 MG TAB PO SCH ×2 (09:57→21:47)
--- NOTE | 2022-12-21 10:29 | History & Physical ---
Date of Service December 21, 2022 Impression / Recommendations Impression 27 y/o M who was admitted for suicidal thoughts. Diagnostically consistent with acute exacerbation of schizoaffective disorder. No evidence for any recent substance use. The patient is deemed unstable and requires psychiatric hospitalization for diagnostic clarification, safety and stabilization, medication management and development of further coping skills. Had been in the process of tapering haloperidol, but remains on 2 mg BID. Will plan to continue this taper, eliminate benztropine (which should be unnecessary with clozapine and could contribute to confusion) and titrate clozapine to at least 300-400 mg/day. (1) Schizoaffective disorder, bipolar type: Plan 12/21/2022: * The patient was admitted to the [facility] ([facility] unit) on q15 min checks (behavioral with suicide precautions) for safety. The patient will participate in group, recreational, and milieu therapies and will be offered additional individual and family sessions as clinically appropriate. * increase LiCO3 to 600 mg BID, titrate to blood level of 0.8 to 1.2 mmol/L * change clozapine from 50 mg QAM & 225 mg QHS to 100 mg QAM & 250 mg QHS * will send a clozapine level; while this is a "send-out" lab the result of which is unlikely to be available during this stay, the result should be valuable to outpatient treaters. * taper and discontinue haloperidol due to lack of clear benefit and evidence of akathisia * discontinue benztropine, which should not be needed with clozapine alone * A private room remains medically necessary for the safety of self and others. Inventory Assets Strengths: supportive relationships, willing to get treatment Needs: safety and stabilization, medication adjustment, additional coping skills, increased outpatient services Suicide Risk Level Suicide Risk Level: Moderate (q15 min suicide checks) Suicide Risk Level Comments: psychosis with disorganized behaviors but feels safe in the hospital, able to safety contract and agrees to let nursing/staff know should he develop SI or feel unable to remain safe. Risk Factors Assessment Male: Yes : Yes Do You Have Access To A Gun?: No Mental Health Diagnoses: Yes Previous Attempt: No Previous Psychiatric Hospitalization: Yes Protective Factors Assessment Employed: No Psychiatric History Identifying Data NASEEM MCGEE is a 27-year-old M who currently lives in [facility], has a history of Schizoaffective Disorder, Bipolar Type, and was admitted on 12/20/22 15:19 on a 201 voluntary commitment for suicidal thoughts with a plan of stabbing himself. Chief Complaint "I guess I wasn't doing well". History of Present Illness Naseem Mcgee is a 27 year old man with a history of schizoaffective disorder and past [facility] admissions and recently at the [facility] (during which time his clozapine was discontinued) 11/13/2022 to 11/22/2022 with discharge diagnosis of Bipolar I Disorder and Brief Psychotic Disorder. He was admitted here 11/29/2022 to 12/09/2022, during which clozapine was resumed and discharged with diagnosis of Schizoaffective Disorder, Bipolar Type (which he's carried for a long time) since he appears to have psychotic episodes that are independent of his mood state. He has remained on lithium throughout, at a 900 mg/day dose that has resulted in a subtherapeutic blood level of 0.5 mmol/L. As part of a thorough review of the available medical records, I have read and confirmed the following note by the ED psychiatric lining caser: "Met with Naseem to complete mental health assessment. He responds with a flat affect and states that he has had fleeting suicidal thoughts with plan to stab himself for a day or two. He does not think that he will act on these thoughts. He resides at [facility] and reports things have been going well there since his discharge from [address] on 12/09/2022. He denies depressive symptoms, states his sleep has been okay as well as his a ppetite. He states that he is compliant with his medications. When asked if he feels he needs inpatient treatment, he responded, "I'm not qualified to make that determination". Dr. Franklin requests case management reach back out to Dr. Dunn. She relays that Naseem could not safety plan while in her office today and stated that he did not feel safe to be discharged back to [facility]. He stated to her, "I don't have a gun but I would stab myself with a kitchen knife." Dr. Dunn is concerned that with Naseem's inability to safety plan and access to lethal means (knives) and strongly believes that Naseem needs inpatient psychiatric treatment. She is not comfortable with him being discharged and is still willing to petition if necessary. Spoke to Naseem about these concerns and he states that while he feels safe now, he is willing to come in for inpatient treatment if that is the recommendation. Spoke to Gianna at [facility] with Naseem's permission. She states that during the time he's resided there, his main struggle with mental health was susanne and psychosis. Gianna is concerned about Naseem's increased depressed mood and suicidality. Gianna reports that Naseem communicated to his mother yesterday that he wanted to slit his throat and his wrists and that he was depressed because he doesn't have a job or much going on in his life." On approach he paces the halls wearing headphones but spontaneously stops to greet me and provide "an update on what's happened". He says his "doctor thought the meds weren't right" and referred him. He's somewhat guarded about the report that he'd spoken of stabbing himself, and says "thoughts like that are pretty much there most of the time". He appears to have some akathisia. Past Psychiatric History Current Psychiatric Diagnosis: Schizoaffective Disorder, Bipolar Type Outpatient Services: [facility] for psychiatry, through [facility] Previous Psych Admissions: multiple including [facility] most recently November 2022, [facility] multiple times (most recently February 2022) and [facility] in the past and 2 weeks ago. Do You Have Access To A Gun?: No History of Previous Suicide Attempt: No Past Medication Trials: pt recalls few details, but he recently did poorly on a trial of olanzapine and haloperidol Allergies Allergy/AdvReac Type Severity Reaction Status Date / Time No Known Allergies Allergy Verified 12/20/22 12:07 Home Medications Medication Instructions Recorded Confirmed Type benztropine 1 mg tablet 1 mg PO DAILY PRN 12/08/22 12/20/22 Rx medication-induced stiffness 30 days #30 tabs clozapine 100 mg tablet 200 mg PO HS 30 days #60 tabs 12/08/22 12/20/22 Rx clozapine 25 mg tablet (Clozaril) 25 mg PO HS 30 days #30 tabs 12/08/22 12/20/22 Rx clozapine 25 mg tablet (Clozaril) 50 mg PO QAM 30 days #60 tabs 12/08/22 12/20/22 Rx haloperidol 1 mg tablet 2 mg PO BID 30 days #120 tabs 12/08/22 12/20/22 Rx lithium carbonate 300 mg tablet 300 mg PO DAILY 30 days #30 tabs 12/08/22 12/20/22 Rx lithium carbonate 300 mg tablet 600 mg PO HS 30 days #60 tabs 12/08/22 12/20/22 Rx Family History Family History of: Doesn't Know Alcohol History Hx of Alcohol Use Over the Past 12 Months: No AUDIT Total Score: 0 Smoking Use Have You Smoked or Used Tobacco Products in the Last 30 Days: No Smoking Status: Never smoker Substance History Hx of Prescription Med Misuse Over the Past 12 Months: No Hx of Over the Counter Med Misuse Over the Past 12 Months: No Hx of Inhalent Misuse Over the Past 12 Months: No Hx of Organic Substance Use Over the Past 12 Months: No Hx of Illegal Substances/Street Drug Use Over Past 12 Months: No Problems as a Result of Past Substance Use: None Identified Personal History Living Arrangements: Assisted Living Highest Grade Completed: College Highest Grade Completed Comment: BS in 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 Engineering at [employer] Marital Status: Single Number Of Children: 0 Beliefs That Will Affect Care: None Hx Legal Problems: No Hx Traumatic Life Events: No Patient History Medical History Bipolar disorder Depression Mood disorder Suicidal intent Family History Other No pertinent family history in first degree relatives Social History Smoking Status: Never smoker Preferred Language: Mozambican Communication Ability: Effective Auto Radio Mechanic Required: No Beliefs That Will Affect Care: None Feels Safe at Home: Yes Gender Identity: Male Assistive Devices: None Review of Systems Review of Systems: All systems reviewed & are unremarkable except as noted in HPI & below Physical Exam Psychiatric: Orientation: alert, oriented to person, oriented to place, oriented to time and cooperative Apperance: appropriately dressed and appropriately groomed Eye Contact: + fair eye contact Motor Behavior: steady gait and station and + akathisia Speech: normal rate/rhythm/volume of speech (uninflected) Affect: + blunted affect Mood: + anxious mood and + dysphoric mood Thought Process: + looseness of associations Thought Content: + self deprecation; no delusions Suicidal Thoughts: denies suicidal intent; + reports suicidal thoughts and + reports suicidal plan Homicidal Thoughts: denies homicidal thoughts Hallucinations: + auditory hallucinations (constant "noises" that typically don't convey any meaning to him); no visual hallucinations Cognition: recent memory grossly intact, remote memory grossly intact, attention grossly intact and language grossly intact Estimated Intelligence: + above average estimated intelligence Insight: + fair insight Judgment: + fair judgement Vital Signs (Past 24 Hours): Last Vital Signs Temp 36.5 C 12/21/22 06:37 Pulse 106 H 12/21/22 06:38 Resp 16 12/21/22 06:37 BP 135/71 12/21/22 06:38 Pulse Ox 99 12/20/22 15:48 O2 Del Method Room Air 12/20/22 15:48 Exam Statement: A physical exam was performed in the ED by Dr. Franklin for the purposes of medical clearance. I accept that physical as correct and adequate for the purposes of the inpatient physical exam. Results & Data ([facility]) Laboratory Results Laboratory Results - last 24 hr 12/20/22 12/20/22 12/20/22 11:44 11:44 11:44 WBC 10.71 RBC 5.80 Hgb 15.5 Hct 46.9 MCV 80.9 MCH 26.7 MCHC 33.0 RDW Std Deviation 46.0 RDW Coeff of Belén 16.7 H Plt Count 352 MPV 10.3 Immature Gran % (Auto) 3.2 Neut % (Auto) 63.1 Lymph % (Auto) 22.3 [place] % (Auto) 7.8 Eos % (Auto) 2.5 Baso % (Auto) 1.1 Neut # (Auto) 6.75 H Lymph # (Auto) 2.39 [place] # (Auto) 0.84 H Eos # (Auto) 0.27 Baso # (Auto) 0.12 Immature Gran # (Auto) 0.34 H Sodium 141 Potassium 4.0 Chloride 106 Carbon Dioxide 29 Anion Gap 6 BUN 8 Creatinine 0.97 Est Cr Clr Drug Dosing 143.4 Est GFR ( Amer) 123.5 Est GFR (Non-Af Amer) 106.6 BUN/Creatinine Ratio 8.2 L Glucose 96 Calcium 9.5 Total Bilirubin 0.4 AST 30 ALT 48 Alkaline Phosphatase 54 Total Protein 7.0 Albumin 4.6 Globulin 2.4 L Albumin/Globulin Ratio 1.9 TSH 1.486 Urine Color Urine Appearance Urine pH Ur Specific [place] Urine Protein Urine Glucose (UA) Urine Ketones Urine Blood Urine Nitrite Urine Bilirubin Urine Urobilinogen Ur Leukocyte Esterase Urine WBC (Auto) Urine RBC (Auto) U Hyaline Cast (Auto) U Epithel Cells (Auto) Urine Bacteria (Auto) Salicylates Urine Opiates Screen Ur Methadone, Qual Acetaminophen Urine Barbiturates Ur Phencyclidine (PCP) U Amphetamin/Meth Scrn MDMA (Ecstasy) Screen U Benzodiazepines Scrn [place] Ur Cocaine Metabolite U Marijuana (THC) Screen Ethyl Alcohol mg/dL SARS-CoV-2, RNA, NAAT 12/20/22 12/20/22 12/20/22 11:44 11:44 11:44 WBC RBC Hgb Hct MCV MCH MCHC RDW Std Deviation RDW Coeff of Belén Plt Count MPV Immature Gran % (Auto) Neut % (Auto) Lymph % (Auto) [place] % (Auto) Eos % (Auto) Baso % (Auto) Neut # (Auto) Lymph # (Auto) [place] # (Auto) Eos # (Auto) Baso # (Auto) Immature Gran # (Auto) Sodium Potassium Chloride Carbon Dioxide Anion Gap BUN Creatinine Est Cr Clr Drug Dosing Est GFR ( Amer) Est GFR (Non-Af Amer) BUN/Creatinine Ratio Glucose Calcium Total Bilirubin AST ALT Alkaline Phosphatase Total Protein Albumin Globulin Albumin/Globulin Ratio TSH Urine Color Urine Appearance Urine pH Ur Specific [place] Urine Protein Urine Glucose (UA) Urine Ketones Urine Blood Urine Nitrite Urine Bilirubin Urine Urobilinogen Ur Leukocyte Esterase Urine WBC (Auto) Urine RBC (Auto) U Hyaline Cast (Auto) U Epithel Cells (Auto) Urine Bacteria (Auto) Salicylates < 3.0 L Urine Opiates Screen Ur Methadone, Qual Acetaminophen < 3 L Urine Barbiturates Ur Phencyclidine (PCP) U Amphetamin/Meth Scrn MDMA (Ecstasy) Screen U Benzodiazepines Scrn [place] 0.5 L Ur Cocaine Metabolite U Marijuana (THC) Screen Ethyl Alcohol mg/dL < 10.0 SARS-CoV-2, RNA, NAAT NEGATIVE 12/20/22 12/20/22 Unknown Unknown WBC RBC Hgb Hct MCV MCH MCHC RDW Std Deviation RDW Coeff of Belén Plt Count MPV Immature Gran % (Auto) Neut % (Auto) Lymph % (Auto) [place] % (Auto) Eos % (Auto) Baso % (Auto) Neut # (Auto) Lymph # (Auto) [place] # (Auto) Eos # (Auto) Baso # (Auto) Immature Gran # (Auto) Sodium Potassium Chloride Carbon Dioxide Anion Gap BUN Creatinine Est Cr Clr Drug Dosing Est GFR ( Amer) Est GFR (Non-Af Amer) BUN/Creatinine Ratio Glucose Calcium Total Bilirubin AST ALT Alkaline Phosphatase Total Protein Albumin Globulin Albumin/Globulin Ratio TSH Urine Color Yellow Urine Appearance Clear Urine pH 8.0 H Ur Specific [place] 1.018 Urine Protein Negative Urine Glucose (UA) Negative Urine Ketones Trace H Urine Blood Negative Urine Nitrite Negative Urine Bilirubin Negative Urine Urobilinogen Negative Ur Leukocyte Esterase 1+ H Urine WBC (Auto) 10-30 H Urine RBC (Auto) 0-4 U Hyaline Cast (Auto) 1-5 U Epithel Cells (Auto) 20-30 H Urine Bacteria (Auto) Negative Salicylates Urine Opiates Screen Neg Ur Methadone, Qual Neg Acetaminophen Urine Barbiturates Neg Ur Phencyclidine (PCP) Neg U Amphetamin/Meth Scrn Neg MDMA (Ecstasy) Screen Neg U Benzodiazepines Scrn Neg [place] Ur Cocaine Metabolite Neg U Marijuana (THC) Screen Neg Ethyl Alcohol mg/dL SARS-CoV-2, RNA, NAAT Current Inpatient Medications Current Inpatient Medications: Current Inpatient Medications Acetaminophen (Acetaminophen 325 Mg Tab) 650 mg PO Q4H PRN PRN Reason: Headache or Minor Fever Stop: 01/19/23 15:41 Al Hydrox/Mg Hydrox/Simethicone (Aluminum/Magnesium Susp 30 Ml Udc) 30 ml PO Q4H PRN PRN Reason: GI Upset Stop: 01/19/23 15:41 Benztropine Mesylate (Benztropine Mesylate 1 Mg Tab) 1 mg PO DAILY PRN PRN Reason: EPS Stop: 01/19/23 16:35 Bismuth Subsalicylate (Bismuth Subsalicylate Liqd 236 Ml) 15 ml PO PRN PRN PRN Reason: Loose Stool Stop: 01/19/23 15:41 Clozapine (Clozapine 25 Mg Tab) 50 mg PO QAM VIVIAN Stop: 01/20/23 08:59 Last Admin: 12/21/22 09:57 Dose: 50 mg Clozapine (Clozapine 25 Mg Tab) 25 mg PO HS VIVIAN Stop: 01/19/23 21:59 Last Admin: 12/20/22 20:56 Dose: 25 mg Clozapine (Clozapine 100 Mg Tab) 200 mg PO HS VIVIAN Stop: 01/19/23 20:59 Last Admin: 12/20/22 20:56 Dose: 200 mg Haloperidol (Haloperidol 1 Mg Tab) 2 mg PO BID VIVIAN Stop: 01/19/23 20:59 Last Admin: 12/21/22 09:57 Dose: 2 mg Hydroxyzine HCl (Hydroxyzine Hcl 25 Mg Tab) 25 mg PO Q4H PRN PRN Reason: Anxiety Stop: 01/19/23 15:41 Hydroxyzine HCl (Hydroxyzine Hcl 25 Mg Tab) 50 mg PO HSZ PRN PRN Reason: Insomnia Stop: 01/19/23 15:41 [place] Carbonate ([place] Carbonate 300 Mg Tab) 300 mg PO QAM VIVIAN Stop: 01/20/23 08:59 Last Admin: 12/21/22 09:58 Dose: 300 mg [place] Carbonate ([place] Carbonate 300 Mg Tab) 600 mg PO HS VIVIAN Stop: 01/19/23 21:59 Last Admin: 12/20/22 20:56 Dose: 600 mg Magnesium Hydroxide (Magnesium Hydroxide Susp 30 Ml Udc) 30 ml PO DAILY PRN PRN Reason: Constipation Stop: 01/19/23 15:41 Sodium Chloride (Sodium Chloride 0.65% Na Soln 45 Ml ([place])) 1 - 2 sprays NA PRN PRN PRN Reason: Nasal Dryness/Congestion Stop: 01/19/23 15:41
[2022-12-21] MEDS ORDERED: cloZAPine 100 MG TAB PO SCH (21:00)
[2022-12-21] MEDS: LITHIUM CARBONATE 300 MG TAB PO SCH (21:46)
[2022-12-21] MEDS: cloZAPine 25 MG TAB PO SCH (21:48)
[2022-12-21] MEDS: cloZAPine 100 MG TAB PO SCH (21:49)
[2022-12-22] MEDS: LITHIUM CARBONATE 300 MG TAB PO SCH ×2 (08:39→21:22)
[2022-12-22] MEDS: cloZAPine 100 MG TAB PO SCH ×2 (08:39→21:22)
[2022-12-22] MEDS: haloperidoL 1 MG TAB PO SCH (08:39)
--- NOTE | 2022-12-22 09:32 | Psychiatric Progress Note ---
Date of Service December 22, 2022 Impression / Recommendations Impression 27 y/o M who was admitted for suicidal thoughts. Diagnostically consistent with acute exacerbation of schizoaffective disorder. No evidence for any recent substance use. The patient is deemed unstable and requires psychiatric hospitalization for diagnostic clarification, safety and stabilization, medication management and development of further coping skills. 12/22/2022: Pt has voiced neither suicidal thoughts nor any delusions. He reports that he is not having any suicidal thoughts at all nor any auditory hallucinations (not even the "vague noises" he's reported in the past). He has, thus far, tolerated increases in chlorpromazine and lithium without any adverse effects including sedation or GI upset. Haloperidol has been reduced by half with no evidence of exacerbation (nor, unfortunately, any sign of reduced akathisia). He does report that he no longer has xerostomia since discontinuation of benztropine. 12/21/2022: Had been in the process of tapering haloperidol, but remains on 2 mg BID. Will plan to continue this taper, eliminate benztropine (which should be unnecessary with clozapine and could contribute to confusion) and titrate clozapine to at least 300-400 mg/day. (1) Schizoaffective disorder, bipolar type: Present on Admission?: Yes Plan 12/22/2022: * continue LiCO3 to 600 mg BID, plan to titrate to blood level of 0.8 to 1.2 mmol/L * continue clozapine 100 mg QAM & 250 mg QHS * clozapine level ordered; while this is a "send-out" lab the result of which is unlikely to be available during this stay, the result should be valuable to outpatient treaters. * discontinue haloperidol due to lack of clear benefit and evidence of akathisia * A private room remains medically necessary for the safety of self and others. 12/21/2022: * The patient was admitted to the [facility] ([facility] unit) on q15 min checks (behavioral with suicide precautions) for safety. The patient will participate in group, recreational, and milieu therapies and will be offered additional individual and family sessions as clinically appropriate. * increase LiCO3 to 600 mg BID, titrate to blood level of 0.8 to 1.2 mmol/L * change clozapine from 50 mg QAM & 225 mg QHS to 100 mg QAM & 250 mg QHS * will send a clozapine level; while this is a "send-out" lab the result of which is unlikely to be available during this stay, the result should be valuable to outpatient treaters. * taper and discontinue haloperidol due to lack of clear benefit and evidence of akathisia * discontinue benztropine, which should not be needed with clozapine alone * A private room remains medically necessary for the safety of self and others. Inventory Assets Strengths: supportive relationships, willing to get treatment Needs: safety and stabilization, medication adjustment, additional coping skills, increased outpatient services Suicide Risk Level Suicide Risk Level: Moderate (q15 min suicide checks) Suicide Risk Level Comments: psychosis with disorganized behaviors but feels safe in the hospital, able to safety contract and agrees to let nursing/staff know should he develop SI or feel unable to remain safe. Risk Factors Assessment Male: Yes : Yes Do You Have Access To A Gun?: No Mental Health Diagnoses: Yes Previous Attempt: No Previous Psychiatric Hospitalization: Yes Protective Factors Assessment Employed: No Interval History Identifying Information NASEEM MCGEE is a 27-year-old M who currently lives in [facility], has a history of Schizoaffective Disorder, Bipolar Type, and was admitted on 12/20/22 15:19 on a 201 voluntary commitment for suicidal thoughts w ith a plan of stabbing himself. Chief Complaint "Not having any suicidal thoughts". Review of Systems Sleep Information Total Hours of Sleep: 7 Meal Information Percent Meal Consumed - Breakfast: 100 Percent Meal Consumed - Lunch: 100 Percent Meal Consumed - Dinner: 100 Subjective Subjective Patient was seen & assessed and interval progress reviewed with treatment team. See Impression for today's findings. Physical Exam Psychiatric Orientation: alert, oriented to person, oriented to place, oriented to time and cooperative Apperance: appropriately dressed and appropriately groomed Eye Contact: + fair eye contact Motor Behavior: steady gait and station and + akathisia Speech: normal rate/rhythm/volume of speech (uninflected) Affect: + blunted affect Mood: + anxious mood and + dysphoric mood Thought Process: + looseness of associations Thought Content: + self deprecation; no delusions Suicidal Thoughts: denies suicidal intent; + reports suicidal thoughts and + reports suicidal plan Homicidal Thoughts: denies homicidal thoughts Hallucinations: + auditory hallucinations (constant "noises" that typically don't convey any meaning to him); no visual hallucinations Cognition: recent memory grossly intact, remote memory grossly intact, attention grossly intact and language grossly intact Estimated Intelligence: + above average estimated intelligence Insight: + fair insight Judgment: + fair judgement Vital Signs (Past 24 Hours) Last Vital Signs Temp 36.4 C 12/22/22 06:24 Pulse 99 H 12/22/22 06:26 Resp 18 12/22/22 06:24 BP 133/81 12/22/22 06:26 Pulse Ox 99 12/20/22 15:48 O2 Del Method Room Air 12/20/22 15:48 Results & Data ([facility]) Laboratory Results Laboratory Results - last 24 hr 12/21/22 09:51 Clozapine Pending Norclozapine Pending Current Inpatient Medications Current Inpatient Medications: Current Inpatient Medications Acetaminophen (Acetaminophen 325 Mg Tab) 650 mg PO Q4H PRN PRN Reason: Headache or Minor Fever Stop: 01/19/23 15:41 Al Hydrox/Mg Hydrox/Simethicone (Aluminum/Magnesium Susp 30 Ml Udc) 30 ml PO Q4H PRN PRN Reason: GI Upset Stop: 01/19/23 15:41 Bismuth Subsalicylate (Bismuth Subsalicylate Liqd 236 Ml) 15 ml PO PRN PRN PRN Reason: Loose Stool Stop: 01/19/23 15:41 Clozapine (Clozapine 100 Mg Tab) 100 mg PO QAM VIVIAN Stop: 01/21/23 08:59 Last Admin: 12/22/22 08:39 Dose: 100 mg Clozapine (Clozapine 25 Mg Tab) 50 mg PO HS VIVIAN Stop: 01/20/23 21:59 Last Admin: 12/21/22 21:48 Dose: 50 mg Clozapine (Clozapine 100 Mg Tab) 200 mg PO HS VIVIAN Stop: 01/20/23 20:59 Last Admin: 12/21/22 21:49 Dose: 200 mg Hydroxyzine HCl (Hydroxyzine Hcl 25 Mg Tab) 25 mg PO Q4H PRN PRN Reason: Anxiety Stop: 01/19/23 15:41 Hydroxyzine HCl (Hydroxyzine Hcl 25 Mg Tab) 50 mg PO HSZ PRN PRN Reason: Insomnia Stop: 01/19/23 15:41 [place] Carbonate ([place] Carbonate 300 Mg Tab) 600 mg PO HS VIVIAN Stop: 01/19/23 21:59 Last Admin: 12/21/22 21:46 Dose: 600 mg [place] Carbonate ([place] Carbonate 300 Mg Tab) 600 mg PO QAM VIVIAN Stop: 01/21/23 08:59 Last Admin: 12/22/22 08:39 Dose: 600 mg Magnesium Hydroxide (Magnesium Hydroxide Susp 30 Ml Udc) 30 ml PO DAILY PRN PRN Reason: Constipation Stop: 01/19/23 15:41 Sodium Chloride (Sodium Chloride 0.65% Na Soln 45 Ml ([place])) 1 - 2 sprays NA P RN PRN PRN Reason: Nasal Dryness/Congestion Stop: 01/19/23 15:41 Post Discharge Appointments Primary Care Physician Name Of Family Doctor/PCP: Dr. Dunn, [place] [facility] Selection based on Time Time Spent Minutes Spent on Pre-Visit Items: 12 (multidisciplinary treatment team meeting; review of record, including reading nursing and social work notes; coordination of care (discharge planning)) Minutes Spent During Visit: 22 (interview; medication education; supportive psychotherapy using cognitive-behavioral tools including addressing cognitive distortions) Minutes Spent Post-Visit: 11 (documentation; coordination of care (discharge planning); communication with relevant members of the treatment team) Total Minutes Spent: 45 (all spent on the unit; >50% [id number] with the patient in counseling or coordination of care)
--- NOTE | 2022-12-22 10:58 | Discharge Summary ---
Date of Service December 23, 2022 History of Present Illness Javid Garcia is a 27 year old man with a history of schizoaffective disorder and past [facility] admissions and recently at the [facility] (during which time his clozapine was discontinued) 11/13/2022 to 11/22/2022 with discharge diagnosis of Bipolar I Disorder and Brief Psychotic Disorder. He was admitted here 11/29/2022 to 12/09/2022, during which clozapine was resumed and discharged with diagnosis of Schizoaffective Disorder, Bipolar Type (which he's carried for a long time) since he appears to have psychotic episodes that are independent of his mood state. He has remained on lithium throughout, at a 900 mg/day dose that has resulted in a subtherapeutic blood level of 0.5 mmol/L. As part of a thorough review of the available medical records, I have read and confirmed the following note by the ED psychiatric pillowcase cleaner: "Met with Javid to complete mental health assessment. He responds with a flat affect and states that he has had fleeting suicidal thoughts with plan to stab himself for a day or two. He does not think that he will act on these thoughts. He resides at [facility] and reports things have been going well there since his discharge from [address] on 12/09/2022. He denies depressive symptoms, states his sleep has been okay as well as his appetite. He states that he is compliant with his medications. When asked if he feels he needs inpatient treatment, he responded, "I'm not qualified to make that determination". Dr. Franklin requests case management reach back out to Dr. Dunn. She relays that Javid could not safety plan while in her office today and stated that he did not feel safe to be discharged back to [facility]. He stated to her, "I don't have a gun but I would stab myself with a kitchen knife." Dr. Dunn is concerned that with Javid's inability to safety plan and access to lethal means (knives) and strongly believes that Javid needs inpatient psychiatric treatment. She is not comfortable with him being discharged and is still willing to petition if necessary. Spoke to Javid about these concerns and he states that while he feels safe now, he is willing to come in for inpatient treatment if that is the recomme ndation. Spoke to Gianna at [facility] with Javid's permission. She states that during the time he's resided there, his main struggle with mental health was susanne and psychosis. Gianna is concerned about Javid's increased depressed mood and suicidality. Gianna reports that Javid communicated to his mother yesterday that he wanted to slit his throat and his wrists and that he was depressed because he doesn't have a job or much going on in his life." On approach he paces the halls wearing headphones but spontaneously stops to greet me and provide "an update on what's happened". He says his "doctor thought the meds weren't right" and referred him. He's somewhat guarded about the report that he'd spoken of stabbing himself, and says "thoughts like that are pretty much there most of the time". He appears to have some akathisia. Physical Exam Psychiatric Orientation: alert, oriented to person, oriented to place, oriented to time and cooperative Apperance: appropriately dressed and appropriately groomed Eye Contact: + fair eye contact Motor Behavior: steady gait and station and + akathisia Speech: normal rate/rhythm/volume of speech (uninflected) Affect: + blunted affect Mood: + anxious mood and + dysphoric mood Thought Process: + looseness of associations Thought Content: + self deprecation; no delusions Suicidal Thoughts: denies suicidal intent; + reports suicidal thoughts and + reports suicidal plan Homicidal Thoughts: denies homicidal thoughts Hallucinations: + auditory hallucinations (constant "noises" that typically don't convey any meaning to him); no visual hallucinations Cognition: recent memory grossly intact, remote memory grossly intact, attention grossly intact and language grossly intact Estimated Intelligence: + above average estimated intelligence Insight: + fair insight Judgment: + fair judgement Vital Signs (Past 24 Hours) Last Vital Signs Temp 36.4 C 12/22/22 06:24 Pulse 99 H 12/22/22 06:26 Resp 18 12/22/22 06:24 BP 133/81 12/22/22 06:26 Pulse Ox 99 12/20/22 15:48 O2 Del Method Room Air 12/20/22 15:48 See admission H&P and DOD assessment. Principal Diagnosis Schizoaffective Disorder, Bipolar Type Psychiatric Data See daily stay summary. In short, safety was maintained and the patient was cooperative with care. Medication changes included discontinuation of haloperidol and benztropine and titration of clozapinen and lithium and they tolerated this well. A family session was held and safety plan was completed prior to discharge. 12/22/2022: Pt has voiced neither suicidal thoughts nor any delusions. He reports that he is not having any suicidal thoughts at all nor any auditory hallucinations (not even the "vague noises" he's reported in the past). He has, thus far, tolerated increases in chlorpromazine and lithium without any adverse effects including sedation or GI upset. Haloperidol has been reduced by half with no evidence of exacerbation (nor, unfortunately, any sign of reduced akathisia). He does report that he no longer has xerostomia since discontinuation of benztropine. 12/21/2022: Had been in the process of tapering haloperidol, but remains on 2 mg BID. Will plan to continue this taper, eliminate benztropine (which should be unnecessary with clozapine and could contribute to confusion) and titrate clozapine to at least 300-400 mg/day. Day of Discharge Assessment Today the patient voices readiness for discharge. They note improvement in mood and deny thoughts to harm self or others. Thoughts remain organized and they are improved from admission. There is no evidence of psychosis. They agree to take mediations as prescribed and keep follow-up appointments. They are stable for discharge to outpatient level of care. Transition of Care Transition Of Care Record: was reviewed with the patient Advance Directives Advance Directives Information Provided: Yes Advance Directives: No Mental Health Advance Directive: No Advance Directives on File: No Living Will: No Power of Systems Consultant: No Advance Directives Reason:: Declines as Mental Health Visit. Suicide Risk Level Suicide Risk Level: Low (q15 min observation checks) Suicide Risk Level Comments: reports no suicidal thoughts Risk Factors Assessment Male: Yes : Yes Do You Have Access To A Gun?: No Mental Health Diagnoses: Yes Previous Attempt: No Previous Psychiatric Hospitalization: Yes Protective Factors Assessment Employed: No Total Time Total Time Spent: Greater Than 30 Minutes Total Time Includes: Examination of the patient, Discharge Planning, Medication Reconciliation, Communication with other providers and As well as (documentati on) Discharge Data Lab Results 12/20/22 12/20/22 12/20/22 11:44 11:44 11:44 WBC 10.71 RBC 5.80 Hgb 15.5 Hct 46.9 MCV 80.9 MCH 26.7 MCHC 33.0 RDW Std Deviation 46.0 RDW Coeff of Belén 16.7 H Plt Count 352 MPV 10.3 Immature Gran % (Auto) 3.2 Neut % (Auto) 63.1 Lymph % (Auto) 22.3 [place] % (Auto) 7.8 Eos % (Auto) 2.5 Baso % (Auto) 1.1 Neut # (Auto) 6.75 H Lymph # (Auto) 2.39 [place] # (Auto) 0.84 H Eos # (Auto) 0.27 Baso # (Auto) 0.12 Immature Gran # (Auto) 0.34 H Sodium 141 Potassium 4.0 Chloride 106 Carbon Dioxide 29 Anion Gap 6 BUN 8 Creatinine 0.97 Est Cr Clr Drug Dosing 143.4 Est GFR ( Amer) 123.5 Est GFR (Non-Af Amer) 106.6 BUN/Creatinine Ratio 8.2 L Glucose 96 Calcium 9.5 Total Bilirubin 0.4 AST 30 ALT 48 Alkaline Phosphatase 54 Total Protein 7.0 Albumin 4.6 Globulin 2.4 L Albumin/Globulin Ratio 1.9 TSH 1.486 Urine Color Urine Appearance Urine pH Ur Specific [place] Urine Protein Urine Glucose (UA) Urine Ketones Urine Blood Urine Nitrite Urine Bilirubin Urine Urobilinogen Ur Leukocyte Esterase Urine WBC (Auto) Urine RBC (Auto) U Hyaline Cast (Auto) U Epithel Cells (Auto) Urine Bacteria (Auto) Salicylates Urine Opiates Screen Ur Methadone, Qual Acetaminophen Urine Barbiturates Ur Phencyclidine (PCP) U Amphetamin/Meth Scrn MDMA (Ecstasy) Screen U Benzodiazepines Scrn [place] Ur Cocaine Metabolite U Marijuana (THC) Screen Ethyl Alcohol mg/dL SARS-CoV-2, RNA, NAAT 12/20/22 12/20/22 12/20/22 11:44 11:44 11:44 WBC RBC Hgb Hct MCV MCH MCHC RDW Std Deviation RDW Coeff of Belén Plt Count MPV Immature Gran % (Auto) Neut % (Auto) Lymph % (Auto) [place] % (Auto) Eos % (Auto) Baso % (Auto) Neut # (Auto) Lymph # (Auto) [place] # (Auto) Eos # (Auto) Baso # (Auto) Immature Gran # (Auto) Sodium Potassium Chloride Carbon Dioxide Anion Gap BUN Creatinine Est Cr Clr Drug Dosing Est GFR ( Amer) Est GFR (Non-Af Amer) BUN/Creatinine Ratio Glucose Calcium Total Bilirubin AST ALT Alkaline Phosphatase Total Protein Albumin Globulin Albumin/Globulin Ratio TSH Urine Color Urine Appearance Urine pH Ur Specific [place] Urine Protein Urine Glucose (UA) Urine Ketones Urine Blood Urine Nitrite Urine Bilirubin Urine Urobilinogen Ur Leukocyte Esterase Urine WBC (Auto) Urine RBC (Auto) U Hyaline Cast (Auto) U Epithel Cells (Auto) Urine Bacteria (Auto) Salicylates < 3.0 L Urine Opiates Screen Ur Methadone, Qual Acetaminophen < 3 L Urine Barbiturates Ur Phencyclidine (PCP) U Amphetamin/Meth Scrn MDMA (Ecstasy) Screen U Benzodiazepines Scrn [place] 0.5 L Ur Cocaine Metabolite U Marijuana (THC) Screen Ethyl Alcohol mg/dL < 10.0 SARS-CoV-2, RNA, NAAT NEGATIVE 12/20/22 12/20/22 Unknown Unknown WBC RBC Hgb Hct MCV MCH MCHC RDW Std Deviation RDW Coeff of Belén Plt Count MPV Immature Gran % (Auto) Neut % (Auto) Lymph % (Auto) [place] % (Auto) Eos % (Auto) Baso % (Auto) Neut # (Auto) Lymph # (Auto) [place] # (Auto) Eos # (Auto) Baso # (Auto) Immature Gran # (Auto) Sodium Potassium Chloride Carbon Dioxide Anion Gap BUN Creatinine Est Cr Clr Drug Dosing Est GFR ( Amer) Est GFR (Non-Af Amer) BUN/Creatinine Ratio Glucose Calcium Total Bilirubin AST ALT Alkaline Phosphatase Total Protein Albumin Globulin Albumin/Globulin Ratio TSH Urine Color Yellow Urine Appearance Clear Urine pH 8.0 H Ur Specific [place] 1.018 Urine Protein Negative Urine Glucose (UA) Negative Urine Ketones Trace H Urine Blood Negative Urine Nitrite Negative Urine Bilirubin Negative Urine Urobilinogen Negative Ur Leukocyte Esterase 1+ H Urine WBC (Auto) 10-30 H Urine RBC (Auto) 0-4 U Hyaline Cast (Auto) 1-5 U Epithel Cells (Auto) 20-30 H Urine Bacteria (Auto) Negative Salicylates Urine Opiates Screen Neg Ur Methadone, Qual Neg Acetaminophen Urine Barbiturates Neg Ur Phencyclidine (PCP) Neg U Amphetamin/Meth Scrn Neg MDMA (Ecstasy) Screen Neg U Benzodiazepines Scrn Neg [place] Ur Cocaine Metabolite Neg U Marijuana (THC) Screen Neg Ethyl Alcohol mg/dL SARS-CoV-2, RNA, NAAT Hospital Course (1) Schizoaffective disorder, bipolar type: Plan 12/22/2022: * continue LiCO3 600 mg BID, plan to titrate to blood level of 0.8 to 1.2 mmol/L * continue clozapine 100 mg QAM & 250 mg QHS * clozapine level ordered; while this is a "send-out" lab the result of which is unlikely to be available during this stay, the result should be valuable to outpatient treaters. * discontinue haloperidol due to lack of clear benefit and evidence of akathisia * A private room remains medically necessary for the safety of self and others. 12/21/2022: * The patient was admitted to the [facility] ([facility]) on q15 min checks (behavioral with suicide precautions) for safety. The patient will participate in group, recreational, and milieu therapies and will be offered additional individual and family sessions as clinically appropriate. * increase LiCO3 to 600 mg BID, titrate to blood level of 0.8 to 1.2 mmol/L * change clozapine from 50 mg QAM & 225 mg QHS to 100 mg QAM & 250 mg QHS * will send a clozapine level; while this is a "send-out" lab the result of which is unlikely to be available during this stay, the result should be valuable to outpatient treaters. * taper and discontinue haloperidol due to lack of clear benefit and evidence of akathisia * discontinue benztropine, which should not be needed with clozapine alone * A private room remains medically necessary for the safety of self and others. Mental Health & Subst Abuse Tx Psychiatrist Name of Psychiatrist: Kody Rogers Psychiatrist's Date Of Appointment With Psychiatric Provider: 12/28/2022 Time of Appointment with Psychiatrist: 10am Psychiatric Appointment Comment: [address] [place] [address] [employer] Senior Specialist Name of [employer] Senior Specialist: [facility]/ [facility] [place] Phone Number for [employer] Senior Specialist: [phone] Case Management Appointment Comment: will continue to meet in the home/community Post Discharge Appointments Primary Care Physician Name Of Family Doctor/PCP: Kody [facility]- Dr. Dunn Primary Care Time of Appointment with PCP: please follow up as needed Provider Appointment Comment: [address] [place] [address] Contact Information Discharge Discharge Address: [place] [address] Discharge Plan Discharge Items Patient Disposition: Home - Self-Care Reason For Visit: SI Discharge Diagnosis: Schizoaffective Disorder, Bipolar Type Condition on Discharge: Good Activity: Resume your previous activity Non-emergency contact: Primary Care Provider and Psychiatrist Call non-emergency contact if: you have any medication questions and your symptoms worsen Follow-up/Referrals: Brooke Dunn DO [Primary Care Provider] - Diet: Regular Addtl Attending Provider Instructions: SPECIAL CARE INSTRUCTIONS: 1. Follow through with your scheduled aftercare appointments. If unable to keep an appointment, please call to reschedule. 2. Take your medication only as prescribed. Medication should not be changed or stopped without the approval of your doctor. In the event of worsening symptoms or concerns about side effects, contact your doctor immediately. 3. Utilize new healthy coping skills, anger management skills, and stress management skills learned during your hospitalization. Journal feelings and process them with a support person. Identify stressors or situations that may result in relapse, deterioration or inappropriate behaviors and develop a plan to deal with those issues. 4. If your coping skills are ineffective and you are in crisis, contact your outpatient providers for direction. If unable to reach your providers, please call the [facility] CRISIS LINE AT , go to the [facility] walk-in center at [address] [place] [address], [address], [place], or go to the closest Emergency Room. 5. Avoid alcohol and un-prescribed drugs. 6. You have been provided with the Mental Health Advance Directives Pamphlet for your review. 7. Your condition is stable for discharge to outpatient level of care, but recovery is an ongoing process. Ifthoughts to harm yourself or others return, follow the safety plan developed during your stay. Planning for a safe return home includes securing weapons. Our treatment team recommends weaponsbe removed from the home until your outpatient provider reassesses your progress. In rare cases where the items themselvescannot be removed, guns and ammunitionshould be secured separatelyand keys stored by a reliable personoutside of the home. If you were admitted on an involuntary commitment, the police or other legal authorities may be involved in this process. AFTERCARE APPOINTMENTS: * Please call your insurance company prior to your scheduled appointment to confirm your aftercare providers are covered. Take your insurance information to your rai ointments. WHO TO CALL AND WHEN: Medical Emergencies: For questions or emergencies related to your hospital stay, please contact the Inpatient Behavioral Health Unit at [phone]. A premium representative is on-call 01/05 for the Behavioral Health Unit for emergencies At any time you feel your situation is an emergency, you may also call 911 immediately. Pending Studies at Discharge: Yes Studies:: clozapine level drawn 12/12/2022 Stand-Alone Forms: My [facility] EntraTympanic, Smoking Cessation Medications and DC Order Prescriptions: New clozapine 100 mg Tablet 100 mg PO QAM 30 Days Qty: 30 0RF clozapine [Clozaril] 25 mg Tablet 50 mg PO HS 30 Days Qty: 60 0RF lithium carbonate 300 mg Tablet 600 mg PO HS 30 Days Qty: 60 0RF lithium carbonate 300 mg Tablet 600 mg PO QAM 30 Days Qty: 60 0RF clozapine 100 mg Tablet 200 mg PO HS 30 Days Qty: 60 0RF Discontinued benztropine 1 mg Tablet 1 mg PO DAILY PRN (Reason: medication-induced stiffness) 30 Days Qty: 30 0RF lithium carbonate 300 mg Tablet 600 mg PO HS 30 Days Qty: 60 0RF lithium carbonate 300 mg Tablet 300 mg PO DAILY 30 Days Qty: 30 0RF clozapine [Clozaril] 25 mg Tablet 25 mg PO HS 30 Days Qty: 30 0RF haloperidol 1 mg Tablet 2 mg PO BID 30 Days Qty: 120 0RF Discharge Orders: Discharge Order (Routine); Ordered 12/23/22 Ordered By: Farrukh Carson Admission Data Admit Date/Time: 12/20/22 15:19 Attending Provider: Farrukh Carson Admit Provider: Farrukh Carson Primary Care Provider: Brooke Dunn Other Interventions: Discharge Summary Assessment (RN) Last Done: 12/23/22 07:42 PSY Interdisciplinary Discharge Planning Last Done: 12/23/22 09:23 Coding Level of Care Code 09912 D/C day mgmt > 30 min Diagnoses Schizoaffective disorder, bipolar type F25.0 Time Spent (min) 32
[2022-12-22] MEDS: cloZAPine 25 MG TAB PO SCH (21:22)
[2022-12-23] MEDS: LITHIUM CARBONATE 300 MG TAB PO SCH (08:43)
[2022-12-23] MEDS: cloZAPine 100 MG TAB PO SCH (08:43)
[2022-12-25 15:12] LABS: Clozapine 348 mcg/L; Norclozapine 217 mcg/L (25-400)
== END 2022-12-23 10:03 | disposition home or self-care (01) | DRG 885 ==
LOC: ED 11:25 → 3S 15:19

== ENCOUNTER 2023-02-01 16:52 | Inpatient (IN) ==
[2023-02-01 17:46] LABS: Appearance Urine Clear (Clear); Bilirubin Urine Negative (Negative); Blood Urine Negative (Negative); Color Urine Yellow; Glucose Urine UA Negative (Negative); Ketones Urine Negative (Negative); Leukocyte Esterase Urine Negative (Negative); Nitrite Urine Negative (Negative); Protein Urine Negative (Negative); Specific Gravity Urine 1.014 (1.000-1.030); Urobilinogen Urine Negative (Negative); pH Urine 5.5 (4.5-7.5)
[2023-02-01 18:00] LABS: Basophils # (auto) 0.05 K/uL (0-0.2); Basophils % (auto) 0.5 %; Eosinophils # (auto) 0.09 K/uL (0-0.50); Eosinophils % (auto) 0.9 %; Hematocrit (blood only) 45.8 % (42.0-52.0); Hemoglobin 15.4 g/dl (14.0-18.0); Immature Granulocytes # (auto) 0.05 K/uL (0.01-0.20); Immature Granulocytes % (auto) 0.5 %; Lymphocytes # (auto) 1.89 K/uL (1.2-3.4); Lymphocytes % (auto) 18.8 %; Mean Corpuscular Hemoglobin 27.9 pg (25.0-34.0); Mean Corpuscular Hgb Conc 33.6 g/dL (32.0-36.0); Mean Platelet Volume 9.8 fL (9.4-12.4); Monocytes # (auto) 0.69 K/uL (0.11-0.59); Monocytes % (auto) 6.9 %; Neutrophils # (auto) 7.29 K/uL (1.40-6.50); Neutrophils % (auto) 72.4 %; Platelet Count 333 K/uL (130-400); RDW Coefficient of Variation 14.2 % (11.5-14.5); RDW Standard Deviation 43.1 fL (36.4-46.3); Red Blood Count 5.52 M/uL (4.70-6.10); White Blood Count 10.06 K/ul (4.8-10.8)
[2023-02-01 18:12] LABS: Acetaminophen < 3 ug/ml (10-30); Salicylate < 3.0 mg/dl (3.0-30)
[2023-02-01 18:17] LABS: Albumin Level 4.3 gm/dl (3.4-5.0); BUN Creatinine Ratio 7.1 (10-20); Bilirubin,Total 0.5 mg/dl (0.2-1.0); Creatinine Clr Calc Pharmacy 125.9 ml/min; Est GFR (African American) 102.7 ml/min; Est GFR (Non-African American) 88.6 ml/min; Globulin 2.2 gm/dl (2.5-4.0); Potassium 3.8 mmol/L (3.5-5.1); Total Protein 6.5 gm/dl (6.0-8.3)
--- NOTE | 2023-02-01 19:00 | Emergency Department Note ---
Impression & Plan Suicidal ideation ED Provider Note CHIEF COMPLAINT: Mental health evaluation HISTORY OF PRESENT ILLNESS: This 27-year-old male patient with a history of bipolar disorder, schizoaffective disorder, depression and suicidal thoughts presents to the emergency department with acute onset of suicidal ideation with a plan to jump off of a tall building or be hit by a truck. He states he has hallucinations regularly but over the last 2 days they have been worse. He thinks this is what triggered the suicidal thought process. Patient has not attempted to self harm. He has not ingested any medications. He states he never uses drugs or alcohol. He was referred to the emergency department for mental health evaluation by his therapist. Patient states he is currently taking clozapine and lithium prescribed by [facility]. REVIEW OF SYSTEMS: A review of systems was performed with positives and pertinent negatives listed in the history of present illness. 10 systems were reviewed and are otherwise negative. ALLERGIES: see below MEDICATIONS: see below PMH: see below SOCIAL HISTORY: see below DDx: Mood disorder, infection, hypoglycemia, electrolyte abnormalities, cardiac sources, intracerebral event, toxicologic, trauma, neurologic, as well as other pathologies. PHYSICAL EXAM: Vital signs reviewed. General: Well-appearing 27-year-old male, in no significant distress. HEENT: No scleral icterus, PERRLA, neck supple. Atraumatic. Cardiovascular: Regular rate and rhythm, no extra sounds. Pulmonary: Clear to auscultation bilaterally, normal work of breathing. Abdomen: Soft, nontender, nondistended, positive bowel sounds. Musculoskeletal: Atraumatic, no peripheral edema. Psych: Positive suicidal ideation with plan, negative HI. Neurologic: Patient awake alert and oriented x 3, speech is clear Skin: Warm, dry, no rash EMERGENCY DEPARTMENT COURSE/MDM: Patient was medically cleared and referred to the psychiatric casework manager for mental health assessment. Patient is voluntary for admission and accepted by [facility] S[facility] for inpatient treatment. DISPOSITION: admit Past Med/Surg History Medical History Bipolar disorder Lab test negative for COVID-19 virus Suicidal ideation Family History Other No pertinent family history in first degree relatives Social History Smoking Status: Never smoker Preferred Language: Chinese Communication Ability: Effective Pull Worker Required: No Beliefs That Will Affect Care: None Feels Safe at Home: Yes Gender Identity: Male Assistive Devices: None Allergies Allergies Allergy/AdvReac Type Severity Reaction Status Date / Time No Known Allergies Allergy Verified 12/20/22 12:07 Home Meds Home Medications Medication Instructions Recorded Confirmed clozapine 100 mg tablet 100 mg PO QAM 02/01/23 02/01/23 clozapine 200 mg tablet (Clozaril) 200 mg PO HS 02/01/23 02/01/23 clozapine 50 mg tablet 50 mg PO HS 02/01/23 02/01/23 lithium carbonate 600 mg capsule 600 mg PO BID 02/01/23 02/01/23 Results & Data (ED) Vital Signs Vital Signs - 24 hr 02/01/23 16:53 Temperature 36.5 C Temperature Source Temporal Artery Scan Pulse Rate 115 H Respiratory Rate 18 Respiratory Effort / Characteristics Non-Labored Spontaneous Respiratory Depth Normal Blood Pressure 116/77 Blood Pressure Mean 90 Pulse Oximetry 98 Oxygen Delivery Method Room Air Sepsis Recent Fever Within 48 Hours No Sepsis New/Unexplained Change in Mental Status No Sepsis Action Taken by Nursing No Action Required Home Medications Current Medication List: was personally reviewed by me Laboratory Data Attestation: I reviewed the patient's lab results. 02/01/23 17:44 02/01/23 17:44 Lab Results 02/01/23 02/01/23 02/01/23 Range/Units 17:20 17:20 17:20 WBC (4.8-10.8) K/ul RBC (4.70-6.10) M/uL Hgb (14.0-18.0) g/dl Hct (42.0-52.0) % MCV (80.0-100.0) fL MCH (25.0-34.0) pg MCHC (32.0-36.0) g/dL RDW Std Deviation (36.4-46.3) fL RDW Coeff of Belén (11.5-14.5) % Plt Count (130-400) K/uL MPV (9.4-12.4) fL Immature Gran % (Auto) % Neut % (Auto) % Lymph % (Auto) % Wolfe % (Auto) % Eos % (Auto) % Baso % (Auto) % Neut # (Auto) (1.40-6.50) K/uL Lymph # (Auto) (1.2-3.4) K/uL Wolfe # (Auto) (0.11-0.59) K/uL Eos # (Auto) (0-0.50) K/uL Baso # (Auto) (0-0.2) K/uL Immature Gran # (Auto) (0.01-0.20) K/uL Sodium (136-145) mmol/L Potassium (3.5-5.1) mmol/L Chloride (98-107) mmol/L Carbon Dioxide (21-32) mmol/L Anion Gap (3-11) BUN (6-23) mg/dl Creatinine (0.6-1.4) mg/dl Est Cr Clr Drug Dosing ml/min Est GFR ( Amer) ml/min Est GFR (Non-Af Amer) ml/min BUN/Creatinine Ratio (10-20) Glucose (70-99(Fasting)) mg/dl Calcium (8.6-10.3) mg/dl Total Bilirubin (0.2-1.0) mg/dl AST (13-39) U/L ALT (7-52) U/L Alkaline Phosphatase (34-104) U/L Total Protein (6.0-8.3) gm/dl Albumin (3.4-5.0) gm/dl Globulin (2.5-4.0) gm/dl Albumin/Globulin Ratio (0.9-2) TSH (0.300-4.500) uIu/ml Urine Color Yellow Urine Appearance Clear (Clear) Urine pH 5.5 (4.5-7.5) Ur Specific [place] 1.014 (1.000-1.030) Urine Protein Negative (Negative) Urine Glucose (UA) Negative (Negative) Urine Ketones Negative (Negative) Urine Blood Negative (Negative) Urine Nitrite Negative (Negative) Urine Bilirubin Negative (Negative) Urine Urobilinogen Negative (Negative) Ur Leukocyte Esterase Negative (Negative) Salicylates (3.0-30) mg/dl Urine Opiates Screen Neg (Neg) Ur Methadone, Qual Neg (Neg) Acetaminophen (10-30) ug/ml Urine Barbiturates Neg (Neg) Ur Phencyclidine (PCP) Neg (Neg) U Amphetamin/Meth Scrn Neg (Neg) MDMA (Ecstasy) Screen Neg (Neg) U Benzodiazepines Scrn Neg (Neg) [place] (0.6-1.2) mmol/L Ur Cocaine Metabolite Neg (Neg) U Marijuana (THC) Screen Neg (Neg) Ethyl Alcohol mg/dL (<10.0) mg/dl SARS-CoV-2, RNA, NAAT NEGATIVE (NEGATIVE) 02/01/23 02/01/23 02/01/23 Range/Units 17:44 17:44 17:44 WBC 10.06 (4.8-10.8) K/ul RBC 5.52 (4.70-6.10) M/uL Hgb 15.4 (14.0-18.0) g/dl Hct 45.8 (42.0-52.0) % MCV 83.0 (80.0-100.0) fL MCH 27.9 (25.0-34.0) pg MCHC 33.6 (32.0-36.0) g/dL RDW Std Deviation 43.1 (36.4-46.3) fL RDW Coeff of Belén 14.2 (11.5-14.5) % Plt Count 333 (130-400) K/uL MPV 9.8 (9.4-12.4) fL Immature Gran % (Auto) 0.5 % Neut % (Auto) 72.4 % Lymph % (Auto) 18.8 % Wolfe % (Auto) 6.9 % Eos % (Auto) 0.9 % Baso % (Auto) 0.5 % Neut # (Auto) 7.29 H (1.40-6.50) K/uL Lymph # (Auto) 1.89 (1.2-3.4) K/uL Wolfe # (Auto) 0.69 H (0.11-0.59) K/uL Eos # (Auto) 0.09 (0-0.50) K/uL Baso # (Auto) 0.05 (0-0.2) K/uL Immature Gran # (Auto) 0.05 (0.01-0.20) K/uL Sodium 140 (136-145) mmol/L Potassium 3.8 (3.5-5.1) mmol/L Chloride 105 (98-107) mmol/L Carbon Dioxide 29 (21-32) mmol/L Anion Gap 6 (3-11) BUN 8 (6-23) mg/dl Creatinine 1.13 (0.6-1.4) mg/dl Est Cr Clr Drug Dosing 125.9 ml/min Est GFR ( Amer) 102.7 ml/min Est GFR (Non-Af Amer) 88.6 ml/min BUN/Creatinine Ratio 7.1 L (10-20) Glucose 113 H (70-99(Fasting)) mg/dl Calcium 9.0 (8.6-10.3) mg/dl Total Bilirubin 0.5 (0.2-1.0) mg/dl AST 18 (13-39) U/L ALT 19 (7-52) U/L Alkaline Phosphatase 55 (34-104) U/L Total Protein 6.5 (6.0-8.3) gm/dl Albumin 4.3 (3.4-5.0) gm/dl Globulin 2.2 L (2.5-4.0) gm/dl Albumin/Globulin Ratio 2.0 (0.9-2) TSH 2.166 (0.300-4.500) uIu/ml Urine Color Urine Appearance (Clear) Urine pH (4.5-7.5) Ur Specific [place] (1.000-1.030) Urine Protein (Negative) Urine Glucose (UA) (Negative) Urine Ketones (Negative) Urine Blood (Negative) Urine Nitrite (Negative) Urine Bilirubin (Negative) Urine Urobilinogen (Negative) Ur Leukocyte Esterase (Negative) Salicylates (3.0-30) mg/dl Urine Opiates Screen (Neg) Ur Methadone, Qual (Neg) Acetaminophen (10-30) ug/ml Urine Barbiturates (Neg) Ur Phencyclidine (PCP) (Neg) U Amphetamin/Meth Scrn (Neg) MDMA (Ecstasy) Screen (Neg) U Benzodiazepines Scrn (Neg) [place] (0.6-1.2) mmol/L Ur Cocaine Metabolite (Neg) U Marijuana (THC) Screen (Neg) Ethyl Alcohol mg/dL (<10.0) mg/dl SARS-CoV-2, RNA, NAAT (NEGATIVE) 02/01/23 02/01/23 02/01/23 Range/Units 17:44 17:44 17:44 WBC (4.8-10.8) K/ul RBC (4.70-6.10) M/uL Hgb (14.0-18.0) g/dl Hct (42.0-52.0) % MCV (80.0-100.0) fL MCH (25.0-34.0) pg MCHC (32.0-36.0) g/dL RDW Std Deviation (36.4-46.3) fL RDW Coeff of Belén (11.5-14.5) % Plt Count (130-400) K/uL MPV (9.4-12.4) fL Immature Gran % (Auto) % Neut % (Auto) % Lymph % (Auto) % Wolfe % (Auto) % Eos % (Auto) % Baso % (Auto) % Neut # (Auto) (1.40-6.50) K/uL Lymph # (Auto) (1.2-3.4) K/uL Wolfe # (Auto) (0.11-0.59) K/uL Eos # (Auto) (0-0.50) K/uL Baso # (Auto) (0-0.2) K/uL Immature Gran # (Auto) (0.01-0.20) K/uL Sodium (136-145) mmol/L Potassium (3.5-5.1) mmol/L Chloride (98-107) mmol/L Carbon Dioxide (21-32) mmol/L Anion Gap (3-11) BUN (6-23) mg/dl Creatinine (0.6-1.4) mg/dl Est Cr Clr Drug Dosing ml/min Est GFR ( Amer) ml/min Est GFR (Non-Af Amer) ml/min BUN/Creatinine Ratio (10-20) Glucose (70-99(Fasting)) mg/dl Calcium (8.6-10.3) mg/dl Total Bilirubin (0.2-1.0) mg/dl AST (13-39) U/L ALT (7-52) U/L Alkaline Phosphatase (34-104) U/L Total Protein (6.0-8.3) gm/dl Albumin (3.4-5.0) gm/dl Globulin (2.5-4.0) gm/dl Albumin/Globulin Ratio (0.9-2) TSH (0.300-4.500) uIu/ml Urine Color Urine Appearance (Clear) Urine pH (4.5-7.5) Ur Specific [place] (1.000-1.030) Urine Protein (Negative) Urine Glucose (UA) (Negative) Urine Ketones (Negative) Urine Blood (Negative) Urine Nitrite (Negative) Urine Bilirubin (Negative) Urine Urobilinogen (Negative) Ur Leukocyte Esterase (Negative) Salicylates < 3.0 L (3.0-30) mg/dl Urine Opiates Screen (Neg) Ur Methadone, Qual (Neg) Acetaminophen < 3 L (10-30) ug/ml Urine Barbiturates (Neg) Ur Phencyclidine (PCP) (Neg) U Amphetamin/Meth Scrn (Neg) MDMA (Ecstasy) Screen (Neg) U Benzodiazepines Scrn (Neg) [place] 0.6 (0.6-1.2) mmol/L Ur Cocaine Metabolite (Neg) U Marijuana (THC) Screen (Neg) Ethyl Alcohol mg/dL < 10.0 (<10.0) mg/dl SARS-CoV-2, RNA, NAAT (NEGATIVE) Administered Medications Clozapine (Clozapine 100 Mg Tab) 250 mg PO HS COUNTS INCLUDE 234 BEDS AT THE [facility] Stop: 03/04/23 20:59 Last Admin: 02/03/23 20:56 Dose: 250 mg Documented By: Admin: 02/02/23 20:32 Dose: 250 mg Documented By: KAVYA [place] Carbonate ([place] Carbonate Slow Rel 300 Mg Tab) 600 mg PO BID COUNTS INCLUDE 234 BEDS AT THE [facility] Stop: 03/05/23 20:59 Last Admin: 02/04/23 08:49 Dose: 600 mg Documented By: Admin: 02/03/23 20:56 Dose: 600 mg Documented By: KAVYA Discontinued Medications Clozapine (Clozapine 100 Mg Tab) 100 mg PO QAM COUNTS INCLUDE 234 BEDS AT THE [facility] Stop: 03/04/23 08:59 Last Admin: 02/02/23 08:56 Dose: 100 mg Documented By: AGNES [place] Carbonate ([place] Carbonate 300 Mg Tab) 600 mg PO BID COUNTS INCLUDE 234 BEDS AT THE [facility] Stop: 03/04/23 00:59 Last Admin: 02/02/23 08:56 Dose: 600 mg Documented By: Admin: 02/02/23 01:14 Dose: 600 mg Documented By: GALINDO Discharge Plan Visit Data Chief Complaint: Mental Health Evaluation Stated Complaint: FEELS SUICIDAL ED Provider: Jane Perez Discharge Problem: Suicidal ideation Patient Disposition: Admitted As Inpatient Discharge Instructions Interventions: ED Discharge Assessment Last Done: 02/02/23 10:00
[2023-02-01 19:58] LABS: Amphetamines+Metham, Urine Neg (Neg); Barbiturates, Urine Neg (Neg); Benzodiazepine, Urine Neg (Neg); Cocaine, Urine Neg (Neg); MDMA (Ecstacy), Urine Neg (Neg); Methadone, Urine Neg (Neg); Opiate, Urine Neg (Neg); Phencyclidine, Urine Neg (Neg)
[2023-02-02] MEDS: LITHIUM CARBONATE 300 MG TAB PO SCH ×2 (01:14→08:56)
--- NOTE | 2023-02-02 01:56 | Emergency Department Note ---
ED Visit Note Date and Time: 02/02/2023 Interval History: Sign out received from Dr. Pantoja who reviewed details of the encounter. Patient was pending transfer to the [facility] Summary: The patient received his medications and slept throughout the night Disposition: He will be transferred to the [facility] at 10 AM .
[2023-02-02] MEDS ORDERED: SODIUM CHLORIDE 0.65% NA SOLN 45 ML (OCEAN) PRN (08:59)
[2023-02-02] MEDS ORDERED: BISMUTH SUBSALICYLATE LIQD 236 ML PO PRN (08:59)
[2023-02-02] MEDS ORDERED: MAGNESIUM HYDROXIDE SUSP 30 ML UDC PO PRN (08:59)
[2023-02-02] MEDS ORDERED: ALUMINUM/MAGNESIUM SUSP 30 ML UDC PO PRN (08:59)
[2023-02-02] MEDS ORDERED: hydrOXYzine HCl 25 MG TAB PO PRN ×2 (08:59)
[2023-02-02] MEDS ORDERED: ACETAMINOPHEN 325 MG TAB PO PRN (08:59)
[2023-02-02] MEDS ORDERED: cloZAPine 100 MG TAB PO SCH (09:00)
--- NOTE | 2023-02-02 09:59 | Emergency Department Note ---
ED Visit Note The patient was taken in signout from Ana at the change of shift. The patient was seen initially by Dr. Pantoja. Please see that note for details. The patient was pending transfer to the [facility] for voluntary inpatient psychiatric treatment for suicidal ideation. There was a change in plan. I was notified by [facility] S[facility] that they will be admitting the patient to our facility until 201 was signed.
--- NOTE | 2023-02-02 12:26 | History & Physical ---
Date of Service February 02, 2023 Impression / Recommendations Impression 27 yo male residing in a personal senior care due to severe persistent mental illness, has been hospitalized several times following [facility] hospital stay, currently suicidal with plan to jump into traffic due to dizziness and worsening of his baseline paranoid delusions. (1) Schizoaffective disorder, bipolar type: Plan The patient was admitted to the [facility] ([facility]) on q15 min checks (behavioral with suicide precautions) for safety. The patient will participate in group, recreational, and milieu therapies and will be offered additional individual and family sessions as clinically appropriate. Will check orthostatics and hold am clozaril with plan to shift dosing more toward hs. Anthon level in am, does not appear toxic but his level was not a true trough. Inventory Assets Strengths: cooperative at [facility], help seeking Needs: improve coping, improve insight into condition Suicide Risk Level Suicide Risk Level: High-Moderate (q15 min suicide checks) Risk Factors Assessment Male: Yes : Yes Do You Have Access To A Gun?: No Mental Health Diagnoses: Yes Previous Psychiatric Hospitalization: Yes Protective Factors Assessment Employed: No Supportive Family: Yes Psychiatric History Identifying Data NASEEM MCGEE is a 27-year-old M, resident of [facility], has a history of schizoaffective disorder and multiple hospitalizations (including [facility] hospital), and was admitted on 02/02/23 08:59 on a 201 voluntary commitment for SI in the context of increase in paranoid delusions. Chief Complaint "I'm tried, clozaril makes me dizzy". History of Present Illness Patient was last admitted to [facility] 12/20/22-12/22/22 where his Haldol and Cogentin were discontinued in favor of a trial of an increase in Anthon and clozapine. Since that time he has beeing following with [facility] provider and been compliant with medications. He confirmed history as documented by ED CM: He stated he saw a therapist today (unknown name/agency) who advised to come to ED for mental health evaluation. Naseem stated he is having suicidal thoughts with plan to run in front of a truck or jump from a building. He stated he was close to jumping in front of a truck today. He denies HI or aggression. He denies SIB. He denies hallucinations. He admits to paranoid delusion based thinking. He stated he "thinks the world ended and thought my therapist had government agents trying to kill me." He denies any medical issues. He denies drug or alcohol use. He denies legal issues. He was cooperative with the admission process by liaison nurse. He is currently in bed complaining of room spinning which he attributes to clozaril (am dose was give in the ED). Past Psychiatric History Previous Psych History: Current Psychiatric Diagnosis: Schizoaffective Disorder, Bipolar Type Outpatient Services: [facility] for psychiatry, through [facility] Previous Psych Admissions: multiple including [facility] most recently November 2022, [facility] multiple times (most recently February 2022) and [facility] in the past and 2 weeks ago. Do You Have Access To A Gun?: No History of Previous Suicide Attempt: No Past Medication Trials: pt recalls few details, but he recently did poorly on a trial of olanzapine and haloperidol Current Psychiatric Diagnosis: Depression; Bipolar Disorder Do You Have Access To A Gun?: No History of Previous Suicide Attempt: No Allergies Allergy/AdvReac Type Severity Reaction Status Date / Time No Known Allergies Allergy Verified 12/20/22 12:07 Home Medications Medication Instructions Recorded Confirmed Type clozapine 100 mg tablet 100 mg PO QAM 02/01/23 02/01/23 History clozapine 200 mg tablet (Clozaril) 200 mg PO HS 02/01/23 02/01/23 History clozapine 50 mg tablet 50 mg PO HS 02/01/23 02/01/23 History lithium carbonate 600 mg capsule 600 mg PO BID 02/01/23 02/01/23 History Family History Family History of: Doesn't Know Alcohol History Hx of Alcohol Use Over the Past 12 Months: No AUDIT Total Score: 0 Smoking Use Have You Smoked or Used Tobacco Products in the Last 30 Days: Yes Smoking Status: Never smoker Substance History Hx of Prescription Med Misuse Over the Past 12 Months: No Hx of Over the Counter Med Misuse Over the Past 12 Months: No Hx of Inhalent Misuse Over the Past 12 Months: No Hx of Organic Substance Use Over the Past 12 Months: No Hx of Illegal Substances/Street Drug Use Over Past 12 Months: No Problems as a Result of Past Substance Use: None Identified Personal History Living Arrangements: Personal Care Facility Highest Grade Completed: College Employment Status: Disabled Marital Status: Single Beliefs That Will Affect Care: None Current Legal Problems: No Hx Legal Problems: No Hx Traumatic Life Events: No Patient History Medical History Bipolar disorder Lab test negative for COVID-19 virus Suicidal ideation Family History Other No pertinent family history in first degree relatives Social History Smoking Status: Never smoker Preferred Language: Malay Communication Ability: Effective [place] Printer Required: No Beliefs That Will Affect Care: None Feels Safe at Home: Yes Gender Identity: Male Assistive Devices: None Review of Systems Review of Systems: All systems reviewed & are unremarkable except as noted in HPI & below Physical Exam Psychiatric: Orientation: alert and oriented x 3 Apperance: appropriately dressed and appropriately groomed Eye Contact: good eye contact Motor Behavior: no abnormal motor movements Speech: + abnormal rate/rhythm/volume of speech Affect: + depressed affect Mood: + depressed mood Thought Process: + concrete thought process Thought Content: + paranoid, + delusions and + persecution Suicidal Thoughts: denies suicidal plan (on unit); + reports suicidal thoughts Homicidal Thoughts: denies homicidal thoughts Hallucinations: no auditory hallucinations and no visual hallucinations Cognition: language grossly intact; + attention not intact Insight: + limited insight Judgment: + limited judgement Vital Signs (Past 24 Hours): Last Vital Signs Temp 36.6 C 02/02/23 10:40 Pulse 95 H 02/02/23 10:40 Resp 16 02/02/23 10:40 BP 126/78 02/02/23 10:40 Pulse Ox 99 02/02/23 10:40 O2 Del Method Room Air 02/02/23 10:40 Exam Statement: A physical exam was performed in the ED by Dr. Pantoja for the purposes of medical clearance. I accept that physical as correct and adequate for the purposes of the inpatient physical exam. Results & Data ([facility] [[email or web address]]) Laboratory Results Laboratory Results - last 24 hr 02/01/23 02/01/23 02/01/23 17:20 17:20 17:20 WBC RBC Hgb Hct MCV MCH MCHC RDW Std Deviation RDW Coeff of Belén Plt Count MPV Immature Gran % (Auto) Neut % (Auto) Lymph % (Auto) [place] % (Auto) Eos % (Auto) Baso % (Auto) Neut # (Auto) Lymph # (Auto) [place] # (Auto) Eos # (Auto) Baso # (Auto) Immature Gran # (Auto) Sodium Potassium Chloride Carbon Dioxide Anion Gap BUN Creatinine Est Cr Clr Drug Dosing Est GFR ( Amer) Est GFR (Non-Af Amer) BUN/Creatinine Ratio Glucose Calcium Total Bilirubin AST ALT Alkaline Phosphatase Total Protein Albumin Globulin Albumin/Globulin Ratio TSH Urine Color Yellow Urine Appearance Clear Urine pH 5.5 Ur Specific [place] 1.014 Urine Protein Negative Urine Glucose (UA) Negative Urine Ketones Negative Urine Blood Negative Urine Nitrite Negative Urine Bilirubin Negative Urine Urobilinogen Negative Ur Leukocyte Esterase Negative Salicylates Urine Opiates Screen Neg Ur Methadone, Qual Neg Acetaminophen Urine Barbiturates Neg Ur Phencyclidine (PCP) Neg U Amphetamin/Meth Scrn Neg MDMA (Ecstasy) Screen Neg U Benzodiazepines Scrn Neg Anthon Ur Cocaine Metabolite Neg U Marijuana (THC) Screen Neg Ethyl Alcohol mg/dL SARS-CoV-2, RNA, NAAT NEGATIVE 02/01/23 02/01/23 02/01/23 17:44 17:44 17:44 WBC 10.06 RBC 5.52 Hgb 15.4 Hct 45.8 MCV 83.0 MCH 27.9 MCHC 33.6 RDW Std Deviation 43.1 RDW Coeff of Belén 14.2 Plt Count 333 MPV 9.8 Immature Gran % (Auto) 0.5 Neut % (Auto) 72.4 Lymph % (Auto) 18.8 [place] % (Auto) 6.9 Eos % (Auto) 0.9 Baso % (Auto) 0.5 Neut # (Auto) 7.29 H Lymph # (Auto) 1.89 [place] # (Auto) 0.69 H Eos # (Auto) 0.09 Baso # (Auto) 0.05 Immature Gran # (Auto) 0.05 Sodium 140 Potassium 3.8 Chloride 105 Carbon Dioxide 29 Anion Gap 6 BUN 8 Creatinine 1.13 Est Cr Clr Drug Dosing 125.9 Est GFR ( Amer) 102.7 Est GFR (Non-Af Amer) 88.6 BUN/Creatinine Ratio 7.1 L Glucose 113 H Calcium 9.0 Total Bilirubin 0.5 AST 18 ALT 19 Alkaline Phosphatase 55 Total Protein 6.5 Albumin 4.3 Globulin 2.2 L Albumin/Globulin Ratio 2.0 TSH 2.166 Urine Color Urine Appearance Urine pH Ur Specific [place] Urine Protein Urine Glucose (UA) Urine Ketones Urine Blood Urine Nitrite Urine Bilirubin Urine Urobilinogen Ur Leukocyte Esterase Salicylates Urine Opiates Screen Ur Methadone, Qual Acetaminophen Urine Barbiturates Ur Phencyclidine (PCP) U Amphetamin/Meth Scrn MDMA (Ecstasy) Screen U Benzodiazepines Scrn Anthon Ur Cocaine Metabolite U Marijuana (THC) Screen Ethyl Alcohol mg/dL SARS-CoV-2, RNA, NAAT 02/01/23 02/01/23 02/01/23 17:44 17:44 17:44 WBC RBC Hgb Hct MCV MCH MCHC RDW Std Deviation RDW Coeff of Belén Plt Count MPV Immature Gran % (Auto) Neut % (Auto) Lymph % (Auto) [place] % (Auto) Eos % (Auto) Baso % (Auto) Neut # (Auto) Lymph # (Auto) [place] # (Auto) Eos # (Auto) Baso # (Auto) Immature Gran # (Auto) Sodium Potassium Chloride Carbon Dioxide Anion Gap BUN Creatinine Est Cr Clr Drug Dosing Est GFR ( Amer) Est GFR (Non-Af Amer) BUN/Creatinine Ratio Glucose Calcium Total Bilirubin AST ALT Alkaline Phosphatase Total Protein Albumin Globulin Albumin/Globulin Ratio TSH Urine Color Urine Appearance Urine pH Ur Specific [place] Urine Protein Urine Glucose (UA) Urine Ketones Urine Blood Urine Nitrite Urine Bilirubin Urine Urobilinogen Ur Leukocyte Esterase Salicylates < 3.0 L Urine Opiates Screen Ur Methadone, Qual Acetaminophen < 3 L Urine Barbiturates Ur Phencyclidine (PCP) U Amphetamin/Meth Scrn MDMA (Ecstasy) Screen U Benzodiazepines Scrn Anthon 0.6 Ur Cocaine Metabolite U Marijuana (THC) Screen Ethyl Alcohol mg/dL < 10.0 SARS-CoV-2, RNA, NAAT Current Inpatient Medications Current Inpatient Medications: Current Inpatient Medications Acetaminophen (Acetaminophen 325 Mg Tab) 650 mg PO Q4H PRN PRN Reason: Headache or Minor Fever Stop: 03/04/23 08:58 Al Hydrox/Mg Hydrox/Simethicone (Aluminum/Magnesium Susp 30 Ml Udc) 30 ml PO Q4H PRN PRN Reason: GI Upset Stop: 03/04/23 08:58 Bismuth Subsalicylate (Bismuth Subsalicylate Liqd 236 Ml) 15 ml PO PRN PRN PRN Reason: Loose Stool Stop: 03/04/23 08:58 Clozapine (Clozapine 100 Mg Tab) 250 mg PO HS VIVIAN Stop: 03/04/23 20:59 Clozapine (Clozapine 100 Mg Tab) 100 mg PO QAM VIVIAN Stop: 03/05/23 08:59 Hydroxyzine HCl (Hydroxyzine Hcl 25 Mg Tab) 50 mg PO HSZ PRN PRN Reason: Insomnia Stop: 03/04/23 08:58 Hydroxyzine HCl (Hydroxyzine Hcl 25 Mg Tab) 25 mg PO Q4H PRN PRN Reason: Anxiety Stop: 03/04/23 08:58 Magnesium Hydroxide (Magnesium Hydroxide Susp 30 Ml Udc) 30 ml PO DAILY PRN PRN Reason: Constipation Stop: 03/04/23 08:58 Sodium Chloride (Sodium Chloride 0.65% Na Soln 45 Ml ([place])) 1 - 2 sprays NA PRN PRN PRN Reason: Nasal Dryness/Congestion Stop: 03/04/23 08:58
[2023-02-02] MEDS ORDERED: haloperidoL 5 MG TAB PO PRN (15:29)
[2023-02-02] MEDS ORDERED: BENZTROPINE MESYLATE 1 MG TAB PO PRN (15:29)
[2023-02-02] MEDS ORDERED: LORazepam 1 MG TAB PO PRN (15:29)
[2023-02-02] MEDS: cloZAPine 100 MG TAB PO SCH (20:32)
[2023-02-02] MEDS ORDERED: CLOZAPINE 200 MG PO SCH (21:00)
[2023-02-02] MEDS ORDERED: cloZAPine 25 MG TAB PO SCH (21:00)
[2023-02-03] MEDS ORDERED: cloZAPine 100 MG TAB PO SCH (09:00)
--- NOTE | 2023-02-03 14:53 | Psychiatric Progress Note ---
Date of Service February 03, 2023 Impression / Recommendations Impression 27 yo male residing in a personal prison due to severe persistent mental illness, has been hospitalized several times following [facility] stay, currently suicidal with plan to jump into traffic due to dizziness and worsening of his baseline paranoid delusions. MNPR due to psychosis severity, paranoia Imp: unchanged (1) Schizoaffective disorder, bipolar type: Plan 02/03/23: The patient is not willing to discuss medicaiton changes and will not accept Ativan or Haldol prns at this time. Records from [place] pending. 02/02/23: The patient was admitted to the [facility] ([facility] health unit) on q15 min checks (behavioral with suicide precautions) for safety. The patient will participate in group, recreational, and milieu therapies and will be offered additional individual and family sessions as clinically appropriate. Will check orthostatics and hold am clozaril with plan to shift dosing more toward hs. [place] level in am, does not appear toxic but his level was not a true trough. Inventory Assets Strengths: cooperative at [facility], help seeking Needs: improve coping, improve insight into condition Suicide Risk Level Suicide Risk Level: High-Moderate (q15 min suicide checks) Risk Factors Assessment Male: Yes : Yes Do You Have Access To A Gun?: No Mental Health Diagnoses: Yes Previous Psychiatric Hospitalization: Yes Protective Factors Assessment Employed: No Supportive Family: Yes Interval History Identifying Information NASEEM MCGEE is a 27-year-old M, resident of [facility], has a history of schizoaffective disorder and multiple hospitalizations (including [facility]), and was admitted on 02/02/23 08:59 on a 201 voluntary commitment for SI in the context of increase in paranoid delusions. Chief Complaint "I'm worse today, everything is worse, so many delusions I can't even describe". Review of Systems Sleep Information Total Hours of Sleep: 8.5 Meal Information Percent Meal Consumed - Breakfast: 100 Percent Meal Consumed - Lunch: 95 Percent Meal Consumed - Dinner: 100 Subjective Subjective Patient was seen & assessed and interval progress reviewed with treatment team. paces unit talking to self. Pulse increase upon standing but BP stable last pm. Encouraged fluids. Unclear if accurate investigative reporter re: his dizziness as am clozaril held. Doubt lithium related as no GI upset/other signs of toxicity and level in ED was low therapeutic. [place] inadvertently d/c last pm so missed dose before am trough. Will restart and ensure lithobid as seems prone to report side effects. Stays in room when not pacing. Won't elaborate on symptoms. Physical Exam Psychiatric Orientation: alert and oriented x 3 Apperance: appropriately dressed and appropriately groomed Eye Contact: good eye contact Motor Behavior: no abnormal motor movements Speech: + abnormal rate/rhythm/volume of speech Affect: + depressed affect Mood: + depressed mood Thought Process: + concrete thought process Thought Content: + paranoid, + delusions and + persecution Suicidal Thoughts: denies suicidal plan (on unit); + reports suicidal thoughts Homicidal Thoughts: denies homicidal thoughts Hallucinations: no auditory hallucinations and no visual hallucinations Cognition: language grossly intact; + attention not intact Insight: + limited insight Judgment: + limited judgement Vital Signs (Past 24 Hours) Last Vital Signs Temp 36.5 C 02/03/23 06:00 Pulse 92 H 02/03/23 07:00 Resp 18 02/03/23 06:00 BP 104/69 02/03/23 07:00 Pulse Ox 99 02/02/23 10:40 O2 Del Method Room Air 02/02/23 10:40 Results & Data (U) Laboratory Results Laboratory Results - last 24 hr 02/03/23 07:51 [place] 0.4 L Current Inpatient Medications Current Inpatient Medications: Current Inpatient Medications Acetaminophen (Acetaminophen 325 Mg Tab) 650 mg PO Q4H PRN PRN Reason: Headache or Minor Fever Stop: 03/04/23 08:58 Al Hydrox/Mg Hydrox/Simethicone (Aluminum/Magnesium Susp 30 Ml Udc) 30 ml PO Q4H PRN PRN Reason: GI Upset Stop: 03/04/23 08:58 Benztropine Mesylate (Benztropine Mesylate 1 Mg Tab) 1 mg PO Q6 PRN PRN Reason: Muscle Spasm Stop: 03/04/23 15:28 Bismuth Subsalicylate (Bismuth Subsalicylate Liqd 236 Ml) 15 ml PO PRN PRN PRN Reason: Loose Stool Stop: 03/04/23 08:58 Clozapine (Clozapine 100 Mg Tab) 250 mg PO HS VIVIAN Stop: 03/04/23 20:59 Last Admin: 02/02/23 20:32 Dose: 250 mg Haloperidol (Haloperidol 5 Mg Tab) 5 mg PO Q4 PRN PRN Reason: Agitation Stop: 03/04/23 15:28 [place] Carbonate ([place] Carbonate Slow Rel 300 Mg Tab) 600 mg PO BID VIVIAN Stop: 03/05/23 20:59 Lorazepam (Lorazepam 1 Mg Tab) 1 mg PO Q6 PRN PRN Reason: Anxiety/Agitation Stop: 03/04/23 15:28 Magnesium Hydroxide (Magnesium Hydroxide Susp 30 Ml Udc) 30 ml PO DAILY PRN PRN Reason: Constipation Stop: 03/04/23 08:58 Sodium Chloride (Sodium Chloride 0.65% Na Soln 45 Ml ([place])) 1 - 2 sprays NA PRN PRN PRN Reason: Nasal Dryness/Congestion Stop: 03/04/23 08:58 Mental Health & Subst Abuse Tx Psychiatrist Name of Psychiatrist: Kody Rogers Psychiatrist's Psychiatric Appointment Comment: [address], [place] [address] Therapist Name of Therapist: Cheko Zamarripa Therapist's Therapy Appointment Comment: [address], [address], [place] [address] Car Repairman Name of Car Repairman: Rose @ [place] [facility] Phone Number for Car Repairman: [phone] Case Management Appointment Comment: Please resume your normal schedule. Post Discharge Appointments Primary Care Physician Name Of Family Doctor/PCP: Kody Dunn Primary Care Provider Appointment Comment: [address], [place] [address]
[2023-02-03] MEDS: cloZAPine 100 MG TAB PO SCH (20:56)
[2023-02-03] MEDS: LITHIUM CARBONATE SLOW REL 300 MG TAB PO SCH (20:56)
[2023-02-04] MEDS: LITHIUM CARBONATE SLOW REL 300 MG TAB PO SCH ×2 (08:49→20:49)
--- NOTE | 2023-02-04 08:59 | Psychiatric Progress Note ---
Date of Service February 04, 2023 Impression / Recommendations Impression 27 yo man with history of schizoaffective disorder, who resides in a local personal alf due to severe persistent degree of symptoms, [facility], currently suicidal with plan to jump into traffic due to dizziness and worsening of his baseline paranoid delusions. Diagnostically consistent with acute exacerbation of schizoaffective disorder as well as likely major depressive episode. MNPR due to psychosis severity, paranoia 02/04/2023: Ongoing intermittent SI, depression, unclear how much is due to new physical symptoms of dizziness versus possible component from worsening delusions/paranoia. Vital signs have been stable, no evidence of unsteadiness when he is up and walking. Clozapine level lowered in case that caused increased dizziness. Given ongoing depression would likely benefit from SSRI trial, currently he doesn't want to make any medication changes/additions though due to dizziness which is understandable. Will continue to explore this option given multiple recent presentations for depression component to his symptoms. (1) Schizoaffective disorder, bipolar type: Plan 02/04/2023: Consider SSRI trial once [place] records can be reviewed and once he becomes willing to consider medication adjustments. 02/03/23: The patient is not willing to discuss medication changes and will not accept Ativan or Haldol prns at this time. Records from [place] pending. 02/02/23: The patient was admitted to the [facility] (health system mental health unit) on q15 min checks (behavioral with suicide precautions) for safety. The patient will participate in group, recreational, and milieu therapies and will be offered additional individual and family sessions as clinically appropriate. Will check orthostatics and hold am clozaril with plan to shift dosing more toward hs. [place] level in am, does not appear toxic but his level was not a true trough. Inventory Assets Strengths: cooperative at [facility], help seeking Needs: improve coping, improve insight into condition Suicide Risk Level Suicide Risk Level: High-Moderate (q15 min suicide checks) (depression, psychosis and intermittent SI but feels safe in the hospital and feels comfortable letting nurses know if he feels unable to remain safe or requires additional support) Risk Factors Assessment Male: Yes : Yes Do You Have Access To A Gun?: No Mental Health Diagnoses: Yes Previous Psychiatric Hospitalization: Yes Protective Factors Assessment Employed: No Supportive Family: Yes Interval History Identifying Information NASEEM MCGEE is a 27-year-old M, resident of [facility], has a history of schizoaffective disorder and multiple hospitalizations (including [facility]), and was admitted on 02/02/23 08:59 on a 201 voluntary commitment for SI in the context of increase in paranoid delusions. Chief Complaint "Pretty bad, I'm having suicidal thoughts". Review of Systems Sleep Information Total Hours of Sleep: 8.5 Meal Information Percent Meal Consumed - Breakfast: 100 Percent Meal Consumed - Lunch: 95 Percent Meal Consumed - Dinner: 100 Subjective Subjective Patient was seen & assessed and interval progress reviewed with treatment team nursing and social work. Responding nearly constantly to internal stimuli. Pacing the halls throughout the day. Pleasant in interactions. Hasn't been able to tolerate groups. This morning lying bed and reports low mood due to SI with thoughts of walking in front of a car if outside of the hospital. Feels this is in part due to feeling more dizzy today. Reviewed that clozapine dose had been lowered and that we will continue to monitor dizziness closely. He's in agreement with this plan, doesn't want to make any medication changes at this time. Physical Exam Psychiatric Orientation: alert and oriented x 3 Apperance: appropriately dressed and appropriately groomed Eye Contact: good eye contact Motor Behavior: no abnormal motor movements Speech: + abnormal rate/rhythm/volume of speech Affect: + depressed affect Mood: + depressed mood Thought Process: + concrete thought process Thought Content: + paranoid, + delusions and + persecution Suicidal Thoughts: denies suicidal plan (none for unit, to walk in front of car outside of hospital); + reports suicidal thoughts Homicidal Thoughts: denies homicidal thoughts Hallucinations: + auditory hallucinations; no visual hallucinations Cognition: language grossly intact; + attention not intact Insight: + limited insight Judgment: + limited judgement Vital Signs (Past 24 Hours) Last Vital Signs Temp 36.6 C 02/04/23 06:00 Pulse 71 02/04/23 06:00 Resp 18 02/04/23 06:00 BP 111/67 02/04/23 06:43 Pulse Ox 97 02/04/23 06:00 O2 Del Method Room Air 02/04/23 06:00 Results & Data (U) Laboratory Results Laboratory Results - last 24 hr 02/03/23 07:51 [place] 0.4 L Current Inpatient Medications Current Inpatient Medications: Current Inpatient Medications Acetaminophen (Acetaminophen 325 Mg Tab) 650 mg PO Q4H PRN PRN Reason: Headache or Minor Fever Stop: 03/04/23 08:58 Al Hydrox/Mg Hydrox/Simethicone (Aluminum/Magnesium Susp 30 Ml Udc) 30 ml PO Q4H PRN PRN Reason: GI Upset Stop: 03/04/23 08:58 Benztropine Mesylate (Benztropine Mesylate 1 Mg Tab) 1 mg PO Q6 PRN PRN Reason: Muscle Spasm Stop: 03/04/23 15:28 Bismuth Subsalicylate (Bismuth Subsalicylate Liqd 236 Ml) 15 ml PO PRN PRN PRN Reason: Loose Stool Stop: 03/04/23 08:58 Clozapine (Clozapine 100 Mg Tab) 250 mg PO HS VIVIAN Stop: 03/04/23 20:59 Last Admin: 02/03/23 20:56 Dose: 250 mg Haloperidol (Haloperidol 5 Mg Tab) 5 mg PO Q4 PRN PRN Reason: Agitation Stop: 03/04/23 15:28 [place] Carbonate ([place] Carbonate Slow Rel 300 Mg Tab) 600 mg PO BID VIVIAN Stop: 03/05/23 20:59 Last Admin: 02/03/23 20:56 Dose: 600 mg Lorazepam (Lorazepam 1 Mg Tab) 1 mg PO Q6 PRN PRN Reason: Anxiety/Agitation Stop: 03/04/23 15:28 Magnesium Hydroxide (Magnesium Hydroxide Susp 30 Ml Udc) 30 ml PO DAILY PRN PRN Reason: Constipation Stop: 03/04/23 08:58 Sodium Chloride (Sodium Chloride 0.65% Na Soln 45 Ml ([place])) 1 - 2 sprays NA PRN PRN PRN Reason: Nasal Dryness/Congestion Stop: 03/04/23 08:58 Mental Health & Subst Abuse Tx Psychiatrist Name of Psychiatrist: Kody Rogers Psychiatrist's Psychiatric Appointment Comment: [address], [place] [address] Therapist Name of Therapist: Cheko Zamarripa Therapist's Therapy Appointment Comment: [address], [address], [place] [address] Dryer Feeder Name of Dryer Feeder: Rose @ [place] [facility] Phone Number for Dryer Feeder: [phone] Case Management Appointment Comment: Please resume your normal schedule. Post Discharge Appointments Primary Care Physician Name Of Family Doctor/PCP: Kody Dunn Primary Care Provider Appointment Comment: [address], [place] [address]
[2023-02-04] MEDS: cloZAPine 100 MG TAB PO SCH (20:49)
[2023-02-05] MEDS: LITHIUM CARBONATE SLOW REL 300 MG TAB PO SCH ×2 (08:47→20:35)
--- NOTE | 2023-02-05 16:57 | Psychiatric Progress Note ---
Date of Service February 05, 2023 Impression / Recommendations Impression 27 yo man with history of schizoaffective disorder, who resides in a local personal assisted due to severe persistent degree of symptoms, has been [facility], currently suicidal with plan to jump into traffic due to dizziness and worsening of his baseline paranoid delusions. Diagnostically consistent with acute exacerbation of schizoaffective disorder as well as likely major depressive episode. MNPR due to psychosis severity, paranoia 02/05/2023: Ongoing intermittent SI, depression, unclear how much is due to new physical symptoms of dizziness versus possible component from worsening delusions/paranoia. Vital signs have been stable including orthostatics and EKG ordered and reviewed and showed normal sinus rhythm and normal QTc; no evidence of unsteadiness when he is up and walking; no SOB or cardiac complaints on exam. Possible dizziness could be somatic delusion as he's been reporting other possible somatic symptoms at times which seem to be related to ideas of reference. May consider SSRI trial (not sertraline) or Wellbutrin after review of [place] records for ongoing depression component. (1) Schizoaffective disorder, bipolar type: Plan 02/05/2023: Continue current medications and tx plan. 02/04/2023: Consider SSRI trial once [facility] records can be reviewed and once he becomes willing to consider medication adjustments. 02/03/23: The patient is not willing to discuss medication changes and will not accept Ativan or Haldol prns at this time. Records from [place] pending. 02/02/23: The patient was admitted to the [facility] ([facility] unit) on q15 min checks (behavioral with suicide precautions) for safety. The patient will participate in group, recreational, and milieu therapies and will be offered additional individual and family sessions as clinically appropriate. Will check orthostatics and hold am clozaril with plan to shift dosing more toward hs. [place] level in am, does not appear toxic but his level was not a true trough. Inventory Assets Strengths: cooperative at [facility], help seeking Needs: improve coping, improve insight into condition Suicide Risk Level Suicide Risk Level: High-Moderate (q15 min suicide checks) (depression, psychosis and intermittent SI but feels safe in the hospital and feels comfortable letting nurses know if he feels unable to remain safe or requires additional support) Risk Factors Assessment Male: Yes : Yes Do You Have Access To A Gun?: No Mental Health Diagnoses: Yes Previous Psychiatric Hospitalization: Yes Protective Factors Assessment Employed: No Supportive Family: Yes Interval History Identifying Information NASEEM MCGEE is a 27-year-old M, resident of [facility], has a history of schizoaffective disorder and multiple hospitalizations (including [facility]), and was admitted on 02/02/23 08:59 on a 201 voluntary commitment for SI in the context of increase in paranoid delusions. Chief Complaint "I'm still dizzy". Review of Systems Sleep Information Total Hours of Sleep: 7 Meal Information Percent Meal Consumed - Breakfast: 100 Percent Meal Consumed - Lunch: 100 Percent Meal Consumed - Dinner: 100 Subjective Subjective Patient was seen & assessed and interval progress reviewed with treatment team nursing and social work. Isolative to his room most of yesterday but in evening out walking and attended an evening group and reported improved mood. This morning reports ongoing dizziness so EKG ordered. Continues to have orthostatic vital signs checked daily. Unclear if dizziness may represent somatic delusion versus ongoing side effect from clozapine, encouraged increased fluid intake which he agrees to try. Had delusions last evening about possibly being a Vampire and continues to respond to internal stimuli intermittently. Later in the day reported SI with thoughts of walking into traffic outside the hospital. He is open to possible SSRI or alternative antidepressant trial, recalls hx of very poor response to sertraline which his mother also recalled in discussion with SW. Physical Exam Psychiatric Orientation: alert and oriented x 3 Apperance: appropriately dressed and appropriately groomed Eye Contact: good eye contact Motor Behavior: no abnormal motor movements Speech: + abnormal rate/rhythm/volume of speech Affect: + depressed affect Mood: + depressed mood Thought Process: + concrete thought process Thought Content: + paranoid, + delusions and + persecution Suicidal Thoughts: denies suicidal plan (none for unit, to walk in front of car outside of hospital); + reports suicidal thoughts Homicidal Thoughts: denies homicidal thoughts Hallucinations: + auditory hallucinations; no visual hallucinations Cognition: language grossly intact; + attention not intact Insight: + limited insight Judgment: + limited judgement Vital Signs (Past 24 Hours) Last Vital Signs Temp 36.7 C 02/05/23 06:00 Pulse 95 H 02/05/23 06:00 Resp 18 02/05/23 06:00 BP 121/79 02/05/23 06:51 Pulse Ox 97 02/05/23 06:00 O2 Del Method Room Air 02/05/23 06:00 Results & Data ([facility]) Current Inpatient Medications Current Inpatient Medications: Current Inpatient Medications Acetaminophen (Acetaminophen 325 Mg Tab) 650 mg PO Q4H PRN PRN Reason: Headache or Minor Fever Stop: 03/04/23 08:58 Al Hydrox/Mg Hydrox/Simethicone (Aluminum/Magnesium Susp 30 Ml Udc) 30 ml PO Q4H PRN PRN Reason: GI Upset Stop: 03/04/23 08:58 Benztropine Mesylate (Benztropine Mesylate 1 Mg Tab) 1 mg PO Q6 PRN PRN Reason: Muscle Spasm Stop: 03/04/23 15:28 Bismuth Subsalicylate (Bismuth Subsalicylate Liqd 236 Ml) 15 ml PO PRN PRN PRN Reason: Loose Stool Stop: 03/04/23 08:58 Clozapine (Clozapine 100 Mg Tab) 250 mg PO HS VIVIAN Stop: 03/04/23 20:59 Last Admin: 02/04/23 20:49 Dose: 250 mg Haloperidol (Haloperidol 5 Mg Tab) 5 mg PO Q4 PRN PRN Reason: Agitation Stop: 03/04/23 15:28 [place] Carbonate ([place] Carbonate Slow Rel 300 Mg Tab) 600 mg PO BID VIVIAN Stop: 03/05/23 20:59 Last Admin: 02/05/23 08:47 Dose: 600 mg Lorazepam (Lorazepam 1 Mg Tab) 1 mg PO Q6 PRN PRN Reason: Anxiety/Agitation Stop: 03/04/23 15:28 Magnesium Hydroxide (Magnesium Hydroxide Susp 30 Ml Udc) 30 ml PO DAILY PRN PRN Reason: Constipation Stop: 03/04/23 08:58 Sodium Chloride (Sodium Chloride 0.65% Na Soln 45 Ml ([place])) 1 - 2 sprays NA PRN PRN PRN Reason: Nasal Dryness/Congestion Stop: 03/04/23 08:58 Mental Health & Subst Abuse Tx Psychiatrist Name of Psychiatrist: Kody Rogers Psychiatrist's Psychiatric Appointment Comment: [address], [place] [address] Therapist Name of Therapist: Cheko Zamarripa Therapist's Therapy Appointment Comment: [address], [address], [place] [address] Cafe Associate Name of Cafe Associate: Rose @ [place] [facility] Phone Number for Cafe Associate: [phone] Case Management Appointment Comment: Please resume your normal schedule. Post Discharge Appointments Primary Care Physician Name Of Family Doctor/PCP: Kody Dunn Primary Care Provider Appointment Comment: [address], [place] [address]
[2023-02-05] MEDS: cloZAPine 100 MG TAB PO SCH (20:34)
[2023-02-06 08:03] LABS: Basophils # (auto) 0.11 K/uL (0-0.2); Basophils % (auto) 1.1 %; Eosinophils # (auto) 0.35 K/uL (0-0.50); Eosinophils % (auto) 3.4 %; Hematocrit (blood only) 49.8 % (42.0-52.0); Hemoglobin 16.3 g/dl (14.0-18.0); Immature Granulocytes # (auto) 0.12 K/uL (0.01-0.20); Immature Granulocytes % (auto) 1.2 %; Lymphocytes # (auto) 2.93 K/uL (1.2-3.4); Lymphocytes % (auto) 28.4 %; Mean Corpuscular Hemoglobin 27.5 pg (25.0-34.0); Mean Corpuscular Hgb Conc 32.7 g/dL (32.0-36.0); Mean Corpuscular Volume 84.1 fL (80.0-100.0); Mean Platelet Volume 9.8 fL (9.4-12.4); Monocytes # (auto) 0.86 K/uL (0.11-0.59); Monocytes % (auto) 8.3 %; Neutrophils # (auto) 5.93 K/uL (1.40-6.50); Neutrophils % (auto) 57.6 %; Platelet Count 334 K/uL (130-400); RDW Coefficient of Variation 14.2 % (11.5-14.5); RDW Standard Deviation 43.3 fL (36.4-46.3); Red Blood Count 5.92 M/uL (4.70-6.10)
[2023-02-06] MEDS: LITHIUM CARBONATE SLOW REL 300 MG TAB PO SCH (08:43)
--- NOTE | 2023-02-06 14:34 | Psychiatric Progress Note ---
Date of Service February 06, 2023 Impression / Recommendations Impression 27 yo man with history of schizoaffective disorder, who resides in a local personal correction due to severe persistent degree of symptoms, has been hospitalized several times following state hospital stay, currently suicidal with plan to jump into traffic due to dizziness and worsening of his baseline paranoid delusions. Diagnostically consistent with acute exacerbation of schizoaffective disorder as well as likely major depressive episode. MNPR due to psychosis severity, paranoia, HI 02/06/2023: Ongoing intermittent SI and new HI last night along with ongoing depression. Dip in diastolic BP and some tachycardia with orthostatic vital signs this morning so this remains most likely cause of dizziness, continuing to encourage good fluid intake. Given previous subtherapeutic Li level of 0.4, he consents to further increase of Li to target depression. (1) Schizoaffective disorder, bipolar type: Plan 02/06/2023: Increase Lithobid from 600mg BID to 600mg qAM and 900mg HS. 02/05/2023: Continue current medications and tx plan. 02/04/2023: Consider SSRI trial once [place] records can be reviewed and once he becomes willing to consider medication adjustments. 02/03/23: The patient is not willing to discuss medication changes and will not accept Ativan or Haldol prns at this time. Records from [place] pending. 02/02/23: The patient was admitted to the [facility] ([facility]) on q15 min checks (behavioral with suicide precautions) for safety. The patient will participate in group, recreational, and milieu therapies and will be offered additional individual and family sessions as clinically appropriate. Will check orthostatics and hold am clozaril with plan to shift dosing more toward hs. Appleby level in am, does not appear toxic but his level was not a true trough. Inventory Assets Strengths: cooperative at [facility], help seeking Needs: improve coping, improve insight into condition Suicide Risk Level Suicide Risk Level: High-Moderate (q15 min suicide checks) (depression, psychosis and intermittent SI but feels safe in the hospital and feels comfortable letting nurses know if he feels unable to remain safe or requires additional support) Risk Factors Assessment Male: Yes : Yes Do You Have Access To A Gun?: No Mental Health Diagnoses: Yes Previous Psychiatric Hospitalization: Yes Protective Factors Assessment Employed: No Supportive Family: Yes Interval History Identifying Information NASEEM MCGEE is a 27-year-old M, resident of [facility], has a history of schizoaffective disorder and multiple hospitalizations (including [facility]), and was admitted on 02/02/23 08:59 on a 201 voluntary commitment for SI in the context of increase in paranoid delusions. Chief Complaint "I'm a little better right now". Review of Systems Sleep Information Total Hours of Sleep: 7 Meal Information Percent Meal Consumed - Breakfast: 50 Percent Meal Consumed - Lunch: 100 Percent Meal Consumed - Dinner: 100 Subjective Subjective Patient was seen & assessed and interval progress reviewed with treatment team nursing and social work. Last night had more intense SI and he worried this might turn into "homicidal thoughts". This afternoon is having less SI and less HI. Continues to experience dizziness which he reports "comes and goes" along with symptom of "I worry my knees my buckle sometimes when I walk due to being weak". Slightly tachycardic this morning on standing orthostatic vital signs but BP relatively stable, diastolic did fall 10 points on standing. Reviewed medication options and given subtherapeutic Li level he is agreeable to i ncreasing Appleby to see if this helps with depression and to better prevent mood shift into susanne if ultimate decision is to also add an antidepressant medication. He likes listening to music on headphones as this seems to help lessen internal stimuli. Physical Exam Psychiatric Orientation: alert and oriented x 3 Apperance: appropriately dressed and appropriately groomed Eye Contact: good eye contact Motor Behavior: no abnormal motor movements Speech: + abnormal rate/rhythm/volume of speech Affect: + depressed affect and + flat affect Mood: + depressed mood Thought Process: + concrete thought process Thought Content: + paranoid, + delusions and + persecution Suicidal Thoughts: denies suicidal plan (none for unit, to walk in front of car outside of hospital); + reports suicidal thoughts Homicidal Thoughts: denies homicidal thoughts Hallucinations: + auditory hallucinations; no visual hallucinations Cognition: language grossly intact; + attention not intact Insight: + limited insight Judgment: + limited judgement Vital Signs (Past 24 Hours) Last Vital Signs Temp 36.8 C 02/06/23 06:30 Pulse 112 H 02/06/23 06:31 Resp 16 02/06/23 06:30 BP 104/62 02/06/23 06:31 Pulse Ox 97 04/30/23 06:00 O2 Del Method Room Air 02/05/23 06:00 Results & Data ([facility]) Laboratory Results Laboratory Results - last 24 hr 02/06/23 07:40 WBC 10.30 RBC 5.92 Hgb 16.3 Hct 49.8 MCV 84.1 MCH 27.5 MCHC 32.7 RDW Std Deviation 43.3 RDW Coeff of Belén 14.2 Plt Count 334 MPV 9.8 Immature Gran % (Auto) 1.2 Neut % (Auto) 57.6 Lymph % (Auto) 28.4 [place] % (Auto) 8.3 Eos % (Auto) 3.4 Baso % (Auto) 1.1 Neut # (Auto) 5.93 Lymph # (Auto) 2.93 [place] # (Auto) 0.86 H Eos # (Auto) 0.35 Baso # (Auto) 0.11 Immature Gran # (Auto) 0.12 Current Inpatient Medications Current Inpatient Medications: Current Inpatient Medications Acetaminophen (Acetaminophen 325 Mg Tab) 650 mg PO Q4H PRN PRN Reason: Headache or Minor Fever Stop: 03/04/23 08:58 Al Hydrox/Mg Hydrox/Simethicone (Aluminum/Magnesium Susp 30 Ml Udc) 30 ml PO Q4H PRN PRN Reason: GI Upset Stop: 03/04/23 08:58 Benztropine Mesylate (Benztropine Mesylate 1 Mg Tab) 1 mg PO Q6 PRN PRN Reason: Muscle Spasm Stop: 03/04/23 15:28 Bismuth Subsalicylate (Bismuth Subsalicylate Liqd 236 Ml) 15 ml PO PRN PRN PRN Reason: Loose Stool Stop: 03/04/23 08:58 Clozapine (Clozapine 100 Mg Tab) 250 mg PO HS [facility] Stop: 03/04/23 20:59 Last Admin: 02/05/23 20:34 Dose: 250 mg Haloperidol (Haloperidol 5 Mg Tab) 5 mg PO Q4 PRN PRN Reason: Agitation Stop: 03/04/23 15:28 [place] Carbonate ([place] Carbonate Slow Rel 300 Mg Tab) 600 mg PO QAM [facility] Stop: 03/09/23 08:59 [place] Carbonate ([place] Carbonate 450 Mg Tabcr) 900 mg PO HS [facility] Stop: 03/08/23 21:59 Lorazepam (Lorazepam 1 Mg Tab) 1 mg PO Q6 PRN PRN Reason: Anxiety/Agitation Stop: 03/04/23 15:28 Magnesium Hydroxide (Magnesium Hydroxide Susp 30 Ml Udc) 30 ml PO DAILY PRN PRN Reason: Constipation Stop: 03/04/23 08:58 Sodium Chloride (Sodium Chloride 0.65% Na Soln 45 Ml ([place])) 1 - 2 sprays NA PRN PRN PRN Reason: Nasal Dryness/Congestion Stop: 03/04/23 08:58 Mental Health & Subst Abuse Tx Psychiatrist Name of Psychiatrist: Kody Rogers Psychiatrist's Psychiatric Appointment Comment: [address], [place] [address] Therapist Name of Therapist: Cheko Zamarripa Therapist's Date of Therapist Appointment: 02/14/2023 Time of Therapist Appointment: 1pm Therapy Appointment Comment: [address], [address], [place] [address] Recreation Therapy Aides Teacher Name of Recreation Therapy Aides Teacher: Rose @ [facility] Phone Number for Recreation Therapy Aides Teacher: [phone] Case Management Appointment Comment: Please resume your normal schedule. Post Discharge Appointments Primary Care Physician Name Of Family Doctor/PCP: Kody Dunn Primary Care Provider Appointment Comment: [address], [place] [address]
[2023-02-06] MEDS: cloZAPine 100 MG TAB PO SCH (20:50)
[2023-02-06] MEDS: LITHIUM CARBONATE 450 MG TABCR PO SCH (20:50)
[2023-02-07] MEDS: LITHIUM CARBONATE SLOW REL 300 MG TAB PO SCH (09:00)
--- NOTE | 2023-02-07 10:32 | Electrocardiogram Report ---
Test Reason : Blood Pressure : / mmHG Vent. Rate : 070 BPM Atrial Rate : 070 BPM P-R Int : 182 ms QRS Dur : 086 ms QT Int : 342 ms P-R-T Axes : 038 063 029 degrees QTc Int : 369 ms Normal sinus rhythm Normal ECG No previous ECGs available Confirmed by Garland Ramos ([id number]) on 02/07/2023 10:31:59 AM Referred By: REFERRED SELF Confirmed By:Garland Ramos
--- NOTE | 2023-02-07 12:21 | Psychiatric Progress Note ---
Date of Service February 07, 2023 Impression / Recommendations Impression 27 yo man with history of schizoaffective disorder, who resides in a local personal shelter due to severe persistent degree of symptoms, has been hospitalized several times following state hospital stay, currently suicidal with plan to jump into traffic due to dizziness and worsening of his baseline paranoid delusions. Diagnostically consistent with acute exacerbation of schizoaffective disorder as well as likely major depressive episode. MNPR due to psychosis severity, paranoia, HI 02/07/2023: Ongoing intermittent SI and increased delusions last night along with ongoing depression. Vitals consistent with orthostatic hypotension this morning but risks of further lowering clozapine are likely worsening in delusions given history of increased symptoms at lower doses. Continuing to encourage fluid intake. He denies any side effects from higher Wingo dose. ANC reviewed and stable for ongoing clozapine use. Reviewed outpatient records from [place], typically has been most stable on Wingo and clozapine, was on Cymbalta for depression in the past. (1) Schizoaffective disorder, bipolar type: Plan 02/07/2023: Continue current medications and tx plan. 02/06/2023: Increase Lithobid from 600mg BID to 600mg qAM and 900mg HS. 02/05/2023: Continue current medications and tx plan. 02/04/2023: Consider SSRI trial once [place] records can be reviewed and once he becomes willing to consider medication adjustments. 02/03/23: The patient is not willing to discuss medication changes and will not accept Ativan or Haldol prns at this time. Records from [place] pending. 02/02/23: The patient was admitted to the [facility] ([facility] unit) on q15 min checks (behavioral with suicide precautions) for safety. The patient will participate in group, recreational, and milieu therapies and will be offered additional individual and family sessions as clinically appropriate. Will check orthostatics and hold am clozaril with plan to shift dosing more toward hs. [place] level in am, does not appear toxic but his level was not a true trough. Inventory Assets Strengths: cooperative at [facility], help seeking Needs: improve coping, improve insight into condition Suicide Risk Level Suicide Risk Level: High-Moderate (q15 min suicide checks) (depression, psychosis and intermittent SI but feels safe in the hospital and feels comfortable letting nurses know if he feels unable to remain safe or requires additional support) Risk Factors Assessment Male: Yes : Yes Do You Have Access To A Gun?: No Mental Health Diagnoses: Yes Previous Psychiatric Hospitalization: Yes Protective Factors Assessment Employed: No Supportive Family: Yes Interval History Identifying Information NASEEM MCGEE is a 27-year-old M, resident of [facility], has a history of schizoaffective disorder and multiple hospitalizations (including [facility]), and was admitted on 02/02/23 08:59 on a 201 voluntary commitment for SI in the context of increase in paranoid delusions. Chief Complaint "I'm tired". Review of Systems Sleep Information Total Hours of Sleep: 6.5 Meal Information Percent Meal Consumed - Breakfast: 50 Percent Meal Consumed - Lunch: 100 Percent Meal Consumed - Dinner: 50 Subjective Subjective Patient was seen & assessed and interval progress reviewed with treatment team nursing and social work. Last night spoke of delusions about explosive chemicals and being monitored by the [employer] and hearing voices related to this but overall in a more positive mood. This morning reports feeling tired and with some dizziness. Willing to have his dad visit later in the evening for visiting hours and to see his CM. Unfortunately by the afternoon reported increase in SI with wish to in his sleep. He declined meeting with his telephonic case manager. Feels if he leaves he'll by suicide. Physical Exam Psychiatric Orientation: alert and oriented x 3 Apperance: appropriately dressed and appropriately groomed Eye Contact: good eye contact Motor Behavior: no abnormal motor movements Speech: + abnormal rate/rhythm/volume of speech Affect: + depressed affect and + flat affect Mood: + depressed mood Thought Process: + concrete thought process Thought Content: + paranoid, + delusions and + persecution Suicidal Thoughts: denies suicidal plan (none for unit, to walk in front of car outside of hospital); + reports suicidal thoughts Homicidal Thoughts: denies homicidal thoughts Hallucinations: + auditory hallucinations; no visual hallucinations Cognition: language grossly intact; + attention not intact Insight: + limited insight Judgment: + limited judgement Vital Signs (Past 24 Hours) Last Vital Signs Temp 36.9 C 02/07/23 06:39 Pulse 111 H 02/07/23 06:41 Resp 16 02/07/23 06:39 BP 90/48 L 02/07/23 06:41 Pulse Ox 97 02/05/23 06:00 O2 Del Method Room Air 02/05/23 06:00 Results & Data ([email or web address] Current Inpatient Medications Current Inpatient Medications: Current Inpatient Medications Acetaminophen (Acetaminophen 325 Mg Tab) 650 mg PO Q4H PRN PRN Reason: Headache or Minor Fever Stop: 03/04/23 08:58 Al Hydrox/Mg Hydrox/Simethicone (Aluminum/Magnesium Susp 30 Ml Udc) 30 ml PO Q4H PRN PRN Reason: GI Upset Stop: 03/04/23 08:58 Benztropine Mesylate (Benztropine Mesylate 1 Mg Tab) 1 mg PO Q6 PRN PRN Reason: Muscle Spasm Stop: 03/04/23 15:28 Bismuth Subsalicylate (Bismuth Subsalicylate Liqd 236 Ml) 15 ml PO PRN PRN PRN Reason: Loose Stool Stop: 03/04/23 08:58 Clozapine (Clozapine 100 Mg Tab) 250 mg PO [facility] Stop: 03/04/23 20:59 Last Admin: 02/06/23 20:50 Dose: 250 mg Haloperidol (Haloperidol 5 Mg Tab) 5 mg PO Q4 PRN PRN Reason: Agitation Stop: 03/04/23 15:28 Wingo Carbonate ([place] Carbonate Slow Rel 300 Mg Tab) 600 mg PO QAM [facility] Stop: 03/09/23 08:59 Last Admin: 02/07/23 09:00 Dose: 600 mg Wingo Carbonate ([place] Carbonate 450 Mg Tabcr) 900 mg PO HS [facility] Stop: 03/08/23 21:59 Last Admin: 02/06/23 20:50 Dose: 900 mg Lorazepam (Lorazepam 1 Mg Tab) 1 mg PO Q6 PRN PRN Reason: Anxiety/Agitation Stop: 03/04/23 15:28 Magnesium Hydroxide (Magnesium Hydroxide Susp 30 Ml Udc) 30 ml PO DAILY PRN PRN Reason: Constipation Stop: 03/04/23 08:58 Sodium Chloride (Sodium Chloride 0.65% Na Soln 45 Ml ([place])) 1 - 2 sprays NA PRN PRN PRN Reason: Nasal Dryness/Congestion Stop: 03/04/23 08:58 Mental Health & Subst Abuse Tx Psychiatrist Name of Psychiatrist: Kody Rogers Psychiatrist's Psychiatric Appointment Comment: [address], [place] [address] Therapist Name of Therapist: Cheko Zamarripa Therapist's Date of Therapist Appointment: 02/14/2023 Time of Therapist Appointment: 1pm Therapy Appointment Comment: [address], [address], [place] [address] Human Capital Manager Name of Human Capital Manager: Rose @ [place] [facility] Phone Number for Human Capital Manager: [phone] Case Management Appointment Comment: Please resume your normal schedule. Post Discharge Appointments Primary Care Physician Name Of Family Doctor/PCP: Kody Dunn Primary Care Provider Appointment Comment: [address], [place] [address]
[2023-02-07] MEDS: cloZAPine 100 MG TAB PO SCH (21:00)
[2023-02-07] MEDS: LITHIUM CARBONATE 450 MG TABCR PO SCH (21:00)
[2023-02-08] MEDS: LITHIUM CARBONATE SLOW REL 300 MG TAB PO SCH (09:37)
--- NOTE | 2023-02-08 09:58 | Psychiatric Progress Note ---
Date of Service February 08, 2023 Impression / Recommendations Impression 27 yo man with history of schizoaffective disorder, who resides in a local personal mcc due to severe persistent degree of symptoms, has been hospitalized several times following state hospital stay, currently suicidal with plan to jump into traffic due to dizziness and worsening of his baseline paranoid delusions. Diagnostically consistent with acute exacerbation of schizoaffective disorder as well as likely major depressive episode. MNPR due to psychosis severity, paranoia, HI 02/08/2023: Ongoing intermittent SI and ongoing depression. Vital signs more reassuring today, no evidence for orthostatic changes and he reports less subjective dizziness. Tolerating increase in [place] so far with no signs of any side effects, slightly more social today. (1) Schizoaffective disorder, bipolar type: Plan 02/08/2023: Continue current medications and tx plan. Recheck Li level on 02/11/2023. 02/07/2023: Continue current medications and tx plan. 02/06/2023: Increase Lithobid from 600mg BID to 600mg qAM and 900mg HS. 02/05/2023: Continue current medications and tx plan. 02/04/2023: Consider SSRI trial once [place] records can be reviewed and once he becomes willing to consider medication adjustments. 02/03/23: The patient is not willing to discuss medication changes and will not accept Ativan or Haldol prns at this time. Records from [place] pending. 02/02/23: The patient was admitted to the [facility] ([facility]) on q15 min checks (behavioral with suicide precautions) for safety. The patient will participate in group, recreational, and milieu therapies and will be offered additional individual and family sessions as clinically appropriate. Will check orthostatics and hold am clozaril with plan to shift dosing more toward hs. [place] level in am, does not appear toxic but his level was not a true trough. Inventory Assets Strengths: cooperative at [facility], help seeking Needs: improve coping, improve insight into condition Suicide Risk Level Suicide Risk Level: High-Moderate (q15 min suicide checks) (depression, psychosis and intermittent SI but feels safe in the hospital and feels comfortable letting nurses know if he feels unable to remain safe or requires additional support) Risk Factors Assessment Male: Yes : Yes Do You Have Access To A Gun?: No Mental Health Diagnoses: Yes Previous Psychiatric Hospitalization: Yes Protective Factors Assessment Employed: No Supportive Family: Yes Interval History Identifying Information NASEEM MCGEE is a 27-year-old M, resident of [facility], has a history of schizoaffective disorder and multiple hospitalizations (including [facility]), and was admitted on 02/02/23 08:59 on a 201 voluntary commitment for SI in the context of increase in paranoid delusions. Chief Complaint "Not much dizziness today". Review of Systems Sleep Information Total Hours of Sleep: 7 Meal Information Percent Meal Consumed - Breakfast: 100 Percent Meal Consumed - Lunch: 100 Percent Meal Consumed - Dinner: 100 Subjective Subjective Patient was seen & assessed and interval progress reviewed with treatment team nursing and social work. He reports less dizziness this morning only "a tiny bit" but is up having breakfast. Had a brief visit with his dad last night, tells me this was a good visit. Started to discuss possibility for increased outpatient services such as [facility] and then he states "thinking about that is making me suicidal". Reviewed that he attends [employer] sometimes but idea of adding more structure seems to make him quite uncomfortable. Later in the day he was walking in the [place], smiles and says hello to me. States he's feeling a little better. He denies any new physical symptoms nor side effects to higher lithium dose. Physical Exam Psychiatric Orientation: alert and oriented x 3 Apperance: appropriately dressed and appropriately groomed Eye Contact: good eye contact Motor Behavior: no abnormal motor movements Speech: + abnormal rate/rhythm/volume of speech Affect: + depressed affect and + flat affect Mood: + depressed mood Thought Process: + concrete thought process Thought Content: + paranoid, + delusions and + persecution Suicidal Thoughts: denies suicidal plan (none for unit, to walk in front of car outside of hospital); + reports suicidal thoughts Homicidal Thoughts: denies homicidal thoughts Hallucinations: + auditory hallucinations; no visual hallucinations Cognition: language grossly intact; + attention not intact Insight: + limited insight Judgment: + limited judgement Vital Signs (Past 24 Hours) Last Vital Signs Temp 36.5 C 02/08/23 06:44 Pulse 95 H 02/08/23 06:46 Resp 18 02/08/23 06:44 BP 114/73 02/08/23 06:46 Pulse Ox 97 02/05/23 06:00 O2 Del Method Room Air 02/05/23 06:00 Results & Data ([facility] [[email or web address] Current Inpatient Medications Current Inpatient Medications: Current Inpatient Medications Acetaminophen (Acetaminophen 325 Mg Tab) 650 mg PO Q4H PRN PRN Reason: Headache or Minor Fever Stop: 03/04/23 08:58 Al Hydrox/Mg Hydrox/Simethicone (Aluminum/Magnesium Susp 30 Ml Udc) 30 ml PO Q4H PRN PRN Reason: GI Upset Stop: 03/04/23 08:58 Benztropine Mesylate (Benztropine Mesylate 1 Mg Tab) 1 mg PO Q6 PRN PRN Reason: Muscle Spasm Stop: 03/04/23 15:28 Bismuth Subsalicylate (Bismuth Subsalicylate Liqd 236 Ml) 15 ml PO PRN PRN PRN Reason: Loose Stool Stop: 03/04/23 08:58 Clozapine (Clozapine 100 Mg Tab) 250 mg PO [facility] Stop: 03/04/23 20:59 Last Admin: 02/07/23 21:00 Dose: 250 mg Haloperidol (Haloperidol 5 Mg Tab) 5 mg PO Q4 PRN PRN Reason: Agitation Stop: 03/04/23 15:28 [place] Carbonate ([place] Carbonate Slow Rel 300 Mg Tab) 600 [facility] Stop: 03/09/23 08:59 Last Admin: 02/08/23 09:37 Dose: 600 mg [place] Carbonate ([place] Carbonate 450 Mg Tabcr) 900 mg PO HS [facility] Stop: 03/08/23 21:59 Last Admin: 02/07/23 21:00 Dose: 900 mg Lorazepam (Lorazepam 1 Mg Tab) 1 mg PO Q6 PRN PRN Reason: Anxiety/Agitation Stop: 03/04/23 15:28 Magnesium Hydroxide (Magnesium Hydroxide Susp 30 Ml Udc) 30 ml PO DAILY PRN PRN Reason: Constipation Stop: 03/04/23 08:58 Sodium Chloride (Sodium Chloride 0.65% Na Soln 45 Ml ([place])) 1 - 2 sprays NA PRN PRN PRN Reason: Nasal Dryness/Congestion Stop: 03/04/23 08:58 Mental Health & Subst Abuse Tx Psychiatrist Name of Psychiatrist: Kody Rogers Psychiatrist's Date Of Appointment With Psychiatric Provider: 02/15/23 Time of Appointment with Psychiatrist: 11:20 AM Psychiatric Appointment Comment: [address], [place] [address] Therapist Name of Therapist: Cheko Zamarripa Therapist's Date of Therapist Appointment: 02/14/2023 Time of Therapist Appointment: 1pm Therapy Appointment Comment: [address], [address], [place] [address] Provider Relations Representative Name of Provider Relations Representative: Rose @ [facility] Phone Number for Provider Relations Representative: [phone] Case Management Appointment Comment: Please resume your normal schedule. Post Discharge Appointments Primary Care Physician Name Of Family Doctor/PCP: Kody Dunn Primary Care Provider Appointment Comment: [address], [place] [address]
[2023-02-08] MEDS: cloZAPine 100 MG TAB PO SCH (21:20)
[2023-02-08] MEDS: LITHIUM CARBONATE 450 MG TABCR PO SCH (21:20)
[2023-02-09] MEDS: LITHIUM CARBONATE SLOW REL 300 MG TAB PO SCH (09:22)
--- NOTE | 2023-02-09 19:01 | Psychiatric Progress Note ---
Date of Service February 09, 2023 Impression / Recommendations Impression 27 yo man with history of schizoaffective disorder, who resides in a local personal penitentiary due to severe persistent degree of symptoms, has been hospitalized several times following state hospital stay, currently suicidal with plan to jump into traffic due to dizziness and worsening of his baseline paranoid delusions. Diagnostically consistent with acute exacerbation of schizoaffective disorder as well as likely major depressive episode. MNPR due to psychosis severity, paranoia, HI 02/09/2023: Ongoing intermittent SI and ongoing depression. Vital signs again very stable today without evidence for orthostatic hypotension which again raises concern for possible delusions contributing to his somatic experiences given belief that FBI may be targeting him with chemicals. Given increased vital sign stability will increase clozapine slightly given suspicion that delusions may be contributing to persistent somatic focus and may help with SI as previously it was tired to worsened paranoia and hostile auditory hallucinations. (1) Schizoaffective disorder, bipolar type: Plan 02/09/2023: Increase clozapine to 300mg HS. 02/08/2023: Continue current medications and tx plan. Recheck Li level on 02/11/2023. 02/07/2023: Continue current medications and tx plan. 02/06/2023: Increase Lithobid from 600mg BID to 600mg qAM and 900mg HS. 02/05/2023: Continue current medications and tx plan. 02/04/2023: Consider SSRI trial once [place] records can be reviewed and once he becomes willing to consider medication adjustments. 02/03/23: The patient is not willing to discuss medication changes and will not accept Ativan or Haldol prns at this time. Records from [place] pending. 02/02/23: The patient was admitted to the [facility] ([facility]) on q15 min checks (behavioral with suicide precautions) for safety. The patient will participate in group, recreational, and milieu therapies and will be offered additional individual and family sessions as clinically appropriate. Will check orthostatics and hold am clozaril with plan to shift dosing more toward hs. [place] level in am, does not appear toxic but his level was not a true trough. Inventory Assets Strengths: cooperative at [facility], help seeking Needs: improve coping, improve insight into condition Suicide Risk Level Suicide Risk Level: High-Moderate (q15 min suicide checks) (depression, psychosi s and intermittent SI but feels safe in the hospital and feels comfortable letting nurses know if he feels unable to remain safe or requires additional support) Risk Factors Assessment Male: Yes : Yes Do You Have Access To A Gun?: No Mental Health Diagnoses: Yes Previous Psychiatric Hospitalization: Yes Protective Factors Assessment Employed: No Supportive Family: Yes Interval History Identifying Information NASEEM MCGEE is a 27-year-old M, resident of [facility], has a history of schizoaffective disorder and multiple hospitalizations (including [facility]), and was admitted on 02/02/23 08:59 on a 201 voluntary commitment for SI in the context of increase in paranoid delusions. Chief Complaint "I'm bad, I feel suicidal". Review of Systems Sleep Information Total Hours of Sleep: 7 Meal Information Percent Meal Consumed - Breakfast: 0 Percent Meal Consumed - Lunch: 15 Percent Meal Consumed - Dinner: 70 Subjective Subjective Patient was seen & assessed and interval progress reviewed with treatment team nursing and social work. More isolative to his room. pacing in the halls at times but not attending groups. Today very isolative to his room. Could not recall eating lunch when talking with me (confirmed he did). Reports increased SI but can't speak to why. States "I'm giving up" and declines offers to walk, process with staff, do distraction activities or engage in therapeutic coping sk ills. He feels his dizziness is "worse" today but denies any medication side effects from [place] except that he feels more tired today. Physical Exam Psychiatric Orientation: alert and oriented x 3 Apperance: appropriately dressed and appropriately groomed Eye Contact: good eye contact Motor Behavior: no abnormal motor movements Speech: + abnormal rate/rhythm/volume of speech Affect: + depressed affect and + flat affect Mood: + depressed mood Thought Process: + concrete thought process Thought Content: + paranoid, + delusions and + persecution Suicidal Thoughts: denies suicidal plan (none for unit, to walk in front of car outside of hospital); + reports suicidal thoughts Homicidal Thoughts: denies homicidal thoughts Hallucinations: + auditory hallucinations; no visual hallucinations Cognition: language grossly intact; + attention not intact Insight: + limited insight Judgment: + limited judgement Vital Signs (Past 24 Hours) Last Vital Signs Temp 36.4 C 02/09/23 06:00 Pulse 65 02/09/23 06:00 Resp 18 02/09/23 06:00 BP 127/73 02/09/23 06:54 Pulse Ox 98 02/09/23 06:00 O2 Del Method Room Air 02/09/23 06:00 Results & Data ([facility]) Current Inpatient Medications Current Inpatient Medications: Current Inpatient Medications Acetaminophen (Acetaminophen 325 Mg Tab) 650 mg PO Q4H PRN PRN Reason: Headache or Minor Fever Stop: 03/04/23 08:58 Al Hydrox/Mg Hydrox/Simethicone (Aluminum/Magnesium Susp 30 Ml Udc) 30 ml PO Q4H PRN PRN Reason: GI Upset Stop: 03/04/23 08:58 Benztropine Mesylate (Benztropine Mesylate 1 Mg Tab) 1 mg PO Q6 PRN PRN Reason: Muscle Spasm Stop: 03/04/23 15:28 Bismuth Subsalicylate (Bismuth Subsalicylate Liqd 236 Ml) 15 ml PO PRN PRN PRN Reason: Loose Stool Stop: 03/04/23 08:58 Clozapine (Clozapine 100 Mg Tab) 250 mg PO HS [facility] Stop: 03/04/23 20:59 Last Admin: 02/08/23 21:20 Dose: 250 mg Haloperidol (Haloperidol 5 Mg Tab) 5 mg PO Q4 PRN PRN Reason: Agitation Stop: 03/04/23 15:28 [place] Carbonate ([place] Carbonate Slow Rel 300 Mg Tab) 600 mg PO QAM [facility] Stop: 03/09/23 08:59 Last Admin: 02/09/23 09:22 Dose: 600 mg [place] Carbonate ([place] Carbonate 450 Mg Tabcr) 900 mg PO HS [facility] Stop: 03/08/23 21:59 Last Admin: 02/08/23 21:20 Dose: 900 mg Lorazepam (Lorazepam 1 Mg Tab) 1 mg PO Q6 PRN PRN Reason: Anxiety/Agitation Stop: 03/04/23 15:28 Magnesium Hydroxide (Magnesium Hydroxide Susp 30 Ml Udc) 30 ml PO DAILY PRN PRN Reason: Constipation Stop: 03/04/23 08:58 Sodium Chloride (Sodium Chloride 0.65% Na Soln 45 Ml ([place])) 1 - 2 sprays NA PRN PRN PRN Reason: Nasal Dryness/Congestion Stop: 03/04/23 08:58 Mental Health & Subst Abuse Tx Psychiatrist Name of Psychiatrist: Kody Rogers Psychiatrist's Date Of Appointment With Psychiatric Provider: 02/15/23 Time of Appointment with Psychiatrist: 11:20 AM Psychiatric Appointment Comment: [address], [place] [address] Therapist Name of Therapist: Cheko Zamarripa Therapist's Date of Therapist Appointment: 02/14/2023 Time of Therapist Appointment: 1pm Therapy Appointment Comment: [address], [address], [place] [address] Midwife Name of Midwife: Rose @ [place] [facility] Phone Number for Midwife: [phone] Case Management Appointment Comment: Please resume your normal schedule. Post Discharge Appointments Primary Care Physician Name Of Family Doctor/PCP: Kody Dunn Primary Care Provider Appointment Comment: [address], [place] [address]
[2023-02-09] MEDS: cloZAPine 100 MG TAB PO SCH (21:11)
[2023-02-09] MEDS: LITHIUM CARBONATE 450 MG TABCR PO SCH (21:12)
[2023-02-10] MEDS: LITHIUM CARBONATE SLOW REL 300 MG TAB PO SCH (09:02)
--- NOTE | 2023-02-10 09:32 | Psychiatric Progress Note ---
Date of Service February 10, 2023 Impression / Recommendations Impression 27 yo man with history of schizoaffective disorder, who resides in a local personal detention due to severe persistent degree of symptoms, has been hospitalized several times following state hospital stay, currently suicidal with plan to jump into traffic due to dizziness and worsening of his baseline paranoid delusions. Diagnostically consistent with acute exacerbation of schizoaffective disorder as well as likely major depressive episode. MNPR due to psychosis severity, paranoia, HI 02/10/2023: Ongoing intermittent SI and ongoing depression, seems less dizzy today even after increase of clozapine. Orthostatic vital signs remained stable even with increase of clozapine. Remains at high risk of self-harm given how abruptly and intensely his SI comes on. (1) Schizoaffective disorder, bipolar type: Plan 02/10/2023: Continue current medications and tx plan. 02/09/2023: Increase clozapine to 300mg HS. 02/08/2023: Continue current medications and tx plan. Recheck Li level on 02/11/2023. 02/07/2023: Continue current medications and tx plan. 02/06/2023: Increase Lithobid from 600mg BID to 600mg qAM and 900mg HS. 02/05/2023: Continue current medications and tx plan. 02/04/2023: Consider SSRI trial once [place] records can be reviewed and once he becomes willing to consider medication adjustments. 02/03/23: The patient is not willing to discuss medication changes and will not accept Ativan or Haldol prns at this time. Records from [place] pending. 02/02/23: The patient was admitted to the [facility] ([facility]) on q15 min checks (behavioral with suicide precautions) for safety. The patient will participate in group, recreational, and milieu therapies and will be offered additional individual and family sessions as clinically appropriate. Will check orthostatics and hold am clozaril with plan to shift dosing more toward hs. [place] level in am, does not appear toxic but his level was not a true trough. Inventory Assets Strengths: cooperative at [facility], help seeking Needs: improve coping, improve insight into condition Suicide Risk Level Suicide Risk Level: High-Moderate (q15 min suicide checks) (depression, psychosis and intermittent SI but feels safe in the hospital and feels comfortable letting nurses know if he feels unable to remain safe or requires additional support) Risk Factors Assessment Male: Yes : Yes Do You Have Access To A Gun?: No Mental Health Diagnoses: Yes Previous Psychiatric Hospitalization: Yes Protective Factors Assessment Employed: No Supportive Family: Yes Interval History Identifying Information NASEEM MCGEE is a 27-year-old M, resident of [facility], has a history of schizoaffective disorder and multiple hospitalizations (including [facility]), and was admitted on 02/02/23 08:59 on a 201 voluntary commitment for SI in the context of increase in paranoid delusions. Chief Complaint "It varies". Review of Systems Sleep Information Total Hours of Sleep: 7 Meal Information Percent Meal Consumed - Breakfast: 100 Percent Meal Consumed - Lunch: 15 Percent Meal Consumed - Dinner: 70 Subjective Subjective Patient was seen & assessed and interval progress reviewed with treatment team nursing and social work. Revoked all of his ROIs last night. Today reports his mood is "it varies" and denies current SI but states "it comes and goes". Later in the afternoon reported increased SI with feeling that he would act on his SI if outside of the hospital. Declined to speak with his mother on the phone when she called to talk to him. He thinks the dizziness and fatigue are "about the same" but agrees that he feels he needs to be on the [place] and clozapine as they are "important and help". No side effects from higher dose of clozapine. Physical Exam Psychiatric Orientation: alert and oriented x 3 Apperance: appropriately dressed and appropriately groomed Eye Contact: good eye contact Motor Behavior: no abnormal motor movements Speech: + abnormal rate/rhythm/volume of speech Affect: + depressed affect and + flat affect Mood: + depressed mood Thought Process: + concrete thought process Thought Content: + paranoid, + delusions and + persecution Suicidal Thoughts: denies suicidal plan (none for unit, to walk in front of car outside of hospital); + reports suicidal thoughts Homicidal Thoughts: denies homicidal thoughts Hallucinations: + auditory hallucinations; no visual hallucinations Cognition: language grossly intact; + attention not intact Insight: + limited insight Judgment: + limited judgement Vital Signs (Past 24 Hours) Last Vital Signs Temp 36.6 C 02/10/23 06:33 Pulse 94 H 02/10/23 06:35 Resp 16 02/10/23 06:33 BP 106/75 02/10/23 06:35 Pulse Ox 98 02/09/23 06:00 O2 Del Method Room Air 02/09/23 06:00 Results & Data ([facility]) Current Inpatient Medications Current Inpatient Medications: Current Inpatient Medications Acetaminophen (Acetaminophen 325 Mg Tab) 650 mg PO Q4H PRN PRN Reason: Headache or Minor Fever Stop: 03/04/23 08:58 Al Hydrox/Mg Hydrox/Simethicone (Aluminum/Magnesium Susp 30 Ml Udc) 30 ml PO Q4H PRN PRN Reason: GI Upset Stop: 03/04/23 08:58 Benztropine Mesylate (Benztropine Mesylate 1 Mg Tab) 1 mg PO Q6 PRN PRN Reason: Muscle Spasm Stop: 03/04/23 15:28 Bismuth Subsalicylate (Bismuth Subsalicylate Liqd 236 Ml) 15 ml PO PRN PRN PRN Reason: Loose Stool Stop: 03/04/23 08:58 Clozapine (Clozapine 100 Mg Tab) 300 mg PO [facility] Stop: 03/11/23 21:59 Last Admin: 02/09/23 21:11 Dose: 300 mg Haloperidol (Haloperidol 5 Mg Tab) 5 mg PO Q4 PRN PRN Reason: Agitation Stop: 03/04/23 15:28 [place] Carbonate ([place] Carbonate Slow Rel 300 Mg Tab) 600 mg PO [facility] Stop: 03/09/23 08:59 Last Admin: 02/10/23 09:02 Dose: 600 mg [place] Carbonate ([place] Carbonate 450 Mg Tabcr) 900 mg PO [facility] Stop: 03/08/23 21:59 Last Admin: 02/09/23 21:12 Dose: 900 mg Lorazepam (Lorazepam 1 Mg Tab) 1 mg PO Q6 PRN PRN Reason: Anxiety/Agitation Stop: 03/04/23 15:28 Magnesium Hydroxide (Magnesium Hydroxide Susp 30 Ml Udc) 30 ml PO DAILY PRN PRN Reason: Constipation Stop: 03/04/23 08:58 Sodium Chloride (Sodium Chloride 0.65% Na Soln 45 Ml ([place])) 1 - 2 sprays NA PRN PRN PRN Reason: Nasal Dryness/Congestion Stop: 03/04/23 08:58 Mental Health & Subst Abuse Tx Psychiatrist Name of Psychiatrist: Kody Rogers Psychiatrist's Date Of Appointment With Psychiatric Provider: 02/15/23 Time of Appointment with Psychiatrist: 11:20 AM Psychiatric Appointment Comment: [address], [place] [address] Therapist Name of Therapist: Cheko Zamarripa Therapist's Date of Therapist Appointment: 02/14/2023 Time of Therapist Appointment: 1pm Therapy Appointment Comment: [address], [address], [place] [address] Youth Agent Name of Youth Agent: Rose @ [place] [facility] Phone Number for Youth Agent: [phone] Case Management Appointment Comment: Please resume your normal schedule. Post Discharge Appointments Primary Care Physician Name Of Family Doctor/PCP: Kody Dunn Primary Care Provider Appointment Comment: [address], [place] [address]
[2023-02-10] MEDS ORDERED: POLYETHYLENE (MIRALAX) 17 GM PACK PO PRN (16:18)
[2023-02-10] MEDS ORDERED: DOCUSATE SODIUM 100 MG CAP PO PRN (16:18)
[2023-02-10] MEDS: LITHIUM CARBONATE 450 MG TABCR PO SCH (21:11)
[2023-02-10] MEDS: cloZAPine 100 MG TAB PO SCH (21:11)
[2023-02-11] MEDS: LITHIUM CARBONATE SLOW REL 300 MG TAB PO SCH (09:40)
--- NOTE | 2023-02-11 10:45 | Psychiatric Progress Note ---
Date of Service February 11, 2023 Impression / Recommendations Impression 27 yo man with history of schizoaffective disorder, who resides in a local personal longterm due to severe persistent degree of symptoms, has been hospitalized several times following state hospital stay, currently suicidal with plan to jump into traffic due to dizziness and worsening of his baseline paranoid delusions. Diagnostically consistent with acute exacerbation of schizoaffective disorder as well as likely major depressive episode. MNPR due to psychosis severity, paranoia, HI 02/11/2023: Pt has been withdrawn, avoidant. Spending most of his time in bed when he's not pacing the [place] listening to music. On approach, pt presents as somewhat sullen and much less interested in talking that during the 2 previous admissions during which I've seen him. While I'm speaking with him, get retrieves breakfast from the cart, sits, and starts munching toast while glaring at me. A short while later, he abruptly got up and returned to his room. I asked pt about a fine hand tremor I noted, but he denied having this. He appears to have tolerated increase in clozapine. I've reviewed the outside records that have been obtained from [place]. 02/10/2023: Ongoing intermittent SI and ongoing depression, seems less dizzy today even after increase of clozapine. Orthostatic vital signs remained stable even with increase of clozapine. Remains at high risk of self-harm given how abruptly and intensely his SI comes on. (1) Schizoaffective disorder, bipolar type: Plan : * Continue clozapine 300 mg QHS * Continue lithium 600 mg QAM & 900 mg QHS * [place] level in AM (too late to obtain trough level today) * A private room remains medically necessary for the safety of self and others due to pt's significant irritability 02/10/2023: Continue current medications and tx plan. 02/09/2023: Increase clozapine to 300mg HS. 02/08/2023: Continue current medications and tx plan. Recheck Li level on 02/11/2023. 02/07/2023: Continue current medications and tx plan. 02/06/2023: Increase Lithobid from 600mg BID to 600mg qAM and 900mg HS. 02/05/2023: Continue current medications and tx plan. 02/04/2023: Consider SSRI trial once [facility] records can be reviewed and once he becomes willing to consider medication adjustments. 02/03/23: The patient is not willing to discuss medication changes and will not accept Ativan or Haldol prns at this time. Records from [facility] pending. 02/02/23: The patient was admitted to the [facility] ([facility]) on q15 min checks (behavioral with suicide precautions) for safety. The patient will participate in group, recreational, and milieu therapies and will be offered additional individual and family sessions as clinically appropriate. Will check orthostatics and hold am clozaril with plan to shift dosing more toward hs. [place] level in am, does not appear toxic but his level was not a true trough. Inventory Assets Strengths: cooperative at [facility], help seeking Needs: improve coping, improve insight into condition Suicide Risk Level Suicide Risk Level: High-Moderate (q15 min suicide checks) (depression, psychosis and intermittent SI but feels safe in the hospital and feels comfortable letting nurses know if he feels unable to remain safe or requires additional support) Risk Factors Assessment Male: Yes : Yes Do You Have Access To A Gun?: No Mental Health Diagnoses: Yes Previous Psychiatric Hospitalization: Yes Protective Factors Assessment Employed: No Supportive Family: Yes Interval History Identifying Information NASEEM MCGEE is a 27-year-old M, resident of [facility], has a history of schizoaffective disorder and multiple hospitalizations (including [facility]), and was admitted on 02/02/23 08:59 on a 201 voluntary commitment for SI in the context of increase in paranoid delusions. Chief Complaint "Horrible". Review of Systems Sleep Information Total Hours of Sleep: 7.5 Meal Information Percent Meal Consumed - Breakfast: 100 Percent Meal Consumed - Lunch: 100 Percent Meal Consumed - Dinner: 100 Subjective Subjective Patient was seen & assessed and interval progress reviewed in multidisciplinary meeting with nursing and social work. For details, see "Impression" section. Physical Exam Psychiatric Orientation: alert, oriented to person, oriented to place, oriented to time and + guarded; + uncooperative Apperance: appropriately dressed and appropriately groomed Eye Contact: + poor eye contact Motor Behavior: + tremor (hands) Speech: + abnormal rate/rhythm/volume of speech Affect: + irritable affect Mood: + irritable mood and + dysphoric mood Thought Process: + concrete thought process Thought Content: + paranoid, + delusions and + persecution Suicidal Thoughts: denies suicidal plan (none for unit, to walk in front of car outside of hospital); + reports suicidal thoughts Homicidal Thoughts: denies homicidal thoughts Hallucinations: + auditory hallucinations; no visual hallucinations Cognition: language grossly intact; + attention not intact Insight: + limited insight Judgment: + limited judgement Vital Signs (Past 24 Hours) Last Vital Signs Temp 36.7 C 02/11/23 06:36 Pulse 116 H 02/11/23 06:36 Resp 16 02/11/23 06:36 BP 86/48 L 02/11/23 06:36 Pulse Ox 98 02/09/23 06:00 O2 Del Method Room Air 02/09/23 06:00 Results & Data ([facility]) Current Inpatient Medications Current Inpatient Medications: Current Inpatient Medications Acetaminophen (Acetaminophen 325 Mg Tab) 650 mg PO Q4H PRN PRN Reason: Headache or Minor Fever Stop: 03/04/23 08:58 Al Hydrox/Mg Hydrox/Simethicone (Aluminum/Magnesium Susp 30 Ml Udc) 30 ml PO Q4H PRN PRN Reason: GI Upset Stop: 03/04/23 08:58 Benztropine Mesylate (Benztropine Mesylate 1 Mg Tab) 1 mg PO Q6 PRN PRN Reason: Muscle Spasm Stop: 03/04/23 15:28 Bismuth Subsalicylate (Bismuth Subsalicylate Liqd 236 Ml) 15 ml PO PRN PRN PRN Reason: Loose Stool Stop: 03/04/23 08:58 Clozapine (Clozapine 100 Mg Tab) 300 mg PO HS [facility] Stop: 03/11/23 21:59 Last Admin: 02/10/23 21:11 Dose: 300 mg Docusate Sodium (Docusate Sodium 100 Mg Cap) 250 mg PO DAILY PRN PRN Reason: Constipation Stop: 03/13/23 08:59 Haloperidol (Haloperidol 5 Mg Tab) 5 mg PO Q4 PRN PRN Reason: Agitation Stop: 03/04/23 15:28 [place] Carbonate ([place] Carbonate Slow Rel 300 Mg Tab) 600 mg PO QAM [facility] Stop: 03/09/23 08:59 Last Admin: 02/11/23 09:40 Dose: 600 mg [place] Carbonate ([place] Carbonate 450 Mg Tabcr) 900 mg PO HS [facility] Stop: 03/08/23 21:59 Last Admin: 02/10/23 21:11 Dose: 900 mg Lorazepam (Lorazepam 1 Mg Tab) 1 mg PO Q6 PRN PRN Reason: Anxiety/Agitation Stop: 03/04/23 15:28 Magnesium Hydroxide (Magnesium Hydroxide Susp 30 Ml Udc) 30 ml PO DAILY PRN PRN Reason: Constipation Stop: 03/04/23 08:58 Polyethylene Glycol (Polyethylene (Miralax) 17 Gm Pack) 17 gm PO DAILY PRN PRN Reason: Constipation 1st choice Stop: 03/12/23 16:17 Sodium Chloride (Sodium Chloride 0.65% Na Soln 45 Ml ([place])) 1 - 2 sprays NA PRN PRN PRN Reason: Nasal Dryness/Congestion Stop: 03/04/23 08:58 Mental Health & Subst Abuse Tx Psychiatrist Name of Psychiatrist: Kody Rogers Psychiatrist's Date Of Appointment With Psychiatric Provider: 02/15/23 Time of Appointment with Psychiatrist: 11:20 AM Psychiatric Appointment Comment: [address], [place] [address] Therapist Name of Therapist: Cheko Zamarripa Therapist's Date of Therapist Appointment: 02/14/2023 Time of Therapist Appointment: 1pm Therapy Appointment Comment: [address], [address], [place], [place] [address] Marine Superintendent Name of Marine Superintendent: Rose @ [place] [facility] Phone Number for Marine Superintendent: [phone] Case Management Appointment Comment: Please resume your normal schedule. Post Discharge Appointments Primary Care Physician Name Of Family Doctor/PCP: Kody Dunn Primary Care Provider Appointment Comment: [address], [place] [address]
[2023-02-11] MEDS: cloZAPine 100 MG TAB PO SCH (20:53)
[2023-02-11] MEDS: LITHIUM CARBONATE 450 MG TABCR PO SCH (20:53)
[2023-02-12] MEDS: LITHIUM CARBONATE SLOW REL 300 MG TAB PO SCH (09:14)
--- NOTE | 2023-02-12 11:52 | Psychiatric Progress Note ---
Date of Service February 12, 2023 Impression / Recommendations Impression 27 yo man with history of schizoaffective disorder, who resides in a local personal half-way due to severe persistent degree of symptoms, has been hospitalized several times following state hospital [facility], currently suicidal with plan to jump into traffic due to dizziness and worsening of his baseline paranoid delusions. Diagnostically consistent with acute exacerbation of schizoaffective disorder as well as likely major depressive episode. MNPR due to psychosis severity, paranoia, HI 02/12/2023: Li level was 0.9 mmol/L, nearly ideal and strongly supporting that current lithium dose is appropriate. Remains withdrawn, avoidant, irritable. Continues to pace while listening to music and is somewhat difficult to redirect from this in order to converse. Irritability appears to have increased since increase of HS clozapine and dicontinuation of AM dose (so he's now taking 50 mg/day less but all in a single dose). He has significant postural blood pressure drop with heart rate increase. 02/11/2023: Pt has been withdrawn, avoidant. Spending most of his time in bed when he's not pacing the bernard listening to music. On approach, pt presents as somewhat sullen and much less interested in talking that during the 2 previous admissions during which I've seen him. While I'm speaking with him, get retrieves breakfast from the cart, sits, and starts munching toast while glaring at me. A short while later, he abruptly got up and returned to his room. I asked pt about a fine hand tremor I noted, but he denied having this. He appears to have tolerated increase in clozapine. I've reviewed the outside records that have been obtained from [address]. 02/10/2023: Ongoing intermittent SI and ongoing depression, seems less dizzy today even after increase of clozapine. Orthostatic vital signs remained stable even w ith increase of clozapine. Remains at high risk of self-harm given how abruptly and intensely his SI comes on. (1) Schizoaffective disorder, bipolar type: Plan 02/12/2023: * Revert clozapine back to previous dose (at which therapeutic blood level was established) of 100 mg QAM & 250 mg QHS * Start trial of citalopram 10 mg daily, titrate rapidly to 20 mg daily. * Start scheduled lorazepam 0.5 mg TID * Continue lithium 600 mg QAM & 900 mg QHS given lithium level this AM of 0.9 mmol/L * A private room remains medically necessary for the safety of self and others due to pt's significant irritability : * Continue clozapine 300 mg QHS * Continue lithium 600 mg QAM & 900 mg QHS * [place] level in AM (too late to obtain trough level today) * A private room remains medically necessary for the safety of self and others due to pt's significant irritability 02/10/2023: Continue current medications and tx plan. 02/09/2023: Increase clozapine to 300mg HS. 02/08/2023: Continue current medications and tx plan. Recheck Li level on 02/11/2023. 02/07/2023: Continue current medications and tx plan. 02/06/2023: Increase Lithobid from 600mg BID to 600mg qAM and 900mg HS. 02/05/2023: Continue current medications and tx plan. 02/04/2023: Consider SSRI trial once [address] records can be reviewed and once he becomes willing to consider medication adjustments. 02/03/23: The patient is not willing to discuss medication changes and will not accept Ativan or Haldol prns at this time. Records from [address] pending. 02/02/23: The patient was admitted to the [facility] ([facility] mental health unit) on q15 min checks (behavioral with suicide precautions) for safety. The patient will participate in group, recreational, and milieu therapies and will be offered additional individual and family sessions as clinically appropriate. Will check orthostatics and hold am clozaril with plan to shift dosing more toward hs. [place] level in am, does not appear toxic but his level was not a true trough. Inventory Assets Strengths: cooperative at [facility], help seeking Needs: improve coping, improve insight into condition Suicide Risk Level Suicide Risk Level: High-Moderate (q15 min suicide checks) (depression, psychosis and intermittent SI but feels safe in the hospital and feels comfortable letting nurses know if he feels unable to remain safe or requires additional support) Risk Factors Assessment Male: Yes : Yes Do You Have Access To A Gun?: No Mental Health Diagnoses: Yes Previous Psychiatric Hospitalization: Yes Protective Factors Assessment Employed: No Supportive Family: Yes Interval History Identifying Information NASEEM MCGEE is a 27-year-old M, resident of [place], has a history of schizoaffective disorder and multiple hospitalizations (including [facility]), and was admitted on 02/02/23 08:59 on a 201 voluntary commitment for SI in the context of increase in paranoid delusions. Chief Complaint "Not so great". Review of Systems Sleep Information Total Hours of Sleep: 7.5 Meal Information Percent Meal Consumed - Breakfast: 100 Percent Meal Consumed - Lunch: 90 Percent Meal Consumed - Dinner: 100 Subjective Subjective Patient was seen & assessed and interval progress reviewed in a multidisciplinary team meeting with nursing and social work. For details, see "Impression" section below. Physical Exam Psychiatric Orientation: alert, oriented to person, oriented to place, oriented to time and + guarded Apperance: appropriately dressed and appropriately groomed Eye Contact: + poor eye contact Motor Behavior: + tremor (hands) Speech: + abnormal rate/rhythm/volume of speech Affect: + irritable affect Mood: + irritable mood and + dysphoric mood Thought Process: + concrete thought process Thought Content: + paranoid, + delusions and + persecution Suicidal Thoughts: denies suicidal plan (none for unit, to walk in front of car outside of hospital); + reports suicidal thoughts Homicidal Thoughts: denies homicidal thoughts Hallucinations: + auditory hallucinations; no visual hallucinations Cognition: language grossly intact; + attention not intact Insight: + limited insight Judgment: + limited judgement Vital Signs (Past 24 Hours) Last Vital Signs Temp 36.9 C 02/12/23 06:40 Pulse 120 H 02/12/23 06:40 Resp 16 02/12/23 06:40 BP 86/51 L 02/12/23 06:40 Pulse Ox 98 02/09/23 06:00 O2 Del Method Room Air 02/09/23 06:00 Results & Data ([facility]) Laboratory Results Laboratory Results - last 24 hr 02/12/23 07:40 [place] 0.9 Current Inpatient Medications Current Inpatient Medications: Current Inpatient Medications Acetaminophen (Acetaminophen 325 Mg Tab) 650 mg PO Q4H PRN PRN Reason: Headache or Minor Fever Stop: 03/04/23 08:58 Al Hydrox/Mg Hydrox/Simethicone (Aluminum/Magnesium Susp 30 Ml Udc) 30 ml PO Q4H PRN PRN Reason: GI Upset Stop: 03/04/23 08:58 Benztropine Mesylate (Benztropine Mesylate 1 Mg Tab) 1 mg PO Q6 PRN PRN Reason: Muscle Spasm Stop: 03/04/23 15:28 Last Admin: 02/11/23 22:58 Dose: 1 mg Bismuth Subsalicylate (Bismuth Subsalicylate Liqd 236 Ml) 15 ml PO PRN PRN PRN Reason: Loose Stool Stop: 03/04/23 08:58 Clozapine (Clozapine 100 Mg Tab) 300 mg PO [facility] Stop: 03/11/23 21:59 Last Admin: 02/11/23 20:53 Dose: 300 mg Docusate Sodium (Docusate Sodium 100 Mg Cap) 250 mg PO DAILY PRN PRN Reason: Constipation Stop: 03/13/23 08:59 Haloperidol (Haloperidol 5 Mg Tab) 5 mg PO Q4 PRN PRN Reason: Agitation Stop: 03/04/23 15:28 [place] Carbonate ([place] Carbonate Slow Rel 300 Mg Tab) 600 mg PO QAM [facility] Stop: 03/09/23 08:59 Last Admin: 02/12/23 09:14 Dose: 600 mg [place] Carbonate ([place] Carbonate 450 Mg Tabcr) 900 mg PO [facility] Stop: 03/08/23 21:59 Last Admin: 02/11/23 20:53 Dose: 900 mg Lorazepam (Lorazepam 1 Mg Tab) 1 mg PO Q6 PRN PRN Reason: Anxiety/Agitation Stop: 03/04/23 15:28 Last Admin: 02/11/23 22:58 Dose: 1 mg Magnesium Hydroxide (Magnesium Hydroxide Susp 30 Ml Udc) 30 ml PO DAILY PRN PRN Reason: Constipation Stop: 03/04/23 08:58 Polyethylene Glycol (Polyethylene (Miralax) 17 Gm Pack) 17 gm PO DAILY PRN PRN Reason: Constipation 1st choice Stop: 03/12/23 16:17 Sodium Chloride (Sodium Chloride 0.65% Na Soln 45 Ml ([place])) 1 - 2 sprays NA PRN PRN PRN Reason: Nasal Dryness/Congestion Stop: 03/04/23 08:58 Mental Health & Subst Abuse Tx Psychiatrist Name of Psychiatrist: Kody Rogers Psychiatrist's Date Of Appointment With Psychiatric Provider: 02/15/23 Time of Appointment with Psychiatrist: 11:20 AM Psychiatric Appointment Comment: [address], [place] [address] Therapist Name of Therapist: Cheko Zamarripa Therapist's Date of Therapist Appointment: 02/14/2023 Time of Therapist Appointment: 1pm Therapy Appointment Comment: [address], [address], [place] [address] Nickel Plant Operator Name of Nickel Plant Operator: Rose @ [facility] Phone Number for Nickel Plant Operator: [phone] Case Management Appointment Comment: Please resume your normal schedule. Post Discharge Appointments Primary Care Physician Name Of Family Doctor/PCP: Kody Dunn Primary Care Provider Appointment Comment: [address], [place] [address]
[2023-02-12] MEDS: LORazepam 0.5 MG TAB PO SCH ×2 (14:46→20:55)
[2023-02-12] MEDS: cloZAPine 100 MG TAB PO SCH ×2 (14:46→20:56)
[2023-02-12] MEDS: CITALOPRAM 20 MG TAB PO SCH (15:42)
[2023-02-12] MEDS: LITHIUM CARBONATE 450 MG TABCR PO SCH (20:57)
[2023-02-13 08:30] LABS: Basophils # (auto) 0.09 K/uL (0-0.2); Basophils % (auto) 0.8 %; Eosinophils # (auto) 0.41 K/uL (0-0.50); Eosinophils % (auto) 3.8 %; Hematocrit (blood only) 46.9 % (42.0-52.0); Hemoglobin 15.7 g/dl (14.0-18.0); Immature Granulocytes # (auto) 0.16 K/uL (0.01-0.20); Immature Granulocytes % (auto) 1.5 %; Lymphocytes # (auto) 2.69 K/uL (1.2-3.4); Mean Corpuscular Hemoglobin 27.9 pg (25.0-34.0); Mean Corpuscular Hgb Conc 33.5 g/dL (32.0-36.0); Mean Corpuscular Volume 83.5 fL (80.0-100.0); Mean Platelet Volume 9.9 fL (9.4-12.4); Monocytes % (auto) 8.4 %; Neutrophils # (auto) 6.52 K/uL (1.40-6.50); Neutrophils % (auto) 60.5 %; Platelet Count 304 K/uL (130-400); RDW Coefficient of Variation 13.7 % (11.5-14.5); RDW Standard Deviation 41.8 fL (36.4-46.3); Red Blood Count 5.62 M/uL (4.70-6.10); White Blood Count 10.77 K/ul (4.8-10.8)
[2023-02-13] MEDS: LORazepam 0.5 MG TAB PO SCH ×3 (09:00→20:57)
[2023-02-13] MEDS: cloZAPine 100 MG TAB PO SCH ×2 (09:00→20:57)
[2023-02-13] MEDS: CITALOPRAM 20 MG TAB PO SCH (09:00)
[2023-02-13] MEDS: LITHIUM CARBONATE SLOW REL 300 MG TAB PO SCH (09:00)
--- NOTE | 2023-02-13 14:30 | Psychiatric Progress Note ---
Date of Service February 13, 2023 Impression / Recommendations Impression 27 yo man with history of schizoaffective disorder, who resides in a local personal long term due to severe persistent degree of symptoms, has been hospitalized several times following state hospital stay, currently suicidal with plan to jump into traffic due to dizziness and worsening of his baseline paranoid delusions. Diagnostically consistent with acute exacerbation of schizoaffective disorder as well as likely major depressive episode. MNPR due to psychosis severity, paranoia, HI 02/13/2023: Remains irritable, avoidant and continues to pace. He is fairly uncooperative; for example, he's rescinded all releases of information, including for where he resides. Explains this is because he's suicidal and, in the case of his long term, he's "upset with them". Has tolerated resumption of previous clozapine dose of 350 mg/day in divided doses. Blood pressure has been more stable without postural drops. Has also tolerated start of citalopram 20 mg daily and scheduled lorazepam 0.5 mg TID without evidence of adverse effects, including sedation. Not much change is noted in pt's anxiety. 02/12/2023: Li level was 0.9 mmol/L, nearly ideal and strongly supporting that current lithium dose is appropriate. Remains withdrawn, avoidant, irritable. Continues to pace while listening to music and is somewhat difficult to redirect from this in order to converse. Irritability appears to have increased since increase of HS clozapine and discontinuation of AM dose (so he's now taking 50 mg/day less but all in a single dose). He has significant postural blood pressure drop with heart rate increase. 02/11/2023: Pt has been withdrawn, avoidant. Spending most of his time in bed when he's not pacing the bernard listening to music. On approach, pt presents as somewhat sullen and much less interested in talking that during the 2 previous admissions during which I've seen him. While I'm speaking with him, get retrieves breakfast from the cart, sits, and starts munching toast while glaring at me. A short while later, he abruptly got up and returned to his room. I asked pt about a fine hand tremor I noted, but he denied having this. He appears to have tolerated increase in clozapine. I've reviewed the outside records that have been obtained from [place]. 02/10/2023: Ongoing intermittent SI and ongoing depression, seems less dizzy today even after increase of clozapine. Orthostatic vital signs remained stable even with increase of clozapine. Remains at high risk of self-harm given how abruptly and intensely his SI comes on. (1) Schizoaffective disorder, bipolar type: Plan 02/13/2023: * continue clozapine 100 mg QAM & 250 mg QHS * continue citalopram 20 mg daily. * continue scheduled lorazepam 0.5 mg TID; consider further titration as tolerated * continue lithium 600 mg QAM & 900 mg QHS * A private room remains medically necessary for the safety of self and others due to pt's significant irritability 02/12/2023: * Revert clozapine back to previous dose (at which therapeutic blood level was established) of 100 mg QAM & 250 mg QHS * Start trial of citalopram 10 mg daily, titrate rapidly to 20 mg daily. * Start scheduled lorazepam 0.5 mg TID * Continue lithium 600 mg QAM & 900 mg QHS given lithium level this AM of 0.9 mmol/L * A private room remains medically necessary for the safety of self and others due to pt's significant irritability : * Continue clozapine 300 mg QHS * Continue lithium 600 mg QAM & 900 mg QHS * [place] level in AM (too late to obtain trough level today) * A private room remains medically necessary for the safety of self and others due to pt's significant irritability 02/10/2023: Continue current medications and tx plan. 02/09/2023: Increase clozapine to 300mg HS. 02/08/2023: Continue current medications and tx plan. Recheck Li level on 02/11/2023. 02/07/2023: Continue current medications and tx plan. 02/06/2023: Increase Lithobid from 600mg BID to 600mg qAM and 900mg HS. 02/05/2023: Continue current medications and tx plan. 02/04/2023: Consider SSRI trial once [place] records can be reviewed and once he becomes willing to consider medication adjustments. 02/03/23: The patient is not willing to discuss medication changes and will not accept Ativan or Haldol prns at this time. Records from [place] pending. 02/02/23: The patient was admitted to the [facility] ([facility] mental health unit) on q15 min checks (behavioral with suicide precautions) for safety. The patient will participate in group, recreational, and milieu therapies and will be offered additional individual and family sessions as clinically appropriate. Will check orthostatics and hold am clozaril with plan to shift dosing more toward hs. [place] level in am, does not appear toxic but his level was not a true trough. Inventory Assets Strengths: cooperative at [facility], help seeking Needs: improve coping, improve insight into condition Suicide Risk Level Suicide Risk Level: High-Moderate (q15 min suicide checks) (depression, psychosis and intermittent SI but feels safe in the hospital and feels comfortable letting nurses know if he feels unable to remain safe or requires additional support) Risk Factors Assessment Male: Yes : Yes Do You Have Access To A Gun?: No Mental Health Diagnoses: Yes Previous Psychiatric Hospitalization: Yes Protective Factors Assessment Employed: No Supportive Family: Yes Interval History Identifying Information NASEEM MCGEE is a 27-year-old M, resident of [facility], has a history of schizoaffective disorder and multiple hospitalizations (including [facility]), and was admitted on 02/02/23 08:59 on a 201 voluntary commitment for SI in the context of increase in paranoid delusions. Chief Complaint "I'm suicidal". Review of Systems Sleep Information Total Hours of Sleep: 6.5 Meal Information Percent Meal Consumed - Breakfast: 0 Percent Meal Consumed - Lunch: 10 Percent Meal Consumed - Dinner: 100 Nutrition Comment: pt. had a few bites and is agreeable to power kayla Subjective Subjective Patient was seen & assessed and interval progress reviewed in multidisciplinary meeting with the treatment team Physical Exam Psychiatric Orientation: alert, oriented to person, oriented to place, oriented to time and + guarded; + uncooperative Apperance: appropriately dressed and appropriately groomed Eye Contact: + poor eye contact Motor Behavior: + tremor (hands) Speech: + abnormal rate/rhythm/volume of speech Affect: + irritable affect Mood: + irritable mood and + dysphoric mood Thought Process: + concrete thought process Thought Content: + paranoid, + delusions and + persecution Suicidal Thoughts: denies suicidal plan (none for unit, to walk in front of car outside of hospital); + reports suicidal thoughts Homicidal Thoughts: denies homicidal thoughts Hallucinations: + auditory hallucinations; no visual hallucinations Cognition: language grossly intact; + attention not intact Insight: + limited insight Judgment: + limited judgement Vital Signs (Past 24 Hours) Last Vital Signs Temp 36.8 C 02/13/23 06:42 Pulse 103 H 02/13/23 06:43 Resp 16 02/13/23 06:42 BP 107/62 02/13/23 06:43 Pulse Ox 98 02/09/23 06:00 O2 Del Method Room Air 02/09/23 06:00 Results & Data ([facility]) Laboratory Results Laboratory Results - last 24 hr 02/13/23 08:06 WBC 10.77 RBC 5.62 Hgb 15.7 Hct 46.9 MCV 83.5 MCH 27.9 MCHC 33.5 RDW Std Deviation 41.8 RDW Coeff of [place] 13.7 Plt Count 304 MPV 9.9 Immature Gran % (Auto) 1.5 Neut % (Auto) 60.5 Lymph % (Auto) 25.0 [place] % (Auto) 8.4 Eos % (Auto) 3.8 Baso % (Auto) 0.8 Neut # (Auto) 6.52 H Lymph # (Auto) 2.69 [place] # (Auto) 0.90 H Eos # (Auto) 0.41 Baso # (Auto) 0.09 Immature Gran # (Auto) 0.16 Current Inpatient Medications Current Inpatient Medications: Current Inpatient Medications Acetaminophen (Acetaminophen 325 Mg Tab) 650 mg PO Q4H PRN PRN Reason: Headache or Minor Fever Stop: 03/04/23 08:58 Al Hydrox/Mg Hydrox/Simethicone (Aluminum/Magnesium Susp 30 Ml Udc) 30 ml PO Q4H PRN PRN Reason: GI Upset Stop: 03/04/23 08:58 Benztropine Mesylate (Benztropine Mesylate 1 Mg Tab) 1 mg PO Q6 PRN PRN Reason: Muscle Spasm Stop: 03/04/23 15:28 Last Admin: 02/11/23 22:58 Dose: 1 mg Bismuth Subsalicylate (Bismuth Subsalicylate Liqd 236 Ml) 15 ml PO PRN PRN PRN Reason: Loose Stool Stop: 03/04/23 08:58 Citalopram Hydrobromide (Citalopram 20 Mg Tab) 20 mg PO QAM [facility] Stop: 03/14/23 14:44 Last Admin: 02/13/23 09:00 Dose: 20 mg Clozapine (Clozapine 100 Mg Tab) 250 mg PO HS [facility] Stop: 03/14/23 21:59 Last Admin: 02/12/23 20:56 Dose: 250 mg Clozapine (Clozapine 100 Mg Tab) 100 mg PO DAILY [facility] Stop: 03/14/23 13:29 Last Admin: 02/13/23 09:00 Dose: 100 mg Docusate Sodium (Docusate Sodium 100 Mg Cap) 250 mg PO DAILY PRN PRN Reason: Constipation Stop: 03/13/23 08:59 Haloperidol (Haloperidol 5 Mg Tab) 5 mg PO Q4 PRN PRN Reason: Agitation Stop: 03/04/23 15:28 [place] Carbonate ([place] Carbonate Slow Rel 300 Mg Tab) 600 mg PO QAM [facility] Stop: 03/09/23 08:59 Last Admin: 02/13/23 09:00 Dose: 600 mg [place] Carbonate ([place] Carbonate 450 Mg Tabcr) 900 mg PO HS [facility] Stop: 03/08/23 21:59 Last Admin: 02/12/23 20:57 Dose: 900 mg Lorazepam (Lorazepam 1 Mg Tab) 1 mg PO Q6 PRN PRN Reason: Anxiety/Agitation Stop: 03/04/23 15:28 Last Admin: 02/11/23 22:58 Dose: 1 mg Lorazepam (Lorazepam 0.5 Mg Tab) 0.5 mg PO TID [facility] Stop: 03/14/23 13:59 Last Admin: 02/13/23 13:40 Dose: Not Given Magnesium Hydroxide (Magnesium Hydroxide Susp 30 Ml Udc) 30 ml PO DAILY PRN PRN Reason: Constipation Stop: 03/04/23 08:58 Polyethylene Glycol (Polyethylene (Miralax) 17 Gm Pack) 17 gm PO DAILY PRN PRN Reason: Constipation 1st choice Stop: 03/12/23 16:17 Sodium Chloride (Sodium Chloride 0.65% Na Soln 45 Ml ([place])) 1 - 2 sprays NA PRN PRN PRN Reason: Nasal Dryness/Congestion Stop: 03/04/23 08:58 Mental Health & Subst Abuse Tx Psychiatrist Name of Psychiatrist: Kody Rogers Psychiatrist's Date Of Appointment With Psychiatric Provider: 02/15/23 Time of Appointment with Psychiatrist: 11:20 AM Psychiatric Appointment Comment: [address], [place] [address] Therapist Name of Therapist: Cheko Zamarripa Therapist's Date of Therapist Appointment: 02/14/2023 Time of Therapist Appointment: 1pm Therapy Appointment Comment: [address], [address], [place] [address] Piercing Artist Name of Piercing Artist: Rose @ [place] [facility] Phone Number for Piercing Artist: [phone] Case Management Appointment Comment: Please resume your normal schedule. Post Discharge Appointments Primary Care Physician Name Of Family Doctor/PCP: Kody Dunn Primary Care Provider Appointment Comment: [address], [place] [address]
[2023-02-13] MEDS: LITHIUM CARBONATE 450 MG TABCR PO SCH (20:57)
--- NOTE | 2023-02-14 10:08 | Psychiatric Progress Note ---
Date of Service February 14, 2023 Impression / Recommendations Impression 27 yo man with history of schizoaffective disorder, who resides in a local personal intermediate due to severe persistent degree of symptoms, has been hospitalized several times following state hospital stay, currently suicidal with plan to jump into traffic due to dizziness and worsening of his baseline paranoid delusions. Diagnostically consistent with acute exacerbation of schizoaffective disorder as well as likely major depressive episode. MNPR due to psychosis severity, paranoia, HI 02/14/2023: Incremental improvement seen in that pt is a little less abrupt. He has provided requested releases as of last night. Having some episodes of hypotension, though these are infrequent and do not appear postural. This is one of the more common side effects with clozapine, but it's unclear why this hasn't been seen previously. 02/13/2023: Remains irritable, avoidant and continues to pace. He is fairly uncooperative; for example, he's rescinded all releases of information, including for where he resides. Explains this is because he's suicidal and, in the case of his intermediate, he's "upset with them". Has tolerated resumption of previous clozapine dose of 350 mg/day in divided doses. Blood pressure has been more stable without postural drops. Has also tolerated start of citalopram 20 mg daily and scheduled lorazepam 0.5 mg TID without evidence of adverse effects, including sedation. Not much change is noted in pt's anxiety. 02/12/2023: Li level was 0.9 mmol/L, nearly ideal and strongly supporting that current lithium dose is appropriate. Remains withdrawn, avoidant, irritable. Continues to pace while listening to music and is somewhat difficult to redirect from this in order to converse. Irritability appears to have increased since increase of HS clozapine and discontinuation of AM dose (so he's now taking 50 mg/day less but all in a single dose). He has significant postural blood pressure drop with heart rate increase. 02/11/2023: Pt has been withdrawn, avoidant. Spending most of his time in bed when he's not pacing the [facility]ernard listening to music. On approach, pt presents as somewhat sullen and much less interested in talking that during the 2 previous admissions during which I've seen him. While I'm speaking with him, get retrieves breakfast from the cart, sits, and starts munching toast while glaring at me. A short while later, he abruptly got up and returned to his room. I asked pt about a fine hand tremor I noted, but he denied having this. He appears to have tolerated increase in clozapine. I've reviewed the outside records that have been obtained from [place]. 02/10/2023: Ongoing intermittent SI and ongoing depression, seems less dizzy today even after increase of clozapine. Orthostatic vital signs remained stable even with increase of clozapine. Remains at high risk of self-harm given how abruptly and intensely his SI comes on. (1) Schizoaffective disorder, bipolar type: Plan 02/14/2023: * continue clozapine 100 mg QAM & 250 mg QHS * continue citalopram 20 mg daily. * stop lorazepam 0.5 mg TID due to refusal of scheduled doses * continue lorazepam 1 mg Q6 Hr PRN * continue lithium 600 mg QAM & 900 mg QHS * A private room remains medically necessary for the safety of self and others due to pt's significant irritability 02/13/2023: * continue clozapine 100 mg QAM & 250 mg QHS * continue citalopram 20 mg daily. * continue scheduled lorazepam 0.5 mg TID; consider further titration as tolerated * continue lithium 600 mg QAM & 900 mg QHS * A private room remains medically necessary for the safety of self and others due to pt's significant irritability 02/12/2023: * Revert clozapine back to previous dose (at which therapeutic blood level was established) of 100 mg QAM & 250 mg QHS * Start trial of citalopram 10 mg daily, titrate rapidly to 20 mg daily. * Start scheduled lorazepam 0.5 mg TID * Continue lithium 600 mg QAM & 900 mg QHS given lithium level this AM of 0.9 mmol/L * A private room remains medically necessary for the safety of self and others due to pt's significant irritability : * Continue clozapine 300 mg QHS * Continue lithium 600 mg QAM & 900 mg QHS * [place] level in AM (too late to obtain trough level today) * A private room remains medically necessary for the safety of self and others due to pt's significant irritability 02/10/2023: Continue current medications and tx plan. 02/09/2023: Increase clozapine to 300mg HS. 02/08/2023: Continue current medications and tx plan. Recheck Li level on 02/11/2023. 02/07/2023: Continue current medications and tx plan. 02/06/2023: Increase Lithobid from 600mg BID to 600mg qAM and 900mg HS. 02/05/2023: Continue current medications and tx plan. 02/04/2023: Consider SSRI trial once [place] records can be reviewed and once he becomes willing to consider medication adjustments. 02/03/23: The patient is not willing to discuss medication changes and will not accept Ativan or Haldol prns at this time. Records from [place] pending. 02/02/23: The patient was admitted to the [facility] ([facility] unit) on q15 min checks (behavioral with suicide precautions) for safety. The patient will participate in group, recreational, and milieu therapies and will be offered additional individual and family sessions as clinically appropriate. Will check orthostatics and hold am clozaril with plan to shift dosing more toward hs. [place] level in am, does not appear toxic but his level was not a true trough. Inventory Assets Strengths: cooperative at [facility], help seeking Needs: improve coping, improve insight into condition Suicide Risk Level Suicide Risk Level: High-Moderate (q15 min suicide checks) (depression, psychosis and intermittent SI but feels safe in the hospital and feels comfortable letting nurses know if he feels unable to remain safe or requires additional support) Risk Factors Assessment Male: Yes : Yes Do You Have Access To A Gun?: No Mental Health Diagnoses: Yes Previous Psychiatric Hospitalization: Yes Protective Factors Assessment Employed: No Supportive Family: Yes Interval History Identifying Information NASEEM MCGEE is a 27-year-old M, resident of [facility], has a history of schizoaffective disorder and multiple hospitalizations (including [facility]), and was admitted on 02/02/23 08:59 on a 201 voluntary commitment for SI in the context of increase in paranoid delusions. Chief Complaint "Bad". Review of Systems Sleep Information Total Hours of Sleep: 8.75 Meal Information Percent Meal Consumed - Breakfast: 0 Percent Meal Consumed - Lunch: 10 Percent Meal Consumed - Dinner: 100 Nutrition Comment: pt. had a few bites and is agreeable to power kayla Subjective Subjective Patient was seen & assessed and interval progress reviewed with in a multidisciplinary team meeting with the treatment team. For details, see the "Impression" section below. Physical Exam Psychiatric Orientation: alert, oriented to person, oriented to place, oriented to time and + guarded Apperance: appropriately dressed and appropriately groomed Eye Contact: + poor eye contact Motor Behavior: + tremor (hands) Speech: + abnormal rate/rhythm/volume of speech Affect: + irritable affect Mood: + irritable mood and + dysphoric mood Thought Process: + concrete thought process Thought Content: + paranoid, + delusions and + persecution Suicidal Thoughts: denies suicidal plan (none for unit, to walk in front of car outside of hospital); + reports suicidal thoughts Homicidal Thoughts: denies homicidal thoughts Hallucinations: + auditory hallucinations; no visual hallucinations Cognition: language grossly intact; + attention not intact Insight: + limited insight Judgment: + limited judgement Vital Signs (Past 24 Hours) Last Vital Signs Temp 36.6 C 02/14/23 06:38 Pulse 98 H 02/14/23 06:39 Resp 16 02/14/23 06:38 BP 89/56 L 02/14/23 06:39 Pulse Ox 98 02/09/23 06:00 O2 Del Method Room Air 02/09/23 06:00 Results & Data ([facility]) Current Inpatient Medications Current Inpatient Medications: Current Inpatient Medications Acetaminophen (Acetaminophen 325 Mg Tab) 650 mg PO Q4H PRN PRN Reason: Headache or Minor Fever Stop: 03/04/23 08:58 Al Hydrox/Mg Hydrox/Simethicone (Aluminum/Magnesium Susp 30 Ml Udc) 30 ml PO Q4H PRN PRN Reason: GI Upset Stop: 03/04/23 08:58 Benztropine Mesylate (Benztropine Mesylate 1 Mg Tab) 1 mg PO Q6 PRN PRN Reason: Muscle Spasm Stop: 03/04/23 15:28 Last Admin: 02/11/23 22:58 Dose: 1 mg Bismuth Subsalicylate (Bismuth Subsalicylate Liqd 236 Ml) 15 ml PO PRN PRN PRN Reason: Loose Stool Stop: 03/04/23 08:58 Citalopram Hydrobromide (Citalopram 20 Mg Tab) 20 mg PO QAM [facility] Stop: 03/14/23 14:44 Last Admin: 02/13/23 09:00 Dose: 20 mg Clozapine (Clozapine 100 Mg Tab) 250 mg PO HS [facility] Stop: 03/14/23 21:59 Last Admin: 02/13/23 20:57 Dose: 250 mg Clozapine (Clozapine 100 Mg Tab) 100 mg PO DAILY [facility] Stop: 03/14/23 13:29 Last Admin: 02/13/23 09:00 Dose: 100 mg Docusate Sodium (Docusate Sodium 100 Mg Cap) 250 mg PO DAILY PRN PRN Reason: Constipation Stop: 03/13/23 08:59 Haloperidol (Haloperidol 5 Mg Tab) 5 mg PO Q4 PRN PRN Reason: Agitation Stop: 03/04/23 15:28 [place] Carbonate ([place] Carbonate Slow Rel 300 Mg Tab) 600 mg PO QAM [facility] Stop: 03/09/23 08:59 Last Admin: 02/13/23 09:00 Dose: 600 mg [place] Carbonate ([place] Carbonate 450 Mg Tabcr) 900 mg PO HS [facility] Stop: 03/08/23 21:59 Last Admin: 02/13/23 20:57 Dose: 900 mg Lorazepam (Lorazepam 1 Mg Tab) 1 mg PO Q6 PRN PRN Reason: Anxiety/Agitation Stop: 03/04/23 15:28 Last Admin: 02/11/23 22:58 Dose: 1 mg Lorazepam (Lorazepam 0.5 Mg Tab) 0.5 mg PO TID [facility] Stop: 03/14/23 13:59 Last Admin: 02/13/23 20:57 Dose: Not Given Magnesium Hydroxide (Magnesium Hydroxide Susp 30 Ml Udc) 30 ml PO DAILY PRN PRN Reason: Constipation Stop: 03/04/23 08:58 Polyethylene Glycol (Polyethylene (Miralax) 17 Gm Pack) 17 gm PO DAILY PRN PRN Reason: Constipation 1st choice Stop: 03/12/23 16:17 Sodium Chloride (Sodium Chloride 0.65% Na Soln 45 Ml ([place])) 1 - 2 sprays NA PRN PRN PRN Reason: Nasal Dryness/Congestion Stop: 03/04/23 08:58 Mental Health & Subst Abuse Tx Psychiatrist Name of Psychiatrist: Kody Rogers Psychiatrist's Date Of Appointment With Psychiatric Provider: 02/15/23 Time of Appointment with Psychiatrist: 11:20 AM Psychiatric Appointment Comment: [address], [place] [address] Therapist Name of Therapist: Cheko Zamarripa Therapist's Date of Therapist Appointment: 02/14/2023 Time of Therapist Appointment: 1pm Therapy Appointment Comment: [address], [address], [place] [address] Client Project Coordinator Name of Client Project Coordinator: Rose @ [place] [facility] Phone Number for Client Project Coordinator: [phone] Case Management Appointment Comment: Please resume your normal schedule. Post Discharge Appointments Primary Care Physician Name Of Family Doctor/PCP: Kody Dunn Primary Care Provider Appointment Comment: [address], [place] [address]
[2023-02-14] MEDS: cloZAPine 100 MG TAB PO SCH ×2 (10:18→21:44)
[2023-02-14] MEDS: LITHIUM CARBONATE SLOW REL 300 MG TAB PO SCH (10:18)
[2023-02-14] MEDS: CITALOPRAM 20 MG TAB PO SCH (10:19)
[2023-02-14] MEDS: LORazepam 0.5 MG TAB PO SCH (10:26)
[2023-02-14] MEDS: LITHIUM CARBONATE 450 MG TABCR PO SCH (21:43)
[2023-02-15] MEDS: CITALOPRAM 20 MG TAB PO SCH (09:05)
[2023-02-15] MEDS: cloZAPine 100 MG TAB PO SCH ×2 (09:05→21:10)
[2023-02-15] MEDS: LITHIUM CARBONATE SLOW REL 300 MG TAB PO SCH (09:05)
--- NOTE | 2023-02-15 10:07 | Psychiatric Progress Note ---
Date of Service February 15, 2023 Impression / Recommendations Impression 27 yo man with history of schizoaffective disorder, who resides in a local personal jail due to severe persistent degree of symptoms, has been hospitalized several times following state hospital stay, currently suicidal with plan to jump into traffic due to dizziness and worsening of his baseline paranoid delusions. Diagnostically consistent with acute exacerbation of schizoaffective disorder as well as likely major depressive episode. MNPR due to psychosis severity, paranoia, HI 02/15/2023: Postural hypotensive episodes continue, with systolic pressures as low as 80 mmHg (compared to supine diastolic of 79 mmHg). Pt has been speaking of not eating "because there's no point", and it's not entirely clear whether his fluid intake has been adequate. Treatment team discussed options. Since he's back on clozapine dose at which he previously had a therapeutic level, has a recent therapeutic lithium level at the current dose, and has recently started SSRI, consideration was given to the possibility of ECT. Will seek to obtain history from family about whether pt has had ECT in the past. We may be forced to reduce clozapine dose if postural hypotension continues. Well obtain CBC, CMP to monitor for evidence of metabolic or other changes. 02/14/2023: Incremental improvement seen in that pt is a little less abrupt. He has provided requested releases as of last night. Having some episodes of hypotension, though these are infrequent and do not appear postural. This is one of the more common side effects with clozapine, but it's unclear why this hasn't been seen previously. 02/13/2023: Remains irritable, avoidant and continues to pace. He is fairly uncooperative; for example, he's rescinded all releases of information, including for where he resides. Explains this is because he's suicidal and, in the case of his jail, he's "upset with them". Has tolerated resumption of previous clozapine dose of 350 mg/day in divided doses. Blood pressure has been more stable without postural drops. Has also tolerated start of citalopram 20 mg daily and scheduled lorazepam 0.5 mg TID without evidence of adverse effects, including sedation. Not much change is noted in pt's anxiety. 02/12/2023: Li level was 0.9 mmol/L, nearly ideal and strongly supporting that current lithium dose is appropriate. Remains withdrawn, avoidant, irritable. Continues to pace while listening to music and is somewhat difficult to redirect from this in order to converse. Irritability appears to have increased since increase of HS clozapine and discontinuation of AM dose (so he's now taking 50 mg/day less but all in a single dose). He has significant postural blood pressure drop with heart rate increase. 02/11/2023: Pt has been withdrawn, avoidant. Spending most of his time in bed when he's not pacing the [place] listening to music. On approach, pt presents as somewhat sullen and much less interested in talking that during the 2 previous admissions during which I've seen him. While I'm speaking with him, get retrieves breakfast from the cart, sits, and starts munching toast while glaring at me. A short while later, he abruptly got up and returned to his room. I asked pt about a fine hand tremor I noted, but he denied having this. He appears to have tolerated increase in clozapine. I've reviewed the outside records that have been obtained from [facility]. 02/10/2023: Ongoing intermittent SI and ongoing depression, seems less dizzy today even after increase of clozapine. Orthostatic vital signs remained stable even with increase of clozapine. Remains at high risk of self-harm given how abruptly and intensely his SI comes on. (1) Schizoaffective disorder, bipolar type: Plan 02/15/2023: * Labs today: CBC with differential, CMP * Monitor fluid intake * continue clozapine 100 mg QAM & 250 mg QHS * continue lithium 600 mg QAM & 900 mg QHS * continue citalopram 20 mg daily. * continue lorazepam 1 mg Q6 Hr PRN * A private room remains medically necessary for the safety of self and others due to pt's significant irritability 02/14/2023: * continue clozapine 100 mg QAM & 250 mg QHS * continue citalopram 20 mg daily. * stop lorazepam 0.5 mg TID due to refusal of scheduled doses * continue lorazepam 1 mg Q6 Hr PRN * continue lithium 600 mg QAM & 900 mg QHS * A private room remains medically necessary for the safety of self and others due to pt's significant irritability 02/13/2023: * continue clozapine 100 mg QAM & 250 mg QHS * continue citalopram 20 mg daily. * continue scheduled lorazepam 0.5 mg TID; consider further titration as tolerated * continue lithium 600 mg QAM & 900 mg QHS * A private room remains medically necessary for the safety of self and others due to pt's significant irritability 02/12/2023: * Revert clozapine back to previous dose (at which therapeutic blood level was established) of 100 mg QAM & 250 mg QHS * Start trial of citalopram 10 mg daily, titrate rapidly to 20 mg daily. * Start scheduled lorazepam 0.5 mg TID * Continue lithium 600 mg QAM & 900 mg QHS given lithium level this AM of 0.9 mmol/L * A private room remains medically necessary for the safety of self and others due to pt's significant irritability : * Continue clozapine 300 mg QHS * Continue lithium 600 mg QAM & 900 mg QHS * [place] level in AM (too late to obtain trough level today) * A private room remains medically necessary for the safety of self and others due to pt's significant irritability 02/10/2023: Continue current medications and tx plan. 02/09/2023: Increase clozapine to 300mg HS. 02/08/2023: Continue current medications and tx plan. Recheck Li level on 02/11/2023. 02/07/2023: Continue current medications and tx plan. 02/06/2023: Increase Lithobid from 600mg BID to 600mg qAM and 900mg HS. 02/05/2023: Continue current medications and tx plan. 02/04/2023: Consider SSRI trial once [facility] records can be reviewed and once he becomes willing to consider medication adjustments. 02/03/23: The patient is not willing to discuss medication changes and will not accept Ativan or Haldol prns at this time. Records from [facility] pending. 02/02/23: The patient was admitted to the [facility] ([facility]) on q15 min checks (behavioral with suicide precautions) for safety. The patient will participate in group, recreational, and milieu therapies and will be offered additional individual and family sessions as clinically appropriate. Will check orthostatics and hold am clozaril with plan to shift dosing more toward hs. [place] level in am, does not appear toxic but his level was not a true trough. Inventory Assets Strengths: cooperative at [facility], help seeking Needs: improve coping, improve insight into condition Suicide Risk Level Suicide Risk Level: High-Moderate (q15 min suicide checks) (depression, psychosis and intermittent SI but feels safe in the hospital and feels comfortable letting nurses know if he feels unable to remain safe or requires additional support) Risk Factors Assessment Male: Yes : Yes Do You Have Access To A Gun?: No Mental Health Diagnoses: Yes Previous Psychiatric Hospitalization: Yes Protective Factors Assessment Employed: No Supportive Family: Yes Interval History Identifying Information NASEEM MCGEE is a 27-year-old M, resident of [facility], has a history of schizoaffective disorder and multiple hospitalizations (including [facility]), and was admitted on 02/02/23 08:59 on a 201 voluntary commitment for SI in the context of increase in paranoid delusions. Chief Complaint "Really bad". Review of Systems Sleep Information Total Hours of Sleep: 7 Meal Information Percent Meal Consumed - Breakfast: 0 Percent Meal Consumed - Lunch: 100 Percent Meal Consumed - Dinner: 100 Nutrition Comment: pt. had a few bites and is agreeable to power kayla Subjective Subjective Patient was seen & assessed and interval progress reviewed in a multidisciplinary team meeting with the treatment team. For details, see the "Impression" section below. Physical Exam Psychiatric Orientation: alert, oriented to person, oriented to place, oriented to time and + guarded Apperance: appropriately dressed and appropriately groomed Eye Contact: + poor eye contact Motor Behavior: + tremor (hands) Speech: + abnormal rate/rhythm/volume of speech Affect: + irritable affect Mood: + irritable mood and + dysphoric mood Thought Process: + concrete thought process Thought Content: + paranoid, + delusions and + persecution Suicidal Thoughts: denies suicidal plan (none for unit, to walk in front of car outside of hospital); + reports suicidal thoughts Homicidal Thoughts: denies homicidal thoughts Hallucinations: + auditory hallucinations; no visual hallucinations Cognition: language grossly intact; + attention not intact Insight: + limited insight Judgment: + limited judgement Vital Signs (Past 24 Hours) Last Vital Signs Temp 36.5 C 02/15/23 06:32 Pulse 103 H 02/15/23 06:33 Resp 16 02/15/23 06:32 BP 80/48 L 02/15/23 06:33 Pulse Ox 98 02/09/23 06:00 O2 Del Method Room Air 02/09/23 06:00 Results & Data ([facility]) Current Inpatient Medications Current Inpatient Medications: Current Inpatient Medications Acetaminophen (Acetaminophen 325 Mg Tab) 650 mg PO Q4H PRN PRN Reason: Headache or Minor Fever Stop: 03/04/23 08:58 Al Hydrox/Mg Hydrox/Simethicone (Aluminum/Magnesium Susp 30 Ml Udc) 30 ml PO Q4H PRN PRN Reason: GI Upset Stop: 03/04/23 08:58 Benztropine Mesylate (Benztropine Mesylate 1 Mg Tab) 1 mg PO Q6 PRN PRN Reason: Muscle Spasm Stop: 03/04/23 15:28 Last Admin: 02/11/23 22:58 Dose: 1 mg Bismuth Subsalicylate (Bismuth Subsalicylate Liqd 236 Ml) 15 ml PO PRN PRN PRN Reason: Loose Stool Stop: 03/04/23 08:58 Citalopram Hydrobromide (Citalopram 20 Mg Tab) 20 mg PO QAM [facility] Stop: 03/14/23 14:44 Last Admin: 02/15/23 09:05 Dose: 20 mg Clozapine (Clozapine 100 Mg Tab) 250 mg PO HS [facility] Stop: 03/14/23 21:59 Last Admin: 02/14/23 21:44 Dose: 250 mg Clozapine (Clozapine 100 Mg Tab) 100 mg PO DAILY [facility] Stop: 03/14/23 13:29 Last Admin: 02/15/23 09:05 Dose: 100 mg Docusate Sodium (Docusate Sodium 100 Mg Cap) 250 mg PO DAILY PRN PRN Reason: Constipation Stop: 03/13/23 08:59 Haloperidol (Haloperidol 5 Mg Tab) 5 mg PO Q4 PRN PRN Reason: Agitation Stop: 03/04/23 15:28 [place] Carbonate ([place] Carbonate Slow Rel 300 Mg Tab) 600 mg PO QAM [facility] Stop: 03/09/23 08:59 Last Admin: 02/15/23 09:05 Dose: 600 mg [place] Carbonate ([place] Carbonate 450 Mg Tabcr) 900 mg PO HS [facility] Stop: 03/08/23 21:59 Last Admin: 02/14/23 21:43 Dose: 900 mg Lorazepam (Lorazepam 1 Mg Tab) 1 mg PO Q6 PRN PRN Reason: Anxiety/Agitation Stop: 03/04/23 15:28 Last Admin: 02/11/23 22:58 Dose: 1 mg Magnesium Hydroxide (Magnesium Hydroxide Susp 30 Ml Udc) 30 ml PO DAILY PRN PRN Reason: Constipation Stop: 03/04/23 08:58 Polyethylene Glycol (Polyethylene (Miralax) 17 Gm Pack) 17 gm PO DAILY PRN PRN Reason: Constipation 1st choice Stop: 03/12/23 16:17 Sodium Chloride (Sodium Chloride 0.65% Na Soln 45 Ml ([place])) 1 - 2 sprays NA PRN PRN PRN Reason: Nasal Dryness/Congestion Stop: 03/04/23 08:58 Mental Health & Subst Abuse Tx Psychiatrist Name of Psychiatrist: Kody Rogers Psychiatrist's Date Of Appointment With Psychiatric Provider: 03/01/23 Time of Appointment with Psychiatrist: 1 PM Psychiatric Appointment Comment: [address], [place] [address] Therapist Name of Therapist: Cheko Zamarripa Therapist's Date of Therapist Appointment: 02/28/23 Time of Therapist Appointment: 1 PM Therapy Appointment Comment: [address], [address], [place] [address] Supervisor [employer] Name of Super[employer]: Rose [facility] [place] [facility] Phone Number for [employer]: [phone] Case Management Appointment Comment: Please resume your normal schedule. Post Discharge Appointments Primary Care Physician Name Of Family Doctor/PCP: Kody Dunn Primary Care Provider Appointment Comment: [address], [place] [address]
[2023-02-15 10:37] LABS: Basophils # (auto) 0.11 K/uL (0-0.2); Eosinophils # (auto) 0.31 K/uL (0-0.50); Eosinophils % (auto) 2.8 %; Hemoglobin 16.7 g/dl (14.0-18.0); Immature Granulocytes # (auto) 0.16 K/uL (0.01-0.20); Immature Granulocytes % (auto) 1.4 %; Lymphocytes # (auto) 2.41 K/uL (1.2-3.4); Lymphocytes % (auto) 21.8 %; Mean Corpuscular Hgb Conc 32.7 g/dL (32.0-36.0); Mean Corpuscular Volume 85.6 fL (80.0-100.0); Mean Platelet Volume 9.8 fL (9.4-12.4); Monocytes # (auto) 0.76 K/uL (0.11-0.59); Monocytes % (auto) 6.9 %; Neutrophils # (auto) 7.32 K/uL (1.40-6.50); Neutrophils % (auto) 66.1 %; Platelet Count 335 K/uL (130-400); RDW Coefficient of Variation 13.8 % (11.5-14.5); RDW Standard Deviation 43.1 fL (36.4-46.3); Red Blood Count 5.96 M/uL (4.70-6.10); White Blood Count 11.07 K/ul (4.8-10.8)
[2023-02-15 10:52] LABS: Albumin Level 4.4 gm/dl (3.4-5.0); Bilirubin,Total 0.6 mg/dl (0.2-1.0); Calcium 9.5 mg/dl (8.6-10.3); Potassium 4.1 mmol/L (3.5-5.1)
[2023-02-15 10:58] LABS: Albumin Globulin Ratio 1.9 (0.9-2); BUN Creatinine Ratio 8.1 (10-20); Creatinine Clr Calc Pharmacy 126.5 ml/min; Est GFR (African American) 104.9 ml/min; Est GFR (Non-African American) 90.5 ml/min; Globulin 2.3 gm/dl (2.5-4.0); Total Protein 6.7 gm/dl (6.0-8.3)
[2023-02-15] MEDS: LITHIUM CARBONATE 450 MG TABCR PO SCH (21:11)
[2023-02-16] MEDS: cloZAPine 100 MG TAB PO SCH ×2 (09:14→21:12)
[2023-02-16] MEDS: CITALOPRAM 20 MG TAB PO SCH (09:15)
[2023-02-16] MEDS: LITHIUM CARBONATE SLOW REL 300 MG TAB PO SCH (09:15)
--- NOTE | 2023-02-16 12:44 | Psychiatric Progress Note ---
Date of Service February 16, 2023 Impression / Recommendations Impression 27 yo man with history of schizoaffective disorder, who resides in a local personal fci due to severe persistent degree of symptoms, has been hospitalized several times following state hospital stay, currently suicidal with plan to jump into traffic due to dizziness and worsening of his baseline paranoid delusions. Diagnostically consistent with acute exacerbation of schizoaffective disorder as well as likely major depressive episode. MNPR due to psychosis severity, paranoia, HI 02/16/2023: Substantial improvement is seen. Starting yesterday evening, pt began reporting that his mood is better. He stopped spending all his time in bed and resumed his usual activity of walking the halls while listening to music on headphones. Today, pt spontaneously stopped walking, removed his headphones, and told me "I've been feeling better". He says he's stopped having suicidal thoughts. He still feels "a little dizzy" when he first gets up in the morning but as soon as he starts walking around this stops. Postural blood pressure change this afternoon is minimal. Labs (CBC, CMP) ordered yesterday show no significant abnormalities. 02/15/2023: Postural hypotensive episodes continue, with systolic pressures as low as 80 mmHg (compared to supine diastolic of 79 mmHg). Pt has been speaking of not eating "because there's no point", and it's not entirely clear whether his fluid intake has been adequate. Treatment team discussed options. Since he's back on clozapine dose at which he previously had a therapeutic level, has a recent therapeutic lithium level at the current dose, and has recently started SSRI, consideration was given to the possibility of ECT. Will seek to obtain history from family about whether pt has had ECT in the past. We may be forced to reduce clozapine dose if postural hyp otension continues. Well obtain CBC, CMP to monitor for evidence of metabolic or other changes. 02/14/2023: Incremental improvement seen in that pt is a little less abrupt. He has provided requested releases as of last night. Having some episodes of hypotension, though these are infrequent and do not appear postural. This is one of the more common side effects with clozapine, but it's unclear why this hasn't been seen previously. 02/13/2023: Remains irritable, avoidant and continues to pace. He is fairly uncooperative; for example, he's rescinded all releases of information, including for where he resides. Explains this is because he's suicidal and, in the case of his fci, he's "upset with them". Has tolerated resumption of previous clozapine dose of 350 mg/day in divided doses. Blood pressure has been more stable without postural drops. Has also tolerated start of citalopram 20 mg daily and scheduled lorazepam 0.5 mg TID without evidence of adverse effects, including sedation. Not much change is noted in pt's anxiety. 02/12/2023: Li level was 0.9 mmol/L, nearly ideal and strongly supporting that current lithium dose is appropriate. Remains withdrawn, avoidant, irritable. Continues to pace while listening to music and is somewhat difficult to redirect from this in order to converse. Irritability appears to have increased since increase of HS clozapine and discontinuation of AM dose (so he's now taking 50 mg/day less but all in a single dose). He has significant postural blood pressure drop with heart rate increase. 02/11/2023: Pt has been withdrawn, avoidant. Spending most of his time in bed when he's not pacing the bernard listening to music. On approach, pt presents as somewhat sullen and much less interested in talking that during the 2 previous admissions during which I've seen him. While I'm speaking with him, get retrieves breakfast from the cart, sits, and starts munching toast while glaring at me. A short while later, he abruptly got up and returned to his room. I asked pt about a fine hand tremor I noted, but he denied having this. He appears to have tolerated increase in clozapine. I've reviewed the outside records that have been obtained from [place]. 02/10/2023: Ongoing intermittent SI and ongoing depression, seems less dizzy today even after increase of clozapine. Orthostatic vital signs remained stable even with increase of clozapine. Remains at high risk of self-harm given how abruptly and intensely his SI comes on. (1) Schizoaffective disorder, bipolar type: Plan 02/16/2023: * continue clozapine 100 mg QAM & 250 mg QHS * continue lithium 600 mg QAM & 900 mg QHS * continue citalopram 20 mg daily. * continue lorazepam 1 mg Q6 Hr PRN * A private room remains medically necessary for the safety of self and others due to pt's restlessness and paranoia 02/15/2023: * Labs today: CBC with differential, CMP * Monitor fluid intake * continue clozapine 100 mg QAM & 250 mg QHS * continue lithium 600 mg QAM & 900 mg QHS * continue citalopram 20 mg daily. * continue lorazepam 1 mg Q6 Hr PRN * A private room remains medically necessary for the safety of self and others due to pt's significant irritability 02/14/2023: * continue clozapine 100 mg QAM & 250 mg QHS * continue citalopram 20 mg daily. * stop lorazepam 0.5 mg TID due to refusal of scheduled doses * continue lorazepam 1 mg Q6 Hr PRN * continue lithium 600 mg QAM & 900 mg QHS * A private room remains medically necessary for the safety of self and others due to pt's significant irritability 02/13/2023: * continue clozapine 100 mg QAM & 250 mg QHS * continue citalopram 20 mg daily. * continue scheduled lorazepam 0.5 mg TID; consider further titration as tolerated * continue lithium 600 mg QAM & 900 mg QHS * A private room remains medically necessary for the safety of self and others due to pt's significant irritability 02/12/2023: * Revert clozapine back to previous dose (at which therapeutic blood level was established) of 100 mg QAM & 250 mg QHS * Start trial of citalopram 10 mg daily, titrate rapidly to 20 mg daily. * Start scheduled lorazepam 0.5 mg TID * Continue lithium 600 mg QAM & 900 mg QHS given lithium level this AM of 0.9 mmol/L * A private room remains medically necessary for the safety of self and others due to pt's significant irritability : * Continue clozapine 300 mg QHS * Continue lithium 600 mg QAM & 900 mg QHS * [place] level in AM (too late to obtain trough level today) * A private room remains medically necessary for the safety of self and others due to pt's significant irritability 02/10/2023: Continue current medications and tx plan. 02/09/2023: Increase clozapine to 300mg HS. 02/08/2023: Continue current medications and tx plan. Recheck Li level on 02/11/2023. 02/07/2023: Continue current medications and tx plan. 02/06/2023: Increase Lithobid from 600mg BID to 600mg qAM and 900mg HS. 02/05/2023: Continue current medications and tx plan. 02/04/2023: Consider SSRI trial once [place] records can be reviewed and once he becomes willing to consider medication adjustments. 02/03/23: The patient is not willing to discuss medication changes and will not accept Ativan or Haldol prns at this time. Records from [place] pending. 02/02/23: The patient was admitted to the [facility] ([facility] mental health unit) on q15 min checks (behavioral with suicide precautions) for safety. The p atient will participate in group, recreational, and milieu therapies and will be offered additional individual and family sessions as clinically appropriate. Will check orthostatics and hold am clozaril with plan to shift dosing more toward hs. [place] level in am, does not appear toxic but his level was not a true trough. Inventory Assets Strengths: cooperative at [facility], help seeking Needs: improve coping, improve insight into condition Suicide Risk Level Suicide Risk Level: High-Moderate (q15 min suicide checks) (depression, psychosis and intermittent SI but feels safe in the hospital and feels comfortable letting nurses know if he feels unable to remain safe or requires additional support) Risk Factors Assessment Male: Yes : Yes Do You Have Access To A Gun?: No Mental Health Diagnoses: Yes Previous Psychiatric Hospitalization: Yes Protective Factors Assessment Employed: No Supportive Family: Yes Interval History Identifying Information NASEEM MCGEE is a 27-year-old M, resident of [facility], has a history of schizoaffective disorder and multiple hospitalizations (including [facility]), and was admitted on 02/02/23 08:59 on a 201 voluntary commitment for SI in the context of increase in paranoid delusions. Chief Complaint "I'm better". Review of Systems Sleep Information Total Hours of Sleep: 6.5 Meal Information Percent Meal Consumed - Breakfast: 0 Percent Meal Consumed - Lunch: 100 Percent Meal Consumed - Dinner: 100 Nutrition Comment: pt. had a few bites and is agreeable to power kayla Subjective Subjective Patient was seen & assessed and interval progress reviewed in a multidisciplinary team meeting with the treatment team. For details, see the "Impression" section below. Physical Exam Psychiatric Orientation: alert, oriented to person, oriented to place, oriented to time and + guarded Apperance: appropriately dressed and appropriately groomed Eye Contact: good eye contact Motor Behavior: no abnormal motor movements and + tremor (hands) Speech: normal rate/rhythm/volume of speech Affect: + constricted affect Mood: + dysphoric mood Thought Process: + concrete thought process Thought Content: + paranoid and + delusions Suicidal Thoughts: denies suicidal thoughts, denies suicidal plan and denies suicidal intent Homicidal Thoughts: denies homicidal thoughts Hallucinations: + auditory hallucinations; no visual hallucinations Cognition: language grossly intact; + attention not intact Insight: + limited insight Judgment: + limited judgement Vital Signs (Past 24 Hours) Last Vital Signs Temp 36.6 C 02/16/23 06:36 Pulse 102 H 02/16/23 06:37 Resp 16 02/16/23 06:36 BP 82/51 L 02/16/23 06:37 Pulse Ox 98 02/09/23 06:00 O2 Del Method Room Air 02/09/23 06:00 Results & Data ([facility]) Current Inpatient Medications Current Inpatient Medications: Current Inpatient Medications Acetaminophen (Acetaminophen 325 Mg Tab) 650 mg PO Q4H PRN PRN Reason: Headache or Minor Fever Stop: 03/04/23 08:58 Al Hydrox/Mg Hydrox/Simethicone (Aluminum/Magnesium Susp 30 Ml Udc) 30 ml PO Q4H PRN PRN Reason: GI Upset Stop: 03/04/23 08:58 Benztropine Mesylate (Benztropine Mesylate 1 Mg Tab) 1 mg PO Q6 PRN PRN Reason: Muscle Spasm Stop: 03/04/23 15:28 Last Admin: 02/11/23 22:58 Dose: 1 mg Bismuth Subsalicylate (Bismuth Subsalicylate Liqd 236 Ml) 15 ml PO PRN PRN PRN Reason: Loose Stool Stop: 03/04/23 08:58 Citalopram Hydrobromide (Citalopram 20 Mg Tab) 20 mg PO QAM VIVIAN Stop: 03/14/23 14:44 Last Admin: 02/16/23 09:15 Dose: 20 mg Clozapine (Clozapine 100 Mg Tab) 250 mg PO HS VIVIAN Stop: 03/14/23 21:59 Last Admin: 02/15/23 21:10 Dose: 250 mg Clozapine (Clozapine 100 Mg Tab) 100 mg PO DAILY VIVIAN Stop: 03/14/23 13:29 Last Admin: 02/16/23 09:14 Dose: 100 mg Docusate Sodium (Docusate Sodium 100 Mg Cap) 250 mg PO DAILY PRN PRN Reason: Constipation Stop: 03/13/23 08:59 Haloperidol (Haloperidol 5 Mg Tab) 5 mg PO Q4 PRN PRN Reason: Agitation Stop: 03/04/23 15:28 [place] Carbonate ([place] Carbonate Slow Rel 300 Mg Tab) 600 mg PO QAM VIVIAN Stop: 03/09/23 08:59 Last Admin: 02/16/23 09:15 Dose: 600 mg [place] Carbonate ([place] Carbonate 450 Mg Tabcr) 900 mg PO HS VIVIAN Stop: 03/08/23 21:59 Last Admin: 02/15/23 21:11 Dose: 900 mg Lorazepam (Lorazepam 1 Mg Tab) 1 mg PO Q6 PRN PRN Reason: Anxiety/Agitation Stop: 03/04/23 15:28 Last Admin: 02/11/23 22:58 Dose: 1 mg Magnesium Hydroxide (Magnesium Hydroxide Susp 30 Ml Udc) 30 ml PO DAILY PRN PRN Reason: Constipation Stop: 03/04/23 08:58 Polyethylene Glycol (Polyethylene (Miralax) 17 Gm Pack) 17 gm PO DAILY PRN PRN Reason: Constipation 1st choice Stop: 03/12/23 16:17 Sodium Chloride (Sodium Chloride 0.65% Na Soln 45 Ml ([place])) 1 - 2 sprays NA PRN PRN PRN Reason: Nasal Dryness/Congestion Stop: 03/04/23 08:58 Mental Health & Subst Abuse Tx Psychiatrist Name of Psychiatrist: Kody Rogers Psychiatrist's Date Of Appointment With Psychiatric Provider: 03/01/23 Time of Appointment with Psychiatrist: 1 PM Psychiatric Appointment Comment: [address], [place] [address] Therapist Name of Therapist: Cheko Zamarripa Therapist's Date of Therapist Appointment: 02/28/23 Time of Therapist Appointment: 1 PM Therapy Appointment Comment: [address], [address], [place] [address] Bird Sitter Name of Bird Sitter: Rose @ [facility] Phone Number for Bird Sitter: [phone] Case Management Appointment Comment: Please resume your normal schedule. Post Discharge Appointments Primary Care Physician Name Of Family Doctor/PCP: Kody Dunn Primary Care Provider Appointment Comment: [address], [place] [address]
[2023-02-16] MEDS: LITHIUM CARBONATE 450 MG TABCR PO SCH (21:12)
[2023-02-17] MEDS: CITALOPRAM 20 MG TAB PO SCH (09:11)
[2023-02-17] MEDS: cloZAPine 100 MG TAB PO SCH ×2 (09:12→20:47)
[2023-02-17] MEDS: LITHIUM CARBONATE SLOW REL 300 MG TAB PO SCH (09:12)
--- NOTE | 2023-02-17 13:01 | Psychiatric Progress Note ---
Date of Service February 17, 2023 Impression / Recommendations Impression 27 yo man with history of schizoaffective disorder, who resides in a local personal shelter due to severe persistent degree of symptoms, has been hospitalized several times following state hospital stay, currently suicidal with plan to jump into traffic due to dizziness and worsening of his baseline paranoid delusions. Diagnostically consistent with acute exacerbation of schizoaffective disorder as well as likely major depressive episode. MNPR due to psychosis severity, paranoia, HI 02/17/2023: Pt has reported substantial improvement on rating scales, last night saying mood was 9/10 vs 1/10 the previous day. Tells me he's "not feeling suicidal any more". Spends much of his time walking the halls and listening to music, but he has attended and participated in groups. Postural blood pressure drops have been seen first thing in the morning, but when checked later in the day only minimal change in BP or HR is seen. 02/16/2023: Substantial improvement is seen. Starting yesterday evening, pt began reporting that his mood is better. He stopped spending all his time in bed and resumed his usual activity of walking the halls while listening to music on headphones. Today, pt spontaneously stopped walking, removed his headphones, and told me "I've been feeling better". He says he's stopped having suicidal thoughts. He still feels "a little dizzy" when he first gets up in the morning but as soon as he starts walking around this stops. Postural blood pressure change this afternoon is minimal. Labs (CBC, CMP) ordered yesterday show no significant abnormalities. 02/15/2023: Postural hypotensive episodes continue, with systolic pressures as low as 80 mmHg (compared to supine diastolic of 79 mmHg). Pt has been speaking of not eating "because there's no point", and it's not entirely clear whether his fluid intake has been adequate. Treatment team discussed options. Since he's back on clozapine dose at which he previously had a therapeutic level, has a recent therapeutic lithium level at the current dose, and has recently started SSRI, consideration was given to the possibility of ECT. Will seek to obtain history from family about whether pt has had ECT in the past. We may be forced to reduce clozapine dose if postural hypotension continues. Well obtain CBC, CMP to monitor for evidence of metabolic or other changes. 02/14/2023: Incremental improvement seen in that pt is a little less abrupt. He has provided requested releases as of last night. Having some episodes of hypotension, though these are infrequent and do not appear postural. This is one of the more common side effects with clozapine, but it's unclear why this hasn't been seen previously. 02/13/2023: Remains irritable, avoidant and continues to pace. He is fairly uncooperative; for example, he's rescinded all releases of information, including for where he resides. Explains this is because he's suicidal and, in the case of his shelter, he's "upset with them". Has tolerated resumption of previous clozapine dose of 350 mg/day in divided doses. Blood pressure has been more stable without postural drops. Has also tolerated start of citalopram 20 mg daily and scheduled lorazepam 0.5 mg TID without evidence of adverse effects, including sedation. Not much change is noted in pt's anxiety. 02/12/2023: Li level was 0.9 mmol/L, nearly ideal and strongly supporting that current lithium dose is appropriate. Remains withdrawn, avoidant, irritable. Continues to pace while listening to music and is somewhat difficult to redirect from this in order to converse. Irritability appears to have increased since increase of HS clozapine and discontinuation of AM dose (so he's now taking 50 mg/day less but all in a single dose). He has significant postural blood pressure drop with heart rate increase. 02/11/2023: Pt has been withdrawn, avoidant. Spending most of his time in bed when he's not pacing the bernard listening to music. On approach, pt presents as somewhat sullen and much less interested in talking that during the 2 previous admissions during which I've seen him. While I'm speaking with him, get retrieves breakfast from the cart, sits, and starts munching toast while glaring at me. A short while later, he abruptly got up and returned to his room. I asked pt about a fine hand tremor I noted, but he denied having this. He appears to have tolerated increase in clozapine. I've reviewed the outside records that have been obtained from [place]. 02/10/2023: Ongoing intermittent SI and ongoing depression, seems less dizzy today even after increase of clozapine. Orthostatic vital signs remained stable even with increase of clozapine. Remains at high risk of self-harm given how abruptly and intensely his SI comes on. (1) Schizoaffective disorder, bipolar type: Plan 02/17/2023: * continue clozapine 100 mg QAM & 250 mg QHS * continue lithium 600 mg QAM & 900 mg QHS * continue citalopram 20 mg daily. * continue lorazepam 1 mg Q6 Hr PRN * A private room remains medically necessary for the safety of self and others due to pt's restlessness and paranoia 02/16/2023: * continue clozapine 100 mg QAM & 250 mg QHS * continue lithium 600 mg QAM & 900 mg QHS * continue citalopram 20 mg daily. * continue lorazepam 1 mg Q6 Hr PRN * A private room remains medically necessary for the safety of self and others due to pt's restlessness and paranoia 02/15/2023: * Labs today: CBC with differential, CMP * Monitor fluid intake * continue clozapine 100 mg QAM & 250 mg QHS * continue lithium 600 mg QAM & 900 mg QHS * continue citalopram 20 mg daily. * continue lorazepam 1 mg Q6 Hr PRN * A private room remains medically necessary for the safety of self and others due to pt's significant irritability 02/14/2023: * continue clozapine 100 mg QAM & 250 mg QHS * continue citalopram 20 mg daily. * stop lorazepam 0.5 mg TID due to refusal of scheduled doses * continue lorazepam 1 mg Q6 Hr PRN * continue lithium 600 mg QAM & 900 mg QHS * A private room remains medically necessary for the safety of self and others due to pt's significant irritability 02/13/2023: * continue clozapine 100 mg QAM & 250 mg QHS * continue citalopram 20 mg daily. * continue scheduled lorazepam 0.5 mg TID; consider further titration as tolerated * continue lithium 600 mg QAM & 900 mg QHS * A private room remains medically necessary for the safety of self and others due to pt's significant irritability 02/12/2023: * Revert clozapine back to previous dose (at which therapeutic blood level was established) of 100 mg QAM & 250 mg QHS * Start trial of citalopram 10 mg daily, titrate rapidly to 20 mg daily. * Start scheduled lorazepam 0.5 mg TID * Continue lithium 600 mg QAM & 900 mg QHS given lithium level this AM of 0.9 mmol/L * A private room remains medically necessary for the safety of self and others due to pt's significant irritability : * Continue clozapine 300 mg QHS * Continue lithium 600 mg QAM & 900 mg QHS * Ladora level in AM (too late to obtain trough level today) * A private room remains medically necessary for the safety of self and others due to pt's significant irritability 02/10/2023: Continue current medications and tx plan. 02/09/2023: Increase clozapine to 300mg HS. 02/08/2023: Continue current medications and tx plan. Recheck Li level on 02/11/2023. 02/07/2023: Continue current medications and tx plan. 02/06/2023: Increase Lithobid from 600mg BID to 600mg qAM and 900mg HS. 02/05/2023: Continue current medications and tx plan. 02/04/2023: Consider SSRI trial once [place] records can be reviewed and once he becomes willing to consider medication adjustments. 02/03/23: The patient is not willing to discuss medication changes and will not accept Ativan or Haldol prns at this time. Records from [place] pending. 02/02/23: The patient was admitted to the [facility] ([facility] mental health unit) on q15 min checks (behavioral with suicide precautions) for safety. The patient will participate in group, recreational, and milieu therapies and will be offered additional individual and family sessions as clinically appropriate. Will check orthostatics and hold am clozaril with plan to shift dosing more toward hs. Ladora level in am, does not appear toxic but his level was not a true trough. Inventory Assets Strengths: cooperative at [facility], help seeking Needs: improve coping, improve insight into condition Suicide Risk Level Suicide Risk Level: High-Moderate (q15 min suicide checks) (depression, psychosis and intermittent SI but feels safe in the hospital and feels comfortable letting nurses know if he feels unable to remain safe or requires additional support) Risk Factors Assessment Male: Yes : Yes Do You Have Access To A Gun?: No Mental Health Diagnoses: Yes Previous Psychiatric Hospitalization: Yes Protective Factors Assessment Employed: No Supportive Family: Yes Interval History Identifying Information NASEEM MCGEE is a 27-year-old M, resident of [facility], has a history of schizoaffective disorder and multiple hospitalizations (including [facility]), and was admitted on 02/02/23 08:59 on a 201 voluntary commitment for SI in the context of increase in paranoid delusions. Chief Complaint "I'm still doing better. Not suicidal". Review of Systems Sleep Information Total Hours of Sleep: 6.5 Meal Information Percent Meal Consumed - Breakfast: 50 Percent Meal Consumed - Lunch: 100 Percent Meal Consumed - Dinner: 100 Subjective Subjective Patient was seen & assessed and interval progress reviewed in a multidisciplinary team meeting with the treatment team. For details, see the "Impression" section below. Physical Exam Psychiatric Orientation: alert, oriented to person, oriented to place, oriented to time and cooperative Apperance: appropriately dressed and appropriately groomed Eye Contact: good eye contact Motor Behavior: no abnormal motor movements Speech: normal rate/rhythm/volume of speech Affect: + constricted affect Mood: + dysphoric mood Thought Process: + concrete thought process Thought Content: + delusions Suicidal Thoughts: denies suicidal thoughts, denies suicidal plan and denies suicidal intent Homicidal Thoughts: denies homicidal thoughts Hallucinations: + auditory hallucinations; no visual hallucinations Cognition: language grossly intact; + attention not intact Insight: + limited insight Judgment: + limited judgement Vital Signs (Past 24 Hours) Last Vital Signs Temp 36.9 C 02/17/23 06:41 Pulse 102 H 02/16/23 06:37 Resp 16 02/17/23 06:41 BP 82/51 L 02/16/23 06:37 Pulse Ox 98 02/09/23 06:00 O2 Del Method Room Air 02/09/23 06:00 Results & Data ([facility]) Current Inpatient Medications Current Inpatient Medications: Current Inpatient Medications Acetaminophen (Acetaminophen 325 Mg Tab) 650 mg PO Q4H PRN PRN Reason: Headache or Minor Fever Stop: 03/04/23 08:58 Al Hydrox/Mg Hydrox/Simethicone (Aluminum/Magnesium Susp 30 Ml Udc) 30 ml PO Q4H PRN PRN Reason: GI Upset Stop: 03/04/23 08:58 Benztropine Mesylate (Benztropine Mesylate 1 Mg Tab) 1 mg PO Q6 PRN PRN Reason: Muscle Spasm Stop: 03/04/23 15:28 Last Admin: 02/11/23 22:58 Dose: 1 mg Bismuth Subsalicylate (Bismuth Subsalicylate Liqd 236 Ml) 15 ml PO PRN PRN PRN Reason: Loose Stool Stop: 03/04/23 08:58 Citalopram Hydrobromide (Citalopram 20 Mg Tab) [facility] [place]: 03/14/23 14:44 Last Admin: 02/17/23 09:11 Dose: 20 mg Clozapine (Clozapine 100 Mg Tab) 250 mg PO [facility] Stop: 03/14/23 21:59 Last Admin: 02/16/23 21:12 Dose: 250 mg Clozapine (Clozapine 100 Mg Tab) 100 mg PO DAILY [facility] Stop: 03/14/23 13:29 Last Admin: 02/17/23 09:12 Dose: 100 mg Docusate Sodium (Docusate Sodium 100 Mg Cap) 250 mg PO DAILY PRN PRN Reason: Constipation Stop: 03/13/23 08:59 Haloperidol (Haloperidol 5 Mg Tab) 5 mg PO Q4 PRN PRN Reason: Agitation Stop: 03/04/23 15:28 Ladora Carbonate (Ladora Carbonate Slow Rel 300 Mg Tab) 600 mg PO [facility] Stop: 03/09/23 08:59 Last Admin: 02/17/23 09:12 Dose: 600 mg Ladora Carbonate (Ladora Carbonate 450 Mg Tabcr) 900 mg PO [facility] Stop: 03/08/23 21:59 Last Admin: 02/16/23 21:12 Dose: 900 mg Lorazepam (Lorazepam 1 Mg Tab) 1 mg PO Q6 PRN PRN Reason: Anxiety/Agitation Stop: 03/04/23 15:28 Last Admin: 02/11/23 22:58 Dose: 1 mg Magnesium Hydroxide (Magnesium Hydroxide Susp 30 Ml Udc) 30 ml PO DAILY PRN PRN Reason: Constipation Stop: 03/04/23 08:58 Polyethylene Glycol (Polyethylene (Miralax) 17 Gm Pack) 17 gm PO DAILY PRN PRN Reason: Constipation 1st choice Stop: 03/12/23 16:17 Sodium Chloride (Sodium Chloride 0.65% Na Soln 45 Ml ([place])) 1 - 2 sprays NA PRN PRN PRN Reason: Nasal Dryness/Congestion Stop: 03/04/23 08:58 Mental Health & Subst Abuse Tx Psychiatrist Name of Psychiatrist: Kody Rogers Psychiatrist's Date Of Appointment With Psychiatric Provider: 03/01/23 Time of Appointment with Psychiatrist: 1 PM Psychiatric Appointment Comment: [address], [place] [address] Therapist Name of Therapist: Cheko Zamarripa Therapist's Date of Therapist Appointment: 02/28/23 Time of Therapist Appointment: 1 PM Therapy Appointment Comment: [address], [address], [place] [address] Forest Products Gatherer Name of Forest Products Gatherer: Rose @ [place] [employer] [facility] Phone Number for Forest Products Gatherer: [phone] Case Management Appointment Comment: Please resume your normal schedule. Post Discharge Appointments Primary Care Physician Name Of Family Doctor/PCP: Kody Dunn Primary Care Provider Appointment Comment: [address], [place] [address]
[2023-02-17] MEDS: LITHIUM CARBONATE 450 MG TABCR PO SCH (20:47)
[2023-02-18] MEDS: cloZAPine 100 MG TAB PO SCH ×2 (08:55→20:51)
[2023-02-18] MEDS: CITALOPRAM 20 MG TAB PO SCH (08:55)
[2023-02-18] MEDS: LITHIUM CARBONATE SLOW REL 300 MG TAB PO SCH (08:56)
--- NOTE | 2023-02-18 11:26 | Psychiatric Progress Note ---
Date of Service February 18, 2023 Impression / Recommendations Impression 27 yo man with history of schizoaffective disorder, who resides in a local personal halfway due to severe persistent degree of symptoms, has been hospitalized several times following state hospital stay, currently suicidal with plan to jump into traffic due to dizziness and worsening of his baseline paranoid delusions. Diagnostically consistent with acute exacerbation of schizoaffective disorder as well as likely major depressive episode. MNPR due to psychosis severity, paranoia, HI 02/18/2023: Reviewed interim progress per Dr. Thorne's notes. Today affect remains flat but denying SI. Seems to be starting to show some signs of gradual improvement, given history of dramatic/abrupt changes in mood and risk profile we'll continue to monitor closely for signs of ongoing improvement and mood stability. Tolerating higher dose of clozapine as well as lithium and citalopram. (1) Schizoaffective disorder, bipolar type: Plan 02/18/2023: Continue current medications and tx plan. 02/17/2023: * continue clozapine 100 mg QAM & 250 mg QHS * continue lithium 600 mg QAM & 900 mg QHS * continue citalopram 20 mg daily. * continue lorazepam 1 mg Q6 Hr PRN * A private room remains medically necessary for the safety of self and others due to pt's restlessness and paranoia 02/16/2023: * continue clozapine 100 mg QAM & 250 mg QHS * continue lithium 600 mg QAM & 900 mg QHS * continue citalopram 20 mg daily. * continue lorazepam 1 mg Q6 Hr PRN * A private room remains medically necessary for the safety of self and others due to pt's restlessness and paranoia 02/15/2023: * Labs today: CBC with differential, CMP * Monitor fluid intake * continue clozapine 100 mg QAM & 250 mg QHS * continue lithium 600 mg QAM & 900 mg QHS * continue citalopram 20 mg daily. * continue lorazepam 1 mg Q6 Hr PRN * A private room remains medically necessary for the safety of self and others due to pt's significant irritability 02/14/2023: * continue clozapine 100 mg QAM & 250 mg QHS * continue citalopram 20 mg daily. * stop lorazepam 0.5 mg TID due to refusal of scheduled doses * continue lorazepam 1 mg Q6 Hr PRN * continue lithium 600 mg QAM & 900 mg QHS * A private room remains medically necessary for the safety of self and others due to pt's significant irritability 02/13/2023: * continue clozapine 100 mg QAM & 250 mg QHS * continue citalopram 20 mg daily. * continue scheduled lorazepam 0.5 mg TID; consider further titration as tolerated * continue lithium 600 mg QAM & 900 mg QHS * A private room remains medically necessary for the safety of self and others due to pt's significant irritability 02/12/2023: * Revert clozapine back to previous dose (at which therapeutic blood level was established) of 100 mg QAM & 250 mg QHS * Start trial of citalopram 10 mg daily, titrate rapidly to 20 mg daily. * Start scheduled lorazepam 0.5 mg TID * Continue lithium 600 mg QAM & 900 mg QHS given lithium level this AM of 0.9 mmol/L * A private room remains medically necessary for the safety of self and others due to pt's significant irritability : * Continue clozapine 300 mg QHS * Continue lithium 600 mg QAM & 900 mg QHS * Alanson level in AM (too late to obtain trough level today) * A private room remains medically necessary for the safety of self and others due to pt's significant irritability 02/10/2023: Continue current medications and tx plan. 02/09/2023: Increase clozapine to 300mg HS. 02/08/2023: Continue current medications and tx plan. Recheck Li level on 02/11/2023. 02/07/2023: Continue current medications and tx plan. 02/06/2023: Increase Lithobid from 600mg BID to 600mg qAM and 900mg HS. 02/05/2023: Continue current medications and tx plan. 02/04/2023: Consider SSRI trial once [facility] records can be reviewed and once he becomes willing to consider medication adjustments. 02/03/23: The patient is not willing to discuss medication changes and will not accept Ativan or Haldol prns at this time. Records from [facility] pending. 02/02/23: The patient was admitted to the [facility] ([facility] mental [facility] unit) on q15 min checks (behavioral with suicide precautions) for safety. The patient will participate in group, recreational, and milieu therapies and will be offered additional individual and family sessions as clinically appropriate. Will check orthostatics and hold am clozaril with plan to shift dosing more toward hs. Alanson level in am, does not appear toxic but his level was not a true trough. Inventory Assets Strengths: cooperative at [facility], help seeking Needs: improve coping, improve insight into condition Suicide Risk Level Suicide Risk Level: High-Moderate (q15 min suicide checks) (depression, psychosis and intermittent SI but feels safe in the hospital and feels comfortable letting nurses know if he feels unable to remain safe or requires additional support) Risk Factors Assessment Male: Yes : Yes Do You Have Access To A Gun?: No Mental Health Diagnoses: Yes Previous Psychiatric Hospitalization: Yes Protective Factors Assessment Employed: No Supportive Family: Yes Interval History Identifying Information NASEEM MCGEE is a 27-year-old M, resident of [facility], has a history of schizoaffective disorder and multiple hospitalizations (including [facility]), and was admitted on 02/02/23 08:59 on a 201 voluntary commitment for SI in the context of increase in paranoid delusions. Chief Complaint "I'm a little sleepy". Review of Systems Sleep Information Total Hours of Sleep: 7.5 Meal Information Percent Meal Consumed - Breakfast: 50 Percent Meal Consumed - Lunch: 75 Percent Meal Consumed - Dinner: 100 Nutrition Comment: Subjective Subjective Patient was seen & assessed and interval progress reviewed with treatment team nursing and social work. Coming out of his room more, was more social last evening. Today walking in the halls and then mid-morning lying in bed. Thinks the clozapine is causing a little bit of morning fatigue but he feels this is tolerable. Still with some mild dizziness but denies that this is preventing him from walking or getting out of bed and no worse than previous symptoms. Denies SI today, likes the recent medication adjustments. Physical Exam Psychiatric Orientation: alert and oriented x 3 Apperance: appropriately dressed and appropriately groomed Eye Contact: + fair eye contact Motor Behavior: no abnormal motor movements Speech: normal rate/rhythm/volume of speech Affect: + flat affect Mood: + depressed mood Thought Process: + concrete thought process Thought Content: + delusions Suicidal Thoughts: denies suicidal thoughts, denies suicidal plan and denies suicidal intent Homicidal Thoughts: denies homicidal thoughts Hallucinations: + auditory hallucinations; no visual hallucinations Cognition: language grossly intact; + attention not intact Insight: + limited insight Judgment: + limited judgement Vital Signs (Past 24 Hours) Last Vital Signs Temp 36.6 C 02/18/23 06:00 Pulse 82 02/18/23 06:00 Resp 18 02/18/23 06:00 BP 99/61 L 02/18/23 06:43 Pulse Ox 97 02/18/23 06:00 O2 Del Method Room Air 02/18/23 06:00 Results & Data ([facility]) Current Inpatient Medications Current Inpatient Medications: Current Inpatient Medications Acetaminophen (Acetaminophen 325 Mg Tab) 650 mg PO Q4H PRN PRN Reason: Headache or Minor Fever Stop: 03/04/23 08:58 Al Hydrox/Mg Hydrox/Simethicone (Aluminum/Magnesium Susp 30 Ml Udc) 30 ml PO Q4H PRN PRN Reason: GI Upset Stop: 03/04/23 08:58 Benztropine Mesylate (Benztropine Mesylate 1 Mg Tab) 1 mg PO Q6 PRN PRN Reason: Muscle Spasm Stop: 03/04/23 15:28 Last Admin: 02/11/23 22:58 Dose: 1 mg Bismuth Subsalicylate (Bismuth Subsalicylate Liqd 236 Ml) 15 ml PO PRN PRN PRN Reason: Loose Stool Stop: 03/04/23 08:58 Citalopram Hydrobromide (Citalopram 20 Mg Tab) 20 mg PO QAM [facility] Stop: 03/14/23 14:44 Last Admin: 02/18/23 08:55 Dose: 20 mg Clozapine (Clozapine 100 Mg Tab) 250 mg PO HS [facility] Stop: 03/14/23 21:59 Last Admin: 02/17/23 20:47 Dose: 250 mg Clozapine (Clozapine 100 Mg Tab) 100 mg PO DAILY [facility] Stop: 03/14/23 13:29 Last Admin: 02/18/23 08:55 Dose: 100 mg Docusate Sodium (Docusate Sodium 100 Mg Cap) 250 mg PO DAILY PRN PRN Reason: Constipation Stop: 03/13/23 08:59 Haloperidol (Haloperidol 5 Mg Tab) 5 mg PO Q4 PRN PRN Reason: Agitation Stop: 03/04/23 15:28 Alanson Carbonate (Alanson Carbonate Slow Rel 300 Mg Tab) 600 mg PO QAM [facility] Stop: 03/09/23 08:59 Last Admin: 02/18/23 08:56 Dose: 600 mg Alanson Carbonate (Alanson Carbonate 450 Mg Tabcr) 900 mg PO HS [facility] Stop: 03/08/23 21:59 Last Admin: 02/17/23 20:47 Dose: 900 mg Lorazepam (Lorazepam 1 Mg Tab) 1 mg PO Q6 PRN PRN Reason: Anxiety/Agitation Stop: 03/04/23 15:28 Last Admin: 02/11/23 22:58 Dose: 1 mg Magnesium Hydroxide (Magnesium Hydroxide Susp 30 Ml Udc) 30 ml PO DAILY PRN PRN Reason: Constipation Stop: 03/04/23 08:58 Polyethylene Glycol (Polyethylene (Miralax) 17 Gm Pack) 17 gm PO DAILY PRN PRN Reason: Constipation 1st choice Stop: 03/12/23 16:17 Sodium Chloride (Sodium Chloride 0.65% Na Soln 45 Ml ([place])) 1 - 2 sprays NA PRN PRN PRN Reason: Nasal Dryness/Congestion Stop: 03/04/23 08:58 Mental Health & Subst Abuse Tx Psychiatrist Name of Psychiatrist: Kody Rogers Psychiatrist's Date Of Appointment With Psychiatric Provider: 03/01/23 Time of Appointment with Psychiatrist: 1 PM Psychiatric Appointment Comment: [address], [place] [address] Therapist Name of Therapist: Cheko Zamarripa Therapist's Date of Therapist Appointment: 02/28/23 Time of Therapist Appointment: 1 PM Therapy Appointment Comment: [address], [address], [place] [address] Firmware Developer Name of Firmware Developer: Rose @ [place] [employer] [facility] Phone Number for Firmware Developer: [phone] Case Management Appointment Comment: Please resume your normal schedule. Post Discharge Appointments Primary Care Physician Name Of Family Doctor/PCP: Kody Dunn Primary Care Provider Appointment Comment: [address], [place] [address]
[2023-02-18] MEDS: LITHIUM CARBONATE 450 MG TABCR PO SCH (20:52)
[2023-02-19] MEDS: CITALOPRAM 20 MG TAB PO SCH (08:39)
[2023-02-19] MEDS: LITHIUM CARBONATE SLOW REL 300 MG TAB PO SCH (08:40)
[2023-02-19] MEDS: cloZAPine 100 MG TAB PO SCH ×2 (08:40→21:27)
--- NOTE | 2023-02-19 08:54 | Psychiatric Progress Note ---
Date of Service February 19, 2023 Impression / Recommendations Impression 27 yo man with history of schizoaffective disorder, who resides in a local personal fpc due to severe persistent degree of symptoms, has been hospitalized several times following state hospital stay, currently suicidal with plan to jump into traffic due to dizziness and worsening of his baseline paranoid delusions. Diagnostically consistent with acute exacerbation of schizoaffective disorder as well as likely major depressive episode. MNPR due to psychosis, paranoia, periods of past HI 02/19/2023:Mood continuing to show gradual signs of improvement, denies SI today but still social isolated during most of the day and responding to internal stimuli. No dizziness or medication side effects today, seems to be tolerating higher and split dosing of clozapine well. Sleep remains stable, no evidence for hypomania with addition of citalopram. (1) Schizoaffective disorder, bipolar type: Plan 02/19/2023: Continue current medications and tx plan. 02/18/2023: Continue current medications and tx plan. 02/17/2023: * continue clozapine 100 mg QAM & 250 mg QHS * continue lithium 600 mg QAM & 900 mg QHS * continue citalopram 20 mg daily. * continue lorazepam 1 mg Q6 Hr PRN * A private room remains medically necessary for the safety of self and others due to pt's restlessness and paranoia 02/16/2023: * continue clozapine 100 mg QAM & 250 mg QHS * continue lithium 600 mg QAM & 900 mg QHS * continue citalopram 20 mg daily. * continue lorazepam 1 mg Q6 Hr PRN * A private room remains medically necessary for the safety of self and others due to pt's restlessness and paranoia 02/15/2023: * Labs today: CBC with differential, CMP * Monitor fluid intake * continue clozapine 100 mg QAM & 250 mg QHS * continue lithium 600 mg QAM & 900 mg QHS * continue citalopram 20 mg daily. * continue lorazepam 1 mg Q6 Hr PRN * A private room remains medically necessary for the safety of self and others due to pt's significant irritability 02/14/2023: * continue clozapine 100 mg QAM & 250 mg QHS * continue citalopram 20 mg daily. * stop lorazepam 0.5 mg TID due to refusal of scheduled doses * continue lorazepam 1 mg Q6 Hr PRN * continue lithium 600 mg QAM & 900 mg QHS * A private room remains medically necessary for the safety of self and others due to pt's significant irritability 02/13/2023: * continue clozapine 100 mg QAM & 250 mg QHS * continue citalopram 20 mg daily. * continue scheduled lorazepam 0.5 mg TID; consider further titration as tolerated * continue lithium 600 mg QAM & 900 mg QHS * A private room remains medically necessary for the safety of self and others due to pt's significant irritability 02/12/2023: * Revert clozapine back to previous dose (at which therapeutic blood level was established) of 100 mg QAM & 250 mg QHS * Start trial of citalopram 10 mg daily, titrate rapidly to 20 mg daily. * Start scheduled lorazepam 0.5 mg TID * Continue lithium 600 mg QAM & 900 mg QHS given lithium level this AM of 0.9 mmol/L * A private room remains medically necessary for the safety of self and others due to pt's significant irritability : * Continue clozapine 300 mg QHS * Continue lithium 600 mg QAM & 900 mg QHS * [place] level in AM (too late to obtain trough level today) * A private room remains medically necessary for the safety of self and others due to pt's significant irritability 02/10/2023: Continue current medications and tx plan. 02/09/2023: Increase clozapine to 300mg HS. 02/08/2023: Continue current medications and tx plan. Recheck Li level on 02/11/2023. 02/07/2023: Continue current medications and tx plan. 02/06/2023: Increase Lithobid from 600mg BID to 600mg qAM and 900mg HS. 02/05/2023: Continue current medications and tx plan. 02/04/2023: Consider SSRI trial once [place] records can be reviewed and once he becomes willing to consider medication adjustments. 02/03/23: The patient is not willing to discuss medication changes and will not accept Ativan or Haldol prns at this time. Records from [place] pending. 02/02/23: The patient was admitted to the [facility] ([facility] mental health unit) on q15 min checks (behavioral with suicide precautions) for safety. The patient will participate in group, recreational, and milieu therapies and will be offered additional individual and family sessions as clinically appropriate. Will check orthostatics and hold am clozaril with plan to shift dosing more toward hs. [place] level in am, does not appear toxic but his level was not a true trough. Inventory Assets Strengths: cooperative at [facility], help seeking Needs: improve coping, improve insight into condition Suicide Risk Level Suicide Risk Level: High-Moderate (q15 min suicide checks) (depression, psychosis and intermittent SI but feels safe in the hospital and feels comfortable letting nurses know if he feels unable to remain safe or requires additional support) Risk Factors Assessment Male: Yes : Yes Do You Have Access To A Gun?: No Mental Health Diagnoses: Yes Previous Psychiatric Hospitalization: Yes Protective Factors Assessment Employed: No Supportive Family: Yes Interval History Identifying Information NASEEM MCGEE is a 27-year-old M, resident of [facility], has a history of schizoaffective disorder and multiple hospitalizations (including [facility]), and was admitted on 02/02/23 08:59 on a 201 voluntary commitment for SI in the context of increase in paranoid delusions. Chief Complaint "I feel a lot better". Review of Systems Sleep Information Total Hours of Sleep: 8 Meal Information Percent Meal Consumed - Breakfast: 50 Percent Meal Consumed - Lunch: 60 Percent Meal Consumed - Dinner: 60 Subjective Subjective Patient was seen & assessed and interval progress reviewed with treatment team nursing and social work. Still responding to internal stimuli but more consistently greeting [facility] staff in the hallways and appears brighter at times. Encourage shower today. Not attending groups except to community meeting. Seen laughing in response to internal stimuli while walking in the halls. Tells me his mood is " a lot better today" and has a goal for the day of "staying safe". Denies current SI. Denies medication side effects, he feels the medication adjustments are helping with his mood. Denies any excessive fatigue this morning stating he woke up before breakfast and has been out walking in the halls listening to music. Physical Exam Psychiatric Orientation: alert and oriented x 3 Apperance: appropriately dressed and appropriately groomed Eye Contact: + fair eye contact Motor Behavior: no abnormal motor movements Speech: normal rate/rhythm/volume of speech Affect: + constricted affect (brightening slightly at times) Mood: + depressed mood Thought Process: + concrete thought process Thought Content: + delusions Suicidal Thoughts: denies suicidal thoughts, denies suicidal plan and denies suicidal intent Homicidal Thoughts: denies homicidal thoughts Hallucinations: + auditory hallucinations; no visual hallucinations Cognition: language grossly intact; + attention not intact Insight: + limited insight Judgment: + limited judgement Vital Signs (Past 24 Hours) Last Vital Signs Temp 36.5 C 02/19/23 06:00 Pulse 82 02/19/23 06:00 Resp 18 02/19/23 06:00 BP 118/71 02/19/23 06:56 Pulse Ox 98 02/19/23 06:00 O2 Del Method Room Air 02/19/23 06:00 Results & Data ([facility]) Current Inpatient Medications Current Inpatient Medications: Current Inpatient Medications Acetaminophen (Acetaminophen 325 Mg Tab) 650 mg PO Q4H PRN PRN Reason: Headache or Minor Fever Stop: 03/04/23 08:58 Al Hydrox/Mg Hydrox/Simethicone (Aluminum/Magnesium Susp 30 Ml Udc) 30 ml PO Q4H PRN PRN Reason: GI Upset Stop: 03/04/23 08:58 Benztropine Mesylate (Benztropine Mesylate 1 Mg Tab) 1 mg PO Q6 PRN PRN Reason: Muscle Spasm Stop: 03/04/23 15:28 Last Admin: 02/11/23 22:58 Dose: 1 mg Bismuth Subsalicylate (Bismuth Subsalicylate Liqd 236 Ml) 15 ml PO PRN PRN PRN Reason: Loose Stool Stop: 03/04/23 08:58 Citalopram Hydrobromide (Citalopram 20 Mg Tab) 20 mg PO QAM VIVIAN Stop: 03/14/23 14:44 Last Admin: 02/19/23 08:39 Dose: 20 mg Clozapine (Clozapine 100 Mg Tab) 250 mg PO HS VIVIAN Stop: 03/14/23 21:59 Last Admin: 02/18/23 20:51 Dose: 250 mg Clozapine (Clozapine 100 Mg Tab) 100 mg PO DAILY VIVIAN Stop: 03/14/23 13:29 Last Admin: 02/19/23 08:40 Dose: 100 mg Docusate Sodium (Docusate Sodium 100 Mg Cap) 250 mg PO DAILY PRN PRN Reason: Constipation Stop: 03/13/23 08:59 Haloperidol (Haloperidol 5 Mg Tab) 5 mg PO Q4 PRN PRN Reason: Agitation Stop: 03/04/23 15:28 [place] Carbonate ([place] Carbonate Slow Rel 300 Mg Tab) 600 mg PO QAM VIVIAN Stop: 03/09/23 08:59 Last Admin: 02/19/23 08:40 Dose: 600 mg [place] Carbonate ([place] Carbonate 450 Mg Tabcr) 900 mg PO HS VIVIAN Stop: 03/08/23 21:59 Last Admin: 02/18/23 20:52 Dose: 900 mg Lorazepam (Lorazepam 1 Mg Tab) 1 mg PO Q6 PRN PRN Reason: Anxiety/Agitation Stop: 03/04/23 15:28 Last Admin: 02/11/23 22:58 Dose: 1 mg Magnesium Hydroxide (Magnesium Hydroxide Susp 30 Ml Udc) 30 ml PO DAILY PRN PRN Reason: Constipation Stop: 03/04/23 08:58 Polyethylene Glycol (Polyethylene (Miralax) 17 Gm Pack) 17 gm PO DAILY PRN PRN Reason: Constipation 1st choice Stop: 03/12/23 16:17 Sodium Chloride (Sodium Chloride 0.65% Na Soln 45 Ml ([place])) 1 - 2 sprays NA PRN PRN PRN Reason: Nasal Dryness/Congestion Stop: 03/04/23 08:58 Mental Health & Subst Abuse Tx Psychiatrist Name of Psychiatrist: Kody Rogers Psychiatrist's Date Of Appointment With Psychiatric Provider: 03/01/23 Time of Appointment with Psychiatrist: 1 PM Psychiatric Appointment Comment: [address], [place] [address] Therapist Name of Therapist: Cheko Zamarripa Therapist's Date of Therapist Appointment: 02/28/23 Time of Therapist Appointment: 1 PM Therapy Appointment Comment: [address], [address], [place] [address] Dental Laboratory Technician Apprentice Name of Dental Laboratory Technician Apprentice: Rose @ [facility] Phone Number for Dental Laboratory Technician Apprentice: [phone] Case Management Appointment Comment: Please resume your normal schedule. Post Discharge Appointments Primary Care Physician Name Of Family Doctor/PCP: Kody Dunn Primary Care Provider Appointment Comment: [address], [place] [address]
[2023-02-19] MEDS: LITHIUM CARBONATE 450 MG TABCR PO SCH (21:28)
[2023-02-20] MEDS: CITALOPRAM 20 MG TAB PO SCH (09:15)
[2023-02-20] MEDS: cloZAPine 100 MG TAB PO SCH ×2 (09:16→21:17)
[2023-02-20] MEDS: LITHIUM CARBONATE SLOW REL 300 MG TAB PO SCH (09:16)
[2023-02-20 09:24] LABS: Basophils # (auto) 0.09 K/uL (0-0.2); Basophils % (auto) 0.8 %; Eosinophils # (auto) 0.42 K/uL (0-0.50); Eosinophils % (auto) 3.7 %; Hematocrit (blood only) 47.3 % (42.0-52.0); Hemoglobin 15.6 g/dl (14.0-18.0); Immature Granulocytes % (auto) 1.8 %; Lymphocytes # (auto) 2.44 K/uL (1.2-3.4); Lymphocytes % (auto) 21.5 %; Mean Corpuscular Hemoglobin 27.4 pg (25.0-34.0); Mean Platelet Volume 9.9 fL (9.4-12.4); Monocytes # (auto) 0.98 K/uL (0.11-0.59); Monocytes % (auto) 8.6 %; Neutrophils # (auto) 7.21 K/uL (1.40-6.50); Neutrophils % (auto) 63.6 %; Platelet Count 321 K/uL (130-400); RDW Coefficient of Variation 13.8 % (11.5-14.5); RDW Standard Deviation 41.6 fL (36.4-46.3); White Blood Count 11.34 K/ul (4.8-10.8)
--- NOTE | 2023-02-20 11:10 | Psychiatric Progress Note ---
Date of Service February 20, 2023 Impression / Recommendations Impression 27 yo man with history of schizoaffective disorder, who resides in a local personal prison due to severe persistent degree of symptoms, has been hospitalized several times following state hospital stay, currently suicidal with plan to jump into traffic due to dizziness and worsening of his baseline paranoid delusions. Diagnostically consistent with acute exacerbation of schizoaffective disorder as well as likely major depressive episode. MNPR due to psychosis, paranoia, periods of past HI 02/20/2023:Subjectively he's continuing to report improvement in his mood and seems to have fewer somatic symptoms suggesting previous hypothesis that symptoms may have been partially due to somatic delusions and increased paranoia. Today certainly has evidence of morning orthostatic hypotension but he's been awake and walking and denies any dizziness, lightheadedness or other symptoms. Still responding to internal stimuli and fairly social isolated, declines most groups except community meeting, encouraged him to try to attend more groups which he is willing to consider. Given periods of rapid mood fluctuations with sudden intense SI over the last few weeks we'll continue to monitor closely to ensure his mood improvements are stable and that there is no re-emergence of SI. Sleeping well and not spending excessive time in bed as he was before. Labwork reviewed and reassuring given clozapine use, ANC stable. He is showing slight increase in WBC and neutrophil count compared to last week but denies any symptoms concerning for infection and he's been consistently afebrile but will continue to monitor. Last fasting lipid panel and HBA1c were within last three months and reviewed and normal. (1) Schizoaffective disorder, bipolar type: Plan 02/20/2023: Continue current medications and tx plan. Begin to explore disposition planning options. 02/19/2023: Continue current medications and tx plan. 02/18/2023: Continue current medications and tx plan. 02/17/2023: * continue clozapine 100 mg QAM & 250 mg QHS * continue lithium 600 mg QAM & 900 mg QHS * continue citalopram 20 mg daily. * continue lorazepam 1 mg Q6 Hr PRN * A private room remains medically necessary for the safety of self and others due to pt's restlessness and paranoia 02/16/2023: * continue clozapine 100 mg QAM & 250 mg QHS * continue lithium 600 mg QAM & 900 mg QHS * continue citalopram 20 mg daily. * continue lorazepam 1 mg Q6 Hr PRN * A private room remains medically necessary for the safety of self and others due to pt's restlessness and paranoia 02/15/2023: * Labs today: CBC with differential, CMP * Monitor fluid intake * continue clozapine 100 mg QAM & 250 mg QHS * continue lithium 600 mg QAM & 900 mg QHS * continue citalopram 20 mg daily. * continue lorazepam 1 mg Q6 Hr PRN * A private room remains medically necessary for the safety of self and others due to pt's significant irritability 02/14/2023: * continue clozapine 100 mg QAM & 250 mg QHS * continue citalopram 20 mg daily. * stop lorazepam 0.5 mg TID due to refusal of scheduled doses * continue lorazepam 1 mg Q6 Hr PRN * continue lithium 600 mg QAM & 900 mg QHS * A private room remains medically necessary for the safety of self and others due to pt's significant irritability 02/13/2023: * continue clozapine 100 mg QAM & 250 mg QHS * continue citalopram 20 mg daily. * continue scheduled lorazepam 0.5 mg TID; consider further titration as tolerated * continue lithium 600 mg QAM & 900 mg QHS * A private room remains medically necessary for the safety of self and others due to pt's significant irritability 02/12/2023: * Revert clozapine back to previous dose (at which therapeutic blood level was established) of 100 mg QAM & 250 mg QHS * Start trial of citalopram 10 mg daily, titrate rapidly to 20 mg daily. * Start scheduled lorazepam 0.5 mg TID * Continue lithium 600 mg QAM & 900 mg QHS given lithium level this AM of 0.9 mmol/L * A private room remains medically necessary for the safety of self and others due to pt's significant irritability : * Continue clozapine 300 mg QHS * Continue lithium 600 mg QAM & 900 mg QHS * [place] level in AM (too late to obtain trough level today) * A private room remains medically necessary for the safety of self and others due to pt's significant irritability 02/10/2023: Continue current medications and tx plan. 02/09/2023: Increase clozapine to 300mg HS. 02/08/2023: Continue current medications and tx plan. Recheck Li level on 02/11/2023. 02/07/2023: Continue current medications and tx plan. 02/06/2023: Increase Lithobid from 600mg BID to 600mg qAM and 900mg HS. 02/05/2023: Continue current medications and tx plan. 02/04/2023: Consider SSRI trial once [place] records can be reviewed and once he becomes willing to consider medication adjustments. 02/03/23: The patient is not willing to discuss medication changes and will not accept Ativan or Haldol prns at this time. Records from [place] pending. 02/02/23: The patient was admitted to the [facility] ([facility] mental health unit) on q15 min checks (behavioral with suicide precautions) for safety. The patient will participate in group, recreational, and milieu therapies and will be offered additional individual and family sessions as clinically appropriate. Will check orthostatics and hold am clozaril with plan to shift dosing more toward hs. [place] level in am, does not appear toxic but his level was not a true trough. Inventory Assets Strengths: cooperative at [facility], help seeking Needs: improve coping, improve insight into condition Suicide Risk Level Suicide Risk Level: Moderate (q15 min suicide checks) (depression, psychosis but now denying SI, mood starting to improve and feels safe in the hospital and feels comfortable letting nurses know if he feels unable to remain safe or requires additional support) Risk Factors Assessment Male: Yes : Yes Do You Have Access To A Gun?: No Mental Health Diagnoses: Yes Previous Psychiatric Hospitalization: Yes Protective Factors Assessment Employed: No Supportive Family: Yes Interval History Identifying Information NASEEM MCGEE is a 27-year-old M, resident of [facility], has a history of schizoaffective disorder and multiple hospitalizations (including [facility]), and was admitted on 02/02/23 08:59 on a 201 voluntary commitment for SI in the context of increase in paranoid delusions. Chief Complaint "I'm a lot better". Review of Systems Sleep Information Total Hours of Sleep: 7 Meal Information Percent Meal Consumed - Breakfast: 100 Percent Meal Consumed - Lunch: 100 Percent Meal Consumed - Dinner: 100 Subjective Subjective Patient was seen & assessed and interval progress reviewed with treatment team nursing and social work. Walking a lot in the halls and responding to internal stimuli. Reports his mood is "a lot better" and denies SI. Denies medication side effects. He denies any dizziness though orthostatics notable for orthostatic hypotension this morning, he denies having any symptoms related to this. Physical Exam Psychiatric Orientation: alert and oriented x 3 Apperance: appropriately dressed and appropriately groomed Eye Contact: + fair eye contact Motor Behavior: no abnormal motor movements Speech: normal rate/rhythm/volume of speech Affect: + constricted affect Mood: + depressed mood Thought Process: + concrete thought process Thought Content: + delusions Suicidal Thoughts: denies suicidal thoughts, denies suicidal plan and denies suicidal intent Homicidal Thoughts: denies homicidal thoughts Hallucinations: + auditory hallucinations; no visual hallucinations Cognition: language grossly intact; + attention not intact Insight: + limited insight Judgment: + limited judgement Vital Signs (Past 24 Hours) Last Vital Signs Temp 36.6 C 02/20/23 06:37 Pulse 112 H 02/20/23 06:37 Resp 16 02/20/23 06:37 BP 84/50 L 02/20/23 06:37 Pulse Ox 98 02/19/23 06:00 O2 Del Method Room Air 02/19/23 06:00 Results & Data ([facility]) Laboratory Results Laboratory Results - last 24 hr 02/20/23 08:54 WBC 11.34 H RBC 5.70 Hgb 15.6 Hct 47.3 MCV 83.0 MCH 27.4 MCHC 33.0 RDW Std Deviation 41.6 RDW Coeff of [place] 13.8 Plt Count 321 MPV 9.9 Immature Gran % (Auto) 1.8 Neut % (Auto) 63.6 Lymph % (Auto) 21.5 [place] % (Auto) 8.6 Eos % (Auto) 3.7 Baso % (Auto) 0.8 Neut # (Auto) 7.21 H Lymph # (Auto) 2.44 [place] # (Auto) 0.98 H Eos # (Auto) 0.42 Baso # (Auto) 0.09 Immature Gran # (Auto) 0.20 Current Inpatient Medications Current Inpatient Medications: Current Inpatient Medications Acetaminophen (Acetaminophen 325 Mg Tab) 650 mg PO Q4H PRN PRN Reason: Headache or Minor Fever Stop: 03/04/23 08:58 Al Hydrox/Mg Hydrox/Simethicone (Aluminum/Magnesium Susp 30 Ml Udc) 30 ml PO Q4H PRN PRN Reason: GI Upset Stop: 03/04/23 08:58 Benztropine Mesylate (Benztropine Mesylate 1 Mg Tab) 1 mg PO Q6 PRN PRN Reason: Muscle Spasm Stop: 03/04/23 15:28 Last Admin: 02/11/23 22:58 Dose: 1 mg Bismuth Subsalicylate (Bismuth Subsalicylate Liqd 236 Ml) 15 ml PO PRN PRN PRN Reason: Loose Stool Stop: 03/04/23 08:58 Citalopram Hydrobromide (Citalopram 20 Mg Tab) [facility] Stop: 03/14/23 14:44 Last Admin: 02/20/23 09:15 Dose: 20 mg Clozapine (Clozapine 100 Mg Tab) 250 mg PO [facility] Stop: 03/14/23 21:59 Last Admin: 02/19/23 21:27 Dose: 250 mg Clozapine (Clozapine 100 Mg Tab) 100 mg PO DAILY [facility] Stop: 03/14/23 13:29 Last Admin: 02/20/23 09:16 Dose: 100 mg Docusate Sodium (Docusate Sodium 100 Mg Cap) 250 mg PO DAILY PRN PRN Reason: Constipation Stop: 03/13/23 08:59 Haloperidol (Haloperidol 5 Mg Tab) 5 mg PO Q4 PRN PRN Reason: Agitation Stop: 03/04/23 15:28 [place] Carbonate ([place] Carbonate Slow Rel 300 Mg Tab) 600 [facility] [place] Stop: 03/09/23 08:59 Last Admin: 02/20/23 09:16 Dose: 600 mg [place] Carbonate ([place] Carbonate 450 Mg Tabcr) 900 mg PO [facility] Stop: 03/08/23 21:59 Last Admin: 02/19/23 21:28 Dose: 900 mg Lorazepam (Lorazepam 1 Mg Tab) 1 mg PO Q6 PRN PRN Reason: Anxiety/Agitation Stop: 03/04/23 15:28 Last Admin: 02/11/23 22:58 Dose: 1 mg Magnesium Hydroxide (Magnesium Hydroxide Susp 30 Ml Udc) 30 ml PO DAILY PRN PRN Reason: Constipation Stop: 03/04/23 08:58 Polyethylene Glycol (Polyethylene (Miralax) 17 Gm Pack) 17 gm PO DAILY PRN PRN Reason: Constipation 1st choice Stop: 03/12/23 16:17 Sodium Chloride (Sodium Chloride 0.65% Na Soln 45 Ml ([place])) 1 - 2 sprays NA PRN PRN PRN Reason: Nasal Dryness/Congestion Stop: 03/04/23 08:58 Mental Health & Subst Abuse Tx Psychiatrist Name of Psychiatrist: Kody Rogers Psychiatrist's Date Of Appointment With Psychiatric Provider: 03/01/23 Time of Appointment with Psychiatrist: 1 PM Psychiatric Appointment Comment: [address], [place] [address] Therapist Name of Therapist: Cheko Zamarripa Therapist's Date of Therapist Appointment: 02/28/23 Time of Therapist Appointment: 1 PM Therapy Appointment Comment: [address], [address], [place] [address] Supervisor [employer] Name of Supervisor [employer]: Rose @ [place] [facility] Phone Number for Supervisor [employer]: [phone] Case Management Appointment Comment: Please resume your normal schedule. Post Discharge Appointments Primary Care Physician Name Of Family Doctor/PCP: Kody Dunn Primary Care Provider Appointment Comment: [address], [place] [address]
[2023-02-20] MEDS: LITHIUM CARBONATE 450 MG TABCR PO SCH (21:18)
--- NOTE | 2023-02-21 08:34 | Psychiatric Progress Note ---
Date of Service February 21, 2023 Impression / Recommendations Impression 27 yo man with history of schizoaffective disorder, who resides in a local personal fdc due to severe persistent degree of symptoms, has been hospitalized several times following state [facility], currently suicidal with plan to jump into traffic due to dizziness and worsening of his baseline paranoid delusions. Diagnostically consistent with acute exacerbation of schizoaffective disorder as well as likely major depressive episode. MNPR due to psychosis, paranoia, periods of past HI 02/21/2023: Mood is stabilizing, still with a lot of responses to internal stimuli but content seems to be more reality-based. Still with prominent orthostatic hypotension but he feels this is tolerable and not interfering with his quality of life or ability to engage in daily activities. Working on disposition planning. (1) Schizoaffective disorder, bipolar type: Plan 02/21/2023: Continue current medications and tx plan. 02/20/2023: Continue current medications and tx plan. Begin to explore disposition planning options. 02/19/2023: Continue current medications and tx plan. 02/18/2023: Continue current medications and tx plan. 02/17/2023: * continue clozapine 100 mg QAM & 250 mg QHS * continue lithium 600 mg QAM & 900 mg QHS * continue citalopram 20 mg daily. * continue lorazepam 1 mg Q6 Hr PRN * A private room remains medically necessary for the safety of self and others due to pt's restlessness and paranoia 02/16/2023: * continue clozapine 100 mg QAM & 250 mg QHS * continue lithium 600 mg QAM & 900 mg QHS * continue citalopram 20 mg daily. * continue lorazepam 1 mg Q6 Hr PRN * A private room remains medically necessary for the safety of self and others due to pt's restlessness and paranoia 02/15/2023: * Labs today: CBC with differential, CMP * Monitor fluid intake * continue clozapine 100 mg QAM & 250 mg QHS * continue lithium 600 mg QAM & 900 mg QHS * continue citalopram 20 mg daily. * continue lorazepam 1 mg Q6 Hr PRN * A private room remains medically necessary for the safety of self and others due to pt's significant irritability 02/14/2023: * continue clozapine 100 mg QAM & 250 mg QHS * continue citalopram 20 mg daily. * stop lorazepam 0.5 mg TID due to refusal of scheduled doses * continue lorazepam 1 mg Q6 Hr PRN * continue lithium 600 mg QAM & 900 mg QHS * A private room remains medically necessary for the safety of self and others due to pt's significant irritability 02/13/2023: * continue clozapine 100 mg QAM & 250 mg QHS * continue citalopram 20 mg daily. * continue scheduled lorazepam 0.5 mg TID; consider further titration as tolerat ed * continue lithium 600 mg QAM & 900 mg QHS * A private room remains medically necessary for the safety of self and others due to pt's significant irritability 02/12/2023: * Revert clozapine back to previous dose (at which therapeutic blood level was established) of 100 mg QAM & 250 mg QHS * Start trial of citalopram 10 mg daily, titrate rapidly to 20 mg daily. * Start scheduled lorazepam 0.5 mg TID * Continue lithium 600 mg QAM & 900 mg QHS given lithium level this AM of 0.9 mmol/L * A private room remains medically necessary for the safety of self and others due to pt's significant irritability : * Continue clozapine 300 mg QHS * Continue lithium 600 mg QAM & 900 mg QHS * [place] level in AM (too late to obtain trough level today) * A private room remains medically necessary for the safety of self and others due to pt's significant irritability 02/10/2023: Continue current medications and tx plan. 02/09/2023: Increase clozapine to 300mg HS. 02/08/2023: Continue current medications and tx plan. Recheck Li level on 02/11/2023. 02/07/2023: Continue current medications and tx plan. 02/06/2023: Increase Lithobid from 600mg BID to 600mg qAM and 900mg HS. 02/05/2023: Continue current medications and tx plan. 02/04/2023: Consider SSRI trial once [place] records can be reviewed and once he becomes willing to consider medication adjustments. 02/03/23: The patient is not willing to discuss medication changes and will not accept Ativan or Haldol prns at this time. Records from [place] pending. 02/02/23: The patient was admitted to the [facility] ([facility]) on q15 min checks (behavioral with suicide precautions) for safety. The patient will participate in group, recreational, and milieu therapies and will be offered additional individual and family sessions as clinically appropriate. Will check orthostatics and hold am clozaril with plan to shift dosing more toward hs. [place] level in am, does not appear toxic but his level was not a true trough. Inventory Assets Strengths: cooperative at [facility], help seeking Needs: improve coping, improve insight into condition Suicide Risk Level Suicide Risk Level: Moderate (q15 min suicide checks) (depression, psychosis but now denying SI, mood starting to improve and feels safe in the hospital and feels comfortable letting nurses know if he feels unable to remain safe or requires additional support) Risk Factors Assessment Male: Yes : Yes Do You Have Access To A Gun?: No Mental Health Diagnoses: Yes Previous Psychiatric Hospitalization: Yes Protective Factors Assessment Employed: No Supportive Family: Yes Interval History Identifying Information NASEEM MCGEE is a 27-year-old M, resident of [facility], has a history of schizoaffective disorder and multiple hospitalizations (including [facility]), and was admitted on 02/02/23 08:59 on a 201 voluntary commitment for SI in the context of increase in paranoid delusions. Chief Complaint "I'm good". Review of Systems Sleep Information Total Hours of Sleep: 6.5 Meal Information Percent Meal Consumed - Breakfast: 100 Percent Meal Consumed - Lunch: 100 Percent Meal Consumed - Dinner: 90 Subjective Subjective Patient was seen & assessed and interval progress reviewed with treatment team nursing and social work. Observed talking to himself almost all afternoon and evening almost constantly. Seemed to be a largely pleasant conversation he was having but clearly responding to constant internal stimuli. Tells me today he was not responding to voices but rather having a conversation with himself. States the topic was "science theories like fluid dynamics". Was able to have a brief conversation with me about reality-based fluid dynamics principles and equations that he was thinking about. Denies SI. Sleeping well. Had some dizziness when getting up to use the bathroom overnight but denies any other medication side effects. He feels the dizziness is tolerable and doesn't want to make any medication changes. Discussed orthostatic hypotension and goals of maintaining good hydration and shifting slowly from lying to sitting before standing to reduce risk of falls or syncope which he understands and has been trying to do. Physical Exam Psychiatric Orientation: alert and oriented x 3 Apperance: appropriately dressed and appropriately groomed Eye Contact: + fair eye contact Motor Behavior: no abnormal motor movements Speech: normal rate/rhythm/volume of speech Affect: + constricted affect Mood: + depressed mood Thought Process: + concrete thought process Thought Content: + delusions Suicidal Thoughts: denies suicidal thoughts, denies suicidal plan and denies suicidal intent Homicidal Thoughts: denies homicidal thoughts Hallucinations: + auditory hallucinations (he denies but responding to internal stimuli); no visual hallucinations Cognition: recent memory grossly intact, remote memory grossly intact, attention grossly intact and language grossly intact Insight: + limited insight Judgment: + limited judgement Vital Signs (Past 24 Hours) Last Vital Signs Temp 36.6 C 02/21/23 06:40 Pulse 113 H 02/21/23 06:41 Resp 16 02/21/23 06:40 BP 90/53 L 02/21/23 06:41 Pulse Ox 98 02/19/23 06:00 O2 Del Method Room Air 02/19/23 06:00 Results & Data ([facility]) Laboratory Results Laboratory Results - last 24 hr 02/20/23 08:54 WBC 11.34 H RBC 5.70 Hgb 15.6 Hct 47.3 MCV 83.0 MCH 27.4 MCHC 33.0 RDW Std Deviation 41.6 RDW Coeff of [place] 13.8 Plt Count 321 MPV 9.9 Immature Gran % (Auto) 1.8 Neut % (Auto) 63.6 Lymph % (Auto) 21.5 [place] % (Auto) 8.6 Eos % (Auto) 3.7 Baso % (Auto) 0.8 Neut # (Auto) 7.21 H Lymph # (Auto) 2.44 [place] # (Auto) 0.98 H Eos # (Auto) 0.42 Baso # (Auto) 0.09 Immature Gran # (Auto) 0.20 Current Inpatient Medications Current Inpatient Medications: Current Inpatient Medications Acetaminophen (Acetaminophen 325 Mg Tab) 650 mg PO Q4H PRN PRN Reason: Headache or Minor Fever Stop: 03/04/23 08:58 Al Hydrox/Mg Hydrox/Simethicone (Aluminum/Magnesium Susp 30 Ml Udc) 30 ml PO Q4H PRN PRN Reason: GI Upset Stop: 03/04/23 08:58 Benztropine Mesylate (Benztropine Mesylate 1 Mg Tab) 1 mg PO Q6 PRN PRN Reason: Muscle Spasm Stop: 03/04/23 15:28 Last Admin: 02/11/23 22:58 Dose: 1 mg Bismuth Subsalicylate (Bismuth Subsalicylate Liqd 236 Ml) 15 ml PO PRN PRN PRN Reason: Loose Stool Stop: 03/04/23 08:58 Citalopram Hydrobromide (Citalopram 20 Mg Tab) [facility] Stop: 03/14/23 14:44 Last Admin: 02/20/23 09:15 Dose: 20 mg Clozapine (Clozapine 100 Mg Tab) 250 mg PO [facility] Stop: 03/14/23 21:59 Last Admin: 02/20/23 21:17 Dose: 250 mg Clozapine (Clozapine 100 Mg Tab) 100 mg PO DAILY [facility] Stop: 03/14/23 13:29 Last Admin: 02/20/23 09:16 Dose: 100 mg Docusate Sodium (Docusate Sodium 100 Mg Cap) 250 mg PO DAILY PRN PRN Reason: Constipation Stop: 03/13/23 08:59 Haloperidol (Haloperidol 5 Mg Tab) 5 mg PO Q4 PRN PRN Reason: Agitation Stop: 03/04/23 15:28 [place] Carbonate ([place] Carbonate Slow Rel 300 Mg Tab) 600 [facility] Stop: 03/09/23 08:59 Last Admin: 02/20/23 09:16 Dose: 600 mg [place] Carbonate ([place] Carbonate 450 Mg Tabcr) 900 mg PO [facility] Stop: 03/08/23 21:59 Last Admin: 02/20/23 21:18 Dose: 900 mg Lorazepam (Lorazepam 1 Mg Tab) 1 mg PO Q6 PRN PRN Reason: Anxiety/Agitation Stop: 03/04/23 15:28 Last Admin: 02/11/23 22:58 Dose: 1 mg Magnesium Hydroxide (Magnesium Hydroxide Susp 30 Ml Udc) 30 ml PO DAILY PRN PRN Reason: Constipation Stop: 03/04/23 08:58 Polyethylene Glycol (Polyethylene (Miralax) 17 Gm Pack) 17 gm PO DAILY PRN PRN Reason: Constipation 1st choice Stop: 03/12/23 16:17 Sodium Chloride (Sodium Chloride 0.65% Na Soln 45 Ml ([place])) 1 - 2 sprays NA PRN PRN PRN Reason: Nasal Dryness/Congestion Stop: 03/04/23 08:58 Mental Health & Subst Abuse Tx Psychiatrist Name of Psychiatrist: Kody Rogers Psychiatrist's Date Of Appointment With Psychiatric Provider: 03/01/23 Time of Appointment with Psychiatrist: 1 PM Psychiatric Appointment Comment: [address], [place] [address] Therapist Name of Therapist: Cheko Zamarripa Therapist's Date of Therapist Appointment: 02/28/23 Time of Therapist Appointment: 1 PM Therapy Appointment Comment: [address], [address], [place] [address] Jaw Skinner Name of Jaw Skinner: Rose @ [place] [facility] Phone Number for Jaw Skinner: [phone] Case Management Appointment Comment: Please resume your normal schedule. Post Discharge Appointments Primary Care Physician Name Of Family Doctor/PCP: Kody Dunn Primary Care Provider Appointment Comment: [address], [place] [address]
[2023-02-21] MEDS: cloZAPine 100 MG TAB PO SCH ×2 (10:08→21:15)
[2023-02-21] MEDS: LITHIUM CARBONATE SLOW REL 300 MG TAB PO SCH (10:08)
[2023-02-21] MEDS: CITALOPRAM 20 MG TAB PO SCH (10:08)
[2023-02-21] MEDS: LITHIUM CARBONATE 450 MG TABCR PO SCH (21:14)
[2023-02-22] MEDS: CITALOPRAM 20 MG TAB PO SCH (08:30)
[2023-02-22] MEDS: LITHIUM CARBONATE SLOW REL 300 MG TAB PO SCH (08:31)
[2023-02-22] MEDS: cloZAPine 100 MG TAB PO SCH ×2 (08:31→21:23)
--- NOTE | 2023-02-22 18:01 | Psychiatric Progress Note ---
Date of Service February 22, 2023 Impression / Recommendations Impression 27 yo man with history of schizoaffective disorder, who resides in a local personal assisted due to severe persistent degree of symptoms, has been hospitalized several times following state hospital stay, currently suicidal with plan to jump into traffic due to dizziness and worsening of his baseline paranoid delusions. Diagnostically consistent with acute exacerbation of schizoaffective disorder as well as likely major depressive episode. MNPR due to history of psychosis/paranoia/prefers to have space to isolate when overstimulated by peers 02/22/2023: Mood improving with consistent recent denial of SI, tolerating his medications and showing lessening of responses to internal stimuli. Motivated for discharge soon. Had a successful support meeting with his CM. (1) Schizoaffective disorder, bipolar type: Plan 02/22/2023: Continue current medications and tx plan. 02/21/2023: Continue current medications and tx plan. 02/20/2023: Continue current medications and tx plan. Begin to explore disposition planning options. 02/19/2023: Continue current medications and tx plan. 02/18/2023: Continue current medications and tx plan. 02/17/2023: * continue clozapine 100 mg QAM & 250 mg QHS * continue lithium 600 mg QAM & 900 mg QHS * continue citalopram 20 mg daily. * continue lorazepam 1 mg Q6 Hr PRN * A private room remains medically necessary for the safety of self and others due to pt's restlessness and paranoia 02/16/2023: * continue clozapine 100 mg QAM & 250 mg QHS * continue lithium 600 mg QAM & 900 mg QHS * continue citalopram 20 mg daily. * continue lorazepam 1 mg Q6 Hr PRN * A private room remains medically necessary for the safety of self and others due to pt's restlessness and paranoia 02/15/2023: * Labs today: CBC with differential, CMP * Monitor fluid intake * continue clozapine 100 mg QAM & 250 mg QHS * continue lithium 600 mg QAM & 900 mg QHS * continue citalopram 20 mg daily. * continue lorazepam 1 mg Q6 Hr PRN * A private room remains medically necessary for the safety of self and others due to pt's significant irritability 02/14/2023: * continue clozapine 100 mg QAM & 250 mg QHS * continue citalopram 20 mg daily. * stop lorazepam 0.5 mg TID due to refusal of scheduled doses * continue lorazepam 1 mg Q6 Hr PRN * continue lithium 600 mg QAM & 900 mg QHS * A private room remains medically necessary for the safety of self and others due to pt's significant irritability 02/13/2023: * continue clozapine 100 mg QAM & 250 mg QHS * continue citalopram 20 mg daily. * continue scheduled lorazepam 0.5 mg TID; consider further titration as tolerated * continue lithium 600 mg QAM & 900 mg QHS * A private room remains medically necessary for the safety of self and others due to pt's significant irritability 02/12/2023: * Revert clozapine back to previous dose (at which therapeutic blood level was established) of 100 mg QAM & 250 mg QHS * Start trial of citalopram 10 mg daily, titrate rapidly to 20 mg daily. * Start scheduled lorazepam 0.5 mg TID * Continue lithium 600 mg QAM & 900 mg QHS given lithium level this AM of 0.9 mmol/L * A private room remains medically necessary for the safety of self and others due to pt's significant irritability : * Continue clozapine 300 mg QHS * Continue lithium 600 mg QAM & 900 mg QHS * [place] level in AM (too late to obtain trough level today) * A private room remains medically necessary for the safety of self and others due to pt's significant irritability 02/10/2023: Continue current medications and tx plan. 02/09/2023: Increase clozapine to 300mg HS. 02/08/2023: Continue current medications and tx plan. Recheck Li level on 02/11/2023. 02/07/2023: Continue current medications and tx plan. 02/06/2023: Increase Lithobid from 600mg BID to 600mg qAM and 900mg HS. 02/05/2023: Continue current medications and tx plan. 02/04/2023: Consider SSRI trial once [place] records can be reviewed and once he becomes willing to consider medication adjustments. 02/03/23: The patient is not willing to discuss medication changes and will not accept Ativan or Haldol prns at this time. Records from [place] pending. 02/02/23: The patient was admitted to the [facility] ([facility] mental [facility]) on q15 min checks (behavioral with suicide precautions) for safety. The patient will participate in group, recreational, and milieu therapies and will be offered additional individual and family sessions as clinically appropriate. Will check orthostatics and hold am clozaril with plan to shift dosing more toward hs. [place] level in am, does not appear toxic but his level was not a true trough. Inventory Assets Strengths: cooperative at [facility], help seeking Needs: improve coping, improve insight into condition Suicide Risk Level Suicide Risk Level: Low (q15 min observation checks) (mood improved, denies SI, psychosis has improved and feels comfortable letting nurses know if he feels unable to remain safe or requires additional support) Risk Factors Assessment Male: Yes : Yes Do You Have Access To A Gun?: No Mental Health Diagnoses: Yes Previous Psychiatric Hospitalization: Yes Protective Factors Assessment Employed: No Supportive Family: Yes Interval History Identifying Information NASEEM MCGEE is a 27-year-old M, resident of [facility], has a history of schizoaffective disorder and multiple hospitalizations (including [facility]), and was admitted on 02/02/23 08:59 on a 201 voluntary commitment for SI in the context of increase in paranoid delusions. Chief Complaint "I'm great". Review of Systems Sleep Information Total Hours of Sleep: 6.75 Meal Information Percent Meal Consumed - Breakfast: 100 Percent Meal Consumed - Lunch: 100 Percent Meal Consumed - Dinner: 100 Subjective Subjective Patient was seen & assessed and interval progress reviewed with treatment team nursing and social work. Responding less frequently to internal stimuli, mood remains stable and consistently denying SI. Reports his mood is "great" and likes his current medications. Denies any side effects except that he noticed he sweats more when he lies down during the day. Discussed this could be side effects from clozapine versus due to plastic mattress and large windows that can make his room in the hospital get warm. He doesn't find this symptom bothersome at this point and agrees to let his provider know if it ever worsened in the future. Physical Exam Psychiatric Orientation: alert and oriented x 3 Apperance: appropriately dressed and appropriately groomed Eye Contact: good eye contact Motor Behavior: no abnormal motor movements Speech: normal rate/rhythm/volume of speech Affect: + constricted affect (with smiles when he greets staff in the halls) Mood: + anxious mood; no depressed mood Thought Process: goal directed thought process and + concrete thought process Thought Content: reality based without delusions Suicidal Thoughts: denies suicidal thoughts, denies suicidal plan and denies suicidal intent Homicidal Thoughts: denies homicidal thoughts Hallucinations: no auditory hallucinations and no visual hallucinations Cognition: recent memory grossly intact, remote memory grossly intact, attention grossly intact and language grossly intact Insight: + fair insight Judgment: + fair judgement Vital Signs (Past 24 Hours) Last Vital Signs Temp 36.5 C 02/21/23 20:00 Pulse 83 02/22/23 06:34 Resp 16 02/22/23 06:34 BP 111/70 02/22/23 06:34 Pulse Ox 98 02/19/23 06:00 O2 Del Method Room Air 02/19/23 06:00 Results & Data ([facility]) Current Inpatient Medications Current Inpatient Medications: Current Inpatient Medications Acetaminophen (Acetaminophen 325 Mg Tab) 650 mg PO Q4H PRN PRN Reason: Headache or Minor Fever Stop: 03/04/23 08:58 Al Hydrox/Mg Hydrox/Simethicone (Aluminum/Magnesium Susp 30 Ml Udc) 30 ml PO Q4H PRN PRN Reason: GI Upset Stop: 03/04/23 08:58 Benztropine Mesylate (Benztropine Mesylate 1 Mg Tab) 1 mg PO Q6 PRN PRN Reason: Muscle Spasm Stop: 03/04/23 15:28 Last Admin: 02/11/23 22:58 Dose: 1 mg Bismuth Subsalicylate (Bismuth Subsalicylate Liqd 236 Ml) 15 ml PO PRN PRN PRN Reason: Loose Stool Stop: 03/04/23 08:58 Citalopram Hydrobromide (Citalopram 20 Mg Tab) 20 mg PO QAM [facility] Stop: 03/14/23 14:44 Last Admin: 02/22/23 08:30 Dose: 20 mg Clozapine (Clozapine 100 Mg Tab) 250 mg PO HS [facility] Stop: 03/14/23 21:59 Last Admin: 02/21/23 21:15 Dose: 250 mg Clozapine (Clozapine 100 Mg Tab) 100 mg PO DAILY [facility] Stop: 03/14/23 13:29 Last Admin: 02/22/23 08:31 Dose: 100 mg Docusate Sodium (Docusate Sodium 100 Mg Cap) 250 mg PO DAILY PRN PRN Reason: Constipation Stop: 03/13/23 08:59 Haloperidol (Haloperidol 5 Mg Tab) 5 mg PO Q4 PRN PRN Reason: Agitation Stop: 03/04/23 15:28 [place] Carbonate ([place] Carbonate Slow Rel 300 Mg Tab) 600 mg PO QAM [facility] Stop: 03/09/23 08:59 Last Admin: 02/22/23 08:31 Dose: 600 mg [place] Carbonate ([place] Carbonate 450 Mg Tabcr) 900 mg PO HS [facility] Stop: 03/08/23 21:59 Last Admin: 02/21/23 21:14 Dose: 900 mg Lorazepam (Lorazepam 1 Mg Tab) 1 mg PO Q6 PRN PRN Reason: Anxiety/Agitation Stop: 03/04/23 15:28 Last Admin: 02/11/23 22:58 Dose: 1 mg Magnesium Hydroxide (Magnesium Hydroxide Susp 30 Ml Udc) 30 ml PO DAILY PRN PRN Reason: Constipation Stop: 03/04/23 08:58 Polyethylene Glycol (Polyethylene (Miralax) 17 Gm Pack) 17 gm PO DAILY PRN PRN Reason: Constipation 1st choice Stop: 03/12/23 16:17 Sodium Chloride (Sodium Chloride 0.65% Na Soln 45 Ml ([place])) 1 - 2 sprays NA PRN PRN PRN Reason: Nasal Dryness/Congestion Stop: 03/04/23 08:58 Mental Health & Subst Abuse Tx Psychiatrist Name of Psychiatrist: Kody Rogers Psychiatrist's Date Of Appointment With Psychiatric Provider: 03/01/23 Time of Appointment with Psychiatrist: 1 PM Psychiatric Appointment Comment: [address], [place] [address] Therapist Name of Therapist: Cheko Zamarripa Therapist's Date of Therapist Appointment: 02/28/23 Time of Therapist Appointment: 1 PM Therapy Appointment Comment: [address], [address], [place] [address] Videotape Sales Representative Name of Videotape Sales Representative: Rose @ [place] [facility] Phone Number for Videotape Sales Representative: [phone] Date of Appointment with Videotape Sales Representative: 03/02/23 Time of Appointment with Videotape Sales Representative: 10am Case Management Appointment Comment: Please resume your normal schedule. Post Discharge Appointments Primary Care Physician Name Of Family Doctor/PCP: Kody Dunn Primary Care Time of Appointment with PCP: please follow up as needed Provider Appointment Comment: [address], [place] [address] Contact Information Discharge Discharge Address: [address] [place] [address]
[2023-02-22] MEDS: LITHIUM CARBONATE 450 MG TABCR PO SCH (21:23)
[2023-02-23] MEDS: LITHIUM CARBONATE SLOW REL 300 MG TAB PO SCH (08:07)
[2023-02-23] MEDS: CITALOPRAM 20 MG TAB PO SCH (08:07)
[2023-02-23] MEDS: cloZAPine 100 MG TAB PO SCH (08:08)
--- NOTE | 2023-02-23 08:22 | Discharge Summary ---
Date of Service February 23, 2023 History of Present Illness Patient was last admitted to [facility] 12/20/22-12/22/22 where his Haldol and Cogentin were discontinued in favor of a trial of an increase in Spalding and clozapine. Since that time he has beeing following with [place] provider and been compliant with medications. He confirmed history as documented by ED CM: He stated he saw a therapist today (unknown name/agency) who advised to come to ED for mental health evaluation. Javid stated he is having suicidal thoughts with plan to run in front of a truck or jump from a building. He stated he was close to jumping in front of a truck today. He denies HI or aggression. He denies SIB. He denies hallucinations. He admits to paranoid delusion based thinking. He stated he "thinks the world ended and thought my therapist had government agents trying to kill me." He denies any medical issues. He denies drug or alcohol use. He denies legal issues. He was cooperative with the admission process by liaison nurse. He is currently in bed complaining of room spinning which he attributes to clozaril (am dose was give in the ED). Physical Exam Vital Signs (Past 24 Hours) Last Vital Signs Temp 36.4 C 02/23/23 06:34 Pulse 83 02/23/23 06:34 Resp 18 02/23/23 06:34 BP 115/77 02/23/23 06:36 Pulse Ox 98 02/19/23 06:00 O2 Del Method Room Air 02/19/23 06:00 See admission H&P and DOD summary. Principal Diagnosis Schizoaffective Disorder, current depressive episode Psychiatric Data See daily stay summary. Initially during his admission he reported intense SI and was largely isolative to his room and spent most of the day in bed. His clozapine was lowered initially due to concerns about orthostatic hypotension leading to dizziness. However, even when his vital signs stabilized he continued to report dizziness and other variable somatic symptoms. After his lithium and clozapine doses were increased he reported lessening of his somatic symptoms even though he continued to have signs of orthostatic hypotension at times. He identified only feeling dizzy at times when standing up in the middle of the night to use the bathroom but was receptive to moving positions slowly to reduce these symptoms and he found this helpful. He was also started on citalopram for augmentation for depression and started to show significant improvement in mood with no further suicidal ideation, increased socialization, spent most of the day walking around instead of lying in bed and was noted to have more affect with smiles and engagement. During his stay he was engaged with the social/therapeutic milieu of the unit, safety was maintained and the patient was cooperative with care. Medication changes included increase of clozapine to 100mg qd and 250mg HS, increase of Spalding to 600mg qd and 900mg HS and citalopram 20mg daily and they tolerated this well. His WBC and ANC remained stable. His Spalding level at discharge was 0.9 mmol/L . A support session was held and safety plan was completed prior to discharge. In the days leading up to discharge he consistently denied any SI. He participated in safety planning and in discussions about ways to seek support and recognizing warning signs and utilizing coping skills. Reviewed importance of seeking emergency care should SI intensify, worsen or should they feel unsafe in the future which they agree to do. 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 Day of Discharge Assessment Today the patient voices readiness for discharge. They note improvement in mood and anxiety. They deny thoughts of harm to self or others. Thoughts are organized and they are clinically improved from admission. There is no evidence of psychosis. They improved in the hospital with support and medication adjustments. They agree to take medications as prescribed and keep follow-up appointments. At the time of the discharge they are deemed to be stable and appropriate for outpatient level of care. They are not deemed to be at imminent risk of harm to self or others. They are aware of emergency and crisis services. Knows to call 911 or go to nearest emergency care center if in a crisis which cannot be handled as an outpatient. Transition of Care Transition Of Care Record: was reviewed with the patient Advance Directives Advance Directives Information Provided: Yes Advance Directives: No Mental Health Advance Directive: No Advance Directives on File: No Living Will: No Power of Marine Engine Machinist Apprentice: No Advance Directives Reason:: Declines as Mental Health Visit. Suicide Risk Level Suicide Risk Level Comments: Acute risk is low given improvement in mood and psychosis, denial of SI, lack of access to lethal means, improvement in sleep cycle, hopefulness. Chronic risk is moderate given some non-modifiable risk factors: psychiatric co-morbid diagnoses, periods of impulsivity, prior psychiatric hospitalizations, poor social support, mood disorder, schizophrenia but also with protective factors including: supportive living environment, sense of responsibility to family and social supports, outpatient care in place, positive coping skills, capacity to establish therapeutic alliance, willingness to engage with treatment and capacity for self-observation. Counseled on ways to reduce acute and chronic risk including engaging with outpatient providers, using safety plan if needed, utilizing supports, taking medication, and using coping skills. Modifiable risk factors of psychosis, SI and depression were addressed during hospitalization through development of new coping skills, family meeting, safety planning, and medication adjustments. Risk Factors Assessment Male: Yes : Yes Do You Have Access To A Gun?: No Health Problems: No Mental Health Diagnoses: Yes Substance Use Disorders: No Previous Attempt: No Family History of Suicide: No Previous Psychiatric Hospitalization: Yes Hopelessness: No Protective Factors Assessment Employed: No Supportive Family: Yes Good Rapport with Provider: Yes Discharge Data Lab Results 02/01/23 02/01/23 02/01/23 17:20 17:20 17:20 WBC RBC Hgb Hct MCV MCH MCHC RDW Std Deviation RDW Coeff of Belén Plt Count MPV Immature Gran % (Auto) Neut % (Auto) Lymph % (Auto) Robertson % (Auto) Eos % (Auto) Baso % (Auto) Neut # (Auto) Lymph # (Auto) Robertson # (Auto) Eos # (Auto) Baso # (Auto) Immature Gran # (Auto) Sodium Potassium Chloride Carbon Dioxide Anion Gap BUN Creatinine Est Cr Clr Drug Dosing Est GFR ( Amer) Est GFR (Non-Af Amer) BUN/Creatinine Ratio Glucose Calcium Total Bilirubin AST ALT Alkaline Phosphatase Total Protein Albumin Globulin Albumin/Globulin Ratio TSH Urine Color Yellow Urine Appearance Clear Urine pH 5.5 Ur Specific [place] 1.014 Urine Protein Negative Urine Glucose (UA) Negative Urine Ketones Negative Urine Blood Negative Urine Nitrite Negative Urine Bilirubin Negative Urine Urobilinogen Negative Ur Leukocyte Esterase Negative Salicylates Urine Opiates Screen Neg Ur Methadone, Qual Neg Acetaminophen Urine Barbiturates Neg Ur Phencyclidine (PCP) Neg U Amphetamin/Meth Scrn Neg MDMA (Ecstasy) Screen Neg U Benzodiazepines Scrn Neg Spalding Ur Cocaine Metabolite Neg U Marijuana (THC) Screen Neg Ethyl Alcohol mg/dL SARS-CoV-2, RNA, NAAT NEGATIVE 02/01/23 02/01/23 02/01/23 17:44 17:44 17:44 WBC 10.06 RBC 5.52 Hgb 15.4 Hct 45.8 MCV 83.0 MCH 27.9 MCHC 33.6 RDW Std Deviation 43.1 RDW Coeff of Belén 14.2 Plt Count 333 MPV 9.8 Immature Gran % (Auto) 0.5 Neut % (Auto) 72.4 Lymph % (Auto) 18.8 Robertson % (Auto) 6.9 Eos % (Auto) 0.9 Baso % (Auto) 0.5 Neut # (Auto) 7.29 H Lymph # (Auto) 1.89 Robertson # (Auto) 0.69 H Eos # (Auto) 0.09 Baso # (Auto) 0.05 Immature Gran # (Auto) 0.05 Sodium 140 Potassium 3.8 Chloride 105 Carbon Dioxide 29 Anion Gap 6 BUN 8 Creatinine 1.13 Est Cr Clr Drug Dosing 125.9 Est GFR ( Amer) 102.7 Est GFR (Non-Af Amer) 88.6 BUN/Creatinine Ratio 7.1 L Glucose 113 H Calcium 9.0 Total Bilirubin 0.5 AST 18 ALT 19 Alkaline Phosphatase 55 Total Protein 6.5 Albumin 4.3 Globulin 2.2 L Albumin/Globulin Ratio 2.0 TSH 2.166 Urine Color Urine Appearance Urine pH Ur Specific [place] Urine Protein Urine Glucose (UA) Urine Ketones Urine Blood Urine Nitrite Urine Bilirubin Urine Urobilinogen Ur Leukocyte Esterase Salicylates Urine Opiates Screen Ur Methadone, Qual Acetaminophen Urine Barbiturates Ur Phencyclidine (PCP) U Amphetamin/Meth Scrn MDMA (Ecstasy) Screen U Benzodiazepines Scrn Spalding Ur Cocaine Metabolite U Marijuana (THC) Screen Ethyl Alcohol mg/dL SARS-CoV-2, RNA, NAAT 02/01/23 02/01/23 02/01/23 17:44 17:44 17:44 WBC RBC Hgb Hct MCV MCH MCHC RDW Std Deviation RDW Coeff of Belén Plt Count MPV Immature Gran % (Auto) Neut % (Auto) Lymph % (Auto) Robertson % (Auto) Eos % (Auto) Baso % (Auto) Neut # (Auto) Lymph # (Auto) Robertson # (Auto) Eos # (Auto) Baso # (Auto) Immature Gran # (Auto) Sodium Potassium Chloride Carbon Dioxide Anion Gap BUN Creatinine Est Cr Clr Drug Dosing Est GFR ( Amer) Est GFR (Non-Af Amer) BUN/Creatinine Ratio Glucose Calcium Total Bilirubin AST ALT Alkaline Phosphatase Total Protein Albumin Globulin Albumin/Globulin Ratio TSH Urine Color Urine Appearance Urine pH Ur Specific [place] Urine Protein Urine Glucose (UA) Urine Ketones Urine Blood Urine Nitrite Urine Bilirubin Urine Urobilinogen Ur Leukocyte Esterase Salicylates < 3.0 L Urine Opiates Screen Ur Methadone, Qual Acetaminophen < 3 L Urine Barbiturates Ur Phencyclidine (PCP) U Amphetamin/Meth Scrn MDMA (Ecstasy) Screen U Benzodiazepines Scrn Spalding 0.6 Ur Cocaine Metabolite U Marijuana (THC) Screen Ethyl Alcohol mg/dL < 10.0 SARS-CoV-2, RNA, NAAT 02/03/23 02/06/23 02/12/23 07:51 07:40 07:40 WBC 10.30 RBC 5.92 Hgb 16.3 Hct 49.8 MCV 84.1 MCH 27.5 MCHC 32.7 RDW Std Deviation 43.3 RDW Coeff of Belén 14.2 Plt Count 334 MPV 9.8 Immature Gran % (Auto) 1.2 Neut % (Auto) 57.6 Lymph % (Auto) 28.4 Robertson % (Auto) 8.3 Eos % (Auto) 3.4 Baso % (Auto) 1.1 Neut # (Auto) 5.93 Lymph # (Auto) 2.93 Robertson # (Auto) 0.86 H Eos # (Auto) 0.35 Baso # (Auto) 0.11 Immature Gran # (Auto) 0.12 Sodium Potassium Chloride Carbon Dioxide Anion Gap BUN Creatinine Est Cr Clr Drug Dosing Est GFR ( Amer) Est GFR (Non-Af Amer) BUN/Creatinine Ratio Glucose Calcium Total Bilirubin AST ALT Alkaline Phosphatase Total Protein Albumin Globulin Albumin/Globulin Ratio TSH Urine Color Urine Appearance Urine pH Ur Specific [place] Urine Protein Urine Glucose (UA) Urine Ketones Urine Blood Urine Nitrite Urine Bilirubin Urine Urobilinogen Ur Leukocyte Esterase Salicylates Urine Opiates Screen Ur Methadone, Qual Acetaminophen Urine Barbiturates Ur Phencyclidine (PCP) U Amphetamin/Meth Scrn MDMA (Ecstasy) Screen U Benzodiazepines Scrn Spalding 0.4 L 0.9 Ur Cocaine Metabolite U Marijuana (THC) Screen Ethyl Alcohol mg/dL SARS-CoV-2, RNA, NAAT 02/13/23 02/15/23 02/15/23 08:06 10:12 10:12 WBC 10.77 11.07 H RBC 5.62 5.96 Hgb 15.7 16.7 Hct 46.9 51.0 MCV 83.5 85.6 MCH 27.9 28.0 MCHC 33.5 32.7 RDW Std Deviation 41.8 43.1 RDW Coeff of Belén 13.7 13.8 Plt Count 304 335 MPV 9.9 9.8 Immature Gran % (Auto) 1.5 1.4 Neut % (Auto) 60.5 66.1 Lymph % (Auto) 25.0 21.8 Robertson % (Auto) 8.4 6.9 Eos % (Auto) 3.8 2.8 Baso % (Auto) 0.8 1.0 Neut # (Auto) 6.52 H 7.32 H Lymph # (Auto) 2.69 2.41 Robertson # (Auto) 0.90 H 0.76 H Eos # (Auto) 0.41 0.31 Baso # (Auto) 0.09 0.11 Immature Gran # (Auto) 0.16 0.16 Sodium 141 Potassium 4.1 Chloride 105 Carbon Dioxide 32 Anion Gap 4 BUN 9 Creatinine 1.11 Est Cr Clr Drug Dosing 126.5 Est GFR ( Amer) 104.9 Est GFR (Non-Af Amer) 90.5 BUN/Creatinine Ratio 8.1 L Glucose 106 H Calcium 9.5 Total Bilirubin 0.6 AST 19 ALT 31 Alkaline Phosphatase 60 Total Protein 6.7 Albumin 4.4 Globulin 2.3 L Albumin/Globulin Ratio 1.9 TSH Urine Color Urine Appearance Urine pH Ur Specific [place] Urine Protein Urine Glucose (UA) Urine Ketones Urine Blood Urine Nitrite Urine Bilirubin Urine Urobilinogen Ur Leukocyte Esterase Salicylates Urine Opiates Screen Ur Methadone, Qual Acetaminophen Urine Barbiturates Ur Phencyclidine (PCP) U Amphetamin/Meth Scrn MDMA (Ecstasy) Screen U Benzodiazepines Scrn Spalding Ur Cocaine Metabolite U Marijuana (THC) Screen Ethyl Alcohol mg/dL SARS-CoV-2, RNA, NAAT 02/20/23 08:54 WBC 11.34 H RBC 5.70 Hgb 15.6 Hct 47.3 MCV 83.0 MCH 27.4 MCHC 33.0 RDW Std Deviation 41.6 RDW Coeff of Eblén 13.8 Plt Count 321 MPV 9.9 Immature Gran % (Auto) 1.8 Neut % (Auto) 63.6 Lymph % (Auto) 21.5 Robertson % (Auto) 8.6 Eos % (Auto) 3.7 Baso % (Auto) 0.8 Neut # (Auto) 7.21 H Lymph # (Auto) 2.44 Robertson # (Auto) 0.98 H Eos # (Auto) 0.42 Baso # (Auto) 0.09 Immature Gran # (Auto) 0.20 Sodium Potassium Chloride Carbon Dioxide Anion Gap BUN Creatinine Est Cr Clr Drug Dosing Est GFR ( Amer) Est GFR (Non-Af Amer) BUN/Creatinine Ratio Glucose Calcium Total Bilirubin AST ALT Alkaline Phosphatase Total Protein Albumin Globulin Albumin/Globulin Ratio TSH Urine Color Urine Appearance Urine pH Ur Specific [place] Urine Protein Urine Glucose (UA) Urine Ketones Urine Blood Urine Nitrite Urine Bilirubin Urine Urobilinogen Ur Leukocyte Esterase Salicylates Urine Opiates Screen Ur Methadone, Qual Acetaminophen Urine Barbiturates Ur Phencyclidine (PCP) U Amphetamin/Meth Scrn MDMA (Ecstasy) Screen U Benzodiazepines Scrn Spalding Ur Cocaine Metabolite U Marijuana (THC) Screen Ethyl Alcohol mg/dL SARS-CoV-2, RNA, NAAT Hospital Course (1) Schizoaffective disorder, bipolar type: Plan 02/22/2023: Continue current medications and tx plan. 02/21/2023: Continue current medications and tx plan. 02/20/2023: Continue current medications and tx plan. Begin to explore disposition planning options. 02/19/2023: Continue current medications and tx plan. 02/18/2023: Continue current medications and tx plan. 02/17/2023: * continue clozapine 100 mg QAM & 250 mg QHS * continue lithium 600 mg QAM & 900 mg QHS * continue citalopram 20 mg daily. * continue lorazepam 1 mg Q6 Hr PRN * A private room remains medically necessary for the safety of self and others d ue to pt's restlessness and paranoia 02/16/2023: * continue clozapine 100 mg QAM & 250 mg QHS * continue lithium 600 mg QAM & 900 mg QHS * continue citalopram 20 mg daily. * continue lorazepam 1 mg Q6 Hr PRN * A private room remains medically necessary for the safety of self and others due to pt's restlessness and paranoia 02/15/2023: * Labs today: CBC with differential, CMP * Monitor fluid intake * continue clozapine 100 mg QAM & 250 mg QHS * continue lithium 600 mg QAM & 900 mg QHS * continue citalopram 20 mg daily. * continue lorazepam 1 mg Q6 Hr PRN * A private room remains medically necessary for the safety of self and others due to pt's significant irritability 02/14/2023: * continue clozapine 100 mg QAM & 250 mg QHS * continue citalopram 20 mg daily. * stop lorazepam 0.5 mg TID due to refusal of scheduled doses * continue lorazepam 1 mg Q6 Hr PRN * continue lithium 600 mg QAM & 900 mg QHS * A private room remains medically necessary for the safety of self and others due to pt's significant irritability 02/13/2023: * continue clozapine 100 mg QAM & 250 mg QHS * continue citalopram 20 mg daily. * continue scheduled lorazepam 0.5 mg TID; consider further titration as tolerated * continue lithium 600 mg QAM & 900 mg QHS * A private room remains medically necessary for the safety of self and others due to pt's significant irritability 02/12/2023: * Revert clozapine back to previous dose (at which therapeutic blood level was established) of 100 mg QAM & 250 mg QHS * Start trial of citalopram 10 mg daily, titrate rapidly to 20 mg daily. * Start scheduled lorazepam 0.5 mg TID * Continue lithium 600 mg QAM & 900 mg QHS given lithium level this AM of 0.9 mmol/L * A private room remains medically necessary for the safety of self and others due to pt's significant irritability : * Continue clozapine 300 mg QHS * Continue lithium 600 mg QAM & 900 mg QHS * Spalding level in AM (too late to obtain trough level today) * A private room remains medically necessary for the safety of self and others due to pt's significant irritability 02/10/2023: Continue current medications and tx plan. 02/09/2023: Increase clozapine to 300mg HS. 02/08/2023: Continue current medications and tx plan. Recheck Li level on 02/11/2023. 02/07/2023: Continue current medications and tx plan. 02/06/2023: Increase Lithobid from 600mg BID to 600mg qAM and 900mg HS. 02/05/2023: Continue current medications and tx plan. 02/04/2023: Consider SSRI trial once [place] records can be reviewed and once he becomes willing to consider medication adjustments. 02/03/23: The patient is not willing to discuss medication changes and will not accept Ativan or Haldol prns at this time. Records from [place] pending. 02/02/23: The patient was admitted to the [facility] ([facility] mental health unit) on q15 min checks (behavioral with suicide precautions) for safety. The patient will participate in group, recreational, and milieu therapies and will be offered additional individual and family sessions as clinically appropriate. Will check orthostatics and hold am clozaril with plan to shift dosing more toward hs. Spalding level in am, does not appear toxic but his level was not a true trough. Mental Health & Subst Abuse Tx Psychiatrist Name of Psychiatrist: Kody Rogers Psychiatrist's Date Of Appointment With Psychiatric Provider: 03/01/23 Time of Appointment with Psychiatrist: 1 PM Psychiatric Appointment Comment: [address], [place] [address] Therapist Name of Therapist: Cheko Zamarripa Therapist's Date of Therapist Appointment: 02/28/23 Time of Therapist Appointment: 1 PM Therapy Appointment Comment: [address], [address], [place] [address] Kids Club Attendant Name of Kids Club Attendant: Rose @ [employer] [facility] Phone Number for Kids Club Attendant: [phone] Date of Appointment with Kids Club Attendant: 03/02/23 Time of Appointment with Kids Club Attendant: 10am Case Management Appointment Comment: Please resume your normal schedule. Post Discharge Appointments Primary Care Physician Name Of Family Doctor/PCP: Kody Dunn Primary Care Time of Appointment with PCP: please follow up as needed Provider Appointment Comment: [address], [place] [address] Other #2: Name of Aftercare Appointment: [facility]- Crisis Peer Phone Number of Aftercare Appointment: [phone] Time of Aftercare Appointment: referral has been sent- please expect direct contact Aftercare Appointment Comment: olivia Rose updated about this status Contact Information Discharge Discharge [address]: [address] [place] [id number] Discharge Plan Discharge Items Patient Disposition: Home - Self-Care Reason For Visit: SCHIZOPHRENIA Discharge Diagnosis: Schizoaffective Disorder, current depressive episode Activity: Resume your previous activity Non-emergency contact: Primary Care Provider, Psychiatrist and Wired Sweatband Cutter Call non-emergency contact if: you have any medication questions and your symptoms worsen Follow-up/Referrals: Brooke Dunn DO [Primary Care Provider] - Diet: Regular Addtl Attending Provider Instructions: SPECIAL CARE INSTRUCTIONS: 1. Follow through with your scheduled aftercare appointments. If unable to keep an appointment, please call to reschedule. 2. Take your medication only as prescribed. Medication should not be changed or stopped without the approval of your doctor. In the event of worsening symptoms or concerns about side effects, contact your doctor immediately. 3. Utilize new healthy coping skills, anger management skills, and stress management skills learned during your hospitalization. Journal feelings and process them with a support person. Identify stressors or situations that may result in relapse, deterioration or inappropriate behaviors and develop a plan to deal with those issues. 4. If your coping skills are ineffective and you are in crisis, contact your outpatient providers for direction. If unable to reach your providers, please call the [facility] CRISIS LINE AT , go to the [facility] walk-in center at [address], [address], [place], or go to the closest Emergency Room. 5. Avoid alcohol and un-prescribed drugs. 6. You have been provided with the Mental Health Advance Directives Pamphlet for your review. 7. Your condition is stable for discharge to outpatient level of care, but recovery is an ongoing process. Ifthoughts to harm yourself or others return, follow the safety plan developed during your stay. Planning for a safe return home includes securing weapons. Our treatment team recommends weaponsbe removed from the home until your outpatient provider reassesses your progress. In rare cases where the items themselvescannot be removed, guns and ammunitionshould be secured separatelyand keys stored by a reliable personoutside of the home. If you were admitted on an involuntary commitment, the police or other legal authorities may be involved in this process. AFTERCARE APPOINTMENTS: * Please call your insurance company prior to your scheduled appointment to confirm your aftercare providers are covered. Take your insurance information to your appointments. WHO TO CALL AND WHEN: Medical Emergencies: For questions or emergencies related to your hospital stay, please contact the Inpatient Behavioral Health Unit at [phone]. A peanut shaker is on-call 01/05 for the Behavioral Health Unit for emergencies National Crisis Hotline: 988 At any time you feel your situation is an emergency, you may also call 911 immediately. Pending Studies at Discharge: No Stand-Alone Forms: My [facility] Medications and DC Order Prescriptions: New citalopram 20 mg Tablet 20 mg PO QAM 30 Days Qty: 30 0RF clozapine 100 mg Tablet 100 mg PO DAILY 30 Days Qty: 30 0RF clozapine 100 mg Tablet 250 mg PO HS 30 Days Qty: 75 0RF lithium carbonate 300 mg Tablet Extended Release 600 mg PO QAM 30 Days Qty: 60 0RF lithium carbonate 450 mg Tablet Extended Release 900 mg PO HS 30 Days Qty: 60 0RF docusate sodium 250 mg capsule 250 mg PO DAILY PRN (Reason: constipation) 30 Days Qty: 30 0RF polyethylene glycol 3350 [Miralax] 17 gram Powder In Packet 17 g PO DAILY PRN (Reason: constipation ) 30 Days Qty: 30 0RF Discontinued lithium carbonate 600 mg Capsule 600 mg PO BID clozapine 50 mg Tablet 50 mg PO DAILY clozapine [Clozaril] 200 mg Tablet 200 mg PO HS Discharge Orders: Discharge Order (Routine); Ordered 02/23/23 Ordered By: Michela Bloom Admission Data Admit Date/Time: 02/02/23 08:59 Attending Provider: Michela Bloom Admit Provider: Danica Elliott Primary Care Provider: Brooke Dunn Other Interventions: Discharge Summary Assessment (RN) Last Done: 02/23/23 09:40 PSY Interdisciplinary Discharge Planning Last Done: 02/23/23 09:48 Coding Level of Care Code 68021 D/C day mgmt > 30 min Diagnoses Schizoaffective disorder, bipolar type F25.0 Time Spent (min) 45
== END 2023-02-23 10:00 | disposition home or self-care (01) | DRG 885 ==
LOC: ED 16:52 → SUATTDRO 02-02 08:59 → 3S 02-02 08:59

== ENCOUNTER 2023-03-13 12:05 | Inpatient (IN) ==
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
[2023-03-13 13:10] LABS: Basophils # (auto) 0.08 K/uL (0-0.2); Basophils % (auto) 0.8 %; Eosinophils # (auto) 0.11 K/uL (0-0.50); Eosinophils % (auto) 1.1 %; Hematocrit (blood only) 48.1 % (42.0-52.0); Hemoglobin 16.2 g/dl (14.0-18.0); Immature Granulocytes # (auto) 0.05 K/uL (0.01-0.20); Immature Granulocytes % (auto) 0.5 %; Lymphocytes # (auto) 1.76 K/uL (1.2-3.4); Lymphocytes % (auto) 17.5 %; Mean Corpuscular Hgb Conc 33.7 g/dL (32.0-36.0); Mean Corpuscular Volume 83.2 fL (80.0-100.0); Mean Platelet Volume 10.4 fL (9.4-12.4); Monocytes # (auto) 0.77 K/uL (0.11-0.59); Monocytes % (auto) 7.7 %; Neutrophils # (auto) 7.29 K/uL (1.40-6.50); Neutrophils % (auto) 72.4 %; Platelet Count 347 K/uL (130-400); RDW Coefficient of Variation 13.2 % (11.5-14.5); RDW Standard Deviation 39.7 fL (36.4-46.3); Red Blood Count 5.78 M/uL (4.70-6.10); White Blood Count 10.06 K/ul (4.8-10.8)
[2023-03-13 13:20] LABS: Appearance Urine Clear (Clear); Bacteria Urine Automated Negative (Negative); Bilirubin Urine Negative (Negative); Blood Urine Negative (Negative); Cast Urine Automated 0 /lpf (0-5); Color Urine Yellow; Glucose Urine UA Negative (Negative); Ketones Urine Negative (Negative); Leukocyte Esterase Urine Trace (Negative); Nitrite Urine Negative (Negative); Protein Urine Negative (Negative); RBC Urine Automated 0-4 /hpf (0-4); Specific Gravity Urine 1.011 (1.000-1.030); Urobilinogen Urine Negative (Negative); pH Urine 7.5 (4.5-7.5)
[2023-03-13 13:29] LABS: Albumin Level 4.8 gm/dl (3.4-5.0); Bilirubin,Total 0.7 mg/dl (0.2-1.0); Calcium 9.9 mg/dl (8.6-10.3); Potassium 4.1 mmol/L (3.5-5.1)
[2023-03-13 13:34] LABS: Acetaminophen < 3 ug/ml (10-30); Salicylate < 3.0 mg/dl (3.0-30)
[2023-03-13 13:35] LABS: Albumin Globulin Ratio 1.8 (0.9-2); BUN Creatinine Ratio 7.5 (10-20); Creatinine Clr Calc Pharmacy 132.2 ml/min; Est GFR (African American) 109.7 ml/min; Est GFR (Non-African American) 94.6 ml/min; Globulin 2.6 gm/dl (2.5-4.0); Total Protein 7.4 gm/dl (6.0-8.3)
[2023-03-13 13:36] LABS: Amphetamines+Metham, Urine Neg (Neg); Barbiturates, Urine Neg (Neg); Benzodiazepine, Urine Neg (Neg); Cocaine, Urine Neg (Neg); MDMA (Ecstacy), Urine Neg (Neg); Methadone, Urine Neg (Neg); Opiate, Urine Neg (Neg); Phencyclidine, Urine Neg (Neg)
[2023-03-13] MEDS ORDERED: hydrOXYzine HCl 25 MG TAB PO PRN ×2 (15:04)
[2023-03-13] MEDS ORDERED: ACETAMINOPHEN 325 MG TAB PO PRN (15:04)
[2023-03-13] MEDS ORDERED: SODIUM CHLORIDE 0.65% NA SOLN 45 ML (OCEAN) PRN (15:04)
[2023-03-13] MEDS ORDERED: BISMUTH SUBSALICYLATE LIQD 236 ML PO PRN (15:04)
[2023-03-13] MEDS ORDERED: ALUMINUM/MAGNESIUM SUSP 30 ML UDC PO PRN (15:04)
[2023-03-13] MEDS ORDERED: MAGNESIUM HYDROXIDE SUSP 30 ML UDC PO PRN (15:04)
[2023-03-13] MEDS ORDERED: POLYETHYLENE (MIRALAX) 17 GM PACK PO PRN (16:18)
[2023-03-13] MEDS ORDERED: DOCUSATE CALCIUM 240 MG CAPSULE PO PRN (16:40)
[2023-03-13] MEDS: cloZAPine 100 MG TAB PO SCH ×2 (21:05→21:06)
[2023-03-13] MEDS: cloZAPine 25 MG TAB PO SCH (21:06)
[2023-03-13] MEDS: LITHIUM CARBONATE 450 MG TABCR PO SCH (21:07)
[2023-03-14] MEDS ORDERED: CITALOPRAM 20 MG TAB PO SCH (09:00)
--- NOTE | 2023-03-14 09:05 | History & Physical ---
Date of Service March 14, 2023 Impression / Recommendations Impression 27 y/o M resident of [facility] with exacerbation Schizoaffective Disorder, Bipolar Type due to not taking medications. (1) Schizoaffective disorder, bipolar type: Plan The patient was admitted to the [facility] ([facility]) on q15 min checks (behavioral with suicide precautions) for safety. The patient will participate in group, recreational, and milieu therapies and will be offered additional individual and family sessions as clinically appropriate. Pt was recently started on aripiprazole lauroxil. Since his record indicates a failed trial of oral aripiprazole in the past, I will be circumspect about discontinuing clozapine at this time. * lithium level (pending at this time) * resume LiCO3 600 mg QAM & 900 mg QHS * resume clozapine 100 mg QAM & 250 mg QHS * discontinue (by not resuming) citalopram due to possibility it may increase risk of mood cycling and to reduce burden of oral meds he must take at home * continue aripiprazole lauroxil 400 mg IM monthly, next due 09 April 2023 Inventory Assets Strengths: voluntary, intelligent Needs: safety and stabilization, medication adjustment Suicide Risk Level Suicide Risk Level: Moderate (q15 min suicide checks) Suicide Risk Level Comments: has chronic suicidal thoughts on which he's never acted Risk Factors Assessment Male: Yes : Yes Do You Have Access To A Gun?: No Health Problems: No Mental Health Diagnoses: Yes Substance Use Disorders: No Previous Attempt: No Family History of Suicide: No Previous Psychiatric Hospitalization: Yes Hopelessness: No Protective Factors Assessment Employed: No Good Rapport with Provider: Yes Psychiatric History Identifying Data NASEEM MCGEE is a 27-year-old M who currently lives in [facility], has a history of Schizoaffective Disorder, Bipolar Type, and was admitted on 03/13/23 14:14 on a 201 voluntary commitment for susanne. Chief Complaint "I'm manic this time". History of Present Illness 27 y/o man familiar to this service from 3 previous admissions in the last 4 months. He appears to have stopped taking most or all of his medications because he "was really distracted by the voices" and because he just has "a preference not to take them". He was just stared on aripiprazole lauroxil a few days prior to presentation. He reports thoughts of "jumping into traffic" (a longstanding theme, though he has never attempted suicide) and racing thoughts in addition to the chronic voices he hears commenting on his thoughts and actions. Past Psychiatric History Current Psychiatric Diagnosis: Schizoaffective Disorder, Bipolar Type Previous Psych Admissions: numerous, including 3 here this year as well as to the [facility] and several to [place] Do You Have Access To A Gun?: No History of Previous Suicide Attempt: No Past Medication Trials: many apparent trials of antipsychotics have failed with clozapine appearing to work (when taken) Allergies Allergy/AdvReac Type Severity Reaction Status Date / Time No Known Allergies Allergy Verified 12/20/22 12:07 Home Medications Medication Instructions Recorded Confirmed Type citalopram 20 mg tablet 20 mg PO QAM schizoaffective 02/22/23 03/13/23 Rx disorder depression 30 days #30 tabs clozapine 100 mg tablet 100 mg PO DAILY schizoaffective 02/22/23 03/13/23 Rx disorder 30 days #30 tabs docusate sodium 250 mg capsule 250 mg PO DAILY PRN constipation 02/22/23 03/13/23 Rx 30 days #30 caps lithium carbonate 300 mg 600 mg PO QAM schizoaffective 02/22/23 03/13/23 Rx tablet,extended release disorder 30 days #60 tabs lithium carbonate 450 mg 900 mg PO HS schizoaffective 02/22/23 03/13/23 Rx tablet,extended release disorder 30 days #60 tabs polyethylene glycol 3350 17 gram 17 g PO DAILY PRN constipation 30 02/22/23 03/13/23 Rx oral powder packet (Miralax) days #30 ea aripiprazole 400 mg suspension, 400 mg IM MONTHLY schizoaffective 03/13/23 03/13/23 History extended rel.intramuscular syringe disorder (Poly Bowman) aripiprazole 5 mg tablet 5 mg PO DAILY 03/13/23 03/13/23 History clozapine 200 mg tablet 200 mg PO HS 03/13/23 03/13/23 History clozapine 50 mg tablet 50 mg PO HS 03/13/23 03/13/23 History Family History Family History of: Doesn't Know Alcohol History Hx of Alcohol Use Over the Past 12 Months: No AUDIT Total Score: 0 Smoking Use Have You Smoked or Used Tobacco Products in the Last 30 Days: No Smoking Status: Never smoker Substance History Hx of Prescription Med Misuse Over the Past 12 Months: No Hx of Over the Counter Med Misuse Over the Past 12 Months: No Hx of Inhalent Misuse Over the Past 12 Months: No Hx of Organic Substance Use Over the Past 12 Months: No Hx of Illegal Substances/Street Drug Use Over Past 12 Months: No Problems as a Result of Past Substance Use: None Identified Personal History Living Arrangements: Personal Care Facility Living Arrangements Comments: [facility] Highest Grade Completed: College Highest Grade Completed Comment: [employer] from [employer] Marital Status: Single Number Of Children: 0 Beliefs That Will Affect Care: None Hx Legal Problems: No Hx Traumatic Life Events: No Patient History Medical History Bipolar disorder Lab test negative for COVID-19 virus Suicidal ideation Surgical History No pertinent past surgical history Family History Other No pertinent family history in first degree relatives Social History Smoking Status: Never smoker Preferred Language: Indian Communication Ability: Effective Health And Physical Education Professor Required: No Beliefs That Will Affect Care: None Feels Safe at Home: Yes Gender Identity: Male Assistive Devices: None Review of Systems Psychiatric: as per Subjective / HPI Physical Exam Psychiatric: Orientation: alert, oriented to person, oriented to place, oriented to time and cooperative Apperance: appropriately dressed and appropriately groomed Eye Contact: good eye contact Motor Behavior: + psychomotor agitation Speech: normal rate/rhythm/volume of speech Affect: + constricted affect elevated Thought Process: + tangential thought process racing thoughts Thought Content: + cognitive distortions Suicidal Thoughts: denies suicidal intent; + reports suicidal thoughts (chronic) and + reports suicidal plan (jumping into traffic) Homicidal Thoughts: denies homicidal thoughts Hallucinations: + auditory hallucinations; no visual hallucinations and no tactile hallucinations Cognition: recent memory grossly intact, remote memory grossly intact, attention grossly intact and language grossly intact Estimated Intelligence: average estimated intelligence Insight: + fair insight Judgment: + poor judgement Vital Signs (Past 24 Hours): Last Vital Signs Temp 36.7 C 03/14/23 06:29 Pulse 89 03/14/23 06:30 Resp 16 03/14/23 06:29 BP 113/67 03/14/23 06:30 Pulse Ox 98 03/13/23 14:44 O2 Del Method Room Air 03/13/23 14:44 Exam Statement: A physical exam was performed in the ED for the purposes of medical clearance. I accept that physical as correct and adequate for the purposes of the inpatient physical exam. Results & Data ([facility]) Laboratory Results Laboratory Results - last 24 hr 03/13/23 03/13/23 03/13/23 12:30 12:30 12:30 WBC 10.06 RBC 5.78 Hgb 16.2 Hct 48.1 MCV 83.2 MCH 28.0 MCHC 33.7 RDW Std Deviation 39.7 RDW Coeff of Belén 13.2 Plt Count 347 MPV 10.4 Immature Gran % (Auto) 0.5 Neut % (Auto) 72.4 Lymph % (Auto) 17.5 [place] % (Auto) 7.7 Eos % (Auto) 1.1 Baso % (Auto) 0.8 Neut # (Auto) 7.29 H Lymph # (Auto) 1.76 [place] # (Auto) 0.77 H Eos # (Auto) 0.11 Baso # (Auto) 0.08 Immature Gran # (Auto) 0.05 Sodium 140 Potassium 4.1 Chloride 105 Carbon Dioxide 29 Anion Gap 6 BUN 8 Creatinine 1.07 Est Cr Clr Drug Dosing 132.2 Est GFR ( Amer) 109.7 Est GFR (Non-Af Amer) 94.6 BUN/Creatinine Ratio 7.5 L Glucose 94 Calcium 9.9 Total Bilirubin 0.7 AST 24 ALT 28 Alkaline Phosphatase 59 Total Protein 7.4 Albumin 4.8 Globulin 2.6 Albumin/Globulin Ratio 1.8 TSH 3.498 Urine Color Urine Appearance Urine pH Ur Specific [place] Urine Protein Urine Glucose (UA) Urine Ketones Urine Blood Urine Nitrite Urine Bilirubin Urine Urobilinogen Ur Leukocyte Esterase Urine WBC (Auto) Urine RBC (Auto) U Hyaline Cast (Auto) U Epithel Cells (Auto) Urine Bacteria (Auto) Salicylates Urine Opiates Screen Ur Methadone, Qual Acetaminophen Urine Barbiturates Ur Phencyclidine (PCP) U Amphetamin/Meth Scrn MDMA (Ecstasy) Screen U Benzodiazepines Scrn Ur Cocaine Metabolite U Marijuana (THC) Screen Ethyl Alcohol mg/dL SARS-CoV-2, RNA, NAAT 03/13/23 03/13/23 03/13/23 12:30 12:30 12:32 WBC RBC Hgb Hct MCV MCH MCHC RDW Std Deviation RDW Coeff of Belén Plt Count MPV Immature Gran % (Auto) Neut % (Auto) Lymph % (Auto) [place] % (Auto) Eos % (Auto) Baso % (Auto) Neut # (Auto) Lymph # (Auto) [place] # (Auto) Eos # (Auto) Baso # (Auto) Immature Gran # (Auto) Sodium Potassium Chloride Carbon Dioxide Anion Gap BUN Creatinine Est Cr Clr Drug Dosing Est GFR ( Amer) Est GFR (Non-Af Amer) BUN/Creatinine Ratio Glucose Calcium Total Bilirubin AST ALT Alkaline Phosphatase Total Protein Albumin Globulin Albumin/Globulin Ratio TSH Urine Color Yellow Urine Appearance Clear Urine pH 7.5 Ur Specific [place] 1.011 Urine Protein Negative Urine Glucose (UA) Negative Urine Ketones Negative Urine Blood Negative Urine Nitrite Negative Urine Bilirubin Negative Urine Urobilinogen Negative Ur Leukocyte Esterase Trace H Urine WBC (Auto) 1-5 Urine RBC (Auto) 0-4 U Hyaline Cast (Auto) 0 U Epithel Cells (Auto) 5-10 H Urine Bacteria (Auto) Negative Salicylates < 3.0 L Urine Opiates Screen Ur Methadone, Qual Acetaminophen < 3 L Urine Barbiturates Ur Phencyclidine (PCP) U Amphetamin/Meth Scrn MDMA (Ecstasy) Screen U Benzodiazepines Scrn Ur Cocaine Metabolite U Marijuana (THC) Screen Ethyl Alcohol mg/dL < 10.0 SARS-CoV-2, RNA, NAAT 03/13/23 03/13/23 12:32 12:32 WBC RBC Hgb Hct MCV MCH MCHC RDW Std Deviation RDW Coeff of Belén Plt Count MPV Immature Gran % (Auto) Neut % (Auto) Lymph % (Auto) [place] % (Auto) Eos % (Auto) Baso % (Auto) Neut # (Auto) Lymph # (Auto) [place] # (Auto) Eos # (Auto) Baso # (Auto) Immature Gran # (Auto) Sodium Potassium Chloride Carbon Dioxide Anion Gap BUN Creatinine Est Cr Clr Drug Dosing Est GFR ( Amer) Est GFR (Non-Af Amer) BUN/Creatinine Ratio Glucose Calcium Total Bilirubin AST ALT Alkaline Phosphatase Total Protein Albumin Globulin Albumin/Globulin Ratio TSH Urine Color Urine Appearance Urine pH Ur Specific [place] Urine Protein Urine Glucose (UA) Urine Ketones Urine Blood Urine Nitrite Urine Bilirubin Urine Urobilinogen Ur Leukocyte Esterase Urine WBC (Auto) Urine RBC (Auto) U Hyaline Cast (Auto) U Epithel Cells (Auto) Urine Bacteria (Auto) Salicylates Urine Opiates Screen Neg Ur Methadone, Qual Neg Acetaminophen Urine Barbiturates Neg Ur Phencyclidine (PCP) Neg U Amphetamin/Meth Scrn Neg MDMA (Ecstasy) Screen Neg U Benzodiazepines Scrn Neg Ur Cocaine Metabolite Neg U Marijuana (THC) Screen Neg Ethyl Alcohol mg/dL SARS-CoV-2, RNA, NAAT NEGATIVE Current Inpatient Medications Current Inpatient Medications: Current Inpatient Medications Acetaminophen (Acetaminophen 325 Mg Tab) 650 mg PO Q4H PRN PRN Reason: Headache or Minor Fever Stop: 04/12/23 15:03 Al Hydrox/Mg Hydrox/Simethicone (Aluminum/Magnesium Susp 30 Ml Udc) 30 ml PO Q4H PRN PRN Reason: GI Upset Stop: 04/12/23 15:03 Aripiprazole (Aripiprazole 5 Mg Tab) 5 mg PO DAILY [facility] Stop: 03/24/23 08:59 Aripiprazole (Aripiprazole 400 Mg Pre-Filled Syringe) 400 mg IM Q30D VIVIAN Stop: 05/09/23 07:59 Bismuth Subsalicylate (Bismuth Subsalicylate Liqd 236 Ml) 15 ml PO PRN PRN PRN Reason: Loose Stool Stop: 04/12/23 15:03 Citalopram Hydrobromide (Citalopram 20 Mg Tab) 20 mg PO QAM [facility] Stop: 04/13/23 08:59 Clozapine (Clozapine 25 Mg Tab) 50 mg PO HS VIVIAN Stop: 04/12/23 21:59 Last Admin: 03/13/23 21:06 Dose: 50 mg Clozapine (Clozapine 100 Mg Tab) 200 mg PO HS [facility] Stop: 04/12/23 21:59 Last Admin: 03/13/23 21:06 Dose: 200 mg Clozapine (Clozapine 100 Mg Tab) 100 mg PO DAILY VIVIAN Stop: 04/13/23 08:59 Last Admin: 03/13/23 21:05 Dose: 100 mg Docusate Calcium (Docusate Calcium 240 Mg Capsule) 240 mg PO DAILY PRN PRN Reason: constipation Stop: 04/12/23 16:39 Hydroxyzine HCl (Hydroxyzine Hcl 25 Mg Tab) 50 mg PO HSZ PRN PRN Reason: Insomnia Stop: 04/12/23 15:03 Hydroxyzine HCl (Hydroxyzine Hcl 25 Mg Tab) 25 mg PO Q4H PRN PRN Reason: Anxiety Stop: 04/12/23 15:03 Chaplin Carbonate (Chaplin Carbonate Slow Rel 300 Mg Tab) 600 mg PO QAM VIVIAN Stop: 04/13/23 08:59 Chaplin Carbonate (Chaplin Carbonate 450 Mg Tabcr) 900 mg PO HS VIVIAN Stop: 04/12/23 21:59 Last Admin: 03/13/23 21:07 Dose: 900 mg Magnesium Hydroxide (Magnesium Hydroxide Susp 30 Ml Udc) 30 ml PO DAILY PRN PRN Reason: Constipation Stop: 04/12/23 15:03 Polyethylene Glycol (Polyethylene (Miralax) 17 Gm Pack) 17 gm PO DAILY PRN PRN Reason: constipation Stop: 04/12/23 16:17 Sodium Chloride (Sodium Chloride 0.65% Na Soln 45 Ml (Dubois)) 1 - 2 sprays NA PRN PRN PRN Reason: Nasal Dryness/Congestion Stop: 04/12/23 15:03
[2023-03-14] MEDS: ARIPiprazole 5 MG TAB PO SCH (11:26)
[2023-03-14] MEDS: LITHIUM CARBONATE SLOW REL 300 MG TAB PO SCH (11:26)
[2023-03-14] MEDS: LITHIUM CARBONATE 450 MG TABCR PO SCH (21:47)
[2023-03-14] MEDS: cloZAPine 25 MG TAB PO SCH (21:47)
[2023-03-14] MEDS: cloZAPine 100 MG TAB PO SCH (21:48)
[2023-03-15] MEDS: cloZAPine 100 MG TAB PO SCH ×2 (08:33→22:01)
[2023-03-15] MEDS: ARIPiprazole 5 MG TAB PO SCH (08:33)
[2023-03-15] MEDS: LITHIUM CARBONATE SLOW REL 300 MG TAB PO SCH (08:33)
--- NOTE | 2023-03-15 09:45 | Psychiatric Progress Note ---
Date of Service March 15, 2023 Impression / Recommendations Impression 27 y/o M resident of [facility] home with exacerbation Schizoaffective Disorder, Bipolar Type due to not taking medications. 03/15/2023: [place] level drawn yesterday was subtherapeutic (or, at best, marginally the rapeutic) at 0.6 mmol/L. Is trying to participate in assessment but is very distracted and is only able to attend to the interaction briefly. Pt has tolerated reinstitution of clozapine and lithium and lithium along with the oral and depot aripiprazole on which he was admitted. Discussed with pt that it's not really likely to make sense to continue clozapine and oral aripiprazole and that the plan should be to eliminate one. He agreed to this. Extensive review of available records undertaken over the course of his 3 most recent admissions here appears strongly to indicate a lack of efficacy with numerous previous antipsychotic trials, including aripiprazole. He was discharge from the [facility] on clozapine, haloperidol, and lithium and did well for an extended period. His recent admissions here all seem to be related to having stopped clozapine or reducing the dose. In the case of the current admission, pt says he was taking all his medications intermittently "for a while" and stopped altogether "several days" ago. A long-acting antipsychotic (JOSHI) would appear to be an ideal solution to nonadherence to an oral medication regimen, but I'm aware of no evidence of a positive response to oral aripiprazole in the past and lack confidence that it will be any more effective in JOSHI form. It also seems clear that in addition to clozapine he requires lithium and, apparently, chacko loperidol (which was discontinued during his November admission). Based on the above, I've discussed with pt my belief that clozapine is very likely the best choice for him, along with lithium and possibly haloperidol. While the haloperidol could be administered in JOSHI form (every 2 weeks), the others would have to be taken orally. They could be consolidated to minimize dose burden. Arguably, lithium should be given as a single daily dose in any event since this, counterintuitively, reduces risk of lithium-induced kidney injury (though at the potential cost of higher risk of GI side effects). Clozapine is already given as a small morning dose with a much larger evening dose; this was done because during a previous admission pt was having hypotensive episodes especially in the morning. In retrospect, this may have been due more to reduced fluid intake while depressed. If were to do consolidate, he'd still have to take quite a few pills (3 clozapine and 5 lithium) every night. It should be noted that I find no evidence that pt has ever refused medication while in hospital and that having someone administer his medications on an outpatient basis might solve this issue. (1) Schizoaffective disorder, bipolar type: Plan The patient was admitted to the [facility] ([facility]) on q15 min checks (behavioral with suicide precautions) for safety. The patient will participate in group, recreational, and milieu therapies and will be offered additional individual and family sessions as clinically appropriate. 03/15/2023: * continue LiCO3 600 mg QAM & 900 mg QHS, consider consolidating to 1500 mg QHS * recheck lithium level in 2 days * continue clozapine 100 mg QAM & 250 mg QHS, consider consolidating to 350 mg QHS * continue aripiprazole lauroxil 400 mg IM monthly, last given 10 March 2023 * stop aripiprazole 5 mg daily 03/14/2023: Pt was recently started on aripiprazole lauroxil. Since his record indicates a failed trial of oral aripiprazole in the past, I will be circumspect about discontinuing clozapine at this time. * continue LiCO3 600 mg QAM & 900 mg QHS * continue clozapine 100 mg QAM & 250 mg QHS for the time being * continue aripiprazole lauroxil 400 mg IM monthly, next due 09 April 2023 * continue aripiprazole 5 mg daily Inventory Assets Strengths: voluntary, intelligent Needs: safety and stabilization, medication adjustment Suicide Risk Level Suicide Risk Level: Moderate (q15 min suicide checks) Suicide Risk Level Comments: has chronic suicidal thoughts on which he's never acted Risk Factors Assessment Male: Yes : Yes Do You Have Access To A Gun?: No Health Problems: No Mental Health Diagnoses: Yes Substance Use Disorders: No Previous Attempt: No Family History of Suicide: No Previous Psychiatric Hospitalization: Yes Hopelessness: No Protective Factors Assessment Employed: No Good Rapport with Provider: Yes Interval History Identifying Information NASEEM MCGEE is a 27-year-old M who currently lives in [facility], has a history of Schizoaffective Disorder, Bipolar Type, and was admitted on 03/13/23 14:14 on a 201 voluntary commitment for susanne. Chief Complaint "I think I'm about the same". Review of Systems Sleep Information Total Hours of Sleep: 6.75 Meal Information Percent Meal Consumed - Breakfast: 0 Percent Meal Consumed - Lunch: 50 Percent Meal Consumed - Dinner: 100 Nutrition Comment: pt. does not typically eat breakfast Subjective Subjective Patient was seen & assessed and interval progress reviewed with in a multidisciplinary team meeting with the treatment team. For details, see the "Impression" section below. Physical Exam Psychiatric Orientation: alert, oriented to person, oriented to place, oriented to time and cooperative Apperance: appropriately dressed and appropriately groomed Eye Contact: good eye contact Motor Behavior: + psychomotor agitation Speech: normal rate/rhythm/volume of speech Affect: + constricted affect Thought Process: + tangential thought process Thought Content: + cognitive distortions Suicidal Thoughts: denies suicidal intent; + reports suicidal thoughts (chronic) and + reports suicidal plan (jumping into traffic) Homicidal Thoughts: denies homicidal thoughts Hallucinations: + auditory hallucinations; no visual hallucinations and no tactile hallucinations Cognition: recent memory grossly intact, remote memory grossly intact, attention grossly intact and language grossly intact Estimated Intelligence: average estimated intelligence Insight: + fair insight Judgment: + poor judgement Vital Signs (Past 24 Hours) Last Vital Signs Temp 36.7 C 03/15/23 06:48 Pulse 88 03/15/23 06:48 Resp 16 03/15/23 06:48 BP 122/73 03/15/23 06:48 Pulse Ox 98 03/13/23 14:44 O2 Del Method Room Air 03/13/23 14:44 Results & Data ([facility]) Laboratory Results Laboratory Results - last 24 hr 03/14/23 09:46 [place] 0.6 Current Inpatient Medications Current Inpatient Medications: Current Inpatient Medications Acetaminophen (Acetaminophen 325 Mg Tab) 650 mg PO Q4H PRN PRN Reason: Headache or Minor Fever Stop: 04/12/23 15:03 Al Hydrox/Mg Hydrox/Simethicone (Aluminum/Magnesium Susp 30 Ml Udc) 30 ml PO Q4H PRN PRN Reason: GI Upset Stop: 04/12/23 15:03 Aripiprazole (Aripiprazole 5 Mg Tab) 5 mg PO DAILY VIVIAN Stop: 03/24/23 08:59 Last Admin: 03/15/23 08:33 Dose: 5 mg Aripiprazole (Aripiprazole 400 Mg Pre-Filled Syringe) 400 mg IM Q30D [facility]IVIAN Stop: 05/09/23 07:59 Bismuth Subsalicylate (Bismuth Subsalicylate Liqd 236 Ml) 15 ml PO PRN PRN PRN Reason: Loose Stool Stop: 04/12/23 15:03 Clozapine (Clozapine 25 Mg Tab) 50 mg PO HS [facility]IVIAN Stop: 04/12/23 21:59 Last Admin: 03/14/23 21:47 Dose: 50 mg Clozapine (Clozapine 100 Mg Tab) 200 mg PO HS [facility]IVIAN Stop: 04/12/23 21:59 Last Admin: 03/14/23 21:48 Dose: 200 mg Clozapine (Clozapine 100 Mg Tab) 100 mg PO DAILY [facility]IVIAN Stop: 04/13/23 08:59 Last Admin: 03/15/23 08:33 Dose: 100 mg Docusate Calcium (Docusate Calcium 240 Mg Capsule) 240 mg PO DAILY PRN PRN Reason: constipation Stop: 04/12/23 16:39 Hydroxyzine HCl (Hydroxyzine Hcl 25 Mg Tab) 50 mg PO HSZ PRN PRN Reason: Insomnia Stop: 04/12/23 15:03 Hydroxyzine HCl (Hydroxyzine Hcl 25 Mg Tab) 25 mg PO Q4H PRN PRN Reason: Anxiety Stop: 04/12/23 15:03 [place] Carbonate ([place] Carbonate Slow Rel 300 Mg Tab) 600 mg PO QAM [facility]IVIAN Stop: 04/13/23 08:59 Last Admin: 03/15/23 08:33 Dose: 600 mg [place] Carbonate ([place] Carbonate 450 Mg Tabcr) 900 mg PO HS [facility]IVIAN Stop: 04/12/23 21:59 Last Admin: 03/14/23 21:47 Dose: 900 mg Magnesium Hydroxide (Magnesium Hydroxide Susp 30 Ml Udc) 30 ml PO DAILY PRN PRN Reason: Constipation Stop: 04/12/23 15:03 Polyethylene Glycol (Polyethylene (Miralax) 17 Gm Pack) 17 gm PO DAILY PRN PRN Reason: constipation Stop: 04/12/23 16:17 Sodium Chloride (Sodium Chloride 0.65% Na Soln 45 Ml ([place])) 1 - 2 sprays NA PRN PRN PRN Reason: Nasal Dryness/Congestion Stop: 04/12/23 15:03 Mental Health & Subst Abuse Tx Psychiatrist Name of Psychiatrist: Kody Rogers Psychiatrist's Time of Appointment with Psychiatrist: Please follow-up as needed. Psychiatric Appointment Comment: [address] [place] [address] Therapist Name of Therapist: [facility] - [facility] Therapist's Therapy Appointment Comment: [address], [address], [place] [address] [employer] Name of [employer]: [employer] [facility] Phone Number for [employer]: [phone] Case Management Appointment Comment: Please resume your normal schedule. Post Discharge Appointments Primary Care Physician Name Of Family Doctor/PCP: Kody [facility] Time of Appointment with PCP: Please follow-up as needed. Provider Appointment Comment: [address] [place] [address] Web User Experience Strategist Name of Web User Experience Strategist: [facility] Peer Phone Number of Web User Experience Strategist: [phone] Web User Experience Strategist Appointment Comment: Please resume your normal schedule. Contact Information Discharge Discharge Address: [address] [place] [id number]
[2023-03-15] MEDS: cloZAPine 25 MG TAB PO SCH (22:01)
[2023-03-15] MEDS: LITHIUM CARBONATE 450 MG TABCR PO SCH (22:01)
[2023-03-16] MEDS: cloZAPine 100 MG TAB PO SCH ×2 (08:30→21:32)
[2023-03-16] MEDS: LITHIUM CARBONATE SLOW REL 300 MG TAB PO SCH (08:30)
[2023-03-16] MEDS: ARIPiprazole 5 MG TAB PO SCH (08:31)
[2023-03-16] MEDS ORDERED: FLUARIX QUADRIVALENT 0.5 ML SYR IM ONE (11:45)
--- NOTE | 2023-03-16 13:33 | XRay Report ---
XR chest 1V not portable HISTORY: 27 years-old Male referral to [facility] acute shortness of breath COMPARISON: None TECHNIQUE: AP view the chest FINDINGS: Cardiomediastinal and hilar silhouettes are within normal limits. No pneumothorax, pleural effusion, airspace consolidation or pulmonary edema. Mild right hemidiaphragmatic elevation. Bones appear gross ly intact. IMPRESSION: No acute process. ACT 112: Negative or not required by law. The above report was generated using voice recognition software. It may contain grammatical, syntax o r spelling errors. Electronically signed by: Michael Mccauley M.D. 03/16/2023 1:31 PM
--- NOTE | 2023-03-16 13:41 | Psychiatric Progress Note ---
Date of Service March 16, 2023 Impression / Recommendations Impression 27 y/o M resident of personal nursing home with exacerbation Schizoaffective Disorder, Bipolar Type due to not taking medications. 03/16/2023: Remains very distracted. Continues to attend groups and to participate as able. Is tolerating current regimen without evidence of adverse effects, including hypotension. Talala level on admission was subtherapeutic, but he'd been missing doses so will recheck level tomorrow before considering any dose adjustment. In hopes that a simplified regimen may improve adherence after his eventual discharge, will consider consolidating lithium to single nightly dose, followed by clozapine. Ordinarily, I'd anticipate a length of stay similar to previous ones. There are 2 factors making this very unlikely. First is the administration just prior to this admission of aripiprazole lauroxil, which should be present without much reduction in level for over a month. This makes it inadvisable to resume haloperidol at this time, even though I suspect aripiprazole will prove ineffe ctive. Second is his not being able to return to his former personal nursing home due to his frequent relapses and his unsafe nocturnal wandering outside the facility. These make a very extended stay likely, exceeding what would be reasonable and appropriate at this level of care. I have completed completed [place] form MH 785 for part 304(c) "involuntary" treatment at the [facility] and a hearing is scheduled for 1100 tomorrow. 03/15/2023: Talala level drawn yesterday was subtherapeutic (or, at best, marginally therapeutic) at 0.6 mmol/L. Is trying to participate in assessment but is very distracted and is only able to attend to the interaction briefly. Pt has tolerated reinstitution of clozapine and lithium and lithium along with the oral and depot aripiprazole on which he was admitted. Discussed with pt that it's not really likely to make sense to continue clozapine and oral aripiprazole and that the plan should be to eliminate one. He agreed to this. Extensive review of available records undertaken over the course of his 3 most recent admissions here appears strongly to indicate a lack of efficacy with numerous previous antipsychotic trials, including aripiprazole. He was discharge from the [facility] on clozapine, haloperidol, and lithium and did well for an extended period. His recent admissions here all seem to be related to having stopped clozapine or reducing the dose. In the case of the current admission, pt says he was taking all his medications intermittently "for a while" and stopped altogether "several days" ago. A long-acting antipsychotic (JOSHI) would appear to be an ideal solution to nonadherence to an oral medication regimen, but I'm aware of no evidence of a positive response to oral aripiprazole in the past and lack confidence that it will be any more effective in JOSHI form. It also seems clear that in addition to clozapine he requires lithium and, apparently, haloperidol (which was discontinued during his November admission). Based on the above, I've discussed with pt my belief that clozapine is very likely the best choice for him, along with lithium and possibly haloperidol. While the haloperidol could be administered in JOSHI form (every 2 weeks), the others would have to be taken orally. They could be consolidated to minimize dose burden. Arguably, lithium should be given as a single daily dose in any event since this, counterintuitively, reduces risk of lithium-induced kidney injury (though at the potential cost of higher risk of GI side effects). Clozapine is already given as a small morning dose with a much larger evening do se; this was done because during a previous admission pt was having hypotensive episodes especially in the morning. In retrospect, this may have been due more to reduced fluid intake while depressed. If were to do consolidate, he'd still have to take quite a few pills (3 clozapine and 5 lithium) every night. It should be noted that I find no evidence that pt has ever refused medication while in hospital and that having someone administer his medications on an outpatient basis might solve this issue. (1) Schizoaffective disorder, bipolar type: Plan The patient was admitted to the [facility] ([facility]) on q15 min checks (behavioral with suicide precautions) for safety. The patient will participate in group, recreational, and milieu therapies and will be offered additional individual and family sessions as clinically appropriate. 03/16/2023: * continue LiCO3 600 mg QAM & 900 mg QHS, consider consolidating to 1500 mg QHS * recheck lithium level tomorrow * continue clozapine 100 mg QAM & 250 mg QHS, consider consolidating to 350 mg QHS * discontinue aripiprazole lauroxil 400 mg IM monthly, last given 10 March 2023 * anticipate adding haloperidol, but at this point that would constitute 3 concurrent antipsychotics * completed [place] form 785 for part 304(c) "involuntary" treatment at the [facility] 03/15/2023: * continue LiCO3 600 mg QAM & 900 mg QHS, consider consolidating to 1500 mg QHS * recheck lithium level in 2 days * continue clozapine 100 mg QAM & 250 mg QHS, consider consolidating to 350 mg QHS * discontinue aripiprazole lauroxil 400 mg IM monthly, last given 10 March 2023 * discontinue aripiprazole 5 mg daily 03/14/2023: Pt was recently started on aripiprazole lauroxil. Since his record indicates a failed trial of oral aripiprazole in the past, I will be circumspect about discontinuing clozapine at this time. * continue LiCO3 600 mg QAM & 900 mg QHS * continue clozapine 100 mg QAM & 250 mg QHS for the time being * continue aripiprazole lauroxil 400 mg IM monthly, next due 09 April 2023 * continue aripiprazole 5 mg daily Inventory Assets Strengths: voluntary, intelligent Needs: safety and stabilization, medication adjustment Suicide Risk Level Suicide Risk Level: Moderate (q15 min suicide checks) Suicide Risk Level Comments: has chronic suicidal thoughts on which he's never acted Risk Factors Assessment Male: Yes : Yes Do You Have Access To A Gun?: No Health Problems: No Mental Health Diagnoses: Yes Substance Use Disorders: No Previous Attempt: No Family History of Suicide: No Previous Psychiatric Hospitalization: Yes Hopelessness: No Protective Factors Assessment Employed: No Good Rapport with Provider: Yes Interval History Identifying Information NASEEM MCGEE is a 27-year-old M who currently lives in [facility], has a history of Schizoaffective Disorder, Bipolar Type, and was admitted on 03/13/23 14:14 on a 201 voluntary commitment for susanne. Chief Complaint "I'm kind of OK". Review of Systems Sleep Information Total Hours of Sleep: 6.5 Meal Information Percent Meal Consumed - Breakfast: 100 Percent Meal Consumed - Lunch: 100 Percent Meal Consumed - Dinner: 100 Nutrition Comment: pt. does not typically eat breakfast Subjective Subjective Patient was seen & assessed and interval progress reviewed in a multidisciplinary team meeting with the treatment team. For details, see the "Impression" section below. Physical Exam Psychiatric Orientation: alert, oriented to person, oriented to place, oriented to time and cooperative Apperance: appropriately dressed and appropriately groomed Eye Contact: good eye contact Motor Behavior: + psychomotor agitation Speech: normal rate/rhythm/volume of speech Affect: + constricted affect Thought Process: + tangential thought process Thought Content: + cognitive distortions Suicidal Thoughts: denies suicidal intent; + reports suicidal thoughts (chronic) and + reports suicidal plan (jumping into traffic) Homicidal Thoughts: denies homicidal thoughts Hallucinations: + auditory hallucinations; no visual hallucinations and no tactile hallucinations Cognition: recent memory grossly intact, remote memory grossly intact, attention grossly intact and language grossly intact Estimated Intelligence: average estimated intelligence Insight: + fair insight Judgment: + poor judgement Vital Signs (Past 24 Hours) Last Vital Signs Temp 36.8 C 03/16/23 06:35 Pulse 92 H 03/16/23 06:35 Resp 16 03/16/23 06:35 BP 124/75 03/16/23 06:35 Pulse Ox 98 03/13/23 14:44 O2 Del Method Room Air 03/13/23 14:44 Results & Data ([facility]) Current Inpatient Medications Current Inpatient Medications: Current Inpatient Medications Acetaminophen (Acetaminophen 325 Mg Tab) 650 mg PO Q4H PRN PRN Reason: Headache or Minor Fever Stop: 04/12/23 15:03 Al Hydrox/Mg Hydrox/Simethicone (Aluminum/Magnesium Susp 30 Ml Udc) 30 ml PO Q4H PRN PRN Reason: GI Upset Stop: 04/12/23 15:03 Aripiprazole (Aripiprazole 400 Mg Pre-Filled Syringe) 400 mg IM Q30D VIVIAN Stop: 05/09/23 07:59 Bismuth Subsalicylate (Bismuth Subsalicylate Liqd 236 Ml) 15 ml PO PRN PRN PRN Reason: Loose Stool Stop: 04/12/23 15:03 Clozapine (Clozapine 25 Mg Tab) 50 mg PO HS VIVIAN Stop: 04/12/23 21:59 Last Admin: 03/15/23 22:01 Dose: 50 mg Clozapine (Clozapine 100 Mg Tab) 200 mg PO HS VIVIAN Stop: 04/12/23 21:59 Last Admin: 03/15/23 22:01 Dose: 200 mg Clozapine (Clozapine 100 Mg Tab) 100 mg PO DAILY VIVIAN Stop: 04/13/23 08:59 Last Admin: 03/16/23 08:30 Dose: 100 mg Docusate Calcium (Docusate Calcium 240 Mg Capsule) 240 mg PO DAILY PRN PRN Reason: constipation Stop: 04/12/23 16:39 Hydroxyzine HCl (Hydroxyzine Hcl 25 Mg Tab) 50 mg PO HSZ PRN PRN Reason: Insomnia Stop: 04/12/23 15:03 Hydroxyzine HCl (Hydroxyzine Hcl 25 Mg Tab) 25 mg PO Q4H PRN PRN Reason: Anxiety Stop: 04/12/23 15:03 Talala Carbonate (Talala Carbonate Slow Rel 300 Mg Tab) 600 mg PO QAM VIVIAN Stop: 04/13/23 08:59 Last Admin: 03/16/23 08:30 Dose: 600 mg Talala Carbonate (Talala Carbonate 450 Mg Tabcr) 900 mg PO HS VIVIAN Stop: 04/12/23 21:59 Last Admin: 03/15/23 22:01 Dose: 900 mg Magnesium Hydroxide (Magnesium Hydroxide Susp 30 Ml Udc) 30 ml PO DAILY PRN PRN Reason: Constipation Stop: 04/12/23 15:03 Polyethylene Glycol (Polyethylene (Miralax) 17 Gm Pack) 17 gm PO DAILY PRN PRN Reason: constipation Stop: 04/12/23 16:17 Sodium Chloride (Sodium Chloride 0.65% Na Soln 45 Ml ([employer])) 1 - 2 sprays NA PRN PRN PRN Reason: Nasal Dryness/Congestion Stop: 04/12/23 15:03 Mental Health & Subst Abuse Tx Psychiatrist Name of Psychiatrist: Kody Rogers Psychiatrist's Time of Appointment with Psychiatrist: Please follow-up as needed. Psychiatric Appointment Comment: [address] [place] [address] Therapist Name of Therapist: [facility] Therapist's Therapy Appointment Comment: [address], [address], [place] [address] Improvement Analyst Name of Improvement Analyst: [facility] Lisseth Rose Phone Number for Improvement Analyst: [phone] Case Management Appointment Comment: Please resume your normal schedule. Post Discharge Appointments Primary Care Physician Name Of Family Doctor/PCP: Kody Dunn [facility] Time of Appointment with PCP: Please follow-up as needed. Provider Appointment Comment: [address] [place] [address] Hand Ii Thermal Cutter Name of Hand Ii Thermal Cutter: [facility] Peer Phone Number of Hand Ii Thermal Cutter: [phone] Hand Ii Thermal Cutter Appointment Comment: Please resume your normal schedule. Contact Information Discharge Discharge Address: [address] [place] [id number]
[2023-03-16] MEDS: LITHIUM CARBONATE 450 MG TABCR PO SCH (21:32)
[2023-03-16] MEDS: cloZAPine 25 MG TAB PO SCH (21:32)
[2023-03-17] MEDS: LITHIUM CARBONATE SLOW REL 300 MG TAB PO SCH (08:32)
[2023-03-17] MEDS: cloZAPine 100 MG TAB PO SCH ×2 (08:32→20:36)
--- NOTE | 2023-03-17 14:15 | Psychiatric Progress Note ---
Date of Service March 17, 2023 Impression / Recommendations Impression 27 y/o M resident of personal alf with exacerbation Schizoaffective Disorder, Bipolar Type due to not taking medications. 03/17/2023: Because pt will certainly require protracted treatment as well as considerable outpatient resources that may not be available in this county, a part 304 hearing for extended involuntary treatment was held and he was committed on this date. Remains very distracted. Continues to attend groups and to participate to a somewhat limited degree. Is tolerating current regimen without evidence of adverse effects, including hypotension. This morning's lithium level was 1.0 mmol/L, so no current reason to adjust the total dose. 03/16/2023: Remains very distracted. Continues to attend groups and to participate as able. Is tolerating current regimen without evidence of adverse effects, including hypotension. Parks level on admission was subtherapeutic, but he'd been missing doses so will recheck level tomorrow before considering any dose adjustment. In hopes that a simplified regimen may improve adherence after his eventual discharge, will consider consolidating lithium to single nightly dose, followed by clozapine. Ordinarily, I'd anticipate a length of stay similar to previous ones. There are 2 factors making this very unlikely. First is the administration just prior to this admission of aripiprazole lauroxil, which should be present without much reduction in level for over a month. This makes it inadvisable to resume haloperidol at this time, even though I suspect aripiprazole will prove ineffective. Second is his not being able to return to his former personal alf due to his frequent relapses and his unsafe nocturnal wandering outside the facility. These make a very extended stay likely, exceeding what would be reasonable and appropriate at this level of care. I have completed completed [place] form MH 785 for part 304(c) "involuntary" treatment at the [facility] and a hearing is scheduled for 1100 tomorrow. 03/15/2023: Parks level drawn yesterday was subtherapeutic (or, at best, marginally therapeutic) at 0.6 mmol/L. Is trying to participate in assessment but is very distracted and is only able to attend to the interaction briefly. Pt has tolerated reinstitution of clozapine and lithium and lithium along with the oral and depot aripiprazole on which he was admitted. Discussed with pt that it's not really likely to make sense to continue clozapine and oral aripiprazole and that the plan should be to eliminate one. He agreed to this. Extensive review of available records undertaken over the course of his 3 most recent admissions here appears strongly to indicate a lack of efficacy with numerous previous antipsychotic trials, including aripiprazole. He was discharge from the [facility] on clozapine, haloperidol, and lithium and did well for an extended period. His recent admissions here all seem to be related to having stopped clozapine or reducing the dose. In the case of the current admission, pt says he was taking all his medications intermittently "for a while" and stopped altogether "several days" ago. A long-acting antipsychotic (JOSHI) would appear to be an ideal solution to nonadherence to an oral medication regimen, but I'm aware of no evidence of a positive response to oral aripiprazole in the past and lack confidence that it will be any more effective in JOSHI form. It also seems clear that in addition to clozapine he requires lithium and, apparently, haloperidol (which was discontinued during his November admission). Based on the above, I've discussed with pt my belief that clozapine is very likely the best choice for him, along with lithium and possibly haloperidol. While the haloperidol could be administered in JOSHI form (every 2 weeks), the others would have to be taken orally. They could be consolidated to minimize dose burden. Arguably, lithium should be given as a single daily dose in any event since this, counterintuitively, reduces risk of lithium-induced kidney injury (though at the potential cost of higher risk of GI side effects). Clozapine is already given as a small morning dose with a much larger evening dose; this was done because during a previous admission pt was having hypotensive episodes especially in the morning. In retrospect, this may have been due more to reduced fluid intake while depressed. If were to do consolidate, he'd still have to take quite a few pills (3 clozapine and 5 lithium) every night. It should be noted that I find no evidence that pt has ever refused medication while in hospital and that having someone administer his medications on an outpatient basis might solve this issue. (1) Schizoaffective disorder, bipolar type: Plan The patient was admitted to the [facility] ([facility]) on q15 min checks (behavioral with suicide precautions) for safety. The patient will participate in group, recreational, and milieu therapies and will be offered additional individual and family sessions as clinically appropriate. 03/17/2023: * continue LiCO3 600 mg QAM & 900 mg QHS, consider consolidating to 1500 mg QHS * continue clozapine 100 mg QAM & 250 mg QHS, consider consolidating to 350 mg QHS * discontinue aripiprazole lauroxil 400 mg IM monthly, last given 10 March 2023 (so will remain at significant level for several more weeks) * anticipate adding haloperidol, but at this point that would constitute 3 concurrent antipsychotics 03/16/2023: * continue LiCO3 600 mg QAM & 900 mg QHS, consider consolidating to 1500 mg QHS * recheck lithium level tomorrow * continue clozapine 100 mg QAM & 250 mg QHS, consider consolidating to 350 mg QHS * discontinue aripiprazole lauroxil 400 mg IM monthly, last given 10 March 2023 * anticipate adding haloperidol, but at this point that would constitute 3 concurrent antipsychotics * completed [place] form 785 for part 304(c) "involuntary" treatment at the [facility] 03/15/2023: * continue LiCO3 600 mg QAM & 900 mg QHS, consider consolidating to 1500 mg QHS * recheck lithium level in 2 days * continue clozapine 100 mg QAM & 250 mg QHS, consider consolidating to 350 mg QHS * discontinue aripiprazole lauroxil 400 mg IM monthly, last given 10 March 2023 * discontinue aripiprazole 5 mg daily 03/14/2023: Pt was recently started on aripiprazole lauroxil. Since his record indicates a failed trial of oral aripiprazole in the past, I will be circumspect about discontinuing clozapine at this time. * continue LiCO3 600 mg QAM & 900 mg QHS * continue clozapine 100 mg QAM & 250 mg QHS for the time being * continue aripiprazole lauroxil 400 mg IM monthly, next due 09 April 2023 * continue aripiprazole 5 mg daily Inventory Assets Strengths: voluntary, intelligent Needs: safety and stabilization, medication adjustment Suicide Risk Level Suicide Risk Level: Moderate (q15 min suicide checks) Suicide Risk Level Comments: has chronic suicidal thoughts on which he's never acted Risk Factors Assessment Male: Yes : Yes Do You Have Access To A Gun?: No Health Problems: No Mental Health Diagnoses: Yes Substance Use Disorders: No Previous Attempt: No Family History of Suicide: No Previous Psychiatric Hospitalization: Yes Hopelessness: No Protective Factors Assessment Employed: No Good Rapport with Provider: Yes Interval History Identifying Information NASEEM MCGEE is a 27-year-old M who currently lives in [facility], has a history of Schizoaffective Disorder, Bipolar Type, and was admitted on 03/13/23 14:14 on a 201 voluntary commitment for susanne. He was commi tted under part 304(c) on 03/17/2023. Chief Complaint "Nothing's worse". Review of Systems Sleep Information Total Hours of Sleep: 7 Meal Information Percent Meal Consumed - Breakfast: 100 Percent Meal Consumed - Lunch: 100 Percent Meal Consumed - Dinner: 100 Nutrition Comment: pt. does not typically eat breakfast Subjective Subjective Patient was seen & assessed and interval progress reviewed in a multidisciplinary team meeting with the treatment team. For details, see the "Impression" section below. Physical Exam Psychiatric Orientation: alert, oriented to person, oriented to place, oriented to time and cooperative Apperance: appropriately dressed and appropriately groomed Eye Contact: good eye contact Motor Behavior: + psychomotor agitation Speech: normal rate/rhythm/volume of speech Affect: + constricted affect Thought Process: + tangential thought process Thought Content: + cognitive distortions Suicidal Thoughts: denies suicidal intent; + reports suicidal thoughts (chronic) and + reports suicidal plan (jumping into traffic) Homicidal Thoughts: denies homicidal thoughts Hallucinations: + auditory hallucinations; no visual hallucinations and no tactile hallucinations Cognition: recent memory grossly intact, remote memory grossly intact, attention grossly intact and language grossly intact Estimated Intelligence: average estimated intelligence Insight: + fair insight Judgment: + poor judgement Vital Signs (Past 24 Hours) Last Vital Signs Temp 36.8 C 03/17/23 06:33 Pulse 89 03/17/23 06:33 Resp 16 03/17/23 06:33 BP 116/75 03/17/23 06:33 Pulse Ox 98 03/13/23 14:44 O2 Del Method Room Air 03/13/23 14:44 Results & Data ([facility]) Laboratory Results Laboratory Results - last 24 hr 03/17/23 08:12 [place] 1.0 Current Inpatient Medications Current Inpatient Medications: Current Inpatient Medications Acetaminophen (Acetaminophen 325 Mg Tab) 650 mg PO Q4H PRN PRN Reason: Headache or Minor Fever Stop: 04/12/23 15:03 Al Hydrox/Mg Hydrox/Simethicone (Aluminum/Magnesium Susp 30 Ml Udc) 30 ml PO Q4H PRN PRN Reason: GI Upset Stop: 04/12/23 15:03 Aripiprazole (Aripiprazole 400 Mg Pre-Filled Syringe) 400 mg IM Q30D [facility] Stop: 05/09/23 07:59 Bismuth Subsalicylate (Bismuth Subsalicylate Liqd 236 Ml) 15 ml PO PRN PRN PRN Reason: Loose Stool Stop: 04/12/23 15:03 Clozapine (Clozapine 25 Mg Tab) 50 mg PO HS [facility] Stop: 04/12/23 21:59 Last Admin: 03/16/23 21:32 Dose: 50 mg Clozapine (Clozapine 100 Mg Tab) 200 mg PO HS [facility] Stop: 04/12/23 21:59 Last Admin: 03/16/23 21:32 Dose: 200 mg Clozapine (Clozapine 100 Mg Tab) 100 mg PO DAILY [facility] Stop: 04/13/23 08:59 Last Admin: 03/17/23 08:32 Dose: 100 mg Docusate Calcium (Docusate Calcium 240 Mg Capsule) 240 mg PO DAILY PRN PRN Reason: constipation Stop: 04/12/23 16:39 Hydroxyzine HCl (Hydroxyzine Hcl 25 Mg Tab) 50 mg PO HSZ PRN PRN Reason: Insomnia Stop: 04/12/23 15:03 Hydroxyzine HCl (Hydroxyzine Hcl 25 Mg Tab) 25 mg PO Q4H PRN PRN Reason: Anxiety Stop: 04/12/23 15:03 [place] Carbonate ([place]ks Carbonate Slow Rel 300 Mg Tab) 600 mg PO QAM [facility] Stop: 04/13/23 08:59 Last Admin: 03/17/23 08:32 Dose: 600 mg [place] Carbonate ([place] Carbonate 450 Mg Tabcr) 900 mg PO HS [facility] Stop: 04/12/23 21:59 Last Admin: 03/16/23 21:32 Dose: 900 mg Magnesium Hydroxide (Magnesium Hydroxide Susp 30 Ml Udc) 30 ml PO DAILY PRN PRN Reason: Constipation Stop: 04/12/23 15:03 Polyethylene Glycol (Polyethylene (Miralax) 17 Gm Pack) 17 gm PO DAILY PRN PRN Reason: constipation Stop: 04/12/23 16:17 Sodium Chloride (Sodium Chloride 0.65% Na Soln 45 Ml ([place])) 1 - 2 sprays NA PRN PRN PRN Reason: Nasal Dryness/Congestion Stop: 04/12/23 15:03 Mental Health & Subst Abuse Tx Psychiatrist Name of Psychiatrist: Kody Rogers Psychiatrist's Time of Appointment with Psychiatrist: Please follow-up as needed. Psychiatric Appointment Comment: [address] [place] [address] Therapist Name of Therapist: [facility] [place] Therapist's Therapy Appointment Comment: [address], [facility] [address], [place] [address] Classifications Officer Cc/Cm Name of Classifications Officer Cc/Cm: [facility] - [place] Phone Number for Classifications Officer Cc/Cm: [phone] Case Management Appointment Comment: Please resume your normal schedule. Post Discharge Appointments Primary Care Physician Name Of Family Doctor/PCP: [facility] [place] [facility] Time of Appointment with PCP: Please follow-up as needed. Provider Appointment Comment: [address] [place] [address] Optomechanical Engineer Name of Optomechanical Engineer: [place] [facility] - Crisis Peer Phone Number of Optomechanical Engineer: [phone] Optomechanical Engineer Appointment Comment: Please resume your normal schedule. Contact Information Discharge Discharge Address: [address] [place] [id number]
[2023-03-17] MEDS: LITHIUM CARBONATE 450 MG TABCR PO SCH (20:36)
[2023-03-17] MEDS: cloZAPine 25 MG TAB PO SCH (20:36)
--- NOTE | 2023-03-18 08:52 | Psychiatric Progress Note ---
Date of Service March 18, 2023 Impression / Recommendations Impression 27 y/o M resident of personal senior care with exacerbation Schizoaffective Disorder, Bipolar Type due to not taking medications and [place] concerns for possible suicide attempt given recent SI with plans of walking into traffic. He is now on a 304 commitment and is unable to return to his personal senior care. [facility] Hospital referral in progress, the [facility] is currently reviewing this. [facility] due to psychosis with intermittent auditory hallucinations, guarded around peers, cannot tolerate a roommate 03/18/2023: Reviewed interim progress per Dr. Thorne's notes. Ongoing responses to internal stimuli, guarded but cooperative with care and medications. Given clozapine use and recent abilify JOSHI, I agree with Dr. Thorne's that starting an additional antipsychotic medication would be contraindicated at this time given high risk for side effects. His lithium is therapeutic and he is tolerating this well. Appears his citalopram, which was started to help with mood and SI during his last hospitalization was discontinued prior to his most recent admission possibly due to concern for susanne/racing thoughts though no current evidence for susanne. Ongoing intermittent command AH, thoughts of SI to walk into traffic and poor adherence with po medications in the outpatient setting making it very difficult to safety plan for outside of the hospital. Agree with plan for [facility] given multiple repeated hospitalizations over the last 6 months with ongoing decompensation despite medication adjustments and dose optimizations. (1) Schizoaffective disorder, bipolar type: Plan 03/18/2023: Continue current medications and tx plan. Will plan to consider augmentation with haldol once abilify JOSHI effects have waned over the next few weeks. 03/17/2023: * continue LiCO3 600 mg QAM & 900 mg QHS, consider consolidating to 1500 mg QHS * continue clozapine 100 mg QAM & 250 mg QHS, consider consolidating to 350 mg QHS * discontinue aripiprazole lauroxil 400 mg IM monthly, last given 10 March 2023 (so will remain at significant level for several more weeks) * anticipate adding haloperidol, but at this point that would constitute 3 concurrent antipsychotics 03/16/2023: * continue LiCO3 600 mg QAM & 900 mg QHS, consider consolidating to 1500 mg QHS * recheck lithium level tomorrow * continue clozapine 100 mg QAM & 250 mg QHS, consider consolidating to 350 mg QHS * discontinue aripiprazole lauroxil 400 mg IM monthly, last given 10 March 2023 * anticipate adding haloperidol, but at this point that would constitute 3 concurrent antipsychotics * completed [place] form MH 785 for part 304(c) "involuntary" treatment at the [facility] 03/15/2023: * continue LiCO3 600 mg QAM & 900 mg QHS, consider consolidating to 1500 mg QHS * recheck lithium level in 2 days * continue clozapine 100 mg QAM & 250 mg QHS, consider consolidating to 350 mg QHS * discontinue aripiprazole lauroxil 400 mg IM monthly, last given 10 March 2023 * discontinue aripiprazole 5 mg daily 03/14/2023: The patient was admitted to the [facility] ([facility] mental health unit) on q15 min checks (behavioral with suicide precautions) for safety. The patient will participate in group, recreational, and milieu therapies and will be offered additional individual and family sessions as clinically appropriate. Pt was recently started on aripiprazole lauroxil. Since his record indicates a failed trial of oral aripiprazole in the past, I will be circumspect about discontinuing clozapine at this time. * continue LiCO3 600 mg QAM & 900 mg QHS * continue clozapine 100 mg QAM & 250 mg QHS for the time being * continue aripiprazole lauroxil 400 mg IM monthly, next due 09 April 2023 * continue aripiprazole 5 mg daily Inventory Assets Strengths: voluntary, intelligent Needs: safety and stabilization, medication adjustment Suicide Risk Level Suicide Risk Level: Moderate (q15 min suicide checks) (prior to admission reported command AH and SI with plan but mood stabilized in inpt setting, feels safe in the hospital and agrees to let nursing know if he feels unable to remain safe, has command AH or requires additional support) Risk Factors Assessment Male: Yes : Yes Do You Have Access To A Gun?: No Health Problems: No Mental Health Diagnoses: Yes Substance Use Disorders: No Previous Attempt: No Family History of Suicide: No Previous Psychiatric Hospitalization: Yes Hopelessness: No Protective Factors Assessment Employed: No Good Rapport with Provider: Yes Interval History Identifying Information NASEEM MCGEE is a 27-year-old M who currently lives in [facility], has a history of Schizoaffective Disorder, Bipolar Type, and was admitted on 03/13/23 14:14 on a 201 voluntary commitment for susanne. He was committed under part 304(c) on 03/17/2023. Chief Complaint "I'm ok". Review of Systems Sleep Information Total Hours of Sleep: 7 Meal Information Percent Meal Consumed - Breakfast: 100 Percent Meal Consumed - Lunch: 100 Percent Meal Consumed - Dinner: 100 Nutrition Comment: pt. does not typically eat breakfast Subjective Subjective Patient was seen & assessed and interval progress reviewed with treatment team nursing and social work. Continues to walk in the hallways and responding to internal stimuli. Attending a few groups with surface level participation. Tolerated a brief discussion with me, denies any medication side effects, feels safe in the hospital, understands process of [facility] hospital referral has started. Physical Exam Psychiatric Orientation: alert, oriented x 3 and + guarded Apperance: appropriately dressed and appropriately groomed Eye Contact: + fair eye contact Motor Behavior: + psychomotor agitation Speech: normal rate/rhythm/volume of speech Affect: + constricted affect Thought Process: + circumstantial thought process Thought Content: + preoccupation Suicidal Thoughts: denies suicidal intent; + reports suicidal thoughts (chronic intermittent, denies today) and + reports suicidal plan (jumping into traffic) Homicidal Thoughts: denies homicidal thoughts Hallucinations: + auditory hallucinations; no visual hallucinations and no tactile hallucinations Cognition: recent memory grossly intact, remote memory grossly intact, attention grossly intact and language grossly intact Estimated Intelligence: average estimated intelligence Insight: + fair insight Judgment: + poor judgement Vital Signs (Past 24 Hours) Last Vital Signs Temp 37.1 C 03/18/23 06:00 Pulse 67 03/18/23 06:00 Resp 18 03/18/23 06:00 BP 124/70 03/18/23 06:38 Pulse Ox 98 03/18/23 06:00 O2 Del Method Room Air 03/18/23 06:00 Results & Data ([facility]) Laboratory Results Laboratory Results - last 24 hr 03/17/23 08:12 [place] 1.0 Current Inpatient Medications Current Inpatient Medications: Current Inpatient Medications Acetaminophen (Acetaminophen 325 Mg Tab) 650 mg PO Q4H PRN PRN Reason: Headache or Minor Fever Stop: 04/12/23 15:03 Al Hydrox/Mg Hydrox/Simethicone (Aluminum/Magnesium Susp 30 Ml Udc) 30 ml PO Q4H PRN PRN Reason: GI Upset Stop: 04/12/23 15:03 Aripiprazole (Aripiprazole 400 Mg Pre-Filled Syringe) 400 mg IM Q30D [facility] Stop: 05/09/23 07:59 Bismuth Subsalicylate (Bismuth Subsalicylate Liqd 236 Ml) 15 ml PO PRN PRN PRN Reason: Loose Stool Stop: 04/12/23 15:03 Clozapine (Clozapine 25 Mg Tab) 50 mg PO HS [facility] Stop: 04/12/23 21:59 Last Admin: 03/17/23 20:36 Dose: 50 mg Clozapine (Clozapine 100 Mg Tab) 200 mg PO HS [facility] Stop: 04/12/23 21:59 Last Admin: 03/17/23 20:36 Dose: 200 mg Clozapine (Clozapine 100 Mg Tab) 100 mg PO DAILY [facility] Stop: 04/13/23 08:59 Last Admin: 03/17/23 08:32 Dose: 100 mg Docusate Calcium (Docusate Calcium 240 Mg Capsule) 240 mg PO DAILY PRN PRN Reason: constipation Stop: 04/12/23 16:39 Hydroxyzine HCl (Hydroxyzine Hcl 25 Mg Tab) 50 mg PO HSZ PRN PRN Reason: Insomnia Stop: 04/12/23 15:03 Hydroxyzine HCl (Hydroxyzine Hcl 25 Mg Tab) 25 mg PO Q4H PRN PRN Reason: Anxiety Stop: 04/12/23 15:03 [place] Carbonate ([place] Carbonate Slow Rel 300 Mg Tab) 600 mg PO QAM [facility] Stop: 04/13/23 08:59 Last Admin: 03/17/23 08:32 Dose: 600 mg [place] Carbonate ([place] Carbonate 450 Mg Tabcr) 900 mg PO HS [facility] Stop: 04/12/23 21:59 Last Admin: 03/17/23 20:36 Dose: 900 mg Magnesium Hydroxide (Magnesium Hydroxide Susp 30 Ml Udc) 30 ml PO DAILY PRN PRN Reason: Constipation Stop: 04/12/23 15:03 Polyethylene Glycol (Polyethylene (Miralax) 17 Gm Pack) 17 gm PO DAILY PRN PRN Reason: constipation Stop: 04/12/23 16:17 Sodium Chloride (Sodium Chloride 0.65% Na Soln 45 Ml ([place])) 1 - 2 sprays NA PRN PRN PRN Reason: Nasal Dryness/Congestion Stop: 04/12/23 15:03 Mental Health & Subst Abuse Tx Psychiatrist Name of Psychiatrist: Kody Rogers Psychiatrist's Time of Appointment with Psychiatrist: Please follow-up as needed. Psychiatric Appointment Comment: [address] [place] [address] Therapist Name of Therapist: [facility] [place] Therapist's Therapy Appointment Comment: [address], [facility] [address], [place] [address] Clinical Program Coordinator Name of Clinical Program Coordinator: [facility] [place] Phone Number for Clinical Program Coordinator: [phone] Case Management Appointment Comment: Please resume your normal schedule. Post Discharge Appointments Primary Care Physician Name Of Family Doctor/PCP: [facility] [place] [facility] Time of Appointment with PCP: Please follow-up as needed. Provider Appointment Comment: [address] [place] [address] Aircraft Structural Fitter Name of Aircraft Structural Fitter: [place] [facility] - Crisis Peer Phone Number of Aircraft Structural Fitter: [phone] Aircraft Structural Fitter Appointment Comment: Please resume your normal schedule. Contact Information Discharge Discharge Address: [address] [place] [id number]
[2023-03-18] MEDS: cloZAPine 100 MG TAB PO SCH ×2 (09:10→21:15)
[2023-03-18] MEDS: LITHIUM CARBONATE SLOW REL 300 MG TAB PO SCH (09:10)
[2023-03-18] MEDS: cloZAPine 25 MG TAB PO SCH (21:15)
[2023-03-18] MEDS: LITHIUM CARBONATE 450 MG TABCR PO SCH (21:15)
--- NOTE | 2023-03-18 22:15 | Electrocardiogram Report ---
Test Reason : Blood Pressure : / mmHG Vent. Rate : 076 BPM Atrial Rate : 076 BPM P-R Int : 180 ms QRS Dur : 082 ms QT Int : 348 ms P-R-T Axes : 046 060 023 degrees QTc Int : 391 ms Normal sinus rhythm Normal ECG When compared with ECG of 05-FEB-2023 11:10, No significant change was found Confirmed by Renny Quinn ([id number]) on 03/18/2023 10:15:10 PM Referred By: REFERRED SELF Confirmed By:Renny Quinn
--- NOTE | 2023-03-19 08:51 | Psychiatric Progress Note ---
Date of Service March 19, 2023 Impression / Recommendations Impression 27 y/o M resident of personal [facility] with exacerbation Schizoaffective Disorder, Bipolar Type due to not taking medications [place] concerns for possible suicide attempt given recent SI with plans of walking into traffic. He is now on a 304 commitment and is unable to return to his personal mcc. [facility] Hospital referral in progress, the [facility] is currently reviewing this. MNPR due to psychosis with intermittent auditory hallucinations, guarded around peers, cannot tolerate a roommate 03/19/2023: Continues to respond to internal stimuli, ongoing psychosis with guardedness. Tolerating his current medications, unclear if recent abilify JOSHI is offering any benefit. (1) Schizoaffective disorder, bipolar type: Plan 03/19/2023: Continue current medications and tx plan. CBC with ANC tomorrow. 03/18/2023: Continue current medications and tx plan. Will plan to consider augmentation with haldol once abilify JOSHI effects have waned over the next few weeks. 03/17/2023: * continue LiCO3 600 mg QAM & 900 mg QHS, consider consolidating to 1500 mg QHS * continue clozapine 100 mg QAM & 250 mg QHS, consider consolidating to 350 mg QHS * discontinue aripiprazole lauroxil 400 mg IM monthly, last given 10 March 2023 (so will remain at significant level for several more weeks) * anticipate adding haloperidol, but at this point that would constitute 3 concurrent antipsychotics 03/16/2023: * continue LiCO3 600 mg QAM & 900 mg QHS, consider consolidating to 1500 mg QHS * recheck lithium level tomorrow * continue clozapine 100 mg QAM & 250 mg QHS, consider consolidating to 350 mg QHS * discontinue aripiprazole lauroxil 400 mg IM monthly, last given 10 March 2023 * anticipate adding haloperidol, but at this point that would constitute 3 concurrent antipsychotics * [place] form 788 [place] part 304(c) "involuntary" treatment at the [facility] 03/15/2023: * continue LiCO3 600 mg QAM & 900 mg QHS, consider consolidating to 1500 mg QHS * recheck lithium level in 2 days * continue clozapine 100 mg QAM & 250 mg QHS, consider consolidating to 350 mg QHS * discontinue aripiprazole lauroxil 400 mg IM monthly, last given 10 March 2023 * discontinue aripiprazole 5 mg daily 03/14/2023: The patient was admitted to the [facility] ([facility] mental health unit) on q15 min checks (behavioral with suicide precautions) for safety. The patient will participate in group, recreational, and milieu therapies and will be offered additional individual and family sessions as clinically appropriate. Pt was recently started on aripiprazole lauroxil. Since his record indicates a failed trial of oral aripiprazole in the past, I will be circumspect about discontinuing clozapine at this time. * continue LiCO3 600 mg QAM & 900 mg QHS * continue clozapine 100 mg QAM & 250 mg QHS for the time being * continue aripiprazole lauroxil 400 mg IM monthly, next due 09 April 2023 * continue aripiprazole 5 mg daily Inventory Assets Strengths: voluntary, intelligent Needs: safety and stabilization, medication adjustment Suicide Risk Level Suicide Risk Level: Moderate (q15 min suicide checks) (prior to admission reported command AH and SI with plan but mood stabilized in inpt setting, feels safe in the hospital and agrees to let nursing know if he feels unable to remain safe, has command AH or requires additional support) Risk Factors Assessment Male: Yes : Yes Do You Have Access To A Gun?: No Health Problems: No Mental Health Diagnoses: Yes Substance Use Disorders: No Previous Attempt: No Family History of Suicide: No Previous Psychiatric Hospitalization: Yes Hopelessness: No Protective Factors Assessment Employed: No Good Rapport with Provider: Yes Interval History Identifying Information NASEEM MCGEE is a 27-year-old M who currently lives in [facility], has a history of Schizoaffective Disorder, Bipolar Type, and was admitted on 03/13/23 14:14 on a 201 voluntary commitment for susanne. He was committed under part 304(c) on 03/17/2023. Chief Complaint "I'm pretty good". Review of Systems Sleep Information Total Hours of Sleep: 7 Meal Information Percent Meal Consumed - Breakfast: 100 Percent Meal Consumed - Lunch: 100 Percent Meal Consumed - Dinner: 100 Nutrition Comment: Subjective Subjective Patient was seen & assessed and interval progress reviewed with treatment team nursing and social work. Still pacing in the halls most of the day laughing and talking to internal stimuli. Did attend community meeting. Only interacting very briefly with peers but did play a game for a short time. Guarded and brief during interview, states his mood is "pretty good", denies any medication side effects, denies current SI, quickly returns to walking in halls with his headphones on. Physical Exam Psychiatric Orientation: alert, oriented x 3 and + guarded Apperance: appropriately dressed and appropriately groomed Eye Contact: + fair eye contact Motor Behavior: + psychomotor agitation Speech: normal rate/rhythm/volume of speech Affect: + constricted affect Thought Process: + circumstantial thought process Thought Content: + preoccupation Suicidal Thoughts: denies suicidal intent; + reports suicidal thoughts (chronic intermittent, denies today) and + reports suicidal plan (jumping into traffic) Homicidal Thoughts: denies homicidal thoughts Hallucinations: + auditory hallucinations; no visual hallucinations and no tactile hallucinations Cognition: recent memory grossly intact, remote memory grossly intact, attention grossly intact and language grossly intact Estimated Intelligence: average estimated intelligence Insight: + fair insight Judgment: + poor judgement Vital Signs (Past 24 Hours) Last Vital Signs Temp 36.6 C 03/19/23 06:00 Pulse 70 03/19/23 06:00 Resp 18 03/19/23 06:00 BP 93/56 L 03/19/23 06:33 Pulse Ox 97 03/19/23 06:00 O2 Del Method Room Air 03/19/23 06:00 Results & Data ([facility]) Current Inpatient Medications Current Inpatient Medications: Current Inpatient Medications Acetaminophen (Acetaminophen 325 Mg Tab) 650 mg PO Q4H PRN PRN Reason: Headache or Minor Fever Stop: 04/12/23 15:03 Al Hydrox/Mg Hydrox/Simethicone (Aluminum/Magnesium Susp 30 Ml Udc) 30 ml PO Q4H PRN PRN Reason: GI Upset Stop: 04/12/23 15:03 Aripiprazole (Aripiprazole 400 Mg Pre-Filled Syringe) 400 mg IM Q30D VIVIAN Stop: 05/09/23 07:59 Bismuth Subsalicylate (Bismuth Subsalicylate Liqd 236 Ml) 15 ml PO PRN PRN PRN Reason: Loose Stool Stop: 04/12/23 15:03 Clozapine (Clozapine 25 Mg Tab) 50 mg PO HS VIVIAN Stop: 04/12/23 21:59 Last Admin: 03/18/23 21:15 Dose: 50 mg Clozapine (Clozapine 100 Mg Tab) 200 mg PO HS VIVIAN Stop: 04/12/23 21:59 Last Admin: 03/18/23 21:15 Dose: 200 mg Clozapine (Clozapine 100 Mg Tab) 100 mg PO DAILY VIVIAN Stop: 04/13/23 08:59 Last Admin: 03/18/23 09:10 Dose: 100 mg Docusate Calcium (Docusate Calcium 240 Mg Capsule) 240 mg PO DAILY PRN PRN Reason: constipation Stop: 04/12/23 16:39 Hydroxyzine HCl (Hydroxyzine Hcl 25 Mg Tab) 50 mg PO HSZ PRN PRN Reason: Insomnia Stop: 04/12/23 15:03 Hydroxyzine HCl (Hydroxyzine Hcl 25 Mg Tab) 25 mg PO Q4H PRN PRN Reason: Anxiety Stop: 04/12/23 15:03 Rafael Capo Carbonate (Rafael Capo Carbonate Slow Rel 300 Mg Tab) 600 mg PO QAM VIVIAN Stop: 04/13/23 08:59 Last Admin: 03/18/23 09:10 Dose: 600 mg Rafael Capo Carbonate (Rafael Capo Carbonate 450 Mg Tabcr) 900 mg PO HS VIVIAN Stop: 04/12/23 21:59 Last Admin: 03/18/23 21:15 Dose: 900 mg Magnesium Hydroxide (Magnesium Hydroxide Susp 30 Ml Udc) 30 ml PO DAILY PRN PRN Reason: Constipation Stop: 04/12/23 15:03 Polyethylene Glycol (Polyethylene (Miralax) 17 Gm Pack) 17 gm PO DAILY PRN PRN Reason: constipation Stop: 04/12/23 16:17 Sodium Chloride (Sodium Chloride 0.65% Na Soln 45 Ml ([place])) 1 - 2 sprays NA PRN PRN PRN Reason: Nasal Dryness/Congestion Stop: 04/12/23 15:03 Mental Health & Subst Abuse Tx Psychiatrist Name of Psychiatrist: Kody Rogers Psychiatrist's Time of Appointment with Psychiatrist: Please follow-up as needed. Psychiatric Appointment Comment: [address] [place] [address] Therapist Name of Therapist: Cheko England - Marilou Therapist's Therapy Appointment Comment: [address], [address], [place] [address] Payroll Examiner Name of Payroll Examiner: [facility] [place] Phone Number for Payroll Examiner: [phone] Case Management Appointment Comment: Please resume your normal schedule. Post Discharge Appointments Primary Care Physician Name Of Family Doctor/PCP: Kody Dunn Primary [facility] Time of Appointment with PCP: Please follow-up as needed. Provider Appointment Comment: [address] [place] [address] Radio Frequency Design Engineer Name of Radio Frequency Design Engineer: [facility] - Crisis Peer Phone Number of Radio Frequency Design Engineer: [phone] Radio Frequency Design Engineer Appointment Comment: Please resume your normal schedule. Contact Information Discharge Discharge Address: [address] [place] [id number]
[2023-03-19] MEDS: LITHIUM CARBONATE SLOW REL 300 MG TAB PO SCH (09:29)
[2023-03-19] MEDS: cloZAPine 100 MG TAB PO SCH ×2 (09:29→22:18)
[2023-03-19] MEDS: cloZAPine 25 MG TAB PO SCH (22:18)
[2023-03-19] MEDS: LITHIUM CARBONATE 450 MG TABCR PO SCH (22:18)
[2023-03-20] MEDS: LITHIUM CARBONATE SLOW REL 300 MG TAB PO SCH (08:28)
[2023-03-20] MEDS: cloZAPine 100 MG TAB PO SCH ×2 (08:28→21:49)
[2023-03-20 08:29] LABS: Basophils # (auto) 0.11 K/uL (0-0.2); Basophils % (auto) 1.1 %; Eosinophils # (auto) 0.37 K/uL (0-0.50); Eosinophils % (auto) 3.7 %; Hematocrit (blood only) 47.4 % (42.0-52.0); Hemoglobin 15.6 g/dl (14.0-18.0); Immature Granulocytes # (auto) 0.09 K/uL (0.01-0.20); Immature Granulocytes % (auto) 0.9 %; Lymphocytes # (auto) 2.62 K/uL (1.2-3.4); Lymphocytes % (auto) 26.5 %; Mean Corpuscular Hemoglobin 27.3 pg (25.0-34.0); Mean Corpuscular Hgb Conc 32.9 g/dL (32.0-36.0); Mean Platelet Volume 10.2 fL (9.4-12.4); Monocytes # (auto) 1.03 K/uL (0.11-0.59); Monocytes % (auto) 10.4 %; Neutrophils # (auto) 5.66 K/uL (1.40-6.50); Neutrophils % (auto) 57.4 %; Platelet Count 338 K/uL (130-400); RDW Coefficient of Variation 12.8 % (11.5-14.5); RDW Standard Deviation 38.9 fL (36.4-46.3); Red Blood Count 5.71 M/uL (4.70-6.10); White Blood Count 9.88 K/ul (4.8-10.8)
--- NOTE | 2023-03-20 08:38 | Psychiatric Progress Note ---
Date of Service March 20, 2023 Impression / Recommendations Impression 27 y/o M [facility] with exacerbation Schizoaffective Disorder, Bipolar Type due to not taking medications [place] concerns for possible suicide attempt given recent SI with plans of walking into traffic. He is now on a 304 commitment and is unable to return to his [facility]. [facility] referral in progress, the [facility] is currently reviewing this. MNPR due to psychosis with intermittent auditory hallucinations, guarded around peers, cannot tolerate a roommate 03/20/2023: Continues to respond to internal stimuli, ongoing psychosis with guardedness and only able to tolerate brief interactions. Some possible side effects to clozapine and abilify JOSHI today with fatigue and dizziness but vital signs stable and gait stable. CBC reviewed and ANC normal and stable for ongoing clozapine use. (1) Schizoaffective disorder, bipolar type: Plan 03/20/2023: Continue current medications and tx plan. 03/19/2023: Continue current medications and tx plan. CBC with ANC tomorrow. 03/18/2023: Continue current medications and tx plan. Will plan to consider augmentation with haldol once abilify JOSHI effects have waned over the next few weeks. 03/17/2023: * continue LiCO3 600 mg QAM & 900 mg QHS, consider consolidating to 1500 mg QHS * continue clozapine 100 mg QAM & 250 mg QHS, consider consolidating to 350 mg QHS * discontinue aripiprazole lauroxil 400 mg IM monthly, last given 10 March 2023 (so will remain at significant level for several more weeks) * anticipate adding haloperidol, but at this point that would constitute 3 concurrent antipsychotics 03/16/2023: * continue LiCO3 600 mg QAM & 900 mg QHS, consider consolidating to 1500 mg QHS * recheck lithium level tomorrow * continue clozapine 100 mg QAM & 250 mg QHS, consider consolidating to 350 mg QHS * discontinue aripiprazole lauroxil 400 mg IM monthly, last given 10 March 2023 * anticipate adding haloperidol, but at this point that would constitute 3 concurrent antipsychotics * [place] form 785 [place] part 304(c) "involuntary" treatment at the [facility] 03/15/2023: * continue LiCO3 600 mg QAM & 900 mg QHS, consider consolidating to 1500 mg QHS * recheck lithium level in 2 days * continue clozapine 100 mg QAM & 250 mg QHS, consider consolidating to 350 mg QHS * discontinue aripiprazole lauroxil 400 mg IM monthly, last given 10 March 2023 * discontinue aripiprazole 5 mg daily 03/14/2023: The patient was admitted to the [facility] on q15 min checks (behavioral with suicide precautions) for safety. The patient will participate in group, recreational, and milieu therapies and will be offered additional individual and family sessions as clinically appropriate. Pt was recently started on aripiprazole lauroxil. Since his record indicates a failed trial of oral aripiprazole in the past, I will be circumspect about discontinuing clozapine at this time. * continue LiCO3 600 mg QAM & 900 mg QHS * continue clozapine 100 mg QAM & 250 mg QHS for the time being * continue aripiprazole lauroxil 400 mg IM monthly, next due 09 April 2023 * continue aripiprazole 5 mg daily Inventory Assets Strengths: voluntary, intelligent Needs: safety and stabilization, medication adjustment Suicide Risk Level Suicide Risk Level: Moderate (q15 min suicide checks) (prior to admission reported command AH and SI with plan but mood stabilized in inpt setting, feels safe in the hospital and agrees to let nursing know if he feels unable to remain safe, has command AH or requires additional support) Risk Factors Assessment Male: Yes : Yes Do You Have Access To A Gun?: No Health Problems: No Mental Health Diagnoses: Yes Substance Use Disorders: No Previous Attempt: No Family History of Suicide: No Previous Psychiatric Hospitalization: Yes Hopelessness: No Protective Factors Assessment Employed: No Good Rapport with Provider: Yes Interval History Identifying Information NASEEM MCGEE is a 27-year-old M who currently lives in [facility], has a history of Schizoaffective Disorder, Bipolar Type, and was admitted on 03/13/23 14:14 on a 201 voluntary commitment for susanne. He was committed under part 304(c) on 03/17/2023. Chief Complaint "I'm a little tied and dizzy". Review of Systems Sleep Information Total Hours of Sleep: 7 Meal Information Percent Meal Consumed - Breakfast: 50 Percent Meal Consumed - Lunch: 100 Percent Meal Consumed - Dinner: 100 Subjective Subjective Patient was seen & assessed and interval progress reviewed with treatment team nursing and social work. Continues to walk in the [place] and responding to internal stimuli. Attending groups. This morning reports some fatigue and dizziness that he attributes to the medication. He was able to eat all his breakfast and plans to have sports drinks with lunch and dinner. Walking some in the halls. Denies SI. Agreeable to SW reaching out to his mother to discuss possibility of new sneakers as his current pair are significantly worn with holes in the toes. Physical Exam Psychiatric Orientation: alert, oriented x 3 and + guarded Apperance: appropriately dressed and appropriately groomed Eye Contact: + fair eye contact Motor Behavior: + psychomotor agitation Speech: normal rate/rhythm/volume of speech Affect: + constricted affect Thought Process: + circumstantial thought process Thought Content: + preoccupation Suicidal Thoughts: denies suicidal intent; + reports suicidal thoughts (chronic intermittent, denies today) and + reports suicidal plan (jumping into traffic outside the hospital) Homicidal Thoughts: denies homicidal thoughts Hallucinations: + auditory hallucinations; no visual hallucinations and no tactile hallucinations Cognition: recent memory grossly intact, remote memory grossly intact, attention grossly intact and language grossly intact Estimated Intelligence: average estimated intelligence Insight: + fair insight Judgment: + poor judgement Vital Signs (Past 24 Hours) Last Vital Signs Temp 37.0 C 03/20/23 06:00 Pulse 68 03/20/23 06:00 Resp 16 03/20/23 06:00 BP 122/82 03/20/23 06:39 Pulse Ox 97 03/20/23 06:00 O2 Del Method Room Air 03/20/23 06:00 Results & Data ([facility]) Laboratory Results Laboratory Results - last 24 hr 03/20/23 08:03 WBC 9.88 RBC 5.71 Hgb 15.6 Hct 47.4 MCV 83.0 MCH 27.3 MCHC 32.9 RDW Std Deviation 38.9 RDW Coeff of Belén 12.8 Plt Count 338 MPV 10.2 Immature Gran % (Auto) 0.9 Neut % (Auto) 57.4 Lymph % (Auto) 26.5 [place] % (Auto) 10.4 Eos % (Auto) 3.7 Baso % (Auto) 1.1 Neut # (Auto) 5.66 Lymph # (Auto) 2.62 Weakley # (Auto) 1.03 H Eos # (Auto) 0.37 Baso # (Auto) 0.11 Immature Gran # (Auto) 0.09 Current Inpatient Medications Current Inpatient Medications: Current Inpatient Medications Acetaminophen (Acetaminophen 325 Mg Tab) 650 mg PO Q4H PRN PRN Reason: Headache or Minor Fever Stop: 04/12/23 15:03 Al Hydrox/Mg Hydrox/Simethicone (Aluminum/Magnesium Susp 30 Ml Udc) 30 ml PO Q4H PRN PRN Reason: GI Upset Stop: 04/12/23 15:03 Aripiprazole (Aripiprazole 400 Mg Pre-Filled Syringe) 400 mg IM Q30D VIVIAN Stop: 05/09/23 07:59 Bismuth Subsalicylate (Bismuth Subsalicylate Liqd 236 Ml) 15 ml PO PRN PRN PRN Reason: Loose Stool Stop: 04/12/23 15:03 Clozapine (Clozapine 25 Mg Tab) 50 mg PO HS VIVIAN Stop: 04/12/23 21:59 Last Admin: 03/19/23 22:18 Dose: 50 mg Clozapine (Clozapine 100 Mg Tab) 200 mg PO HS VIVIAN Stop: 04/12/23 21:59 Last Admin: 03/19/23 22:18 Dose: 200 mg Clozapine (Clozapine 100 Mg Tab) 100 mg PO DAILY VIVIAN Stop: 04/13/23 08:59 Last Admin: 03/20/23 08:28 Dose: 100 mg Docusate Calcium (Docusate Calcium 240 Mg Capsule) 240 mg PO DAILY PRN PRN Reason: constipation Stop: 04/12/23 16:39 Hydroxyzine HCl (Hydroxyzine Hcl 25 Mg Tab) 50 mg PO HSZ PRN PRN Reason: Insomnia Stop: 04/12/23 15:03 Hydroxyzine HCl (Hydroxyzine Hcl 25 Mg Tab) 25 mg PO Q4H PRN PRN Reason: Anxiety Stop: 04/12/23 15:03 [place] Carbonate ([place] Carbonate Slow Rel 300 Mg Tab) 600 mg PO QAM VIVIAN Stop: 04/13/23 08:59 Last Admin: 03/20/23 08:28 Dose: 600 mg [place] Carbonate ([place] Carbonate 450 Mg Tabcr) 900 mg PO HS VIVIAN Stop: 04/12/23 21:59 Last Admin: 03/19/23 22:18 Dose: 900 mg Magnesium Hydroxide (Magnesium Hydroxide Susp 30 Ml Udc) 30 ml PO DAILY PRN PRN Reason: Constipation Stop: 04/12/23 15:03 Polyethylene Glycol (Polyethylene (Miralax) 17 Gm Pack) 17 gm PO DAILY PRN PRN Reason: constipation Stop: 04/12/23 16:17 Sodium Chloride (Sodium Chloride 0.65% Na Soln 45 Ml ([place])) 1 - 2 sprays NA PRN PRN PRN Reason: Nasal Dryness/Congestion Stop: 04/12/23 15:03 Mental Health & Subst Abuse Tx Psychiatrist Name of Psychiatrist: Kody Rogers Psychiatrist's Time of Appointment with Psychiatrist: Please follow-up as needed. Psychiatric Appointment Comment: [address] [place] [address] Therapist Name of Therapist: Cheko England - Marilou Therapist's Therapy Appointment Comment: [address] [facility] [address], [facility] [address], [place] [address] Sales Compensation Analyst Name of Sales Compensation Analyst: [facility] Phone Number for Sales Compensation Analyst: [phone] Case Management Appointment Comment: Please resume your normal schedule. Post Discharge Appointments Primary Care Physician Name Of Family Doctor/PCP: Kody Dunn Primary [facility] Time of Appointment with PCP: Please follow-up as needed. Provider Appointment Comment: [address] [place] [address] Farm Boss Name of Farm Boss: [facility] - Crisis Peer Phone Number of Farm Boss: [phone] Farm Boss Appointment Comment: Please resume your normal schedule. Contact Information Discharge Discharge Address: [address] [place] [id number]
[2023-03-20] MEDS: cloZAPine 25 MG TAB PO SCH (21:49)
[2023-03-20] MEDS: LITHIUM CARBONATE 450 MG TABCR PO SCH (21:49)
--- NOTE | 2023-03-21 08:38 | Psychiatric Progress Note ---
Date of Service March 21, 2023 Impression / Recommendations Impression 27 y/o M resident of personal group home with exacerbation Schizoaffective Disorder, Bipolar Type due to not taking medications and [place] concerns for possible suicide attempt given recent SI with plans of walking into traffic. He is now on a 304 commitment and is unable to return to his personal group home. [facility] referral in progress, the [facility] is currently reviewing this. MNPR due to psychosis with intermittent auditory hallucinations, guarded around peers, cannot tolerate a roommate 03/21/2023: Continues to respond to internal stimuli, ongoing psychosis with guardedness and only able to tolerate brief interactions. Some possible side effects to clozapine and abilify JOSHI today with fatigue and dizziness but vital signs stable and gait stable. Will consolidate clozapine starting tomorrow to see if this helps with intermittent dizziness which he consents to. (1) Schizoaffective disorder, bipolar type: Plan 03/21/2023: Consolidate clozapine to 350mg HS starting tomorrow. 03/20/2023: Continue current medications and tx plan. 03/19/2023: Continue current medications and tx plan. CBC with ANC tomorrow. 03/18/2023: Continue current medications and tx plan. Will plan to consider augmentation with haldol once abilify JOSHI effects have waned over the next few weeks. 03/17/2023: * continue LiCO3 600 mg QAM & 900 mg QHS, consider consolidating to 1500 mg QHS * continue clozapine 100 mg QAM & 250 mg QHS, consider consolidating to 350 mg QHS * discontinue aripiprazole lauroxil 400 mg IM monthly, last given 10 March 2023 (so will remain at significant level for several more weeks) * anticipate adding haloperidol, but at this point that would constitute 3 concurrent antipsychotics 03/16/2023: * continue LiCO3 600 mg QAM & 900 mg QHS, consider consolidating to 1500 mg QHS * recheck lithium level tomorrow * continue clozapine 100 mg QAM & 250 mg QHS, consider consolidating to 350 mg QHS * discontinue aripiprazole lauroxil 400 mg IM monthly, last given 10 March 2023 * anticipate adding haloperidol, but at this point that would constitute 3 concurrent antipsychotics * [place] form 323 for part 304(c) "involuntary" treatment at the [facility] 03/15/2023: * continue LiCO3 600 mg QAM & 900 mg QHS, consider consolidating to 1500 mg QHS * recheck lithium level in 2 days * continue clozapine 100 mg QAM & 250 mg QHS, consider consolidating to 350 mg QHS * discontinue aripiprazole lauroxil 400 mg IM monthly, last given 10 March 2023 * discontinue aripiprazole 5 mg daily 03/14/2023: The patient was admitted to the [facility] ([facility] mental health unit) on q15 min checks (behavioral with suicide precautions) for safety. The patient will participate in group, recreational, and milieu t herapies and will be offered additional individual and family sessions as clinically appropriate. Pt was recently started on aripiprazole lauroxil. Since his record indicates a failed trial of oral aripiprazole in the past, I will be circumspect about discontinuing clozapine at this time. * continue LiCO3 600 mg QAM & 900 mg QHS * continue clozapine 100 mg QAM & 250 mg QHS for the time being * continue aripiprazole lauroxil 400 mg IM monthly, next due 09 April 2023 * continue aripiprazole 5 mg daily Inventory Assets Strengths: voluntary, intelligent Needs: safety and stabilization, medication adjustment Suicide Risk Level Suicide Risk Level: Moderate (q15 min suicide checks) (prior to admission reported command AH and SI with plan but mood stabilized in inpt setting, feels safe in the hospital and agrees to let nursing know if he feels unable to remain safe, has command AH or requires additional support) Risk Factors Assessment Male: Yes : Yes Do You Have Access To A Gun?: No Health Problems: No Mental Health Diagnoses: Yes Substance Use Disorders: No Previous Attempt: No Family History of Suicide: No Previous Psychiatric Hospitalization: Yes Hopelessness: No Protective Factors Assessment Employed: No Good Rapport with Provider: Yes Interval History Identifying Information NASEEM MCGEE is a 27-year-old M who currently lives in [facility], has a history of Schizoaffective Disorder, Bipolar Type, and was admitted on 03/13/23 14:14 on a 201 voluntary commitment for susanne. He was committed under part 304(c) on 03/17/2023. Chief Complaint "I'm a little dizzy". Review of Systems Sleep Information Total Hours of Sleep: 6.5 Meal Information Percent Meal Consumed - Breakfast: 0 Percent Meal Consumed - Lunch: 100 Percent Meal Consumed - Dinner: 100 Subjective Subjective Patient was seen & assessed and interval progress reviewed with treatment team nursing and social work. Attending groups. Walking in the halls most of the day. Today reports his mood is ok but continues to have intermittent dizziness during the day. Discussed options including trial of consolidating clozapine to see if this helps which he would like to try. Physical Exam Psychiatric Orientation: alert, oriented x 3 and + guarded Apperance: appropriately dressed and appropriately groomed Eye Contact: + fair eye contact Motor Behavior: + psychomotor agitation Speech: normal rate/rhythm/volume of speech Affect: + constricted affect Thought Process: + circumstantial thought process Thought Content: + preoccupation Suicidal Thoughts: denies suicidal intent; + reports suicidal thoughts (chronic intermittent, denies today) and + reports suicidal plan (jumping into traffic outside the hospital) Homicidal Thoughts: denies homicidal thoughts Hallucinations: + auditory hallucinations; no visual hallucinations and no tactile hallucinations Cognition: recent memory grossly intact, remote memory grossly intact, attention grossly intact and language grossly intact Estimated Intelligence: average estimated intelligence Insight: + fair insight Judgment: + poor judgement Vital Signs (Past 24 Hours) Last Vital Signs Temp 36.9 C 03/21/23 06:34 Pulse 101 H 03/21/23 06:35 Resp 16 03/21/23 06:34 BP 111/68 03/21/23 06:35 Pulse Ox 97 03/20/23 06:00 O2 Del Method Room Air 03/20/23 06:00 Results & Data ([facility]) Current Inpatient Medications Current Inpatient Medications: Current Inpatient Medications Acetaminophen (Acetaminophen 325 Mg Tab) 650 mg PO Q4H PRN PRN Reason: Headache or Minor Fever Stop: 04/12/23 15:03 Al Hydrox/Mg Hydrox/Simethicone (Aluminum/Magnesium Susp 30 Ml Udc) 30 ml PO Q4H PRN PRN Reason: GI Upset Stop: 04/12/23 15:03 Aripiprazole (Aripiprazole 400 Mg Pre-Filled Syringe) 400 mg IM Q30D VIVIAN Stop: 05/09/23 07:59 Bismuth Subsalicylate (Bismuth Subsalicylate Liqd 236 Ml) 15 ml PO PRN PRN PRN Reason: Loose Stool Stop: 04/12/23 15:03 Clozapine (Clozapine 25 Mg Tab) 50 mg PO HS VIVIAN Stop: 04/12/23 21:59 Last Admin: 03/20/23 21:49 Dose: 50 mg Clozapine (Clozapine 100 Mg Tab) 200 mg PO HS VIVIAN Stop: 04/12/23 21:59 Last Admin: 03/20/23 21:49 Dose: 200 mg Clozapine (Clozapine 100 Mg Tab) 100 mg PO DAILY VIVIAN Stop: 04/13/23 08:59 Last Admin: 03/20/23 08:28 Dose: 100 mg Docusate Calcium (Docusate Calcium 240 Mg Capsule) 240 mg PO DAILY PRN PRN Reason: constipation Stop: 04/12/23 16:39 Hydroxyzine HCl (Hydroxyzine Hcl 25 Mg Tab) 50 mg PO HSZ PRN PRN Reason: Insomnia Stop: 04/12/23 15:03 Hydroxyzine HCl (Hydroxyzine Hcl 25 Mg Tab) 25 mg PO Q4H PRN PRN Reason: Anxiety Stop: 04/12/23 15:03 Chambers Carbonate (Chambers Carbonate Slow Rel 300 Mg Tab) 600 mg PO QAM VIVIAN Stop: 04/13/23 08:59 Last Admin: 03/20/23 08:28 Dose: 600 mg Chambers Carbonate (Chambers Carbonate 450 Mg Tabcr) 900 mg PO HS VIVIAN Stop: 04/12/23 21:59 Last Admin: 03/20/23 21:49 Dose: 900 mg Magnesium Hydroxide (Magnesium Hydroxide Susp 30 Ml Udc) 30 ml PO DAILY PRN PRN Reason: Constipation Stop: 04/12/23 15:03 Polyethylene Glycol (Polyethylene (Miralax) 17 Gm Pack) 17 gm PO DAILY PRN PRN Reason: constipation Stop: 04/12/23 16:17 Sodium Chloride (Sodium Chloride 0.65% Na Soln 45 Ml ([place])) 1 - 2 sprays NA PRN PRN PRN Reason: Nasal Dryness/Congestion Stop: 04/12/23 15:03 Mental Health & Subst Abuse Tx Psychiatrist Name of Psychiatrist: Koyd Rogers Psychiatrist's Time of Appointment with Psychiatrist: Please follow-up as needed. Psychiatric Appointment Comment: [address] [place] [address] Therapist Name of Therapist: Cheko Zamarripa Therapist's Therapy Appointment Comment: [address], [address], [place] [address] Diagnostics Sales Developer Name of Diagnostics Sales Developer: [employer] [facility] Phone Number for Diagnostics Sales Developer: [phone] Case Management Appointment Comment: Please resume your normal schedule. Post Discharge Appointments Primary Care Physician Name Of Family Doctor/PCP: Kody Dunn [facility] Time of Appointment with PCP: Please follow-up as needed. Provider Appointment Comment: [address] [place] [address] Gymnastics Instructor Name of Gymnastics Instructor: [facility] - Crisis Peer Phone Number of Gymnastics Instructor: [phone] Gymnastics Instructor Appointment Comment: Please resume your normal schedule. Contact Information Discharge Discharge Address: [address] [place] [id number]
[2023-03-21] MEDS: LITHIUM CARBONATE SLOW REL 300 MG TAB PO SCH (09:57)
[2023-03-21] MEDS: cloZAPine 100 MG TAB PO SCH (09:57)
[2023-03-21] MEDS ORDERED: cloZAPine 100 MG TAB PO ONE (21:00)
[2023-03-21] MEDS ORDERED: cloZAPine 25 MG TAB PO ONE (21:00)
[2023-03-21] MEDS: LITHIUM CARBONATE 450 MG TABCR PO SCH (21:30)
--- NOTE | 2023-03-22 08:56 | Psychiatric Progress Note ---
Date of Service March 22, 2023 Impression / Recommendations Impression 27 y/o M resident of personal [facility] with exacerbation Schizoaffective Disorder, Bipolar Type due to not taking medications [place] concerns for possible suicide attempt given recent SI with plans of walking into traffic. He is now on a 304 commitment and is unable to return to his personal chcf. [facility] referral in progress, the [facility] is currently reviewing this. MNPR due to psychosis with intermittent auditory hallucinations, guarded around peers, cannot tolerate a roommate 03/22/2023: Continues to respond to internal stimuli, ongoing psychosis but slightly less guarded today and affect a little bit brighter. No dizziness yet today, remains agreeable to consolidated dose of clozapine tonight with goal of reducing daytime dizziness. (1) Schizoaffective disorder, bipolar type: Plan 03/22/2023: Clozapine 350mg HS, continue other current medications 03/21/2023: Consolidate clozapine to 350mg HS starting tomorrow. 03/20/2023: Continue current medications and tx plan. 03/19/2023: Continue current medications and tx plan. CBC with ANC tomorrow. 03/18/2023: Continue current medications and tx plan. Will plan to consider augmentation with haldol once abilify JOSHI effects have waned over the next few weeks. 03/17/2023: * continue LiCO3 600 mg QAM & 900 mg QHS, consider consolidating to 1500 mg QHS * continue clozapine 100 mg QAM & 250 mg QHS, consider consolidating to 350 mg QHS * discontinue aripiprazole lauroxil 400 mg IM monthly, last given 10 March 2023 (so will remain at significant level for several more weeks) * anticipate adding haloperidol, but at this point that would constitute 3 concurrent antipsychotics 03/16/2023: * continue LiCO3 600 mg QAM & 900 mg QHS, consider consolidating to 1500 mg QHS * recheck lithium level tomorrow * continue clozapine 100 mg QAM & 250 mg QHS, consider consolidating to 350 mg QHS * discontinue aripiprazole lauroxil 400 mg IM monthly, last given 10 March 2023 * anticipate adding haloperidol, but at this point that would constitute 3 concurrent antipsychotics * [place] form 548 for part 304(c) "involuntary" treatment at the [facility] 03/15/2023: * continue LiCO3 600 mg QAM & 900 mg QHS, consider consolidating to 1500 mg QHS * recheck lithium level in 2 days * continue clozapine 100 mg QAM & 250 mg QHS, consider consolidating to 350 mg QHS * discontinue aripiprazole lauroxil 400 mg IM monthly, last given 10 March 2023 * discontinue aripiprazole 5 mg daily 03/14/2023: The patient was admitted to the [facility] ([facility]) on q15 min checks (behavioral with suicide precautions) for safety. The patient will participate in group, recreational, and milieu therapies and will be offered additional individual and family sessions as clinically appropriate. Pt was recently started on aripiprazole lauroxil. Since his record indicates a failed trial of oral aripiprazole in the past, I will be circumspect about discontinuing clozapine at this time. * continue LiCO3 600 mg QAM & 900 mg QHS * continue clozapine 100 mg QAM & 250 mg QHS for the time being * continue aripiprazole lauroxil 400 mg IM monthly, next due 09 April 2023 * continue aripiprazole 5 mg daily Inventory Assets Strengths: voluntary, intelligent Needs: safety and stabilization, medication adjustment Suicide Risk Level Suicide Risk Level: Moderate (q15 min suicide checks) (prior to admission reported command AH and SI with plan but mood stabilized in inpt setting, feels safe in the hospital and agrees to let nursing know if he feels unable to remain safe, has command AH or requires additional support) Risk Factors Assessment Male: Yes : Yes Do You Have Access To A Gun?: No Health Problems: No Mental Health Diagnoses: Yes Substance Use Disorders: No Previous Attempt: No Family History of Suicide: No Previous Psychiatric Hospitalization: Yes Hopelessness: No Protective Factors Assessment Employed: No Good Rapport with Provider: Yes Interval History Identifying Information NASEEM MCGEE is a 27-year-old M who currently lives in [facility], has a history of Schizoaffective Disorder, Bipolar Type, and was admitted on 03/13/23 14:14 on a 201 voluntary commitment for susanne. He was committed under part 304(c) on 03/17/2023. Chief Complaint "I'm good". Review of Systems Sleep Information Total Hours of Sleep: 6.5 Meal Information Percent Meal Consumed - Breakfast: 100 Percent Meal Consumed - Lunch: 100 Percent Meal Consumed - Dinner: 100 Subjective Subjective Patient was seen & assessed and interval progress reviewed with treatment team nursing and social work. Has not had any dizziness yet today. Continues to spend most of the day walking in the halls and observed responding to internal stimuli. Physical Exam Psychiatric Orientation: alert, oriented x 3 and + guarded Apperance: appropriately dressed and appropriately groomed Eye Contact: + fair eye contact Motor Behavior: + psychomotor agitation Speech: normal rate/rhythm/volume of speech Affect: + constricted affect Thought Process: + circumstantial thought process Thought Content: + preoccupation Suicidal Thoughts: denies suicidal intent; + reports suicidal thoughts (chronic intermittent, denies today) and + reports suicidal plan (jumping into traffic outside the hospital) Homicidal Thoughts: denies homicidal thoughts Hallucinations: + auditory hallucinations; no visual hallucinations and no tactile hallucinations Cognition: recent memory grossly intact, remote memory grossly intact, attention grossly intact and language grossly intact Estimated Intelligence: average estimated intelligence Insight: + fair insight Judgment: + poor judgement Vital Signs (Past 24 Hours) Last Vital Signs Temp 36.7 C 03/22/23 06:43 Pulse 88 03/22/23 06:43 Resp 16 03/22/23 06:43 BP 99/65 L 03/22/23 06:43 Pulse Ox 97 03/20/23 06:00 O2 Del Method Room Air 03/20/23 06:00 Results & Data ([facility]) Current Inpatient Medications Current Inpatient Medications: Current Inpatient Medications Acetaminophen (Acetaminophen 325 Mg Tab) 650 mg PO Q4H PRN PRN Reason: Headache or Minor Fever Stop: 04/12/23 15:03 Al Hydrox/Mg Hydrox/Simethicone (Aluminum/Magnesium Susp 30 Ml Udc) 30 ml PO Q4H PRN PRN Reason: GI Upset Stop: 04/12/23 15:03 Aripiprazole (Aripiprazole 400 Mg Pre-Filled Syringe) 400 mg IM Q30D VIVIAN Stop: 05/09/23 07:59 Bismuth Subsalicylate (Bismuth Subsalicylate Liqd 236 Ml) 15 ml PO PRN PRN PRN Reason: Loose Stool Stop: 04/12/23 15:03 Clozapine (Clozapine 25 Mg Tab) 50 mg PO HS VIVIAN Stop: 04/21/23 21:59 Clozapine (Clozapine 100 Mg Tab) 300 mg PO HS VIVIAN Stop: 04/21/23 21:59 Docusate Calcium (Docusate Calcium 240 Mg Capsule) 240 mg PO DAILY PRN PRN Reason: constipation Stop: 04/12/23 16:39 Hydroxyzine HCl (Hydroxyzine Hcl 25 Mg Tab) 50 mg PO HSZ PRN PRN Reason: Insomnia Stop: 04/12/23 15:03 Hydroxyzine HCl (Hydroxyzine Hcl 25 Mg Tab) 25 mg PO Q4H PRN PRN Reason: Anxiety Stop: 04/12/23 15:03 [place] Carbonate ([place] Carbonate Slow Rel 300 Mg Tab) 600 mg PO QAM VIVIAN Stop: 04/13/23 08:59 Last Admin: 03/21/23 09:57 Dose: 600 mg [place] Carbonate ([place] Carbonate 450 Mg Tabcr) 900 mg PO HS VIVIAN Stop: 04/12/23 21:59 Last Admin: 03/21/23 21:30 Dose: 900 mg Magnesium Hydroxide (Magnesium Hydroxide Susp 30 Ml Udc) 30 ml PO DAILY PRN PRN Reason: Constipation Stop: 04/12/23 15:03 Polyethylene Glycol (Polyethylene (Miralax) 17 Gm Pack) 17 gm PO DAILY PRN PRN Reason: constipation Stop: 04/12/23 16:17 Sodium Chloride (Sodium Chloride 0.65% Na Soln 45 Ml ([place])) 1 - 2 sprays NA PRN PRN PRN Reason: Nasal Dryness/Congestion Stop: 04/12/23 15:03 Mental Health & Subst Abuse Tx Psychiatrist Name of Psychiatrist: Kody Rogers Psychiatrist's Time of Appointment with Psychiatrist: Please follow-up as needed. Psychiatric Appointment Comment: [address] [place] [address] Therapist Name of Therapist: [facility] Therapist's Therapy Appointment Comment: [address], [address], [place] [address] Cooler Tender Name of Cooler Tender: [employer] Lisseth [facility] Phone Number for Cooler Tender: [phone] Case Management Appointment Comment: Please resume your normal schedule. Post Discharge Appointments Primary Care Physician Name Of Family Doctor/PCP: Kody Dunn Primary [facility] Time of Appointment with PCP: Please follow-up as needed. Provider Appointment Comment: [address] [place] [address] Metal Pourer Name of Metal Pourer: [facility] - Crisis Peer Phone Number of Metal Pourer: [phone] Metal Pourer Appointment Comment: Please resume your normal schedule. Contact Information Discharge Discharge Address: [address] [place] [id number]
[2023-03-22] MEDS: LITHIUM CARBONATE SLOW REL 300 MG TAB PO SCH (09:42)
[2023-03-22] MEDS: cloZAPine 100 MG TAB PO SCH (21:00)
[2023-03-22] MEDS: cloZAPine 25 MG TAB PO SCH (21:00)
[2023-03-22] MEDS: LITHIUM CARBONATE 450 MG TABCR PO SCH (21:01)
[2023-03-23] MEDS: LITHIUM CARBONATE SLOW REL 300 MG TAB PO SCH (09:03)
--- NOTE | 2023-03-23 09:05 | Psychiatric Progress Note ---
Date of Service March 23, 2023 Impression / Recommendations Impression 27 y/o M resident of personal fdc with exacerbation Schizoaffective Disorder, Bipolar Type due to not taking medications [place] concerns for possible suicide attempt given recent SI with plans of walking into traffic. He is now on a 304 commitment and is unable to return to his personal fdc. [facility] referral in progress, the [facility] is currently reviewing. No other safe disposition options at this time. MNPR due to psychosis with intermittent auditory hallucinations, guarded around peers, cannot tolerate a roommate 03/23/2023: Continues to respond to internal stimuli, ongoing psychosis but less guarded today and affect brighter and subjective mood better today with less dizziness with consolidation of clozapine at HS. Helped him clip his nails. (1) Schizoaffective disorder, bipolar type: Plan 03/23/2023: Continue with current medications and tx plan. 03/22/2023: Clozapine 350mg HS, continue other current medications 03/21/2023: Consolidate clozapine to 350mg HS starting tomorrow. 03/20/2023: Continue current medications and tx plan. 03/19/2023: Continue current medications and tx plan. CBC with ANC tomorrow. 03/18/2023: Continue current medications and tx plan. Will plan to consider augmentation with haldol once abilify JOSHI effects have waned over the next few weeks. 03/17/2023: * continue LiCO3 600 mg QAM & 900 mg QHS, consider consolidating to 1500 mg QHS * continue clozapine 100 mg QAM & 250 mg QHS, consider consolidating to 350 mg QHS * discontinue aripiprazole lauroxil 400 mg IM monthly, last given 10 March 2023 (so will remain at significant level for several more weeks) * anticipate adding haloperidol, but at this point that would constitute 3 concurrent antipsychotics 03/16/2023: * continue LiCO3 600 mg QAM & 900 mg QHS, consider consolidating to 1500 mg QHS * recheck lithium level tomorrow * continue clozapine 100 mg QAM & 250 mg QHS, consider consolidating to 350 mg QHS * discontinue aripiprazole lauroxil 400 mg IM monthly, last given 10 March 2023 * anticipate adding haloperidol, but at this point that would constitute 3 concurrent antipsychotics * [place] 785 [place] 304(c) "involuntary" treatment at the [facility] 03/15/2023: * continue LiCO3 600 mg QAM & 900 mg QHS, consider consolidating to 1500 mg QHS * recheck lithium level in 2 days * continue clozapine 100 mg QAM & 250 mg QHS, consider consolidating to 350 mg QHS * discontinue aripiprazole lauroxil 400 mg IM monthly, last given 10 March 2023 * discontinue aripiprazole 5 mg daily 03/14/2023: The patient was admitted to the [facility] ([facility] health unit) on q15 min checks (behavioral with suicide precautions) for safety. The patient will participate in group, recreational, and milieu therapies and will be offered additional individual and family sessions as clinically appropriate. Pt was recently started on aripiprazole lauroxil. Since his record indicates a failed trial of oral aripiprazole in the past, I will be circumspect about discontinuing clozapine at this time. * continue LiCO3 600 mg QAM & 900 mg QHS * continue clozapine 100 mg QAM & 250 mg QHS for the time being * continue aripiprazole lauroxil 400 mg IM monthly, next due 09 April 2023 * continue aripiprazole 5 mg daily Inventory Assets Strengths: voluntary, intelligent Needs: safety and stabilization, medication adjustment Suicide Risk Level Suicide Risk Level: Moderate (q15 min suicide checks) (prior to admission reported command AH and SI with plan but mood stabilized in inpt setting, feels safe in the hospital and agrees to let nursing know if he feels unable to remain safe, has command AH or requires additional support) Risk Factors Assessment Male: Yes : Yes Do You Have Access To A Gun?: No Health Problems: No Mental Health Diagnoses: Yes Substance Use Disorders: No Previous Attempt: No Family History of Suicide: No Previous Psychiatric Hospitalization: Yes Hopelessness: No Protective Factors Assessment Employed: No Good Rapport with Provider: Yes Interval History Identifying Information NASEEM MCGEE is a 27-year-old M who currently lives in [facility], has a history of Schizoaffective Disorder, Bipolar Type, and was admitted on 03/13/23 14:14 on a 201 voluntary commitment for susanne. He was committed under part 304(c) on 03/17/2023. Chief Complaint "I'm good". Review of Systems Sleep Information Total Hours of Sleep: 6.5 Meal Information Percent Meal Consumed - Breakfast: 100 Percent Meal Consumed - Lunch: 100 Percent Meal Consumed - Dinner: 100 Subjective Subjective Patient was seen & assessed and interval progress reviewed with treatment team nursing and social work. Tries to go to groups but still can only tolerate a few minutes at a time. Continues to pace in the halls and respond to internal stimuli. States his mood is good today. Denies any current dizziness, feels this has lessened with consolidating the clozapine. Physical Exam Psychiatric Orientation: alert, oriented x 3 and + guarded Apperance: appropriately dressed and appropriately groomed Eye Contact: + fair eye contact Motor Behavior: + psychomotor agitation Speech: normal rate/rhythm/volume of speech Affect: + constricted affect Thought Process: + circumstantial thought process Thought Content: + preoccupation Suicidal Thoughts: denies suicidal intent; + reports suicidal thoughts (chronic intermittent, denies today) and + reports suicidal plan (jumping into traffic outside the hospital) Homicidal Thoughts: denies homicidal thoughts Hallucinations: + auditory hallucinations; no visual hallucinations and no tactile hallucinations Cognition: recent memory grossly intact, remote memory grossly intact, attention grossly intact and language grossly intact Estimated Intelligence: average estimated intelligence Insight: + fair insight Judgment: + poor judgement Vital Signs (Past 24 Hours) Last Vital Signs Temp 36.6 C 03/23/23 06:35 Pulse 84 03/23/23 06:39 Resp 16 03/23/23 06:35 BP 132/85 03/23/23 06:39 Pulse Ox 97 03/20/23 06:00 O2 Del Method Room Air 03/20/23 06:00 Results & Data ([facility]) Current Inpatient Medications Current Inpatient Medications: Current Inpatient Medications Acetaminophen (Acetaminophen 325 Mg Tab) 650 mg PO Q4H PRN PRN Reason: Headache or Minor Fever Stop: 04/12/23 15:03 Al Hydrox/Mg Hydrox/Simethicone (Aluminum/Magnesium Susp 30 Ml Udc) 30 ml PO Q4H PRN PRN Reason: GI Upset Stop: 04/12/23 15:03 Aripiprazole (Aripiprazole 400 Mg Pre-Filled Syringe) 400 mg IM Q30D VIVIAN Stop: 05/09/23 07:59 Bismuth Subsalicylate (Bismuth Subsalicylate Liqd 236 Ml) 15 ml PO PRN PRN PRN Reason: Loose Stool Stop: 04/12/23 15:03 Clozapine (Clozapine 25 Mg Tab) 50 mg PO HS VIVIAN Stop: 04/21/23 21:59 Last Admin: 03/22/23 21:00 Dose: 50 mg Clozapine (Clozapine 100 Mg Tab) 300 mg PO HS VIVIAN Stop: 04/21/23 21:59 Last Admin: 03/22/23 21:00 Dose: 300 mg Docusate Calcium (Docusate Calcium 240 Mg Capsule) 240 mg PO DAILY PRN PRN Reason: constipation Stop: 04/12/23 16:39 Hydroxyzine HCl (Hydroxyzine Hcl 25 Mg Tab) 50 mg PO HSZ PRN PRN Reason: Insomnia Stop: 04/12/23 15:03 Hydroxyzine HCl (Hydroxyzine Hcl 25 Mg Tab) 25 mg PO Q4H PRN PRN Reason: Anxiety Stop: 04/12/23 15:03 [place] Carbonate ([place] Carbonate Slow Rel 300 Mg Tab) 600 mg PO QAM VIVIAN Stop: 04/13/23 08:59 Last Admin: 03/23/23 09:03 Dose: 600 mg [place] Carbonate ([place] Carbonate 450 Mg Tabcr) 900 mg PO HS VIVIAN Stop: 04/12/23 21:59 Last Admin: 03/22/23 21:01 Dose: 900 mg Magnesium Hydroxide (Magnesium Hydroxide Susp 30 Ml Udc) 30 ml PO DAILY PRN PRN Reason: Constipation Stop: 04/12/23 15:03 Polyethylene Glycol (Polyethylene (Miralax) 17 Gm Pack) 17 gm PO DAILY PRN PRN Reason: constipation Stop: 04/12/23 16:17 Sodium Chloride (Sodium Chloride 0.65% Na Soln 45 Ml ([place])) 1 - 2 sprays NA PRN PRN PRN Reason: Nasal Dryness/Congestion Stop: 04/12/23 15:03 Mental Health & Subst Abuse Tx Psychiatrist Name of Psychiatrist: Kody Rogers Psychiatrist's Time of Appointment with Psychiatrist: Please follow-up as needed. Psychiatric Appointment Comment: [address] [place] [address] Therapist Name of Therapist: Cheko Zamarripa Therapist's Therapy Appointment Comment: [address], [address], [place] [address] Package Dye Stand Loader Name of Package Dye Stand Loader: [facility] Lisseth Rose Phone Number for Package Dye Stand Loader: [phone] Case Management Appointment Comment: Please resume your normal schedule. Post Discharge Appointments Primary Care Physician Name Of Family Doctor/PCP: Kody Dunn [facility] Time of Appointment with PCP: Please follow-up as needed. Provider Appointment Comment: [address] [place] [address] Blood Bank Laboratory Technologist Name of Blood Bank Laboratory Technologist: [facility] Peer Phone Number of Blood Bank Laboratory Technologist: [phone] Blood Bank Laboratory Technologist Appointment Comment: Please resume your normal schedule. Contact Information Discharge Discharge Address: [address] [place] [address] [place] [id number]
[2023-03-23] MEDS: LITHIUM CARBONATE 450 MG TABCR PO SCH (21:13)
[2023-03-23] MEDS: cloZAPine 100 MG TAB PO SCH (21:13)
[2023-03-23] MEDS: cloZAPine 25 MG TAB PO SCH (21:13)
[2023-03-24] MEDS: LITHIUM CARBONATE SLOW REL 300 MG TAB PO SCH (09:02)
--- NOTE | 2023-03-24 16:22 | Psychiatric Progress Note ---
Date of Service March 24, 2023 Impression / Recommendations Impression 27 y/o M resident of personal long-term with exacerbation Schizoaffective Disorder, Bipolar Type due to not taking medications [place] concerns for possible suicide attempt given recent SI with plans of walking into traffic. He is now on a 304 commitment and is unable to return to his personal long-term. [facility] referral in progress, the [facility] is currently reviewing. No other safe disposition options at this time. MNPR due to psychosis with intermittent auditory hallucinations, guarded around peers, cannot tolerate a roommate 03/24/2023: Continues to respond to internal stimuli, ongoing psychosis but less guarded overall, interacting a bit more and initiating more conversation for brief moments. Tolerating adjustment to consolidated clozapine well with less subjective dizziness. (1) Schizoaffective disorder, bipolar type: Plan 03/24/2023: Continue with current medications and tx plan. 03/23/2023: Continue with current medications and tx plan. 03/22/2023: Clozapine 350mg HS, continue other current medications 03/21/2023: Consolidate clozapine to 350mg HS starting tomorrow. 03/20/2023: Continue current medications and tx plan. 03/19/2023: Continue current medications and tx plan. CBC with ANC tomorrow. 03/18/2023: Continue current medications and tx plan. Will plan to consider aug mentation with haldol once abilify JOSHI effects have waned over the next few weeks. 03/17/2023: * continue LiCO3 600 mg QAM & 900 mg QHS, consider consolidating to 1500 mg QHS * continue clozapine 100 mg QAM & 250 mg QHS, consider consolidating to 350 mg QHS * discontinue aripiprazole lauroxil 400 mg IM monthly, last given 10 March 2023 (so will remain at significant level for several more weeks) * anticipate adding haloperidol, but at this point that would constitute 3 concurrent antipsychotics 03/16/2023: * continue LiCO3 600 mg QAM & 900 mg QHS, consider consolidating to 1500 mg QHS * recheck lithium level tomorrow * continue clozapine 100 mg QAM & 250 mg QHS, consider consolidating to 350 mg QHS * discontinue aripiprazole lauroxil 400 mg IM monthly, last given 10 March 2023 * anticipate adding haloperidol, but at this point that would constitute 3 concurrent antipsychotics * completed [place] form MH 785 for part 304(c) "involuntary" treatment at the [facility] 03/15/2023: * continue LiCO3 600 mg QAM & 900 mg QHS, consider consolidating to 1500 mg QHS * recheck lithium level in 2 days * continue clozapine 100 mg QAM & 250 mg QHS, consider consolidating to 350 mg QHS * discontinue aripiprazole lauroxil 400 mg IM monthly, last given 10 March 2023 * discontinue aripiprazole 5 mg daily 03/14/2023: The patient was admitted to the [facility] ([facility] health unit) on q15 min checks (behavioral with suicide precautions) for safety. The patient will participate in group, recreational, and milieu therapies and will be offered additional individual and family sessions as clinically appropriate. Pt was recently started on aripiprazole lauroxil. Since his record indicates a failed trial of oral aripiprazole in the past, I will be circumspect about discontinuing clozapine at this time. * continue LiCO3 600 mg QAM & 900 mg QHS * continue clozapine 100 mg QAM & 250 mg QHS for the time being * continue aripiprazole lauroxil 400 mg IM monthly, next due 09 April 2023 * continue aripiprazole 5 mg daily Inventory Assets Strengths: voluntary, intelligent Needs: safety and stabilization, medication adjustment Suicide Risk Level Suicide Risk Level: Moderate (q15 min suicide checks) (prior to admission reported command AH and SI with plan but mood stabilized in inpt setting, feels safe in the hospital and agrees to let nursing know if he feels unable to remain safe, has command AH or requires additional support) Risk Factors Assessment Male: Yes : Yes Do You Have Access To A Gun?: No Health Problems: No Mental Health Diagnoses: Yes Substance Use Disorders: No Previous Attempt: No Family History of Suicide: No Previous Psychiatric Hospitalization: Yes Hopelessness: No Protective Factors Assessment Employed: No Good Rapport with Provider: Yes Interval History Identifying Information NASEEM MCGEE is a 27-year-old M who currently lives in [facility], has a history of Schizoaffective Disorder, Bipolar Type, and was admitted on 03/13/23 14:14 on a 201 voluntary commitment for susanne. He was committed under part 304(c) on 03/17/2023. Chief Complaint "I'm ok". Review of Systems Sleep Information Total Hours of Sleep: 6.5 Meal Information Percent Meal Consumed - Breakfast: 100 Percent Meal Consumed - Lunch: 50 Percent Meal Consumed - Dinner: 100 Subjective Subjective Patient was seen & assessed and interval progress reviewed with treatment team nursing and social work. Attending some groups and initiating more conversation but still prefers to spend most of his time walking in the halls listening to music and observed responding to internal stimuli. Today reports his mood is "ok". Feels his dizziness is lessening since consolidating clozapine dosing. Denies any SI today. Physical Exam Psychiatric Orientation: alert, oriented x 3 and + guarded Apperance: appropriately dressed and appropriately groomed Eye Contact: + fair eye contact Motor Behavior: + psychomotor agitation Speech: normal rate/rhythm/volume of speech Affect: + constricted affect Thought Process: + circumstantial thought process Thought Content: + preoccupation Suicidal Thoughts: denies suicidal intent; + reports suicidal thoughts (chronic intermittent, denies today) and + reports suicidal plan (jumping into traffic outside the hospital) Homicidal Thoughts: denies homicidal thoughts Hallucinations: + auditory hallucinations; no visual hallucinations and no tactile hallucinations Cognition: recent memory grossly intact, remote memory grossly intact, attention grossly intact and language grossly intact Estimated Intelligence: average estimated intelligence Insight: + fair insight Judgment: + poor judgement Vital Signs (Past 24 Hours) Last Vital Signs Temp 36.9 C 03/24/23 06:44 Pulse 89 03/24/23 06:44 Resp 16 03/24/23 06:44 BP 113/72 03/24/23 06:44 Pulse Ox 97 03/20/23 06:00 O2 Del Method Room Air 03/20/23 06:00 Results & Data ([facility]) Current Inpatient Medications Current Inpatient Medications: Current Inpatient Medications Acetaminophen (Acetaminophen 325 Mg Tab) 650 mg PO Q4H PRN PRN Reason: Headache or Minor Fever Stop: 04/12/23 15:03 Al Hydrox/Mg Hydrox/Simethicone (Aluminum/Magnesium Susp 30 Ml Udc) 30 ml PO Q4H PRN PRN Reason: GI Upset Stop: 04/12/23 15:03 Aripiprazole (Aripiprazole 400 Mg Pre-Filled Syringe) 400 mg IM Q30D VIVIAN Stop: 05/09/23 07:59 Bismuth Subsalicylate (Bismuth Subsalicylate Liqd 236 Ml) 15 ml PO PRN PRN PRN Reason: Loose Stool Stop: 04/12/23 15:03 Clozapine (Clozapine 25 Mg Tab) 50 mg PO HS VIVIAN Stop: 04/21/23 21:59 Last Admin: 03/23/23 21:13 Dose: 50 mg Clozapine (Clozapine 100 Mg Tab) 300 mg PO HS VIVIAN Stop: 04/21/23 21:59 Last Admin: 03/23/23 21:13 Dose: 300 mg Docusate Calcium (Docusate Calcium 240 Mg Capsule) 240 mg PO DAILY PRN PRN Reason: constipation Stop: 04/12/23 16:39 Hydroxyzine HCl (Hydroxyzine Hcl 25 Mg Tab) 50 mg PO HSZ PRN PRN Reason: Insomnia Stop: 04/12/23 15:03 Hydroxyzine HCl (Hydroxyzine Hcl 25 Mg Tab) 25 mg PO Q4H PRN PRN Reason: Anxiety Stop: 04/12/23 15:03 [place] Carbonate ([place] Carbonate Slow Rel 300 Mg Tab) 600 mg PO QAM VIVIAN Stop: 04/13/23 08:59 Last Admin: 03/24/23 09:02 Dose: 600 mg [place] Carbonate ([place] Carbonate 450 Mg Tabcr) 900 mg PO HS VIVIAN Stop: 04/12/23 21:59 Last Admin: 03/23/23 21:13 Dose: 900 mg Magnesium Hydroxide (Magnesium Hydroxide Susp 30 Ml Udc) 30 ml PO DAILY PRN PRN Reason: Constipation Stop: 04/12/23 15:03 Polyethylene Glycol (Polyethylene (Miralax) 17 Gm Pack) 17 gm PO DAILY PRN PRN Reason: constipation Stop: 04/12/23 16:17 Sodium Chloride (Sodium Chloride 0.65% Na Soln 45 Ml ([place])) 1 - 2 sprays NA PRN PRN PRN Reason: Nasal Dryness/Congestion Stop: 04/12/23 15:03 Mental Health & Subst Abuse Tx Psychiatrist Name of Psychiatrist: Kody Rogers Psychiatrist's Time of Appointment with Psychiatrist: Please follow-up as needed. Psychiatric Appointment Comment: [address] [place] [address] Therapist Name of Therapist: Cheko Zamarripa Therapist's Therapy Appointment Comment: [address] [facility] [address], [address], [place] [address] Director Of Physician Practices Name of Director Of Physician Practices: [facility] Phone Number for Director Of Physician Practices: [phone] Case Management Appointment Comment: Please resume your normal schedule. Post Discharge Appointments Primary Care Physician Name Of Family Doctor/PCP: Kody Dunn Primary [facility] Time of Appointment with PCP: Please follow-up as needed. Provider Appointment Comment: [address] [place] [address] Physiotherapist'S Assistant Name of Physiotherapist'S Assistant: [facility] Peer Phone Number of Physiotherapist'S Assistant: [phone] Physiotherapist'S Assistant Appointment Comment: Please resume your normal schedule. Contact Information Discharge Discharge Address: [address] [place], [place] [address] [phone]
[2023-03-24] MEDS: cloZAPine 100 MG TAB PO SCH (21:04)
[2023-03-24] MEDS: cloZAPine 25 MG TAB PO SCH (21:05)
[2023-03-24] MEDS: LITHIUM CARBONATE 450 MG TABCR PO SCH (21:06)
[2023-03-25] MEDS: LITHIUM CARBONATE SLOW REL 300 MG TAB PO SCH (09:10)
--- NOTE | 2023-03-25 10:07 | Psychiatric Progress Note ---
Date of Service March 25, 2023 Impression / Recommendations Impression Reviewed care by Dr. Bloom in italics. 27 y/o M resident of personal jail with exacerbation Schizoaffective Disorder, Bipolar Type due to not taking medications [place] concerns for possible suicide attempt given recent SI with plans of walking into traffic. He is now on a 304 commitment and is unable to return to his personal jail. [facility] referral in progress, the [facility] is currently reviewing. No other safe disposition options at this time. MNPR due to psychosis with intermittent auditory hallucinations, guarded around peers, cannot tolerate a roommate 03/25/2023: stabilizing in milieu with nursing support, would decompensate readily outside of hospital. (1) Schizoaffective disorder, bipolar type: Plan 03/25/2023: tolerating consolidation of clozaril to hs. 03/24/2023: Continue with current medications and tx plan. 03/23/2023: Continue with current medications and tx plan. 03/22/2023: Clozapine 350mg HS, continue other current medications 03/21/2023: Consolidate clozapine to 350mg HS starting tomorrow. 03/20/2023: Continue current medications and tx plan. 03/19/2023: Continue current medications and tx plan. CBC with ANC tomorrow. 03/18/2023: Continue current medications and tx plan. Will plan to consider augmentation with haldol once abilify JOSHI effects have waned over the next few weeks. 03/17/2023: * continue LiCO3 600 mg QAM & 900 mg QHS, consider consolidating to 1500 mg QHS * continue clozapine 100 mg QAM & 250 mg QHS, consider consolidating to 350 mg QHS * discontinue aripiprazole lauroxil 400 mg IM monthly, last given 10 March 2023 (so will remain at significant level for several more weeks) * anticipate adding haloperidol, but at this point that would constitute 3 concurrent antipsychotics 03/16/2023: * continue LiCO3 600 mg QAM & 900 mg QHS, consider consolidating to 1500 mg QHS * recheck lithium level tomorrow * continue clozapine 100 mg QAM & 250 mg QHS, consider consolidating to 350 mg QHS * discontinue aripiprazole lauroxil 400 mg IM monthly, last given 10 March 2023 * anticipate adding haloperidol, but at this point that would constitute 3 concurrent antipsychotics * completed [place] form MH 785 for part 304(c) "involuntary" treatment at the [facility] 03/15/2023: * continue LiCO3 600 mg QAM & 900 mg QHS, consider consolidating to 1500 mg QHS * recheck lithium level in 2 days * continue clozapine 100 mg QAM & 250 mg QHS, consider consolidating to 350 mg QHS * discontinue aripiprazole lauroxil 400 mg IM monthly, last given 10 March 2023 * discontinue aripiprazole 5 mg daily 03/14/2023: The patient was admitted to the [facility] ([facility]) on q15 min checks (behavioral with suicide precautions) for safety. The patient will participate in group, recreational, and milieu therapies and will be offered additional individual and family sessions as clinically appropriate. Pt was recently started on aripiprazole lauroxil. Since his record indicates a failed trial of oral aripiprazole in the past, I will be circumspect about discontinuing clozapine at this time. * continue LiCO3 600 mg QAM & 900 mg QHS * continue clozapine 100 mg QAM & 250 mg QHS for the time being * continue aripiprazole lauroxil 400 mg IM monthly, next due 09 April 2023 * continue aripiprazole 5 mg daily Inventory Assets Strengths: voluntary, intelligent Needs: safety and stabilization, medication adjustment Suicide Risk Level Suicide Risk Level: Moderate (q15 min suicide checks) Risk Factors Assessment Male: Yes : Yes Do You Have Access To A Gun?: No Health Problems: No Mental Health Diagnoses: Yes Substance Use Disorders: No Previous Attempt: No Family History of Suicide: No Previous Psychiatric Hospitalization: Yes Hopelessness: No Protective Factors Assessment Employed: No Good Rapport with Provider: Yes Interval History Identifying Information NASEEM MCGEE is a 27-year-old M who currently lives in [facility], has a history of Schizoaffective Disorder, Bipolar Type, and was admitted on 03/13/23 14:14 on a 201 voluntary commitment for susanne. He was committed under part 304(c) on 03/17/2023. Chief Complaint "I'm feeling better." Review of Systems Sleep Information Total Hours of Sleep: 7.75 Meal Information Percent Meal Consumed - Breakfast: 50 Percent Meal Consumed - Lunch: 50 Percent Meal Consumed - Dinner: 50 Subjective Subjective Patient was seen & assessed and interval progress reviewed with nursing. No acute issues overnight. Compliant. Physical Exam Psychiatric Orientation: alert and oriented x 3 Apperance: appropriately dressed and appropriately groomed Eye Contact: + fair eye contact Motor Behavior: no abnormal motor movements Speech: normal rate/rhythm/volume of speech (yet nonspontaneous) Affect: + blunted affect Mood: no depressed mood Thought Process: + concrete thought process Thought Content: reality based without delusions Suicidal Thoughts: denies suicidal thoughts Homicidal Thoughts: denies homicidal thoughts Hallucinations: no auditory hallucinations and no visual hallucinations Cognition: attention grossly intact and language grossly intact Estimated Intelligence: consistent with education level Insight: + limited insight Judgment: + limited judgement Vital Signs (Past 24 Hours) Last Vital Signs Temp 36.6 C 03/25/23 06:39 Pulse 96 H 03/25/23 06:40 Resp 16 03/25/23 06:39 BP 92/57 L 03/25/23 06:40 Pulse Ox 97 03/20/23 06:00 O2 Del Method Room Air 03/20/23 06:00 Results & Data ([facility]) Current Inpatient Medications Current Inpatient Medications: Current Inpatient Medications Acetaminophen (Acetaminophen 325 Mg Tab) 650 mg PO Q4H PRN PRN Reason: Headache or Minor Fever Stop: 04/12/23 15:03 Al Hydrox/Mg Hydrox/Simethicone (Aluminum/Magnesium Susp 30 Ml Udc) 30 ml PO Q 4H PRN PRN Reason: GI Upset Stop: 04/12/23 15:03 Aripiprazole (Aripiprazole 400 Mg Pre-Filled Syringe) 400 mg IM Q30D VIVIAN Stop: 05/09/23 07:59 Bismuth Subsalicylate (Bismuth Subsalicylate Liqd 236 Ml) 15 ml PO PRN PRN PRN Reason: Loose Stool Stop: 04/12/23 15:03 Clozapine (Clozapine 25 Mg Tab) 50 mg PO HS VIVIAN Stop: 04/21/23 21:59 Last Admin: 03/24/23 21:05 Dose: 50 mg Clozapine (Clozapine 100 Mg Tab) 300 mg PO HS VIVIAN Stop: 04/21/23 21:59 Last Admin: 03/24/23 21:04 Dose: 300 mg Docusate Calcium (Docusate Calcium 240 Mg Capsule) 240 mg PO DAILY PRN PRN Reason: constipation Stop: 04/12/23 16:39 Hydroxyzine HCl (Hydroxyzine Hcl 25 Mg Tab) 50 mg PO HSZ PRN PRN Reason: Insomnia Stop: 04/12/23 15:03 Hydroxyzine HCl (Hydroxyzine Hcl 25 Mg Tab) 25 mg PO Q4H PRN PRN Reason: Anxiety Stop: 04/12/23 15:03 [place] Carbonate ([place] Carbonate Slow Rel 300 Mg Tab) 600 mg PO QAM VIVIAN Stop: 04/13/23 08:59 Last Admin: 03/25/23 09:10 Dose: 600 mg [place] Carbonate ([place] Carbonate 450 Mg Tabcr) 900 mg PO HS VIVIAN Stop: 04/12/23 21:59 Last Admin: 03/24/23 21:06 Dose: 900 mg Magnesium Hydroxide (Magnesium Hydroxide Susp 30 Ml Udc) 30 ml PO DAILY PRN PRN Reason: Constipation Stop: 04/12/23 15:03 Polyethylene Glycol (Polyethylene (Miralax) 17 Gm Pack) 17 gm PO DAILY PRN PRN Reason: constipation Stop: 04/12/23 16:17 Sodium Chloride (Sodium Chloride 0.65% Na Soln 45 Ml ([place])) 1 - 2 sprays NA PRN PRN PRN Reason: Nasal Dryness/Congestion Stop: 04/12/23 15:03 Mental Health & Subst Abuse Tx Psychiatrist Name of Psychiatrist: Kody Rogers Psychiatrist's Time of Appointment with Psychiatrist: Please follow-up as needed. Psychiatric Appointment Comment: [address] [place] [address] Therapist Name of Therapist: Cheko Zamarripa Therapist's Therapy Appointment Comment: [address], [facility] [address], [place] [address] Gerontology Aide Name of Gerontology Aide: [facility] Phone Number for Gerontology Aide: [phone] Case Management Appointment Comment: Please resume your normal schedule. Post Discharge Appointments Primary Care Physician Name Of Family Doctor/PCP: Kody Dunn Primary [facility] Time of Appointment with PCP: Please follow-up as needed. Provider Appointment Comment: [address] [place] [address] Mh Teacher Name of Mh Teacher: [facility] Peer Phone Number of Mh Teacher: [phone] Mh Teacher Appointment Comment: Please resume your normal schedule. Contact Information Discharge Discharge Address: [address] [place], [place] [id number]
[2023-03-25] MEDS: cloZAPine 100 MG TAB PO SCH (20:50)
[2023-03-25] MEDS: LITHIUM CARBONATE 450 MG TABCR PO SCH (20:50)
[2023-03-25] MEDS: cloZAPine 25 MG TAB PO SCH (20:51)
[2023-03-26] MEDS: LITHIUM CARBONATE SLOW REL 300 MG TAB PO SCH (08:56)
--- NOTE | 2023-03-26 13:09 | Psychiatric Progress Note ---
Date of Service March 26, 2023 Impression / Recommendations Impression Reviewed care by Dr. Bloom in italics. 27 y/o M resident of personal halfway with exacerbation Schizoaffective Disorder, Bipolar Type due to not taking medications [place] concerns for possible suicide attempt given recent SI with plans of walking into traffic. He is now on a 304 commitment and is unable to return to his personal halfway. [facility] referral in progress, the [facility] is currently reviewing. No other safe disposition options at this time. MNPR due to psychosis with intermittent auditory hallucinations, guarded around peers, cannot tolerate a roommate 03/26/2023: improving, Plan: continue current meds and tx plan. (1) Schizoaffective disorder, bipolar type: Inventory Assets Strengths: voluntary, intelligent Needs: safety and stabilization, medication adjustment Suicide Risk Level Suicide Risk Level: Moderate (q15 min suicide checks) Suicide Risk Level Comments: has chronic suicidal thoughts on which he's never acted Risk Factors Assessment Male: Yes : Yes Do You Have Access To A Gun?: No Health Problems: No Mental Health Diagnoses: Yes Substance Use Disorders: No Previous Attempt: No Family History of Suicide: No Previous Psychiatric Hospitalization: Yes Hopelessness: No Protective Factors Assessment Employed: No Good Rapport with Provider: Yes Interval History Identifying Information NASEEM CMGEE is a 27-year-old M who currently lives in [facility] has a history of Schizoaffective Disorder, Bipolar Type, and was admitted on 03/13/23 14:14 on a 201 voluntary commitment for susanne. He was committed under part 304(c) on 03/17/2023. Chief Complaint "I'm better" Review of Systems Sleep Information Total Hours of Sleep: 7.25 Meal Information Percent Meal Consumed - Breakfast: 75 Percent Meal Consumed - Lunch: 90 Percent Meal Consumed - Dinner: 100 Subjective Subjective Patient was seen & assessed and interval progress reviewed with nursing. denies that he is using headphones due to aud bernard, states he just likes to "chill" Physical Exam Psychiatric Orientation: alert and oriented x 3 Apperance: appropriately dressed and appropriately groomed Eye Contact: + fair eye contact Motor Behavior: no abnormal motor movements Speech: normal rate/rhythm/volume of speech (but non spontaneous) Affect: + blunted affect Mood: no depressed mood Thought Process: goal directed thought process Thought Content: no delusions Suicidal Thoughts: denies suicidal thoughts Homicidal Thoughts: denies homicidal thoughts Hallucinations: no auditory hallucinations and no visual hallucinations Cognition: attention grossly intact and language grossly intact Estimated Intelligence: consistent with education level Insight: + limited insight Judgment: + limited judgement Vital Signs (Past 24 Hours) Last Vital Signs Temp 36.8 C 03/26/23 06:41 Pulse 92 H 03/26/23 06:42 Resp 16 03/26/23 06:41 BP 110/73 03/26/23 06:42 Pulse Ox 97 03/20/23 06:00 O2 Del Method Room Air 03/20/23 06:00 Results & Data ([facility]) Current Inpatient Medications Current Inpatient Medications: Current Inpatient Medications Acetaminophen (Acetaminophen 325 Mg Tab) 650 mg PO Q4H PRN PRN Reason: Headache or Minor Fever Stop: 04/12/23 15:03 Al Hydrox/Mg Hydrox/Simethicone (Aluminum/Magnesium Susp 30 Ml Udc) 30 ml PO Q4H PRN PRN Reason: GI Upset Stop: 04/12/23 15:03 Aripiprazole (Aripiprazole 400 Mg Pre-Filled Syringe) 400 mg IM Q30D VIVIAN Stop: 05/09/23 07:59 Bismuth Subsalicylate (Bismuth Subsalicylate Liqd 236 Ml) 15 ml PO PRN PRN PRN Reason: Loose Stool Stop: 04/12/23 15:03 Clozapine (Clozapine 25 Mg Tab) 50 mg PO HS VIVIAN Stop: 04/21/23 21:59 Last Admin: 03/25/23 20:51 Dose: 50 mg Clozapine (Clozapine 100 Mg Tab) 300 mg PO HS VIVIAN Stop: 04/21/23 21:59 Last Admin: 03/25/23 20:50 Dose: 300 mg Docusate Calcium (Docusate Calcium 240 Mg Capsule) 240 mg PO DAILY PRN PRN Reason: constipation Stop: 04/12/23 16:39 Hydroxyzine HCl (Hydroxyzine Hcl 25 Mg Tab) 50 mg PO HSZ PRN PRN Reason: Insomnia Stop: 04/12/23 15:03 Hydroxyzine HCl (Hydroxyzine Hcl 25 Mg Tab) 25 mg PO Q4H PRN PRN Reason: Anxiety Stop: 04/12/23 15:03 [place] Carbonate ([place] Carbonate Slow Rel 300 Mg Tab) 600 mg PO QAM VIVIAN Stop: 04/13/23 08:59 Last Admin: 03/26/23 08:56 Dose: 600 mg [place] Carbonate ([place] Carbonate 450 Mg Tabcr) 900 mg PO HS VIVIAN Stop: 04/12/23 21:59 Last Admin: 03/25/23 20:50 Dose: 900 mg Magnesium Hydroxide (Magnesium Hydroxide Susp 30 Ml Udc) 30 ml PO DAILY PRN PRN Reason: Constipation Stop: 04/12/23 15:03 Polyethylene Glycol (Polyethylene (Miralax) 17 Gm Pack) 17 gm PO DAILY PRN PRN Reason: constipation Stop: 04/12/23 16:17 Sodium Chloride (Sodium Chloride 0.65% Na Soln 45 Ml ([place])) 1 - 2 sprays NA PRN PRN PRN Reason: Nasal Dryness/Congestion Stop: 04/12/23 15:03 Mental Health & Subst Abuse Tx Psychiatrist Name of Psychiatrist: Kody Rogers Psychiatrist's Time of Appointment with Psychiatrist: Please follow-up as needed. Psychiatric Appointment Comment: [address] [place] [address] Therapist Name of Therapist: [facility] [place] Therapist's Therapy Appointment Comment: [address] [facility] [address], [facility] [address], [place] [address] Flight Control Specialist Name of Flight Control Specialist: [facility] Lisseth [place] Phone Number for Flight Control Specialist: [phone] Case Management Appointment Comment: Please resume your normal schedule. Post Discharge Appointments Primary Care Physician Name Of Family Doctor/PCP: Kody Dunn Primary Care Time of Appointment with PCP: Please follow-up as needed. Provider Appointment Comment: [address] [place] [address] Machine Silver Stripper Name of Machine Silver Stripper: [facility] Peer Phone Number of Machine Silver Stripper: [phone] Machine Silver Stripper Appointment Comment: Please resume your normal schedule. Contact Information Discharge Discharge Address: [address] [place], [place] [id number]
[2023-03-26] MEDS: cloZAPine 25 MG TAB PO SCH (21:24)
[2023-03-26] MEDS: cloZAPine 100 MG TAB PO SCH (21:24)
[2023-03-26] MEDS: LITHIUM CARBONATE 450 MG TABCR PO SCH (21:25)
[2023-03-27 07:50] LABS: Basophils % (auto) 0.9 %; Eosinophils # (auto) 0.38 K/uL (0-0.50); Eosinophils % (auto) 3.3 %; Hematocrit (blood only) 47.4 % (42.0-52.0); Hemoglobin 15.7 g/dl (14.0-18.0); Immature Granulocytes # (auto) 0.06 K/uL (0.01-0.20); Immature Granulocytes % (auto) 0.5 %; Lymphocytes # (auto) 2.91 K/uL (1.2-3.4); Lymphocytes % (auto) 25.3 %; Mean Corpuscular Hemoglobin 27.5 pg (25.0-34.0); Mean Corpuscular Hgb Conc 33.1 g/dL (32.0-36.0); Mean Corpuscular Volume 83.2 fL (80.0-100.0); Mean Platelet Volume 10.5 fL (9.4-12.4); Monocytes # (auto) 0.95 K/uL (0.11-0.59); Monocytes % (auto) 8.2 %; Neutrophils # (auto) 7.12 K/uL (1.40-6.50); Neutrophils % (auto) 61.8 %; Platelet Count 326 K/uL (130-400); RDW Coefficient of Variation 12.9 % (11.5-14.5); RDW Standard Deviation 38.8 fL (36.4-46.3); White Blood Count 11.52 K/ul (4.8-10.8)
[2023-03-27] MEDS: LITHIUM CARBONATE SLOW REL 300 MG TAB PO SCH (08:25)
--- NOTE | 2023-03-27 13:16 | Psychiatric Progress Note ---
Date of Service March 27, 2023 Impression / Recommendations Impression Reviewed care by Dr. Bloom in italics. 27 y/o M resident of personal chcf with exacerbation Schizoaffective Disorder, Bipolar Type due to not taking medications [place] concerns for possible suicide attempt given recent SI with plans of walking into traffic. He is now on a 304 commitment and is unable to return to his personal chcf. [facility] referral in progress, the [facility] is currently reviewing. No other safe disposition options at this time. MNPR due to hx psychosis with intermittent auditory hallucinations, guarded around peers, cannot tolerate a roommate 03/27/2023: improved Plan: continue current meds and tx plan. (1) Schizoaffective disorder, bipolar type: Inventory Assets Strengths: voluntary, intelligent Needs: safety and stabilization, medication adjustment Suicide Risk Level Suicide Risk Level: Moderate (q15 min suicide checks) Suicide Risk Level Comments: has chronic suicidal thoughts on which he's never acted Risk Factors Assessment Male: Yes : Yes Do You Have Access To A Gun?: No Health Problems: No Mental Health Diagnoses: Yes Substance Use Disorders: No Previous Attempt: No Family History of Suicide: No Previous Psychiatric Hospitalization: Yes Hopelessness: No Protective Factors Assessment Employed: No Good Rapport with Provider: Yes Interval History Identifying Information NASEEM MCGEE is a 27-year-old M who currently lives in [facility], has a history of Schizoaffective Disorder, Bipolar Type, and was admitted on 03/13/23 14:14 on a 201 voluntary commitment for susanne. He was committed under part 304(c) on 03/17/2023. Chief Complaint cooperative with ongoing stay Review of Systems Sleep Information Total Hours of Sleep: 7.5 Meal Information Percent Meal Consumed - Breakfast: 100 Percent Meal Consumed - Lunch: 100 Percent Meal Consumed - Dinner: 100 Subjective Subjective Patient was seen & assessed and interval progress reviewed with treatment team. No new issues. Patient denies SI/HI/bernard and is more spontaneous in interactions than during previous stays. Physical Exam Psychiatric alert, cooperative, speech normal rate and volume, thoughts concrete, no SI/HI/bernard. No abnormal motor movements. Vital Signs (Past 24 Hours) Last Vital Signs Temp 36.8 C 03/27/23 06:42 Pulse 93 H 03/27/23 06:42 Resp 16 03/27/23 06:42 BP 109/70 03/27/23 06:42 Pulse Ox 97 03/20/23 06:00 O2 Del Method Room Air 03/20/23 06:00 Results & Data ([facility]) Laboratory Results Laboratory Results - last 24 hr 03/27/23 06:55 WBC 11.52 H RBC 5.70 Hgb 15.7 Hct 47.4 MCV 83.2 MCH 27.5 MCHC 33.1 RDW Std Deviation 38.8 RDW Coeff of Belén 12.9 Plt Count 326 MPV 10.5 Immature Gran % (Auto) 0.5 Neut % (Auto) 61.8 Lymph % (Auto) 25.3 [place] % (Auto) 8.2 Eos % (Auto) 3.3 Baso % (Auto) 0.9 Neut # (Auto) 7.12 H Lymph # (Auto) 2.91 [place] # (Auto) 0.95 H Eos # (Auto) 0.38 Baso # (Auto) 0.10 Immature Gran # (Auto) 0.06 Current Inpatient Medications Current Inpatient Medications: Current Inpatient Medications Acetaminophen (Acetaminophen 325 Mg Tab) 650 mg PO Q4H PRN PRN Reason: Headache or Minor Fever Stop: 04/12/23 15:03 Al Hydrox/Mg Hydrox/Simethicone (Aluminum/Magnesium Susp 30 Ml Udc) 30 ml PO Q4H PRN PRN Reason: GI Upset Stop: 04/12/23 15:03 Aripiprazole (Aripiprazole 400 Mg Pre-Filled Syringe) 400 mg IM Q30D VIVIAN Stop: 05/09/23 07:59 Bismuth Subsalicylate (Bismuth Subsalicylate Liqd 236 Ml) 15 ml PO PRN PRN PRN Reason: Loose Stool Stop: 04/12/23 15:03 Clozapine (Clozapine 25 Mg Tab) 50 mg PO HS VIVIAN Stop: 04/21/23 21:59 Last Admin: 03/26/23 21:24 Dose: 50 mg Clozapine (Clozapine 100 Mg Tab) 300 mg PO HS VIVIAN Stop: 04/21/23 21:59 Last Admin: 03/26/23 21:24 Dose: 300 mg Docusate Calcium (Docusate Calcium 240 Mg Capsule) 240 mg PO DAILY PRN PRN Reason: constipation Stop: 04/12/23 16:39 Hydroxyzine HCl (Hydroxyzine Hcl 25 Mg Tab) 50 mg PO HSZ PRN PRN Reason: Insomnia Stop: 04/12/23 15:03 Hydroxyzine HCl (Hydroxyzine Hcl 25 Mg Tab) 25 mg PO Q4H PRN PRN Reason: Anxiety Stop: 04/12/23 15:03 [place] Carbonate ([place] Carbonate Slow Rel 300 Mg Tab) 600 mg PO QAM VIVIAN Stop: 04/13/23 08:59 Last Admin: 03/27/23 08:25 Dose: 600 mg [place] Carbonate ([place] Carbonate 450 Mg Tabcr) 900 mg PO HS VIVIAN Stop: 04/12/23 21:59 Last Admin: 03/26/23 21:25 Dose: 900 mg Magnesium Hydroxide (Magnesium Hydroxide Susp 30 Ml Udc) 30 ml PO DAILY PRN PRN Reason: Constipation Stop: 04/12/23 15:03 Polyethylene Glycol (Polyethylene (Miralax) 17 Gm Pack) 17 gm PO DAILY PRN PRN Reason: constipation Stop: 04/12/23 16:17 Sodium Chloride (Sodium Chloride 0.65% Na Soln 45 Ml ([place])) 1 - 2 sprays NA PRN PRN PRN Reason: Nasal Dryness/Congestion Stop: 04/12/23 15:03 Mental Health & Subst Abuse Tx Psychiatrist Name of Psychiatrist: Kody Rogers Psychiatrist's Time of Appointment with Psychiatrist: Please follow-up as needed. Psychiatric Appointment Comment: [address] [place] [address] Therapist Name of Therapist: Cheko Zamarripa Therapist's Therapy Appointment Comment: [address], [facility] [address], [place] [address] Medical Resident Name of Medical Resident: [facility] [place] Phone Number for Medical Resident: [phone] Case Management Appointment Comment: Please resume your normal schedule. Post Discharge Appointments Primary Care Physician Name Of Family Doctor/PCP: Kody Dunn Primary Care Time of Appointment with PCP: Please follow-up as needed. Provider Appointment Comment: [address] [place] [address] Agate Setter Name of Agate Setter: [facility] Peer Phone Number of Agate Setter: [phone] Agate Setter Appointment Comment: Please resume your normal schedule. Contact Information Discharge Discharge Address: [address] [place] [id number]
[2023-03-27] MEDS: cloZAPine 25 MG TAB PO SCH (21:25)
[2023-03-27] MEDS: cloZAPine 100 MG TAB PO SCH (21:25)
[2023-03-27] MEDS: LITHIUM CARBONATE 450 MG TABCR PO SCH (21:25)
[2023-03-28] MEDS: LITHIUM CARBONATE SLOW REL 300 MG TAB PO SCH (08:33)
--- NOTE | 2023-03-28 12:28 | Psychiatric Progress Note ---
Date of Service March 28, 2023 Impression / Recommendations Impression Reviewed care by Dr. Bloom in italics. 27 y/o M resident of personal custodial with exacerbation Schizoaffective Disorder, Bipolar Type due to not taking medications [place] concerns for possible suicide attempt given recent SI with plans of walking into traffic. He is now on a 304 commitment and is unable to return to his personal custodial. [facility] referral in progress, the [facility] is currently reviewing. No other safe disposition options at this time. [facility] due to hx psychosis with intermittent auditory hallucinations, guarded around peers, cannot tolerate a roommate 03/28/2023: improved Plan: continue current meds and tx plan pending [facility] diversion meeting. Inventory Assets Strengths: voluntary, intelligent Needs: safety and stabilization, medication adjustment Suicide Risk Level Suicide Risk Level: Moderate (q15 min suicide checks) Suicide Risk Level Comments: has chronic suicidal thoughts on which he's never acted Risk Factors Assessment Male: Yes : Yes Do You Have Access To A Gun?: No Health Problems: No Mental Health Diagnoses: Yes Substance Use Disorders: No Previous Attempt: No Family History of Suicide: No Previous Psychiatric Hospitalization: Yes Hopelessness: No Protective Factors Assessment Employed: No Good Rapport with Provider: Yes Interval History Identifying Information NASEEM MCGEE is a 27-year-old M who currently lives in [facility], has a history of Schizoaffective Disorder, Bipolar Type, and was admitted on 03/13/23 14:14 on a 201 voluntary commitment for susanne. He was committed under part 304(c) on 03/17/2023. Chief Complaint cooperative with stay Review of Systems Sleep Information Total Hours of Sleep: 7.25 Meal Information Percent Meal Consumed - Breakfast: 100 Percent Meal Consumed - Lunch: 100 Percent Meal Consumed - Dinner: 100 Subjective Subjective Patient was seen & assessed and interval progress reviewed with nursing and social work. No issues overnight. Compliant with meds. walks frequently but no pacing/akathisia. Physical Exam Psychiatric alert, cooperative, kempt, thoughts concrete, denies SI/HI/bernard/del. Vital Signs (Past 24 Hours) Last Vital Signs Temp 36.6 C 03/28/23 06:40 Pulse 93 H 03/28/23 06:41 Resp 16 03/28/23 06:40 BP 109/67 03/28/23 06:41 Pulse Ox 97 03/20/23 06:00 O2 Del Method Room Air 03/20/23 06:00 Results & Data ([facility]) Current Inpatient Medications Current Inpatient Medications: Current Inpatient Medications Acetaminophen (Acetaminophen 325 Mg Tab) 650 mg PO Q4H PRN PRN Reason: Headache or Minor Fever Stop: 04/12/23 15:03 Al Hydrox/Mg Hydrox/Simethicone (Aluminum/Magnesium Susp 30 Ml Udc) 30 ml PO Q4H PRN PRN Reason: GI Upset Stop: 04/12/23 15:03 Aripiprazole (Aripiprazole 400 Mg Pre-Filled Syringe) 400 mg IM Q30D VIVIAN Stop: 05/09/23 07:59 Bismuth Subsalicylate (Bismuth Subsalicylate Liqd 236 Ml) 15 ml PO PRN PRN PRN Reason: Loose Stool Stop: 04/12/23 15:03 Clozapine (Clozapine 25 Mg Tab) 50 mg PO HS VIVIAN Stop: 04/21/23 21:59 Last Admin: 03/27/23 21:25 Dose: 50 mg Clozapine (Clozapine 100 Mg Tab) 300 mg PO HS VIVIAN Stop: 04/21/23 21:59 Last Admin: 03/27/23 21:25 Dose: 300 mg Docusate Calcium (Docusate Calcium 240 Mg Capsule) 240 mg PO DAILY PRN PRN Reason: constipation Stop: 04/12/23 16:39 Hydroxyzine HCl (Hydroxyzine Hcl 25 Mg Tab) 50 mg PO HSZ PRN PRN Reason: Insomnia Stop: 04/12/23 15:03 Hydroxyzine HCl (Hydroxyzine Hcl 25 Mg Tab) 25 mg PO Q4H PRN PRN Reason: Anxiety Stop: 04/12/23 15:03 [place] Carbonate ([place] Carbonate Slow Rel 300 Mg Tab) 600 mg PO QAM VIVIAN Stop: 04/13/23 08:59 Last Admin: 03/28/23 08:33 Dose: 600 mg [place] Carbonate ([place] Carbonate 450 Mg Tabcr) 900 mg PO HS VIVIAN Stop: 04/12/23 21:59 Last Admin: 03/27/23 21:25 Dose: 900 mg Magnesium Hydroxide (Magnesium Hydroxide Susp 30 Ml Udc) 30 ml PO DAILY PRN PRN Reason: Constipation Stop: 04/12/23 15:03 Polyethylene Glycol (Polyethylene (Miralax) 17 Gm Pack) 17 gm PO DAILY PRN PRN Reason: constipation Stop: 04/12/23 16:17 Sodium Chloride (Sodium Chloride 0.65% Na Soln 45 Ml ([place])) 1 - 2 sprays NA PRN PRN PRN Reason: Nasal Dryness/Congestion Stop: 04/12/23 15:03 Mental Health & Subst Abuse Tx Psychiatrist Name of Psychiatrist: Kody Rogers Psychiatrist's Time of Appointment with Psychiatrist: Please follow-up as needed. Psychiatric Appointment Comment: [address] [place] [address] Therapist Name of Therapist: Cheko England - Marilou Therapist's Therapy Appointment Comment: [address], [facility] [address], [place] [address] Lens And Frames Prescription Clerk Name of Lens And Frames Prescription Clerk: [facility] - [place] Phone Number for Lens And Frames Prescription Clerk: [phone] Case Management Appointment Comment: Please resume your normal schedule. Post Discharge Appointments Primary Care Physician Name Of Family Doctor/PCP: Kody Dunn Primary Care Time of Appointment with PCP: Please follow-up as needed. Provider Appointment Comment: [address] [place] [address] Baking Factory Worker Name of Baking Factory Worker: [place] [facility] Peer Phone Number of Baking Factory Worker: [phone] Baking Factory Worker Appointment Comment: Please resume your normal schedule. Contact Information Discharge Discharge Address: [address] [place] [id number]
[2023-03-28] MEDS: cloZAPine 100 MG TAB PO SCH (21:58)
[2023-03-28] MEDS: cloZAPine 25 MG TAB PO SCH (21:59)
[2023-03-28] MEDS: LITHIUM CARBONATE 450 MG TABCR PO SCH (21:59)
[2023-03-29] MEDS: LITHIUM CARBONATE SLOW REL 300 MG TAB PO SCH (09:50)
--- NOTE | 2023-03-29 13:29 | Psychiatric Progress Note ---
Date of Service March 29, 2023 Impression / Recommendations Impression Reviewed care by Dr. Bloom in italics. 27 y/o M resident of personal nursing home with exacerbation Schizoaffective Disorder, Bipolar Type due to not taking medications [place] concerns for possible suicide attempt given recent SI with plans of walking into traffic. He is now on a 304 commitment and is unable to return to his personal nursing home. [facility] referral in progress, the [facility] is currently reviewing. No other safe disposition options at this time. [facility] due to hx psychosis with intermittent auditory hallucinations, guarded around peers, cannot tolerate a roommate 03/29/2023: unchanged Plan: continue current meds and tx plan pending community health diversion meeting. No updates from [facility]. (1) Schizoaffective disorder, bipolar type: Inventory Assets Strengths: voluntary, intelligent Needs: safety and stabilization, medication adjustment Suicide Risk Level Suicide Risk Level: Moderate (q15 min suicide checks) Risk Factors Assessment Male: Yes : Yes Do You Have Access To A Gun?: No Health Problems: No Mental Health Diagnoses: Yes Substance Use Disorders: No Previous Attempt: No Family History of Suicide: No Previous Psychiatric Hospitalization: Yes Hopelessness: No Protective Factors Assessment Employed: No Good Rapport with Provider: Yes Interval History Identifying Information NASEEM MCGEE is a 27-year-old M who currently lives in [facility], has a history of Schizoaffective Disorder, Bipolar Type, and was admitted on 03/13/23 14:14 on a 201 voluntary commitment for susanne. He was c ommitted under part 304(c) on 03/17/2023. Chief Complaint "I'm good." Review of Systems Sleep Information Total Hours of Sleep: 7.25 Meal Information Percent Meal Consumed - Breakfast: 100 Percent Meal Consumed - Lunch: 100 Percent Meal Consumed - Dinner: 100 Subjective Subjective Patient was seen & assessed and interval progress reviewed with treatment team. No acute issues. Physical Exam Psychiatric alert, cooperative, more spontaneous affect, attends select groups, doesn't interact much but pleasant, no SI/HI/bernard/del. Vital Signs (Past 24 Hours) Last Vital Signs Temp 36.8 C 03/29/23 06:48 Pulse 86 03/29/23 06:49 Resp 16 03/29/23 06:48 BP 101/62 03/29/23 06:49 Pulse Ox 97 06/12/23 06:00 O2 Del Method Room Air 03/20/23 06:00 Results & Data ([facility]) Current Inpatient Medications Current Inpatient Medications: Current Inpatient Medications Acetaminophen (Acetaminophen 325 Mg Tab) 650 mg PO Q4H PRN PRN Reason: Headache or Minor Fever Stop: 04/12/23 15:03 Al Hydrox/Mg Hydrox/Simethicone (Aluminum/Magnesium Susp 30 Ml Udc) 30 ml PO Q4H PRN PRN Reason: GI Upset Stop: 04/12/23 15:03 Aripiprazole (Aripiprazole 400 Mg Pre-Filled Syringe) 400 mg IM Q30D VIVIAN Stop: 05/09/23 07:59 Bismuth Subsalicylate (Bismuth Subsalicylate Liqd 236 Ml) 15 ml PO PRN PRN PRN Reason: Loose Stool Stop: 04/12/23 15:03 Clozapine (Clozapine 25 Mg Tab) 50 mg PO HS VIVIAN Stop: 04/21/23 21:59 Last Admin: 03/28/23 21:59 Dose: 50 mg Clozapine (Clozapine 100 Mg Tab) 300 mg PO HS VIVIAN Stop: 04/21/23 21:59 Last Admin: 03/28/23 21:58 Dose: 300 mg Docusate Calcium (Docusate Calcium 240 Mg Capsule) 240 mg PO DAILY PRN PRN Reason: constipation Stop: 04/12/23 16:39 Hydroxyzine HCl (Hydroxyzine Hcl 25 Mg Tab) 50 mg PO HSZ PRN PRN Reason: Insomnia Stop: 04/12/23 15:03 Hydroxyzine HCl (Hydroxyzine Hcl 25 Mg Tab) 25 mg PO Q4H PRN PRN Reason: Anxiety Stop: 04/12/23 15:03 [place] Carbonate ([place] Carbonate Slow Rel 300 Mg Tab) 600 mg PO QAM VIVIAN Stop: 04/13/23 08:59 Last Admin: 03/29/23 09:50 Dose: 600 mg [place] Carbonate ([place] Carbonate 450 Mg Tabcr) 900 mg PO HS VIVIAN Stop: 04/12/23 21:59 Last Admin: 03/28/23 21:59 Dose: 900 mg Magnesium Hydroxide (Magnesium Hydroxide Susp 30 Ml Udc) 30 ml PO DAILY PRN PRN Reason: Constipation Stop: 04/12/23 15:03 Polyethylene Glycol (Polyethylene (Miralax) 17 Gm Pack) 17 gm PO DAILY PRN PRN Reason: constipation Stop: 04/12/23 16:17 Sodium Chloride (Sodium Chloride 0.65% Na Soln 45 Ml ([place])) 1 - 2 sprays NA PRN PRN PRN Reason: Nasal Dryness/Congestion Stop: 04/12/23 15:03 Mental Health & Subst Abuse Tx Psychiatrist Name of Psychiatrist: Kody Rogers Psychiatrist's Time of Appointment with Psychiatrist: Please follow-up as needed. Psychiatric Appointment Comment: [address] [place] [address] Therapist Name of Therapist: Cheko England - Marilou Therapist's Therapy Appointment Comment: [address], [place] [address], [place] [address] School Custodian Name of School Custodian: [facility] [place] Phone Number for School Custodian: [phone] Case Management Appointment Comment: Please resume your normal schedule. Post Discharge Appointments Primary Care Physician Name Of Family Doctor/PCP: Kody Dunn Primary Care Time of Appointment with PCP: Please follow-up as needed. Provider Appointment Comment: [address] [place] [address] Diesel Maintenance Technician Name of Diesel Maintenance Technician: [place] [facility] Peer Phone Number of Diesel Maintenance Technician: [phone] Diesel Maintenance Technician Appointment Comment: Please resume your normal schedule. Contact Information Discharge Discharge Address: [address] [place] [phone]
[2023-03-29] MEDS: LITHIUM CARBONATE 450 MG TABCR PO SCH (21:22)
[2023-03-29] MEDS: cloZAPine 100 MG TAB PO SCH (21:23)
[2023-03-29] MEDS: cloZAPine 25 MG TAB PO SCH (21:24)
[2023-03-30] MEDS: LITHIUM CARBONATE SLOW REL 300 MG TAB PO SCH (09:56)
--- NOTE | 2023-03-30 12:13 | Psychiatric Progress Note ---
Date of Service March 30, 2023 Impression / Recommendations Impression Reviewed care by Dr. Bloom in italics. 27 y/o M resident of personal residential with exacerbation Schizoaffective Disorder, Bipolar Type due to not taking medications [place] concerns for possible suicide attempt given recent SI with plans of walking into traffic. He is now on a 304 commitment and is unable to return to his personal residential. [facility] referral in progress, the [facility] is currently reviewing. No other safe disposition options at this time. [facility] due to hx psychosis with intermittent auditory hallucinations, guarded around peers, cannot tolerate a roommate 03/30/2023: unchanged Plan: continue current meds and tx plan pending [facility] diversion meeting. No updates from [facility]. (1) Schizoaffective disorder, bipolar type: Inventory Assets Strengths: voluntary, intelligent Needs: safety and stabilization, medication adjustment Suicide Risk Level Suicide Risk Level: Moderate (q15 min suicide checks) Suicide Risk Level Comments: has chronic suicidal thoughts on which he's never acted Risk Factors Assessment Male: Yes : Yes Do You Have Access To A Gun?: No Health Problems: No Mental Health Diagnoses: Yes Substance Use Disorders: No Previous Attempt: No Family History of Suicide: No Previous Psychiatric Hospitalization: Yes Hopelessness: No Protective Factors Assessment Employed: No Good Rapport with Provider: Yes Interval History Identifying Information NASEEM MCGEE is a 27-year-old M who currently lives in [facility], has a history of Schizoaffective Disorder, Bipolar Type, and was admitted on 03/13/23 14:14 on a 201 voluntary commitment for susanne. He was committed under part 304(c) on 03/17/2023. Chief Complaint not sure he's willing to add structured day programming as an outpatient Review of Systems Sleep Information Total Hours of Sleep: 7.5 Meal Information Percent Meal Consumed - Breakfast: 100 Percent Meal Consumed - Lunch: 100 Percent Meal Consumed - Dinner: 100 Subjective Subjective Patient was seen & assessed and interval progress reviewed with nursing and social work. Patient has rather superficial interactions in select groups. Physical Exam Psychiatric alert, cooperative, mood "fine", affect blunted, thoughts concrete, denies SI/HI/bernard. No abnormal motor movements. Vital Signs (Past 24 Hours) Last Vital Signs Temp 36.9 C 03/30/23 06:41 Pulse 80 03/30/23 06:41 Resp 16 03/30/23 06:41 BP 112/69 03/30/23 06:41 Pulse Ox 97 03/20/23 06:00 O2 Del Method Room Air 03/20/23 06:00 Results & Data ([facility]) Current Inpatient Medications Current Inpatient Medications: Current Inpatient Medications Acetaminophen (Acetaminophen 325 Mg Tab) 650 mg PO Q4H PRN PRN Reason: Headache or Minor Fever Stop: 04/12/23 15:03 Al Hydrox/Mg Hydrox/Simethicone (Aluminum/Magnesium Susp 30 Ml Udc) 30 ml PO Q4H PRN PRN Reason: GI Upset Stop: 04/12/23 15:03 Aripiprazole (Aripiprazole 400 Mg Pre-Filled Syringe) 400 mg IM Q30D VIVIAN Stop: 05/09/23 07:59 Bismuth Subsalicylate (Bismuth Subsalicylate Liqd 236 Ml) 15 ml PO PRN PRN PRN Reason: Loose Stool Stop: 04/12/23 15:03 Clozapine (Clozapine 25 Mg Tab) 50 mg PO HS VIVIAN Stop: 04/21/23 21:59 Last Admin: 03/29/23 21:24 Dose: 50 mg Clozapine (Clozapine 100 Mg Tab) 300 mg PO HS VIVIAN Stop: 04/21/23 21:59 Last Admin: 03/29/23 21:23 Dose: 300 mg Docusate Calcium (Docusate Calcium 240 Mg Capsule) 240 mg PO DAILY PRN PRN Reason: constipation Stop: 04/12/23 16:39 Hydroxyzine HCl (Hydroxyzine Hcl 25 Mg Tab) 50 mg PO HSZ PRN PRN Reason: Insomnia Stop: 04/12/23 15:03 Hydroxyzine HCl (Hydroxyzine Hcl 25 Mg Tab) 25 mg PO Q4H PRN PRN Reason: Anxiety Stop: 04/12/23 15:03 [place] Carbonate ([place] Carbonate Slow Rel 300 Mg Tab) 600 mg PO QAM VIVIAN Stop: 04/13/23 08:59 Last Admin: 03/30/23 09:56 Dose: 600 mg [place] Carbonate ([place] Carbonate 450 Mg Tabcr) 900 mg PO HS VIVIAN Stop: 04/12/23 21:59 Last Admin: 03/29/23 21:22 Dose: 900 mg Magnesium Hydroxide (Magnesium Hydroxide Susp 30 Ml Udc) 30 ml PO DAILY PRN PRN Reason: Constipation Stop: 04/12/23 15:03 Polyethylene Glycol (Polyethylene (Miralax) 17 Gm Pack) 17 gm PO DAILY PRN PRN Reason: constipation Stop: 04/12/23 16:17 Sodium Chloride (Sodium Chloride 0.65% Na Soln 45 Ml ([place])) 1 - 2 sprays NA PRN PRN PRN Reason: Nasal Dryness/Congestion Stop: 04/12/23 15:03 Mental Health & Subst Abuse Tx Psychiatrist Name of Psychiatrist: Kody Rogers Psychiatrist's Time of Appointment with Psychiatrist: Please follow-up as needed. Psychiatric Appointment Comment: [address] [place] [address] Therapist Name of Therapist: Cheko England - Marilou Therapist's Therapy Appointment Comment: [address] [facility] [address], [facility] [address], [place] [address] Pharmacist Helper Name of Pharmacist Helper: [facility] [place] Phone Number for Pharmacist Helper: [phone] Case Management Appointment Comment: Please resume your normal schedule. Post Discharge Appointments Primary Care Physician Name Of Family Doctor/PCP: Kody Dunn Primary Care Time of Appointment with PCP: Please follow-up as needed. Provider Appointment Comment: [address] [place] [address] Ripshear Operator Name of Ripshear Operator: [place] [facility] Peer Phone Number of Ripshear Operator: [phone] Ripshear Operator Appointment Comment: Please resume your normal schedule. Contact Information Discharge Discharge Address: [address] [place] [id number]
[2023-03-30] MEDS: LITHIUM CARBONATE 450 MG TABCR PO SCH (20:42)
[2023-03-30] MEDS: cloZAPine 100 MG TAB PO SCH (20:43)
[2023-03-30] MEDS: cloZAPine 25 MG TAB PO SCH (20:44)
[2023-03-31] MEDS: LITHIUM CARBONATE SLOW REL 300 MG TAB PO SCH (08:55)
--- NOTE | 2023-03-31 14:17 | Psychiatric Progress Note ---
Date of Service March 31, 2023 Impression / Recommendations Impression Reviewed care by Dr. Bloom in italics. 27 y/o M resident of personal skilled nursing with exacerbation Schizoaffective Disorder, Bipolar Type due to not taking medications [place] concerns for possible suicide attempt given recent SI with plans of walking into traffic. He is now on a 304 commitment and is unable to return to his personal skilled nursing. [facility] Hospital referral in progress, the [facility] is currently reviewing. No other safe disposition options at this time. MNPR due to hx psychosis with intermittent auditory hallucinations, guarded around peers, cannot tolerate a roommate 03/31/2023: improving with structure of unit, unable to be discharged to the community (1) Schizoaffective disorder, bipolar type: Plan 03/31/2023: diversion meeting completed. next lab draw 04/03/23. 03/25/2023: tolerating consolidation of clozaril to hs. 03/24/2023: Continue with current medications and tx plan. 03/23/2023: Continue with current medications and tx plan. 03/22/2023: Clozapine 350mg HS, continue other current medications 03/21/2023: Consolidate clozapine to 350mg HS starting tomorrow. 03/20/2023: Continue current medications and tx plan. 03/19/2023: Continue current medications and tx plan. CBC with ANC tomorrow. 03/18/2023: Continue current medications and tx plan. Will plan to consider augmentation with haldol once abilify JOSHI effects have waned over the next few weeks. 03/17/2023: * continue LiCO3 600 mg QAM & 900 mg QHS, consider consolidating to 1500 mg QHS * continue clozapine 100 mg QAM & 250 mg QHS, consider consolidating to 350 mg QHS * discontinue aripiprazole lauroxil 400 mg IM monthly, last given 10 March 2023 (so will remain at significant level for several more weeks) * anticipate adding haloperidol, but at this point that would constitute 3 concurrent antipsychotics 03/16/2023: * continue LiCO3 600 mg QAM & 900 mg QHS, consider consolidating to 1500 mg QHS * recheck lithium level tomorrow * continue clozapine 100 mg QAM & 250 mg QHS, consider consolidating to 350 mg QHS * discontinue aripiprazole lauroxil 400 mg IM monthly, last given 10 March 2023 * anticipate adding haloperidol, but at this point that would constitute 3 concurrent antipsychotics * completed [place] form MH 785 for part 304(c) "involuntary" treatment at the [facility] 03/15/2023: * continue LiCO3 600 mg QAM & 900 mg QHS, consider consolidating to 1500 mg QHS * recheck lithium level in 2 days * continue clozapine 100 mg QAM & 250 mg QHS, consider consolidating to 350 mg QHS * discontinue aripiprazole lauroxil 400 mg IM monthly, last given 10 March 2023 * discontinue aripiprazole 5 mg daily 03/14/2023: The patient was admitted to the [facility] ([facility] mental health unit) on q15 min checks (behavioral with suicide precautions) for safety. The patient will participate in group, recreational, and milieu therapies and will be offered additional individual and family sessions as clinically appropriate. Pt was recently started on aripiprazole lauroxil. Since his record indicates a failed trial of oral aripiprazole in the past, I will be circumspect about discontinuing clozapine at this time. * continue LiCO3 600 mg QAM & 900 mg QHS * continue clozapine 100 mg QAM & 250 mg QHS for the time being * continue aripiprazole lauroxil 400 mg IM monthly, next due 09 April 2023 * continue aripiprazole 5 mg daily Inventory Assets Strengths: voluntary, intelligent Needs: safety and stabilization, medication adjustment Suicide Risk Level Suicide Risk Level: Moderate (q15 min suicide checks) Suicide Risk Level Comments: has chronic suicidal thoughts on which he's never acted Risk Factors Assessment Male: Yes : Yes Do You Have Access To A Gun?: No Health Problems: No Mental Health Diagnoses: Yes Substance Use Disorders: No Previous Attempt: No Family History of Suicide: No Previous Psychiatric Hospitalization: Yes Hopelessness: No Protective Factors Assessment Employed: No Good Rapport with Provider: Yes Interval History Identifying Information NASEEM MCGEE is a 27-year-old M who currently lives in [facility], has a history of Schizoaffective Disorder, Bipolar Type, and was admitted on 03/13/23 14:14 on a 201 voluntary commitment for susanne. He was committed under part 304(c) on 03/17/2023. Chief Complaint met with patient, participated in diversion meeting Review of Systems Sleep Information Total Hours of Sleep: 6.5 Meal Information Percent Meal Consumed - Breakfast: 50 Percent Meal Consumed - Lunch: 50 Percent Meal Consumed - Dinner: 100 Subjective Subjective Patient was seen & assessed and interval progress reviewed with treatment team. Attending rec therapy groups, improved interactions with peers. Discussed briefly his interest in robotics. 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 progress and possible county options Physical Exam Psychiatric Orientation: alert Apperance: appropriately dressed and appropriately groomed Motor Behavior: no abnormal motor movements Affect: + blunted affect Mood: no depressed mood Thought Process: + concrete thought process Thought Content: reality based without delusions Suicidal Thoughts: denies suicidal thoughts Homicidal Thoughts: denies homicidal thoughts Hallucinations: no auditory hallucinations and no visual hallucinations Cognition: attention grossly intact and language grossly intact Estimated Intelligence: consistent with education level Insight: + limited insight Judgment: + limited judgement Vital Signs (Past 24 Hours) Last Vital Signs Temp 36.6 C 03/31/23 06:51 Pulse 81 03/31/23 06:52 Resp 16 03/31/23 06:51 BP 108/70 03/31/23 06:52 Pulse Ox 97 03/20/23 06:00 O2 Del Method Room Air 03/20/23 06:00 Results & Data ([facility]) Current Inpatient Medications Current Inpatient Medications: Current Inpatient Medications Acetaminophen (Acetaminophen 325 Mg Tab) 650 mg PO Q4H PRN PRN Reason: Headache or Minor Fever Stop: 04/12/23 15:03 Al Hydrox/Mg Hydrox/Simethicone (Aluminum/Magnesium Susp 30 Ml Udc) 30 ml PO Q4H PRN PRN Reason: GI Upset Stop: 04/12/23 15:03 Aripiprazole (Aripiprazole 400 Mg Pre-Filled Syringe) 400 mg IM Q30D VIVIAN Stop: 05/09/23 07:59 Bismuth Subsalicylate (Bismuth Subsalicylate Liqd 236 Ml) 15 ml PO PRN PRN PRN Reason: Loose Stool Stop: 04/12/23 15:03 Clozapine (Clozapine 25 Mg Tab) 50 mg PO HS VIVIAN Stop: 04/21/23 21:59 Last Admin: 03/30/23 20:44 Dose: 50 mg Clozapine (Clozapine 100 Mg Tab) 300 mg PO HS VIVIAN Stop: 04/21/23 21:59 Last Admin: 03/30/23 20:43 Dose: 300 mg Docusate Calcium (Docusate Calcium 240 Mg Capsule) 240 mg PO DAILY PRN PRN Reason: constipation Stop: 04/12/23 16:39 Hydroxyzine HCl (Hydroxyzine Hcl 25 Mg Tab) 50 mg PO HSZ PRN PRN Reason: Insomnia Stop: 04/12/23 15:03 Hydroxyzine HCl (Hydroxyzine Hcl 25 Mg Tab) 25 mg PO Q4H PRN PRN Reason: Anxiety Stop: 04/12/23 15:03 [place] Carbonate ([place] Carbonate Slow Rel 300 Mg Tab) 600 mg PO QAM VIVIAN Stop: 04/13/23 08:59 Last Admin: 03/31/23 08:55 Dose: 600 mg [place] Carbonate ([place] Carbonate 450 Mg Tabcr) 900 mg PO HS VIVIAN Stop: 04/12/23 21:59 Last Admin: 03/30/23 20:42 Dose: 900 mg Magnesium Hydroxide (Magnesium Hydroxide Susp 30 Ml Udc) 30 ml PO DAILY PRN PRN Reason: Constipation Stop: 04/12/23 15:03 Polyethylene Glycol (Polyethylene (Miralax) 17 Gm Pack) 17 gm PO DAILY PRN PRN Reason: constipation Stop: 04/12/23 16:17 Sodium Chloride (Sodium Chloride 0.65% Na Soln 45 Ml ([place])) 1 - 2 sprays NA PRN PRN PRN Reason: Nasal Dryness/Congestion Stop: 04/12/23 15:03 Mental Health & Subst Abuse Tx Psychiatrist Name of Psychiatrist: Kody Rogers Psychiatrist's Time of Appointment with Psychiatrist: Please follow-up as needed. Psychiatric Appointment Comment: [address] [place] [address] Therapist Name of Therapist: [facility] Therapist's Therapy Appointment Comment: [address], [address], [place] [address] Building Construction Superintendent Name of Building Construction Superintendent: [employer] Lisseth Rose Phone Number for Building Construction Superintendent: [phone] Case Management Appointment Comment: Please resume your normal schedule. Post Discharge Appointments Primary Care Physician Name Of Family Doctor/PCP: Kody Dunn [facility] Time of Appointment with PCP: Please follow-up as needed. Provider Appointment Comment: [address] [place] [address] Vibration Engineer Name of Vibration Engineer: [facility] - Crisis Peer Phone Number of Vibration Engineer: [phone] Vibration Engineer Appointment Comment: Please resume your normal schedule. Contact Information Discharge Discharge Address: [address] [place] [id number]
[2023-03-31] MEDS: cloZAPine 100 MG TAB PO SCH (21:22)
[2023-03-31] MEDS: cloZAPine 25 MG TAB PO SCH (21:22)
[2023-03-31] MEDS: LITHIUM CARBONATE 450 MG TABCR PO SCH (21:24)
[2023-04-01] MEDS: LITHIUM CARBONATE SLOW REL 300 MG TAB PO SCH (08:58)
--- NOTE | 2023-04-01 19:18 | Psychiatric Progress Note ---
Date of Service April 01, 2023 Impression / Recommendations Impression 27 y/o M resident of personal prison with exacerbation Schizoaffective Disorder, Bipolar Type due to not taking medications [place] concerns for possible suicide attempt given recent SI with plans of walking into traffic. He is now on a 304 commitment and is unable to return to his personal prison. [facility] Hospital referral in progress, the [facility] is currently reviewing. No other safe disposition options at this time. MNPR due to hx psychosis with intermittent auditory hallucinations, guarded around peers, cannot tolerate a roommate 04/01/2023: reviewed interim progress per Dr. Elliott's notes, mood is stable but continues to respond to internal stimuli, tolerating his medications well, remains unable to be safely discharged to the community (1) Schizoaffective disorder, bipolar type: Plan 04/01/2023: Continue with current medications and tx plan. 03/31/2023: diversion meeting completed. next lab draw 04/03/23. 03/25/2023: tolerating consolidation of clozaril to hs. 03/24/2023: Continue with current medications and tx plan. 03/23/2023: Continue with current medications and tx plan. 03/22/2023: Clozapine 350mg HS, continue other current medications 03/21/2023: Consolidate clozapine to 350mg HS starting tomorrow. 03/20/2023: Continue current medications and tx plan. 03/19/2023: Continue current medications and tx plan. CBC with ANC tomorrow. 03/18/2023: Continue current medications and tx plan. Will plan to consider augmentation with haldol once abilify JOSHI effects have waned over the next few weeks. 03/17/2023: * continue LiCO3 600 mg QAM & 900 mg QHS, consider consolidating to 1500 mg QHS * continue clozapine 100 mg QAM & 250 mg QHS, consider consolidating to 350 mg QHS * discontinue aripiprazole lauroxil 400 mg IM monthly, last given 10 March 2023 (so will remain at significant level for several more weeks) * anticipate adding haloperidol, but at this point that would constitute 3 concurrent antipsychotics 03/16/2023: * continue LiCO3 600 mg QAM & 900 mg QHS, consider consolidating to 1500 mg QHS * recheck lithium level tomorrow * continue clozapine 100 mg QAM & 250 mg QHS, consider consolidating to 350 mg QHS * discontinue aripiprazole lauroxil 400 mg IM monthly, last given 10 March 2023 * anticipate adding haloperidol, but at this point that would constitute 3 concurrent antipsychotics * completed [place] form 785 for part 304(c) "involuntary" treatment at the [facility] 03/15/2023: * continue LiCO3 600 mg QAM & 900 mg QHS, consider consolidating to 1500 mg QHS * recheck lithium level in 2 days * continue clozapine 100 mg QAM & 250 mg QHS, consider consolidating to 350 mg QHS * discontinue aripiprazole lauroxil 400 mg IM monthly, last given 10 March 2023 * discontinue aripiprazole 5 mg daily 03/14/2023: The patient was admitted to the [facility] ([facility] mental health unit) on q15 min checks (behavioral with suicide precautions) for safety. The patient will participate in group, recreational, and milieu therapies and will be offered additional individual and family sessions as clinically appropriate. Pt was recently started on aripiprazole lauroxil. Since his record indicates a failed trial of oral aripiprazole in the past, I will be circumspect about discontinuing clozapine at this time. * continue LiCO3 600 mg QAM & 900 mg QHS * continue clozapine 100 mg QAM & 250 mg QHS for the time being * continue aripiprazole lauroxil 400 mg IM monthly, next due 09 April 2023 * continue aripiprazole 5 mg daily Inventory Assets Strengths: voluntary, intelligent Needs: safety and stabilization, medication adjustment Suicide Risk Level Suicide Risk Level: Moderate (q15 min suicide checks) (SI with depression prior to admission but has been consistently denying SI since admission, responds to internal stimuli but engages easily, feels safe here and agrees to let nursing know if he requires additional support or feels unable to remain safe) Risk Factors Assessment Male: Yes : Yes Do You Have Access To A Gun?: No Health Problems: No Mental Health Diagnoses: Yes Substance Use Disorders: No Previous Attempt: No Family History of Suicide: No Previous Psychiatric Hospitalization: Yes Hopelessness: No Protective Factors Assessment Employed: No Good Rapport with Provider: Yes Interval History Identifying Information NASEEM MCGEE is a 27-year-old M who currently lives in [facility], has a history of Schizoaffective Disorder, Bipolar Type, and was admitted on 03/13/23 14:14 on a 201 voluntary commitment for susanne. He was committed under part 304(c) on 03/17/2023. Chief Complaint "I'm pretty good". Review of Systems Sleep Information Total Hours of Sleep: 7 Meal Information Percent Meal Consumed - Breakfast: 50 Percent Meal Consumed - Lunch: 100 Percent Meal Consumed - Dinner: 90 Subjective Subjective Patient was seen & assessed and interval progress reviewed with treatment team nursing and social work. Pacing most of the days in the halls responding loudly at times to internal stimuli. Reports mood is "pretty good". Denies any dizziness, likes consolidated clozapine. Denies SI. [place] responding loudly to internal stimuli while showering, later observed actively responding while walking in the hallway. Physical Exam Psychiatric Orientation: alert and oriented x 3 Apperance: appropriately dressed and + disheveled Motor Behavior: no abnormal motor movements Affect: + blunted affect Mood: no depressed mood Thought Process: + concrete thought process Thought Content: reality based without delusions Suicidal Thoughts: denies suicidal thoughts Homicidal Thoughts: denies homicidal thoughts Hallucinations: + auditory hallucinations (responds throughout the day); no visual hallucinations Cognition: attention grossly intact and language grossly intact Estimated Intelligence: consistent with education level Insight: + limited insight Judgment: + limited judgement Vital Signs (Past 24 Hours) Last Vital Signs Temp 36.6 C 04/01/23 06:00 Pulse 70 04/01/23 06:00 Resp 18 04/01/23 06:00 BP 107/71 04/01/23 06:50 Pulse Ox 97 04/01/23 06:00 O2 Del Method Room Air 04/01/23 06:00 Results & Data ([facility]) Current Inpatient Medications Current Inpatient Medications: Current Inpatient Medications Acetaminophen (Acetaminophen 325 Mg Tab) 650 mg PO Q4H PRN PRN Reason: Headache or Minor Fever Stop: 04/12/23 15:03 Al Hydrox/Mg Hydrox/Simethicone (Aluminum/Magnesium Susp 30 Ml Udc) 30 ml PO Q4H PRN PRN Reason: GI Upset Stop: 04/12/23 15:03 Aripiprazole (Aripiprazole 400 Mg Pre-Filled Syringe) 400 mg IM Q30D VIVIAN Stop: 05/09/23 07:59 Bismuth Subsalicylate (Bismuth Subsalicylate Liqd 236 Ml) 15 ml PO PRN PRN PRN Reason: Loose Stool Stop: 04/12/23 15:03 Clozapine (Clozapine 25 Mg Tab) 50 mg PO HS VIVIAN Stop: 04/21/23 21:59 Last Admin: 03/31/23 21:22 Dose: 50 mg Clozapine (Clozapine 100 Mg Tab) 300 mg PO HS VIVIAN Stop: 04/21/23 21:59 Last Admin: 03/31/23 21:22 Dose: 300 mg Docusate Calcium (Docusate Calcium 240 Mg Capsule) 240 mg PO DAILY PRN PRN Reason: constipation Stop: 04/12/23 16:39 Hydroxyzine HCl (Hydroxyzine Hcl 25 Mg Tab) 50 mg PO HSZ PRN PRN Reason: Insomnia Stop: 04/12/23 15:03 Hydroxyzine HCl (Hydroxyzine Hcl 25 Mg Tab) 25 mg PO Q4H PRN PRN Reason: Anxiety Stop: 04/12/23 15:03 [place] Carbonate ([place] Carbonate Slow Rel 300 Mg Tab) 600 mg PO QAM VIVIAN Stop: 04/13/23 08:59 Last Admin: 04/01/23 08:58 Dose: 600 mg [place] Carbonate ([place] Carbonate 450 Mg Tabcr) 900 mg PO HS VIVIAN Stop: 04/12/23 21:59 Last Admin: 03/31/23 21:24 Dose: 900 mg Magnesium Hydroxide (Magnesium Hydroxide Susp 30 Ml Udc) 30 ml PO DAILY PRN PRN Reason: Constipation Stop: 04/12/23 15:03 Polyethylene Glycol (Polyethylene (Miralax) 17 Gm Pack) 17 gm PO DAILY PRN PRN Reason: constipation Stop: 04/12/23 16:17 Sodium Chloride (Sodium Chloride 0.65% Na Soln 45 Ml ([place])) 1 - 2 sprays NA PRN PRN PRN Reason: Nasal Dryness/Congestion Stop: 04/12/23 15:03 Mental Health & Subst Abuse Tx Psychiatrist Name of Psychiatrist: Kody Rogers Psychiatrist's Time of Appointment with Psychiatrist: Please follow-up as needed. Psychiatric Appointment Comment: [address] [place] [address] Therapist Name of Therapist: [facility] Therapist's Therapy Appointment Comment: [address], [address], [place] [address] Log Data Technician Name of Log Data Technician: [facility] [place] Phone Number for Log Data Technician: [phone] Case Management Appointment Comment: Please resume your normal schedule. Post Discharge Appointments Primary Care Physician Name Of Family Doctor/PCP: Kody Dunn [facility] Time of Appointment with PCP: Please follow-up as needed. Provider Appointment Comment: [address] [place] [address] Shafting Worker Name of Shafting Worker: [facility] [facility] - Crisis Peer Phone Number of Shafting Worker: [phone] Shafting Worker Appointment Comment: Please resume your normal schedule. Contact Information Discharge Discharge Address: [address] [place] [id number]
[2023-04-01] MEDS: cloZAPine 25 MG TAB PO SCH (20:52)
[2023-04-01] MEDS: cloZAPine 100 MG TAB PO SCH (20:52)
[2023-04-01] MEDS: LITHIUM CARBONATE 450 MG TABCR PO SCH (20:52)
[2023-04-02] MEDS: LITHIUM CARBONATE SLOW REL 300 MG TAB PO SCH (08:35)
--- NOTE | 2023-04-02 09:17 | Psychiatric Progress Note ---
Date of Service April 02, 2023 Impression / Recommendations Impression 27 y/o M resident of personal halfway with exacerbation Schizoaffective Disorder, Bipolar Type due to not taking medications [place] concerns for possible suicide attempt given recent SI with plans of walking into traffic. He is now on a 304 commitment and is unable to return to his personal halfway. [facility] referral in progress, the [facility] is currently reviewing. No other safe disposition options at this time. MNPR due to hx psychosis with intermittent auditory hallucinations, guarded around peers, cannot tolerate a roommate 04/02/2023: mood is stable but continues to respond to internal stimuli and with limited peer interactions, tolerating his medications well, remains unable to be safely discharged to the community (1) Schizoaffective disorder, bipolar type: Plan 04/02/2023: Continue with current medications and tx plan. 04/01/2023: Continue with current medications and tx plan. 03/31/2023: diversion meeting completed. next lab draw 04/03/23. 03/25/2023: tolerating consolidation of clozaril to hs. 03/24/2023: Continue with current medications and tx plan. 03/23/2023: Continue with current medications and tx plan. 03/22/2023: Clozapine 350mg HS, continue other current medications 03/21/2023: Consolidate clozapine to 350mg HS starting tomorrow. 03/20/2023: Continue current medications and tx plan. 03/19/2023: Continue current medications and tx plan. CBC with ANC tomorrow. 03/18/2023: Continue current medications and tx plan. Will plan to consider augmentation with haldol once abilify JOSHI effects have waned over the next few weeks. 03/17/2023: * continue LiCO3 600 mg QAM & 900 mg QHS, consider consolidating to 1500 mg QHS * continue clozapine 100 mg QAM & 250 mg QHS, consider consolidating to 350 mg QHS * discontinue aripiprazole lauroxil 400 mg IM monthly, last given 10 March 2023 (so will remain at significant level for several more weeks) * anticipate adding haloperidol, but at this point that would constitute 3 concurrent antipsychotics 03/16/2023: * continue LiCO3 600 mg QAM & 900 mg QHS, consider consolidating to 1500 mg QHS * recheck lithium level tomorrow * continue clozapine 100 mg QAM & 250 mg QHS, consider consolidating to 350 mg QHS * discontinue aripiprazole lauroxil 400 mg IM monthly, last given 10 March 2023 * anticipate adding haloperidol, but at this point that would constitute 3 concurrent antipsychotics * [place] 785 [place] 304(c) "involuntary" treatment at the [facility] 03/15/2023: * continue LiCO3 600 mg QAM & 900 mg QHS, consider consolidating to 1500 mg QHS * recheck lithium level in 2 days * continue clozapine 100 mg QAM & 250 mg QHS, consider consolidating to 350 mg QHS * discontinue aripiprazole lauroxil 400 mg IM monthly, last given 10 March 2023 * discontinue aripiprazole 5 mg daily 03/14/2023: The patient was admitted to the [facility] ([facility]) on q15 min checks (behavioral with suicide precautions) for safety. The patient will participate in group, recreational, and milieu therapies and will be offered additional individual and family sessions as clinically appropriate. Pt was recently started on aripiprazole lauroxil. Since his record indicates a failed trial of oral aripiprazole in the past, I will be circumspect about discontinuing clozapine at this time. * continue LiCO3 600 mg QAM & 900 mg QHS * continue clozapine 100 mg QAM & 250 mg QHS for the time being * continue aripiprazole lauroxil 400 mg IM monthly, next due 09 April 2023 * continue aripiprazole 5 mg daily Inventory Assets Strengths: voluntary, intelligent Needs: safety and stabilization, medication adjustment Suicide Risk Level Suicide Risk Level: Moderate (q15 min suicide checks) (SI with depression prior to admission but has been consistently denying SI since admission, responds to internal stimuli but engages easily, feels safe here and agrees to let nursing know if he requires additional support or feels unable to remain safe) Risk Factors Assessment Male: Yes : Yes Do You Have Access To A Gun?: No Health Problems: No Mental Health Diagnoses: Yes Substance Use Disorders: No Previous Attempt: No Family History of Suicide: No Previous Psychiatric Hospitalization: Yes Hopelessness: No Protective Factors Assessment Employed: No Good Rapport with Provider: Yes Interval History Identifying Information NASEEM MCGEE is a 27-year-old M who currently lives in [facility], has a history of Schizoaffective Disorder, Bipolar Type, and was admitted on 03/13/23 14:14 on a 201 voluntary commitment for susanne. He was committed under part 304(c) on 03/17/2023. Chief Complaint "I'm good". Review of Systems Sleep Information Total Hours of Sleep: 6.5 Meal Information Percent Meal Consumed - Breakfast: 50 Percent Meal Consumed - Lunch: 100 Percent Meal Consumed - Dinner: 90 Subjective Subjective Patient was seen & assessed and interval progress reviewed with treatment team nursing and social work. Very internally preoccupied. only could tolerate about 3 minutes of a movie with peers. Can only tolerate community meeting. Denies any medication side effects. Reports no issues with constipation nor other concerns. Physical Exam Psychiatric Orientation: alert and oriented x 3 Apperance: appropriately dressed and + disheveled Motor Behavior: no abnormal motor movements Affect: + blunted affect Mood: no depressed mood Thought Process: + concrete thought process Thought Content: reality based without delusions Suicidal Thoughts: denies suicidal thoughts Homicidal Thoughts: denies homicidal thoughts Hallucinations: + auditory hallucinations (responds throughout the day); no visual hallucinations Cognition: attention grossly intact and language grossly intact Estimated Intelligence: consistent with education level Insight: + limited insight Judgment: + limited judgement Vital Signs (Past 24 Hours) Last Vital Signs Temp 37.2 C 04/02/23 06:00 Pulse 84 04/02/23 06:57 Resp 18 04/02/23 06:00 BP 108/74 04/02/23 06:57 Pulse Ox 97 04/01/23 06:00 O2 Del Method Room Air 04/01/23 06:00 Results & Data ([facility]) Current Inpatient Medications Current Inpatient Medications: Current Inpatient Medications Acetaminophen (Acetaminophen 325 Mg Tab) 650 mg PO Q4H PRN PRN Reason: Headache or Minor Fever Stop: 04/12/23 15:03 Al Hydrox/Mg Hydrox/Simethicone (Aluminum/Magnesium Susp 30 Ml Udc) 30 ml PO Q4H PRN PRN Reason: GI Upset Stop: 04/12/23 15:03 Aripiprazole (Aripiprazole 400 Mg Pre-Filled Syringe) 400 mg IM Q30D VIVIAN Stop: 05/09/23 07:59 Bismuth Subsalicylate (Bismuth Subsalicylate Liqd 236 Ml) 15 ml PO PRN PRN PRN Reason: Loose Stool Stop: 04/12/23 15:03 Clozapine (Clozapine 25 Mg Tab) 50 mg PO HS VIVIAN Stop: 04/21/23 21:59 Last Admin: 04/01/23 20:52 Dose: 50 mg Clozapine (Clozapine 100 Mg Tab) 300 mg PO HS VIVIAN Stop: 04/21/23 21:59 Last Admin: 04/01/23 20:52 Dose: 300 mg Docusate Calcium (Docusate Calcium 240 Mg Capsule) 240 mg PO DAILY PRN PRN Reason: constipation Stop: 04/12/23 16:39 Hydroxyzine HCl (Hydroxyzine Hcl 25 Mg Tab) 50 mg PO HSZ PRN PRN Reason: Insomnia Stop: 04/12/23 15:03 Hydroxyzine HCl (Hydroxyzine Hcl 25 Mg Tab) 25 mg PO Q4H PRN PRN Reason: Anxiety Stop: 04/12/23 15:03 [place] Carbonate ([place] Carbonate Slow Rel 300 Mg Tab) 600 mg PO QAM VIVIAN Stop: 04/13/23 08:59 Last Admin: 04/02/23 08:35 Dose: 600 mg [place] Carbonate ([place] Carbonate 450 Mg Tabcr) 900 mg PO HS VIVIAN Stop: 04/12/23 21:59 Last Admin: 04/01/23 20:52 Dose: 900 mg Magnesium Hydroxide (Magnesium Hydroxide Susp 30 Ml Udc) 30 ml PO DAILY PRN PRN Reason: Constipation Stop: 04/12/23 15:03 Polyethylene Glycol (Polyethylene (Miralax) 17 Gm Pack) 17 gm PO DAILY PRN PRN Reason: constipation Stop: 04/12/23 16:17 Sodium Chloride (Sodium Chloride 0.65% Na Soln 45 Ml ([place])) 1 - 2 sprays NA PRN PRN PRN Reason: Nasal Dryness/Congestion Stop: 04/12/23 15:03 Mental Health & Subst Abuse Tx Psychiatrist Name of Psychiatrist: Kody Rogers Psychiatrist's Time of Appointment with Psychiatrist: Please follow-up as needed. Psychiatric Appointment Comment: [address] [place] [address] Therapist Name of Therapist: Cheko Zamarripa Therapist's Therapy Appointment Comment: [address], [address], [place] [address] Service Center Technician Name of Service Center Technician: [facility] Phone Number for Service Center Technician: [phone] Case Management Appointment Comment: Please resume your normal schedule. Post Discharge Appointments Primary Care Physician Name Of Family Doctor/PCP: Kody Dunn Primary Care Time of Appointment with PCP: Please follow-up as needed. Provider Appointment Comment: [address] [place] [address] Engineering Job Titles Name of Engineering Job Titles: [place] [facility] - [facility] Peer Phone Number of Engineering Job Titles: [phone] Engineering Job Titles Appointment Comment: Please resume your normal schedule. Contact Information Discharge Discharge Address: [address] [place] [id number]
[2023-04-02] MEDS: cloZAPine 100 MG TAB PO SCH (21:12)
[2023-04-02] MEDS: cloZAPine 25 MG TAB PO SCH (21:12)
[2023-04-02] MEDS: LITHIUM CARBONATE 450 MG TABCR PO SCH (21:13)
[2023-04-03 07:22] LABS: Basophils % (auto) 0.8 %; Eosinophils # (auto) 0.45 K/uL (0-0.50); Eosinophils % (auto) 3.7 %; Hematocrit (blood only) 49.2 % (42.0-52.0); Hemoglobin 16.2 g/dl (14.0-18.0); Immature Granulocytes # (auto) 0.08 K/uL (0.01-0.20); Immature Granulocytes % (auto) 0.7 %; Lymphocytes # (auto) 3.23 K/uL (1.2-3.4); Lymphocytes % (auto) 26.7 %; Mean Corpuscular Hemoglobin 27.3 pg (25.0-34.0); Mean Corpuscular Hgb Conc 32.9 g/dL (32.0-36.0); Mean Corpuscular Volume 82.8 fL (80.0-100.0); Mean Platelet Volume 10.7 fL (9.4-12.4); Monocytes # (auto) 1.08 K/uL (0.11-0.59); Monocytes % (auto) 8.9 %; Neutrophils # (auto) 7.16 K/uL (1.40-6.50); Neutrophils % (auto) 59.2 %; Platelet Count 350 K/uL (130-400); RDW Coefficient of Variation 13.1 % (11.5-14.5); Red Blood Count 5.94 M/uL (4.70-6.10)
[2023-04-03] MEDS: LITHIUM CARBONATE SLOW REL 300 MG TAB PO SCH (08:34)
--- NOTE | 2023-04-03 13:40 | Psychiatric Progress Note ---
Date of Service April 03, 2023 Impression / Recommendations Impression 27 y/o M resident of personal retirement with exacerbation Schizoaffective Disorder, Bipolar Type due to not taking medications [place] concerns for possible suicide attempt given recent SI with plans of walking into traffic. He is now on a 304 commitment and is unable to return to his personal retirement. [facility] referral in progress, the [facility] is currently reviewing. No other safe disposition options at this time. MNPR due to hx psychosis with intermittent auditory hallucinations, guarded around peers, cannot tolerate a roommate 04/03/2023: continues to respond to internal stimuli but no disorganized behaviors, tolerated meeting with his CM, reviewed ANC which is stable and appropriate for ongoing clozapine use. Remains unable to be safely discharged to the community (1) Schizoaffective disorder, bipolar type: Plan 04/03/2023: Continue with current medications and tx plan. 04/02/2023: Continue with current medications and tx plan. 04/01/2023: Continue with current medications and tx plan. 03/31/2023: diversion meeting completed. next lab draw 04/03/23. 03/25/2023: tolerating consolidation of clozaril to hs. 03/24/2023: Continue with current medications and tx plan. 03/23/2023: Continue with current medications and tx plan. 03/22/2023: Clozapine 350mg HS, continue other current medications 03/21/2023: Consolidate clozapine to 350mg HS starting tomorrow. 03/20/2023: Continue current medications and tx plan. 03/19/2023: Continue current medications and tx plan. CBC with ANC tomorrow. 03/18/2023: Continue current medications and tx plan. Will plan to consider augmentation with haldol once abilify JOSHI effects have waned over the next few weeks. 03/17/2023: * continue LiCO3 600 mg QAM & 900 mg QHS, consider consolidating to 1500 mg QHS * continue clozapine 100 mg QAM & 250 mg QHS, consider consolidating to 350 mg QHS * discontinue aripiprazole lauroxil 400 mg IM monthly, last given 10 March 2023 (so will remain at significant level for several more weeks) * anticipate adding haloperidol, but at this point that would constitute 3 concurrent antipsychotics 03/16/2023: * continue LiCO3 600 mg QAM & 900 mg QHS, consider consolidating to 1500 mg QHS * recheck lithium level tomorrow * continue clozapine 100 mg QAM & 250 mg QHS, consider consolidating to 350 mg QHS * discontinue aripiprazole lauroxil 400 mg IM monthly, last given 10 March 2023 * anticipate adding haloperidol, but at this point that would constitute 3 concurrent antipsychotics * [place] 785 [place] 304(c) "involuntary" treatment at the [facility] 03/15/2023: * continue LiCO3 600 mg QAM & 900 mg QHS, consider consolidating to 1500 mg QHS * recheck lithium level in 2 days * continue clozapine 100 mg QAM & 250 mg QHS, consider consolidating to 350 mg QHS * discontinue aripiprazole lauroxil 400 mg IM monthly, last given 10 March 2023 * discontinue aripiprazole 5 mg daily 03/14/2023: The patient was admitted to the [facility] ([facility] unit) on q15 min checks (behavioral with suicide precautions) for safety. The patient will participate in group, recreational, and milieu therapies and will be offered additional individual and family sessions as clinically appropriate. Pt was recently started on aripiprazole lauroxil. Since his record indicates a failed trial of oral aripiprazole in the past, I will be circumspect about discontinuing clozapine at this time. * continue LiCO3 600 mg QAM & 900 mg QHS * continue clozapine 100 mg QAM & 250 mg QHS for the time being * continue aripiprazole lauroxil 400 mg IM monthly, next due 09 April 2023 * continue aripiprazole 5 mg daily Inventory Assets Strengths: voluntary, intelligent Needs: safety and stabilization, medication adjustment Suicide Risk Level Suicide Risk Level: Moderate (q15 min suicide checks) (SI with depression prior to admission but has been consistently denying SI since admission, responds to internal stimuli but engages easily, feels safe here and agrees to let nursing know if he requires additional support or feels unable to remain safe) Risk Factors Assessment Male: Yes : Yes Do You Have Access To A Gun?: No Health Problems: No Mental Health Diagnoses: Yes Substance Use Disorders: No Previous Attempt: No Family History of Suicide: No Previous Psychiatric Hospitalization: Yes Hopelessness: No Protective Factors Assessment Employed: No Good Rapport with Provider: Yes Interval History Identifying Information NASEEM MCGEE is a 27-year-old M who currently lives in [facility], has a history of Schizoaffective Disorder, Bipolar Type, and was admitted on 03/13/23 14:14 on a 201 voluntary commitment for susanne. He was committed under part 304(c) on 03/17/2023. Chief Complaint "I'm good". Review of Systems Sleep Information Total Hours of Sleep: 7 Meal Information Percent Meal Consumed - Breakfast: 50 Percent Meal Consumed - Lunch: 100 Percent Meal Consumed - Dinner: 85 Subjective Subjective Patient was seen & assessed and interval progress reviewed with treatment team nursing and social work. Still spends much of the day pacing and responding to internal stimuli. Tolerated a prolonged meeting with his CM and was able to stay seated and focused throughout this. Endorses stable mood. Denies any medication side effects. Physical Exam Psychiatric Orientation: alert and oriented x 3 Apperance: appropriately dressed and + disheveled Motor Behavior: no abnormal motor movements Affect: + blunted affect Mood: no depressed mood Thought Process: + concrete thought process Thought Content: reality based without delusions Suicidal Thoughts: denies suicidal thoughts Homicidal Thoughts: denies homicidal thoughts Hallucinations: + auditory hallucinations (responds throughout the day); no visual hallucinations Cognition: attention grossly intact and language grossly intact Estimated Intelligence: consistent with education level Insight: + limited insight Judgment: + limited judgement Vital Signs (Past 24 Hours) Last Vital Signs Temp 36.6 C 04/03/23 06:00 Pulse 70 04/03/23 06:00 Resp 18 04/03/23 06:00 BP 115/77 04/03/23 06:48 Pulse Ox 99 04/03/23 06:00 O2 Del Method Room Air 04/03/23 06:00 Results & Data ([facility]) Laboratory Results Laboratory Results - last 24 hr 04/03/23 06:35 WBC 12.10 H RBC 5.94 Hgb 16.2 Hct 49.2 MCV 82.8 MCH 27.3 MCHC 32.9 RDW Std Deviation 39.0 RDW Coeff of [place] 13.1 Plt Count 350 MPV 10.7 Immature Gran % (Auto) 0.7 Neut % (Auto) 59.2 Lymph % (Auto) 26.7 [place] % (Auto) 8.9 Eos % (Auto) 3.7 Baso % (Auto) 0.8 Neut # (Auto) 7.16 H Lymph # (Auto) 3.23 [place] # (Auto) 1.08 H Eos # (Auto) 0.45 Baso # (Auto) 0.10 Immature Gran # (Auto) 0.08 Current Inpatient Medications Current Inpatient Medications: Current Inpatient Medications Acetaminophen (Acetaminophen 325 Mg Tab) 650 mg PO Q4H PRN PRN Reason: Headache or Minor Fever Stop: 04/12/23 15:03 Al Hydrox/Mg Hydrox/Simethicone (Aluminum/Magnesium Susp 30 Ml Udc) 30 ml PO Q4H PRN PRN Reason: GI Upset Stop: 04/12/23 15:03 Aripiprazole (Aripiprazole 400 Mg Pre-Filled Syringe) 400 mg IM Q30D VIVIAN Stop: 05/09/23 07:59 Bismuth Subsalicylate (Bismuth Subsalicylate Liqd 236 Ml) 15 ml PO PRN PRN PRN Reason: Loose Stool Stop: 04/12/23 15:03 Clozapine (Clozapine 25 Mg Tab) 50 mg PO HS VIVIAN Stop: 04/21/23 21:59 Last Admin: 04/02/23 21:12 Dose: 50 mg Clozapine (Clozapine 100 Mg Tab) 300 mg PO HS VIVIAN Stop: 04/21/23 21:59 Last Admin: 04/02/23 21:12 Dose: 300 mg Docusate Calcium (Docusate Calcium 240 Mg Capsule) 240 mg PO DAILY PRN PRN Reason: constipation Stop: 04/12/23 16:39 Hydroxyzine HCl (Hydroxyzine Hcl 25 Mg Tab) 50 mg PO HSZ PRN PRN Reason: Insomnia Stop: 04/12/23 15:03 Hydroxyzine HCl (Hydroxyzine Hcl 25 Mg Tab) 25 mg PO Q4H PRN PRN Reason: Anxiety Stop: 04/12/23 15:03 [place] Carbonate ([place] Carbonate Slow Rel 300 Mg Tab) 600 mg PO QAM VIVIAN Stop: 04/13/23 08:59 Last Admin: 04/03/23 08:34 Dose: 600 mg [place] Carbonate ([place] Carbonate 450 Mg Tabcr) 900 mg PO HS VIVIAN Stop: 04/12/23 21:59 Last Admin: 04/02/23 21:13 Dose: 900 mg Magnesium Hydroxide (Magnesium Hydroxide Susp 30 Ml Udc) 30 ml PO DAILY PRN PRN Reason: Constipation Stop: 04/12/23 15:03 Polyethylene Glycol (Polyethylene (Miralax) 17 Gm Pack) 17 gm PO DAILY PRN PRN Reason: constipation Stop: 04/12/23 16:17 Sodium Chloride (Sodium Chloride 0.65% Na Soln 45 Ml ([place])) 1 - 2 sprays NA PRN PRN PRN Reason: Nasal Dryness/Congestion Stop: 04/12/23 15:03 Mental Health & Subst Abuse Tx Psychiatrist Name of Psychiatrist: Kody Rogers Psychiatrist's Time of Appointment with Psychiatrist: Please follow-up as needed. Psychiatric Appointment Comment: [address] [place] [address] Therapist Name of Therapist: Cheko [place] - [place] Therapist's Therapy Appointment Comment: [address] [facility] [address], [facility] [address], [place] [address] Linux Devops Engineer Name of Linux Devops Engineer: [facility] Phone Number for Linux Devops Engineer: [phone] Case Management Appointment Comment: Please resume your normal schedule. Post Discharge Appointments Primary Care Physician Name Of Family Doctor/PCP: Kody Dunn Primary Care Time of Appointment with PCP: Please follow-up as needed. Provider Appointment Comment: [address] [place] [address] [employer]rix Systems Administrator Name of [employer] Systems Administrator: [place] [facility] - Crisis Peer Phone Number of [employer] Systems Administrator: [phone] [employer] Systems Administrator Appointment Comment: Please resume your normal schedule. Contact Information Discharge Discharge Address: [address] [place] [id number]
[2023-04-03] MEDS: cloZAPine 25 MG TAB PO SCH (22:02)
[2023-04-03] MEDS: cloZAPine 100 MG TAB PO SCH (22:02)
[2023-04-03] MEDS: LITHIUM CARBONATE 450 MG TABCR PO SCH (22:02)
[2023-04-04] MEDS: LITHIUM CARBONATE SLOW REL 300 MG TAB PO SCH (08:07)
--- NOTE | 2023-04-04 08:45 | Psychiatric Progress Note ---
Date of Service April 04, 2023 Impression / Recommendations Impression 27 y/o M resident of [facility] with exacerbation Schizoaffective Disorder, Bipolar Type due to not taking medications [place] concerns for possible suicide attempt given recent SI with plans of walking into traffic. He is now on a 304 commitment and is unable to return to his personal penitentiary. [facility] referral in progress, the [facility] is currently reviewing. No other safe disposition options at this time. Referral in process with [facility] for possible CRR intensive community bed. [facility]PR due to hx psychosis with intermittent auditory hallucinations, guarded around peers, cannot tolerate a roommate 04/04/2023: continues to respond to internal stimuli but no disorganized behaviors, orthostatic changes but continues to tolerate clozapine. Remains unable to be safely discharged to the community, referral for CRR placed (1) Schizoaffective disorder, bipolar type: Plan 04/04/2023: Continue with current medications and tx plan. 04/03/2023: Continue with current medications and tx plan. 04/02/2023: Continue with current medications and tx plan. 04/01/2023: Continue with current medications and tx plan. 03/31/2023: diversion meeting completed. next lab draw 04/03/23. 03/25/2023: tolerating consolidation of clozaril to hs. 03/24/2023: Continue with current medications and tx plan. 03/23/2023: Continue with current medications and tx plan. 03/22/2023: Clozapine 350mg HS, continue other current medications 03/21/2023: Consolidate clozapine to 350mg HS starting tomorrow. 03/20/2023: Continue current medications and tx plan. 03/19/2023: Continue current medications and tx plan. CBC with ANC tomorrow. 03/18/2023: Continue current medications and tx plan. Will plan to consider a ugmentation with haldol once abilify JOSHI effects have waned over the next few weeks. 03/17/2023: * continue LiCO3 600 mg QAM & 900 mg QHS, consider consolidating to 1500 mg QHS * continue clozapine 100 mg QAM & 250 mg QHS, consider consolidating to 350 mg QHS * discontinue aripiprazole lauroxil 400 mg IM monthly, last given 10 March 2023 (so will remain at significant level for several more weeks) * anticipate adding haloperidol, but at this point that would constitute 3 concurrent antipsychotics 03/16/2023: * continue LiCO3 600 mg QAM & 900 mg QHS, consider consolidating to 1500 mg QHS * recheck lithium level tomorrow * continue clozapine 100 mg QAM & 250 mg QHS, consider consolidating to 350 mg QHS * discontinue aripiprazole lauroxil 400 mg IM monthly, last given 10 March 2023 * anticipate adding haloperidol, but at this point that would constitute 3 concurrent antipsychotics * [place] 785 [place] 304(c) "involuntary" treatment at [facility] 03/15/2023: * continue LiCO3 600 mg QAM & 900 mg QHS, consider consolidating to 1500 mg QHS * recheck lithium level in 2 days * continue clozapine 100 mg QAM & 250 mg QHS, consider consolidating to 350 mg QHS * discontinue aripiprazole lauroxil 400 mg IM monthly, last given 10 March 2023 * discontinue aripiprazole 5 mg daily 03/14/2023: The patient was admitted to the [facility] ([facility]) on q15 min checks (behavioral with suicide precautions) for safety. The patient will participate in group, recreational, and milieu therapies and will be offered additional individual and family sessions as clinically appropriate. Pt was recently started on aripiprazole lauroxil. Since his record indicates a failed trial of oral aripiprazole in the past, I will be circumspect about discontinuing clozapine at this time. * continue LiCO3 600 mg QAM & 900 mg QHS * continue clozapine 100 mg QAM & 250 mg QHS for the time being * continue aripiprazole lauroxil 400 mg IM monthly, next due 09 April 2023 * continue aripiprazole 5 mg daily Inventory Assets Strengths: voluntary, intelligent Needs: safety and stabilization, medication adjustment Suicide Risk Level Suicide Risk Level: Moderate (q15 min suicide checks) (SI with depression prior to admission but has been consistently denying SI since admission, responds to internal stimuli but engages easily, feels safe here and agrees to let nursing know if he requires additional support or feels unable to remain safe) Risk Factors Assessment Male: Yes : Yes Do You Have Access To A Gun?: No Health Problems: No Mental Health Diagnoses: Yes Substance Use Disorders: No Previous Attempt: No Family History of Suicide: No Previous Psychiatric Hospitalization: Yes Hopelessness: No Protective Factors Assessment Employed: No Good Rapport with Provider: Yes Interval History Identifying Information NASEEM MCGEE is a 27-year-old M who currently lives in [facility], has a history of Schizoaffective Disorder, Bipolar Type, and was admitted on 03/13/23 14:14 on a 201 voluntary commitment for susanne. He was committed under part 304(c) on 03/17/2023. Chief Complaint "I'm ok". Review of Systems Sleep Information Total Hours of Sleep: 6 Meal Information Percent Meal Consumed - Breakfast: 50 Percent Meal Consumed - Lunch: 100 Percent Meal Consumed - Dinner: 100 Subjective Subjective Patient was seen & assessed and interval progress reviewed with treatment team nursing and social work. Spends time walking in the halls, at times observed listening to music in the group room. Today reports he feels "ok". Denies any medication side effects though later reported some dizziness to RN and vital signs notable for orthostatic hypotension. Physical Exam Psychiatric Orientation: alert and oriented x 3 Apperance: appropriately dressed and + disheveled Motor Behavior: no abnormal motor movements Affect: + blunted affect Mood: no depressed mood Thought Process: + concrete thought process Thought Content: reality based without delusions Suicidal Thoughts: denies suicidal thoughts Homicidal Thoughts: denies homicidal thoughts Hallucinations: + auditory hallucinations (responds throughout the day); no visual hallucinations Cognition: attention grossly intact and language grossly intact Estimated Intelligence: consistent with education level Insight: + limited insight Judgment: + limited judgement Vital Signs (Past 24 Hours) Last Vital Signs Temp 36.4 C L 04/04/23 06:00 Pulse 68 04/04/23 06:00 Resp 18 04/04/23 06:00 BP 132/80 04/04/23 06:32 Pulse Ox 97 04/04/23 06:00 O2 Del Method Room Air 04/04/23 06:00 Results & Data ([facility]) Current Inpatient Medications Current Inpatient Medications: Current Inpatient Medications Acetaminophen (Acetaminophen 325 Mg Tab) 650 mg PO Q4H PRN PRN Reason: Headache or Minor Fever Stop: 04/12/23 15:03 Al Hydrox/Mg Hydrox/Simethicone (Aluminum/Magnesium Susp 30 Ml Udc) 30 ml PO Q4H PRN PRN Reason: GI Upset Stop: 04/12/23 15:03 Aripiprazole (Aripiprazole 400 Mg Pre-Filled Syringe) 400 mg IM Q30D [facility] Stop: 05/09/23 07:59 Bismuth Subsalicylate (Bismuth Subsalicylate Liqd 236 Ml) 15 ml PO PRN PRN PRN Reason: Loose Stool Stop: 04/12/23 15:03 Clozapine (Clozapine 25 Mg Tab) 50 mg PO HS [facility] Stop: 04/21/23 21:59 Last Admin: 04/03/23 22:02 Dose: 50 mg Clozapine (Clozapine 100 Mg Tab) 300 mg PO HS [facility] Stop: 04/21/23 21:59 Last Admin: 04/03/23 22:02 Dose: 300 mg Docusate Calcium (Docusate Calcium 240 Mg Capsule) 240 mg PO DAILY PRN PRN Reason: constipation Stop: 04/12/23 16:39 Hydroxyzine HCl (Hydroxyzine Hcl 25 Mg Tab) 50 mg PO HSZ PRN PRN Reason: Insomnia Stop: 04/12/23 15:03 Hydroxyzine HCl (Hydroxyzine Hcl 25 Mg Tab) 25 mg PO Q4H PRN PRN Reason: Anxiety Stop: 04/12/23 15:03 [place] Carbonate ([place] Carbonate Slow Rel 300 Mg Tab) [facility] [place] [facility] [place] Stop: 04/13/23 08:59 Last Admin: 04/04/23 08:07 Dose: 600 mg [place] Carbonate ([place] Carbonate 450 Mg Tabcr) 900 mg PO HS [facility] Stop: 04/12/23 21:59 Last Admin: 04/03/23 22:02 Dose: 900 mg Magnesium Hydroxide (Magnesium Hydroxide Susp 30 Ml Udc) 30 ml PO DAILY PRN PRN Reason: Constipation Stop: 04/12/23 15:03 Polyethylene Glycol (Polyethylene (Miralax) 17 Gm Pack) 17 gm PO DAILY PRN PRN Reason: constipation Stop: 04/12/23 16:17 Sodium Chloride (Sodium Chloride 0.65% Na Soln 45 Ml ([place])) 1 - 2 sprays NA PRN PRN PRN Reason: Nasal Dryness/Congestion Stop: 04/12/23 15:03 Mental Health & Subst Abuse Tx Psychiatrist Name of Psychiatrist: Kody Rogers Psychiatrist's Time of Appointment with Psychiatrist: Please follow-up as needed. Psychiatric Appointment Comment: [address] [place] [address] Therapist Name of Therapist: [facility] [place] Therapist's Therapy Appointment Comment: [address], [address], [place] [address] Lime Spreader Name of Lime Spreader: [facility] [place] Phone Number for Lime Spreader: [phone] Case Management Appointment Comment: Please resume your normal schedule. Post Discharge Appointments Primary Care Physician Name Of Family Doctor/PCP: Kody Dunn [facility] Time of Appointment with PCP: Please follow-up as needed. Provider Appointment Comment: [address] [place] [address] Chairman Of The Board Name of Chairman Of The Board: [place] [facility] Peer Phone Number of Chairman Of The Board: [phone] Chairman Of The Board Appointment Comment: Please resume your normal schedule. Contact Information Discharge Discharge Address: [address] [place] [id number]
[2023-04-04] MEDS: LITHIUM CARBONATE 450 MG TABCR PO SCH (20:59)
[2023-04-04] MEDS: cloZAPine 100 MG TAB PO SCH (21:00)
[2023-04-04] MEDS: cloZAPine 25 MG TAB PO SCH (21:00)
[2023-04-05] MEDS: LITHIUM CARBONATE SLOW REL 300 MG TAB PO SCH (08:38)
--- NOTE | 2023-04-05 09:03 | Psychiatric Progress Note ---
Date of Service April 05, 2023 Impression / Recommendations Impression 27 y/o M resident of personal snf with exacerbation Schizoaffective Disorder, Bipolar Type due to not taking medications [place] concerns for possible suicide attempt given recent SI with plans of walking into traffic. He is now on a 304 commitment and is unable to return to his personal snf. [facility] referral in progress, the [facility] is currently reviewing. No other safe disposition options at this time. Referral in process with [facility] for possible CRR intensive community bed. [facility] due to hx psychosis with intermittent auditory hallucinations, guarded around peers, cannot tolerate a roommate 04/05/2023: continues to respond to internal stimuli with some drawings referencing magic and disorganized. Tolerating his medications. (1) Schizoaffective disorder, bipolar type: Plan 04/05/2023: Continue with current medications and tx plan. 04/04/2023: Continue with current medications and tx plan. 04/03/2023: Continue with current medications and tx plan. 04/02/2023: Continue with current medications and tx plan. 04/01/2023: Continue with current medications and tx plan. 03/31/2023: diversion meeting completed. next lab draw 04/03/23. 03/25/2023: tolerating consolidation of clozaril to hs. 03/24/2023: Continue with current medications and tx plan. 03/23/2023: Continue with current medications and tx plan. 03/22/2023: Clozapine 350mg HS, continue other current medications 03/21/2023: Consolidate clozapine to 350mg HS starting tomorrow. 03/20/2023: Continue current medications and tx plan. 03/19/2023: Continue current medications and tx plan. CBC with ANC tomorrow. 03/18/2023: Continue current medications and tx plan. Will plan to consider augmentation with haldol once abilify JOSHI effects have waned over the next few weeks. 03/17/2023: * continue LiCO3 600 mg QAM & 900 mg QHS, consider consolidating to 1500 mg QHS * continue clozapine 100 mg QAM & 250 mg QHS, consider consolidating to 350 mg QHS * discontinue aripiprazole lauroxil 400 mg IM monthly, last given 10 March 2023 (so will remain at significant level for several more weeks) * anticipate adding haloperidol, but at this point that would constitute 3 concurrent antipsychotics 03/16/2023: * continue LiCO3 600 mg QAM & 900 mg QHS, consider consolidating to 1500 mg QHS * recheck lithium level tomorrow * continue clozapine 100 mg QAM & 250 mg QHS, consider consolidating to 350 mg QHS * discontinue aripiprazole lauroxil 400 mg IM monthly, last given 10 March 2023 * anticipate adding haloperidol, but at this point that would constitute 3 concurrent antipsychotics * [place] 785 [place] 304(c) "involuntary" treatment at the [facility] 03/15/2023: * continue LiCO3 600 mg QAM & 900 mg QHS, consider consolidating to 1500 mg QHS * recheck lithium level in 2 days * continue clozapine 100 mg QAM & 250 mg QHS, consider consolidating to 350 mg QHS * discontinue aripiprazole lauroxil 400 mg IM monthly, last given 10 March 2023 * discontinue aripiprazole 5 mg daily 03/14/2023: The patient was admitted to the [facility] ([facility] unit) on q15 min checks (behavioral with suicide precautions) for safety. The patient will participate in group, recreational, and milieu therapies and will be offered additional individual and family sessions as clinically appropriate. Pt was recently started on aripiprazole lauroxil. Since his record indicates a failed trial of oral aripiprazole in the past, I will be circumspect about discontinuing clozapine at this time. * continue LiCO3 600 mg QAM & 900 mg QHS * continue clozapine 100 mg QAM & 250 mg QHS for the time being * continue aripiprazole lauroxil 400 mg IM monthly, next due 09 April 2023 * continue aripiprazole 5 mg daily Inventory Assets Strengths: voluntary, intelligent Needs: safety and stabilization, medication adjustment Suicide Risk Level Suicide Risk Level: Moderate (q15 min suicide checks) (SI with depression prior to admission but has been consistently denying SI since admission, responds to internal stimuli but engages easily, feels safe here and agrees to let nursing know if he requires additional support or feels unable to remain safe) Risk Factors Assessment Male: Yes : Yes Do You Have Access To A Gun?: No Health Problems: No Mental Health Diagnoses: Yes Substance Use Disorders: No Previous Attempt: No Family History of Suicide: No Previous Psychiatric Hospitalization: Yes Hopelessness: No Protective Factors Assessment Employed: No Good Rapport with Provider: Yes Interval History Identifying Information NASEEM MCGEE is a 27-year-old M who currently lives in [facility], has a history of Schizoaffective Disorder, Bipolar Type, and was admitted on 03/13/23 14:14 on a 201 voluntary commitment for susanne. He was committed under part 304(c) on 03/17/2023. Chief Complaint "I'm doing fine". Review of Systems Sleep Information Total Hours of Sleep: 6.75 Meal Information Percent Meal Consumed - Breakfast: 50 Percent Meal Consumed - Lunch: 100 Percent Meal Consumed - Dinner: 50 Subjective Subjective Patient was seen & assessed and interval progress reviewed with treatment team nursing and social work. Observed writing and talking to himself as well as pacing much of the day. Some of what he wrote noted to be disorganized statements regarding incomplete equations and reference to magic. In meeting with him he states he was drawing things like superheros from [employer]. He denies any medication side effects. Physical Exam Psychiatric Orientation: alert and oriented x 3 Apperance: appropriately dressed and + disheveled Motor Behavior: no abnormal motor movements Affect: + blunted affect Mood: no depressed mood Thought Process: + concrete thought process Thought Content: reality based without delusions Suicidal Thoughts: denies suicidal thoughts Homicidal Thoughts: denies homicidal thoughts Hallucinations: + auditory hallucinations (responds throughout the day); no vi sual hallucinations Cognition: attention grossly intact and language grossly intact Estimated Intelligence: consistent with education level Insight: + limited insight Judgment: + limited judgement Vital Signs (Past 24 Hours) Last Vital Signs Temp 36.4 C 04/05/23 06:00 Pulse 92 H 04/05/23 06:33 Resp 18 04/05/23 06:00 BP 115/77 04/05/23 06:33 Pulse Ox 97 04/04/23 06:00 O2 Del Method Room Air 04/04/23 06:00 Results & Data ([facility]) Current Inpatient Medications Current Inpatient Medications: Current Inpatient Medications Acetaminophen (Acetaminophen 325 Mg Tab) 650 mg PO Q4H PRN PRN Reason: Headache or Minor Fever Stop: 04/12/23 15:03 Al Hydrox/Mg Hydrox/Simethicone (Aluminum/Magnesium Susp 30 Ml Udc) 30 ml PO Q4H PRN PRN Reason: GI Upset Stop: 04/12/23 15:03 Aripiprazole (Aripiprazole 400 Mg Pre-Filled Syringe) 400 mg IM Q30D [facility] Stop: 05/09/23 07:59 Bismuth Subsalicylate (Bismuth Subsalicylate Liqd 236 Ml) 15 ml PO PRN PRN PRN Reason: Loose Stool Stop: 04/12/23 15:03 Clozapine (Clozapine 25 Mg Tab) 50 mg PO HS [facility] Stop: 04/21/23 21:59 Last Admin: 04/04/23 21:00 Dose: 50 mg Clozapine (Clozapine 100 Mg Tab) 300 mg PO HS [facility] Stop: 04/21/23 21:59 Last Admin: 04/04/23 21:00 Dose: 300 mg Docusate Calcium (Docusate Calcium 240 Mg Capsule) 240 mg PO DAILY PRN PRN Reason: constipation Stop: 04/12/23 16:39 Hydroxyzine HCl (Hydroxyzine Hcl 25 Mg Tab) 50 mg PO HSZ PRN PRN Reason: Insomnia Stop: 04/12/23 15:03 Hydroxyzine HCl (Hydroxyzine Hcl 25 Mg Tab) 25 mg PO Q4H PRN PRN Reason: Anxiety Stop: 04/12/23 15:03 [place] Carbonate ([place] Carbonate Slow Rel 300 Mg Tab) 600 [facility] [place] Stop: 04/13/23 08:59 Last Admin: 04/05/23 08:38 Dose: 600 mg [place] Carbonate ([place] Carbonate 450 Mg Tabcr) 900 mg PO HS [facility] Stop: 04/12/23 21:59 Last Admin: 04/04/23 20:59 Dose: 900 mg Magnesium Hydroxide (Magnesium Hydroxide Susp 30 Ml Udc) 30 ml PO DAILY PRN PRN Reason: Constipation Stop: 04/12/23 15:03 Polyethylene Glycol (Polyethylene (Miralax) 17 Gm Pack) 17 gm PO DAILY PRN PRN Reason: constipation Stop: 04/12/23 16:17 Sodium Chloride (Sodium Chloride 0.65% Na Soln 45 Ml ([place])) 1 - 2 sprays NA PRN PRN PRN Reason: Nasal Dryness/Congestion Stop: 04/12/23 15:03 Mental Health & Subst Abuse Tx Psychiatrist Name of Psychiatrist: Kody Rogers Psychiatrist's Time of Appointment with Psychiatrist: Please follow-up as needed. Psychiatric Appointment Comment: [address] [place] [address] Therapist Name of Therapist: [facility] Therapist's Therapy Appointment Comment: [address], [address], [place] [address] Metrology Specialist Name of Metrology Specialist: [facility] [place] Phone Number for Metrology Specialist: [phone] Case Management Appointment Comment: Please resume your normal schedule. Post Discharge Appointments Primary Care Physician Name Of Family Doctor/PCP: Kody Dunn Primary Care Time of Appointment with PCP: Please follow-up as needed. Provider Appointment Comment: [address] [place] [address] Senior Net Software Engineer Name of Senior Net Software Engineer: [place] [facility] Peer Phone Number of Senior Net Software Engineer: [phone] Senior Net Software Engineer Appointment Comment: Please resume your normal schedule. Contact Information Discharge Discharge Address: [address] [place] [id number]
[2023-04-05] MEDS: cloZAPine 25 MG TAB PO SCH (20:45)
[2023-04-05] MEDS: LITHIUM CARBONATE 450 MG TABCR PO SCH (20:45)
[2023-04-05] MEDS: cloZAPine 100 MG TAB PO SCH (20:45)
[2023-04-06] MEDS: LITHIUM CARBONATE SLOW REL 300 MG TAB PO SCH (08:16)
--- NOTE | 2023-04-06 14:21 | Psychiatric Progress Note ---
Date of Service April 06, 2023 Impression / Recommendations Impression 27 y/o M resident of personal penit[facility]iary with exacerbation Schizoaffective Disorder, Bipolar Type due to not taking medications [place] concerns for possible suicide attempt given recent SI with plans of walking into traffic. He is now on a 304 commitment and is unable to return to his personal penitentiary. [facility] referral in progress, the [facility] is currently reviewing. No other safe disposition options at this time. Referral in process with [facility] for possible [facility] intensive community bed. [facility] due to hx psychosis with intermittent auditory hallucinations, guarded around peers, cannot tolerate a roommate 04/06/2023: continues to respond to internal stimuli but today speaking more about recent delusions and beliefs about time travel. May be evidence of waning effect from his most recent abilify JOSHI versus less guarded due to increased comfort speaking with providers. (1) Schizoaffective disorder, bipolar type: Plan 04/06/2023: Discussed option to consider haldol if interested instead of abilify for next JOSHI, he will consider this (given prior positive response to clozapine and haldol combination) 04/05/2023: Continue with current medications and tx plan. 04/04/2023: Continue with current medications and tx plan. 04/03/2023: Continue with current medications and tx plan. 04/02/2023: Continue with current medications and tx plan. 04/01/2023: Continue with current medications and tx plan. 03/31/2023: diversion meeting completed. next lab draw 04/03/23. 03/25/2023: tolerating consolidation of clozaril to hs. 03/24/2023: Continue with current medications and tx plan. 03/23/2023: Continue with current medications and tx plan. 03/22/2023: Clozapine 350mg HS, continue other current medications 03/21/2023: Consolidate clozapine to 350mg HS starting tomorrow. 03/20/2023: Continue current medications and tx plan. 03/19/2023: Continue current medications and tx plan. CBC with ANC tomorrow. 03/18/2023: Continue current medications and tx plan. Will plan to consider augmentation with haldol once abilify JOSHI effects have waned over the next few weeks. 03/17/2023: * continue LiCO3 600 mg QAM & 900 mg QHS, consider consolidating to 1500 mg QHS * continue clozapine 100 mg QAM & 250 mg QHS, consider consolidating to 350 mg QHS * discontinue aripiprazole lauroxil 400 mg IM monthly, last given 10 March 2023 (so will remain at significant level for several more weeks) * anticipate adding haloperidol, but at this point that would constitute 3 concurrent antipsychotics 03/16/2023: * continue LiCO3 600 mg QAM & 900 mg QHS, consider consolidating to 1500 mg QHS * recheck lithium level tomorrow * continue clozapine 100 mg QAM & 250 mg QHS, consider consolidating to 350 mg QHS * discontinue aripiprazole lauroxil 400 mg IM monthly, last given 10 March 2023 * anticipate adding haloperidol, but at this point that would constitute 3 concurrent antipsychotics * [place] 785 [place] 304(c) "involuntary" treatment at the [facility] 03/15/2023: * continue LiCO3 600 mg QAM & 900 mg QHS, consider consolidating to 1500 mg QHS * recheck lithium level in 2 days * continue clozapine 100 mg QAM & 250 mg QHS, consider consolidating to 350 mg QHS * discontinue aripiprazole lauroxil 400 mg IM monthly, last given 10 March 2023 * discontinue aripiprazole 5 mg daily 03/14/2023: The patient was admitted to the [facility] ([facility] mental health unit) on q15 min checks (behavioral with suicide precautions) for safety. The patient will participate in group, recreational, and milieu therapies and will be offered additional individual and family sessions as clinically appropriate. Pt was recently started on aripiprazole lauroxil. Since his record indicates a failed trial of oral aripiprazole in the past, I will be circumspect about discontinuing clozapine at this time. * continue LiCO3 600 mg QAM & 900 mg QHS * continue clozapine 100 mg QAM & 250 mg QHS for the time being * continue aripiprazole lauroxil 400 mg IM monthly, next due 09 April 2023 * continue aripiprazole 5 mg daily Inventory Assets Strengths: voluntary, intelligent Needs: safety and stabilization, medication adjustment Suicide Risk Level Suicide Risk Level: Moderate (q15 min suicide checks) (SI with depression prior to admission but has been consistently denying SI since admission, responds to internal stimuli but engages easily, feels safe here and agrees to let nursing know if he requires additional support or feels unable to remain safe) Risk Factors Assessment Male: Yes : Yes Do You Have Access To A Gun?: No Health Problems: No Mental Health Diagnoses: Yes Substance Use Disorders: No Previous Attempt: No Family History of Suicide: No Previous Psychiatric Hospitalization: Yes Hopelessness: No Protective Factors Assessment Employed: No Good Rapport with Provider: Yes Interval History Identifying Information NASEEM MCGEE is a 27-year-old M who currently lives in [facility], has a history of Schizoaffective Disorder, Bipolar Type, and was admitted on 03/13/23 14:14 on a 201 voluntary commitment for susanne. He was committed under part 304(c) on 03/17/2023. Chief Complaint "I've been thinking about time travel". Review of Systems Sleep Information Total Hours of Sleep: 8 Meal Information Percent Meal Consumed - Breakfast: 0 Percent Meal Consumed - Lunch: 50 Percent Meal Consumed - Dinner: 100 Subjective Subjective Patient was seen & assessed and interval progress reviewed with treatment team nursing and social work. Responding to internal stimuli while walking in the halls. States prior to coming to the hospital this time he was "having a delusion about running away and getting picked up by a car" and thinks this is why he cannot return to his previous assisted living home. Reflects on being lonely there due to people frequently moving in and out, wishes he could have more consistency with people around him. States he's been thinking a lot about time travel today. Physical Exam Psychiatric Orientation: alert and oriented x 3 Apperance: appropriately dressed and + disheveled Motor Behavior: no abnormal motor movements Affect: + blunted affect Mood: no depressed mood Thought Process: + concrete thought process Thought Content: + ideas of reference (vs delusions about time travel and magic) Suicidal Thoughts: denies suicidal thoughts Homicidal Thoughts: denies homicidal thoughts Hallucinations: + auditory hallucinations (responds throughout the day); no visual hallucinations Cognition: attention grossly intact and language grossly intact Estimated Intelligence: consistent with education level Insight: + limited insight Judgment: + limited judgement Vital Signs (Past 24 Hours) Last Vital Signs Temp 36.9 C 04/06/23 06:00 Pulse 75 04/06/23 06:00 Resp 16 04/06/23 06:00 BP 99/68 L 04/06/23 06:32 Pulse Ox 98 04/06/23 06:00 O2 Del Method Room Air 04/06/23 06:00 Results & Data ([facility]) Current Inpatient Medications Current Inpatient Medications: Current Inpatient Medications Acetaminophen (Acetaminophen 325 Mg Tab) 650 mg PO Q4H PRN PRN Reason: Headache or Minor Fever Stop: 04/12/23 15:03 Al Hydrox/Mg Hydrox/Simethicone (Aluminum/Magnesium Susp 30 Ml Udc) 30 ml PO Q4H PRN PRN Reason: GI Upset Stop: 04/12/23 15:03 Aripiprazole (Aripiprazole 400 Mg Pre-Filled Syringe) 400 mg IM Q30D VIVIAN Stop: 05/09/23 07:59 Bismuth Subsalicylate (Bismuth Subsalicylate Liqd 236 Ml) 15 ml PO PRN PRN PRN Reason: Loose Stool Stop: 04/12/23 15:03 Clozapine (Clozapine 25 Mg Tab) 50 mg PO HS VIVIAN Stop: 04/21/23 21:59 Last Admin: 04/05/23 20:45 Dose: 50 mg Clozapine (Clozapine 100 Mg Tab) 300 mg PO HS VIVIAN Stop: 04/21/23 21:59 Last Admin: 04/05/23 20:45 Dose: 300 mg Docusate Calcium (Docusate Calcium 240 Mg Capsule) 240 mg PO DAILY PRN PRN Reason: constipation Stop: 04/12/23 16:39 Hydroxyzine HCl (Hydroxyzine Hcl 25 Mg Tab) 50 mg PO HSZ PRN PRN Reason: Insomnia Stop: 04/12/23 15:03 Hydroxyzine HCl (Hydroxyzine Hcl 25 Mg Tab) 25 mg PO Q4H PRN PRN Reason: Anxiety Stop: 04/12/23 15:03 [place] Carbonate ([place] Carbonate Slow Rel 300 Mg Tab) 600 mg PO QAM VIVIAN Stop: 04/13/23 08:59 Last Admin: 04/06/23 08:16 Dose: 600 mg [place] Carbonate ([place] Carbonate 450 Mg Tabcr) 900 mg PO HS VIVIAN Stop: 04/12/23 21:59 Last Admin: 04/05/23 20:45 Dose: 900 mg Magnesium Hydroxide (Magnesium Hydroxide Susp 30 Ml Udc) 30 ml PO DAILY PRN PRN Reason: Constipation Stop: 04/12/23 15:03 Polyethylene Glycol (Polyethylene (Miralax) 17 Gm Pack) 17 gm PO DAILY PRN PRN Reason: constipation Stop: 04/12/23 16:17 Sodium Chloride (Sodium Chloride 0.65% Na Soln 45 Ml ([place])) 1 - 2 sprays NA PRN PRN PRN Reason: Nasal Dryness/Congestion Stop: 04/12/23 15:03 Mental Health & Subst Abuse Tx Psychiatrist Name of Psychiatrist: Kody Rogers Psychiatrist's Time of Appointment with Psychiatrist: Please follow-up as needed. Psychiatric Appointment Comment: [address] [place] [address] Therapist Name of Therapist: Cheko England - Marilou Therapist's Therapy Appointment Comment: [address], [place] [address], [place] [address] Race Relations Professor Name of Race Relations Professor: [facility] Phone Number for Race Relations Professor: [phone] Case Management Appointment Comment: Please resume your normal schedule. Post Discharge Appointments Primary Care Physician Name Of Family Doctor/PCP: Kody Dunn Primary [facility] Time of Appointment with PCP: Please follow-up as needed. Provider Appointment Comment: [address] [place] [address] Hollow Core Door Frame Assembler Name of Hollow Core Door Frame Assembler: [facility] Crisis Peer Phone Number of Hollow [employer] Door Frame Assembler: [phone] [employer] Door Frame Assembler Appointment Comment: Please resume your normal schedule. Contact Information Discharge Discharge Address: [address] [place] [id number]
[2023-04-06] MEDS: LITHIUM CARBONATE 450 MG TABCR PO SCH (21:45)
[2023-04-06] MEDS: cloZAPine 100 MG TAB PO SCH (21:46)
[2023-04-06] MEDS: cloZAPine 25 MG TAB PO SCH (21:46)
[2023-04-07] MEDS: LITHIUM CARBONATE SLOW REL 300 MG TAB PO SCH (08:15)
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
[2023-04-07] MEDS: cloZAPine 100 MG TAB PO SCH (20:45)
[2023-04-07] MEDS: cloZAPine 25 MG TAB PO SCH (20:45)
[2023-04-07] MEDS: LITHIUM CARBONATE 450 MG TABCR PO SCH (20:45)
[2023-04-08] MEDS: LITHIUM CARBONATE SLOW REL 300 MG TAB PO SCH (09:01)
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
[2023-04-08] MEDS ORDERED: HALOPERIDOL DECANOATE INJ 50 MG/ML VIAL IM SCH (17:30)
[2023-04-08] MEDS: LITHIUM CARBONATE 450 MG TABCR PO SCH (20:50)
[2023-04-08] MEDS: cloZAPine 25 MG TAB PO SCH (20:50)
[2023-04-08] MEDS: cloZAPine 100 MG TAB PO SCH (20:51)
[2023-04-09] MEDS ORDERED: ARIPiprazole 400 MG PRE-FILLED SYRINGE IM SCH (08:00)
[2023-04-09] MEDS: LITHIUM CARBONATE SLOW REL 300 MG TAB PO SCH (09:22)
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
[2023-04-09] MEDS: cloZAPine 25 MG TAB PO SCH (21:17)
[2023-04-09] MEDS: cloZAPine 100 MG TAB PO SCH (21:18)
[2023-04-09] MEDS: LITHIUM CARBONATE 450 MG TABCR PO SCH (21:19)
[2023-04-10 08:24] LABS: Basophils # (auto) 0.07 K/uL (0-0.2); Basophils % (auto) 0.4 %; Eosinophils # (auto) 0.22 K/uL (0-0.50); Eosinophils % (auto) 1.4 %; Hematocrit (blood only) 47.5 % (42.0-52.0); Hemoglobin 16.1 g/dl (14.0-18.0); Immature Granulocytes # (auto) 0.08 K/uL (0.01-0.20); Immature Granulocytes % (auto) 0.5 %; Lymphocytes # (auto) 1.64 K/uL (1.2-3.4); Lymphocytes % (auto) 10.2 %; Mean Corpuscular Hemoglobin 27.9 pg (25.0-34.0); Mean Corpuscular Hgb Conc 33.9 g/dL (32.0-36.0); Mean Corpuscular Volume 82.2 fL (80.0-100.0); Mean Platelet Volume 10.7 fL (9.4-12.4); Monocytes # (auto) 1.07 K/uL (0.11-0.59); Monocytes % (auto) 6.7 %; Neutrophils # (auto) 12.96 K/uL (1.40-6.50); Neutrophils % (auto) 80.8 %; Platelet Count 322 K/uL (130-400); RDW Coefficient of Variation 13.1 % (11.5-14.5); RDW Standard Deviation 38.8 fL (36.4-46.3); Red Blood Count 5.78 M/uL (4.70-6.10); White Blood Count 16.04 K/ul (4.8-10.8)
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
[2023-04-10] MEDS: cloZAPine 100 MG TAB PO SCH (20:45)
[2023-04-10] MEDS: cloZAPine 25 MG TAB PO SCH (20:46)
[2023-04-10] MEDS: LITHIUM CARBONATE SLOW REL 300 MG TAB PO SCH (20:48)
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
[2023-04-11] MEDS: cloZAPine 100 MG TAB PO SCH (21:06)
[2023-04-11] MEDS: cloZAPine 25 MG TAB PO SCH (21:08)
[2023-04-11] MEDS: LITHIUM CARBONATE SLOW REL 300 MG TAB PO SCH (21:09)
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
[2023-04-12] MEDS: cloZAPine 25 MG TAB PO SCH (21:00)
[2023-04-12] MEDS: cloZAPine 100 MG TAB PO SCH (21:00)
[2023-04-12] MEDS: LITHIUM CARBONATE SLOW REL 300 MG TAB PO SCH (21:00)
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
[2023-04-13] MEDS: LITHIUM CARBONATE SLOW REL 300 MG TAB PO SCH (20:49)
[2023-04-13] MEDS: cloZAPine 25 MG TAB PO SCH (20:51)
[2023-04-13] MEDS: cloZAPine 100 MG TAB PO SCH (20:51)
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
[2023-04-14] MEDS: cloZAPine 25 MG TAB PO SCH (21:40)
[2023-04-14] MEDS: LITHIUM CARBONATE SLOW REL 300 MG TAB PO SCH (21:40)
[2023-04-14] MEDS: cloZAPine 100 MG TAB PO SCH (21:40)
--- NOTE | 2023-04-15 10:05 | Psychiatric Progress Note ---
Date of Service April 15, 2023 Impression / Recommendations Impression 27 y/o M resident of personal nursing home with exacerbation Schizoaffective Disorder, Bipolar Type due to not taking medications [place] concerns for possible suicide attempt given recent SI with plans of walking into traffic. He is now on a 304 commitment and is unable to return to his personal nursing home. [facility] referral in progress, the [facility] is currently reviewing. No other safe disposition options at this time. Referral in process with [facility] for possible [facility] intensive community bed. [facility]PR due to hx psychosis with intermittent auditory hallucinations, guarded around peers, cannot tolerate a roommate 04/15/2023: Reviewed interim progress per Dr. Carson. Tolerating haldol decanoate JOSHI well with some seeming reduction in frequency of responses to internal stimuli but still often internally preoccupied. Tolerating medications without side effects. Remains unable to be safely discharged. (1) Schizoaffective disorder, bipolar type: Plan 04/15/2023: Continue current medications and tx plan. 04/14/2023: (no change in plan) * continue lithium 1,500 mg QHS * continue clozapine 350 mg QHS * continue haloperidol decanoate 25 mg IM Q4 Wk; most recent dose * continue work towards identifying appropriate outpatient/residential placement 04/13/2023: (no change in plan) * continue lithium 1,500 mg QHS * continue clozapine 350 mg QHS * continue haloperidol decanoate 25 mg IM Q4 Wk; most recent dose * continue work towards identifying appropriate outpatient/residential placement 04/12/2023: (no change in plan) * continue lithium 1,500 mg QHS * continue clozapine 350 mg QHS * continue haloperidol decanoate 25 mg IM Q4 Wk; most recent dose * continue work towards identifying appropriate outpatient/residential placement 04/11/2023: (no change in plan) * continue lithium 1,500 mg QHS * continue clozapine 350 mg QHS * continue haloperidol decanoate 25 mg IM Q4 Wk; most recent dose * has no safe placement available but otherwise appropriate for discharge 04/10/2023: * consolidate lithium to 1,500 mg QHS * continue clozapine 350 mg QHS * continue haloperidol decanoate 25 mg IM Q4 Wk; most recent dose * has no safe placement available 04/09/2023: (no change in plan) * continue lithium 600 mg QAM & 900 mg QHS - most recent level 1.0 mmol/L on 03/17/2023; consider consolidation to 1,500 mg QHS * continue clozapine 350 mg QHS * continue haloperidol decanoate 25 mg IM Q4 Wk; most recent dose * has no safe placement available 04/08/2023: * discontinue aripiprazole lauroxil (next dose due tomorrow) * start haloperidol decanoate 25 mg IM Q4 Wk * Continue clozapine 350 mg QHS * Continue lithium 600 mg QAM & 900 mg QHS - most recent level 1.0 mmol/L on 03/17/2023; consider consolidation to 1,500 mg QHS * At this point scant need for [facility] seen, yet has no place to go 04/07/2023: Continue current medications and tx plan. 04/06/2023: Discussed option to consider haldol if interested instead of abilify for next JOSHI, he will consider this (given prior positive response to clozapine and haldol combination) 04/05/2023: Continue with current medications and tx plan. 04/04/2023: Continue with current medications and tx plan. 04/03/2023: Continue with current medications and tx plan. 04/02/2023: Continue with current medications and tx plan. 04/01/2023: Continue with current medications and tx plan. 03/31/2023: diversion meeting completed. next lab draw 04/03/23. 03/25/2023: tolerating consolidation of clozaril to hs. 03/24/2023: Continue with current medications and tx plan. 03/23/2023: Continue with current medications and tx plan. 03/22/2023: Clozapine 350mg HS, continue other current medications 03/21/2023: Consolidate clozapine to 350mg HS starting tomorrow. 03/20/2023: Continue current medications and tx plan. 03/19/2023: Continue current medications and tx plan. CBC with ANC tomorrow. 03/18/2023: Continue current medications and tx plan. Will plan to consider augmentation with haldol once abilify JOSHI effects have waned over the next few weeks. 03/17/2023: * continue LiCO3 600 mg QAM & 900 mg QHS, anticipate consolidating to 1500 mg QHS starting tomorrow * continue clozapine 100 mg QAM & 250 mg QHS, consider consolidating to 350 mg QHS * discontinue aripiprazole lauroxil 400 mg IM monthly, last given 10 March 2023 (so will remain at significant level for several more weeks) * anticipate adding haloperidol, but at this point that would constitute 3 concurrent antipsychotics 03/16/2023: * continue LiCO3 600 mg QAM & 900 mg QHS, consider consolidating to 1500 mg QHS * recheck lithium level tomorrow * continue clozapine 100 mg QAM & 250 mg QHS, consider consolidating to 350 mg QHS * discontinue aripiprazole lauroxil 400 mg IM monthly, last given 10 March 2023 * anticipate adding haloperidol, but at this point that would constitute 3 concurrent antipsychotics * [place] form 785 [place] 304(c) "involuntary" treatment at the [facility] 03/15/2023: * continue LiCO3 600 mg QAM & 900 mg QHS, consider consolidating to 1500 mg QHS * recheck lithium level in 2 days * continue clozapine 100 mg QAM & 250 mg QHS, consider consolidating to 350 mg QHS * discontinue aripiprazole lauroxil 400 mg IM monthly, last given 10 March 2023 * discontinue aripiprazole 5 mg daily 03/14/2023: The patient was admitted to the [facility] ([facility] mental health unit) on q15 min checks (behavioral with suicide precautions) for safety. The patient will participate in group, recreational, and milieu therapies and will be offered additional individual and family sessions as clinically appropriate. Pt was recently started on aripiprazole lauroxil. Since his record indicates a failed trial of oral aripiprazole in the past, I will be circumspect about discontinuing clozapine at this time. * continue LiCO3 600 mg QAM & 900 mg QHS * continue clozapine 100 mg QAM & 250 mg QHS for the time being * continue aripiprazole lauroxil 400 mg IM monthly, next due 09 April 2023 * continue aripiprazole 5 mg daily Inventory Assets Strengths: voluntary, intelligent Needs: safety and stabilization, medication adjustment Suicide Risk Level Suicide Risk Level: Moderate (q15 min suicide checks) (SI with depression prior to admission but has been consistently denying SI since admission, responds to internal stimuli but engages easily, feels safe here and agrees to let nursing know if he requires additional support or feels unable to remain safe) Suicide Risk Level Comments: has chronic suicidal thoughts on which he's never acted Risk Factors Assessment Male: Yes : Yes Do You Have Access To A Gun?: No Health Problems: No Mental Health Diagnoses: Yes Substance Use Disorders: No Previous Attempt: No Family History of Suicide: No Previous Psychiatric Hospitalization: Yes Hopelessness: No Protective Factors Assessment Employed: No Good Rapport with Provider: Yes Interval History Identifying Information NASEEM MCGEE is a 27-year-old M who currently lives in [facility], has a history of Schizoaffective Disorder, Bipolar Type, and was admitted on 03/13/23 14:14 on a 201 voluntary commitment for susanne. He was committed under part 304(c) on 03/17/2023. Chief Complaint "I'm fine". Review of Systems Sleep Information Total Hours of Sleep: 6 Sleep Comments: Meal Information Percent Meal Consumed - Breakfast: 50 Percent Meal Consumed - Lunch: 100 Percent Meal Consumed - Dinner: 100 Nutrition Comment: Subjective Subjective Patient was seen & assessed and interval progress reviewed with treatment team nursing and social work. Continues to spend most of the day pacing in the [place] listening to music. Appears internally preoccupied at times. Denies any medication side effects. Reports stable mood. Physical Exam Psychiatric Orientation: alert, oriented to person, oriented to place, oriented to time and cooperative Apperance: appropriately dressed and appropriately groomed Eye Contact: + fair eye contact Motor Behavior: + psychomotor agitation (walking most of the day) Speech: normal rate/rhythm/volume of speech (but non spontaneous) Affect: + constricted affect Mood: no depressed mood and no anxious mood Thought Process: + tangential thought process Thought Content: reality based without delusions Suicidal Thoughts: denies suicidal plan (for years has spoken of jumping into traffic; denies while here) and denies suicidal intent; + reports suicidal thoughts (chronic, intermittent thoughts that he doesn't find compelling) Homicidal Thoughts: denies homicidal thoughts Hallucinations: + auditory hallucinations (responds throughout the day); no visual hallucinations and no tactile hallucinations Cognition: recent memory grossly intact, remote memory grossly intact, attention grossly intact and language grossly intact Estimated Intelligence: average estimated intelligence and consistent with education level Insight: + fair insight Judgment: + limited judgement Vital Signs (Past 24 Hours) Last Vital Signs Temp 37.1 C 04/15/23 06:00 Pulse 61 04/15/23 06:00 Resp 18 04/15/23 06:00 BP 118/68 04/15/23 06:49 Pulse Ox 98 04/15/23 06:00 O2 Del Method Room Air 04/15/23 06:00 Results & Data ([facility]) Current Inpatient Medications Current Inpatient Medications: Current Inpatient Medications Clozapine (Clozapine 25 Mg Tab) 50 mg PO HS VIVIAN Stop: 04/21/23 21:59 Last Admin: 04/14/23 21:40 Dose: 50 mg Clozapine (Clozapine 100 Mg Tab) 300 mg PO HS VIVIAN Stop: 04/21/23 21:59 Last Admin: 04/14/23 21:40 Dose: 300 mg Haloperidol Decanoate (Haloperidol Decanoate Inj 50 Mg/Ml Vial) 25 mg IM Q28D VIVIAN Stop: 05/08/23 17:29 Last Admin: 04/08/23 18:38 Dose: 25 mg [place] Carbonate ([place] Carbonate Slow Rel 300 Mg Tab) 1,500 mg PO HS VIVIAN Stop: 05/10/23 21:59 Last Admin: 04/14/23 21:40 Dose: 1,500 mg Mental Health & Subst Abuse Tx Psychiatrist Name of Psychiatrist: Kody Rogers Psychiatrist's Time of Appointment with Psychiatrist: Please follow-up as needed. Psychiatric Appointment Comment: [address] [place] [address] Therapist Name of Therapist: Cheko England - Marilou Therapist's Therapy Appointment Comment: [address], [address], [place] [address] Spiral Binder Name of Spiral Binder: [facility] Phone Number for Spiral Binder: [phone] Case Management Appointment Comment: Please resume your normal schedule. Post Discharge Appointments Primary Care Physician Name Of Family Doctor/PCP: Kody Dunn Primary [facility] Time of Appointment with PCP: Please follow-up as needed. Provider Appointment Comment: [address] [place] [address] Special Crimes Investigator Name of Special Crimes Investigator: [facility] Peer Phone Number of Special Crimes Investigator: [phone] Special Crimes Investigator Appointment Comment: Please resume your normal schedule. Contact Information Discharge Discharge Address: [address] [place] [id number]
[2023-04-15] MEDS: cloZAPine 25 MG TAB PO SCH (21:40)
[2023-04-15] MEDS: cloZAPine 100 MG TAB PO SCH (21:40)
[2023-04-15] MEDS: LITHIUM CARBONATE SLOW REL 300 MG TAB PO SCH (21:41)
--- NOTE | 2023-04-16 09:51 | Psychiatric Progress Note ---
Date of Service April 16, 2023 Impression / Recommendations Impression 27 y/o M resident of personal half-way with exacerbation Schizoaffective Disorder, Bipolar Type due to not taking medications and [place] concerns for possible suicide attempt given recent SI with plans of walking into traffic. He is now on a 304 commitment and is unable to return to his personal half-way. [facility] referral in progress, the [facility] is currently reviewing. No other safe disposition options at this time. Referral in process with [facility] for possible CRR intensive community bed. [facility]PR due to hx psychosis with intermittent auditory hallucinations, guarded around peers, cannot tolerate a roommate 04/16/2023: Stable mood though appears slightly more flat today but reports euthymic mood. Still responding to internal stimuli. Discussed management of his fiances as his mother has reached out to about becoming a support to manage this, Taz states interest in having her help with this. Remains unable to be safely discharged. (1) Schizoaffective disorder, bipolar type: Plan 04/16/2023: Continue current medications and tx plan. 04/15/2023: Continue current medications and tx plan. 04/14/2023: (no change in plan) * continue lithium 1,500 mg QHS * continue clozapine 350 mg QHS * continue haloperidol decanoate 25 mg IM Q4 Wk; most recent dose * continue work towards identifying appropriate outpatient/residential placement 04/13/2023: (no change in plan) * continue lithium 1,500 mg QHS * continue clozapine 350 mg QHS * continue haloperidol decanoate 25 mg IM Q4 Wk; most recent dose * continue work towards identifying appropriate outpatient/residential placement 04/12/2023: (no change in plan) * continue lithium 1,500 mg QHS * continue clozapine 350 mg QHS * continue haloperidol decanoate 25 mg IM Q4 Wk; most recent dose * continue work towards identifying appropriate outpatient/residential placement 04/11/2023: (no change in plan) * continue lithium 1,500 mg QHS * continue clozapine 350 mg QHS * continue haloperidol decanoate 25 mg IM Q4 Wk; most recent dose * has no safe placement available but otherwise appropriate for discharge 04/10/2023: * consolidate lithium to 1,500 mg QHS * continue clozapine 350 mg QHS * continue haloperidol decanoate 25 mg IM Q4 Wk; most recent dose * has no safe placement available 04/09/2023: (no change in plan) * continue lithium 600 mg QAM & 900 mg QHS - most recent level 1.0 mmol/L on 03/17/2023; consider consolidation to 1,500 mg QHS * continue clozapine 350 mg QHS * continue haloperidol decanoate 25 mg IM Q4 Wk; most recent dose * has no safe placement available 04/08/2023: * discontinue aripiprazole lauroxil (next dose due tomorrow) * start haloperidol decanoate 25 mg IM Q4 Wk * Continue clozapine 350 mg QHS * Continue lithium 600 mg QAM & 900 mg QHS - most recent level 1.0 mmol/L on 03/17/2023; consider consolidation to 1,500 mg QHS * At this point scant need for [facility] seen, yet has no place to go 04/07/2023: Continue current medications and tx plan. 04/06/2023: Discussed option to consider haldol if interested instead of abilify for next JOSHI, he will consider this (given prior positive response to clozapine and haldol combination) 04/05/2023: Continue with current medications and tx plan. 04/04/2023: Continue with current medications and tx plan. 04/03/2023: Continue with current medications and tx plan. 04/02/2023: Continue with current medications and tx plan. 04/01/2023: Continue with current medications and tx plan. 03/31/2023: diversion meeting completed. next lab draw 04/03/23. 03/25/2023: tolerating consolidation of clozaril to hs. 03/24/2023: Continue with current medications and tx plan. 03/23/2023: Continue with current medications and tx plan. 03/22/2023: Clozapine 350mg HS, continue other current medications 03/21/2023: Consolidate clozapine to 350mg HS starting tomorrow. 03/20/2023: Continue current medications and tx plan. 03/19/2023: Continue current medications and tx plan. CBC with ANC tomorrow. 03/18/2023: Continue current medications and tx plan. Will plan to consider augmentation with haldol once abilify JOSHI effects have waned over the next few weeks. 03/17/2023: * continue LiCO3 600 mg QAM & 900 mg QHS, anticipate consolidating to 1500 mg QHS starting tomorrow * continue clozapine 100 mg QAM & 250 mg QHS, consider consolidating to 350 mg QHS * discontinue aripiprazole lauroxil 400 mg IM monthly, last given 10 March 2023 (so will remain at significant level for several more weeks) * anticipate adding haloperidol, but at this point that would constitute 3 concurrent antipsychotics 03/16/2023: * continue LiCO3 600 mg QAM & 900 mg QHS, consider consolidating to 1500 mg QHS * recheck lithium level tomorrow * continue clozapine 100 mg QAM & 250 mg QHS, consider consolidating to 350 mg QHS * discontinue aripiprazole lauroxil 400 mg IM monthly, last given 10 March 2023 * anticipate adding haloperidol, but at this point that would constitute 3 concurrent antipsychotics * [place] form 785 [place] part 304(c) "involuntary" treatment at the [facility] 03/15/2023: * continue LiCO3 600 mg QAM & 900 mg QHS, consider consolidating to 1500 mg QHS * recheck lithium level in 2 days * continue clozapine 100 mg QAM & 250 mg QHS, consider consolidating to 350 mg QHS * discontinue aripiprazole lauroxil 400 mg IM monthly, last given 10 March 2023 * discontinue aripiprazole 5 mg daily 03/14/2023: The patient was admitted to the [facility] ([facility] inpatient mental health unit) on q15 min checks (behavioral with suicide precautions) for safety. The patient will participate in group, recreational, and milieu therapies and will be offered additional individual and family sessions as clinically appropriate. Pt was recently started on aripiprazole lauroxil. Since his record indicates a failed trial of oral aripiprazole in the past, I will be circumspect about discontinuing clozapine at this time. * continue LiCO3 600 mg QAM & 900 mg QHS * continue clozapine 100 mg QAM & 250 mg QHS for the time being * continue aripiprazole lauroxil 400 mg IM monthly, next due 09 April 2023 * continue aripiprazole 5 mg daily Inventory Assets Strengths: voluntary, intelligent Needs: safety and stabilization, medication adjustment Suicide Risk Level Suicide Risk Level: Moderate (q15 min suicide checks) (SI with depression prior to admission but has been consistently denying SI since admission, responds to internal stimuli but engages easily, feels safe here and agrees to let nursing know if he requires additional support or feels unable to remain safe) Risk Factors Assessment Male: Yes : Yes Do You Have Access To A Gun?: No Health Problems: No Mental Health Diagnoses: Yes Substance Use Disorders: No Previous Attempt: No Family History of Suicide: No Previous Psychiatric Hospitalization: Yes Hopelessness: No Protective Factors Assessment Employed: No Good Rapport with Provider: Yes Interval History Identifying Information NASEEM MCGEE is a 27-year-old M who currently lives in [facility], has a history of Schizoaffective Disorder, Bipolar Type, and was admitted on 03/13/23 14:14 on a 201 voluntary commitment for susanne. He was committed under part 304(c) on 03/17/2023. Chief Complaint "I'm good". Review of Systems Sleep Information Total Hours of Sleep: 6 Meal Information Percent Meal Consumed - Breakfast: 0 Percent Meal Consumed - Lunch: 100 Percent Meal Consumed - Dinner: 100 Nutrition Comment: Subjective Subjective Patient was seen & assessed and interval progress reviewed with treatment team nursing and social work. Attended community meeting last night. States his mood is good. Discussed his feelings about how he manages his money as his mother as wondered about becoming his rep payee. He states he does struggle with managing his money but cannot provide details. States he doesn't really spend any money prefers to save it. Asked if he would want his mother to become a rep payee to help manage his fiances he reports "yes I think that would be best" and states preference of having his mother do this versus county appointed individual. When asked feels his mother would be trustworthy with his funds and would allow him access to buy things of necessity if he talked with her. Physical Exam Psychiatric Orientation: alert, oriented to person, oriented to place, oriented to time and cooperative Apperance: appropriately dressed and appropriately groomed Eye Contact: + fair eye contact Motor Behavior: + psychomotor agitation (walking most of the day) Speech: normal rate/rhythm/volume of speech (but non spontaneous) Affect: + constricted affect Mood: no depressed mood and no anxious mood Thought Process: + tangential thought process Thought Content: reality based without delusions Suicidal Thoughts: denies suicidal plan (for years has spoken of jumping into traffic; denies while here) and denies suicidal intent; + reports suicidal thoughts (chronic, intermittent thoughts that he doesn't find compelling) Homicidal Thoughts: denies homicidal thoughts Hallucinations: + auditory hallucinations (responds throughout the day); no visual hallucinations and no tactile hallucinations Cognition: recent memory grossly intact, remote memory grossly intact, attention grossly intact and language grossly intact Estimated Intelligence: average estimated intelligence and consistent with education level Insight: + fair insight Judgment: + limited judgement Vital Signs (Past 24 Hours) Last Vital Signs Temp 36.4 C L 04/16/23 06:00 Pulse 60 04/16/23 06:00 Resp 18 04/16/23 06:00 BP 104/68 04/16/23 06:48 Pulse Ox 99 04/16/23 06:00 O2 Del Method Room Air 04/16/23 06:00 Results & Data ([facility]) Current Inpatient Medications Current Inpatient Medications: Current Inpatient Medications Clozapine (Clozapine 25 Mg Tab) 50 mg PO VIVIAN Stop: 04/21/23 21:59 Last Admin: 04/15/23 21:40 Dose: 50 mg Clozapine (Clozapine 100 Mg Tab) 300 mg PO VIVIAN Stop: 04/21/23 21:59 Last Admin: 04/15/23 21:40 Dose: 300 mg Haloperidol Decanoate (Haloperidol Decanoate Inj 50 Mg/Ml Vial) 25 mg IM Q28D VIVIAN Stop: 05/08/23 17:29 Last Admin: 04/08/23 18:38 Dose: 25 mg [place] Carbonate ([place] Carbonate Slow Rel 300 Mg Tab) 1,500 mg PO VIVIAN Stop: 05/10/23 21:59 Last Admin: 04/15/23 21:41 Dose: 1,500 mg Mental Health & Subst Abuse Tx Psychiatrist Name of Psychiatrist: Kody Rogers Psychiatrist's Time of Appointment with Psychiatrist: Please follow-up as needed. Psychiatric Appointment Comment: [address] [place] [address] Therapist Name of Therapist: Cheko Zamarripa Therapist's Therapy Appointment Comment: [address], [address], [place] [address] Shook Machine Operator Name of Shook Machine Operator: [facility] Lisseth Rose Phone Number for Shook Machine Operator: [phone] Case Management Appointment Comment: Please resume your normal schedule. Post Discharge Appointments Primary Care Physician Name Of Family Doctor/PCP: Kody Dunn Primary [facility] Time of Appointment with PCP: Please follow-up as needed. Provider Appointment Comment: [address] [place] [address] Director Of Email Marketing Name of Director Of Email Marketing: [place] [facility] Peer Phone Number of Director Of Email Marketing: [phone] Director Of Email Marketing Appointment Comment: Please resume your normal schedule. Contact Information Discharge Discharge Address: [address] [place] [id number]
[2023-04-16] MEDS: LITHIUM CARBONATE SLOW REL 300 MG TAB PO SCH (21:59)
[2023-04-16] MEDS: cloZAPine 25 MG TAB PO SCH (22:00)
[2023-04-16] MEDS: cloZAPine 100 MG TAB PO SCH (22:00)
[2023-04-17 07:45] LABS: Basophils # (auto) 0.08 K/uL (0-0.2); Basophils % (auto) 0.5 %; Eosinophils # (auto) 0.34 K/uL (0-0.50); Hematocrit (blood only) 47.9 % (42.0-52.0); Hemoglobin 15.8 g/dl (14.0-18.0); Immature Granulocytes # (auto) 0.09 K/uL (0.01-0.20); Immature Granulocytes % (auto) 0.5 %; Lymphocytes # (auto) 1.81 K/uL (1.2-3.4); Lymphocytes % (auto) 10.5 %; Mean Corpuscular Hemoglobin 27.5 pg (25.0-34.0); Mean Corpuscular Volume 83.3 fL (80.0-100.0); Mean Platelet Volume 10.3 fL (9.4-12.4); Monocytes # (auto) 1.22 K/uL (0.11-0.59); Monocytes % (auto) 7.1 %; Neutrophils # (auto) 13.63 K/uL (1.40-6.50); Neutrophils % (auto) 79.4 %; Platelet Count 328 K/uL (130-400); RDW Coefficient of Variation 13.2 % (11.5-14.5); Red Blood Count 5.75 M/uL (4.70-6.10); White Blood Count 17.17 K/ul (4.8-10.8)
--- NOTE | 2023-04-17 11:54 | Psychiatric Progress Note ---
Date of Service April 17, 2023 Impression / Recommendations Impression 27 y/o M resident of personal senior living with exacerbation Schizoaffective Disorder, Bipolar Type due to not taking medications [place] concerns for possible suicide attempt given recent SI with plans of walking into traffic. He is now on a 304 commitment and is unable to return to his personal senior living. [facility] referral in progress, the [facility] is currently reviewing. No other safe disposition options at this time. Referral in process with [facility] for possible [facility] intensive community bed. MNPR due to hx psychosis with intermittent auditory hallucinations, guarded around peers, cannot tolerate a roommate 04/17/2023: Stable mood , continues to respond to internal stimuli throughout the day when he is alone. Labwork reviewed and ANC stable for ongoing clozapine use. WBC uptrending but he denies any signs of infection, vital signs remain stable. Elevated WBC likely a response to clozapine use as leukocytosis can occur and persist in those on clozapine. (1) Schizoaffective disorder, bipolar type: Plan 04/17/2023: Continue with current medications and tx plan. ANC stable. 04/16/2023: Continue current medications and tx plan. 04/15/2023: Continue current medications and tx plan. 04/14/2023: (no change in plan) * continue lithium 1,500 mg QHS * continue clozapine 350 mg QHS * continue haloperidol decanoate 25 mg IM Q4 Wk; most recent dose * continue work towards identifying appropriate outpatient/residential placement 04/13/2023: (no change in plan) * continue lithium 1,500 mg QHS * continue clozapine 350 mg QHS * continue haloperidol decanoate 25 mg IM Q4 Wk; most recent dose * continue work towards identifying appropriate outpatient/residential placement 04/12/2023: (no change in plan) * continue lithium 1,500 mg QHS * continue clozapine 350 mg QHS * continue haloperidol decanoate 25 mg IM Q4 Wk; most recent dose * continue work towards identifying appropriate outpatient/residential placement 04/11/2023: (no change in plan) * continue lithium 1,500 mg QHS * continue clozapine 350 mg QHS * continue haloperidol decanoate 25 mg IM Q4 Wk; most recent dose * has no safe placement available but otherwise appropriate for discharge 04/10/2023: * consolidate lithium to 1,500 mg QHS * continue clozapine 350 mg QHS * continue haloperidol decanoate 25 mg IM Q4 Wk; most recent dose * has no safe placement available 04/09/2023: (no change in plan) * continue lithium 600 mg QAM & 900 mg QHS - most recent level 1.0 mmol/L on 03/17/2023; consider consolidation to 1,500 mg QHS * continue clozapine 350 mg QHS * continue haloperidol decanoate 25 mg IM Q4 Wk; most recent dose * has no safe placement available 04/08/2023: * discontinue aripiprazole lauroxil (next dose due tomorrow) * start haloperidol decanoate 25 mg IM Q4 Wk * Continue clozapine 350 mg QHS * Continue lithium 600 mg QAM & 900 mg QHS - most recent level 1.0 mmol/L on 03/17/2023; consider consolidation to 1,500 mg QHS * At this point scant need for [facility] seen, yet has no place to go 04/07/2023: Continue current medications and tx plan. 04/06/2023: Discussed option to consider haldol if interested instead of abilify for next JOSHI, he will consider this (given prior positive response to clozapine and haldol combination) 04/05/2023: Continue with current medications and tx plan. 04/04/2023: Continue with current medications and tx plan. 04/03/2023: Continue with current medications and tx plan. 04/02/2023: Continue with current medications and tx plan. 04/01/2023: Continue with current medications and tx plan. 03/31/2023: diversion meeting completed. next lab draw 04/03/23. 03/25/2023: tolerating consolidation of clozaril to hs. 03/24/2023: Continue with current medications and tx plan. 03/23/2023: Continue with current medications and tx plan. 03/22/2023: Clozapine 350mg HS, continue other current medications 03/21/2023: Consolidate clozapine to 350mg HS starting tomorrow. 03/20/2023: Continue current medications and tx plan. 03/19/2023: Continue current medications and tx plan. CBC with ANC tomorrow. 03/18/2023: Continue current medications and tx plan. Will plan to consider augmentation with haldol once abilify JOSHI effects have waned over the next few weeks. 03/17/2023: * continue LiCO3 600 mg QAM & 900 mg QHS, anticipate consolidating to 1500 mg QHS starting tomorrow * continue clozapine 100 mg QAM & 250 mg QHS, consider consolidating to 350 mg QHS * discontinue aripiprazole lauroxil 400 mg IM monthly, last given 10 March 2023 ( so will remain at significant level for several more weeks) * anticipate adding haloperidol, but at this point that would constitute 3 concurrent antipsychotics 03/16/2023: * continue LiCO3 600 mg QAM & 900 mg QHS, consider consolidating to 1500 mg QHS * recheck lithium level tomorrow * continue clozapine 100 mg QAM & 250 mg QHS, consider consolidating to 350 mg QHS * discontinue aripiprazole lauroxil 400 mg IM monthly, last given 10 March 2023 * anticipate adding haloperidol, but at this point that would constitute 3 concurrent antipsychotics * [place] 785 [place] 304(c) "involuntary" treatment at the [facility] 03/15/2023: * continue LiCO3 600 mg QAM & 900 mg QHS, consider consolidating to 1500 mg QHS * recheck lithium level in 2 days * continue clozapine 100 mg QAM & 250 mg QHS, consider consolidating to 350 mg QHS * discontinue aripiprazole lauroxil 400 mg IM monthly, last given 10 March 2023 * discontinue aripiprazole 5 mg daily 03/14/2023: The patient was admitted to the [facility] ([facility]) on q15 min checks (behavioral with suicide precautions) for safety. The patient will participate in group, recreational, and milieu therapies and will be offered additional individual and family sessions as clinically appropriate. Pt was recently started on aripiprazole lauroxil. Since his record indicates a failed trial of oral aripiprazole in the past, I will be circumspect about discontinuing clozapine at this time. * continue LiCO3 600 mg QAM & 900 mg QHS * continue clozapine 100 mg QAM & 250 mg QHS for the time being * continue aripiprazole lauroxil 400 mg IM monthly, next due 09 April 2023 * continue aripiprazole 5 mg daily Inventory Assets Strengths: voluntary, intelligent Needs: safety and stabilization, medication adjustment Suicide Risk Level Suicide Risk Level: Moderate (q15 min suicide checks) (SI with depression prior to admission but has been consistently denying SI since admission, responds to internal stimuli but engages easily, feels safe here and agrees to let nursing know if he requires additional support or feels unable to remain safe) Risk Factors Assessment Male: Yes : Yes Do You Have Access To A Gun?: No Health Problems: No Mental Health Diagnoses: Yes Substance Use Disorders: No Previous Attempt: No Family History of Suicide: No Previous Psychiatric Hospitalization: Yes Hopelessness: No Protective Factors Assessment Employed: No Good Rapport with Provider: Yes Interval History Identifying Information NASEEM MCGEE is a 27-year-old M who currently lives in [facility], has a history of Schizoaffective Disorder, Bipolar Type, and was admitted on 03/13/23 14:14 on a 201 voluntary commitment for susanne. He was committed under part 304(c) on 03/17/2023. Chief Complaint "I'm good". Review of Systems Sleep Information Total Hours of Sleep: 7.25 Meal Information Percent Meal Consumed - Breakfast: 0 Percent Meal Consumed - Lunch: 100 Percent Meal Consumed - Dinner: 100 Nutrition Comment: Subjective Subjective Patient was seen & assessed and interval progress reviewed with treatment team nursing and social work. Went outside with counselor and recreation therapist this morning and enjoyed walking around. States his mood is "good". Denies any medication issues. Remains agreeable with having his mother become his rep payee/help manage his fiances. Physical Exam Psychiatric Orientation: alert, oriented to person, oriented to place, oriented to time and cooperative Apperance: appropriately dressed and appropriately groomed Eye Contact: + fair eye contact Motor Behavior: + psychomotor agitation (walking most of the day) Speech: normal rate/rhythm/volume of speech (but non spontaneous) Affect: + constricted affect Mood: no depressed mood and no anxious mood Thought Process: + tangential thought process Thought Content: reality based without delusions Suicidal Thoughts: denies suicidal plan (for years has spoken of jumping into traffic; denies while here) and denies suicidal intent; + reports suicidal thoughts (chronic, intermittent thoughts that he doesn't find compelling) Homicidal Thoughts: denies homicidal thoughts Hallucinations: + auditory hallucinations (responds throughout the day); no visual hallucinations and no tactile hallucinations Cognition: recent memory grossly intact, remote memory grossly intact, attention grossly intact and language grossly intact Estimated Intelligence: average estimated intelligence and consistent with educa tion level Insight: + fair insight Judgment: + limited judgement Vital Signs (Past 24 Hours) Last Vital Signs Temp 36.7 C 04/17/23 06:44 Pulse 97 H 04/17/23 06:45 Resp 16 04/17/23 06:44 BP 106/66 04/17/23 06:45 Pulse Ox 99 04/16/23 06:00 O2 Del Method Room Air 04/16/23 06:00 Results & Data ([facility]) Laboratory Results Laboratory Results - last 24 hr 04/17/23 07:15 WBC 17.17 H RBC 5.75 Hgb 15.8 Hct 47.9 MCV 83.3 MCH 27.5 MCHC 33.0 RDW Std Deviation 40.0 RDW Coeff of Belén 13.2 Plt Count 328 MPV 10.3 Immature Gran % (Auto) 0.5 Neut % (Auto) 79.4 Lymph % (Auto) 10.5 [place] % (Auto) 7.1 Eos % (Auto) 2.0 Baso % (Auto) 0.5 Neut # (Auto) 13.63 H Lymph # (Auto) 1.81 [place] # (Auto) 1.22 H Eos # (Auto) 0.34 Baso # (Auto) 0.08 Immature Gran # (Auto) 0.09 Current Inpatient Medications Current Inpatient Medications: Current Inpatient Medications Clozapine (Clozapine 25 Mg Tab) 50 mg PO VIVIAN Stop: 04/21/23 21:59 Last Admin: 04/16/23 22:00 Dose: 50 mg Clozapine (Clozapine 100 Mg Tab) 300 mg PO HS VIVIAN Stop: 04/21/23 21:59 Last Admin: 04/16/23 22:00 Dose: 300 mg Haloperidol Decanoate (Haloperidol Decanoate Inj 50 Mg/Ml Vial) 25 mg IM Q28D VIVIAN Stop: 05/08/23 17:29 Last Admin: 04/08/23 18:38 Dose: 25 mg [place] Carbonate ([place] Carbonate Slow Rel 300 Mg Tab) 1,500 mg PO HS VIVIAN Stop: 05/10/23 21:59 Last Admin: 04/16/23 21:59 Dose: 1,500 mg Mental Health & Subst Abuse Tx Psychiatrist Name of Psychiatrist: Kody Rogers Psychiatrist's Time of Appointment with Psychiatrist: Please follow-up as needed. Psychiatric Appointment Comment: [address] [place] [address] Therapist Name of Therapist: [facility] Therapist's Therapy Appointment Comment: [address], [facility] [address], [place] [address] Community Health Program Representative Name of Community Health Program Representative: [facility] Rose Phone Number for Community Health Program Representative: [phone] Case Management Appointment Comment: Please resume your normal schedule. Post Discharge Appointments Primary Care Physician Name Of Family Doctor/PCP: [facility] Time of Appointment with PCP: Please follow-up as needed. Provider Appointment Comment: [address] [place] [address] Senior Php Developer Name of Senior Php Developer: [facility] Peer Phone Number of Senior Php Developer: [phone] Senior Php Developer Appointment Comment: Please resume your normal schedule. Contact Information Discharge Discharge Address: [address] [id number]
[2023-04-17] MEDS: cloZAPine 100 MG TAB PO SCH (21:13)
[2023-04-17] MEDS: cloZAPine 25 MG TAB PO SCH (21:13)
[2023-04-17] MEDS: LITHIUM CARBONATE SLOW REL 300 MG TAB PO SCH (21:14)
--- NOTE | 2023-04-18 10:11 | Psychiatric Progress Note ---
Date of Service April 18, 2023 Impression / Recommendations Impression 27 y/o M resident of personal retirement with exacerbation Schizoaffective Disorder, Bipolar Type due to not taking medications [place] concerns for possible suicide attempt given recent SI with plans of walking into traffic. He is now on a 304 commitment and is unable to return to his personal retirement. [facility] referral in progress, the [facility] is currently reviewing. No other safe disposition options at this time. Referral in process with [facility] for possible CRR intensive community bed. MNPR due to hx psychosis with intermittent auditory hallucinations, guarded around peers, cannot tolerate a roommate 04/18/2023: Stable mood, continues to respond to internal stimuli throughout the day when he is alone. Remains unable to be safely discharged. (1) Schizoaffective disorder, bipolar type: Plan 04/18/2023: Continue current medications and tx plan. 04/17/2023: Continue with current medications and tx plan. ANC stable. 04/16/2023: Continue current medications and tx plan. 04/15/2023: Continue current medications and tx plan. 04/14/2023: (no change in plan) * continue lithium 1,500 mg QHS * continue clozapine 350 mg QHS * continue haloperidol decanoate 25 mg IM Q4 Wk; most recent dose * continue work towards identifying appropriate outpatient/residential placement 04/13/2023: (no change in plan) * continue lithium 1,500 mg QHS * continue clozapine 350 mg QHS * continue haloperidol decanoate 25 mg IM Q4 Wk; most recent dose * continue work towards identifying appropriate outpatient/residential placement 04/12/2023: (no change in plan) * continue lithium 1,500 mg QHS * continue clozapine 350 mg QHS * continue haloperidol decanoate 25 mg IM Q4 Wk; most recent dose * continue work towards identifying appropriate outpatient/residential placement 04/11/2023: (no change in plan) * continue lithium 1,500 mg QHS * continue clozapine 350 mg QHS * continue haloperidol decanoate 25 mg IM Q4 Wk; most recent dose * has no safe placement available but otherwise appropriate for discharge 04/10/2023: * consolidate lithium to 1,500 mg QHS * continue clozapine 350 mg QHS * continue haloperidol decanoate 25 mg IM Q4 Wk; most recent dose * has no safe placement available 04/09/2023: (no change in plan) * continue lithium 600 mg QAM & 900 mg QHS - most recent level 1.0 mmol/L on 03/17/2023; consider consolidation to 1,500 mg QHS * continue clozapine 350 mg QHS * continue haloperidol decanoate 25 mg IM Q4 Wk; most recent dose * has no safe placement available 04/08/2023: * discontinue aripiprazole lauroxil (next dose due tomorrow) * start haloperidol decanoate 25 mg IM Q4 Wk * Continue clozapine 350 mg QHS * Continue lithium 600 mg QAM & 900 mg QHS - most recent level 1.0 mmol/L on 03/17/2023; consider consolidation to 1,500 mg QHS * At this point scant need for [facility] seen, yet has no place to go 04/07/2023: Continue current medications and tx plan. 04/06/2023: Discussed option to consider haldol if interested instead of abilify for next JOSHI, he will consider this (given prior positive response to clozapine and haldol combination) 04/05/2023: Continue with current medications and tx plan. 04/04/2023: Continue with current medications and tx plan. 04/03/2023: Continue with current medications and tx plan. 04/02/2023: Continue with current medications and tx plan. 04/01/2023: Continue with current medications and tx plan. 03/31/2023: diversion meeting completed. next lab draw 04/03/23. 03/25/2023: tolerating consolidation of clozaril to hs. 03/24/2023: Continue with current medications and tx plan. 03/23/2023: Continue with current medications and tx plan. 03/22/2023: Clozapine 350mg HS, continue other current medications 03/21/2023: Consolidate clozapine to 350mg HS starting tomorrow. 03/20/2023: Continue current medications and tx plan. 03/19/2023: Continue current medications and tx plan. CBC with ANC tomorrow. 03/18/2023: Continue current medications and tx plan. Will plan to consider augmentation with haldol once abilify JOSHI effects have waned over the next few weeks. 03/17/2023: * continue LiCO3 600 mg QAM & 900 mg QHS, anticipate consolidating to 1500 mg QHS starting tomorrow * continue clozapine 100 mg QAM & 250 mg QHS, consider consolidating to 350 mg QHS * discontinue aripiprazole lauroxil 400 mg IM monthly, last given 10 March 2023 (so will remain at significant level for several more weeks) * anticipate adding haloperidol, but at this point that would constitute 3 concurrent antipsychotics 03/16/2023: * continue LiCO3 600 mg QAM & 900 mg QHS, consider consolidating to 1500 mg QHS * recheck lithium level tomorrow * continue clozapine 100 mg QAM & 250 mg QHS, consider consolidating to 350 mg QHS * discontinue aripiprazole lauroxil 400 mg IM monthly, last given 10 March 2023 * anticipate adding haloperidol, but at this point that would constitute 3 concurrent antipsychotics * [place] 785 [place] 304(c) "involuntary" treatment at the [facility] 03/15/2023: * continue LiCO3 600 mg QAM & 900 mg QHS, consider consolidating to 1500 mg QHS * recheck lithium level in 2 days * continue clozapine 100 mg QAM & 250 mg QHS, consider consolidating to 350 mg QHS * discontinue aripiprazole lauroxil 400 mg IM monthly, last given 10 March 2023 * discontinue aripiprazole 5 mg daily 03/14/2023: The patient was admitted to the [facility] on q15 min checks (behavioral with suicide precautions) for safety. The patient will participate in group, recreational, and milieu therapies and will be offered additional individual and family sessions as clinically appropriate. Pt was recently started on aripiprazole lauroxil. Since his record indicates a failed trial of oral aripiprazole in the past, I will be circumspect about discontinuing clozapine at this time. * continue LiCO3 600 mg QAM & 900 mg QHS * continue clozapine 100 mg QAM & 250 mg QHS for the time being * continue aripiprazole lauroxil 400 mg IM monthly, next due 09 April 2023 * continue aripiprazole 5 mg daily Inventory Assets Strengths: voluntary, intelligent Needs: safety and stabilization, medication adjustment Suicide Risk Level Suicide Risk Level: Moderate (q15 min suicide checks) (SI with depression prior to admission but has been consistently denying SI since admission, responds to internal stimuli but engages easily, feels safe here and agrees to let nursing know if he requires additional support or feels unable to remain safe) Risk Factors Assessment Male: Yes : Yes Do You Have Access To A Gun?: No Health Problems: No Mental Health Diagnoses: Yes Substance Use Disorders: No Previous Attempt: No Family History of Suicide: No Previous Psychiatric Hospitalization: Yes Hopelessness: No Protective Factors Assessment Employed: No Good Rapport with Provider: Yes Interval History Identifying Information NASEEM MCGEE is a 27-year-old M who currently lives in [facility], has a history of Schizoaffective Disorder, Bipolar Type, and was admitted on 03/13/23 14:14 on a 201 voluntary commitment for susanne. He was committed under part 304(c) on 03/17/2023. Chief Complaint "I'm ok". Review of Systems Sleep Information Total Hours of Sleep: 6.5 Meal Information Percent Meal Consumed - Breakfast: 0 Percent Meal Consumed - Lunch: 100 Percent Meal Consumed - Dinner: 100 Subjective Subjective Patient was seen & assessed and interval progress reviewed with treatment team nursing and social work. Mostly isolative, walking in the halls all day with headphone on or responding to himself quietly. Denies any medication issues or physical complaints. States his mood is ok. Feels he is sleeping well. Physical Exam Psychiatric Orientation: alert, oriented to person, oriented to place, oriented to time and cooperative Apperance: appropriately dressed and appropriately groomed Eye Contact: + fair eye contact Motor Behavior: + psychomotor agitation (walking most of the day) Speech: normal rate/rhythm/volume of speech (but non spontaneous) Affect: + constricted affect Mood: no depressed mood and no anxious mood Thought Process: + tangential thought process Thought Content: reality based without delusions Suicidal Thoughts: denies suicidal plan (for years has spoken of jumping into traffic; denies while here) and denies suicidal intent; + reports suicidal thoughts (chronic, intermittent thoughts that he doesn't find compelling) Homicidal Thoughts: denies homicidal thoughts Hallucinations: + auditory hallucinations (responds throughout the day); no visual hallucinations and no tactile hallucinations Cognition: recent memory grossly intact, remote memory grossly intact, attention grossly intact and language grossly intact Estimated Intelligence: average estimated intelligence and consistent with education level Insight: + fair insight Judgment: + limited judgement Vital Signs (Past 24 Hours) Last Vital Signs Temp 36.8 C 04/18/23 06:51 Pulse 71 04/18/23 06:51 Resp 16 04/18/23 06:51 BP 107/74 04/18/23 06:51 Pulse Ox 99 04/16/23 06:00 O2 Del Method Room Air 04/16/23 06:00 Results & Data ([facility]) Current Inpatient Medications Current Inpatient Medications: Current Inpatient Medications Clozapine (Clozapine 25 Mg Tab) 50 mg PO VIVIAN Stop: 04/21/23 21:59 Last Admin: 04/17/23 21:13 Dose: 50 mg Clozapine (Clozapine 100 Mg Tab) 300 mg PO VIVIAN Stop: 04/21/23 21:59 Last Admin: 04/17/23 21:13 Dose: 300 mg Haloperidol Decanoate (Haloperidol Decanoate Inj 50 Mg/Ml Vial) 25 mg IM Q28D VIVIAN Stop: 05/08/23 17:29 Last Admin: 04/08/23 18:38 Dose: 25 mg [place] Carbonate ([place] Carbonate Slow Rel 300 Mg Tab) 1,500 mg PO HS VIVIAN Stop: 05/10/23 21:59 Last Admin: 04/17/23 21:14 Dose: 1,500 mg Mental Health & Subst Abuse Tx Psychiatrist Name of Psychiatrist: Kody Rogers Psychiatrist's Time of Appointment with Psychiatrist: Please follow-up as needed. Psychiatric Appointment Comment: [address] [place] [address] Therapist Name of Therapist: [facility] [place] Therapist's Therapy Appointment Comment: [address], [address], [place] [address] Agronomy Specialist Name of Agronomy Specialist: [facility] Lisseth Rose Phone Number for Agronomy Specialist: [phone] Case Management Appointment Comment: Please resume your normal schedule. Post Discharge Appointments Primary Care Physician Name Of Family Doctor/PCP: Kody Dunn Primary [facility] Time of Appointment with PCP: Please follow-up as needed. Provider Appointment Comment: [address] [place] [address] Kiln Car Unloader Name of Kiln Car Unloader: [facility] Peer Phone Number of Kiln Car Unloader: [phone] Kiln Car Unloader Appointment Comment: Please resume your normal schedule. Contact Information Discharge Discharge Address: [address] [place] [id number]
[2023-04-18] MEDS: cloZAPine 25 MG TAB PO SCH (21:08)
[2023-04-18] MEDS: cloZAPine 100 MG TAB PO SCH (21:08)
[2023-04-18] MEDS: LITHIUM CARBONATE SLOW REL 300 MG TAB PO SCH (21:08)
--- NOTE | 2023-04-19 20:01 | Psychiatric Progress Note ---
Date of Service April 19, 2023 Impression / Recommendations Impression 27 y/o M resident of personal senior care with exacerbation Schizoaffective Disorder, Bipolar Type due to not taking medications [place] concerns for possible suicide attempt given recent SI with plans of walking into traffic. He is now on a 304 commitment and is unable to return to his personal senior care. [facility] referral in progress, the [facility] is currently reviewing. No other safe disposition options at this time. Referral in process with [facility] for possible [facility] intensive community bed. [facility] due to hx psychosis with intermittent auditory hallucinations, guarded around peers, cannot tolerate a roommate 04/19/2023: Affect has been slightly more flat, could be due to prolonged hospitalization and boredom versus side effect from recent haldol dercanoate JOSHI. He denies any medication side effects and encouragingly was more talkative with recreation therapist during a walk outside mid-day. Continues to respond to internal stimuli throughout the day when he is alone. Remains unable to be safely discharged. (1) Schizoaffective disorder, bipolar type: Plan 04/19/2023: Continue current medications and tx plan. 04/18/2023: Continue current medications and tx plan. 04/17/2023: Continue with current medications and tx plan. ANC stable. 04/16/2023: Continue current medications and tx plan. 04/15/2023: Continue current medications and tx plan. 04/14/2023: (no change in plan) * continue lithium 1,500 mg QHS * continue clozapine 350 mg QHS * continue haloperidol decanoate 25 mg IM Q4 Wk; most recent dose * continue work towards identifying appropriate outpatient/residential placement 04/13/2023: (no change in plan) * continue lithium 1,500 mg QHS * continue clozapine 350 mg QHS * continue haloperidol decanoate 25 mg IM Q4 Wk; most recent dose * continue work towards identifying appropriate outpatient/residential placement 04/12/2023: (no change in plan) * continue lithium 1,500 mg QHS * continue clozapine 350 mg QHS * continue haloperidol decanoate 25 mg IM Q4 Wk; most recent dose * continue work towards identifying appropriate outpatient/residential placement 04/11/2023: (no change in plan) * continue lithium 1,500 mg QHS * continue clozapine 350 mg QHS * continue haloperidol decanoate 25 mg IM Q4 Wk; most recent dose * has no safe placement available but otherwise appropriate for discharge 04/10/2023: * consolidate lithium to 1,500 mg QHS * continue clozapine 350 mg QHS * continue haloperidol decanoate 25 mg IM Q4 Wk; most recent dose * has no safe placement available 04/09/2023: (no change in plan) * continue lithium 600 mg QAM & 900 mg QHS - most recent level 1.0 mmol/L on 03/17/2023; consider consolidation to 1,500 mg QHS * continue clozapine 350 mg QHS * continue haloperidol decanoate 25 mg IM Q4 Wk; most recent dose * has no safe placement available 04/08/2023: * discontinue aripiprazole lauroxil (next dose due tomorrow) * start haloperidol decanoate 25 mg IM Q4 Wk * Continue clozapine 350 mg QHS * Continue lithium 600 mg QAM & 900 mg QHS - most recent level 1.0 mmol/L on 03/17/2023; consider consolidation to 1,500 mg QHS * At this point scant need for [facility] seen, yet has no place to go 04/07/2023: Continue current medications and tx plan. 04/06/2023: Discussed option to consider haldol if interested instead of abilify for next JOSHI, he will consider this (given prior positive response to clozapine and haldol combination) 04/05/2023: Continue with current medications and tx plan. 04/04/2023: Continue with current medications and tx plan. 04/03/2023: Continue with current medications and tx plan. 04/02/2023: Continue with current medications and tx plan. 04/01/2023: Continue with current medications and tx plan. 03/31/2023: diversion meeting completed. next lab draw 04/03/23. 03/25/2023: tolerating consolidation of clozaril to hs. 03/24/2023: Continue with current medications and tx plan. 03/23/2023: Continue with current medications and tx plan. 03/22/2023: Clozapine 350mg HS, continue other current medications 03/21/2023: Consolidate clozapine to 350mg HS starting tomorrow. 03/20/2023: Continue current medications and tx plan. 03/19/2023: Continue current medications and tx plan. CBC with ANC tomorrow. 03/18/2023: Continue current medications and tx plan. Will plan to consider augmentation with haldol once abilify JOSHI effects have waned over the next few weeks. 03/17/2023: * continue LiCO3 600 mg QAM & 900 mg QHS, anticipate consolidating to 1500 mg QHS starting tomorrow * continue clozapine 100 mg QAM & 250 mg QHS, consider consolidating to 350 mg QHS * discontinue aripiprazole lauroxil 400 mg IM monthly, last given 10 March 2023 (so will remain at significant level for several more weeks) * anticipate adding haloperidol, but at this point that would constitute 3 concurrent antipsychotics 03/16/2023: * continue LiCO3 600 mg QAM & 900 mg QHS, consider consolidating to 1500 mg QHS * recheck lithium level tomorrow * continue clozapine 100 mg QAM & 250 mg QHS, consider consolidating to 350 mg QHS * discontinue aripiprazole lauroxil 400 mg IM monthly, last given 10 March 2023 * anticipate adding haloperidol, but at this point that would constitute 3 concurrent antipsychotics * completed [place] form 785 for part 304(c) "involuntary" treatment at the [facility] 03/15/2023: * continue LiCO3 600 mg QAM & 900 mg QHS, consider consolidating to 1500 mg QHS * recheck lithium level in 2 days * continue clozapine 100 mg QAM & 250 mg QHS, consider consolidating to 350 mg QHS * discontinue aripiprazole lauroxil 400 mg IM monthly, last given 10 March 2023 * discontinue aripiprazole 5 mg daily 03/14/2023: The patient was admitted to the [facility] ([facility]) on q15 min checks (behavioral with suicide precautions) for safety. The patient will participate in group, recreational, and milieu therapies and will be offered additional individual and family sessions as clinically appropriate. Pt was recently started on aripiprazole lauroxil. Since his record indicates a failed trial of oral aripiprazole in the past, I will be circumspect about di scontinuing clozapine at this time. * continue LiCO3 600 mg QAM & 900 mg QHS * continue clozapine 100 mg QAM & 250 mg QHS for the time being * continue aripiprazole lauroxil 400 mg IM monthly, next due 09 April 2023 * continue aripiprazole 5 mg daily Inventory Assets Strengths: voluntary, intelligent Needs: safety and stabilization, medication adjustment Suicide Risk Level Suicide Risk Level: Moderate (q15 min suicide checks) (SI with depression prior to admission but has been consistently denying SI since admission, responds to internal stimuli but engages easily, feels safe here and agrees to let nursing know if he requires additional support or feels unable to remain safe) Risk Factors Assessment Male: Yes : Yes Do You Have Access To A Gun?: No Health Problems: No Mental Health Diagnoses: Yes Substance Use Disorders: No Previous Attempt: No Family History of Suicide: No Previous Psychiatric Hospitalization: Yes Hopelessness: No Protective Factors Assessment Employed: No Good Rapport with Provider: Yes Interval History Identifying Information NASEEM MCGEE is a 27-year-old M who currently lives in [facility], has a history of Schizoaffective Disorder, Bipolar Type, and was admitted on 03/13/23 14:14 on a 201 voluntary commitment for susanne. He was committed under part 304(c) on 03/17/2023. Chief Complaint "Ok". Review of Systems Sleep Information Total Hours of Sleep: 7.5 Meal Information Percent Meal Consumed - Breakfast: 0 Percent Meal Consumed - Lunch: 100 Percent Meal Consumed - Dinner: 100 Nutrition Comment: Subjective Subjective Patient was seen & assessed and interval progress reviewed with treatment team nursing and social work. Went outside for walk with recreational therapist and was more open and talkative than normal. Still responding to internal stimuli when not in a one-on-one interaction. Denies any medication side effects or concerns. Physical Exam Psychiatric Orientation: alert, oriented to person, oriented to place, oriented to time and cooperative Apperance: appropriately dressed and appropriately groomed Eye Contact: + fair eye contact Motor Behavior: + psychomotor agitation (walking most of the day) Speech: normal rate/rhythm/volume of speech (but non spontaneous) Affect: + flat affect Mood: no depressed mood and no anxious mood Thought Process: + tangential thought process Thought Content: reality based without delusions Suicidal Thoughts: denies suicidal plan (for years has spoken of jumping into traffic; denies while here) and denies suicidal intent; + reports suicidal thoughts (chronic, intermittent thoughts that he doesn't find compelling) Homicidal Thoughts: denies homicidal thoughts Hallucinations: + auditory hallucinations (responds throughout the day); no visual hallucinations and no tactile hallucinations Cognition: recent memory grossly intact, remote memory grossly intact, attention grossly intact and language grossly intact Estimated Intelligence: average estimated intelligence and consistent with education level Insight: + fair insight Judgment: + limited judgement Vital Signs (Past 24 Hours) Last Vital Signs Temp 36.7 C 04/19/23 06:39 Pulse 85 04/19/23 06:39 Resp 16 04/19/23 06:39 BP 106/69 04/19/23 06:39 Pulse Ox 99 04/16/23 06:00 O2 Del Method Room Air 04/16/23 06:00 Results & Data ([facility]) Current Inpatient Medications Current Inpatient Medications: Current Inpatient Medications Clozapine (Clozapine 25 Mg Tab) 50 mg PO [facility] Stop: 04/21/23 21:59 Last Admin: 04/18/23 21:08 Dose: 50 mg Clozapine (Clozapine 100 Mg Tab) 300 mg PO [facility] Stop: 04/21/23 21:59 Last Admin: 04/18/23 21:08 Dose: 300 mg Haloperidol Decanoate (Haloperidol Decanoate Inj 50 Mg/Ml Vial) 25 mg IM Q28D [facility] Stop: 05/08/23 17:29 Last Admin: 04/08/23 18:38 Dose: 25 mg [place] Carbonate ([place] Carbonate Slow Rel 300 Mg Tab) 1,500 mg PO [facility] Stop: 05/10/23 21:59 Last Admin: 04/18/23 21:08 Dose: 1,500 mg Mental Health & Subst Abuse Tx Psychiatrist Name of Psychiatrist: Kody Rogers Psychiatrist's Time of Appointment with Psychiatrist: Please follow-up as needed. Psychiatric Appointment Comment: [address] [place] [address] Therapist Name of Therapist: [facility] Therapist's Therapy Appointment Comment: [address], [address], [place] [address] Photography Manager Name of Photography Manager: [facility] Phone Number for Photography Manager: [phone] Case Management Appointment Comment: Please resume your normal schedule. Post Discharge Appointments Primary Care Physician Name Of Family Doctor/PCP: Kody [facility] Time of Appointment with PCP: Please follow-up as needed. Provider Appointment Comment: [address] [place] [address] Labor Law Professor Name of Labor Law Professor: [facility] Peer Phone Number of Labor Law Professor: [phone] Labor Law Professor Appointment Comment: Please resume your normal schedule. Contact Information Discharge Discharge Address: [address] [place] [id number]
[2023-04-19] MEDS: LITHIUM CARBONATE SLOW REL 300 MG TAB PO SCH (21:16)
[2023-04-19] MEDS: cloZAPine 25 MG TAB PO SCH (21:16)
[2023-04-19] MEDS: cloZAPine 100 MG TAB PO SCH (21:16)
[2023-04-19] MEDS ORDERED: BISMUTH SUBSALICYLATE LIQD 236 ML PO PRN (21:18)
[2023-04-19] MEDS ORDERED: ACETAMINOPHEN 325 MG TAB PO PRN (21:18)
[2023-04-19] MEDS ORDERED: SODIUM CHLORIDE 0.65% NA SOLN 45 ML (OCEAN) PRN (21:18)
[2023-04-19] MEDS ORDERED: ALUMINUM/MAGNESIUM SUSP 30 ML UDC PO PRN (21:18)
[2023-04-19] MEDS ORDERED: hydrOXYzine HCl 25 MG TAB PO PRN ×2 (21:18)
[2023-04-19] MEDS ORDERED: MAGNESIUM HYDROXIDE SUSP 30 ML UDC PO PRN (21:18)
[2023-04-19] MEDS ORDERED: DOCUSATE SODIUM 100 MG CAP PO PRN (21:19)
--- NOTE | 2023-04-20 08:52 | Psychiatric Progress Note ---
Date of Service April 20, 2023 Impression / Recommendations Impression 27 y/o M resident of personal longterm with exacerbation Schizoaffective Disorder, Bipolar Type due to not taking medications [place] concerns for possible suicide attempt given recent SI with plans of walking into traffic. He is now on a 304 commitment and is unable to return to his personal longterm. [facility] referral in progress, the [facility] is currently reviewing. No other safe disposition options at this time. Referral in process with [facility] for possible [facility] intensive community bed. [facility] due to hx psychosis with intermittent auditory hallucinations, guarded around peers, cannot tolerate a roommate 04/20/2023: Slightly more engaged with staff and peers over the last 24 hours. Mild dizziness this morning, likely possible orthostatic hypotension effects from clozapine, will continue to monitor. Continues to respond to internal stimuli throughout the day when he is alone but less isolative overall. Remains unable to be safely discharged. (1) Schizoaffective disorder, bipolar type: Plan 04/20/2023: Continue current medications and tx plan. Safe disposition placement/treatment options ongoing 04/19/2023: Continue current medications and tx plan. 04/18/2023: Continue current medications and tx plan. 04/17/2023: Continue with current medications and tx plan. ANC stable. 04/16/2023: Continue current medications and tx plan. 04/15/2023: Continue current medications and tx plan. 04/14/2023: (no change in plan) * continue lithium 1,500 mg QHS * continue clozapine 350 mg QHS * continue haloperidol decanoate 25 mg IM Q4 Wk; most recent dose * continue work towards identifying appropriate outpatient/residential placement 04/13/2023: (no change in plan) * continue lithium 1,500 mg QHS * continue clozapine 350 mg QHS * continue haloperidol decanoate 25 mg IM Q4 Wk; most recent dose * continue work towards identifying appropriate outpatient/residential placement 04/12/2023: (no change in plan) * continue lithium 1,500 mg QHS * continue clozapine 350 mg QHS * continue haloperidol decanoate 25 mg IM Q4 Wk; most recent dose * continue work towards identifying appropriate outpatient/residential placement 04/11/2023: (no change in plan) * continue lithium 1,500 mg QHS * continue clozapine 350 mg QHS * continue haloperidol decanoate 25 mg IM Q4 Wk; most recent dose * has no safe placement available but otherwise appropriate for discharge 04/10/2023: * consolidate lithium to 1,500 mg QHS * continue clozapine 350 mg QHS * continue haloperidol decanoate 25 mg IM Q4 Wk; most recent dose * has no safe placement available 04/09/2023: (no change in plan) * continue lithium 600 mg QAM & 900 mg QHS - most recent level 1.0 mmol/L on 03/17/2023; consider consolidation to 1,500 mg QHS * continue clozapine 350 mg QHS * continue haloperidol decanoate 25 mg IM Q4 Wk; most recent dose * has no safe placement available 04/08/2023: * discontinue aripiprazole lauroxil (next dose due tomorrow) * start haloperidol decanoate 25 mg IM Q4 Wk * Continue clozapine 350 mg QHS * Continue lithium 600 mg QAM & 900 mg QHS - most recent level 1.0 mmol/L on 03/17/2023; consider consolidation to 1,500 mg QHS * At this point scant need for [facility] seen, yet has no place to go 04/07/2023: Continue current medications and tx plan. 04/06/2023: Discussed option to consider haldol if interested instead of abilify for next JOSHI, he will consider this (given prior positive response to clozapine and haldol combination) 04/05/2023: Continue with current medications and tx plan. 04/04/2023: Continue with current medications and tx plan. 04/03/2023: Continue with current medications and tx plan. 04/02/2023: Continue with current medications and tx plan. 04/01/2023: Continue with current medications and tx plan. 03/31/2023: diversion meeting completed. next lab draw 04/03/23. 03/25/2023: tolerating consolidation of clozaril to hs. 03/24/2023: Continue with current medications and tx plan. 03/23/2023: Continue with current medications and tx plan. 03/22/2023: Clozapine 350mg HS, continue other current medications 03/21/2023: Consolidate clozapine to 350mg HS starting tomorrow. 03/20/2023: Continue current medications and tx plan. 03/19/2023: Continue current medications and tx plan. CBC with ANC tomorrow. 03/18/2023: Continue current medications and tx plan. Will plan to consider augmentation with haldol once abilify JOSHI effects have waned over the next few weeks. 03/17/2023: * continue LiCO3 600 mg QAM & 900 mg QHS, anticipate consolidating to 1500 mg QHS starting tomorrow * continue clozapine 100 mg QAM & 250 mg QHS, consider consolidating to 350 mg QHS * discontinue aripiprazole lauroxil 400 mg IM monthly, last given 10 March 2023 (so will remain at significant level for several more weeks) * anticipate adding haloperidol, but at this point that would constitute 3 concurrent antipsychotics 03/16/2023: * continue LiCO3 600 mg QAM & 900 mg QHS, consider consolidating to 1500 mg QHS * recheck lithium level tomorrow * continue clozapine 100 mg QAM & 250 mg QHS, consider consolidating to 350 mg QHS * discontinue aripiprazole lauroxil 400 mg IM monthly, last given 10 March 2023 * anticipate adding haloperidol, but at this point that would constitute 3 concurrent antipsychotics * completed [place] form 785 for part 304(c) "involuntary" treatment at the [facility] 03/15/2023: * continue LiCO3 600 mg QAM & 900 mg QHS, consider consolidating to 1500 mg QHS * recheck lithium level in 2 days * continue clozapine 100 mg QAM & 250 mg QHS, consider consolidating to 350 mg QHS * discontinue aripiprazole lauroxil 400 mg IM monthly, last given 10 March 2023 * discontinue aripiprazole 5 mg daily 03/14/2023: The patient was admitted to the [facility] ([facility] inpatient mental health unit) on q15 min checks (behavioral with suicide precautions) for safety. The patient will participate in group, recreational, and milieu therapies and will be offered additional individual and family sessions as clinically appropriate. Pt was recently started on aripiprazole lauroxil. Since his record indicates a failed trial of oral aripiprazole in the past, I will be circumspect about discontinuing clozapine at this time. * continue LiCO3 600 mg QAM & 900 mg QHS * continue clozapine 100 mg QAM & 250 mg QHS for the time being * continue aripiprazole lauroxil 400 mg IM monthly, next due 09 April 2023 * continue aripiprazole 5 mg daily Inventory Assets Strengths: voluntary, intelligent Needs: safety and stabilization, medication adjustment Suicide Risk Level Suicide Risk Level: Moderate (q15 min suicide checks) (SI with depression prior to admission but has been consistently denying SI since admission, responds to internal stimuli but engages easily, feels safe here and agrees to let nursing know if he requires additional support or feels unable to remain safe) Risk Factors Assessment Male: Yes : Yes Do You Have Access To A Gun?: No Health Problems: No Mental Health Diagnoses: Yes Substance Use Disorders: No Previous Attempt: No Family History of Suicide: No Previous Psychiatric Hospitalization: Yes Hopelessness: No Protective Factors Assessment Employed: No Good Rapport with Provider: Yes Interval History Identifying Information NASEEM MCGEE is a 27-year-old M who currently lives in [facility], has a history of Schizoaffective Disorder, Bipolar Type, and was admitted on 03/13/23 14:14 on a 201 voluntary commitment for susanne. He was committed under part 304(c) on 03/17/2023. Chief Complaint "I'm good". Review of Systems Sleep Information Total Hours of Sleep: 7.5 Sleep Comments: Meal Information Percent Meal Consumed - Breakfast: 0 Percent Meal Consumed - Lunch: 100 Percent Meal Consumed - Dinner: 100 Subjective Subjective Patient was seen & assessed and interval progress reviewed with treatment team nursing and social work. He was interactive with a peer last evening and giving recommendations for music. Reports good mood today. Reports some mild dizziness on awakening but denies that this is interfering with walking or movement. Denies any other medication side effects. Physical Exam Psychiatric Orientation: alert, oriented to person, oriented to place, oriented to time and cooperative Apperance: appropriately dressed and appropriately groomed Eye Contact: + fair eye contact Motor Behavior: + psychomotor agitation (walking most of the day) Speech: normal rate/rhythm/volume of speech (but non spontaneous) Affect: + flat affect Mood: no depressed mood and no anxious mood Thought Process: + tangential thought process Thought Content: reality based without delusions Suicidal Thoughts: denies suicidal plan (for years has spoken of jumping into traffic; denies while here) and denies suicidal intent; + reports suicidal thoughts (chronic, intermittent thoughts that he doesn't find compelling) Homicidal Thoughts: denies homicidal thoughts Hallucinations: + auditory hallucinations (responds throughout the day); no visual hallucinations and no tactile hallucinations Cognition: recent memory grossly intact, remote memory grossly intact, attention grossly intact and language grossly intact Estimated Intelligence: average estimated intelligence and consistent with education level Insight: + fair insight Judgment: + limited judgement Vital Signs (Past 24 Hours) Last Vital Signs Temp 36.7 C 04/20/23 06:50 Pulse 88 04/20/23 06:51 Resp 16 04/20/23 06:50 BP 109/72 04/20/23 06:51 Pulse Ox 99 04/16/23 06:00 O2 Del Method Room Air 04/16/23 06:00 Results & Data ([facility]) Current Inpatient Medications Current Inpatient Medications: Current Inpatient Medications Acetaminophen (Acetaminophen 325 Mg Tab) 650 mg PO Q4H PRN PRN Reason: Headache or Minor Fever Stop: 05/19/23 21:17 Al Hydrox/Mg Hydrox/Simethicone (Aluminum/Magnesium Susp 30 Ml Udc) 30 ml PO Q4H PRN PRN Reason: GI Upset Stop: 05/19/23 21:17 Bismuth Subsalicylate (Bismuth Subsalicylate Liqd 236 Ml) 15 ml PO PRN PRN PRN Reason: Loose Stool Stop: 05/19/23 21:17 Clozapine (Clozapine 25 Mg Tab) 50 mg PO HS VIVIAN Stop: 06/08/23 21:59 Last Admin: 04/19/23 21:16 Dose: 50 mg Clozapine (Clozapine 100 Mg Tab) 300 mg PO HS VIVIAN Stop: 06/08/23 21:59 Last Admin: 04/19/23 21:16 Dose: 300 mg Docusate Sodium (Docusate Sodium 100 Mg Cap) 100 mg PO BID PRN PRN Reason: Constipation Stop: 05/20/23 08:59 Haloperidol Decanoate (Haloperidol Decanoate Inj 50 Mg/Ml Vial) 25 mg IM Q28D VIVIAN Stop: 05/08/23 17:29 Last Admin: 04/08/23 18:38 Dose: 25 mg Hydroxyzine HCl (Hydroxyzine Hcl 25 Mg Tab) 50 mg PO HSZ PRN PRN Reason: Insomnia Stop: 05/19/23 21:17 Hydroxyzine HCl (Hydroxyzine Hcl 25 Mg Tab) 25 mg PO Q4H PRN PRN Reason: Anxiety Stop: 05/19/23 21:17 [place] Carbonate ([place] Carbonate Slow Rel 300 Mg Tab) 1,500 mg PO HS VIVIAN Stop: 06/08/23 21:59 Last Admin: 04/19/23 21:16 Dose: 1,500 mg Magnesium Hydroxide (Magnesium Hydroxide Susp 30 Ml Udc) 30 ml PO DAILY PRN PRN Reason: Constipation Stop: 05/19/23 21:17 Sodium Chloride (Sodium Chloride 0.65% Na Soln 45 Ml ([place])) 1 - 2 sprays NA PRN PRN PRN Reason: Nasal Dryness/Congestion Stop: 05/19/23 21:17 Mental Health & Subst Abuse Tx Psychiatrist Name of Psychiatrist: Kody Rogers Psychiatrist's Time of Appointment with Psychiatrist: Please follow-up as needed. Psychiatric Appointment Comment: [address] [place] [address] Therapist Name of Therapist: [facility] Therapist's Therapy Appointment Comment: [address] [facility], [place] [address], [place] [address] Drainage Design Coordinator Name of Drainage Design Coordinator: [facility] Service Susanne Rose Phone Number for Drainage Design Coordinator: [phone] Case Management Appointment Comment: Please resume your normal schedule. Post Discharge Appointments Primary Care Physician Name Of Family Doctor/PCP: Kody Dunn [facility] Time of Appointment with PCP: Please follow-up as needed. Provider Appointment Comment: [address] [place] [address] Financial Services Officer Name of Financial Services Officer: [facility] Peer Phone Number of Financial Services Officer: [phone] Financial Services Officer Appointment Comment: Please resume your normal schedule. Contact Information Discharge Discharge Address: [address] [place], [place] [id number]
[2023-04-20] MEDS: LITHIUM CARBONATE SLOW REL 300 MG TAB PO SCH (21:10)
[2023-04-20] MEDS: cloZAPine 25 MG TAB PO SCH (21:12)
[2023-04-20] MEDS: cloZAPine 100 MG TAB PO SCH (21:13)
--- NOTE | 2023-04-21 08:51 | Psychiatric Progress Note ---
Date of Service April 21, 2023 Impression / Recommendations Impression 27 y/o M resident of personal usp with exacerbation Schizoaffective Disorder, Bipolar Type due to not taking medications [place] concerns for possible suicide attempt given recent SI with plans of walking into traffic. He is now on a 304 commitment and is unable to return to his personal usp. [facility] referral in progress, the [facility] is currently reviewing. No other safe disposition options at this time. Referral in process with [facility] for possible [facility] intensive community bed. [facility] due to hx psychosis with intermittent auditory hallucinations, guarded around peers, cannot tolerate a roommate 04/21/2023: Slightly more engaged with staff and peers, still responding to internal stimuli when walking in halls or while alone in his room, attending a few groups like community meeting with encouragement. Denies any medication side effects. Remains unable to be safely discharged. (1) Schizoaffective disorder, bipolar type: Plan 04/21/2023: Continue current medications and tx plan. 04/20/2023: Continue current medications and tx plan. Safe disposition placement/treatment options ongoing 04/19/2023: Continue current medications and tx plan. 04/18/2023: Continue current medications and tx plan. 04/17/2023: Continue with current medications and tx plan. ANC stable. 04/16/2023: Continue current medications and tx plan. 04/15/2023: Continue current medications and tx plan. 04/14/2023: (no change in plan) * continue lithium 1,500 mg QHS * continue clozapine 350 mg QHS * continue haloperidol decanoate 25 mg IM Q4 Wk; most recent dose * continue work towards identifying appropriate outpatient/residential placement 04/13/2023: (no change in plan) * continue lithium 1,500 mg QHS * continue clozapine 350 mg QHS * continue haloperidol decanoate 25 mg IM Q4 Wk; most recent dose * continue work towards identifying appropriate outpatient/residential placement 04/12/2023: (no change in plan) * continue lithium 1,500 mg QHS * continue clozapine 350 mg QHS * continue haloperidol decanoate 25 mg IM Q4 Wk; most recent dose * continue work towards identifying appropriate outpatient/residential placement 04/11/2023: (no change in plan) * continue lithium 1,500 mg QHS * continue clozapine 350 mg QHS * continue haloperidol decanoate 25 mg IM Q4 Wk; most recent dose * has no safe placement available but otherwise appropriate for discharge 04/10/2023: * consolidate lithium to 1,500 mg QHS * continue clozapine 350 mg QHS * continue haloperidol decanoate 25 mg IM Q4 Wk; most recent dose * has no safe placement available 04/09/2023: (no change in plan) * continue lithium 600 mg QAM & 900 mg QHS - most recent level 1.0 mmol/L on 03/17/2023; consider consolidation to 1,500 mg QHS * continue clozapine 350 mg QHS * continue haloperidol decanoate 25 mg IM Q4 Wk; most recent dose * has no safe placement available 04/08/2023: * discontinue aripiprazole lauroxil (next dose due tomorrow) * start haloperidol decanoate 25 mg IM Q4 Wk * Continue clozapine 350 mg QHS * Continue lithium 600 mg QAM & 900 mg QHS - most recent level 1.0 mmol/L on ; consider consolidation to 1,500 mg QHS * At this point scant need for [facility] seen, yet has no place to go 04/07/2023: Continue current medications and tx plan. 04/06/2023: Discussed option to consider haldol if interested instead of abilify for next JOSHI, he will consider this (given prior positive response to clozapine and haldol combination) 04/05/2023: Continue with current medications and tx plan. 04/04/2023: Continue with current medications and tx plan. 04/03/2023: Continue with current medications and tx plan. 04/02/2023: Continue with current medications and tx plan. 04/01/2023: Continue with current medications and tx plan. 03/31/2023: diversion meeting completed. next lab draw 04/03/23. 03/25/2023: tolerating consolidation of clozaril to hs. 03/24/2023: Continue with current medications and tx plan. 03/23/2023: Continue with current medications and tx plan. 03/22/2023: Clozapine 350mg HS, continue other current medications 03/21/2023: Consolidate clozapine to 350mg HS starting tomorrow. 03/20/2023: Continue current medications and tx plan. 03/19/2023: Continue current medications and tx plan. CBC with ANC tomorrow. 03/18/2023: Continue current medications and tx plan. Will plan to consider augmentation with haldol once abilify JOSHI effects have waned over the next few weeks. 03/17/2023: * continue LiCO3 600 mg QAM & 900 mg QHS, anticipate consolidating to 1500 mg QHS starting tomorrow * continue clozapine 100 mg QAM & 250 mg QHS, consider consolidating to 350 mg QHS * discontinue aripiprazole lauroxil 400 mg IM monthly, last given 10 March 2023 (so will remain at significant level for several more weeks) * anticipate adding haloperidol, but at this point that would constitute 3 concurrent antipsychotics 03/16/2023: * continue LiCO3 600 mg QAM & 900 mg QHS, consider consolidating to 1500 mg QHS * recheck lithium level tomorrow * continue clozapine 100 mg QAM & 250 mg QHS, consider consolidating to 350 mg QHS * discontinue aripiprazole lauroxil 400 mg IM monthly, last given 10 March 2023 * anticipate adding haloperidol, but at this point that would constitute 3 concurrent antipsychotics * completed [place] form MH 785 for part 304(c) "involuntary" treatment at the [facility] 03/15/2023: * continue LiCO3 600 mg QAM & 900 mg QHS, consider consolidating to 1500 mg QHS * recheck lithium level in 2 days * continue clozapine 100 mg QAM & 250 mg QHS, consider consolidating to 350 mg QHS * discontinue aripiprazole lauroxil 400 mg IM monthly, last given 10 March 2023 * discontinue aripiprazole 5 mg daily 03/14/2023: The patient was admitted to the [facility] ([facility] inpatient mental health unit) on q15 min checks (behavioral with suicide precautions) for safety. The patient will participate in group, recreational, and milieu therapies and will be offered additional individual and family sessions as clinically appropriate. Pt was recently started on aripiprazole lauroxil. Since his record indicates a failed trial of oral aripiprazole in the past, I will be circumspect about discontinuing clozapine at this time. * continue LiCO3 600 mg QAM & 900 mg QHS * continue clozapine 100 mg QAM & 250 mg QHS for the time being * continue aripiprazole lauroxil 400 mg IM monthly, next due 09 April 2023 * continue aripiprazole 5 mg daily Inventory Assets Strengths: voluntary, intelligent Needs: safety and stabilization, medication adjustment Suicide Risk Level Suicide Risk Level: Moderate (q15 min suicide checks) (SI with depression prior to admission but has been consistently denying SI since admission, responds to internal stimuli but engages easily, feels safe here and agrees to let nursing know if he requires additional support or feels unable to remain safe) Risk Factors Assessment Male: Yes : Yes Do You Have Access To A Gun?: No Health Problems: No Mental Health Diagnoses: Yes Substance Use Disorders: No Previous Attempt: No Family History of Suicide: No Previous Psychiatric Hospitalization: Yes Hopelessness: No Protective Factors Assessment Employed: No Good Rapport with Provider: Yes Interval History Identifying Information NASEEM MCGEE is a 27-year-old M who currently lives in [facility], has a history of Schizoaffective Disorder, Bipolar Type, and was admitted on 03/13/23 14:14 on a 201 voluntary commitment for susanne. He was committed under part 304(c) on 03/17/2023. Chief Complaint "Good". Review of Systems Sleep Information Total Hours of Sleep: 7 Meal Information Percent Meal Consumed - Breakfast: 0 Percent Meal Consumed - Lunch: 100 Percent Meal Consumed - Dinner: 100 Subjective Subjective Patient was seen & assessed and interval progress reviewed with treatment team nursing and social work. he reports "good" mood, denies any concerns. Remains agreeable with possible plan for extended acute inpatient treatment at [facility] if accepted to the program. Denies any medication side effects or concerns. Physical Exam Psychiatric Orientation: alert, oriented to person, oriented to place, oriented to time and cooperative Apperance: appropriately dressed and appropriately groomed Eye Contact: + fair eye contact Motor Behavior: + psychomotor agitation (walking most of the day) Speech: normal rate/rhythm/volume of speech (offering more episodes of brief spontaneous conversation at times) Affect: + flat affect Mood: no depressed mood and no anxious mood Thought Process: + concrete thought process Thought Content: reality based without delusions Suicidal Thoughts: denies suicidal plan (for years has spoken of jumping into traffic; denies while here) and denies suicidal intent; + reports suicidal thoughts (chronic, intermittent thoughts that he doesn't find compelling) Homicidal Thoughts: denies homicidal thoughts Hallucinations: + auditory hallucinations (responds throughout the day); no visual hallucinations and no tactile hallucinations Cognition: recent memory grossly intact, remote memory grossly intact, attention grossly intact and language grossly intact Estimated Intelligence: average estimated intelligence and consistent with education level Insight: + fair insight Judgment: + limited judgement Vital Signs (Past 24 Hours) Last Vital Signs Temp 36.8 C 04/21/23 06:00 Pulse 60 04/21/23 06:20 Resp 18 04/21/23 06:00 BP 109/74 04/21/23 06:20 Pulse Ox 99 04/21/23 06:00 O2 Del Method Room Air 04/21/23 06:00 Results & Data ([facility]) Current Inpatient Medications Current Inpatient Medications: Current Inpatient Medications Acetaminophen (Acetaminophen 325 Mg Tab) 650 mg PO Q4H PRN PRN Reason: Headache or Minor Fever Stop: 05/19/23 21:17 Al Hydrox/Mg Hydrox/Simethicone (Aluminum/Magnesium Susp 30 Ml Udc) 30 ml PO Q4H PRN PRN Reason: GI Upset Stop: 05/19/23 21:17 Bismuth Subsalicylate (Bismuth Subsalicylate Liqd 236 Ml) 15 ml PO PRN PRN PRN Reason: Loose Stool Stop: 05/19/23 21:17 Clozapine (Clozapine 25 Mg Tab) 50 mg PO HS VIVIAN Stop: 06/08/23 21:59 Last Admin: 04/20/23 21:12 Dose: 50 mg Clozapine (Clozapine 100 Mg Tab) 300 mg PO HS VIVIAN Stop: 06/08/23 21:59 Last Admin: 04/20/23 21:13 Dose: 300 mg Docusate Sodium (Docusate Sodium 100 Mg Cap) 100 mg PO BID PRN PRN Reason: Constipation Stop: 05/20/23 08:59 Haloperidol Decanoate (Haloperidol Decanoate Inj 50 Mg/Ml Vial) 25 mg IM Q28D VIVIAN Stop: 05/08/23 17:29 Last Admin: 04/08/23 18:38 Dose: 25 mg Hydroxyzine HCl (Hydroxyzine Hcl 25 Mg Tab) 50 mg PO HSZ PRN PRN Reason: Insomnia Stop: 05/19/23 21:17 Hydroxyzine HCl (Hydroxyzine Hcl 25 Mg Tab) 25 mg PO Q4H PRN PRN Reason: Anxiety Stop: 05/19/23 21:17 [place] Carbonate ([place] Carbonate Slow Rel 300 Mg Tab) 1,500 mg PO HS VIVIAN Stop: 06/08/23 21:59 Last Admin: 04/20/23 21:10 Dose: 1,500 mg Magnesium Hydroxide (Magnesium Hydroxide Susp 30 Ml Udc) 30 ml PO DAILY PRN PRN Reason: Constipation Stop: 05/19/23 21:17 Sodium Chloride (Sodium Chloride 0.65% Na Soln 45 Ml ([place])) 1 - 2 sprays NA PRN PRN PRN Reason: Nasal Dryness/Congestion Stop: 05/19/23 21:17 Mental Health & Subst Abuse Tx Psychiatrist Name of Psychiatrist: Kody Rogers Psychiatrist's Time of Appointment with Psychiatrist: Please follow-up as needed. Psychiatric Appointment Comment: [address] [place] [address] Therapist Name of Therapist: Cheko [facility] - Marilou Therapist's Therapy Appointment Comment: [address] [facility], [place] [address], [place] [address] Patient Safety Tech Name of Patient Safety Tech: [facility] Lisseth Rose Phone Number for Patient Safety Tech: [phone] Case Management Appointment Comment: Please resume your normal schedule. Post Discharge Appointments Primary Care Physician Name Of Family Doctor/PCP: Kody Dunn Primary Care Time of Appointment with PCP: Please follow-up as needed. Provider Appointment Comment: [address] [place] [address] Payroll And Benefits Manager Name of Payroll And Benefits Manager: [place] [facility] Peer Phone Number of Payroll And Benefits Manager: [phone] Payroll And Benefits Manager Appointment Comment: Please resume your normal schedule. Contact Information Discharge Discharge Address: [address] [place], [place] [id number]
[2023-04-21] MEDS: cloZAPine 100 MG TAB PO SCH (20:27)
[2023-04-21] MEDS: LITHIUM CARBONATE SLOW REL 300 MG TAB PO SCH (20:28)
[2023-04-21] MEDS: cloZAPine 25 MG TAB PO SCH (20:28)
--- NOTE | 2023-04-22 13:47 | Psychiatric Progress Note ---
Date of Service April 22, 2023 Impression / Recommendations Impression 27 y/o M resident of personal prison with exacerbation Schizoaffective Disorder, Bipolar Type due to not taking medications [place] concerns for possible suicide attempt given recent SI with plans of walking into traffic. He is now on a 304 commitment and is unable to return to his personal prison. [facility] referral in progress, the [facility] is currently reviewing. No other safe disposition options at this time. Referral in process with [facility] for possible [facility] intensive community bed. [facility] due to hx psychosis with intermittent auditory hallucinations, guarded around peers, cannot tolerate a roommate 04/22/2023: unchanged from last contact Plan: continue current meds and tx plan (1) Schizoaffective disorder, bipolar type: Inventory Assets Strengths: voluntary, intelligent Needs: safety and stabilization, medication adjustment Suicide Risk Level Suicide Risk Level: Moderate (q15 min suicide checks) (SI with depression prior to admission but has been consistently denying SI since admission, responds to internal stimuli but engages easily, feels safe here and agrees to let nursing know if he requires additional support or feels unable to remain safe) Suicide Risk Level Comments: has chronic suicidal thoughts on which he's never acted Risk Factors Assessment Male: Yes : Yes Do You Have Access To A Gun?: No Health Problems: No Mental Health Diagnoses: Yes Substance Use Disorders: No Previous Attempt: No Family History of Suicide: No Previous Psychiatric Hospitalization: Yes Hopelessness: No Protective Factors Assessment Employed: No Good Rapport with Provider: Yes Interval History Identifying Information NASEEM MCGEE is a 27-year-old M who currently lives in [facility], has a history of Schizoaffective Disorder, Bipolar Type, and was admitted on 03/13/23 14:14 on a 201 voluntary commitment for susanne. He was committed under part 304(c) on 03/17/2023. Chief Complaint awaiting placement Review of Systems Sleep Information Total Hours of Sleep: 7 Meal Information Percent Meal Consumed - Breakfast: 100 Percent Meal Consumed - Lunch: 75 Percent Meal Consumed - Dinner: 100 Subjective Subjective Patient was seen & assessed and interval progress reviewed with nursing. Continues to participate as able in unit routines. No acute issues. Reviewed last labs 04/17/23. Physical Exam Psychiatric alert, walking on unit but no akathisia, denies complaints, poor eye contact, affect more spontaneous, mood "fine" Vital Signs (Past 24 Hours) Last Vital Signs Temp 36.6 C 04/22/23 06:16 Pulse 70 04/22/23 06:16 Resp 16 04/22/23 06:16 BP 128/87 04/22/23 06:18 Pulse Ox 99 04/21/23 06:00 O2 Del Method Room Air 04/21/23 06:00 Results & Data ([facility]) Current Inpatient Medications Current Inpatient Medications: Current Inpatient Medications Acetaminophen (Acetaminophen 325 Mg Tab) 650 mg PO Q4H PRN PRN Reason: Headache or Minor Fever Stop: 05/19/23 21:17 Al Hydrox/Mg Hydrox/Simethicone (Aluminum/Magnesium Susp 30 Ml Udc) 30 ml PO Q4H PRN PRN Reason: GI Upset Stop: 05/19/23 21:17 Bismuth Subsalicylate (Bismuth Subsalicylate Liqd 236 Ml) 15 ml PO PRN PRN PRN Reason: Loose Stool Stop: 05/19/23 21:17 Clozapine (Clozapine 25 Mg Tab) 50 mg PO HS VIVIAN Stop: 06/08/23 21:59 Last Admin: 04/21/23 20:28 Dose: 50 mg Clozapine (Clozapine 100 Mg Tab) 300 mg PO HS VIVIAN Stop: 06/08/23 21:59 Last Admin: 04/21/23 20:27 Dose: 300 mg Docusate Sodium (Docusate Sodium 100 Mg Cap) 100 mg PO BID PRN PRN Reason: Constipation Stop: 05/20/23 08:59 Haloperidol Decanoate (Haloperidol Decanoate Inj 50 Mg/Ml Vial) 25 mg IM Q28D VIVIAN Stop: 05/08/23 17:29 Last Admin: 04/08/23 18:38 Dose: 25 mg Hydroxyzine HCl (Hydroxyzine Hcl 25 Mg Tab) 50 mg PO HSZ PRN PRN Reason: Insomnia Stop: 05/19/23 21:17 Hydroxyzine HCl (Hydroxyzine Hcl 25 Mg Tab) 25 mg PO Q4H PRN PRN Reason: Anxiety Stop: 05/19/23 21:17 [place] Carbonate ([place] Carbonate Slow Rel 300 Mg Tab) 1,500 mg PO HS VIVIAN Stop: 06/08/23 21:59 Last Admin: 04/21/23 20:28 Dose: 1,500 mg Magnesium Hydroxide (Magnesium Hydroxide Susp 30 Ml Udc) 30 ml PO DAILY PRN PRN Reason: Constipation Stop: 05/19/23 21:17 Sodium Chloride (Sodium Chloride 0.65% Na Soln 45 Ml ([place])) 1 - 2 sprays NA PRN PRN PRN Reason: Nasal Dryness/Congestion Stop: 05/19/23 21:17 Mental Health & Subst Abuse Tx Psychiatrist Name of Psychiatrist: Kody Rogers Psychiatrist's Time of Appointment with Psychiatrist: Please follow-up as needed. Psychiatric Appointment Comment: [address] [place] [address] Therapist Name of Therapist: Cheko [facility] - Marilou Therapist's Therapy Appointment Comment: [address], [address], [place] [address] Inspector Barrel Name of Inspector Barrel: [facility] Rose Phone Number for Inspector Barrel: [phone] Case Management Appointment Comment: Please resume your normal schedule. Post Discharge Appointments Primary Care Physician Name Of Family Doctor/PCP: Kody Dunn Primary Care Time of Appointment with PCP: Please follow-up as needed. Provider Appointment Comment: [address] [place] [address] Bottle Washer Machine Name of Bottle Washer Machine: [place] [facility] Peer Phone Number of Bottle Washer Machine: [phone] Bottle Washer Machine Appointment Comment: Please resume your normal schedule. Contact Information Discharge Discharge Address: [address] [place] [id number]
[2023-04-22] MEDS: cloZAPine 25 MG TAB PO SCH (21:05)
[2023-04-22] MEDS: LITHIUM CARBONATE SLOW REL 300 MG TAB PO SCH (21:06)
[2023-04-22] MEDS: cloZAPine 100 MG TAB PO SCH (21:06)
--- NOTE | 2023-04-23 12:10 | Psychiatric Progress Note ---
Date of Service April 23, 2023 Impression / Recommendations Impression 27 y/o M resident of personal nursing home with exacerbation Schizoaffective Disorder, Bipolar Type due to not taking medications [place] concerns for possible suicide attempt given recent SI with plans of walking into traffic. He is now on a 304 commitment and is unable to return to his personal nursing home. [facility] referral in progress, the [facility] is currently reviewing. No other safe disposition options at this time. Referral in process with [facility] for possible CRR intensive community bed. [facility] due to hx psychosis with intermittent auditory hallucinations, guarded around peers, cannot tolerate a roommate 04/23/2023: stable within hospital support Plan: continue current meds and tx plan (1) Schizoaffective disorder, bipolar type: Inventory Assets Strengths: voluntary, intelligent Needs: safety and stabilization, medication adjustment Suicide Risk Level Suicide Risk Level: Low (q15 min observation checks) Risk Factors Assessment Male: Yes : Yes Do You Have Access To A Gun?: No Health Problems: No Mental Health Diagnoses: Yes Substance Use Disorders: No Previous Attempt: No Family History of Suicide: No Previous Psychiatric Hospitalization: Yes Hopelessness: No Protective Factors Assessment Employed: No Good Rapport with Provider: Yes Interval History Identifying Information NASEEM MCGEE is a 27-year-old M who currently lives in [facility], has a history of Schizoaffective Disorder, Bipolar Type, and was admitted on 03/13/23 14:14 on a 201 voluntary commitment for susanne. He was committed under part 304(c) on 03/17/2023. Chief Complaint awaiting placement Review of Systems Sleep Information Total Hours of Sleep: 7.25 Meal Information Percent Meal Consumed - Breakfast: 100 Percent Meal Consumed - Lunch: 75 Percent Meal Consumed - Dinner: 100 Subjective Subjective Patient was seen & assessed and interval progress reviewed with nursing. No acute issues overnight. Physical Exam Psychiatric alert, cooperative, less internal preoccupation, did not appear to be responding to internal stimuli, no EPS. Vital Signs (Past 24 Hours) Last Vital Signs Temp 36.7 C 04/23/23 06:46 Pulse 97 H 04/23/23 06:47 Resp 16 04/23/23 06:46 BP 113/69 04/23/23 06:47 Pulse Ox 99 04/21/23 06:00 O2 Del Method Room Air 04/21/23 06:00 Results & Data ([facility]) Current Inpatient Medications Current Inpatient Medications: Current Inpatient Medications Acetaminophen (Acetaminophen 325 Mg Tab) 650 mg PO Q4H PRN PRN Reason: Headache or Minor Fever Stop: 05/19/23 21:17 Al Hydrox/Mg Hydrox/Simethicone (Aluminum/Magnesium Susp 30 Ml Udc) 30 ml PO Q4H PRN PRN Reason: GI Upset Stop: 05/19/23 21:17 Bismuth Subsalicylate (Bismuth Subsalicylate Liqd 236 Ml) 15 ml PO PRN PRN PRN Reason: Loose Stool Stop: 05/19/23 21:17 Clozapine (Clozapine 25 Mg Tab) 50 mg PO HS VIVIAN Stop: 06/08/23 21:59 Last Admin: 04/22/23 21:05 Dose: 50 mg Clozapine (Clozapine 100 Mg Tab) 300 mg PO HS VIVIAN Stop: 06/08/23 21:59 Last Admin: 04/22/23 21:06 Dose: 300 mg Docusate Sodium (Docusate Sodium 100 Mg Cap) 100 mg PO BID PRN PRN Reason: Constipation Stop: 05/20/23 08:59 Haloperidol Decanoate (Haloperidol Decanoate Inj 50 Mg/Ml Vial) 25 mg IM Q28D VIVIAN Stop: 05/08/23 17:29 Last Admin: 04/08/23 18:38 Dose: 25 mg Hydroxyzine HCl (Hydroxyzine Hcl 25 Mg Tab) 50 mg PO HSZ PRN PRN Reason: Insomnia Stop: 05/19/23 21:17 Hydroxyzine HCl (Hydroxyzine Hcl 25 Mg Tab) 25 mg PO Q4H PRN PRN Reason: Anxiety Stop: 05/19/23 21:17 [place] Carbonate ([place] Carbonate Slow Rel 300 Mg Tab) 1,500 mg PO HS VIVIAN Stop: 06/08/23 21:59 Last Admin: 04/22/23 21:06 Dose: 1,500 mg Magnesium Hydroxide (Magnesium Hydroxide Susp 30 Ml Udc) 30 ml PO DAILY PRN PRN Reason: Constipation Stop: 05/19/23 21:17 Sodium Chloride (Sodium Chloride 0.65% Na Soln 45 Ml ([place])) 1 - 2 sprays NA PRN PRN PRN Reason: Nasal Dryness/Congestion Stop: 05/19/23 21:17 Mental Health & Subst Abuse Tx Psychiatrist Name of Psychiatrist: Kody Rogers Psychiatrist's Time of Appointment with Psychiatrist: Please follow-up as needed. Psychiatric Appointment Comment: [address] [place] [address] Therapist Name of Therapist: [facility] - [facility]ou Therapist's Therapy Appointment Comment: [address], [address], [place] [address] Cook Syrup Maker Name of Cook Syrup Maker: [facility] Rose Phone Number for Cook Syrup Maker: [phone] Case Management Appointment Comment: Please resume your normal schedule. Post Discharge Appointments Primary Care Physician Name Of Family Doctor/PCP: Kody Dunn Primary Care Time of Appointment with PCP: Please follow-up as needed. Provider Appointment Comment: [address] [place] [address] Canteen Attendant Name of Canteen Attendant: [place] [facility] Peer Phone Number of Canteen Attendant: [phone] Canteen Attendant Appointment Comment: Please resume your normal schedule. Contact Information Discharge Discharge Address: [address] [place] [id number]
[2023-04-23] MEDS: cloZAPine 25 MG TAB PO SCH (20:48)
[2023-04-23] MEDS: cloZAPine 100 MG TAB PO SCH (20:49)
[2023-04-23] MEDS: LITHIUM CARBONATE SLOW REL 300 MG TAB PO SCH (20:49)
[2023-04-24 07:53] LABS: Basophils # (auto) 0.09 K/uL (0-0.2); Basophils % (auto) 0.9 %; Eosinophils # (auto) 0.35 K/uL (0-0.50); Eosinophils % (auto) 3.4 %; Hematocrit (blood only) 45.9 % (42.0-52.0); Hemoglobin 15.3 g/dl (14.0-18.0); Immature Granulocytes # (auto) 0.09 K/uL (0.01-0.20); Immature Granulocytes % (auto) 0.9 %; Lymphocytes # (auto) 2.54 K/uL (1.2-3.4); Lymphocytes % (auto) 24.6 %; Mean Corpuscular Hemoglobin 27.3 pg (25.0-34.0); Mean Corpuscular Hgb Conc 33.3 g/dL (32.0-36.0); Mean Platelet Volume 10.3 fL (9.4-12.4); Monocytes # (auto) 0.86 K/uL (0.11-0.59); Monocytes % (auto) 8.3 %; Neutrophils # (auto) 6.38 K/uL (1.40-6.50); Neutrophils % (auto) 61.9 %; Platelet Count 350 K/uL (130-400); RDW Coefficient of Variation 13.5 % (11.5-14.5); RDW Standard Deviation 39.8 fL (36.4-46.3); White Blood Count 10.31 K/ul (4.8-10.8)
--- NOTE | 2023-04-24 15:44 | Psychiatric Progress Note ---
Date of Service April 24, 2023 Impression / Recommendations Impression 27 y/o M resident of personal [facility] with exacerbation Schizoaffective Disorder, Bipolar Type due to not taking medications and [place] concerns for possible suicide attempt given recent SI with plans of walking into traffic. He is now on a 304 commitment and is unable to return to his personal [facility]. [facility] referral in progress, the [facility] is currently reviewing. No other safe disposition options at this time. Referral in process with [facility] for possible [facility]R intensive community bed. MNPR due to hx psychosis with intermittent auditory hallucinations, guarded around peers, cannot tolerate a roommate 04/23/2023: CBC reviewed Plan: continue current meds and tx plan (1) Schizoaffective disorder, bipolar type: Inventory Assets Strengths: voluntary, intelligent Needs: safety and stabilization, medication adjustment Suicide Risk Level Suicide Risk Level: Low (q15 min observation checks) Suicide Risk Level Comments: has chronic suicidal thoughts on which he's never acted Risk Factors Assessment Male: Yes : Yes Do You Have Access To A Gun?: No Health Problems: No Mental Health Diagnoses: Yes Substance Use Disorders: No Previous Attempt: No Family History of Suicide: No Previous Psychiatric Hospitalization: Yes Hopelessness: No Protective Factors Assessment Employed: No Good Rapport with Provider: Yes Interval History Identifying Information NASEEM MCGEE is a 27-year-old M who currently lives in [facility], has a history of Schizoaffective Disorder, Bipolar Type, and was admitted on 03/13/23 14:14 on a 201 voluntary commitment for susanne. He was committed under part 304(c) on 03/17/2023. Chief Complaint awaiting placement Review of Systems Sleep Information Total Hours of Sleep: 7.75 Meal Information Percent Meal Consumed - Breakfast: 100 Percent Meal Consumed - Lunch: 100 Percent Meal Consumed - Dinner: 100 Subjective Subjective Patient was seen & assessed and interval progress reviewed with treatment team. no acute issues overnight. Physical Exam Psychiatric alert, cooperative, occasional talk to self but denies bernard, no SI/HI, no paranoia expressed. No EPS. Vital Signs (Past 24 Hours) Last Vital Signs Temp 36.7 C 04/24/23 06:47 Pulse 83 04/24/23 06:47 Resp 16 04/24/23 06:47 BP 93/58 L 04/24/23 06:47 Pulse Ox 99 07/14/23 06:00 O2 Del Method Room Air 04/21/23 06:00 Results & Data ([facility]) Laboratory Results Laboratory Results - last 24 hr 04/24/23 07:25 WBC 10.31 RBC 5.60 Hgb 15.3 Hct 45.9 MCV 82.0 MCH 27.3 MCHC 33.3 RDW Std Deviation 39.8 RDW Coeff of Belén 13.5 Plt Count 350 MPV 10.3 Immature Gran % (Auto) 0.9 Neut % (Auto) 61.9 Lymph % (Auto) 24.6 Valencia % (Auto) 8.3 Eos % (Auto) 3.4 Baso % (Auto) 0.9 Neut # (Auto) 6.38 Lymph # (Auto) 2.54 Valencia # (Auto) 0.86 H Eos # (Auto) 0.35 Baso # (Auto) 0.09 Immature Gran # (Auto) 0.09 Current Inpatient Medications Current Inpatient Medications: Current Inpatient Medications Acetaminophen (Acetaminophen 325 Mg Tab) 650 mg PO Q4H PRN PRN Reason: Headache or Minor Fever Stop: 05/19/23 21:17 Al Hydrox/Mg Hydrox/Simethicone (Aluminum/Magnesium Susp 30 Ml Udc) 30 ml PO Q4H PRN PRN Reason: GI Upset Stop: 05/19/23 21:17 Bismuth Subsalicylate (Bismuth Subsalicylate Liqd 236 Ml) 15 ml PO PRN PRN PRN Reason: Loose Stool Stop: 05/19/23 21:17 Clozapine (Clozapine 25 Mg Tab) 50 mg PO HS VIVIAN Stop: 06/08/23 21:59 Last Admin: 04/23/23 20:48 Dose: 50 mg Clozapine (Clozapine 100 Mg Tab) 300 mg PO HS VIVIAN Stop: 06/08/23 21:59 Last Admin: 04/23/23 20:49 Dose: 300 mg Docusate Sodium (Docusate Sodium 100 Mg Cap) 100 mg PO BID PRN PRN Reason: Constipation Stop: 05/20/23 08:59 Haloperidol Decanoate (Haloperidol Decanoate Inj 50 Mg/Ml Vial) 25 mg IM Q28D VIVIAN Stop: 05/08/23 17:29 Last Admin: 04/08/23 18:38 Dose: 25 mg Hydroxyzine HCl (Hydroxyzine Hcl 25 Mg Tab) 50 mg PO HSZ PRN PRN Reason: Insomnia Stop: 05/19/23 21:17 Hydroxyzine HCl (Hydroxyzine Hcl 25 Mg Tab) 25 mg PO Q4H PRN PRN Reason: Anxiety Stop: 05/19/23 21:17 [place] Carbonate ([place] Carbonate Slow Rel 300 Mg Tab) 1,500 mg PO HS VIVIAN Stop: 06/08/23 21:59 Last Admin: 04/23/23 20:49 Dose: 1,500 mg Magnesium Hydroxide (Magnesium Hydroxide Susp 30 Ml Udc) 30 ml PO DAILY PRN PRN Reason: Constipation Stop: 05/19/23 21:17 Sodium Chloride (Sodium Chloride 0.65% Na Soln 45 Ml ([place])) 1 - 2 sprays NA PRN PRN PRN Reason: Nasal Dryness/Congestion Stop: 05/19/23 21:17 Mental Health & Subst Abuse Tx Psychiatrist Name of Psychiatrist: Kody Rogers Psychiatrist's Time of Appointment with Psychiatrist: Please follow-up as needed. Psychiatric Appointment Comment: [address] [place] [address] Therapist Name of Therapist: Cheko [facility] - Marilou Therapist's Therapy Appointment Comment: [address] [facility] [address], [place] [address], [place] [address] Senior Consumer Insights Consultant Name of Senior Consumer Insights Consultant: [facility] Lisseth [place] Phone Number for Senior Consumer Insights Consultant: [phone] Case Management Appointment Comment: Please resume your normal schedule. Post Discharge Appointments Primary Care Physician Name Of Family Doctor/PCP: Kody Dunn Primary [facility] Time of Appointment with PCP: Please follow-up as needed. Provider Appointment Comment: [address] [place] [address] Laundry Presser Name of Laundry Presser: [place] [facility] Peer Phone Number of Laundry Presser: [phone] Laundry Presser Appointment Comment: Please resume your normal schedule. Contact Information Discharge Discharge Address: [address] [place] [address]
[2023-04-24] MEDS: LITHIUM CARBONATE SLOW REL 300 MG TAB PO SCH (21:27)
[2023-04-24] MEDS: cloZAPine 100 MG TAB PO SCH (21:28)
[2023-04-24] MEDS: cloZAPine 25 MG TAB PO SCH (21:28)
--- NOTE | 2023-04-25 12:43 | Psychiatric Progress Note ---
Date of Service April 25, 2023 Impression / Recommendations Impression 27 y/o M resident of personal retirement with exacerbation Schizoaffective Disorder, Bipolar Type due to not taking medications and [place] concerns for possible suicide attempt given recent SI with plans of walking into traffic. He is now on a 304 commitment and is unable to return to his personal retirement. [facility] referral in progress, the [facility] is currently reviewing. No other safe disposition options at this time. Referral in process with [facility] for possible CRR intensive community bed. MNPR due to hx psychosis with intermittent auditory hallucinations, guarded around peers, cannot tolerate a roommate 04/25/2023: awaiting placement Plan: continue current meds and tx plan (1) Schizoaffective disorder, bipolar type: Inventory Assets Strengths: voluntary, intelligent Needs: safety and stabilization, medication adjustment Suicide Risk Level Suicide Risk Level: Low (q15 min observation checks) Suicide Risk Level Comments: has chronic suicidal thoughts on which he's never acted Risk Factors Assessment Male: Yes : Yes Do You Have Access To A Gun?: No Health Problems: No Mental Health Diagnoses: Yes Substance Use Disorders: No Previous Attempt: No Family History of Suicide: No Previous Psychiatric Hospitalization: Yes Hopelessness: No Protective Factors Assessment Employed: No Good Rapport with Provider: Yes Interval History Identifying Information NASEEM MCGEE is a 27-year-old M who currently lives in [facility], has a history of Schizoaffective Disorder, Bipolar Type, and was admitted on 03/13/23 14:14 on a 201 voluntary commitment for susanne. He was committed under part 304(c) on 03/17/2023. Chief Complaint "still good" Review of Systems Sleep Information Total Hours of Sleep: 7.25 Meal Information Percent Meal Consumed - Breakfast: 50 Percent Meal Consumed - Lunch: 100 Percent Meal Consumed - Dinner: 100 Subjective Subjective Patient was seen & assessed and interval progress reviewed with nursing and social work. No acute issues. tolerating meds. am BP a little lower today but adequate PO. Physical Exam Psychiatric alert, cooperative, fair eye contact, affect constricted, no evidence of bernard, no SI/HI, no EPS. Vital Signs (Past 24 Hours) Last Vital Signs Temp 36.4 C L 04/25/23 06:45 Pulse 86 04/25/23 06:46 Resp 16 04/25/23 06:45 BP 98/60 L 04/25/23 06:46 Pulse Ox 99 04/21/23 06:00 O2 Del Method Room Air 04/21/23 06:00 Results & Data ([facility]) Current Inpatient Medications Current Inpatient Medications: Current Inpatient Medications Acetaminophen (Acetaminophen 325 Mg Tab) 650 mg PO Q4H PRN PRN Reason: Headache or Minor Fever Stop: 05/19/23 21:17 Al Hydrox/Mg Hydrox/Simethicone (Aluminum/Magnesium Susp 30 Ml Udc) 30 ml PO Q4H PRN PRN Reason: GI Upset Stop: 05/19/23 21:17 Bismuth Subsalicylate (Bismuth Subsalicylate Liqd 236 Ml) 15 ml PO PRN PRN PRN Reason: Loose Stool Stop: 05/19/23 21:17 Clozapine (Clozapine 25 Mg Tab) 50 mg PO HS VIVIAN Stop: 06/08/23 21:59 Last Admin: 04/24/23 21:28 Dose: 50 mg Clozapine (Clozapine 100 Mg Tab) 300 mg PO HS VIVIAN Stop: 06/08/23 21:59 Last Admin: 04/24/23 21:28 Dose: 300 mg Docusate Sodium (Docusate Sodium 100 Mg Cap) 100 mg PO BID PRN PRN Reason: Constipation Stop: 05/20/23 08:59 Haloperidol Decanoate (Haloperidol Decanoate Inj 50 Mg/Ml Vial) 25 mg IM Q28D VIVIAN Stop: 05/08/23 17:29 Last Admin: 04/08/23 18:38 Dose: 25 mg Hydroxyzine HCl (Hydroxyzine Hcl 25 Mg Tab) 50 mg PO HSZ PRN PRN Reason: Insomnia Stop: 05/19/23 21:17 Hydroxyzine HCl (Hydroxyzine Hcl 25 Mg Tab) 25 mg PO Q4H PRN PRN Reason: Anxiety Stop: 05/19/23 21:17 [place] Carbonate ([place] Carbonate Slow Rel 300 Mg Tab) 1,500 mg PO HS VIVIAN Stop: 06/08/23 21:59 Last Admin: 04/24/23 21:27 Dose: 1,500 mg Magnesium Hydroxide (Magnesium Hydroxide Susp 30 Ml Udc) 30 ml PO DAILY PRN PRN Reason: Constipation Stop: 05/19/23 21:17 Sodium Chloride (Sodium Chloride 0.65% Na Soln 45 Ml ([place])) 1 - 2 sprays NA PRN PRN PRN Reason: Nasal Dryness/Congestion Stop: 05/19/23 21:17 Mental Health & Subst Abuse Tx Psychiatrist Name of Psychiatrist: Kody Rogers Psychiatrist's Time of Appointment with Psychiatrist: Please follow-up as needed. Psychiatric Appointment Comment: [address] [place] [address] Therapist Name of Therapist: Cheko [place] - Marilou Therapist's Therapy Appointment Comment: [address], [address], [place] [address] Jet Worker Name of Jet Worker: [facility] - [place] Phone Number for Jet Worker: [phone] Case Management Appointment Comment: Please resume your normal schedule. Post Discharge Appointments Primary Care Physician Name Of Family Doctor/PCP: Kody Dunn Primary Care Time of Appointment with PCP: Please follow-up as needed. Provider Appointment Comment: [address] [place] [address] Scratcher Tender Name of Scratcher Tender: [facility] Peer Phone Number of Scratcher Tender: [phone] Scratcher Tender Appointment Comment: Please resume your normal schedule. Contact Information Discharge Discharge Address: [address] [place] [id number]
[2023-04-25] MEDS: cloZAPine 25 MG TAB PO SCH (21:36)
[2023-04-25] MEDS: cloZAPine 100 MG TAB PO SCH (21:36)
[2023-04-25] MEDS: LITHIUM CARBONATE SLOW REL 300 MG TAB PO SCH (21:36)
--- NOTE | 2023-04-26 14:37 | Psychiatric Progress Note ---
Date of Service April 26, 2023 Impression / Recommendations Impression 27 y/o M resident of personal [facility] with exacerbation Schizoaffective Disorder, Bipolar Type due to not taking medications [place] concerns for possible suicide attempt given recent SI with plans of walking into traffic. He is now on a 304 commitment and is unable to return to his personal alf. [facility] referral in progress, the [facility] is currently reviewing. No other safe disposition options at this time. Referral in process with counts include 234 beds at the [facility] for possible CRR intensive community bed. MNPR due to hx psychosis with intermittent auditory hallucinations, guarded around peers, cannot tolerate a roommate 04/26/2023: awaiting bed date Plan: continue current meds and tx plan (1) Schizoaffective disorder, bipolar type: Inventory Assets Strengths: voluntary, intelligent Needs: safety and stabilization, medication adjustment Suicide Risk Level Suicide Risk Level: Low (q15 min observation checks) Risk Factors Assessment Male: Yes : Yes Do You Have Access To A Gun?: No Health Problems: No Mental Health Diagnoses: Yes Substance Use Disorders: No Previous Attempt: No Family History of Suicide: No Previous Psychiatric Hospitalization: Yes Hopelessness: No Protective Factors Assessment Employed: No Good Rapport with Provider: Yes Interval History Identifying Information NASEEM MCGEE is a 27-year-old M who currently lives in [facility], has a history of Schizoaffective Disorder, Bipolar Type, and was admitted on 03/13/23 14:14 on a 201 voluntary commitment for susanne. He was committed under part 304(c) on 03/17/2023. Chief Complaint accepted to [facility]-extended care Review of Systems Sleep Information Total Hours of Sleep: 7.25 Meal Information Percent Meal Consumed - Breakfast: 100 Percent Meal Consumed - Lunch: 100 Percent Meal Consumed - Dinner: 100 Subjective Subjective Patient was seen & assessed and interval progress reviewed with treatment team. No acute issues over night. Enjoyed his therapeutic time outside yesterday. Seems bored. Physical Exam Psychiatric alert, cooperative, doesn't engage in reciprocal conversation, everts gaze Vital Signs (Past 24 Hours) Last Vital Signs Temp 36.6 C 04/26/23 06:43 Pulse 99 H 04/26/23 06:43 Resp 16 04/26/23 06:43 BP 104/61 04/26/23 06:43 Pulse Ox 99 04/21/23 06:00 O2 Del Method Room Air 04/21/23 06:00 Results & Data ([facility]) Current Inpatient Medications Current Inpatient Medications: Current Inpatient Medications Acetaminophen (Acetaminophen 325 Mg Tab) 650 mg PO Q4H PRN PRN Reason: Headache or Minor Fever Stop: 05/19/23 21:17 Al Hydrox/Mg Hydrox/Simethicone (Aluminum/Magnesium Susp 30 Ml Udc) 30 ml PO Q4H PRN PRN Reason: GI Upset Stop: 05/19/23 21:17 Bismuth Subsalicylate (Bismuth Subsalicylate Liqd 236 Ml) 15 ml PO PRN PRN PRN Reason: Loose Stool Stop: 05/19/23 21:17 Clozapine (Clozapine 25 Mg Tab) 50 mg PO HS VIVIAN Stop: 06/08/23 21:59 Last Admin: 04/25/23 21:36 Dose: 50 mg Clozapine (Clozapine 100 Mg Tab) 300 mg PO HS VIVIAN Stop: 06/08/23 21:59 Last Admin: 04/25/23 21:36 Dose: 300 mg Docusate Sodium (Docusate Sodium 100 Mg Cap) 100 mg PO BID PRN PRN Reason: Constipation Stop: 05/20/23 08:59 Haloperidol Decanoate (Haloperidol Decanoate Inj 50 Mg/Ml Vial) 25 mg IM Q28D VIVIAN Stop: 05/08/23 17:29 Last Admin: 04/08/23 18:38 Dose: 25 mg Hydroxyzine HCl (Hydroxyzine Hcl 25 Mg Tab) 50 mg PO HSZ PRN PRN Reason: Insomnia Stop: 05/19/23 21:17 Hydroxyzine HCl (Hydroxyzine Hcl 25 Mg Tab) 25 mg PO Q4H PRN PRN Reason: Anxiety Stop: 05/19/23 21:17 [place] Carbonate ([place] Carbonate Slow Rel 300 Mg Tab) 1,500 mg PO HS VIVIAN Stop: 06/08/23 21:59 Last Admin: 04/25/23 21:36 Dose: 1,500 mg Magnesium Hydroxide (Magnesium Hydroxide Susp 30 Ml Udc) 30 ml PO DAILY PRN PRN Reason: Constipation Stop: 05/19/23 21:17 Sodium Chloride (Sodium Chloride 0.65% Na Soln 45 Ml ([place])) 1 - 2 sprays NA PRN PRN PRN Reason: Nasal Dryness/Congestion Stop: 05/19/23 21:17 Mental Health & Subst Abuse Tx Psychiatrist Name of Psychiatrist: Kody Rogers Psychiatrist's Time of Appointment with Psychiatrist: Please follow-up as needed. Psychiatric Appointment Comment: [address] [place] [address] Therapist Name of Therapist: [facility] - Marilou Therapist's Therapy Appointment Comment: [address], [facility] [address], [place] [address] Cloud Automation Tester Name of Cloud Automation Tester: [facility] - [place] Phone Number for Cloud Automation Tester: [phone] Case Management Appointment Comment: Please resume your normal schedule. Post Discharge Appointments Primary Care Physician Name Of Family Doctor/PCP: Kody Dunn Primary Care Time of Appointment with PCP: Please follow-up as needed. Provider Appointment Comment: [address] [place] [address] Industrial Ecology Technician Name of Industrial Ecology Technician: [place] [facility] Peer Phone Number of Industrial Ecology Technician: [phone] Industrial Ecology Technician Appointment Comment: Please resume your normal schedule. Contact Information Discharge Discharge Address: [address] [place] [id number]
[2023-04-26] MEDS: cloZAPine 100 MG TAB PO SCH (20:55)
[2023-04-26] MEDS: LITHIUM CARBONATE SLOW REL 300 MG TAB PO SCH (20:56)
[2023-04-26] MEDS: cloZAPine 25 MG TAB PO SCH (20:56)
--- NOTE | 2023-04-27 12:18 | Psychiatric Progress Note ---
Date of Service April 27, 2023 Impression / Recommendations Impression 27 y/o M resident of [facility] [place] [facility] with exacerbation Schizoaffective Disorder, Bipolar Type due to not taking medications [place] concerns for possible suicide attempt given recent SI with plans of walking into traffic. He is now on a 304 commitment and is unable to return to his personal [place] [facility]. [facility] referral in progress, the [facility] is currently reviewing. No other safe disposition options at this time. Referral in process with [facility] for possible CRR intensive community bed. MNPR due to hx psychosis with intermittent auditory hallucinations, guarded around peers, cannot tolerate a roommate 04/27/2023: awaiting bed date Plan: continue current meds and tx plan (1) Schizoaffective disorder, bipolar type: Inventory Assets Strengths: voluntary, intelligent Needs: safety and stabilization, medication adjustment Suicide Risk Level Suicide Risk Level: Low (q15 min observation checks) Suicide Risk Level Comments: has chronic suicidal thoughts on which he's never acted Risk Factors Assessment Male: Yes : Yes Do You Have Access To A Gun?: No Health Problems: No Mental Health Diagnoses: Yes Substance Use Disorders: No Previous Attempt: No Family History of Suicide: No Previous Psychiatric Hospitalization: Yes Hopelessness: No Protective Factors Assessment Employed: No Good Rapport with Provider: Yes Interval History Identifying Information NASEEM MCGEE is a 27-year-old M who currently lives in [facility], has a history of Schizoaffective Disorder, Bipolar Type, and was admitted on 03/13/23 14:14 on a 201 voluntary commitment for susanne. He was committed under part 304(c) on 03/17/2023. Chief Complaint awaiting bed date Review of Systems Sleep Information Total Hours of Sleep: 6.5 Meal Information Percent Meal Consumed - Breakfast: 100 Percent Meal Consumed - Lunch: 100 Percent Meal Consumed - Dinner: 100 Subjective Subjective Patient was seen & assessed and interval progress reviewed with nursing and social work. meeting planned with [facility] and insurance rep to finalize transition to [facility] extended care. Patient voices no feelings re: transition. Physical Exam Psychiatric alert, poor eye contact, thoughts concrete, no SI/HI/bernard. Occasional head jerk but seems more related to music (constant headphones) or response to internal stim rather than dystonia. Vital Signs (Past 24 Hours) Last Vital Signs Temp 36.8 C 04/27/23 06:42 Pulse 82 04/27/23 06:44 Resp 16 04/27/23 06:42 BP 111/66 04/27/23 06:44 Pulse Ox 99 04/21/23 06:00 O2 Del Method Room Air 04/21/23 06:00 Results & Data ([facility]) Current Inpatient Medications Current Inpatient Medications: Current Inpatient Medications Acetaminophen (Acetaminophen 325 Mg Tab) 650 mg PO Q4H PRN PRN Reason: Headache or Minor Fever Stop: 05/19/23 21:17 Al Hydrox/Mg Hydrox/Simethicone (Aluminum/Magnesium Susp 30 Ml Udc) 30 ml PO Q4H PRN PRN Reason: GI Upset Stop: 05/19/23 21:17 Bismuth Subsalicylate (Bismuth Subsalicylate Liqd 236 Ml) 15 ml PO PRN PRN PRN Reason: Loose Stool Stop: 05/19/23 21:17 Clozapine (Clozapine 25 Mg Tab) 50 mg PO HS VIVIAN Stop: 06/08/23 21:59 Last Admin: 04/26/23 20:56 Dose: 50 mg Clozapine (Clozapine 100 Mg Tab) 300 mg PO HS VIVIAN Stop: 06/08/23 21:59 Last Admin: 04/26/23 20:55 Dose: 300 mg Docusate Sodium (Docusate Sodium 100 Mg Cap) 100 mg PO BID PRN PRN Reason: Constipation Stop: 05/20/23 08:59 Haloperidol Decanoate (Haloperidol Decanoate Inj 50 Mg/Ml Vial) 25 mg IM Q28D VIVIAN Stop: 05/08/23 17:29 Last Admin: 04/08/23 18:38 Dose: 25 mg Hydroxyzine HCl (Hydroxyzine Hcl 25 Mg Tab) 50 mg PO HSZ PRN PRN Reason: Insomnia Stop: 05/19/23 21:17 Hydroxyzine HCl (Hydroxyzine Hcl 25 Mg Tab) 25 mg PO Q4H PRN PRN Reason: Anxiety Stop: 05/19/23 21:17 [place] Carbonate ([place] Carbonate Slow Rel 300 Mg Tab) 1,500 mg PO HS VIVIAN Stop: 06/08/23 21:59 Last Admin: 04/26/23 20:56 Dose: 1,500 mg Magnesium Hydroxide (Magnesium Hydroxide Susp 30 Ml Udc) 30 ml PO DAILY PRN PRN Reason: Constipation Stop: 05/19/23 21:17 Sodium Chloride (Sodium Chloride 0.65% Na Soln 45 Ml ([place])) 1 - 2 sprays NA PRN PRN PRN Reason: Nasal Dryness/Congestion Stop: 05/19/23 21:17 Mental Health & Subst Abuse Tx Psychiatrist Name of Psychiatrist: Kody Rogers Psychiatrist's Time of Appointment with Psychiatrist: Please follow-up as needed. Psychiatric Appointment Comment: [address] [place] [address] Therapist Name of Therapist: [facility] Therapist's Therapy Appointment Comment: [address], [facility] [address], [place] [address] Finished Hardware Erector Name of Finished Hardware Erector: [facility] Phone Number for Finished Hardware Erector: [phone] Case Management Appointment Comment: Please resume your normal schedule. Post Discharge Appointments Primary Care Physician Name Of Family Doctor/PCP: Kody Dunn Primary Care Time of Appointment with PCP: Please follow-up as needed. Provider Appointment Comment: [address] [place] [address] Engineering Clerk Name of Engineering Clerk: [place] [facility] Peer Phone Number of Engineering Clerk: [phone] Engineering Clerk Appointment Comment: Please resume your normal schedule. Contact Information Discharge Discharge Address: [address] [place] [id number]
[2023-04-27] MEDS: LITHIUM CARBONATE SLOW REL 300 MG TAB PO SCH (21:47)
[2023-04-27] MEDS: cloZAPine 25 MG TAB PO SCH (21:47)
[2023-04-27] MEDS: cloZAPine 100 MG TAB PO SCH (21:47)
--- NOTE | 2023-04-28 12:33 | Psychiatric Progress Note ---
Date of Service April 28, 2023 Impression / Recommendations Impression 27 y/o M resident of personal assisted with exacerbation Schizoaffective Disorder, Bipolar Type due to not taking medications and [place] concerns for possible suicide attempt given recent SI with plans of walking into traffic. He is now on a 304 commitment and is unable to return to his personal assisted. [facility] referral in progress, the [facility] is currently reviewing. No other safe disposition options at this time. Referral in process with [facility] for possible [facility] intensive community bed. [facility] due to hx psychosis with intermittent auditory hallucinations, guarded around peers, cannot tolerate a roommate 04/28/2023: awaiting bed date Plan: continue current meds and tx plan (1) Schizoaffective disorder, bipolar type: Inventory Assets Strengths: voluntary, intelligent Needs: safety and stabilization, medication adjustment Suicide Risk Level Suicide Risk Level: Low (q15 min observation checks) Suicide Risk Level Comments: has chronic suicidal thoughts on which he's never acted Risk Factors Assessment Male: Yes : Yes Do You Have Access To A Gun?: No Health Problems: No Mental Health Diagnoses: Yes Substance Use Disorders: No Previous Attempt: No Family History of Suicide: No Previous Psychiatric Hospitalization: Yes Hopelessness: No Protective Factors Assessment Employed: No Good Rapport with Provider: Yes Interval History Identifying Information NASEEM MCGEE is a 27-year-old M who currently lives in [facility], has a history of Schizoaffective Disorder, Bipolar Type, and was admitted on 03/13/23 14:14 on a 201 voluntary commitment for susanne. He was committed under part 304(c) on 03/17/2023. Chief Complaint awaiting placement Review of Systems Sleep Information Total Hours of Sleep: 6.5 Meal Information Percent Meal Consumed - Breakfast: 0 Percent Meal Consumed - Lunch: 50 Percent Meal Consumed - Dinner: 100 Subjective Subjective Patient was seen & assessed and interval progress reviewed with treatment team. No new issues. [facility] to meet with insurance. Med compliant. Physical Exam Psychiatric alert, cooperative, minimally restless, appears bored at times but denies, likely still aud bernard intermittently Vital Signs (Past 24 Hours) Last Vital Signs Temp 36.5 C 04/28/23 06:48 Pulse 84 04/28/23 06:49 Resp 16 04/28/23 06:48 BP 96/61 L 04/28/23 06:49 Pulse Ox 99 04/21/23 06:00 O2 Del Method Room Air 04/21/23 06:00 Results & Data ([facility]) Current Inpatient Medications Current Inpatient Medications: Current Inpatient Medications Acetaminophen (Acetaminophen 325 Mg Tab) 650 mg PO Q4H PRN PRN Reason: Headache or Minor Fever Stop: 05/19/23 21:17 Al Hydrox/Mg Hydrox/Simethicone (Aluminum/Magnesium Susp 30 Ml Udc) 30 ml PO Q4H PRN PRN Reason: GI Upset Stop: 05/19/23 21:17 Bismuth Subsalicylate (Bismuth Subsalicylate Liqd 236 Ml) 15 ml PO PRN PRN PRN Reason: Loose Stool Stop: 05/19/23 21:17 Clozapine (Clozapine 25 Mg Tab) 50 mg PO HS VIVIAN Stop: 06/08/23 21:59 Last Admin: 04/27/23 21:47 Dose: 50 mg Clozapine (Clozapine 100 Mg Tab) 300 mg PO HS VIVIAN Stop: 06/08/23 21:59 Last Admin: 04/27/23 21:47 Dose: 300 mg Docusate Sodium (Docusate Sodium 100 Mg Cap) 100 mg PO BID PRN PRN Reason: Constipation Stop: 05/20/23 08:59 Haloperidol Decanoate (Haloperidol Decanoate Inj 50 Mg/Ml Vial) 25 mg IM Q28D VIVIAN Stop: 05/08/23 17:29 Last Admin: 04/08/23 18:38 Dose: 25 mg Hydroxyzine HCl (Hydroxyzine Hcl 25 Mg Tab) 50 mg PO HSZ PRN PRN Reason: Insomnia Stop: 05/19/23 21:17 Hydroxyzine HCl (Hydroxyzine Hcl 25 Mg Tab) 25 mg PO Q4H PRN PRN Reason: Anxiety Stop: 05/19/23 21:17 [place] Carbonate ([place] Carbonate Slow Rel 300 Mg Tab) 1,500 mg PO HS VIVIAN Stop: 06/08/23 21:59 Last Admin: 04/27/23 21:47 Dose: 1,500 mg Magnesium Hydroxide (Magnesium Hydroxide Susp 30 Ml Udc) 30 ml PO DAILY PRN PRN Reason: Constipation Stop: 05/19/23 21:17 Sodium Chloride (Sodium Chloride 0.65% Na Soln 45 Ml ([place])) 1 - 2 sprays NA PRN PRN PRN Reason: Nasal Dryness/Congestion Stop: 05/19/23 21:17 Mental Health & Subst Abuse Tx Psychiatrist Name of Psychiatrist: Kody Rogers Psychiatrist's Time of Appointment with Psychiatrist: Please follow-up as needed. Psychiatric Appointment Comment: [address] [place] [address] Therapist Name of Therapist: [facility] [place] Therapist's Therapy Appointment Comment: [address], [address], [place] [address] Staff Development Coordinator Name of Staff Development Coordinator: [facility] [place] Phone Number for Staff Development Coordinator: [phone] Case Management Appointment Comment: Please resume your normal schedule. Post Discharge Appointments Primary Care Physician Name Of Family Doctor/PCP: Kody Dunn [facility] Time of Appointment with PCP: Please follow-up as needed. Provider Appointment Comment: [address] [place] [address] Fire Safety Manager Name of Fire Safety Manager: [facility] Peer Phone Number of Fire Safety Manager: [phone] Fire Safety Manager Appointment Comment: Please resume your normal schedule. Contact Information Discharge Discharge Address: [address] [place] [id number]
[2023-04-28] MEDS: cloZAPine 25 MG TAB PO SCH (21:19)
[2023-04-28] MEDS: LITHIUM CARBONATE SLOW REL 300 MG TAB PO SCH (21:19)
[2023-04-28] MEDS: cloZAPine 100 MG TAB PO SCH (21:19)
--- NOTE | 2023-04-29 12:06 | Psychiatric Progress Note ---
Date of Service April 29, 2023 Impression / Recommendations Impression 27 y/o M resident of personal intermediate with exacerbation Schizoaffective Disorder, Bipolar Type due to not taking medications and [place] concerns for possible suicide attempt given recent SI with plans of walking into traffic. He is now on a 304 commitment and is unable to return to his personal intermediate. [facility] referral in progress, the [facility] is currently reviewing. No other safe disposition options at this time. Referral in process with [facility] for [facility]. [facility] due to hx psychosis with intermittent auditory hallucinations, guarded around peers, cannot tolerate a roommate 04/29/2023: reviewed interim progress per Dr. Elliott, awaiting bed date for disposition for longer-term extended stay placement Plan: continue current meds and tx plan (1) Schizoaffective disorder, bipolar type: Plan 04/21/2023: Continue current medications and tx plan. 04/20/2023: Continue current medications and tx plan. Safe disposition placement/treatment options ongoing 04/19/2023: Continue current medications and tx plan. 04/18/2023: Continue current medications and tx plan. 04/17/2023: Continue with current medications and tx plan. ANC stable. 04/16/2023: Continue current medications and tx plan. 04/15/2023: Continue current medications and tx plan. 04/14/2023: (no change in plan) * continue lithium 1,500 mg QHS * continue clozapine 350 mg QHS * continue haloperidol decanoate 25 mg IM Q4 Wk; most recent dose * continue work towards identifying appropriate outpatient/residential placement 04/13/2023: (no change in plan) * continue lithium 1,500 mg QHS * continue clozapine 350 mg QHS * continue haloperidol decanoate 25 mg IM Q4 Wk; most recent dose * continue work towards identifying appropriate outpatient/residential placement 04/12/2023: (no change in plan) * continue lithium 1,500 mg QHS * continue clozapine 350 mg QHS * continue haloperidol decanoate 25 mg IM Q4 Wk; most recent dose * continue work towards identifying appropriate outpatient/residential placement 04/11/2023: (no change in plan) * continue lithium 1,500 mg QHS * continue clozapine 350 mg QHS * continue haloperidol decanoate 25 mg IM Q4 Wk; most recent dose * has no safe placement available but otherwise appropriate for discharge 04/10/2023: * consolidate lithium to 1,500 mg QHS * continue clozapine 350 mg QHS * continue haloperidol decanoate 25 mg IM Q4 Wk; most recent dose * has no safe placement available 04/09/2023: (no change in plan) * continue lithium 600 mg QAM & 900 mg QHS - most recent level 1.0 mmol/L on 03/17/2023; consider consolidation to 1,500 mg QHS * continue clozapine 350 mg QHS * continue haloperidol decanoate 25 mg IM Q4 Wk; most recent dose * has no safe placement available 04/08/2023: * discontinue aripiprazole lauroxil (next dose due tomorrow) * start haloperidol decanoate 25 mg IM Q4 Wk * Continue clozapine 350 mg QHS * Continue lithium 600 mg QAM & 900 mg QHS - most recent level 1.0 mmol/L on 03/17/2023; consider consolidation to 1,500 mg QHS * At this point scant need for [facility] seen, yet has no place to go 04/07/2023: Continue current medications and tx plan. 04/06/2023: Discussed option to consider haldol if interested instead of abilify for next JOSHI, he will consider this (given prior positive response to clozapine and haldol combination) 04/05/2023: Continue with current medications and tx plan. 04/04/2023: Continue with current medications and tx plan. 04/03/2023: Continue with current medications and tx plan. 04/02/2023: Continue with current medications and tx plan. 04/01/2023: Continue with current medications and tx plan. 03/31/2023: diversion meeting completed. next lab draw 04/03/23. 03/25/2023: tolerating consolidation of clozaril to hs. 03/24/2023: Continue with current medications and tx plan. 03/23/2023: Continue with current medications and tx plan. 03/22/2023: Clozapine 350mg HS, continue other current medications 03/21/2023: Consolidate clozapine to 350mg HS starting tomorrow. 03/20/2023: Continue current medications and tx plan. 03/19/2023: Continue current medications and tx plan. CBC with ANC tomorrow. 03/18/2023: Continue current medications and tx plan. Will plan to consider augmentation with haldol once abilify JOSHI effects have waned over the next few weeks. 03/17/2023: * continue LiCO3 600 mg QAM & 900 mg QHS, anticipate consolidating to 1500 mg QHS starting tomorrow * continue clozapine 100 mg QAM & 250 mg QHS, consider consolidating to 350 mg QHS * discontinue aripiprazole lauroxil 400 mg IM monthly, last given 10 March 2023 (so will remain at significant level for several more weeks) * anticipate adding haloperidol, but at this point that would constitute 3 concurrent antipsychotics 03/16/2023: * continue LiCO3 600 mg QAM & 900 mg QHS, consider consolidating to 1500 mg QHS * recheck lithium level tomorrow * continue clozapine 100 mg QAM & 250 mg QHS, consider consolidating to 350 mg QHS * discontinue aripiprazole lauroxil 400 mg IM monthly, last given 10 March 2023 * anticipate adding haloperidol, but at this point that would constitute 3 concurrent antipsychotics * completed [place] form MH 785 for part 304(c) "involuntary" treatment at the [facility] 03/15/2023: * continue LiCO3 600 mg QAM & 900 mg QHS, consider consolidating to 1500 mg QHS * recheck lithium level in 2 days * continue clozapine 100 mg QAM & 250 mg QHS, consider consolidating to 350 mg QHS * discontinue aripiprazole lauroxil 400 mg IM monthly, last given 10 March 2023 * discontinue aripiprazole 5 mg daily 03/14/2023: The patient was admitted to the [facility] on q15 min checks (behavioral with suicide precautions) for safety. The patient will participate in group, recreational, and milieu therapies and will be offered additional individual and family sessions as clinically appropriate. Pt was recently started on aripiprazole lauroxil. Since his record indicates a failed trial of oral aripiprazole in the past, I will be circumspect about discontinuing clozapine at this time. * continue LiCO3 600 mg QAM & 900 mg QHS * continue clozapine 100 mg QAM & 250 mg QHS for the time being * continue aripiprazole lauroxil 400 mg IM monthly, next due 09 April 2023 * continue aripiprazole 5 mg daily Inventory Assets Strengths: voluntary, intelligent Needs: safety and stabilization, medication adjustment Suicide Risk Level Suicide Risk Level: Low (q15 min observation checks) (consistently denying SI) Suicide Risk Level Comments: has chronic suicidal thoughts on which he's never acted Risk Factors Assessment Male: Yes : Yes Do You Have Access To A Gun?: No Health Problems: No Mental Health Diagnoses: Yes Substance Use Disorders: No Previous Attempt: No Family History of Suicide: No Previous Psychiatric Hospitalization: Yes Hopelessness: No Protective Factors Assessment Employed: No Good Rapport with Provider: Yes Interval History Identifying Information NASEEM MCGEE is a 27-year-old M who currently lives in [facility], has a history of Schizoaffective Disorder, Bipolar Type, and was admitted on 03/13/23 14:14 on a 201 voluntary commitment for susanne. He was committed under part 304(c) on 03/17/2023. Chief Complaint "Pretty good". Review of Systems Sleep Information Total Hours of Sleep: 6.75 Meal Information Percent Meal Consumed - Breakfast: 0 Percent Meal Consumed - Lunch: 100 Percent Meal Consumed - Dinner: 100 Subjective Subjective Patient was seen & assessed and interval progress reviewed with treatment team nursing and social work, Reports stable mood. Denies any concerns/questions. Tolerating medications. Likes walking in the hallway. Physical Exam Psychiatric Orientation: alert, oriented to person, oriented to place, oriented to time and cooperative Apperance: appropriately dressed and appropriately groomed Eye Contact: + fair eye contact Motor Behavior: + psychomotor agitation (walking most of the day) Speech: normal rate/rhythm/volume of speech (offering more episodes of brief spontaneous conversation at times) Affect: + flat affect Mood: no depressed mood and no anxious mood Thought Process: + concrete thought process Thought Content: reality based without delusions Suicidal Thoughts: denies suicidal thoughts, denies suicidal plan and denies suicidal intent Homicidal Thoughts: denies homicidal thoughts Hallucinations: + auditory hallucinations (responds throughout the day); no visual hallucinations and no tactile hallucinations Cognition: recent memory grossly intact, remote memory grossly intact, attention grossly intact and language grossly intact Estimated Intelligence: average estimated intelligence and consistent with education level Insight: + fair insight Judgment: + limited judgement Vital Signs (Past 24 Hours) Last Vital Signs Temp 36.9 C 04/29/23 06:25 Pulse 97 H 04/29/23 06:26 Resp 16 04/29/23 06:25 BP 120/71 04/29/23 06:26 Pulse Ox 99 04/21/23 06:00 O2 Del Method Room Air 04/21/23 06:00 Results & Data ([facility]) Current Inpatient Medications Current Inpatient Medications: Current Inpatient Medications Acetaminophen (Acetaminophen 325 Mg Tab) 650 mg PO Q4H PRN PRN Reason: Headache or Minor Fever Stop: 05/19/23 21:17 Al Hydrox/Mg Hydrox/Simethicone (Aluminum/Magnesium Susp 30 Ml Udc) 30 ml PO Q4H PRN PRN Reason: GI Upset Stop: 05/19/23 21:17 Bismuth Subsalicylate (Bismuth Subsalicylate Liqd 236 Ml) 15 ml PO PRN PRN PRN Reason: Loose Stool Stop: 05/19/23 21:17 Clozapine (Clozapine 25 Mg Tab) 50 mg PO HS VIVIAN Stop: 06/08/23 21:59 Last Admin: 04/28/23 21:19 Dose: 50 mg Clozapine (Clozapine 100 Mg Tab) 300 mg PO HS VIVIAN Stop: 06/08/23 21:59 Last Admin: 04/28/23 21:19 Dose: 300 mg Docusate Sodium (Docusate Sodium 100 Mg Cap) 100 mg PO BID PRN PRN Reason: Constipation Stop: 05/20/23 08:59 Haloperidol Decanoate (Haloperidol Decanoate Inj 50 Mg/Ml Vial) 25 mg IM Q28D VIVIAN Stop: 05/08/23 17:29 Last Admin: 04/08/23 18:38 Dose: 25 mg Hydroxyzine HCl (Hydroxyzine Hcl 25 Mg Tab) 50 mg PO HSZ PRN PRN Reason: Insomnia Stop: 05/19/23 21:17 Hydroxyzine HCl (Hydroxyzine Hcl 25 Mg Tab) 25 mg PO Q4H PRN PRN Reason: Anxiety Stop: 05/19/23 21:17 [place] Carbonate ([place] Carbonate Slow Rel 300 Mg Tab) 1,500 mg PO HS VIVIAN Stop: 06/08/23 21:59 Last Admin: 04/28/23 21:19 Dose: 1,500 mg Magnesium Hydroxide (Magnesium Hydroxide Susp 30 Ml Udc) 30 ml PO DAILY PRN PRN Reason: Constipation Stop: 05/19/23 21:17 Sodium Chloride (Sodium Chloride 0.65% Na Soln 45 Ml ([place])) 1 - 2 sprays NA PRN PRN PRN Reason: Nasal Dryness/Congestion Stop: 05/19/23 21:17 Mental Health & Subst Abuse Tx Psychiatrist Name of Psychiatrist: Kody Rogers Psychiatrist's Time of Appointment with Psychiatrist: Please follow-up as needed. Psychiatric Appointment Comment: [address] [place] [address] Therapist Name of Therapist: [facility] [place] Therapist's Therapy Appointment Comment: [address], [address], [place] [address] Customer Sales Consultant Name of Customer Sales Consultant: [facility] Phone Number for Customer Sales Consultant: [phone] Case Management Appointment Comment: Please resume your normal schedule. Post Discharge Appointments Primary Care Physician Name Of Family Doctor/PCP: Kody Dunn [facility] Time of Appointment with PCP: Please follow-up as needed. Provider Appointment Comment: [address] [place] [address] Copyist Name of Copyist: [facility] Peer Phone Number of Copyist: [phone] Copyist Appointment Comment: Please resume your normal schedule. Contact Information Discharge Discharge Address: [address] [place] [id number]
[2023-04-29] MEDS: cloZAPine 25 MG TAB PO SCH (21:03)
[2023-04-29] MEDS: LITHIUM CARBONATE SLOW REL 300 MG TAB PO SCH (21:04)
[2023-04-29] MEDS: cloZAPine 100 MG TAB PO SCH (21:04)
--- NOTE | 2023-04-30 09:39 | Psychiatric Progress Note ---
Date of Service April 30, 2023 Impression / Recommendations Impression 27 y/o M resident of personal retirement with exacerbation Schizoaffective Disorder, Bipolar Type due to not taking medications [place] concerns for possible suicide attempt given recent SI with plans of walking into traffic. He is now on a 304 commitment and is unable to return to his personal retirement. [facility] referral in progress, the [facility] is currently reviewing. No other safe disposition options at this time. Referral in process with [facility] for possible [facility] intensive community bed. [facility] due to hx psychosis with intermittent auditory hallucinations, guarded around peers, cannot tolerate a roommate 04/30/2023: no mood changes, slightly more interactive with parents and staff at times, awaiting bed date for disposition for longer-term extended stay placement Plan: continue current meds and tx plan with CBC with ANC tomorrow (1) Schizoaffective disorder, bipolar type: Plan 04/21/2023: Continue current medications and tx plan. 04/20/2023: Continue current medications and tx plan. Safe disposition placement/treatment options ongoing 04/19/2023: Continue current medications and tx plan. 04/18/2023: Continue current medications and tx plan. 04/17/2023: Continue with current medications and tx plan. ANC stable. 04/16/2023: Continue current medications and tx plan. 04/15/2023: Continue current medications and tx plan. 04/14/2023: (no change in plan) * continue lithium 1,500 mg QHS * continue clozapine 350 mg QHS * continue haloperidol decanoate 25 mg IM Q4 Wk; most recent dose * continue work towards identifying appropriate outpatient/residential placement 04/13/2023: (no change in plan) * continue lithium 1,500 mg QHS * continue clozapine 350 mg QHS * continue haloperidol decanoate 25 mg IM Q4 Wk; most recent dose * continue work towards identifying appropriate outpatient/residential placement 04/12/2023: (no change in plan) * continue lithium 1,500 mg QHS * continue clozapine 350 mg QHS * continue haloperidol decanoate 25 mg IM Q4 Wk; most recent dose * continue work towards identifying appropriate outpatient/residential placement 04/11/2023: (no change in plan) * continue lithium 1,500 mg QHS * continue clozapine 350 mg QHS * continue haloperidol decanoate 25 mg IM Q4 Wk; most recent dose * has no safe placement available but otherwise appropriate for discharge 04/10/2023: * consolidate lithium to 1,500 mg QHS * continue clozapine 350 mg QHS * continue haloperidol decanoate 25 mg IM Q4 Wk; most recent dose * has no safe placement available 04/09/2023: (no change in plan) * continue lithium 600 mg QAM & 900 mg QHS - most recent level 1.0 mmol/L on 03/17/2023; consider consolidation to 1,500 mg QHS * continue clozapine 350 mg QHS * continue haloperidol decanoate 25 mg IM Q4 Wk; most recent dose * has no safe placement available 04/08/2023: * discontinue aripiprazole lauroxil (next dose due tomorrow) * start haloperidol decanoate 25 mg IM Q4 Wk * Continue clozapine 350 mg QHS * Continue lithium 600 mg QAM & 900 mg QHS - most recent level 1.0 mmol/L on 03/17/2023; consider consolidation to 1,500 mg QHS * At this point scant need for [facility] seen, yet has no place to go 04/07/2023: Continue current medications and tx plan. 04/06/2023: Discussed option to consider haldol if interested instead of abilify for next JOSHI, he will consider this (given prior positive response to clozapine and haldol combination) 04/05/2023: Continue with current medications and tx plan. 04/04/2023: Continue with current medications and tx plan. 04/03/2023: Continue with current medications and tx plan. 04/02/2023: Continue with current medications and tx plan. 04/01/2023: Continue with current medications and tx plan. 03/31/2023: diversion meeting completed. next lab draw 04/03/23. 03/25/2023: tolerating consolidation of clozaril to hs. 03/24/2023: Continue with current medications and tx plan. 03/23/2023: Continue with current medications and tx plan. 03/22/2023: Clozapine 350mg HS, continue other current medications 03/21/2023: Consolidate clozapine to 350mg HS starting tomorrow. 03/20/2023: Continue current medications and tx plan. 03/19/2023: Continue current medications and tx plan. CBC with ANC tomorrow. 03/18/2023: Continue current medications and tx plan. Will plan to consider augmentation with haldol once abilify JOSHI effects have waned over the next few weeks. 03/17/2023: * continue LiCO3 600 mg QAM & 900 mg QHS, anticipate consolidating to 1500 mg QHS starting tomorrow * continue clozapine 100 mg QAM & 250 mg QHS, consider consolidating to 350 mg QHS * discontinue aripiprazole lauroxil 400 mg IM monthly, last given 10 March 2023 (so will remain at significant level for several more weeks) * anticipate adding haloperidol, but at this point that would constitute 3 concurrent antipsychotics 03/16/2023: * continue LiCO3 600 mg QAM & 900 mg QHS, consider consolidating to 1500 mg QHS * recheck lithium level tomorrow * continue clozapine 100 mg QAM & 250 mg QHS, consider consolidating to 350 mg QHS * discontinue aripiprazole lauroxil 400 mg IM monthly, last given 10 March 2023 * anticipate adding haloperidol, but at this point that would constitute 3 concurrent antipsychotics * completed [place] form 785 for part 304(c) "involuntary" treatment at the [facility] 03/15/2023: * continue LiCO3 600 mg QAM & 900 mg QHS, consider consolidating to 1500 mg QHS * recheck lithium level in 2 days * continue clozapine 100 mg QAM & 250 mg QHS, consider consolidating to 350 mg QHS * discontinue aripiprazole lauroxil 400 mg IM monthly, last given 10 March 2023 * discontinue aripiprazole 5 mg daily 03/14/2023: The patient was admitted to the [facility] ([facility] inpatient mental health unit) on q15 min checks (behavioral with suicide precautions) for safety. The patient will participate in group, recreational, and milieu therapies and will be offered additional individual and family sessions as clinically appropriate. Pt was recently started on aripiprazole lauroxil. Since his record indicates a failed trial of oral aripiprazole in the past, I will be circumspect about discontinuing clozapine at this time. * continue LiCO3 600 mg QAM & 900 mg QHS * continue clozapine 100 mg QAM & 250 mg QHS for the time being * continue aripiprazole lauroxil 400 mg IM monthly, next due 09 April 2023 * continue aripiprazole 5 mg daily Inventory Assets Strengths: voluntary, intelligent Needs: safety and stabilization, medication adjustment Suicide Risk Level Suicide Risk Level: Low (q15 min observation checks) (consistently denying SI) Suicide Risk Level Comments: has chronic suicidal thoughts on which he's never acted Risk Factors Assessment Male: Yes : Yes Do You Have Access To A Gun?: No Health Problems: No Mental Health Diagnoses: Yes Substance Use Disorders: No Previous Attempt: No Family History of Suicide: No Previous Psychiatric Hospitalization: Yes Hopelessness: No Protective Factors Assessment Employed: No Good Rapport with Provider: Yes Interval History Identifying Information NASEEM MCGEE is a 27-year-old M who currently lives in [facility], has a history of Schizoaffective Disorder, Bipolar Type, and was admitted on 03/13/23 14:14 on a 201 voluntary commitment for susanne. He was committed under part 304(c) on 03/17/2023. Chief Complaint "I'm good". Review of Systems Sleep Information Total Hours of Sleep: 7 Meal Information Percent Meal Consumed - Breakfast: 25 Percent Meal Consumed - Lunch: 50 Percent Meal Consumed - Dinner: 100 Subjective Subjective Patient was seen & assessed and interval progress reviewed with treatment team nursing and social work. Attending community meetings. Walking in the halls. States mood is "good". Denies any medication side effects. Visited with his parents and felt this went well. Physical Exam Psychiatric Orientation: alert, oriented to person, oriented to place, oriented to time and cooperative Apperance: appropriately dressed and appropriately groomed Eye Contact: + fair eye contact Motor Behavior: + psychomotor agitation (walking most of the day) Speech: normal rate/rhythm/volume of speech (offering more episodes of brief spontaneous conversation at times) Affect: + flat affect Mood: no depressed mood and no anxious mood Thought Process: + concrete thought process Thought Content: reality based without delusions Suicidal Thoughts: denies suicidal thoughts, denies suicidal plan and denies suicidal intent Homicidal Thoughts: denies homicidal thoughts Hallucinations: + auditory hallucinations (responds throughout the day); no visual hallucinations and no tactile hallucinations Cognition: recent memory grossly intact, remote memory grossly intact, attention grossly intact and language grossly intact Estimated Intelligence: average estimated intelligence and consistent with education level Insight: + fair insight Judgment: + limited judgement Vital Signs (Past 24 Hours) Last Vital Signs Temp 36.8 C 04/30/23 06:00 Pulse 63 04/30/23 06:00 Resp 18 04/30/23 06:00 BP 103/70 04/30/23 06:45 Pulse Ox 98 04/30/23 06:00 O2 Del Method Room Air 04/30/23 06:00 Results & Data ([facility]) Current Inpatient Medications Current Inpatient Medications: Current Inpatient Medications Acetaminophen (Acetaminophen 325 Mg Tab) 650 mg PO Q4H PRN PRN Reason: Headache or Minor Fever Stop: 05/19/23 21:17 Al Hydrox/Mg Hydrox/Simethicone (Aluminum/Magnesium Susp 30 Ml Udc) 30 ml PO Q4H PRN PRN Reason: GI Upset Stop: 05/19/23 21:17 Bismuth Subsalicylate (Bismuth Subsalicylate Liqd 236 Ml) 15 ml PO PRN PRN PRN Reason: Loose Stool Stop: 05/19/23 21:17 Clozapine (Clozapine 25 Mg Tab) 50 mg PO HS VIVIAN Stop: 06/08/23 21:59 Last Admin: 04/29/23 21:03 Dose: 50 mg Clozapine (Clozapine 100 Mg Tab) 300 mg PO HS VIVIAN Stop: 06/08/23 21:59 Last Admin: 04/29/23 21:04 Dose: 300 mg Docusate Sodium (Docusate Sodium 100 Mg Cap) 100 mg PO BID PRN PRN Reason: Constipation Stop: 05/20/23 08:59 Haloperidol Decanoate (Haloperidol Decanoate Inj 50 Mg/Ml Vial) 25 mg IM Q28D VIVIAN Stop: 05/08/23 17:29 Last Admin: 04/08/23 18:38 Dose: 25 mg Hydroxyzine HCl (Hydroxyzine Hcl 25 Mg Tab) 50 mg PO HSZ PRN PRN Reason: Insomnia Stop: 05/19/23 21:17 Hydroxyzine HCl (Hydroxyzine Hcl 25 Mg Tab) 25 mg PO Q4H PRN PRN Reason: Anxiety Stop: 05/19/23 21:17 [place] Carbonate ([place] Carbonate Slow Rel 300 Mg Tab) 1,500 mg PO HS VIVIAN Stop: 06/08/23 21:59 Last Admin: 04/29/23 21:04 Dose: 1,500 mg Magnesium Hydroxide (Magnesium Hydroxide Susp 30 Ml Udc) 30 ml PO DAILY PRN PRN Reason: Constipation Stop: 05/19/23 21:17 Sodium Chloride (Sodium Chloride 0.65% Na Soln 45 Ml ([place])) 1 - 2 sprays NA PRN PRN PRN Reason: Nasal Dryness/Congestion Stop: 05/19/23 21:17 Mental Health & Subst Abuse Tx Psychiatrist Name of Psychiatrist: Kody Rogers Psychiatrist's Time of Appointment with Psychiatrist: Please follow-up as needed. Psychiatric Appointment Comment: [address] [place] [address] Therapist Name of Therapist: Cheko [place] - [facility] Therapist's Therapy Appointment Comment: [address], [facility] [address], [place] [address] Ornamental Iron Worker Apprentice Name of Ornamental Iron Worker Apprentice: [facility] Phone Number for Ornamental Iron Worker Apprentice: [phone] Case Management Appointment Comment: Please resume your normal schedule. Post Discharge Appointments Primary Care Physician Name Of Family Doctor/PCP: Kody Dunn [facility] Time of Appointment with PCP: Please follow-up as needed. Provider Appointment Comment: [address] [place] [address] Housekeeper Supervisor Name of Housekeeper Supervisor: [facility] Peer Phone Number of Housekeeper Supervisor: [phone] Housekeeper Supervisor Appointment Comment: Please resume your normal schedule. Contact Information Discharge Discharge Address: [address] [place] [id number]
[2023-04-30] MEDS: LITHIUM CARBONATE SLOW REL 300 MG TAB PO SCH (20:52)
[2023-04-30] MEDS: cloZAPine 25 MG TAB PO SCH (20:52)
[2023-04-30] MEDS: cloZAPine 100 MG TAB PO SCH (20:53)
[2023-05-01 08:07] LABS: Basophils # (auto) 0.09 K/uL (0-0.2); Basophils % (auto) 0.8 %; Eosinophils # (auto) 0.36 K/uL (0-0.50); Hematocrit (blood only) 47.8 % (42.0-52.0); Hemoglobin 15.5 g/dl (14.0-18.0); Immature Granulocytes # (auto) 0.08 K/uL (0.01-0.20); Immature Granulocytes % (auto) 0.7 %; Lymphocytes # (auto) 2.97 K/uL (1.2-3.4); Lymphocytes % (auto) 24.9 %; Mean Corpuscular Hemoglobin 27.3 pg (25.0-34.0); Mean Corpuscular Hgb Conc 32.4 g/dL (32.0-36.0); Mean Corpuscular Volume 84.2 fL (80.0-100.0); Mean Platelet Volume 10.2 fL (9.4-12.4); Monocytes # (auto) 0.89 K/uL (0.11-0.59); Monocytes % (auto) 7.5 %; Neutrophils # (auto) 7.53 K/uL (1.40-6.50); Neutrophils % (auto) 63.1 %; Platelet Count 341 K/uL (130-400); RDW Coefficient of Variation 13.8 % (11.5-14.5); RDW Standard Deviation 42.5 fL (36.4-46.3); Red Blood Count 5.68 M/uL (4.70-6.10); White Blood Count 11.92 K/ul (4.8-10.8)
--- NOTE | 2023-05-01 09:14 | Psychiatric Progress Note ---
Date of Service May 01, 2023 Impression / Recommendations Impression 27 y/o M resident of personal residential with exacerbation Schizoaffective Disorder, Bipolar Type due to not taking medications [place] concerns for possible suicide attempt given recent SI with plans of walking into traffic. He is now on a 304 commitment and is unable to return to his personal residential. [facility] referral in progress, the [facility] is currently reviewing. No other safe disposition options at this time. Referral in process with [facility] for possible [facility] intensive community bed. [facility] due to hx psychosis with intermittent auditory hallucinations, guarded around peers, cannot tolerate a roommate 05/01/2023: mood stable, ongoing internal stimuli, reviewed CBC and ANC stable for ongoing use of clozapine, awaiting bed date for disposition for longer-term extended stay placement Plan: continue current meds and tx plan (1) Schizoaffective disorder, bipolar type: Plan 04/21/2023: Continue current medications and tx plan. 04/20/2023: Continue current medications and tx plan. Safe disposition placement/treatment options ongoing 04/19/2023: Continue current medications and tx plan. 04/18/2023: Continue current medications and tx plan. 04/17/2023: Continue with current medications and tx plan. ANC stable. 04/16/2023: Continue current medications and tx plan. 04/15/2023: Continue current medications and tx plan. 04/14/2023: (no change in plan) * continue lithium 1,500 mg QHS * continue clozapine 350 mg QHS * continue haloperidol decanoate 25 mg IM Q4 Wk; most recent dose * continue work towards identifying appropriate outpatient/residential placement 04/13/2023: (no change in plan) * continue lithium 1,500 mg QHS * continue clozapine 350 mg QHS * continue haloperidol decanoate 25 mg IM Q4 Wk; most recent dose * continue work towards identifying appropriate outpatient/residential placement 04/12/2023: (no change in plan) * continue lithium 1,500 mg QHS * continue clozapine 350 mg QHS * continue haloperidol decanoate 25 mg IM Q4 Wk; most recent dose * continue work towards identifying appropriate outpatient/residential placement 04/11/2023: (no change in plan) * continue lithium 1,500 mg QHS * continue clozapine 350 mg QHS * continue haloperidol decanoate 25 mg IM Q4 Wk; most recent dose * has no safe placement available but otherwise appropriate for discharge 04/10/2023: * consolidate lithium to 1,500 mg QHS * continue clozapine 350 mg QHS * continue haloperidol decanoate 25 mg IM Q4 Wk; most recent dose * has no safe placement available 04/09/2023: (no change in plan) * continue lithium 600 mg QAM & 900 mg QHS - most recent level 1.0 mmol/L on 03/17/2023; consider consolidation to 1,500 mg QHS * continue clozapine 350 mg QHS * continue haloperidol decanoate 25 mg IM Q4 Wk; most recent dose * has no safe placement available 04/08/2023: * discontinue aripiprazole lauroxil (next dose due tomorrow) * start haloperidol decanoate 25 mg IM Q4 Wk * Continue clozapine 350 mg QHS * Continue lithium 600 mg QAM & 900 mg QHS - most recent level 1.0 mmol/L on 03/17/2023; consider consolidation to 1,500 mg QHS * At this point scant need for [facility] hospital seen, yet has no place to go 04/07/2023: Continue current medications and tx plan. 04/06/2023: Discussed option to consider haldol if interested instead of abilify for next JOSHI, he will consider this (given prior positive response to clozapine and haldol combination) 04/05/2023: Continue with current medications and tx plan. 04/04/2023: Continue with current medications and tx plan. 04/03/2023: Continue with current medications and tx plan. 04/02/2023: Continue with current medications and tx plan. 04/01/2023: Continue with current medications and tx plan. 03/31/2023: diversion meeting completed. next lab draw 04/03/23. 03/25/2023: tolerating consolidation of clozaril to hs. 03/24/2023: Continue with current medications and tx plan. 03/23/2023: Continue with current medications and tx plan. 03/22/2023: Clozapine 350mg HS, continue other current medications 03/21/2023: Consolidate clozapine to 350mg HS starting tomorrow. 03/20/2023: Continue current medications and tx plan. 03/19/2023: Continue current medications and tx plan. CBC with ANC tomorrow. 03/18/2023: Continue current medications and tx plan. Will plan to consider augmentation with haldol once abilify JOSHI effects have waned over the next few weeks. 03/17/2023: * continue LiCO3 600 mg QAM & 900 mg QHS, anticipate consolidating to 1500 mg QHS starting tomorrow * continue clozapine 100 mg QAM & 250 mg QHS, consider consolidating to 350 mg QHS * discontinue aripiprazole lauroxil 400 mg IM monthly, last given 10 March 2023 (so will remain at significant level for several more weeks) * anticipate adding haloperidol, but at this point that would constitute 3 concurrent antipsychotics 03/16/2023: * continue LiCO3 600 mg QAM & 900 mg QHS, consider consolidating to 1500 mg QHS * recheck lithium level tomorrow * continue clozapine 100 mg QAM & 250 mg QHS, consider consolidating to 350 mg QHS * discontinue aripiprazole lauroxil 400 mg IM monthly, last given 10 March 2023 * anticipate adding haloperidol, but at this point that would constitute 3 concurrent antipsychotics * completed [place] form 785 for part 304(c) "involuntary" treatment at the [facility] 03/15/2023: * continue LiCO3 600 mg QAM & 900 mg QHS, consider consolidating to 1500 mg QHS * recheck lithium level in 2 days * continue clozapine 100 mg QAM & 250 mg QHS, consider consolidating to 350 mg QHS * discontinue aripiprazole lauroxil 400 mg IM monthly, last given 10 March 2023 * discontinue aripiprazole 5 mg daily 03/14/2023: The patient was admitted to the [facility] on q15 min checks (behavioral with suicide precautions) for safety. The patient will participate in group, recreational, and milieu therapies and will be offered additional individual and family sessions as clin ically appropriate. Pt was recently started on aripiprazole lauroxil. Since his record indicates a failed trial of oral aripiprazole in the past, I will be circumspect about discontinuing clozapine at this time. * continue LiCO3 600 mg QAM & 900 mg QHS * continue clozapine 100 mg QAM & 250 mg QHS for the time being * continue aripiprazole lauroxil 400 mg IM monthly, next due 09 April 2023 * continue aripiprazole 5 mg daily Inventory Assets Strengths: voluntary, intelligent Needs: safety and stabilization, medication adjustment Suicide Risk Level Suicide Risk Level: Low (q15 min observation checks) (consistently denying SI) Suicide Risk Level Comments: has chronic suicidal thoughts on which he's never acted Risk Factors Assessment Male: Yes : Yes Do You Have Access To A Gun?: No Health Problems: No Mental Health Diagnoses: Yes Substance Use Disorders: No Previous Attempt: No Family History of Suicide: No Previous Psychiatric Hospitalization: Yes Hopelessness: No Protective Factors Assessment Employed: No Good Rapport with Provider: Yes Interval History Identifying Information NASEEM MCGEE is a 27-year-old M who currently lives in [facility], has a history of Schizoaffective Disorder, Bipolar Type, and was admitted on 03/13/23 14:14 on a 201 voluntary commitment for susanne. He was committed under part 304(c) on 03/17/2023. Chief Complaint "Pretty good". Review of Systems Sleep Information Total Hours of Sleep: 7 Meal Information Percent Meal Consumed - Breakfast: 100 Percent Meal Consumed - Lunch: 100 Percent Meal Consumed - Dinner: 100 Subjective Subjective Patient was seen & assessed and interval progress reviewed with treatment team nursing and social work. Enjoyed going outside with staff. Slight dizziness this morning but improving and did not interfere with him walking outside and he didn't feel it got worse while out in the heat and sun. Reviewed ANC results which are reassuring. Physical Exam Psychiatric Orientation: alert, oriented to person, oriented to place, oriented to time and cooperative Apperance: appropriately dressed and appropriately groomed Eye Contact: + fair eye contact Motor Behavior: + psychomotor agitation (walking most of the day) Speech: normal rate/rhythm/volume of speech (offering more episodes of brief spontaneous conversation at times) Affect: + flat affect Mood: no depressed mood and no anxious mood Thought Process: + concrete thought process Thought Content: reality based without delusions Suicidal Thoughts: denies suicidal thoughts, denies suicidal plan and denies suicidal intent Homicidal Thoughts: denies homicidal thoughts Hallucinations: + auditory hallucinations (responds throughout the day); no visu al hallucinations and no tactile hallucinations Cognition: recent memory grossly intact, remote memory grossly intact, attention grossly intact and language grossly intact Estimated Intelligence: average estimated intelligence and consistent with education level Insight: + fair insight Judgment: + limited judgement Vital Signs (Past 24 Hours) Last Vital Signs Temp 36.7 C 05/01/23 06:00 Pulse 69 05/01/23 06:00 Resp 18 05/01/23 06:00 BP 103/68 05/01/23 06:46 Pulse Ox 99 05/01/23 06:00 O2 Del Method Room Air 05/01/23 06:00 Results & Data ([facility]) Laboratory Results Laboratory Results - last 24 hr 05/01/23 07:39 WBC 11.92 H RBC 5.68 Hgb 15.5 Hct 47.8 MCV 84.2 MCH 27.3 MCHC 32.4 RDW Std Deviation 42.5 RDW Coeff of Bel[place] 13.8 Plt Count 341 MPV 10.2 Immature Gran % (Auto) 0.7 Neut % (Auto) 63.1 Lymph % (Auto) 24.9 [place] % (Auto) 7.5 Eos % (Auto) 3.0 Baso % (Auto) 0.8 Neut # (Auto) 7.53 H Lymph # (Auto) 2.97 [place] # (Auto) 0.89 H Eos # (Auto) 0.36 Baso # (Auto) 0.09 Immature Gran # (Auto) 0.08 Current Inpatient Medications Current Inpatient Medications: Current Inpatient Medications Acetaminophen (Acetaminophen 325 Mg Tab) 650 mg PO Q4H PRN PRN Reason: Headache or Minor Fever Stop: 05/19/23 21:17 Al Hydrox/Mg Hydrox/Simethicone (Aluminum/Magnesium Susp 30 Ml Udc) 30 ml PO Q4H PRN PRN Reason: GI Upset Stop: 05/19/23 21:17 Bismuth Subsalicylate (Bismuth Subsalicylate Liqd 236 Ml) 15 ml PO PRN PRN PRN Reason: Loose Stool Stop: 05/19/23 21:17 Clozapine (Clozapine 25 Mg Tab) 50 mg PO HS VIVIAN Stop: 06/08/23 21:59 Last Admin: 04/30/23 20:52 Dose: 50 mg Clozapine (Clozapine 100 Mg Tab) 300 mg PO HS VIVIAN Stop: 06/08/23 21:59 Last Admin: 04/30/23 20:53 Dose: 300 mg Docusate Sodium (Docusate Sodium 100 Mg Cap) 100 mg PO BID PRN PRN Reason: Constipation Stop: 05/20/23 08:59 Haloperidol Decanoate (Haloperidol Decanoate Inj 50 Mg/Ml Vial) 25 mg IM Q28D VIVIAN Stop: 05/08/23 17:29 Last Admin: 04/08/23 18:38 Dose: 25 mg Hydroxyzine HCl (Hydroxyzine Hcl 25 Mg Tab) 50 mg PO HSZ PRN PRN Reason: Insomnia Stop: 05/19/23 21:17 Hydroxyzine HCl (Hydroxyzine Hcl 25 Mg Tab) 25 mg PO Q4H PRN PRN Reason: Anxiety Stop: 05/19/23 21:17 [place] Carbonate ([place] Carbonate Slow Rel 300 Mg Tab) 1,500 mg PO HS VIVIAN Stop: 06/08/23 21:59 Last Admin: 04/30/23 20:52 Dose: 1,500 mg Magnesium Hydroxide (Magnesium Hydroxide Susp 30 Ml Udc) 30 ml PO DAILY PRN PRN Reason: Constipation Stop: 05/19/23 21:17 Sodium Chloride (Sodium Chloride 0.65% Na Soln 45 Ml ([place])) 1 - 2 sprays NA PRN PRN PRN Reason: Nasal Dryness/Congestion Stop: 05/19/23 21:17 Mental Health & Subst Abuse Tx Psychiatrist Name of Psychiatrist: Kody Rogers Psychiatrist's Time of Appointment with Psychiatrist: Please follow-up as needed. Psychiatric Appointment Comment: [address] [place] [address] Therapist Name of Therapist: [facility] Therapist's Therapy Appointment Comment: [address], [place] [address] Ultrasound Supervisor Name of Ultrasound Supervisor: [facility] Lisseth Rose Phone Number for Ultrasound Supervisor: [phone] Case Management Appointment Comment: Please resume your normal schedule. Post Discharge Appointments Primary Care Physician Name Of Family Doctor/PCP: Kody Dunn [facility] Time of Appointment with PCP: Please follow-up as needed. Provider Appointment Comment: [address] [place] [address] Primary Care Provider Name of Primary Care Provider: [facility] Phone Number of Primary Care Provider: [phone] Primary Care Provider Appointment Comment: Please resume your normal schedule. Contact Information Discharge Discharge Address: [address] [place] [address] [place] [phone]
[2023-05-01] MEDS: cloZAPine 100 MG TAB PO SCH (21:12)
[2023-05-01] MEDS: cloZAPine 25 MG TAB PO SCH (21:13)
[2023-05-01] MEDS: LITHIUM CARBONATE SLOW REL 300 MG TAB PO SCH (21:14)
--- NOTE | 2023-05-02 14:26 | Psychiatric Progress Note ---
Date of Service May 02, 2023 Impression / Recommendations Impression 27 y/o M resident of personal jail with exacerbation Schizoaffective Disorder, Bipolar Type due to not taking medications [place] concerns for possible suicide attempt given recent SI with plans of walking into traffic. He is now on a 304 commitment and is unable to return to his personal jail. [facility] referral in progress, the [facility] is currently reviewing. No other safe disposition options at this time. Referral in process with [facility] for possible [facility] intensive community bed. [facility] due to hx psychosis with intermittent auditory hallucinations, guarded around peers, cannot tolerate a roommate 05/02/2023: mood stable, ongoing internal stimuli. Accepted at extended acute care facility [facility] but will need 305 commitment for this to occur. Completed 305 commitment hearing paperwork and commitment hearing scheduled for 05/04/2023 with plan for transport to [facility] following the hearing. Plan: continue current meds and tx plan, will need COVID-19 PCR test tomorrow afternoon (1) Schizoaffective disorder, bipolar type: Plan 04/21/2023: Continue current medications and tx plan. 04/20/2023: Continue current medications and tx plan. Safe disposition placement/treatment options ongoing 04/19/2023: Continue current medications and tx plan. 04/18/2023: Continue current medications and tx plan. 04/17/2023: Continue with current medications and tx plan. ANC stable. 04/16/2023: Continue current medications and tx plan. 04/15/2023: Continue current medications and tx plan. 04/14/2023: (no change in plan) * continue lithium 1,500 mg QHS * continue clozapine 350 mg QHS * continue haloperidol decanoate 25 mg IM Q4 Wk; most recent dose * continue work towards identifying appropriate outpatient/residential placement 04/13/2023: (no change in plan) * continue lithium 1,500 mg QHS * continue clozapine 350 mg QHS * continue haloperidol decanoate 25 mg IM Q4 Wk; most recent dose * continue work towards identifying appropriate outpatient/residential placement 04/12/2023: (no change in plan) * continue lithium 1,500 mg QHS * continue clozapine 350 mg QHS * continue haloperidol decanoate 25 mg IM Q4 Wk; most recent dose * continue work towards identifying appropriate outpatient/residential placement 04/11/2023: (no change in plan) * continue lithium 1,500 mg QHS * continue clozapine 350 mg QHS * continue haloperidol decanoate 25 mg IM Q4 Wk; most recent dose * has no safe placement available but otherwise appropriate for discharge 04/10/2023: * consolidate lithium to 1,500 mg QHS * continue clozapine 350 mg QHS * continue haloperidol decanoate 25 mg IM Q4 Wk; most recent dose * has no safe placement available 04/09/2023: (no change in plan) * continue lithium 600 mg QAM & 900 mg QHS - most recent level 1.0 mmol/L on 03/17/2023; consider consolidation to 1,500 mg QHS * continue clozapine 350 mg QHS * continue haloperidol decanoate 25 mg IM Q4 Wk; most recent dose * has no safe placement available 04/08/2023: * discontinue aripiprazole lauroxil (next dose due tomorrow) * start haloperidol decanoate 25 mg IM Q4 Wk * Continue clozapine 350 mg QHS * Continue lithium 600 mg QAM & 900 mg QHS - most recent level 1.0 mmol/L on 03/17/2023; consider consolidation to 1,500 mg QHS * At this point scant need for [facility] hospital seen, yet has no place to go 04/07/2023: Continue current medications and tx plan. 04/06/2023: Discussed option to consider haldol if interested instead of abilify for next JOSHI, he will consider this (given prior positive response to clozapine and haldol combination) 04/05/2023: Continue with current medications and tx plan. 04/04/2023: Continue with current medications and tx plan. 04/03/2023: Continue with current medications and tx plan. 04/02/2023: Continue with current medications and tx plan. 04/01/2023: Continue with current medications and tx plan. 03/31/2023: diversion meeting completed. next lab draw 04/03/23. 03/25/2023: tolerating consolidation of clozaril to hs. 03/24/2023: Continue with current medications and tx plan. 03/23/2023: Continue with current medications and tx plan. 03/22/2023: Clozapine 350mg HS, continue other current medications 03/21/2023: Consolidate clozapine to 350mg HS starting tomorrow. 03/20/2023: Continue current medications and tx plan. 03/19/2023: Continue current medications and tx plan. CBC with ANC tomorrow. 03/18/2023: Continue current medications and tx plan. Will plan to consider augmentation with haldol once abilify JOSHI effects have waned over the next few weeks. 03/17/2023: * continue LiCO3 600 mg QAM & 900 mg QHS, anticipate consolidating to 1500 mg QHS starting tomorrow * continue clozapine 100 mg QAM & 250 mg QHS, consider consolidating to 350 mg QHS * discontinue aripiprazole lauroxil 400 mg IM monthly, last given 10 March 2023 (so will remain at significant level for several more weeks) * anticipate adding haloperidol, but at this point that would constitute 3 concurrent antipsychotics 03/16/2023: * continue LiCO3 600 mg QAM & 900 mg QHS, consider consolidating to 1500 mg QHS * recheck lithium level tomorrow * continue clozapine 100 mg QAM & 250 mg QHS, consider consolidating to 350 mg QHS * discontinue aripiprazole lauroxil 400 mg IM monthly, last given 10 March 2023 * anticipate adding haloperidol, but at this point that would constitute 3 concurrent antipsychotics * completed [place] form 785 for part 304(c) "involuntary" treatment at the [facility] 03/15/2023: * continue LiCO3 600 mg QAM & 900 mg QHS, consider consolidating to 1500 mg QHS * recheck lithium level in 2 days * continue clozapine 100 mg QAM & 250 mg QHS, consider consolidating to 350 mg QHS * discontinue aripiprazole lauroxil 400 mg IM monthly, last given 10 March 2023 * discontinue aripiprazole 5 mg daily 03/14/2023: The patient was admitted to the [facility] ([facility] mental health unit) on q15 min checks (behavioral with suicide precautions) for safety. The patient will participate in group, recreational, and milieu therapies and will be offered additional individual and family sessions as clinically appropriate. Pt was recently started on aripiprazole lauroxil. Since his record indicates a failed trial of oral aripiprazole in the past, I will be circumspect about discontinuing clozapine at this time. * continue LiCO3 600 mg QAM & 900 mg QHS * continue clozapine 100 mg QAM & 250 mg QHS for the time being * continue aripiprazole lauroxil 400 mg IM monthly, next due 09 April 2023 * continue aripiprazole 5 mg daily Inventory Assets Strengths: voluntary, intelligent Needs: safety and stabilization, medication adjustment Suicide Risk Level Suicide Risk Level: Low (q15 min observation checks) (consistently denying SI) Suicide Risk Level Comments: has chronic suicidal thoughts on which he's never acted Risk Factors Assessment Male: Yes : Yes Do You Have Access To A Gun?: No Health Problems: No Mental Health Diagnoses: Yes Substance Use Disorders: No Previous Attempt: No Family History of Suicide: No Previous Psychiatric Hospitalization: Yes Hopelessness: No Protective Factors Assessment Employed: No Good Rapport with Provider: Yes Interval History Identifying Information NASEEM MCGEE is a 27-year-old M who currently lives in [facility], has a history of Schizoaffective Disorder, Bipolar Type, and was admitted on 03/13/23 14:14 on a 201 voluntary commitment for susanne. He was committed under part 304(c) on 03/17/2023. Chief Complaint "I'm fine". Review of Systems Sleep Information Total Hours of Sleep: 6.5 Meal Information Percent Meal Consumed - Breakfast: 0 Percent Meal Consumed - Lunch: 100 Percent Meal Consumed - Dinner: 100 Subjective Subjective Patient was seen & assessed and interval progress reviewed with treatment team johny hernandez and social work. Accepted to [facility] extended acute care facility pending 305 commitment. Taz remains agreeable to this plan and is in support of 305 commitment. He denies any concerns or new medication side effects. Physical Exam Psychiatric Orientation: alert, oriented to person, oriented to place, oriented to time and cooperative Apperance: appropriately dressed and appropriately groomed Eye Contact: + fair eye contact Motor Behavior: + psychomotor agitation (walking most of the day) Speech: normal rate/rhythm/volume of speech (offering more episodes of brief spontaneous conversation at times) Affect: + flat affect Mood: no depressed mood and no anxious mood Thought Process: + concrete thought process Thought Content: reality based without delusions Suicidal Thoughts: denies suicidal thoughts, denies suicidal plan and denies suicidal intent Homicidal Thoughts: denies homicidal thoughts Hallucinations: + auditory hallucinations (responds throughout the day); no visual hallucinations and no tactile hallucinations Cognition: recent memory grossly intact, remote memory grossly intact, attention grossly intact and language grossly intact Estimated Intelligence: average estimated intelligence and consistent with education level Insight: + fair insight Judgment: + limited judgement Vital Signs (Past 24 Hours) Last Vital Signs Temp 36.7 C 05/02/23 06:40 Pulse 98 H 05/02/23 06:40 Resp 16 05/02/23 06:40 BP 110/72 05/02/23 06:40 Pulse Ox 99 05/01/23 06:00 O2 Del Method Room Air 05/01/23 06:00 Results & Data ([facility]) Current Inpatient Medications Current Inpatient Medications: Current Inpatient Medications Acetaminophen (Acetaminophen 325 Mg Tab) 650 mg PO Q4H PRN PRN Reason: Headache or Minor Fever Stop: 05/19/23 21:17 Al Hydrox/Mg Hydrox/Simethicone (Aluminum/Magnesium Susp 30 Ml Udc) 30 ml PO Q4H PRN PRN Reason: GI Upset Stop: 05/19/23 21:17 Bismuth Subsalicylate (Bismuth Subsalicylate Liqd 236 Ml) 15 ml PO PRN PRN PRN Reason: Loose Stool Stop: 05/19/23 21:17 Clozapine (Clozapine 25 Mg Tab) 50 mg PO HS VIVIAN Stop: 06/08/23 21:59 Last Admin: 05/01/23 21:13 Dose: 50 mg Clozapine (Clozapine 100 Mg Tab) 300 mg PO HS VIVIAN Stop: 06/08/23 21:59 Last Admin: 05/01/23 21:12 Dose: 300 mg Docusate Sodium (Docusate Sodium 100 Mg Cap) 100 mg PO BID PRN PRN Reason: Constipation Stop: 05/20/23 08:59 Haloperidol Decanoate (Haloperidol Decanoate Inj 50 Mg/Ml Vial) 25 mg IM Q28D VIVIAN Stop: 05/08/23 17:29 Last Admin: 04/08/23 18:38 Dose: 25 mg Hydroxyzine HCl (Hydroxyzine Hcl 25 Mg Tab) 50 mg PO HSZ PRN PRN Reason: Insomnia Stop: 05/19/23 21:17 Hydroxyzine HCl (Hydroxyzine Hcl 25 Mg Tab) 25 mg PO Q4H PRN PRN Reason: Anxiety Stop: 05/19/23 21:17 Vail Carbonate (Vail Carbonate Slow Rel 300 Mg Tab) 1,500 mg PO HS VIVIAN Stop: 06/08/23 21:59 Last Admin: 05/01/23 21:14 Dose: 1,500 mg Magnesium Hydroxide (Magnesium Hydroxide Susp 30 Ml Udc) 30 ml PO DAILY PRN PRN Reason: Constipation Stop: 05/19/23 21:17 Sodium Chloride (Sodium Chloride 0.65% Na Soln 45 Ml ([place])) 1 - 2 sprays NA PRN PRN PRN Reason: Nasal Dryness/Congestion Stop: 05/19/23 21:17 Mental Health & Subst Abuse Tx Psychiatrist Name of Psychiatrist: Kody Rogers Psychiatrist's Time of Appointment with Psychiatrist: Please follow-up as needed. Psychiatric Appointment Comment: [address] [place] [address] Therapist Name of Therapist: Cheko [facility] - [facility] Therapist's Therapy Appointment Comment: [address] [facility], [place] [address], [place] [address] Privacy Compliance Manager Name of Privacy Compliance Manager: [facility] Phone Number for Privacy Compliance Manager: [phone] Case Management Appointment Comment: Please resume your normal schedule. Post Discharge Appointments Primary Care Physician Name Of Family Doctor/PCP: Kody Dunn [facility] Time of Appointment with PCP: Please follow-up as needed. Provider Appointment Comment: [address] [place] [address] Tubing Drier Name of Tubing Drier: [facility] Crisis Peer Phone Number of Tubing Drier: [phone] Tubing Drier Appointment Comment: Please resume your normal schedule. Contact Information Discharge Discharge Address: [address] [place], [place] [id number]
[2023-05-02] MEDS: LITHIUM CARBONATE SLOW REL 300 MG TAB PO SCH (20:44)
[2023-05-02] MEDS: cloZAPine 100 MG TAB PO SCH ×2 (20:45→20:51)
[2023-05-02] MEDS: cloZAPine 25 MG TAB PO SCH (20:50)
--- NOTE | 2023-05-03 12:37 | Psychiatric Progress Note ---
Date of Service May 03, 2023 Impression / Recommendations Impression 27 y/o M resident of personal correction with exacerbation Schizoaffective Disorder, Bipolar Type due to not taking medications and [place] concerns for possible suicide attempt given recent SI with plans of walking into traffic. He is now on a 304 commitment and is unable to return to his personal correction. [facility] referral in progress, the [facility] is currently reviewing. No other safe disposition options at this time. Referral in process with [facility] for possible CRR intensive community bed. MNPR due to hx psychosis with intermittent auditory hallucinations, guarded around peers, cannot tolerate a roommate 05/03/2023: mood remains stable and he is agreeable with plan for [facility] extended acute care after 305 hearing tomorrow. COVID-19 test was negative. Given extended stay summary of admission: On admission Taz was demonstrating symptoms concerning for possible susanne given racing thoughts, agitation and worsened psychosis. His prior to admission citalopram was discontinued and over time his clozapine and lithium were consolidated to bedtime dosing once daily in effort to increase medication adherence in outpatient setting. Clozapine was consolidated to 350mg HS for schizoaffective disorder with weekly CBC/ANC checks (will require weekly checks for 6 months until 09/13/2023) , lithium was consolidated to 1500mg HS for schizoaffective disorder (most recent [place] level was 1.0 mmol/L on 03/17/2023) and he was started on haldol decanoate 25mg IM q30 days (most recent dose 04/08/2023, will due again 05/09/2023) for ongoing psychosis for augmentation of clozapine. Taz responded fairly quickly with mood stabilization and increased behavioral organization with the aforementioned medication adjustments. However, he continued to consistently respond to internal stimuli intermittently and was felt to require a more supportive living option after discharge given this represents his fourth hospitalization since November 2022 due to emergence of SI, non-adherence with psychiatric medications and increased disorganized behaviors in less supervised settings. Hospitalization was prolonged due to lack of disposition options with recommendation for CRR level/long term setting on discharge. He was accepted to an extended acute care program at [facility] to help him with ongoing stabilization and working on life skills and community re-integration while the [facility] works on finding eventual appropriate disposition placement. Plan: continue current meds and tx plan, 305 hearing tomorrow (1) Schizoaffective disorder, bipolar type: Plan 04/21/2023: Continue current medications and tx plan. 04/20/2023: Continue current medications and tx plan. Safe disposition placement/treatment options ongoing 04/19/2023: Continue current medications and tx plan. 04/18/2023: Continue current medications and tx plan. 04/17/2023: Continue with current medications and tx plan. ANC stable. 04/16/2023: Continue current medications and tx plan. 04/15/2023: Continue current medications and tx plan. 04/14/2023: (no change in plan) * continue lithium 1,500 mg QHS * continue clozapine 350 mg QHS * continue haloperidol decanoate 25 mg IM Q4 Wk; most recent dose * continue work towards identifying appropriate outpatient/residential placement 04/13/2023: (no change in plan) * continue lithium 1,500 mg QHS * continue clozapine 350 mg QHS * continue haloperidol decanoate 25 mg IM Q4 Wk; most recent dose * continue work towards identifying appropriate outpatient/residential placement 04/12/2023: (no change in plan) * continue lithium 1,500 mg QHS * continue clozapine 350 mg QHS * continue haloperidol decanoate 25 mg IM Q4 Wk; most recent dose * continue work towards identifying appropriate outpatient/residential placement 04/11/2023: (no change in plan) * continue lithium 1,500 mg QHS * continue clozapine 350 mg QHS * continue haloperidol decanoate 25 mg IM Q4 Wk; most recent dose * has no safe placement available but otherwise appropriate for discharge 04/10/2023: * consolidate lithium to 1,500 mg QHS * continue clozapine 350 mg QHS * continue haloperidol decanoate 25 mg IM Q4 Wk; most recent dose * has no safe placement available 04/09/2023: (no change in plan) * continue lithium 600 mg QAM & 900 mg QHS - most recent level 1.0 mmol/L on 03/17/2023; consider consolidation to 1,500 mg QHS * continue clozapine 350 mg QHS * continue haloperidol decanoate 25 mg IM Q4 Wk; most recent dose * has no safe placement available 04/08/2023: * discontinue aripiprazole lauroxil (next dose due tomorrow) * start haloperidol decanoate 25 mg IM Q4 Wk * Continue clozapine 350 mg QHS * Continue lithium 600 mg QAM & 900 mg QHS - most recent level 1.0 mmol/L on 03/17/2023; consider consolidation to 1,500 mg QHS * At this point scant need for [facility] seen, yet has no place to go 04/07/2023: Continue current medications and tx plan. 04/06/2023: Discussed option to consider haldol if interested instead of abilify for next JOSHI, he will consider this (given prior positive response to clozapine and haldol combination) 04/05/2023: Continue with current medications and tx plan. 04/04/2023: Continue with current medications and tx plan. 04/03/2023: Continue with current medications and tx plan. 04/02/2023: Continue with current medications and tx plan. 04/01/2023: Continue with current medications and tx plan. 03/31/2023: diversion meeting completed. next lab draw 04/03/23. 03/25/2023: tolerating consolidation of clozaril to hs. 03/24/2023: Continue with current medications and tx plan. 03/23/2023: Continue with current medications and tx plan. 03/22/2023: Clozapine 350mg HS, continue other current medications 03/21/2023: Consolidate clozapine to 350mg HS starting tomorrow. 03/20/2023: Continue current medications and tx plan. 03/19/2023: Continue current medications and tx plan. CBC with ANC tomorrow. 03/18/2023: Continue current medications and tx plan. Will plan to consider augmentation with haldol once abilify JOSHI effects have waned over the next few weeks. 03/17/2023: * continue LiCO3 600 mg QAM & 900 mg QHS, anticipate consolidating to 1500 mg QHS starting tomorrow * continue clozapine 100 mg QAM & 250 mg QHS, consider consolidating to 350 mg QHS * discontinue aripiprazole lauroxil 400 mg IM monthly, last given 10 March 2023 (so will remain at significant level for several more weeks) * anticipate adding haloperidol, but at this point that would constitute 3 concurrent antipsychotics 03/16/2023: * continue LiCO3 600 mg QAM & 900 mg QHS, consider consolidating to 1500 mg QHS * recheck lithium level tomorrow * continue clozapine 100 mg QAM & 250 mg QHS, consider consolidating to 350 mg QHS * discontinue aripiprazole lauroxil 400 mg IM monthly, last given 10 March 2023 * anticipate adding haloperidol, but at this point that would constitute 3 concurrent antipsychotics * completed [place] form 785 for part 304(c) "involuntary" treatment at the [facility] 03/15/2023: * continue LiCO3 600 mg QAM & 900 mg QHS, consider consolidating to 1500 mg QHS * recheck lithium level in 2 days * continue clozapine 100 mg QAM & 250 mg QHS, consider consolidating to 350 mg QHS * discontinue aripiprazole lauroxil 400 mg IM monthly, last given 10 March 2023 * discontinue aripiprazole 5 mg daily 03/14/2023: The patient was admitted to the [facility] ([facility] mental health unit) on q15 min checks (behavioral with suicide precautions) for safety. The patient will participate in group, recreational, and milieu therapies and will be offered additional individual and family sessions as clinically appropriate. Pt was recently started on aripiprazole lauroxil. Since his record indicates a failed trial of oral aripiprazole in the past, I will be circumspect about discontinuing clozapine at this time. * continue LiCO3 600 mg QAM & 900 mg QHS * continue clozapine 100 mg QAM & 250 mg QHS for the time being * continue aripiprazole lauroxil 400 mg IM monthly, next due 09 April 2023 * continue aripiprazole 5 mg daily Inventory Assets Strengths: voluntary, intelligent Needs: safety and stabilization, medication adjustment Suicide Risk Level Suicide Risk Level: Low (q15 min observation checks) (consistently denying SI) Suicide Risk Level Comments: has chronic suicidal thoughts on which he's never acted Risk Factors Assessment Male: Yes : Yes Do You Have Access To A Gun?: No Health Problems: No Mental Health Diagnoses: Yes Substance Use Disorders: No Previous Attempt: No Family History of Suicide: No Previous Psychiatric Hospitalization: Yes Hopelessness: No Protective Factors Assessment Employed: No Good Rapport with Provider: Yes Interval History Identifying Information NASEEM MCGEE is a 27-year-old M who currently lives in [facility], has a history of Schizoaffective Disorder, Bipolar Type, and was admitted on 03/13/23 14:14 on a 201 voluntary commitment for susanne. He was committed under part 304(c) on 03/17/2023. Chief Complaint "I'm good". Review of Systems Sleep Information Total Hours of Sleep: 7 Meal Information Percent Meal Consumed - Breakfast: 0 Percent Meal Consumed - Lunch: 100 Percent Meal Consumed - Dinner: 50 Nutrition Comment: pt. declined, reports not feeling hungry this AM Subjective Subjective Patient was seen & assessed and interval progress reviewed with treatment team nursing and social work. Feels his mood is stable. Denies any medication side effects. In agreement with plan to go to [facility] extended acute care for focus on community re-integration. Physical Exam Psychiatric Orientation: alert, oriented to person, oriented to place, oriented to time and cooperative Apperance: appropriately dressed and appropriately groomed Eye Contact: + fair eye contact Motor Behavior: + psychomotor agitation (walking most of the day) Speech: normal rate/rhythm/volume of speech (offering more episodes of brief spontaneous conversation at times) Affect: + flat affect Mood: no depressed mood and no anxious mood Thought Process: + concrete thought process Thought Content: reality based without delusions Suicidal Thoughts: denies suicidal thoughts, denies suicidal plan and denies suicidal intent Homicidal Thoughts: denies homicidal thoughts Hallucinations: + auditory hallucinations (responds throughout the day); no visual hallucinations and no tactile hallucinations Cognition: recent memory grossly intact, remote memory grossly intact, attention grossly intact and language grossly intact Estimated Intelligence: average estimated intelligence and consistent with education level Insight: + fair insight Judgment: + limited judgement Vital Signs (Past 24 Hours) Last Vital Signs Temp 37.1 C 05/03/23 06:34 Pulse 89 05/03/23 06:35 Resp 16 05/03/23 06:34 BP 109/71 05/03/23 06:35 Pulse Ox 99 05/01/23 06:00 O2 Del Method Room Air 05/01/23 06:00 Results & Data ([facility]) Current Inpatient Medications Current Inpatient Medications: Current Inpatient Medications Acetaminophen (Acetaminophen 325 Mg Tab) 650 mg PO Q4H PRN PRN Reason: Headache or Minor Fever Stop: 05/19/23 21:17 Al Hydrox/Mg Hydrox/Simethicone (Aluminum/Magnesium Susp 30 Ml Udc) 30 ml PO Q4H PRN PRN Reason: GI Upset Stop: 05/19/23 21:17 Bismuth Subsalicylate (Bismuth Subsalicylate Liqd 236 Ml) 15 ml PO PRN PRN PRN Reason: Loose Stool Stop: 05/19/23 21:17 Clozapine (Clozapine 25 Mg Tab) 50 mg PO HS VIVIAN Stop: 06/08/23 21:59 Last Admin: 05/02/23 20:50 Dose: 50 mg Clozapine (Clozapine 100 Mg Tab) 300 mg PO HS VIVIAN Stop: 06/08/23 21:59 Last Admin: 05/02/23 20:51 Dose: 300 mg Docusate Sodium (Docusate Sodium 100 Mg Cap) 100 mg PO BID PRN PRN Reason: Constipation Stop: 05/20/23 08:59 Haloperidol Decanoate (Haloperidol Decanoate Inj 50 Mg/Ml Vial) 25 mg IM Q28D VIVIAN Stop: 05/08/23 17:29 Last Admin: 04/08/23 18:38 Dose: 25 mg Hydroxyzine HCl (Hydroxyzine Hcl 25 Mg Tab) 50 mg PO HSZ PRN PRN Reason: Insomnia Stop: 05/19/23 21:17 Hydroxyzine HCl (Hydroxyzine Hcl 25 Mg Tab) 25 mg PO Q4H PRN PRN Reason: Anxiety Stop: 05/19/23 21:17 [place] Carbonate (Keeler Carbonate Slow Rel 300 Mg Tab) 1,500 mg PO HS VIVIAN Stop: 06/08/23 21:59 Last Admin: 05/02/23 20:44 Dose: 1,500 mg Magnesium Hydroxide (Magnesium Hydroxide Susp 30 Ml Udc) 30 ml PO DAILY PRN PRN Reason: Constipation Stop: 05/19/23 21:17 Sodium Chloride (Sodium Chloride 0.65% Na Soln 45 Ml ([place])) 1 - 2 sprays NA PRN PRN PRN Reason: Nasal Dryness/Congestion Stop: 05/19/23 21:17 Mental Health & Subst Abuse Tx Psychiatrist Name of Psychiatrist: Kody Rogers Psychiatrist's Time of Appointment with Psychiatrist: Please follow-up as needed. Psychiatric Appointment Comment: [address] [place] [address] Therapist Name of Therapist: [facility] [place] Therapist's Therapy Appointment Comment: [address] [facility] [address], [place] [address] Medical Radiation Tech Name of Medical Radiation Tech: [facility] [place] Phone Number for Medical Radiation Tech: [phone] Case Management Appointment Comment: Please resume your normal schedule. Post Discharge Appointments Primary Care Physician Name Of Family Doctor/PCP: Kody Dunn Primary [facility] Time of Appointment with PCP: Please follow-up as needed. Provider Appointment Comment: [address] [place] [address] Sales Project Administrator Name of Sales Project Administrator: [facility] Crisis Peer Phone Number of Sales Project Administrator: [phone] Sales Project Administrator Appointment Comment: Please resume your normal schedule. Contact Information Discharge Discharge Address: [address] [place] [address] [place] [id number]
[2023-05-03] MEDS: LITHIUM CARBONATE SLOW REL 300 MG TAB PO SCH (21:57)
[2023-05-03] MEDS: cloZAPine 100 MG TAB PO SCH (21:57)
[2023-05-03] MEDS: cloZAPine 25 MG TAB PO SCH (21:58)
--- NOTE | 2023-05-04 14:09 | Psychiatric Progress Note ---
Date of Service May 04, 2023 Impression / Recommendations Impression 27 y/o M resident of personal long term with exacerbation Schizoaffective Disorder, Bipolar Type due to not taking medications [place] concerns for possible suicide attempt given recent SI with plans of walking into traffic. He is now on a 304 commitment and is unable to return to his personal long term. [facility] referral in progress, the [facility] is currently reviewing. No other safe disposition options at this time. Referral in process with [facility] for possible CRR intensive community bed. MNPR due to hx psychosis with intermittent auditory hallucinations, guarded around peers, cannot tolerate a roommate 05/04/2023: some increased anxiety related to plan for upcoming transition to [facility] extended acute care. Attended 305 hearing for 30 minutes, 305 granted. Given extended stay summary of admission: On admission Taz was demonstrating symptoms concerning for possible susanne given racing thoughts, agitation and worsened psychosis. His prior to admission citalopram was discontinued and over time his clozapine and lithium were consolidated to bedtime dosing once daily in effort to increase medication adherence in outpatient setting. Clozapine was consolidated to 350mg HS for schizoaffective disorder with weekly CBC/ANC checks (will require weekly checks for 6 months until 09/13/2023) , lithium was consolidated to 1500mg HS for schizoaffective disorder (most recent [place] level was 1.0 mmol/L on 03/17/2023) and he was started on haldol decanoate 25mg IM q30 days (most recent dose 04/08/2023, will due again 05/09/2023) for ongoing psychosis for augmentation of clozapine. Taz responded fairly quickly with mood stabilization and increased behavioral organization with the aforementioned medication adjustments. However, he continued to consistently respond to internal stimuli intermittently and was felt to require a more supportive living option after discharge given this represents his fourth hospitalization since November 2022 due to emergence of SI, non-adherence with psychiatric medications and increased disorganized behaviors in less supervised settings. Hospitalization was prolonged due to lack of disposition options with recomm endation for CRR level/intermediate setting on discharge. He was accepted to an extended acute care program at [facility] to help him with ongoing stabilization and working on life skills and community re-integration while the [facility] works on finding eventual appropriate disposition placement. Plan: continue current meds and tx plan, plan for transfer to [facility] tomorrow morning (1) Schizoaffective disorder, bipolar type: Plan -Continue clozapine 350mg HS -Continue [place] Carbonate 1,500mg HS -Continue Haldol Decanoate 25mg IM JOSHI q28-30 days (last received 04/08/2023, next due ~05/09/2023) Inventory Assets Strengths: voluntary, intelligent Needs: safety and stabilization, medication adjustment Suicide Risk Level Suicide Risk Level: Low (q15 min observation checks) (consistently denying SI) Risk Factors Assessment Male: Yes : Yes Do You Have Access To A Gun?: No Health Problems: No Mental Health Diagnoses: Yes Substance Use Disorders: No Previous Attempt: No Family History of Suicide: No Previous Psychiatric Hospitalization: Yes Hopelessness: No Protective Factors Assessment Employed: No Good Rapport with Provider: Yes Interval History Identifying Information NASEEM MCGEE is a 27-year-old M who currently lives in [facility], has a history of Schizoaffective Disorder, Bipolar Type, and was admi tted on 03/13/23 14:14 on a 201 voluntary commitment for susanne. He was committed under part 304(c) on 03/17/2023. Chief Complaint "Good". Review of Systems Sleep Information Total Hours of Sleep: 7 Meal Information Percent Meal Consumed - Breakfast: 20 Percent Meal Consumed - Lunch: 100 Percent Meal Consumed - Dinner: 100 Nutrition Comment: Subjective Subjective Patient was seen & assessed and interval progress reviewed with treatment team nursing and social work. He elected not to attend 305 hearing but was in support of this plan. Reports stable mood. Some increased anxiety this morning in anticipation of upcoming transition to [facility] extended acute care unit. Physical Exam Psychiatric Orientation: alert, oriented to person, oriented to place, oriented to time and cooperative Apperance: appropriately dressed and appropriately groomed Eye Contact: + fair eye contact Motor Behavior: + psychomotor agitation (walking most of the day) Speech: normal rate/rhythm/volume of speech (offering more episodes of brief spontaneous conversation at times) Affect: + flat affect Mood: + anxious mood; no depressed mood Thought Process: + concrete thought process Thought Content: reality based without delusions Suicidal Thoughts: denies suicidal thoughts, denies suicidal plan and denies suicidal intent Homicidal Thoughts: denies homicidal thoughts Hallucinations: + auditory hallucinations (responds throughout the day); no visual hallucinations and no tactile hallucinations Cognition: recent memory grossly intact, remote memory grossly intact, attention grossly intact and language grossly intact Estimated Intelligence: average estimated intelligence and consistent with education level Insight: + fair insight Judgment: + limited judgement Vital Signs (Past 24 Hours) Last Vital Signs Temp 36.7 C 05/04/23 06:40 Pulse 100 H 05/04/23 06:42 Resp 18 05/04/23 06:40 BP 127/88 05/04/23 06:42 Pulse Ox 99 05/04/23 06:40 O2 Del Method Room Air 05/04/23 06:40 Results & Data ([facility]) Laboratory Results Laboratory Results - last 24 hr 05/03/23 13:45 SARS-CoV-2, RNA, NAAT NEGATIVE Current Inpatient Medications Current Inpatient Medications: Current Inpatient Medications Acetaminophen (Acetaminophen 325 Mg Tab) 650 mg PO Q4H PRN PRN Reason: Headache or Minor Fever Stop: 05/19/23 21:17 Al Hydrox/Mg Hydrox/Simethicone (Aluminum/Magnesium Susp 30 Ml Udc) 30 ml PO Q4H PRN PRN Reason: GI Upset Stop: 05/19/23 21:17 Bismuth Subsalicylate (Bismuth Subsalicylate Liqd 236 Ml) 15 ml PO PRN PRN PRN Reason: Loose Stool Stop: 05/19/23 21:17 Clozapine (Clozapine 25 Mg Tab) 50 mg PO HS VIVIAN Stop: 06/08/23 21:59 Last Admin: 05/03/23 21:58 Dose: 50 mg Clozapine (Clozapine 100 Mg Tab) 300 mg PO HS VIVIAN Stop: 06/08/23 21:59 Last Admin: 05/03/23 21:57 Dose: 300 mg Docusate Sodium (Docusate Sodium 100 Mg Cap) 100 mg PO BID PRN PRN Reason: Constipation Stop: 05/20/23 08:59 Haloperidol Decanoate (Haloperidol Decanoate Inj 50 Mg/Ml Vial) 25 mg IM Q28D VIVIAN Stop: 05/08/23 17:29 Last Admin: 04/08/23 18:38 Dose: 25 mg Hydroxyzine HCl (Hydroxyzine Hcl 25 Mg Tab) 50 mg PO HSZ PRN PRN Reason: Insomnia Stop: 05/19/23 21:17 Hydroxyzine HCl (Hydroxyzine Hcl 25 Mg Tab) 25 mg PO Q4H PRN PRN Reason: Anxiety Stop: 05/19/23 21:17 [place] Carbonate ([place] Carbonate Slow Rel 300 Mg Tab) 1,500 mg PO HS VIVIAN Stop: 06/08/23 21:59 Last Admin: 05/03/23 21:57 Dose: 1,500 mg Magnesium Hydroxide (Magnesium Hydroxide Susp 30 Ml Udc) 30 ml PO DAILY PRN PRN Reason: Constipation Stop: 05/19/23 21:17 Sodium Chloride (Sodium Chloride 0.65% Na Soln 45 Ml ([place])) 1 - 2 sprays NA PRN PRN PRN Reason: Nasal Dryness/Congestion Stop: 05/19/23 21:17 Mental Health & Subst Abuse Tx Psychiatrist Name of Psychiatrist: Kody Rogers Psychiatrist's Time of Appointment with Psychiatrist: Please follow-up as needed. Psychiatric Appointment Comment: [address] [place] [address] Therapist Name of Therapist: [facility] [place] Therapist's Therapy Appointment Comment: [address], [facility] [address], [place] [address] Research Laboratory Specialist Name of Research Laboratory Specialist: [facility] [place] Phone Number for Research Laboratory Specialist: [phone] Case Management Appointment Comment: Please resume your normal schedule. Post Discharge Appointments Primary Care Physician Name Of Family Doctor/PCP: Kody Dunn Primary Care Time of Appointment with PCP: Please follow-up as needed. Provider Appointment Comment: [address] [place] [address] Associate Professor Of Geology Name of Associate Professor Of Geology: [facility] Crisis Peer Phone Number of Associate Professor Of Geology: [phone] Associate Professor Of Geology Appointment Comment: Please resume your normal schedule. Contact Information Discharge Discharge Address: [address] [place], [place] [id number]
[2023-05-04] MEDS: cloZAPine 100 MG TAB PO SCH (21:34)
[2023-05-04] MEDS: cloZAPine 25 MG TAB PO SCH (21:34)
[2023-05-04] MEDS: LITHIUM CARBONATE SLOW REL 300 MG TAB PO SCH (21:35)
--- NOTE | 2023-05-05 08:13 | Discharge Summary ---
Date of Service May 05, 2023 History of Present Illness 27 y/o man familiar to this service from 3 previous admissions in the last 4 months. He appears to have stopped taking most or all of his medications because he "was really distracted by the voices" and because he just has "a preference not to take them". He was just stared on aripiprazole lauroxil a few days prior to presentation. He reports thoughts of "jumping into traffic" (a longstanding theme, though he has never attempted suicide) and racing thoughts in addition to the chronic voices he hears commenting on his thoughts and actions. Physical Exam Vital Signs (Past 24 Hours) Last Vital Signs Temp 36.6 C 05/05/23 06:16 Pulse 83 05/05/23 06:19 Resp 18 05/05/23 06:16 BP 94/58 L 05/05/23 06:19 Pulse Ox 98 05/05/23 06:16 O2 Del Method Room Air 05/05/23 06:16 See admission H&P and DOD summary. Principal Diagnosis Schizoaffective Disorder Psychiatric Data Given extended length of stay see summary of admission below. In short, safety was maintained and the patient was cooperative with care. Medication changes included consolidation of his Regino Ramirez and Clozapine at HS and initiation of Haldol Decanoate JOSHI monthly and they tolerated this well. A safety plan was completed prior to discharge. Given extended stay summary of admission: On admission Taz was demonstrating symptoms concerning for possible susanne given racing thoughts, agitation and worsened psychosis after initiation of citalopram for depression and SI of thoughts of walking into traffic. His prior to admission citalopram was discontinued and over time his clozapine and lithium were consolidated to bedtime dosing once daily in effort to increase medication adherence in outpatient setting. Clozapine was consolidated to 350mg HS for schizoaffective disorder with weekly CBC/ANC checks (will require weekly checks for 6 months until 09/13/2023) , lithium was consolidated to 1500mg HS for schizoaffective disorder (most recent Regino Ramirez level was 1.0 mmol/L on 03/17/2023) and he was started on haldol decanoate 25mg IM q30 days (most recent dose 04/08/2023, will due again 05/09/2023) for ongoing psychosis for augmentation of clozapine. Taz responded fairly quickly with mood stabilization and increased behavioral organization with the aforementioned medication adjustments. However, he continued to consistently respond to internal stimuli intermittently and was felt to require a more supportive living option after discharge given this represents his fourth hospitalization since November 2022 due to emergence of SI, non-adherence with psychiatric medications and increased disorganized behaviors in less supervised settings. Hospitalization was prolonged due to lack of disposition options with recommendation for CRR level/penitentiary setting on discharge. He was accepted to an extended acute care program at [facility] help him with ongoing stabilization and working on life skills and community re-integration while the [facility] works on finding eventual appropriate disposition placement. Day of Discharge Assessment Today the patient voices readiness for discharge. They note improvement in mood and anxiety. They deny thoughts of harm to self or others. Thoughts are fairly organized but concrete and they are clinically improved from admission. There remains evidence of psychosis in that he frequently responds to internal stimuli by speaking to himself while walking but there is not evidence for thought blocking, delusions or paranoia at this time and his behavior has been organized. They improved in the hospital with support and medication adjustments. They agree to take medications as prescribed and keep follow-up appointments. At the time of the discharge they are deemed to be stable and appropriate for extended inpatient level of care. They are not deemed to be at imminent risk of harm to self or others. They are aware of emergency and crisis services. Knows to call 911 or go to nearest emergency care center if in a crisis which cannot be handled as an outpatient. Transition of Care Transition Of Care Record: was reviewed with the patient Advance Directives Advance Directives Information Provided: Yes Advance Directives: No Mental Health Advance Directive: No Advance Directives on File: No Living Will: No Power of Website Designer: No Advance Directives Reason:: Declines as Mental Health Visit. Suicide Risk Level Suicide Risk Level Comments: Acute risk is low given improvement in mood and denial of SI, will be going to a supervised setting, lack of access to lethal means, plan to avoid substance use, improvement in sleep, hopefulness and some improvement in psychosis. Chronic risk is moderate given some non-modifiable risk factors: periods of impulsivity, prior psychiatric hospitalizations, poor social support, mood disorder and schizophrenia but also with protective factors including: supportive family, sense of responsibility to family and social supports, outpatient care in place, positive coping skills, capacity to establish therapeutic alliance, willingness to engage with treatment and capacity for self-observation. Counseled on ways to reduce acute and chronic risk including engaging with skill building at extended acute care inpatient program, working with providers, using safety plan if needed, utilizing supports, taking medication, and using coping skills. Modifiable risk factors of susanne, psychosis, and SI were addressed during hospitalization through development of new coping skills, safety planning, medication adjustments and ongoing work to develop more supportive outpatient housing/support. Risk Factors Assessment Male: Yes : Yes Do You Have Access To A Gun?: No Health Problems: No Mental Health Diagnoses: Yes Substance Use Disorders: No Previous Attempt: No Family History of Suicide: No Previous Psychiatric Hospitalization: Yes Hopelessness: No Protective Factors Assessment Employed: No Supportive Family: Yes Good Rapport with Provider: Yes Antipsychotic Medications Additional antipsychotic of haldol decanoate is being used for augmentation of clozapine. Discharge Data Lab Results 03/13/23 03/13/23 03/13/23 12:30 12:30 12:30 WBC 10.06 RBC 5.78 Hgb 16.2 Hct 48.1 MCV 83.2 MCH 28.0 MCHC 33.7 RDW Std Deviation 39.7 RDW Coeff of Belén 13.2 Plt Count 347 MPV 10.4 Immature Gran % (Auto) 0.5 Neut % (Auto) 72.4 Lymph % (Auto) 17.5 [place] % (Auto) 7.7 Eos % (Auto) 1.1 Baso % (Auto) 0.8 Neut # (Auto) 7.29 H Lymph # (Auto) 1.76 [place] # (Auto) 0.77 H Eos # (Auto) 0.11 Baso # (Auto) 0.08 Immature Gran # (Auto) 0.05 Sodium 140 Potassium 4.1 Chloride 105 Carbon Dioxide 29 Anion Gap 6 BUN 8 Creatinine 1.07 Est Cr Clr Drug Dosing 132.2 Est GFR ( Amer) 109.7 Est GFR (Non-Af Amer) 94.6 BUN/Creatinine Ratio 7.5 L Glucose 94 Calcium 9.9 Total Bilirubin 0.7 AST 24 ALT 28 Alkaline Phosphatase 59 Total Protein 7.4 Albumin 4.8 Globulin 2.6 Albumin/Globulin Ratio 1.8 TSH 3.498 Urine Color Urine Appearance Urine pH Ur Specific [place] Urine Protein Urine Glucose (UA) Urine Ketones Urine Blood Urine Nitrite Urine Bilirubin Urine Urobilinogen Ur Leukocyte Esterase Urine WBC (Auto) Urine RBC (Auto) U Hyaline Cast (Auto) U Epithel Cells (Auto) Urine Bacteria (Auto) Salicylates Urine Opiates Screen Ur Methadone, Qual Acetaminophen Urine Barbiturates Ur Phencyclidine (PCP) U Amphetamin/Meth Scrn MDMA (Ecstasy) Screen U Benzodiazepines Scrn Regino Ramirez Ur Cocaine Metabolite U Marijuana (THC) Screen Ethyl Alcohol mg/dL SARS-CoV-2, RNA, NAAT 03/13/23 03/13/23 03/13/23 12:30 12:30 12:32 WBC RBC Hgb Hct MCV MCH MCHC RDW Std Deviation RDW Coeff of Belén Plt Count MPV Immature Gran % (Auto) Neut % (Auto) Lymph % (Auto) [place] % (Auto) Eos % (Auto) Baso % (Auto) Neut # (Auto) Lymph # (Auto) [place] # (Auto) Eos # (Auto) Baso # (Auto) Immature Gran # (Auto) Sodium Potassium Chloride Carbon Dioxide Anion Gap BUN Creatinine Est Cr Clr Drug Dosing Est GFR ( Amer) Est GFR (Non-Af Amer) BUN/Creatinine Ratio Glucose Calcium Total Bilirubin AST ALT Alkaline Phosphatase Total Protein Albumin Globulin Albumin/Globulin Ratio TSH Urine Color Yellow Urine Appearance Clear Urine pH 7.5 Ur Specific [place] 1.011 Urine Protein Negative Urine Glucose (UA) Negative Urine Ketones Negative Urine Blood Negative Urine Nitrite Negative Urine Bilirubin Negative Urine Urobilinogen Negative Ur Leukocyte Esterase Trace H Urine WBC (Auto) 1-5 Urine RBC (Auto) 0-4 U Hyaline Cast (Auto) 0 U Epithel Cells (Auto) 5-10 H Urine Bacteria (Auto) Negative Salicylates < 3.0 L Urine Opiates Screen Ur Methadone, Qual Acetaminophen < 3 L Urine Barbiturates Ur Phencyclidine (PCP) U Amphetamin/Meth Scrn MDMA (Ecstasy) Screen U Benzodiazepines Scrn Regino Ramirez Ur Cocaine Metabolite U Marijuana (THC) Screen Ethyl Alcohol mg/dL < 10.0 SARS-CoV-2, RNA, NAAT 03/13/23 03/13/23 03/14/23 12:32 12:32 09:46 WBC RBC Hgb Hct MCV MCH MCHC RDW Std Deviation RDW Coeff of Belén Plt Count MPV Immature Gran % (Auto) Neut % (Auto) Lymph % (Auto) [place] % (Auto) Eos % (Auto) Baso % (Auto) Neut # (Auto) Lymph # (Auto) [place] # (Auto) Eos # (Auto) Baso # (Auto) Immature Gran # (Auto) Sodium Potassium Chloride Carbon Dioxide Anion Gap BUN Creatinine Est Cr Clr Drug Dosing Est GFR ( Amer) Est GFR (Non-Af Amer) BUN/Creatinine Ratio Glucose Calcium Total Bilirubin AST ALT Alkaline Phosphatase Total Protein Albumin Globulin Albumin/Globulin Ratio TSH Urine Color Urine Appearance Urine pH Ur Specific [place] Urine Protein Urine Glucose (UA) Urine Ketones Urine Blood Urine Nitrite Urine Bilirubin Urine Urobilinogen Ur Leukocyte Esterase Urine WBC (Auto) Urine RBC (Auto) U Hyaline Cast (Auto) U Epithel Cells (Auto) Urine Bacteria (Auto) Salicylates Urine Opiates Screen Neg Ur Methadone, Qual Neg Acetaminophen Urine Barbiturates Neg Ur Phencyclidine (PCP) Neg U Amphetamin/Meth Scrn Neg MDMA (Ecstasy) Screen Neg U Benzodiazepines Scrn Neg Regino Ramirez 0.6 Ur Cocaine Metabolite Neg U Marijuana (THC) Screen Neg Ethyl Alcohol mg/dL SARS-CoV-2, RNA, NAAT NEGATIVE 03/17/23 03/20/23 03/27/23 08:12 08:03 06:55 WBC 9.88 11.52 H RBC 5.71 5.70 Hgb 15.6 15.7 Hct 47.4 47.4 MCV 83.0 83.2 MCH 27.3 27.5 MCHC 32.9 33.1 RDW Std Deviation 38.9 38.8 RDW Coeff of Belén 12.8 12.9 Plt Count 338 326 MPV 10.2 10.5 Immature Gran % (Auto) 0.9 0.5 Neut % (Auto) 57.4 61.8 Lymph % (Auto) 26.5 25.3 [place] % (Auto) 10.4 8.2 Eos % (Auto) 3.7 3.3 Baso % (Auto) 1.1 0.9 Neut # (Auto) 5.66 7.12 H Lymph # (Auto) 2.62 2.91 [place] # (Auto) 1.03 H 0.95 H Eos # (Auto) 0.37 0.38 Baso # (Auto) 0.11 0.10 Immature Gran # (Auto) 0.09 0.06 Sodium Potassium Chloride Carbon Dioxide Anion Gap BUN Creatinine Est Cr Clr Drug Dosing Est GFR ( Amer) Est GFR (Non-Af Amer) BUN/Creatinine Ratio Glucose Calcium Total Bilirubin AST ALT Alkaline Phosphatase Total Protein Albumin Globulin Albumin/Globulin Ratio TSH Urine Color Urine Appearance Urine pH Ur Specific [place] Urine Protein Urine Glucose (UA) Urine Ketones Urine Blood Urine Nitrite Urine Bilirubin Urine Urobilinogen Ur Leukocyte Esterase Urine WBC (Auto) Urine RBC (Auto) U Hyaline Cast (Auto) U Epithel Cells (Auto) Urine Bacteria (Auto) Salicylates Urine Opiates Screen Ur Methadone, Qual Acetaminophen Urine Barbiturates Ur Phencyclidine (PCP) U Amphetamin/Meth Scrn MDMA (Ecstasy) Screen U Benzodiazepines Scrn Regino Ramirez 1.0 Ur Cocaine Metabolite U Marijuana (THC) Screen Ethyl Alcohol mg/dL SARS-CoV-2, RNA, NAAT 04/03/23 04/10/23 04/17/23 06:35 07:32 07:15 WBC 12.10 H 16.04 H 17.17 H RBC 5.94 5.78 5.75 Hgb 16.2 16.1 15.8 Hct 49.2 47.5 47.9 MCV 82.8 82.2 83.3 MCH 27.3 27.9 27.5 MCHC 32.9 33.9 33.0 RDW Std Deviation 39.0 38.8 40.0 RDW Coeff of Belén 13.1 13.1 13.2 Plt Count 350 322 328 MPV 10.7 10.7 10.3 Immature Gran % (Auto) 0.7 0.5 0.5 Neut % (Auto) 59.2 80.8 79.4 Lymph % (Auto) 26.7 10.2 10.5 [place] % (Auto) 8.9 6.7 7.1 Eos % (Auto) 3.7 1.4 2.0 Baso % (Auto) 0.8 0.4 0.5 Neut # (Auto) 7.16 H 12.96 H 13.63 H Lymph # (Auto) 3.23 1.64 1.81 [place] # (Auto) 1.08 H 1.07 H 1.22 H Eos # (Auto) 0.45 0.22 0.34 Baso # (Auto) 0.10 0.07 0.08 Immature Gran # (Auto) 0.08 0.08 0.09 Sodium Potassium Chloride Carbon Dioxide Anion Gap BUN Creatinine Est Cr Clr Drug Dosing Est GFR ( Amer) Est GFR (Non-Af Amer) BUN/Creatinine Ratio Glucose Calcium Total Bilirubin AST ALT Alkaline Phosphatase Total Protein Albumin Globulin Albumin/Globulin Ratio TSH Urine Color Urine Appearance Urine pH Ur Specific [place] Urine Protein Urine Glucose (UA) Urine Ketones Urine Blood Urine Nitrite Urine Bilirubin Urine Urobilinogen Ur Leukocyte Esterase Urine WBC (Auto) Urine RBC (Auto) U Hyaline Cast (Auto) U Epithel Cells (Auto) Urine Bacteria (Auto) Salicylates Urine Opiates Screen Ur Methadone, Qual Acetaminophen Urine Barbiturates Ur Phencyclidine (PCP) U Amphetamin/Meth Scrn MDMA (Ecstasy) Screen U Benzodiazepines Scrn Regino Ramirez Ur Cocaine Metabolite U Marijuana (THC) Screen Ethyl Alcohol mg/dL SARS-CoV-2, RNA, NAAT 04/24/23 05/01/23 05/03/23 07:25 07:39 13:45 WBC 10.31 11.92 H RBC 5.60 5.68 Hgb 15.3 15.5 Hct 45.9 47.8 MCV 82.0 84.2 MCH 27.3 27.3 MCHC 33.3 32.4 RDW Std Deviation 39.8 42.5 RDW Coeff of Belén 13.5 13.8 Plt Count 350 341 MPV 10.3 10.2 Immature Gran % (Auto) 0.9 0.7 Neut % (Auto) 61.9 63.1 Lymph % (Auto) 24.6 24.9 [place] % (Auto) 8.3 7.5 Eos % (Auto) 3.4 3.0 Baso % (Auto) 0.9 0.8 Neut # (Auto) 6.38 7.53 H Lymph # (Auto) 2.54 2.97 [place] # (Auto) 0.86 H 0.89 H Eos # (Auto) 0.35 0.36 Baso # (Auto) 0.09 0.09 Immature Gran # (Auto) 0.09 0.08 Sodium Potassium Chloride Carbon Dioxide Anion Gap BUN Creatinine Est Cr Clr Drug Dosing Est GFR ( Amer) Est GFR (Non-Af Amer) BUN/Creatinine Ratio Glucose Calcium Total Bilirubin AST ALT Alkaline Phosphatase Total Protein Albumin Globulin Albumin/Globulin Ratio TSH Urine Color Urine Appearance Urine pH Ur Specific [place] Urine Protein Urine Glucose (UA) Urine Ketones Urine Blood Urine Nitrite Urine Bilirubin Urine Urobilinogen Ur Leukocyte Esterase Urine WBC (Auto) Urine RBC (Auto) U Hyaline Cast (Auto) U Epithel Cells (Auto) Urine Bacteria (Auto) Salicylates Urine Opiates Screen Ur Methadone, Qual Acetaminophen Urine Barbiturates Ur Phencyclidine (PCP) U Amphetamin/Meth Scrn MDMA (Ecstasy) Screen U Benzodiazepines Scrn Regino Ramirez Ur Cocaine Metabolite U Marijuana (THC) Screen Ethyl Alcohol mg/dL SARS-CoV-2, RNA, NAAT NEGATIVE Hospital Course (1) Schizoaffective disorder, bipolar type: Plan -Continue clozapine 350mg HS -Continue Regino Ramirez Carbonate 1,500mg HS -Continue Haldol Decanoate 25mg IM JOSHI q28-30 days (last received 04/08/2023, next due ~05/09/2023) Mental Health & Subst Abuse Tx Psychiatrist Name of Psychiatrist: Kody Rogers Psychiatrist's Time of Appointment with Psychiatrist: Please follow-up as needed. Psychiatric Appointment Comment: [address] [place] [address] Therapist Name of Therapist: Cheko [facility] - [facility] Therapist's Therapy Appointment Comment: [address] [facility], [place] [address], [place] [address] Dry Heat Cabinet Attendant Name of Dry Heat Cabinet Attendant: [facility] Phone Number for Dry Heat Cabinet Attendant: [phone] Case Management Appointment Comment: Please resume your normal schedule. Post Discharge Appointments Primary Care Physician Name Of Family Doctor/PCP: Kody Dunn Primary Care Time of Appointment with PCP: Please follow-up as needed. Provider Appointment Comment: [address] [place] [address] Survey Operations Director Name of Survey Operations Director: [facility] Crisis Peer Phone Number of Survey Operations Director: [phone] Survey Operations Director Appointment Comment: Please resume your normal schedule. Contact Information Discharge Discharge [address]: [address] [place] [id number] Discharge Plan Discharge Items Patient Disposition: Home - Self-Care Reason For Visit: SCHIZOPHRENIA Discharge Diagnosis: Schizoaffective Disorder Activity: Resume your previous activity Non-emergency contact: Primary Care Provider, Psychiatrist and Therapist Call non-emergency contact if: you have any medication questions and your symptoms worsen Follow-up/Referrals: Brooke Dunn DO [Primary Care Provider] - Diet: Regular Addtl Attending Provider Instructions: You are being discharged to an extended acute care facility at [facility] to continue to work on disposition planning and coping skills. SPECIAL CARE INSTRUCTIONS: 1. Follow through with your scheduled aftercare appointments. If unable to keep an appointment, please call to reschedule. 2. Take your medication only as prescribed. Medication should not be changed or stopped without the approval of your doctor. In the event of worsening symptoms or concerns about side effects, contact your doctor immediately. 3. Utilize new healthy coping skills, anger management skills, and stress management skills learned during your hospitalization. Journal feelings and process them with a support person. Identify stressors or situations that may result in relapse, deterioration or inappropriate behaviors and develop a plan to deal with those issues. 4. If your coping skills are ineffective and you are in crisis, contact your outpatient providers for direction. If unable to reach your providers, please call the [facility] CRISIS LINE AT , go to the [facility] walk-in center at [address] [place] [address] [facility], or go to the closest Emergency Room. 5. Avoid alcohol and un-prescribed drugs. 6. You have been provided with the Mental Health Advance Directives Pamphlet for your review. 7. Your condition is stable for discharge to extended acute care inpatient level of care, but recovery is an ongoing process. Ifthoughts to harm yourself or others return, follow the safety plan developed during your stay. Planning for a safe return home includes securing weapons. Our treatment team recommends weaponsbe removed from the home until your outpatient provider reassesses your progress. WHO TO CALL AND WHEN: Medical Emergencies: For questions or emergencies related to your hospital stay, please contact the Inpatient Behavioral Health Unit at [phone]. A gis physical scientist is on-call 01/05 for the Behavioral Health Unit for emergencies At any time you feel your situation is an emergency, you may also call [phone] immediately. [facility] Crisis Line: [phone] Pending Studies at Discharge: No Stand-Alone Forms: My [facility] Medications and DC Order Prescriptions: New clozapine 100 mg Tablet 350 mg PO HS Qty: 1 0RF haloperidol decanoate 50 mg/mL Solution 25 mg IM Q28D Qty: 1 0RF lithium carbonate 300 mg Tablet Extended Release 1,500 mg PO HS Qty: 1 0RF Continued docusate sodium 250 mg capsule 250 mg PO DAILY PRN (Reason: constipation) 30 Days Qty: 30 0RF polyethylene glycol 3350 [Miralax] 17 gram Powder In Packet 17 g PO DAILY PRN (Reason: constipation ) 30 Days Qty: 30 0RF Discontinued aripiprazole 5 mg tablet 5 mg PO DAILY Rx Instructions: Take 1 tablet by mouth for 14 days and then stop for mood 03/10/23-03/23/23 clozapine 50 mg Tablet 50 mg PO HS Rx Instructions: Take 1 tablet by mouth once daily at bedtime for mood in addition to the 200 mg tablet. Total of 250 mg's at bedtime. clozapine 200 mg Tablet 200 mg PO HS Rx Instructions: Take 1 tablet by mouth at bedtime in addition to 50 mg teblet. Total of 250 mg's at bedtime. Abilify Maintena 400 mg Suspension,Extended Rel Syring 400 mg IM MONTHLY citalopram 20 mg Tablet 20 mg PO QAM 30 Days Qty: 30 0RF clozapine 100 mg Tablet 100 mg PO DAILY 30 Days Qty: 30 0RF lithium carbonate 300 mg Tablet Extended Release 600 mg PO QAM 30 Days Qty: 60 0RF lithium carbonate 450 mg Tablet Extended Release 900 mg PO HS 30 Days Qty: 60 0RF Discharge Orders: Discharge Order (Routine); Ordered 05/05/23 Ordered By: Michela Bloom Admission Data Admit Date/Time: 03/13/23 14:14 Attending Provider: Michela Bloom Admit Provider: Farrukh Carson Primary Care Provider: Brooke Dunn Coding Level of Care Code 85412 D/C day mgmt > 30 min Diagnoses Schizoaffective disorder, bipolar type F25.0 Time Spent (min) 33
== END 2023-05-05 11:20 | DRG 885 ==
LOC: ED 12:05 → SUATTDRO 14:14 → 3S 14:14

== ENCOUNTER 2023-12-01 10:13 | Inpatient (IN) ==
[2023-12-01 11:21] LABS: Basophils # (auto) 0.05 K/uL (0.00-0.20); Basophils % (auto) 0.5 %; Eosinophils # (auto) 0.02 K/uL (0.00-0.50); Eosinophils % (auto) 0.2 %; Hematocrit (blood only) 50.6 % (42.0-52.0); Hemoglobin 17.1 g/dl (14.0-18.0); Immature Granulocytes # (auto) 0.07 K/uL (0.01-0.20); Immature Granulocytes % (auto) 0.7 %; Lymphocytes # (auto) 1.88 K/uL (1.20-3.40); Lymphocytes % (auto) 17.8 %; Mean Corpuscular Hemoglobin 27.2 pg (25.0-34.0); Mean Corpuscular Hgb Conc 33.8 g/dL (32.0-36.0); Mean Corpuscular Volume 80.4 fL (80.0-100.0); Mean Platelet Volume 10.6 fL (9.4-12.4); Monocytes # (auto) 0.66 K/uL (0.11-0.59); Monocytes % (auto) 6.3 %; Neutrophils # (auto) 7.87 K/uL (1.40-6.50); Neutrophils % (auto) 74.5 %; Platelet Count 399 K/uL (130-400); RDW Coefficient of Variation 14.2 % (11.5-14.5); RDW Standard Deviation 40.1 fL (36.4-46.3); Red Blood Count 6.29 M/uL (4.70-6.10); White Blood Count 10.55 K/ul (4.8-10.8)
[2023-12-01 11:29] LABS: Alanine Aminotransferase 24 U/L (7-52); Albumin Globulin Ratio 1.8 (0.9-2); Alkaline Phosphatase 55 U/L (34-104); Anion Gap 9 (3-11); Aspartate Aminotransferase 26 U/L (13-39); BUN Creatinine Ratio 12.1 (10-20); Bilirubin,Total 0.8 mg/dl (0.2-1.0); Blood Urea Nitrogen 13 mg/dl (6-23); Calcium 10.2 mg/dl (8.6-10.3); Carbon Dioxide 26 mmol/L (21-32); Chloride 104 mmol/L (98-107); Creatinine Clr Calc Pharmacy 126.7 ml/min; Est GFR (African American) 108.9 ml/min; Globulin 2.8 gm/dl (2.5-4.0); Glucose 109 mg/dl (70-99(Fasting)); Sodium 139 mmol/L (136-145); Total Protein 7.8 gm/dl (6.0-8.3)
--- NOTE | 2023-12-01 12:21 | Emergency Department Note ---
Impression & Plan Suicidal ideation, Dizziness ED Provider Note HISTORY OF PRESENT ILLNESS: Patient is a 28-year-old male presenting with dizziness and suicidal ideation. Patient reports that he stopped taking his schizophrenic and bipolar medications 3 days ago. He reports that he thinks he was delusional and stopped taking them. He states that in the last 3 days he has had thoughts of wanting to end his life either by shooting himself or running out in traffic. He does not have access to any firearms. [place]. He describes the dizziness as seeing bursts of light in his vision that is been constant for the last 3 days. He denies any recent falls or head injury. Denies any chiropractic manipulation of his neck. Denies any chest pain or shortness of breath. He reports his last inpatient psychiatric admission was about 1 month ago at [facility]. He denies any previous suicide attempts. Does report self-harm behavior he reports that his dizziness and changes in vision have since resolved on my assessment. ROS: as above PHYSICAL EXAM: Constitutional: Patient appears in no acute distress. HENT: Head: Normocephalic and atraumatic. Eyes: EOMI, PERRL Mouth/Throat: Mucous membranes moist. Neck: Trachea midline. Neck supple. Musculoskeletal: No edema, tenderness or deformity noted. Skin: Warm and dry. No rash, erythema, pallor or cyanosis Psychiatric: Appropriate mood and affect for situation. Neurological: Alert and keenly responsive. CN II-XII grossly intact, moving all extremities equally and fully. MDM: - Vitals signs stable - History obtained via patient. Patient presents with dizziness and suicidal ideation. Patient reports he stopped taking his schizophrenic bipolar medications 3 days ago. He states that he thinks he was delusional when he stopped taking them. He states in the last 3 days he has been having thoughts of wanting to kill himself by either shooting himself or running out into traffic. He denies any access to firearms. He lives alone. He describes dizziness as seeing bright lights in his vision and constant for the last 3 days. Denies any recent falls or head injury. He denies any chest pain or shortness of breath. He reports his last inpatient psychiatric admission was about 1 month ago at [facility]. Denies any previous suicide attempts. He does report self-harm behavior - Chronic conditions affecting care: Bipolar disorder - Differential diagnoses include, but are not limited to: CVA; intracranial hemorrhage; ACS; UTI; electrolyte abnormality; dehydration; complex migraine - External medical records reviewed. - EKG interpreted by myself showed normal sinus rhythm. Rate 69 bpm. QT 362. No acute ischemic changes. - Laboratory workup interpreted by myself showed normal WBC; stable electrolytes; negative ethanol; normal lithium level - CT head wo contrast negative for acute intracranial pathology - UA negative for infection - COVID negative - UDS negative - Patient agreeable to voluntary inpatient psychiatric admission. He is being evaluated by [address] [place] [address] inpatient psychiatric unit, but they requested TSH to be performed. Patient is medically cleared from my part. He was signed out to Dr. Terry pending [address] [place] [address] assessment ASSESSMENT AND PLAN: Diagnosis: dizziness; suicidal ideation Past Med/Surg History Medical History Bipolar disorder Lab test negative for COVID-19 virus Suicidal ideation Surgical History No pertinent past surgical history Family History Other No pertinent family history in first degree relatives Social History Smoking Status: Never smoker Preferred Language: Haitian Communication Ability: Effective Sign Painter Required: No Beliefs That Will Affect Care: None Feels Safe at Home: Yes Gender Identity: Male Assistive Devices: None Allergies Allergies Allergy/AdvReac Type Severity Reaction Status Date / Time No Known Allergies Allergy Verified 12/20/22 12:07 Home Meds Previous Rx's Medication Instructions Recorded clozapine 100 mg tablet 350 mg (3.5 x 100 mg) PO HS #1 tab 05/05/23 haloperidol decanoate 50 mg/mL 25 mg (0.5 mL) IM Q28D #1 mL 05/05/23 intramuscular solution lithium carbonate 300 mg 1,500 mg (5 x 300 mg) PO HS #1 tab 05/05/23 tablet,extended release Results & Data (ED) Vital Signs Vital Signs - 24 hr 12/01/23 10:20 12/01/23 13:25 Temperature 36.9 C Temperature Source Oral Pulse Rate 82 Pulse Rate [Finger] 70 Respiratory Rate 20 16 Respiratory Effort / Characteristics Non-Labored Non-Labored Respiratory Depth Normal Normal Blood Pressure 118/81 Blood Pressure [Right Arm] 125/77 Blood Pressure Mean 93 Blood Pressure Mean [Right Arm] 93 Pulse Oximetry 100 98 Oxygen Delivery Method Room Air Room Air Sepsis Recent Fever Within 48 Hours No Sepsis New/Unexplained Change in Mental Status N/A Sepsis Action Taken by Nursing No Action Required Laboratory Data 12/01/23 10:49 12/01/23 10:49 Lab Results 12/01/23 12/01/23 12/01/23 Range/Units 10:49 12:28 12:34 WBC 10.55 (4.8-10.8) K/ul RBC 6.29 H (4.70-6.10) M/uL Hgb 17.1 (14.0-18.0) g/dl Hct 50.6 (42.0-52.0) % MCV 80.4 (80.0-100.0) fL MCH 27.2 (25.0-34.0) pg MCHC 33.8 (32.0-36.0) g/dL RDW Std Deviation 40.1 (36.4-46.3) fL RDW Coeff of Belén 14.2 (11.5-14.5) % Plt Count 399 (130-400) K/uL MPV 10.6 (9.4-12.4) fL Immature Gran % (Auto) 0.7 % Neut % (Auto) 74.5 % Lymph % (Auto) 17.8 % [place] % (Auto) 6.3 % Eos % (Auto) 0.2 % Baso % (Auto) 0.5 % Neut # (Auto) 7.87 H (1.40-6.50) K/uL Lymph # (Auto) 1.88 (1.20-3.40) K/uL [place] # (Auto) 0.66 H (0.11-0.59) K/uL Eos # (Auto) 0.02 (0.00-0.50) K/uL Baso # (Auto) 0.05 (0.00-0.20) K/uL Immature Gran # (Auto) 0.07 (0.01-0.20) K/uL Sodium 139 (136-145) mmol/L Potassium 4.0 (3.5-5.1) mmol/L Chloride 104 (98-107) mmol/L Carbon Dioxide 26 (21-32) mmol/L Anion Gap 9 (3-11) BUN 13 (6-23) mg/dl Creatinine 1.07 (0.6-1.4) mg/dl Est Cr Clr Drug Dosing 126.7 ml/min Est GFR ( Amer) 108.9 ml/min Est GFR (Non-Af Amer) 94.0 ml/min BUN/Creatinine Ratio 12.1 (10-20) Glucose 109 H (70-99(Fasting)) mg/dl Calcium 10.2 (8.6-10.3) mg/dl Magnesium 2.2 (1.7-2.4) mg/dl Total Bilirubin 0.8 (0.2-1.0) mg/dl AST 26 (13-39) U/L ALT 24 (7-52) U/L Alkaline Phosphatase 55 (34-104) U/L Troponin I High Sens < 2.3 (0-20) pg/ml Total Protein 7.8 (6.0-8.3) gm/dl Albumin 5.0 (3.4-5.0) gm/dl Globulin 2.8 (2.5-4.0) gm/dl Albumin/Globulin Ratio 1.8 (0.9-2) Urine Color Dark Yellow Urine Appearance Clear (Clear) Urine pH 6.0 (4.5-7.5) Ur Specific [place] 1.027 (1.000-1.030) Urine Protein Trace H (Negative) Urine Glucose (UA) Negative (Negative) Urine Ketones 4+ H (Negative) Urine Blood Negative (Negative) Urine Nitrite Negative (Negative) Urine Bilirubin 1+ H (Negative) Urine Urobilinogen Negative (Negative) Ur Leukocyte Esterase 1+ H (Negative) Urine WBC (Auto) 5-10 H (0-5) /hpf Urine RBC (Auto) 0-4 (0-4) /hpf U Hyaline Cast (Auto) 1-5 (0-5) /lpf U Epithel Cells (Auto) >30 H (0-5) /lpf Urine Bacteria (Auto) Negative (Negative) Urine Opiates Screen Neg (Neg) Ur Methadone, Qual Neg (Neg) Urine Barbiturates Neg (Neg) Ur Phencyclidine (PCP) Neg (Neg) U Amphetamin/Meth Scrn Neg (Neg) MDMA (Ecstasy) Screen Neg (Neg) U Benzodiazepines Scrn Neg (Neg) [place] 0.7 (0.6-1.2) mmol/L Ur Cocaine Metabolite Neg (Neg) U Marijuana (THC) Screen Neg (Neg) Ethyl Alcohol mg/dL < 10.0 (<10.0) mg/dl SARS-CoV-2, RNA, NAAT (NEGATIVE) 12/01/23 Range/Units Unknown WBC (4.8-10.8) K/ul RBC (4.70-6.10) M/uL Hgb (14.0-18.0) g/dl Hct (42.0-52.0) % MCV (80.0-100.0) fL MCH (25.0-34.0) pg MCHC (32.0-36.0) g/dL RDW Std Deviation (36.4-46.3) fL RDW Coeff of Belén (11.5-14.5) % Plt Count (130-400) K/uL MPV (9.4-12.4) fL Immature Gran % (Auto) % Neut % (Auto) % Lymph % (Auto) % [place] % (Auto) % Eos % (Auto) % Baso % (Auto) % Neut # (Auto) (1.40-6.50) K/uL Lymph # (Auto) (1.20-3.40) K/uL [place] # (Auto) (0.11-0.59) K/uL Eos # (Auto) (0.00-0.50) K/uL Baso # (Auto) (0.00-0.20) K/uL Immature Gran # (Auto) (0.01-0.20) K/uL Sodium (136-145) mmol/L Potassium (3.5-5.1) mmol/L Chloride (98-107) mmol/L Carbon Dioxide (21-32) mmol/L Anion Gap (3-11) BUN (6-23) mg/dl Creatinine (0.6-1.4) mg/dl Est Cr Clr Drug Dosing ml/min Est GFR ( Amer) ml/min Est GFR (Non-Af Amer) ml/min BUN/Creatinine Ratio (10-20) Glucose (70-99(Fasting)) mg/dl Calcium (8.6-10.3) mg/dl Magnesium (1.7-2.4) mg/dl Total Bilirubin (0.2-1.0) mg/dl AST (13-39) U/L ALT (7-52) U/L Alkaline Phosphatase (34-104) U/L Troponin I High Sens (0-20) pg/ml Total Protein (6.0-8.3) gm/dl Albumin (3.4-5.0) gm/dl Globulin (2.5-4.0) gm/dl Albumin/Globulin Ratio (0.9-2) Urine Color Urine Appearance (Clear) Urine pH (4.5-7.5) Ur Specific [place] (1.000-1.030) Urine Protein (Negative) Urine Glucose (UA) (Negative) Urine Ketones (Negative) Urine Blood (Negative) Urine Nitrite (Negative) Urine Bilirubin (Negative) Urine Urobilinogen (Negative) Ur Leukocyte Esterase (Negative) Urine WBC (Auto) (0-5) /hpf Urine RBC (Auto) (0-4) /hpf U Hyaline Cast (Auto) (0-5) /lpf U Epithel Cells (Auto) (0-5) /lpf Urine Bacteria (Auto) (Negative) Urine Opiates Screen (Neg) Ur Methadone, Qual (Neg) Urine Barbiturates (Neg) Ur Phencyclidine (PCP) (Neg) U Amphetamin/Meth Scrn (Neg) MDMA (Ecstasy) Screen (Neg) U Benzodiazepines Scrn (Neg) [place] (0.6-1.2) mmol/L Ur Cocaine Metabolite (Neg) U Marijuana (THC) Screen (Neg) Ethyl Alcohol mg/dL (<10.0) mg/dl SARS-CoV-2, RNA, NAAT NEGATIVE (NEGATIVE) Imaging Data Radiologist's Impression: Head CT 12/01/23 11:[address] DOSE: 625.8 mGy.cm HISTORY: dizziness; vision changes TECHNIQUE: Multiaxial CT images of the head were performed without the use of intravenous contrast. Automated exposure control was utilized for this study. A dose lowering technique was utilized adhering to the principles of ALARA. Comparison: None. Findings: The paranasal sinuses and mastoid air cells are clear. The calvarium and skull base are intact. The ventricles and sulci are within normal limits. There is no mass, hematoma, midline shift, or acute infarct. Impression: No acute intracranial abnormality. ACT 112: Negative or not required by law. Electronically signed by: Gildardo Robertson M.D. 12/01/2023 12:44 PM Discharge Plan Visit Data Chief Complaint: Mental Health Evaluation Stated Complaint: HALLUCINATING, DIZZY ED Provider: Mirna Landry Discharge Problem: Suicidal ideation, Dizziness Forms Stand Alone Forms: [facility], Suicide Prevention Resources Prescriptions Prescriptions: No Action clozapine 100 mg Tablet 350 mg PO HS Qty: 1 0RF lithium carbonate 300 mg Tablet Extended Release 1,500 mg PO HS Qty: 1 0RF haloperidol decanoate 50 mg/mL Solution 25 mg IM Q28D Qty: 1 0RF Referrals Referrals: Brooke Dunn DO [Primary Care Provider] -
[2023-12-01 12:25] LABS: Magnesium 2.2 mg/dl (1.7-2.4)
[2023-12-01 12:33] LABS: Troponin I High Sensitivity < 2.3 pg/ml (0-20)
--- NOTE | 2023-12-01 12:45 | CT Scan Report ---
HEAD CT NONCONTRAST CT DOSE: 625.8 mGy.cm HISTORY: dizziness; vision changes TECHNIQUE: Multiaxial CT images of the head were performed without the use of intravenous contrast. A utomated exposure control was utilized for this study. A dose lowering technique was utilized adheri ng to the principles of ALARA. Comparison: None. Findings: The paranasal sinuses and mastoid air cells are clear. The calvarium and skull base are int act. The ventricles and sulci are within normal limits. There is no mass, hematoma, midline shift, or acute infarct. Impression: No acute intracranial abnormality. ACT 112: Negative or not required by law. Electronically signed by: Gildardo Robertson M.D. 12/01/2023 12:44 PM
[2023-12-01 14:01] LABS: Appearance Urine Clear (Clear); Bacteria Urine Automated Negative (Negative); Blood Urine Negative (Negative); Color Urine Dark Yellow; Epithelial Cell Urine Auto >30 /lpf (0-5); Glucose Urine UA Negative (Negative); Ketones Urine 4+ (Negative); Leukocyte Esterase Urine 1+ (Negative); Nitrite Urine Negative (Negative); Protein Urine Trace (Negative); RBC Urine Automated 0-4 /hpf (0-4); Specific Gravity Urine 1.027 (1.000-1.030); Urobilinogen Urine Negative (Negative)
[2023-12-01 14:07] LABS: Bilirubin Urine 1+ (Negative)
[2023-12-01 14:15] LABS: Amphetamines+Metham, Urine Neg (Neg); Barbiturates, Urine Neg (Neg); Benzodiazepine, Urine Neg (Neg); Cocaine, Urine Neg (Neg); MDMA (Ecstacy), Urine Neg (Neg); Marijuana, Urine Neg (Neg); Methadone, Urine Neg (Neg); Opiate, Urine Neg (Neg); Phencyclidine, Urine Neg (Neg)
[2023-12-01 15:11] LABS: Thyroid Stimulating Hormone 1.397 uIu/ml (0.300-4.500)
[2023-12-01] MEDS ORDERED: SODIUM CHLORIDE 0.65% NA SOLN 45 ML (OCEAN) PRN (15:48)
[2023-12-01] MEDS ORDERED: MAGNESIUM HYDROXIDE SUSP 30 ML UDC PO PRN (15:48)
[2023-12-01] MEDS ORDERED: BISMUTH SUBSALICYLATE LIQD 236 ML PO PRN (15:48)
[2023-12-01] MEDS ORDERED: ALUMINUM/MAGNESIUM SUSP 30 ML UDC PO PRN (15:48)
[2023-12-01] MEDS ORDERED: ACETAMINOPHEN 325 MG TAB PO PRN (15:48)
[2023-12-01] MEDS ORDERED: BENZTROPINE MESYLATE 1 MG TAB PO PRN (15:51)
[2023-12-01] MEDS ORDERED: LORazepam 1 MG TAB PO PRN (15:51)
--- NOTE | 2023-12-01 17:01 | Electrocardiogram Report ---
Test Reason : Blood Pressure : / mmHG Vent. Rate : 069 BPM Atrial Rate : 069 BPM P-R Int : 180 ms QRS Dur : 086 ms QT Int : 362 ms P-R-T Axes : 044 056 016 degrees QTc Int : 387 ms Normal sinus rhythm Normal ECG When compared with ECG of 16-MAR-2023 13:29, No significant change was found Confirmed by Maurilio Kiser ([id number]) on 12/01/2023 5:01:13 PM Referred By: REFERRED SELF Confirmed By:Burke Kiser
[2023-12-01] MEDS: haloperidoL 5 MG TAB PO PRN (17:57)
--- NOTE | 2023-12-01 18:22 | Emergency Department Note ---
ED Visit Note I received signout from Dr. Landry the patient was a current 201 pending placement. Known history of schizophrenia lithium level normal currently off his meds for the last 3 days. Patient pending TSH and possible evaluation. TSH normal. Patient has had SI with plan. Patient was seen and evaluated by 3 S. and the patient was admitted to the medicine service Impression: Suicidal ideation with a plan, medication noncompliance .
[2023-12-01] MEDS ORDERED: cloZAPine 25 MG TAB PO SCH (21:00)
[2023-12-01] MEDS: cloZAPine 25 MG TAB PO SCH (22:06)
[2023-12-01] MEDS: LITHIUM CARBONATE 300 MG TAB PO SCH (22:06)
[2023-12-02 09:35] LABS: Chol HDL Ratio 3.9 (0-5)
--- NOTE | 2023-12-02 11:31 | History & Physical ---
Date of Service December 02, 2023 Impression / Recommendations Impression This gentleman has had a rough time with his thought disorder. He has been in hospitals almost continuously for a year now. It seems that when he was placed into an apartment by himself, he had difficulty functioning and possibly with his adherence to his medication. He cannot really tell me how many days he missed taking his medications. There does not seem to be a genetic predisposition towards schizophrenia. Mother and grandmother have had problems with depression which could make him more likely to have a bipolar illness. (1) Schizoaffective disorder, bipolar type: Plan 1. We will continue with her current level of observation and precautions. I advised the patient to try to take part in our therapeutic milieu, attend groups and activities, maintain good hygiene, and try not to isolate. This is going to be difficult for him. 2. We are still trying to track down the exact doses of his recent medications. I increased his clozapine up to 150 mg because it sounds like he is only missed a few days and I do not want to be too low of a dose. CBC with differential was done yesterday and was fine. We will monitor his CBCs every week. We are also going to switch all of his medications to just once a day after dinner to try to help with his adherence. It will be important to take the Latuda with food. I restarted Latuda at 40 mg at dinnertime. I also switched his lithium to 900 mg at dinnertime. We will check a lithium level in a few days. 3. We also talked about the possibility of starting electroconvulsive therapy (ECT). The combination of clozapine and ECT is probably the best treatment there is for schizophrenia. Also, both lithium and clozapine should decrease his chances of suicide significantly. 4. We will try to set up a family meeting before the patient leaves. He does seem to have some good services already set up. 5. We will need to try to get a better feel for how safe he is to live independently. Suicide Risk Level Suicide Risk Level: Moderate (q15 min suicide checks) Suicide Risk Level Comments: This young man's delusions and hallucinations are significantly distressing to him. I think he is at pretty moderate risk of suicide at this time. Protective Factors Assessment Employed: No Psychiatric History Identifying Data NASEEM MCGEE is a 28-year-old M who currently lives alone in an apartment in [place]. He has a history of schizoaffective disorder. He was admitted on 12/01/23 16:41 on a 304 outpatient commitment due to recent exacerbation of his psychotic symptoms. He also recently stopped taking them a few days ago. Chief Complaint "Hallucinations and I feel suicidal and delusional." History of Present Illness Today I met with the patient for about 40 minutes. We also had a multidisciplinary treatment team meeting to discuss his care. Patient has been with this multiple times before here on the psychiatric unit. He has a history of schizophrenia, bipolar disorder, and schizoaffective disorder. He presented to the emergency room yesterday with dizziness and suicidal ideation. He said that he stopped taking his medications about 3 days ago. He says he was feeling delusional. He also had thoughts about ending his life by shooting himself. He told me he also had thoughts about jumping in front of a moving truck. When I asked him more about his delusions, he says that they have to do with governments, aliens, and demons. He mostly is describing visual hallucinations with very little if any auditory hallucinations. He also has been having ideas of reference feeling like he is being tapped or people are monitoring his communications. He also describes some mild thought insertion and thought broadcasting. He has been hospitalized here several times and then spent 6 months at [facility]. He recently was placed into an apartment here in [place]. He is not working and is on SSI. He is not in a relationship. He says he sees his family about weekly and they are very supportive. He is not involved in any organized activities or congregational. He does take walks quite a bit. He has no major medical issues that are stressful and no legal issues. He says that his mother is only person he feels he can really open up to. He has been having a lot of difficulty with sleep because of these thoughts that are bothering him. He has a lot of initial insomnia and middle insomnia. He is appetite has been extremely poor and I think that is connected to his delusions. He describes his mood as "depressed and worried." He has anhedonia. Energy has been poor because of the lack of sleep. He spends a lot of time in bed. Concentration is very poor. He describes guilt and blames himself for what is happening. He also says he has some hopelessness. He denies homicidal thoughts. He is having suicidal ideation with the plan as I described above. He denies any self-harm. He says there is no history of any trauma or abuse. He does not smoke, drink, or use any illicit substances. He says he has had manic episodes that occur usually in the summertime and can last up to 3 weeks. During this time his mind will race, he has much less sleep, he has faster speech, grandiosity, in a good mood. He denies any disin hibited behaviors during those times. Past Psychiatric History Previous Psych History: Sounds like he has been diagnosed with schizophrenia or possibly schizoaffective disorder. Current Psychiatric Diagnosis: Schizophrenia Outpatient Services: He goes to [facility] for medication management and therapy. 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 Previous Psych Admissions: Patient has been here at [facility] multiple times. He says he believes this is his 10th lifetime hospitalization. He has been hospitalized at other facilities as well. Recently he was discharged from [facility] after being there for 6 months. History of Previous Suicide Attempt: No Past Medication Trials: He tells me that he has been on Zoloft, Abilify, Wellbutrin, Depakote, clozapine, lithium, and Latuda. He has never had ECT but it has been brought up in the past. Past Head Trauma/Neuro History No history of seizures. No history of head trauma with loss of consciousness. He denies any chronic medical issues, medical hospitalizations, or surgical procedures. Allergies Allergy/AdvReac Type Severity Reaction Status Date / Time No Known Allergies Allergy Verified 12/20/22 12:07 Home Medications Medication Instructions Recorded Confirmed Type clozapine 100 mg tablet 350 mg (3.5 x 100 mg) PO HS #1 tab 05/05/23 Rx haloperidol decanoate 50 mg/mL 25 mg (0.5 mL) IM Q28D #1 mL 05/05/23 Rx intramuscular solution lithium carbonate 300 mg 1,500 mg (5 x 300 mg) PO HS #1 tab 05/05/23 Rx tablet,extended release Family History Family History of: Depression (Mother and maternal grandmother) Alcohol History Hx of Alcohol Use Over the Past 12 Months: No Smoking Use Have You Smoked or Used Tobacco Products in the Last 30 Days: No Smoking Status: Never smoker Substance History Hx of Prescription Med Misuse Over the Past 12 Months: No Hx of Over the Counter Med Misuse Over the Past 12 Months: No Hx of Inhalent Misuse Over the Past 12 Months: No Hx of Organic Substance Use Over the Past 12 Months: No Hx of Illegal Substances/Street Drug Use Over Past 12 Months: No Problems as a Result of Past Substance Use: None Identified Personal History Living Arrangements: Apartment Beliefs That Will Affect Care: None Hx Legal Problems: No Hx Traumatic Life Events: No Additional Comments: The patient lives in [place] in an apartment by himself. He is on SSD. He is not in a relationship. He is not working. He has no legal issues. He is not involved in any organized activities. Mother is currently working as a director of radiology. Father is a physician. Patient History Medical History Suicidal ideation Suicidal ideation Lab test negative for COVID-19 virus Bipolar disorder Surgical History No pertinent past surgical history Family History Other No pertinent family history in first degree relatives Social History Smoking Status: Never smoker Preferred Language: Armenian Communication Ability: Effective Social Media Content Manager Required: No Beliefs That Will Affect Care: None Feels Safe at Home: Yes Gender Identity: Male Assistive Devices: None Review of Systems Review of Systems: Patient denied any cold or flu. No headache or fever. No problems with eyes, ears, nose, teeth, or swallowing. No pain or swelling in their neck. No wheezing, coughing, or shortness of breath. No chest pain, racing heartbeat, or irregular heart rate. No diarrhea, upset stomach, or constipation. No dysuria, problems emptying their bladder, initiating a urine stream, or hematuria; he says that his urination has been going down because he has not been eating or drinking much. No skin lesions. No concerns about an STD. No muscle weakness, numbness, tingling, or tremors. No broken bones. No problems with their joints. No problems with their feet. No bleeding problems. Physical Exam Psychiatric: Patient was alert and oriented x 3. He was clean and well-groomed. Eye contact was poor. He was laying on his bed looking at the ceiling through most of our conversation. Speech was normal. Mood was described as "depressed and worried." Affect was restricted. Thought process was paranoid but he wants help. He described visual hallucinations but denied auditory hallucinations. Patient has suicidal ideation as I described above. He denied any homicidal thoughts. Memory was good; he knew his date of , the president's name, and the capital of [place]. Concentration was good; he could spell the word world backwards pretty easily. No abnormal movements were seen. Gait was normal. Insight and judgment are impaired. Vital Signs (Past 24 Hours): Last Vital Signs Temp 36.6 C 12/02/23 06:43 Pulse 77 12/02/23 06:44 Resp 18 12/02/23 06:43 BP 115/76 12/02/23 06:44 Pulse Ox 100 12/01/23 16:47 O2 Del Method Room Air 12/01/23 16:47 Exam Statement: A physical exam was performed in the emergency department yesterday afternoon by Dr. Mirna Landry. Everything was completely normal. Results & Data ([facility]) Laboratory Results Laboratory Results - last 24 hr 12/01/23 12/01/23 12/01/23 10:49 12:28 12:34 WBC 10.55 RBC 6.29 H Hgb 17.1 Hct 50.6 MCV 80.4 MCH 27.2 MCHC 33.8 RDW Std Deviation 40.1 RDW Coeff of Belén 14.2 Plt Count 399 MPV 10.6 Immature Gran % (Auto) 0.7 Neut % (Auto) 74.5 Lymph % (Auto) 17.8 [place] % (Auto) 6.3 Eos % (Auto) 0.2 Baso % (Auto) 0.5 Neut # (Auto) 7.87 H Lymph # (Auto) 1.88 [place] # (Auto) 0.66 H Eos # (Auto) 0.02 Baso # (Auto) 0.05 Immature Gran # (Auto) 0.07 Sodium 139 Potassium 4.0 Chloride 104 Carbon Dioxide 26 Anion Gap 9 BUN 13 Creatinine 1.07 Est Cr Clr Drug Dosing 126.7 Est GFR ( Amer) 108.9 Est GFR (Non-Af Amer) 94.0 BUN/Creatinine Ratio 12.1 Glucose 109 H Fasting Glucose Calcium 10.2 Magnesium 2.2 Total Bilirubin 0.8 AST 26 ALT 24 Alkaline Phosphatase 55 Troponin I High Sens < 2.3 Total Protein 7.8 Albumin 5.0 Globulin 2.8 Albumin/Globulin Ratio 1.8 Triglycerides Cholesterol LDL Cholesterol, Calc VLDL Cholesterol, Calc HDL Cholesterol Cholesterol/HDL Ratio TSH 1.397 Urine Color Dark Yellow Urine Appearance Clear Urine pH 6.0 Ur Specific Smith 1.027 Urine Protein Trace H Urine Glucose (UA) Negative Urine Ketones 4+ H Urine Blood Negative Urine Nitrite Negative Urine Bilirubin 1+ H Urine Urobilinogen Negative Ur Leukocyte Esterase 1+ H Urine WBC (Auto) 5-10 H Urine RBC (Auto) 0-4 U Hyaline Cast (Auto) 1-5 U Epithel Cells (Auto) >30 H Urine Bacteria (Auto) Negative Urine Opiates Screen Neg Ur Methadone, Qual Neg Urine Barbiturates Neg Ur Phencyclidine (PCP) Neg U Amphetamin/Meth Scrn Neg MDMA (Ecstasy) Screen Neg U Benzodiazepines Scrn Neg [place] 0.7 Ur Cocaine Metabolite Neg U Marijuana (THC) Screen Neg Ethyl Alcohol mg/dL < 10.0 SARS-CoV-2, RNA, NAAT 12/01/23 12/02/23 Unknown 08:48 WBC RBC Hgb Hct MCV MCH MCHC RDW Std Deviation RDW Coeff of Belén Plt Count MPV Immature Gran % (Auto) Neut % (Auto) Lymph % (Auto) [place] % (Auto) Eos % (Auto) Baso % (Auto) Neut # (Auto) Lymph # (Auto) [place] # (Auto) Eos # (Auto) Baso # (Auto) Immature Gran # (Auto) Sodium Potassium Chloride Carbon Dioxide Anion Gap BUN Creatinine Est Cr Clr Drug Dosing Est GFR ( Amer) Est GFR (Non-Af Amer) BUN/Creatinine Ratio Glucose Fasting Glucose 99 Calcium Magnesium Total Bilirubin AST ALT Alkaline Phosphatase Troponin I High Sens Total Protein Albumin Globulin Albumin/Globulin Ratio Triglycerides 116 Cholesterol 131 LDL Cholesterol, Calc 74 VLDL Cholesterol, Calc 23 HDL Cholesterol 34 Cholesterol/HDL Ratio 3.9 TSH Urine Color Urine Appearance Urine pH Ur Specific Smith Urine Protein Urine Glucose (UA) Urine Ketones Urine Blood Urine Nitrite Urine Bilirubin Urine Urobilinogen Ur Leukocyte Esterase Urine WBC (Auto) Urine RBC (Auto) U Hyaline Cast (Auto) U Epithel Cells (Auto) Urine Bacteria (Auto) Urine Opiates Screen Ur Methadone, Qual Urine Barbiturates Ur Phencyclidine (PCP) U Amphetamin/Meth Scrn MDMA (Ecstasy) Screen U Benzodiazepines Scrn [place] Ur Cocaine Metabolite U Marijuana (THC) Screen Ethyl Alcohol mg/dL SARS-CoV-2, RNA, NAAT NEGATIVE Diagnostic Findings HEAD CT NONCONTRAST 12/01/23 CT DOSE: 625.8 mGy.cm HISTORY: dizziness; vision changes TECHNIQUE: Multiaxial CT images of the head were performed without the use of intravenous contrast. Automated exposure control was utilized for this study. A dose lowering technique was utilized adhering to the principles of ALARA. Comparison: None. Findings: The paranasal sinuses and mastoid air cells are clear. The calvarium and skull base are intact. The ventricles and sulci are within normal limits. There is no mass, hematoma, midline shift, or acute infarct. Impression: No acute intracranial abnormality. Current Inpatient Medications Current Inpatient Medications: Current Inpatient Medications Acetaminophen (Acetaminophen 325 Mg Tab) 650 mg PO Q4H PRN PRN Reason: Headache or Minor Fever Stop: 12/31/23 15:47 Al Hydrox/Mg Hydrox/Simethicone (Aluminum/Magnesium Susp 30 Ml Udc) 30 ml PO Q4H PRN PRN Reason: GI Upset Stop: 12/31/23 15:47 Benztropine Mesylate (Benztropine Mesylate 1 Mg Tab) 1 mg PO Q6H PRN PRN Reason: Muscle Spasm Stop: 12/31/23 15:50 Bismuth Subsalicylate (Bismuth Subsalicylate Liqd 236 Ml) 15 ml PO PRN PRN PRN Reason: Loose Stool Stop: 12/31/23 15:47 Haloperidol (Haloperidol 5 Mg Tab) 5 mg PO Q4H PRN PRN Reason: hallucinations Stop: 12/31/23 15:50 Last Admin: 12/01/23 17:57 Dose: 5 mg [place] Carbonate ([place] Carbonate 300 Mg Tab) 900 mg PO HS VIVIAN Stop: 12/31/23 20:59 Last Admin: 12/01/23 22:06 Dose: 900 mg Lorazepam (Lorazepam 1 Mg Tab) 1 mg PO Q4H PRN PRN Reason: Anxiety/Insomnia Stop: 12/31/23 15:50 Magnesium Hydroxide (Magnesium Hydroxide Susp 30 Ml Udc) 30 ml PO DAILY PRN PRN Reason: Constipation Stop: 12/31/23 15:47 Sodium Chloride (Sodium Chloride 0.65% Na Soln 45 Ml ([place])) 1 - 2 sprays NA PRN PRN PRN Reason: Nasal Dryness/Congestion Stop: 12/31/23 15:47
[2023-12-02] MEDS: cloZAPine 100 MG TAB PO SCH (17:49)
[2023-12-02] MEDS: LITHIUM CARBONATE 300 MG TAB PO SCH (17:50)
[2023-12-02] MEDS: LURASIDONE HCL 20 MG TAB PO SCH (17:51)
[2023-12-02] MEDS ORDERED: LURASIDONE HCL 20 MG TAB PO SCH (18:00)
[2023-12-02] MEDS ORDERED: cloZAPine 25 MG TAB PO SCH (18:00)
[2023-12-02] MEDS ORDERED: LITHIUM CARBONATE 300 MG TAB PO SCH (18:00)
[2023-12-03 06:39] VITALS: RESP 16
--- NOTE | 2023-12-03 10:42 | Psychiatric Progress Note ---
Date of Service December 03, 2023 Impression / Recommendations Impression This gentleman has had a rough time with his thought disorder. He has been in hospitals almost continuously for a year now. It seems that when he was placed into an apartment by himself, he had difficulty functioning and possibly with his adherence to his medication. He cannot really tell me how many days he missed taking his medications. There does not seem to be a genetic predisposition towards schizophrenia. Mother and grandmother have had problems with depression which could make him more likely to have a bipolar illness. 12/03/23: Patient has had some minor relief since we restarted his medication. We are also seeing him eat better and drink better. He is also coming out of his room a little bit more into participating groups which is a good sign. (1) Schizoaffective disorder, bipolar type: Plan 12/02/23: 1. We will continue with her current level of observation and precautions. I advised the patient to try to take part in our therapeutic milieu, attend groups and activities, maintain good hygiene, and try not to isolate. This is going to be difficult for him. 2. We are still trying to track down the exact doses of his recent medications. I increased his clozapine up to 150 mg because it sounds like he is only missed a few days and I do not want to be too low of a dose. CBC with differential was done yesterday and was fine. We will monitor his CBCs every week. We are also going to switch all of his medications to just once a day after dinner to try to help with his adherence. It will be important to take the Latuda with food. I restarted Latuda at 40 mg at dinnertime. I also switched his lithium to 900 mg at dinnertime. We will check a lithium level in a few days. 3. We also talked about the possibility of starting electroconvulsive therapy (ECT). The combination of clozapine and ECT is probably the best treatment there is for schizophrenia. Also, both lithium and clozapine should decrease his chances of suicide significantly. 4. We will try to set up a family meeting before the patient leaves. He does seem to have some good services already set up. 5. We will need to try to get a better feel for how safe he is to live independently. 12/03/23: We are going to continue with her current level of observation and precautions. I am going to leave the doses of medication as they are for a few days and then check a clozapine level and lithium level on December 06. Hopefully, we will continue to see more improvement. I encouraged the patient to continue to go to groups and activities is much as he can. He is also working on his hygiene still. Will try to set up a family meeting in the next few days. He will likely have a 304 conversion to inpatient early this week. Today I spent about 40 minutes on the case. This included meeting with the patient, reviewing the chart, nursing report, multidisciplinary staff meeting, orders, and documentation. Suicide Risk Level Suicide Risk Level: Moderate (q15 min suicide checks) Suicide Risk Level Comments: This young man's delusions and hallucinations are significantly distressing to him. I think he is at pretty moderate risk of suicide at this time. Risk Factors Assessment Do You Have Access To A Gun?: No Protective Factors Assessment Employed: No Interval History Identifying Information NASEEM MCGEE is a 28-year-old M who currently lives alone in an apartment in [place]. He has a history of schizoaffective disorder. He was admitted on 12/01/23 16:41 on a 304 outpatient commitment due to recent exacerbation of his psychotic symptoms. He also recently stopped taking them a few days ago. Chief Complaint "Hallucinations and I feel suicidal and delusional." Review of Systems Sleep Information Total Hours of Sleep: 8.25 Meal Information Percent Meal Consumed - Breakfast: 25 Percent Meal Consumed - Lunch: 75 Percent Meal Consumed - Dinner: 90 Subjective Subjective Today I met with the patient, received nursing report, and reviewed his chart. We also had a multidisciplinary staff meeting to discuss his care. Naseem is in our hospital due to worsening psychotic symptoms, especially after he stopped taking his medications a few days before admission. Staff report that he has been walking in the hallways quite a bit. He is pleasant and cooperative. He has been taking his medications reliably. He has even been attending some of the groups. He slept well and may have gone to bed a little bit early after he took his meds after dinner. Staff still see him internally stimulated and sometimes laughing at things that are not there. He came to us on an outpatient 304 which will likely have a conversion hearing in the next few days. When I met with the patient this morning, he said that he took his medications after dinner last night and tolerated them okay. He says that the visual hallucinations have gone from severe down to moderate at this point. He denies any auditory hallucinations. He denies any ideas of reference or thought broadcasting, but he is having feelings of thought removal. He was able to sleep and he felt like his appetite is improved. He is also making a good effort to drink fluids. He described his mood today as "distant, depressed, and defeated." He denies any medical issues. He is trying his hardest to go to some groups but he says he gets paranoid in the groups. He says his suicidal thoughts have dropped from 8 down to 5-6 out of 10. He denies any homicidal thoughts. He had a good call with his mother yesterday. Physical Exam Psychiatric Patient was alert and cooperative. He was clean and well-groomed. Eye contact was somewhat better. Speech was normal. Mood was described as "distant, depressed, and defeated." Affect was still restricted. Thought process seems logical and a little bit more goal-directed. He described visual hallucinations but denied auditory hallucinations. Patient described suicidal ideation as I listed above. He denied any homicidal thoughts. Memory and concentration were good. No abnormal movements were seen. Gait was normal. Insight and judgment are impaired. Vital Signs (Past 24 Hours) Last Vital Signs Temp 36.9 C 12/03/23 06:37 Pulse 86 12/03/23 06:38 Resp 16 12/03/23 06:37 BP 109/72 12/03/23 06:38 Pulse Ox 100 12/01/23 16:47 O2 Del Method Room Air 12/01/23 16:47 Results & Data ([facility] [place]) Current Inpatient Medications Current Inpatient Medications: Current Inpatient Medications Acetaminophen (Acetaminophen 325 Mg Tab) 650 mg PO Q4H PRN PRN Reason: Headache or Minor Fever Stop: 12/31/23 15:47 Al Hydrox/Mg Hydrox/Simethicone (Aluminum/Magnesium Susp 30 Ml Udc) 30 ml PO Q4H PRN PRN Reason: GI Upset Stop: 12/31/23 15:47 Benztropine Mesylate (Benztropine Mesylate 1 Mg Tab) 1 mg PO Q6H PRN PRN Reason: Muscle Spasm Stop: 12/31/23 15:50 Bismuth Subsalicylate (Bismuth Subsalicylate Liqd 236 Ml) 15 ml PO PRN PRN PRN Reason: Loose Stool Stop: 12/31/23 15:47 Clozapine (Clozapine 100 Mg Tab) 200 mg PO DAILY@1800 VIVIAN; Protocol Stop: 01/01/24 17:59 Last Admin: 12/02/23 17:49 Dose: 200 mg Haloperidol (Haloperidol 5 Mg Tab) 5 mg PO Q4H PRN PRN Reason: hallucinations Stop: 12/31/23 15:50 Last Admin: 12/01/23 17:57 Dose: 5 mg [place] Carbonate ([place] Carbonate 300 Mg Tab) 1,200 mg PO DAILY@1800 VIVIAN Stop: 01/01/24 17:59 Last Admin: 12/02/23 17:50 Dose: 1,200 mg Lorazepam (Lorazepam 1 Mg Tab) 1 mg PO Q4H PRN PRN Reason: Anxiety/Insomnia Stop: 12/31/23 15:50 Lurasidone HCl (Lurasidone Hcl 20 Mg Tab) 60 mg PO DAILY@1800 VIVIAN Stop: 01/01/24 17:59 Last Admin: 12/02/23 17:51 Dose: 60 mg Magnesium Hydroxide (Magnesium Hydroxide Susp 30 Ml Udc) 30 ml PO DAILY PRN PRN Reason: Constipation Stop: 12/31/23 15:47 Sodium Chloride (Sodium Chloride 0.65% Na Soln 45 Ml ([place])) 1 - 2 sprays NA PRN PRN PRN Reason: Nasal Dryness/Congestion Stop: 12/31/23 15:47 Mental Health & Subst Abuse Tx Medicare Nurse Name of Medicare Nurse: Noelle ([facility]) Post Discharge Appointments Primary Care Physician Name Of Family Doctor/PCP: Brooke Dunn
[2023-12-03] MEDS ORDERED: LURASIDONE HCL 20 MG TAB PO SCH ×2 (11:30→18:00)
[2023-12-03] MEDS ORDERED: LITHIUM CARBONATE 300 MG TAB PO SCH (18:00)
--- NOTE | 2023-12-04 17:58 | Psychiatric Progress Note ---
Date of Service December 04, 2023 Impression / Recommendations Impression This gentleman has had a rough time with his thought disorder. He has been in hospitals almost continuously for a year now. It seems that when he was placed into an apartment by himself, he had difficulty functioning and possibly with his adherence to his medication. He cannot really tell me how many days he missed taking his medications. There does not seem to be a genetic predisposition towards schizophrenia. Mother and grandmother have had problems with depression which could make him more likely to have a bipolar illness. 12/03/23: Patient has had some minor relief since we restarted his medication. We are also seeing him eat better and drink better. He is also coming out of his room a little bit more into participating groups which is a good sign. 12/04/23: Patient is having slow, steady improvement. He is tolerating his meds well. He is also trying to do what he can going to groups and activities. He is now on a 304 inpatient commitment. (1) Schizoaffective disorder, bipolar type: Plan 12/02/23: 1. We will continue with her current level of observation and precautions. I advised the patient to try to take part in our therapeutic milieu, attend groups and activities, maintain good hygiene, and try not to isolate. This is going to be difficult for him. 2. We are still trying to track down the exact doses of his recent medications. I increased his clozapine up to 150 mg because it sounds like he is only missed a few days and I do not want to be too low of a dose. CBC with differential was done yesterday and was fine. We will monitor his CBCs every week. We are also going to switch all of his medications to just once a day after dinner to try to help with his adherence. It will be important to take the Latuda with food. I restarted Latuda at 40 mg at dinnertime. I also switched his lithium to 900 mg at dinnertime. We will check a lithium level in a few days. 3. We also talked about the possibility of starting electroconvulsive therapy (ECT). The combination of clozapine and ECT is probably the best treatment there is for schizophrenia. Also, both lithium and clozapine should decrease his chances of suicide significantly. 4. We will try to set up a family meeting before the patient leaves. He does seem to have some good services already set up. 5. We will need to try to get a better feel for how safe he is to live independently. 12/03/23: We are going to continue with her current level of observation and precautions. I am going to leave the doses of medication as they are for a few days and then check a clozapine level and lithium level on December 06. Hopefully, we will continue to see more improvement. I encouraged the patient to continue to go to groups and activities is much as he can. He is also working on his hygiene still. Will try to set up a family meeting in the next few days. He will likely have a 304 conversion to inpatient early this week. 12/04/23: We are going to continue with his current level of observation and precautions. We will leave the doses of his medications as they are and he is due for a clozapine level and lithium level on December 06. I encouraged him to keep doing what he is doing to try to get better and show that he is working hard. In the near future we will set up a family meeting to work on discharge planning and safety planning. Today I spent about 36 minutes on the case. This included meeting with the patient, reviewing the chart, nursing report, multidisciplinary treatment team meeting, orders, and documentation. Suicide Risk Level Suicide Risk Level: Moderate (q15 min suicide checks) Suicide Risk Level Comments: This young man's delusions and hallucinations are significantly distressing to him. I think he is at pretty moderate risk of suicide at this time. Risk Factors Assessment Do You Have Access To A Gun?: No Protective Factors Assessment Employed: No Interval History Identifying Information NASEEM MCGEE is a 28-year-old M who currently lives alone in an apartment in [place]. He has a history of schizoaffective disorder. He was admitted on 12/01/23 16:41 on a 304 outpatient commitment due to recent exacerbation of his psychotic symptoms. He also recently stopped taking them a few days ago. Chief Complaint "Hallucinations and I feel suicidal and delusional." Review of Systems Sleep Information Total Hours of Sleep: 6.5 Meal Information Percent Meal Consumed - Breakfast: 100 Percent Meal Consumed - Lunch: 100 Percent Meal Consumed - Dinner: 100 Subjective Subjective Today I met with the patient, received nursing report, and reviewed his chart. We also had a multidisciplinary treatment team meeting to discuss his care. Naseem is in our hospital due to worsening psychotic symptoms, especially after he stopped taking his medications a few days before admission. Staff report that he is doing okay on the unit. He still having suicidal thoughts. He has been pleasant and cooperative. He is tolerating medication adjustments. Staff often see him walking around on the unit. They also see him responding to internal stimuli. He has been maintaining his hygiene. He slept well and is eating. Staff told me later in the day that he does not believe that I, his psychiatrist, is a real person. When I met with him this morning, he said that his appetite is lower but he is eating. He is told me that he was able to sleep as well. He described his mood is "not happy but recovering." He says the hallucinations are lower but he is still having the same paranoid thoughts. He described his mood at 4-5 out of 10 where 10 would be the best mood ever. He describes suicidal thoughts at 5 out of 10 where 10 is the worst it could ever be. He denied any homicidal thoughts. He says he is trying hard to continue to go to groups and activities. He had no visits from family. He denies any medical issues. We also had a hearing for a conversion to 304 inpatient status. Physical Exam Psychiatric Patient was alert and cooperative. He was clean and well-groomed. Eye contact was fair to good. Speech was normal. Mood was described as "not happy but recovering." Affect was still restricted. Thought process seems logical and somewhat goal-directed. He described visual hallucinations but denied auditory hallucinations. The patient is still delusional. Patient described suicidal ideation as I listed above. He denied any homicidal thoughts. Memory and concentration were good. No abnormal movements were seen. Gait was normal. Insight and judgment are impaired. Vital Signs (Past 24 Hours) Last Vital Signs Temp 36.4 C L 12/04/23 07:01 Pulse 79 12/04/23 07:01 Resp 16 12/04/23 07:01 BP 107/70 12/04/23 07:01 Pulse Ox 100 12/01/23 16:47 O2 Del Method Room Air 12/01/23 16:47 Results & Data ([facility]) Current Inpatient Medications Current Inpatient Medications: Current Inpatient Medications Acetaminophen (Acetaminophen 325 Mg Tab) 650 mg PO Q4H PRN PRN Reason: Headache or Minor Fever Stop: 12/31/23 15:47 Al Hydrox/Mg Hydrox/Simethicone (Aluminum/Magnesium Susp 30 Ml Udc) 30 ml PO Q4H PRN PRN Reason: GI Upset Stop: 12/31/23 15:47 Benztropine Mesylate (Benztropine Mesylate 1 Mg Tab) 1 mg PO Q6H PRN PRN Reason: Muscle Spasm Stop: 12/31/23 15:50 Bismuth Subsalicylate (Bismuth Subsalicylate Liqd 236 Ml) 15 ml PO PRN PRN PRN Reason: Loose Stool Stop: 12/31/23 15:47 Clozapine (Clozapine 100 Mg Tab) 200 mg PO DAILY@1800 VIVIAN; Protocol Stop: 01/01/24 17:59 Last Admin: 12/03/23 18:13 Dose: 200 mg Haloperidol (Haloperidol 5 Mg Tab) 5 mg PO Q4H PRN PRN Reason: hallucinations Stop: 12/31/23 15:50 Last Admin: 12/01/23 17:57 Dose: 5 mg [place] Carbonate ([place] Carbonate 300 Mg Tab) 1,200 mg PO DAILY@1800 VIVIAN Stop: 01/01/24 17:59 Last Admin: 12/03/23 18:12 Dose: 1,200 mg Lorazepam (Lorazepam 1 Mg Tab) 1 mg PO Q4H PRN PRN Reason: Anxiety/Insomnia Stop: 12/31/23 15:50 Lurasidone HCl (Lurasidone Hcl 20 Mg Tab) 60 mg PO DAILY@1800 VIVIAN Stop: 01/01/24 17:59 Last Admin: 12/03/23 18:11 Dose: 60 mg Magnesium Hydroxide (Magnesium Hydroxide Susp 30 Ml Udc) 30 ml PO DAILY PRN PRN Reason: Constipation Stop: 12/31/23 15:47 Sodium Chloride (Sodium Chloride 0.65% Na Soln 45 Ml ([place])) 1 - 2 sprays NA PRN PRN PRN Reason: Nasal Dryness/Congestion Stop: 12/31/23 15:47 Mental Health & Subst Abuse Tx Gasket Winder Name of Gasket Winder: Noelle ([facility] CM) Post Discharge Appointments Primary Care Physician Name Of Family Doctor/PCP: Brooke Dunn
--- NOTE | 2023-12-05 17:32 | Psychiatric Progress Note ---
Date of Service December 05, 2023 Impression / Recommendations Impression This gentleman has had a rough time with his thought disorder. He has been in hospitals almost continuously for a year now. It seems that when he was placed into an apartment by himself, he had difficulty functioning and possibly with his adherence to his medication. He cannot really tell me how many days he missed taking his medications. There does not seem to be a genetic predisposition towards schizophrenia. Mother and grandmother have had problems with depression which could make him more likely to have a bipolar illness. 12/03/23: Patient has had some minor relief since we restarted his medication. We are also seeing him eat better and drink better. He is also coming out of his room a little bit more into participating groups which is a good sign. 12/04/23: Patient is having slow, steady improvement. He is tolerating his meds well. He is also trying to do what he can going to groups and activities. He is now on a 304 inpatient commitment. 12/05/23: Patient is still not doing very well and is still delusional. I feel uncomfortable letting him live by himself at this point as well. I do not know other options currently. We will discuss this in her treatment team meeting tomorrow. He is attending groups and activities and at least trying hard to get better. However, he is pretty wrapped up internally with a lot of internal stimulation. (1) Schizoaffective disorder, bipolar type: Plan 12/02/23: 1. We will continue with her current level of observation and precautions. I advised the patient to try to take part in our therapeutic milieu, attend groups and activities, maintain good hygiene, and try not to isolate. This is going to be difficult for him. 2. We are still trying to track down the exact doses of his recent medications. I increased his clozapine up to 150 mg because it sounds like he is only missed a few days and I do not want to be too low of a dose. CBC with differential was done yesterday and was fine. We will monitor his CBCs every week. We are also going to switch all of his medications to just once a day after dinner to try to help with his adherence. It will be important to take the Latuda with food. I restarted Latuda at 40 mg at dinnertime. I also switched his lithium to 900 mg at dinnertime. We will check a lithium level in a few days. 3. We also talked about the possibility of starting electroconvulsive therapy (ECT). The combination of clozapine and ECT is probably the best treatment there is for schizophrenia. Also, both lithium and clozapine should decrease his chances of suicide significantly. 4. We will try to set up a family meeting before the patient leaves. He does seem to have some good services already set up. 5. We will need to try to get a better feel for how safe he is to live independently. 12/03/23: We are going to continue with her current level of observation and precautions. I am going to leave the doses of medication as they are for a few days and then check a clozapine level and lithium level on December 06. Hopefully, we will continue to see more improvement. I encouraged the patient to continue to go to groups and activities is much as he can. He is also working on his hygiene still. Will try to set up a family meeting in the next few days. He will likely have a 304 conversion to inpatient early this week. 12/04/23: We are going to continue with his current level of observation and precautions. We will leave the doses of his medications as they are and he is due for a clozapine level and lithium level on December 06. I encouraged him to keep doing what he is doing to try to get better and show that he is working hard. In the near future we will set up a family meeting to work on discharge planning and safety planning. 12/05/23: We will continue with her current level of observation and precautions. We will continue with his current doses of medications but he has a clozapine level and lithium level tomorrow morning. I encouraged him to keep going to groups and activities. We are going to look at other options because I do not think he will be able to live independently when he gets out of the hospital. We should get his family involved in that as well. Today I spent about 38 minutes on the case. This included meeting with the patient, reviewing the chart, nursing report, multidisciplinary staff meeting, orders, and documentation. Suicide Risk Level Suicide Risk Level: Moderate (q15 min suicide checks) Suicide Risk Level Comments: This young man's delusions and hallucinations are significantly distressing to him. I think he is at pretty moderate risk of suicide at this time. Risk Factors Assessment Do You Have Access To A Gun?: No Protective Factors Assessment Employed: No Interval History Identifying Information NASEEM MCGEE is a 28-year-old M who currently lives alone in an apartment in [place]. He has a history of schizoaffective disorder. He was admitted on 12/01/23 16:41 on a 304 outpatient commitment due to recent exacerbation of his psychotic symptoms. He also recently stopped taking them a few days ago. Chief Complaint "I do not believe that you are real." Review of Systems Sleep Information Total Hours of Sleep: 8.30 Meal Information Percent Meal Consumed - Breakfast: 50 Percent Meal Consumed - Lunch: 100 Percent Meal Consumed - Dinner: 100 Subjective Subjective Today I met with the patient, received nursing report, and reviewed his chart. We also had a multidisciplinary staff meeting to discuss his care. Naseem is in our hospital due to worsening psychotic symptoms, especially after he stopped taking his medications a few days before admission. Staff report that he still pretty delusional and often seen attending to hallucinations. The patient's radha az came and is discussing disability with the social service agency director here on the unit today. They are also very worried about him living independently right now because of how poorly he has been doing. The behavioral health case manager was wondering about state hospitalization is the next viable option. Patient slept well he is eating and drinking well. When I met with him today he says that he is still having problems with aliens, demons, and the government He wanted to make sure I understood that he does not think that I am a real. He described his mood with me today as "confused." He admits that he is sleeping well and eating well. Today he described his suicidal ideation at 6 out of 10 but denied any homicidal thoughts. He still tolerating his medications well and he knows that he will have a blood draw tomorrow to check clozapine and lithium. Physical Exam Psychiatric Patient was alert and cooperative. He was clean and well-groomed. Eye contact was fair to good. Speech was normal. Mood was described as "confused." Affect was still restricted. Thought process seems logical and somewhat goal-directed, but definitely delusional too. He described visual hallucinations but denied auditory hallucinations. Patient described suicidal ideation as I listed above. He denied any homicidal thoughts. Memory and concentration were good. No abnormal movements were seen. Gait was normal. Insight and judgment are impaired. Vital Signs (Past 24 Hours) Last Vital Signs Temp 36.5 C 12/05/23 06:31 Pulse 79 12/05/23 06:31 Resp 16 12/05/23 06:31 BP 115/75 12/05/23 06:31 Pulse Ox 100 12/01/23 16:47 O2 Del Method Room Air 12/01/23 16:47 Results & Data ([facility]) Current Inpatient Medications Current Inpatient Medications: Current Inpatient Medications Acetaminophen (Acetaminophen 325 Mg Tab) 650 mg PO Q4H PRN PRN Reason: Headache or Minor Fever Stop: 12/31/23 15:47 Al Hydrox/Mg Hydrox/Simethicone (Aluminum/Magnesium Susp 30 Ml Udc) 30 ml PO Q4H PRN PRN Reason: GI Upset Stop: 12/31/23 15:47 Benztropine Mesylate (Benztropine Mesylate 1 Mg Tab) 1 mg PO Q6H PRN PRN Reason: Muscle Spasm Stop: 12/31/23 15:50 Bismuth Subsalicylate (Bismuth Subsalicylate Liqd 236 Ml) 15 ml PO PRN PRN PRN Reason: Loose Stool Stop: 12/31/23 15:47 Clozapine (Clozapine 100 Mg Tab) 200 mg PO DAILY@1800 VIVIAN; Protocol Stop: 01/01/24 17:59 Last Admin: 12/04/23 17:52 Dose: 200 mg Haloperidol (Haloperidol 5 Mg Tab) 5 mg PO Q4H PRN PRN Reason: hallucinations Stop: 12/31/23 15:50 Last Admin: 12/01/23 17:57 Dose: 5 mg [place] Carbonate ([place] Carbonate 300 Mg Tab) 1,200 mg PO DAILY@1800 VIVIAN Stop: 01/01/24 17:59 Last Admin: 12/04/23 17:52 Dose: 1,200 mg Lorazepam (Lorazepam 1 Mg Tab) 1 mg PO Q4H PRN PRN Reason: Anxiety/Insomnia Stop: 12/31/23 15:50 Lurasidone HCl (Lurasidone Hcl 20 Mg Tab) 60 mg PO DAILY@1800 VIVIAN Stop: 01/01/24 17:59 Last Admin: 12/04/23 17:54 Dose: 60 mg Magnesium Hydroxide (Magnesium Hydroxide Susp 30 Ml Udc) 30 ml PO DAILY PRN PRN Reason: Constipation Stop: 12/31/23 15:47 Sodium Chloride (Sodium Chloride 0.65% Na Soln 45 Ml ([place])) 1 - 2 sprays NA PRN PRN PRN Reason: Nasal Dryness/Congestion Stop: 12/31/23 15:47 Mental Health & Subst Abuse Tx Library Circulation Clerk Name of Library Circulation Clerk: Noelle ([facility] CM) Post Discharge Appointments Primary Care Physician Name Of Family Doctor/PCP: Brooke Dunn
--- NOTE | 2023-12-06 12:19 | Psychiatric Progress Note ---
Date of Service December 06, 2023 Impression / Recommendations Impression This gentleman has had a rough time with his thought disorder. He has been in hospitals almost continuously for a year now. It seems that when he was placed into an apartment by himself, he had difficulty functioning and possibly with his adherence to his medication. He cannot really tell me how many days he missed taking his medications. There does not seem to be a genetic predisposition towards schizophrenia. Mother and grandmother have had problems with depression which could make him more likely to have a bipolar illness. 12/03/23: Patient has had some minor relief since we restarted his medication. We are also seeing him eat better and drink better. He is also coming out of his room a little bit more into participating groups which is a good sign. 12/04/23: Patient is having slow, steady improvement. He is tolerating his meds well. He is also trying to do what he can going to groups and activities. He is now on a 304 inpatient commitment. 12/05/23: Patient is still not doing very well and is still delusional. I feel uncomfortable letting him live by himself at this point as well. I do not know other options currently. We will discuss this in her treatment team meeting tomorrow. He is attending groups and activities and at least trying hard to get better. However, he is pretty wrapped up internally with a lot of internal stimulation. 12/06/23: In some ways we are seeing some improvement because he is brighter in his affect. However, I still think he is very delusional and I think he believes a lot of what is going on around him is not real. He still having pretty strong hallucinations. The lithium level came back low. Clozapine level is still pending. I still do not think he is safe to be able to live independently at this time. (1) Schizoaffective disorder, bipolar type: Plan 12/02/23: 1. We will continue with her current level of observation and precautions. I advised the patient to try to take part in our therapeutic milieu, attend groups and activities, maintain good hygiene, and try not to isolate. This is going to be difficult for him. 2. We are still trying to track down the exact doses of his recent medications. I increased his clozapine up to 150 mg because it sounds like he is only missed a few days and I do not want to be too low of a dose. CBC with differential was done yesterday and was fine. We will monitor his CBCs every week. We are also going to switch all of his medications to just once a day after dinner to try to help with his adherence. It will be important to take the Latuda with food. I restarted Latuda at 40 mg at dinnertime. I also switched his lithium to 900 mg at dinnertime. We will check a lithium level in a few days. 3. We also talked about the possibility of starting electroconvulsive therapy (ECT). The combination of clozapine and ECT is probably the best treatment there is for schizophrenia. Also, both lithium and clozapine should decrease his chances of suicide significantly. 4. We will try to set up a family meeting before the patient leaves. He does seem to have some good services already set up. 5. We will need to try to get a better feel for how safe he is to live independently. 12/03/23: We are going to continue with her current level of observation and precautions. I am going to leave the doses of medication as they are for a few days and then check a clozapine level and lithium level on December 06. Hopefully, we will continue to see more improvement. I encouraged the patient to continue to go to groups and activities is much as he can. He is also working on his hygiene still. Will try to set up a family meeting in the next few days. He will likely have a 304 conversion to inpatient early this we ek. 12/04/23: We are going to continue with his current level of observation and precautions. We will leave the doses of his medications as they are and he is due for a clozapine level and lithium level on December 06. I encouraged him to keep doing what he is doing to try to get better and show that he is working hard. In the near future we will set up a family meeting to work on discharge planning and safety planning. 12/05/23: We will continue with her current level of observation and precautions. We will continue with his current doses of medications but he has a clozapine l evel and lithium level tomorrow morning. I encouraged him to keep going to groups and activities. We are going to look at other options because I do not think he will be able to live independently when he gets out of the hospital. We should get his family involved in that as well. 12/06/23: We will continue with our current level of observation and precautions. I increased his lithium to 600 mg in the morning and 1200 mg at night. Given his lithium level of 0.5, that should at least bring up his level closer to 0.8. My goal is 0.9, but I do not want to hurt him by giving him too high of a dose. I also increased his clozapine up to 250 mg nightly. I encouraged him to keep going to groups and activities. We are going to try to get his family involved and discussed the case with the county to see if they may be able to help get him into some type of correction. Today I spent about 41 minutes on the case. This included meeting with the patient, reviewing the chart, nursing report, multidisciplinary staff meeting, orders, and documentation. Suicide Risk Level Suicide Risk Level: Moderate (q15 min suicide checks) Suicide Risk Level Comments: This young man's delusions and hallucinations are significantly distressing to him. I think he is at pretty moderate risk of suicide at this time. Risk Factors Assessment Do You Have Access To A Gun?: No Protective Factors Assessment Employed: No Interval History Identifying Information NASEEM MCGEE is a 28-year-old M who currently lives alone in an apartment in [place]. He has a history of schizoaffective disorder. He was admitted on 12/01/23 16:41 on a 304 outpatient commitment due to recent exacerbation of his psychotic symptoms. He also recently stopped taking them a few days ago. Chief Complaint "I do not believe that you are real." Review of Systems Sleep Information Total Hours of Sleep: 7.5 Meal Information Percent Meal Consumed - Breakfast: 100 Percent Meal Consumed - Lunch: 100 Percent Meal Consumed - Dinner: 100 Subjective Subjective Today I met with the patient, received nursing report, and reviewed his chart. We also had a multidisciplinary treatment team meeting to discuss his care. Naseem is in our hospital due to worsening psychotic symptoms, especially after he stopped taking his medications a few days before admission. Staff report that he is attending groups and is more engaged with others. Staff have also seen him be more spontaneously interactive with other people. They often wonder if he might be a little bit hypomanic. He referred to the therapist by her name for the first time. He was often seen giggling with staff in groups, but he was appropriate otherwise. Insurance suggested that we consider state hospitalization. When I met with the patient today, he says that he is eating okay and sleeping pretty well. When I explained to him how impressed people were with how his interacting with others, he said that he thought it was a good idea to do that. He says that he is feeling a lot better and looking a lot happier because he is no longer getting tortured by the hallucinations. He described his suicidal thoughts today at 2-3 out of 10. He denies homicidal thoughts. He feels well physically. He said he had a good conversation with his mother on the phone yesterday. When I asked him his mood, he replied "cognizant." He said that he still does not believe that I am a real. Physical Exam Psychiatric Patient was alert and cooperative. He was clean and well-groomed. Eye contact was fair to good. Speech was normal. Mood was described as "cognizant." Affect was brighter and he kept giggling several times during our conversation. Thought process seems goal-directed, but delusional. He described visual hallucinations but denied auditory hallucinations. Patient described suicidal ideation as I listed above. He denied any homicidal thoughts. Memory and concentration were good. No abnormal movements were seen other than the giggling. Gait was normal. Insight and judgment are impaired. Vital Signs (Past 24 Hours) Last Vital Signs Temp 36.4 C L 12/06/23 06:36 Pulse 80 12/06/23 06:37 Resp 16 12/06/23 06:36 BP 108/69 12/06/23 06:37 Pulse Ox 100 12/01/23 16:47 O2 Del Method Room Air 12/01/23 16:47 Results & Data ([facility]) Laboratory Results Laboratory Results - last 24 hr 12/06/23 09:19 Clozapine Pending Norclozapine Pending [place] 0.5 L Current Inpatient Medications Current Inpatient Medications: Current Inpatient Medications Acetaminophen (Acetaminophen 325 Mg Tab) 650 mg PO Q4H PRN PRN Reason: Headache or Minor Fever Stop: 12/31/23 15:47 Al Hydrox/Mg Hydrox/Simethicone (Aluminum/Magnesium Susp 30 Ml Udc) 30 ml PO Q4H PRN PRN Reason: GI Upset Stop: 12/31/23 15:47 Benztropine Mesylate (Benztropine Mesylate 1 Mg Tab) 1 mg PO Q6H PRN PRN Reason: Muscle Spasm Stop: 12/31/23 15:50 Bismuth Subsalicylate (Bismuth Subsalicylate Liqd 236 Ml) 15 ml PO PRN PRN PRN Reason: Loose Stool Stop: 12/31/23 15:47 Clozapine (Clozapine 25 Mg Tab) 250 mg PO DAILY@1800 VIVIAN; Protocol Stop: 01/05/24 17:59 Haloperidol (Haloperidol 5 Mg Tab) 5 mg PO Q4H PRN PRN Reason: hallucinations Stop: 12/31/23 15:50 Last Admin: 12/01/23 17:57 Dose: 5 mg [place] Carbonate ([place] Carbonate 300 Mg Tab) 1,200 mg PO DAILY@1800 VIVIAN Stop: 01/01/24 17:59 Last Admin: 12/05/23 17:42 Dose: 1,200 mg [place] Carbonate ([place] Carbonate 300 Mg Tab) 600 mg PO QAM VIVIAN Stop: 01/06/24 08:59 Lorazepam (Lorazepam 1 Mg Tab) 1 mg PO Q4H PRN PRN Reason: Anxiety/Insomnia Stop: 12/31/23 15:50 Lurasidone HCl (Lurasidone Hcl 20 Mg Tab) 60 mg PO DAILY@1800 VIVIAN Stop: 01/01/24 17:59 Last Admin: 12/05/23 17:41 Dose: 60 mg Magnesium Hydroxide (Magnesium Hydroxide Susp 30 Ml Udc) 30 ml PO DAILY PRN PRN Reason: Constipation Stop: 12/31/23 15:47 Sodium Chloride (Sodium Chloride 0.65% Na Soln 45 Ml ([place])) 1 - 2 sprays NA PRN PRN PRN Reason: Nasal Dryness/Congestion Stop: 12/31/23 15:47 Mental Health & Subst Abuse Tx Financial Manager Name of Financial Manager: Noelle ([facility]) Post Discharge Appointments Primary Care Physician Name Of Family Doctor/PCP: Brooke Dunn
[2023-12-06] MEDS: cloZAPine 25 MG TAB PO SCH (18:18)
[2023-12-07] MEDS: LITHIUM CARBONATE 300 MG TAB PO SCH (08:48)
--- NOTE | 2023-12-07 15:50 | Psychiatric Progress Note ---
Date of Service December 07, 2023 Impression / Recommendations Impression This gentleman has had a rough time with his thought disorder. He has been in hospitals almost continuously for a year now. It seems that when he was placed into an apartment by himself, he had difficulty functioning and possibly with his adherence to his medication. He cannot really tell me how many days he missed taking his medications. There does not seem to be a genetic predisposition towards schizophrenia. Mother and grandmother have had problems with depression which could make him more likely to have a bipolar illness. 12/03/23: Patient has had some minor relief since we restarted his medication. We are also seeing him eat better and drink better. He is also coming out of his room a little bit more into participating groups which is a good sign. 12/04/23: Patient is having slow, steady improvement. He is tolerating his meds well. He is also trying to do what he can going to groups and activities. He is now on a 304 inpatient commitment. 12/05/23: Patient is still not doing very well and is still delusional. I feel uncomfortable letting him live by himself at this point as well. I do not know other options currently. We will discuss this in her treatment team meeting tomorrow. He is attending groups and activities and at least trying hard to get better. However, he is pretty wrapped up internally with a lot of internal stimulation. 12/06/23: In some ways we are seeing some improvement because he is brighter in his affect. However, I still think he is very delusional and I think he believes a lot of what is going on around him is not real. He still having pretty strong hallucinations. The lithium level came back low. Clozapine level is still pending. I still do not think he is safe to be able to live independently at this time. 12/07/23: We continue to see some slow improvement. I suspect the clozapine is starting to help as well as the lithium. It is nice to know that he does have a place to stay coming up in the future, but we do not know exactly when. (1) Schizoaffective disorder, bipolar type: Plan 12/02/23: 1. We will continue with her current level of observation and precautions. I advised the patient to try to take part in our therapeutic milieu, attend groups and activities, maintain good hygiene, and try not to isolate. This is going to be difficult for him. 2. We are still trying to track down the exact doses of his recent medications. I increased his clozapine up to 150 mg because it sounds like he is only missed a few days and I do not want to be too low of a dose. CBC with differential was done yesterday and was fine. We will monitor his CBCs every week. We are also going to switch all of his medications to just once a day after dinner to try to help with his adherence. It will be important to take the Latuda with food. I restarted Latuda at 40 mg at dinnertime. I also switched his lithium to 900 mg at dinnertime. We will check a lithium level in a few days. 3. We also talked about the possibility of starting electroconvulsive therapy (ECT). The combination of clozapine and ECT is probably the best treatment there is for schizophrenia. Also, both lithium and clozapine should decrease his chances of suicide significantly. 4. We will try to set up a family meeting before the patient leaves. He does seem to have some good services already set up. 5. We will need to try to get a better feel for how safe he is to live independently. 12/03/23: We are going to continue with her current level of observation and precautions. I am going to leave the doses of medication as they are for a few days and then check a clozapine level and lithium level on December 06. Hopefully, we will continue to see more improvement. I encouraged the pa brandon to continue to go to groups and activities is much as he can. He is also working on his hygiene still. Will try to set up a family meeting in the next few days. He will likely have a 304 conversion to inpatient early this week. 12/04/23: We are going to continue with his current level of observation and precautions. We will leave the doses of his medications as they are and he is due for a clozapine level and lithium level on December 06. I encouraged him to keep doing what he is doing to try to get better and show that he is working hard. In the near future we will set up a family meeting to work on discharge planning and safety planning. 12/05/23: We will continue with her current level of observation and precautions. We will continue with his current doses of medications but he has a clozapine level and lithium level tomorrow morning. I encouraged him to keep going to groups and activities. We are going to look at other options because I do not think he will be able to live independently when he gets out of the hospital. We should get his family involved in that as well. 12/06/23: We will continue with our current level of observation and precautions. I increased his lithium to 600 mg in the morning and 1200 mg at night. Given his lithium level of 0.5, that should at least bring up his level closer to 0.8. My goal is 0.9, but I do not want to hurt him by giving him too high of a dose. I also increased his clozapine up to 250 mg nightly. I encouraged him to keep going to groups and activities. We are going to try to get his family involved and discussed the case with the county to see if they may be able to help get him into some type of residential. 12/07/23: We are going to continue with our current level of observation and precautions. Today, I increased his clozapine 1 more step to 275 mg nightly. I encouraged him to keep going to groups and activities. Will continue to watch for more signs of improvement. Today I spent about 37 minutes on the case. This included meeting with the patient, reviewing the chart, nursing report, multidisciplinary staff meeting, orders, and documentation. Suicide Risk Level Suicide Risk Level: Moderate (q15 min suicide checks) Suicide Risk Level Comments: This young man's delusions and hallucinations are significantly distressing to him. I think he is at pretty moderate risk of suicide at this time. Risk Factors Assessment Do You Have Access To A Gun?: No Protective Factors Assessment Employed: No Interval History Identifying Information NASEEM MCGEE is a 28-year-old M who currently lives alone in an apartment in [place]. He has a history of schizoaffective disorder. He was admitted on 12/01/23 16:41 on a 304 outpatient commitment due to recent exacerbation of his psychotic symptoms. He also recently stopped taking them a few days ago. Chief Complaint "I do not believe that you are real." Review of Systems Sleep Information Total Hours of Sleep: 7.75 Meal Information Percent Meal Consumed - Breakfast: 50 Percent Meal Consumed - Lunch: 100 Percent Meal Consumed - Dinner: 100 Subjective Subjective Today I met with the patient, received nursing report, and reviewed his chart. We also had a multidisciplinary staff meeting to discuss his care. Naseem is in our hospital due to worsening psychosis, especially after he stopped taking his medications "a few days" before admission. Staff report that they were able to find out that he is on a waiting list for a personal senior living. They did also noticed that he was a little more isolated in the evening last night. He was a little bit hyperverbal during the day yesterday. He did not go to the evening groups though. He was able to sleep but he said. When I met with him today, he told me for the first time that he is no longer hallucinating. He says his delusions have also down. He is not feeling sick. He is in no distress. He was able to sleep. He denies any medical issues. He is tolerating the new doses of medications. He denies suicidal ideation, self-harm urges, and homicidal thoughts. He is getting along well with his peers. He said he has been having decent phone calls with his mother and father. Physical Exam Psychiatric Patient was alert and cooperative. He was clean and well-groomed. Eye contact was fair to good. Speech was normal. Mood was still described as "cognizant." Affect was full but there was no giggling when I met with him this time. Thought process seems goal-directed, but less delusional today. For the first time he is denying any hallucinations at all today. Patient also denied any suicidal or homicidal thoughts. Memory and concentration were good. No abnormal movements were seen. Gait was normal. Insight and judgment are impaired. Vital Signs (Past 24 Hours) Last Vital Signs Temp 36.5 C 12/07/23 06:48 Pulse 86 12/07/23 06:49 Resp 16 12/07/23 06:48 BP 113/70 12/07/23 06:49 Pulse Ox 100 12/01/23 16:47 O2 Del Method Room Air 12/01/23 16:47 Results & Data ([facility]) Current Inpatient Medications Current Inpatient Medications: Current Inpatient Medications Acetaminophen (Acetaminophen 325 Mg Tab) 650 mg PO Q4H PRN PRN Reason: Headache or Minor Fever Stop: 12/31/23 15:47 Al Hydrox/Mg Hydrox/Simethicone (Aluminum/Magnesium Susp 30 Ml Udc) 30 ml PO Q4H PRN PRN Reason: GI Upset Stop: 12/31/23 15:47 Benztropine Mesylate (Benztropine Mesylate 1 Mg Tab) 1 mg PO Q6H PRN PRN Reason: Muscle Spasm Stop: 12/31/23 15:50 Bismuth Subsalicylate (Bismuth Subsalicylate Liqd 236 Ml) 15 ml PO PRN PRN PRN Reason: Loose Stool Stop: 12/31/23 15:47 Clozapine (Clozapine 25 Mg Tab) 250 mg PO DAILY@1800 VIVIAN; Protocol Stop: 01/05/24 17:59 Last Admin: 12/06/23 18:18 Dose: 250 mg Haloperidol (Haloperidol 5 Mg Tab) 5 mg PO Q4H PRN PRN Reason: hallucinations Stop: 12/31/23 15:50 Last Admin: 12/01/23 17:57 Dose: 5 mg [place] Carbonate ([place] Carbonate 300 Mg Tab) 1,200 mg PO DAILY@1800 VIVIAN Stop: 01/01/24 17:59 Last Admin: 12/06/23 18:17 Dose: 1,200 mg [place] Carbonate ([place] Carbonate 300 Mg Tab) 600 mg PO QAM VIVIAN Stop: 01/06/24 08:59 Last Admin: 12/07/23 08:48 Dose: 600 mg Lorazepam (Lorazepam 1 Mg Tab) 1 mg PO Q4H PRN PRN Reason: Anxiety/Insomnia Stop: 12/31/23 15:50 Lurasidone HCl (Lurasidone Hcl 20 Mg Tab) 60 mg PO DAILY@1800 VIVIAN Stop: 01/01/24 17:59 Last Admin: 12/06/23 18:18 Dose: 60 mg Magn[place] Hydroxide (Magnesium Hydroxide Susp 30 Ml Udc) 30 ml PO DAILY PRN PRN Reason: Constipation Stop: 12/31/23 15:47 Sodium Chloride (Sodium Chloride 0.65% Na Soln 45 Ml ([place])) 1 - 2 sprays NA PRN PRN PRN Reason: Nasal Dryness/Congestion Stop: 12/31/23 15:47 Mental Health & Subst Abuse Tx Manager Strategic Sourcing Name of Manager Strategic Sourcing: Noelle ([facility] ) Post Discharge Appointments Primary Care Physician Name Of Family Doctor/PCP: Brooke Dunn
[2023-12-07] MEDS ORDERED: cloZAPine 25 MG TAB PO SCH (18:00)
[2023-12-07] MEDS: cloZAPine 100 MG TAB PO SCH (18:32)
[2023-12-07] MEDS: cloZAPine 25 MG TAB PO SCH (18:33)
[2023-12-08 09:41] LABS: Basophils # (auto) 0.07 K/uL (0.00-0.20); Eosinophils # (auto) 0.11 K/uL (0.00-0.50); Eosinophils % (auto) 1.5 %; Hematocrit (blood only) 50.1 % (42.0-52.0); Hemoglobin 15.8 g/dl (14.0-18.0); Immature Granulocytes # (auto) 0.05 K/uL (0.01-0.20); Immature Granulocytes % (auto) 0.7 %; Lymphocytes # (auto) 2.05 K/uL (1.20-3.40); Lymphocytes % (auto) 28.5 %; Mean Corpuscular Hemoglobin 26.6 pg (25.0-34.0); Mean Corpuscular Hgb Conc 31.5 g/dL (32.0-36.0); Mean Corpuscular Volume 84.2 fL (80.0-100.0); Mean Platelet Volume 10.1 fL (9.4-12.4); Monocytes # (auto) 0.68 K/uL (0.11-0.59); Monocytes % (auto) 9.5 %; Neutrophils # (auto) 4.23 K/uL (1.40-6.50); Neutrophils % (auto) 58.8 %; Platelet Count 323 K/uL (130-400); RDW Coefficient of Variation 14.1 % (11.5-14.5); RDW Standard Deviation 42.7 fL (36.4-46.3); Red Blood Count 5.95 M/uL (4.70-6.10); White Blood Count 7.19 K/ul (4.8-10.8)
[2023-12-08 14:57] LABS: Clozapine 111 mcg/L; Norclozapine 80 mcg/L (25-400)
--- NOTE | 2023-12-08 15:41 | Psychiatric Progress Note ---
Date of Service December 08, 2023 Impression / Recommendations Impression This gentleman has had a rough time with his thought disorder. He has been in hospitals almost continuously for a year now. It seems that when he was placed into an apartment by himself, he had difficulty functioning and possibly with his adherence to his medication. He cannot really tell me how many days he missed taking his medications. There does not seem to be a genetic predisposition towards schizophrenia. Mother and grandmother have had problems with depression which could make him more likely to have a bipolar illness. 12/03/23: Patient has had some minor relief since we restarted his medication. We are also seeing him eat better and drink better. He is also coming out of his room a little bit more into participating groups which is a good sign. 12/04/23: Patient is having slow, steady improvement. He is tolerating his meds well. He is also trying to do what he can going to groups and activities. He is now on a 304 inpatient commitment. 12/05/23: Patient is still not doing very well and is still delusional. I feel uncomfortable letting him live by himself at this point as well. I do not know other options currently. We will discuss this in her treatment team meeting tomorrow. He is attending groups and activities and at least trying hard to get better. However, he is pretty wrapped up internally with a lot of internal stimulation. 12/06/23: In some ways we are seeing some improvement because he is brighter in his affect. However, I still think he is very delusional and I think he believes a lot of what is going on around him is not real. He still having pretty strong hallucinations. The lithium level came back low. Clozapine level is still pending. I still do not think he is safe to be able to live independently at this time. 12/07/23: We continue to see some slow improvement. I suspect the clozapine is starting to help as well as the lithium. It is nice to know that he does have a place to stay coming up in the future, but we do not know exactly when. 12/08/23: We continue to see slow improvement. We are seeing a more stable mood and less negative symptoms. We are also seeing a lot less positive symptoms. (1) Schizoaffective disorder, bipolar type: Plan 12/02/23: 1. We will continue with her current level of observation and precautions. I advised the patient to try to take part in our therapeutic milieu, attend groups and activities, maintain good hygiene, and try not to isolate. This is going to be difficult for him. 2. We are still trying to track down the exact doses of his recent medications. I increased his clozapine up to 150 mg because it sounds like he is only missed a few days and I do not want to be too low of a dose. CBC with differential was done yesterday and was fine. We will monitor his CBCs every week. We are also going to switch all of his medications to just once a day after dinner to try to help with his adherence. It will be important to take the Latuda with food. I restarted Latuda at 40 mg at dinnertime. I also switched his lithium to 900 mg at dinnertime. We will check a lithium level in a few days. 3. We also talked about the possibility of starting electroconvulsive therapy (ECT). The combination of clozapine and ECT is probably the best treatment there is for schizophrenia. Also, both lithium and clozapine should decrease his chances of suicide significantly. 4. We will try to set up a family meeting before the patient leaves. He does seem to have some good services already set up. 5. We will need to try to get a better feel for how safe he is to live independently. 12/03/23: We are going to continue with her current level of observation and precautions. I am going to leave the doses of medication as they are for a few days and then check a clozapine level and lithium level on December 06. Hopefully, we will continue to see more improvement. I encouraged the patient to continue to go to groups and activities is much as he can. He is also working on his hygiene still. Will try to set up a family meeting in the next few days. He will likely have a 304 conversion to inpatient early this week. 12/04/23: We are going to continue with his current level of observation and precautions. We will leave the doses of his medications as they are and he is due for a clozapine level and lithium level on December 06. I encouraged him to keep doing what he is doing to try to get better and show that he is working hard. In the near future we will set up a family meeting to work on discharge planning and safety planning. 12/05/23: We will continue with her current level of observation and precautions. We will continue with his current doses of medications but he has a clozapine level and lithium level tomorrow morning. I encouraged him to keep going to groups and activities. We are going to look at other options because I do not think he will be able to live independently when he gets out of the hospital. We should get his family involved in that as well. 12/06/23: We will continue with our current level of observation and precautions. I increased his lithium to 600 mg in the morning and 1200 mg at night. Given his lithium level of 0.5, that should at least bring up his level closer to 0.8. My goal is 0.9, but I do not want to hurt him by giving him too high of a dose. I also increased his clozapine up to 250 mg nightly. I encouraged him to keep going to groups and activities. We are going to try to get his family involved and discussed the case with the county to see if they may be able to help get him into some type of prison. 12/07/23: We are going to continue with our current level of observation and precautions. Today, I increased his clozapine 1 more step to 275 mg nightly. I encouraged him to keep going to groups and activities. Will continue to watch for more signs of improvement. 12/08/23: We will continue with our current level of observation and precautions. I increased his clozapine to 300 mg nightly. I encouraged him to keep going to groups and activities as much as he can tolerate. I am very pleased with his progress and hopeful that in the next several days we may be able to look towards a discharge. Today I spent about 22 minutes on the case. This included meeting with the patient, reviewing the chart, nursing report, multidisciplinary treatment team meeting, orders, and documentation. Suicide Risk Level Suicide Risk Level: Low (q15 min observation checks) Suicide Risk Level Comments: This young man's delusions and hallucinations are significantly distressing to him. I think he is at pretty moderate risk of suicide at this time. Risk Factors Assessment Do You Have Access To A Gun?: No Protective Factors Assessment Employed: No Interval History Identifying Information NASEEM MCGEE is a 28-year-old M who currently lives alone in an apartment in [place]. He has a history of schizoaffective disorder. He was admitted on 12/01/23 16:41 on a 304 outpatient commitment due to recent exacerbation of his psychotic symptoms. He also recently stopped taking them a few days ago. Chief Complaint "I do not believe that you are real." Review of Systems Sleep Information Total Hours of Sleep: 6.5 Meal Information Percent Meal Consumed - Breakfast: 100 Percent Meal Consumed - Lunch: 100 Percent Meal Consumed - Dinner: 100 Subjective Subjective Today I met with the patient, received nursing report, and reviewed his chart. We also had a multidisciplinary treatment team meeting to discuss his care. Naseem is in our hospital due to worsening psychosis especially after he stopped taking his medications. We heard that he had actually flushed some of them down the toilet. Staff tried to reach the [facility], but when they discovered he was 28 years old, they said that he will not be able to go there. Mother is involved with a special needs brother of the patient and is able to monitor Boby somewhat. When he left the last facility, they were trying to set up some in-home caregiving and he is supposed to get 10 to 12 hours/week of support, but that has not started yet. Staff have noticed that he is tolerating being around people much more. In fact, we see him intermingling with his peers pretty much like somebody without a thought disorder. Parents are leaving town to go to [place] for vacation. The [facility] is going to continue to follow the patient on an outpatient basis. Clozapine level has still not come back yet. He described his mood to the staff is 8 out of 10 and "thankful." When I met with him today, he said that he is tolerating the medications except for some sedation. He denied suicidal ideation. He has been eating and drinking well. Has been going to groups and activities and walking quite a bit. He is tolerating the lithium as well. He denied any hallucinations and is feeling "pretty good." Physical Exam Psychiatric Patient was alert and cooperative. He was clean and well-groomed. Eye contact was fair to good. Speech was normal. Mood was still described as "pretty good." Affect was slightly restricted. Thought process seems goal-directed and less delusional. There was no evidence of any hallucinations. He denied suicidal or homicidal thoughts. Memory and concentration were good. No abnormal movements were seen. Gait was normal. Insight and judgment are impaired. Vital Signs (Past 24 Hours) Last Vital Signs Temp 36.6 C 12/08/23 06:42 Pulse 80 12/08/23 06:42 Resp 16 12/08/23 06:42 BP 106/69 12/08/23 06:42 Pulse Ox 100 12/01/23 16:47 O2 Del Method Room Air 12/01/23 16:47 Results & Data ([facility]) Laboratory Results Laboratory Results - last 24 hr 12/06/23 12/08/23 09:19 09:01 WBC 7.19 RBC 5.95 Hgb 15.8 Hct 50.1 MCV 84.2 MCH 26.6 MCHC 31.5 L RDW Std Deviation 42.7 RDW Coeff of [place]én 14.1 Plt Count 323 MPV 10.1 Immature Gran % (Auto) 0.7 Neut % (Auto) 58.8 Lymph % (Auto) 28.5 [place] % (Auto) 9.5 Eos % (Auto) 1.5 Baso % (Auto) 1.0 Neut # (Auto) 4.23 Lymph # (Auto) 2.05 [place] # (Auto) 0.68 H Eos # (Auto) 0.11 Baso # (Auto) 0.07 Immature Gran # (Auto) 0.05 Clozapine 111 Norclozapine 80 Current Inpatient Medications Current Inpatient Medications: Current Inpatient Medications Acetaminophen (Acetaminophen 325 Mg Tab) 650 mg PO Q4H PRN PRN Reason: Headache or Minor Fever Stop: 12/31/23 15:47 Al Hydrox/Mg Hydrox/Simethicone (Aluminum/Magnesium Susp 30 Ml Udc) 30 ml PO Q4H PRN PRN Reason: GI Upset Stop: 12/31/23 15:47 Benztropine Mesylate (Benztropine Mesylate 1 Mg Tab) 1 mg PO Q6H PRN PRN Reason: Muscle Spasm Stop: 12/31/23 15:50 Bismuth Subsalicylate (Bismuth Subsalicylate Liqd 236 Ml) 15 ml PO PRN PRN PRN Reason: Loose Stool Stop: 12/31/23 15:47 Clozapine (Clozapine 100 Mg Tab) 300 mg PO DAILY@1800 [facility] Stop: 01/07/24 17:59 Haloperidol (Haloperidol 5 Mg Tab) 5 mg PO Q4H PRN PRN Reason: hallucinations Stop: 12/31/23 15:50 Last Admin: 12/01/23 17:57 Dose: 5 mg [place] Carbonate ([place] Carbonate 300 Mg Tab) 1,200 mg PO DAILY@1800 [facility] Stop: 01/01/24 17:59 Last Admin: 12/07/23 18:34 Dose: 1,200 mg [place] Carbonate ([place] Carbonate 300 Mg Tab) 600 mg PO QAM [facility] Stop: 01/06/24 08:59 Last Admin: 12/08/23 09:10 Dose: 600 mg Lorazepam (Lorazepam 1 Mg Tab) 1 mg PO Q4H PRN PRN Reason: Anxiety/Insomnia Stop: 12/31/23 15:50 Lurasidone HCl (Lurasidone Hcl 20 Mg Tab) 60 mg PO DAILY@1800 [facility] Stop: 01/01/24 17:59 Last Admin: 12/07/23 18:35 Dose: 60 mg Magnesium Hydroxide (Magnesium Hydroxide Susp 30 Ml Udc) 30 ml PO DAILY PRN PRN Reason: Constipation Stop: 12/31/23 15:47 Sodium Chloride (Sodium Chloride 0.65% Na Soln 45 Ml ([place])) 1 - 2 sprays NA PRN PRN PRN Reason: Nasal Dryness/Congestion Stop: 12/31/23 15:47 Mental Health & Subst Abuse Tx Section Supervisor Name of Section Supervisor: Noelle ([facility] CM) Post Discharge Appointments Primary Care Physician Name Of Family Doctor/PCP: Brooke Dunn
[2023-12-08] MEDS: cloZAPine 100 MG TAB PO SCH (18:19)
--- NOTE | 2023-12-09 15:17 | Psychiatric Progress Note ---
Date of Service December 09, 2023 Impression / Recommendations Impression As per Dr. Maddox: This gentleman has had a rough time with his thought disorder. He has been in hospitals almost continuously for a year now. It seems that when he was placed into an apartment by himself, he had difficulty functioning and possibly with his adherence to his medication. He cannot really tell me how many days he missed taking his medications. There does not seem to be a genetic predisposition towards schizophrenia. Mother and grandmother have had problems with depression which could make him more likely to have a bipolar illness. MNPR due to severity of psychosis, inability to tolerate peers when hallucinating, etc. Overall, I spent a total of 37 minutes with this case, including review of chart, direct evaluation of the patient, counseling the patient, coordination with nursing, risk assessment, and documentation. (1) Schizoaffective disorder, bipolar type: Plan 12/09/2023: reviewed lithium level, next level ordered for am 3/4, reviewed clozaril level. Consider dosing clozapine with pm meal if sedation continues. 12/08/23: We will continue with our current level of observation and precautions. I increased his clozapine to 300 mg nightly. I encouraged him to keep going to groups and activities as much as he can tolerate. I am very pleased with his progress and hopeful that in the next several days we may be able to look towards a discharge. 12/07/23: We are going to continue with our current level of observation and precautions. Today, I increased his clozapine 1 more step to 275 mg nightly. I encouraged him to keep going to groups and activities. Will continue to watch for more signs of improvement. 12/06/23: We will continue with our current level of observation and precautions. I increased his lithium to 600 mg in the morning and 1200 mg at night. Given his lithium level of 0.5, that should at least bring up his level closer to 0.8. My goal is 0.9, but I do not want to hurt him by giving him too high of a dose. I also increased his clozapine up to 250 mg nightly. I encouraged him to keep going to groups and activities. We are going to try to get his family involved and discussed the case with the county to see if they may be able to help get him into some type of fdc. 12/05/23: We will continue with her current level of observation and precautions. We will continue with his current doses of medications but he has a clozapine level and lithium level tomorrow morning. I encouraged him to keep going to groups and activities. We are going to look at other options because I do not think he will be able to live independently when he gets out of the hospital. We should get his family involved in that as well. 12/04/23: We are going to continue with his current level of observation and precautions. We will leave the doses of his medications as they are and he is due for a clozapine level and lithium level on December 06. I encouraged him to keep doing what he is doing to try to get better and show that he is working hard. In the near future we will set up a family meeting to work on discharge planning and safety planning. 12/03/23: We are going to continue with her current level of observation and precautions. I am going to leave the doses of medication as they are for a few days and then check a clozapine level and lithium level on December 06. Hopefully, we will continue to see more improvement. I encouraged the patient to continue to go to groups and activities is much as he can. He is also working on his hygiene still. Will try to set up a family meeting in the next few days. He will likely have a 304 conversion to inpatient early this week. 12/02/23: 1. We will continue with her current level of observation and precautions. I advised the patient to try to take part in our therapeutic milieu, attend groups and activities, maintain good hygiene, and try not to isolate. This is going to be difficult for him. 2. We are still trying to track down the exact doses of his recent medications. I increased his clozapine up to 150 mg because it sounds like he is only missed a few days and I do not want to be too low of a dose. CBC with differential was done yesterday and was fine. We will monitor his CBCs every week. We are also going to switch all of his medications to just once a day after dinner to try to help with his adherence. It will be important to take the Latuda with food. I restarted Latuda at 40 mg at dinnertime. I also switched his lithium to 900 mg at dinnertime. We will check a lithium level in a few days. 3. We also talked about the possibility of starting electroconvulsive therapy (ECT). The combination of clozapine and ECT is probably the best treatment there is for schizophrenia. Also, both lithium and clozapine should decrease his chances of suicide significantly. 4. We will try to set up a family meeting before the patient leaves. He does seem to have some good services already set up. 5. We will need to try to get a better feel for how safe he is to live independently. Suicide Risk Level Suicide Risk Level: Moderate (q15 min suicide checks) Risk Factors Assessment Do You Have Access To A Gun?: No Protective Factors Assessment Employed: No Interval History Identifying Information NASEEM MCGEE is a 28-year-old M who currently lives alone in an apartment in [place]. He has a history of schizoaffective disorder. He was admitted on 12/01/23 16:41 on a 201 (but has an outpatient commitment). Subsequently converted to inpatient commitment. Chief Complaint "I'm feeling some better but really just really tired". Review of Systems Sleep Information Total Hours of Sleep: 6.75 Meal Information Percent Meal Consumed - Breakfast: 100 Percent Meal Consumed - Lunch: 50 Percent Meal Consumed - Dinner: 100 Subjective Subjective Patient was seen & assessed and interval progress reviewed with nursing and social work. Today is in bed for some sedation which he attributes to clozaril increase. Parents are reportedly away until 11/20 and are exploring home health options for additional support of patient. [place] increased per Dr. Maddox 12/06/23. Physical Exam Psychiatric Orientation: alert and oriented x 3 Apperance: appropriately dressed and appropriately groomed Eye Contact: + fair eye contact Motor Behavior: no abnormal motor movements Speech: normal rate/rhythm/volume of speech Affect: + depressed affect Mood: + depressed mood Thought Process: goal directed thought process Thought Content: reality based without delusions Suicidal Thoughts: denies suicidal thoughts Homicidal Thoughts: denies homicidal thoughts Hallucinations: + auditory hallucinations (decreased); no visual hallucinations Cognition: attention grossly intact and language grossly intact Estimated Intelligence: consistent with education level Insight: + limited insight Judgment: + limited judgement Vital Signs (Past 24 Hours) Last Vital Signs Temp 36.7 C 12/09/23 06:22 Pulse 73 12/09/23 06:23 Resp 16 12/09/23 06:22 BP 93/58 L 12/09/23 06:23 Pulse Ox 99 12/09/23 06:22 O2 Del Method Room Air 12/09/23 06:22 [facility] Current Inpatient Medications Current Inpatient Medications: Current Inpatient Medications Acetaminophen (Acetaminophen 325 Mg Tab) 650 mg PO Q4H PRN PRN Reason: Headache or Minor Fever Stop: 12/31/23 15:47 Al Hydrox/Mg Hydrox/Simethicone (Aluminum/Magnesium Susp 30 Ml Udc) 30 ml PO Q4H PRN PRN Reason: GI Upset Stop: 12/31/23 15:47 Benztropine Mesylate (Benztropine Mesylate 1 Mg Tab) 1 mg PO Q6H PRN PRN Reason: Muscle Spasm Stop: 12/31/23 15:50 Bismuth Subsalicylate (Bismuth Subsalicylate Liqd 236 Ml) 15 ml PO PRN PRN PRN Reason: Loose Stool Stop: 12/31/23 15:47 Clozapine (Clozapine 100 Mg Tab) 300 mg PO DAILY@1800 [facility] Stop: 01/07/24 17:59 Last Admin: 12/08/23 18:19 Dose: 300 mg Haloperidol (Haloperidol 5 Mg Tab) 5 mg PO Q4H PRN PRN Reason: hallucinations Stop: 12/31/23 15:50 Last Admin: 12/01/23 17:57 Dose: 5 mg [place] Carbonate ([place] Carbonate 300 Mg Tab) 1,200 mg PO DAILY@1800 [facility] Stop: 01/01/24 17:59 Last Admin: 12/08/23 18:20 Dose: 1,200 mg [place] Carbonate ([place] Carbonate 300 Mg Tab) 600 mg PO QAM [facility] Stop: 01/06/24 08:59 Last Admin: 12/09/23 08:47 Dose: 600 mg Lorazepam (Lorazepam 1 Mg Tab) 1 mg PO Q4H PRN PRN Reason: Anxiety/Insomnia Stop: 12/31/23 15:50 Lurasidone HCl (Lurasidone Hcl 20 Mg Tab) 60 mg PO DAILY@1800 [facility] Stop: 01/01/24 17:59 Last Admin: 12/08/23 18:21 Dose: 60 mg Magnesium Hydroxide (Magnesium Hydroxide Susp 30 Ml Udc) 30 ml PO DAILY PRN PRN Reason: Constipation Stop: 12/31/23 15:47 Sodium Chloride (Sodium Chloride 0.65% Na Soln 45 Ml ([place])) 1 - 2 sprays NA PRN PRN PRN Reason: Nasal Dryness/Congestion Stop: 12/31/23 15:47 Mental Health & Subst Abuse Tx Faculty Neuropsychologist Name of Faculty Neuropsychologist: Noelle ([facility] CM) Post Discharge Appointments Primary Care Physician Name Of Family Doctor/PCP: Brooke Dunn
[2023-12-10 05:58] VITALS: O2SAT 98
--- NOTE | 2023-12-10 15:59 | Psychiatric Progress Note ---
Date of Service December 10, 2023 Impression / Recommendations Impression As per Dr. Maddox: This gentleman has had a rough time with his thought disorder. He has been in hospitals almost continuously for a year now. It seems that when he was placed into an apartment by himself, he had difficulty functioning and possibly with his adherence to his medication. He cannot really tell me how many days he missed taking his medications. There does not seem to be a genetic predisposition towards schizophrenia. Mother and grandmother have had problems with depression which could make him more likely to have a bipolar illness. MNPR due to severity of psychosis, inability to tolerate peers when hallucinating, etc. Overall, I spent a total of 35 minutes with this case, including review of chart, direct evaluation of the patient, counseling the patient, coordination with nursing, risk assessment, and documentation. (1) Schizoaffective disorder, bipolar type: Plan 12/10/2023: shift clozaril to earlier dosing time on a trial basis. Does not appear to need titration beyond 300 mg as ongoing steady improvement and any additional sedation would likely impair compliance as outpatient. 12/09/2023: reviewed lithium level, next level ordered for am 3/4, reviewed clozaril level. Consider dosing clozapine with pm meal if sedation continues. 12/08/23: We will continue with our current level of observation and precautions. I increased his clozapine to 300 mg nightly. I encouraged him to keep going to groups and activities as much as he can tolerate. I am very pleased with his progress and hopeful that in the next several days we may be able to look towards a discharge. 12/07/23: We are going to continue with our current level of observation and precautions. Today, I increased his clozapine 1 more step to 275 mg nightly. I encouraged him to keep going to groups and activities. Will continue to watch for more signs of improvement. 12/06/23: We will continue with our current level of observation and precautions. I increased his lithium to 600 mg in the morning and 1200 mg at night. Given his lithium level of 0.5, that should at least bring up his level closer to 0.8. My goal is 0.9, but I do not want to hurt him by giving him too high of a dose. I also increased his clozapine up to 250 mg nightly. I encouraged him to keep going to groups and activities. We are going to try to get his family involved and discussed the case with the county to see if they may be able to help get him into some type of nursing home. 12/05/23: We will continue with her current level of observation and precautions. We will continue with his current doses of medications but he has a clozapine level and lithium level tomorrow morning. I encouraged him to keep going to groups and activities. We are going to look at other options because I do not think he will be able to live independently when he gets out of the hospital. We should get his family involved in that as well. 12/04/23: We are going to continue with his current level of observation and precautions. We will leave the doses of his medications as they are and he is due for a clozapine level and lithium level on December 06. I encouraged him to keep doing what he is doing to try to get better and show that he is working hard. In the near future we will set up a family meeting to work on discharge planning and safety planning. 12/03/23: We are going to continue with her current level of observation and precautions. I am going to leave the doses of medication as they are for a few days and then check a clozapine level and lithium level on December 06. Hopefully, we will continue to see more improvement. I encouraged the patient to continue to go to groups and activities is much as he can. He is also working on his hygiene still. Will try to set up a family meeting in the next few days. He will likely have a 304 conversion to inpatient early this week. 12/02/23: 1. We will continue with her current level of observation and precautions. I advised the patient to try to take part in our therapeutic milieu, attend groups and activities, maintain good hygiene, and try not to isolate. This is going to be difficult for him. 2. We are still trying to track down the exact doses of his recent medications. I increased his clozapine up to 150 mg because it sounds like he is only missed a few days and I do not want to be too low of a dose. CBC with differential was done yesterday and was fine. We will monitor his CBCs every week. We are also going to switch all of his medications to just once a day after dinner to try to help with his adherence. It will be important to take the Latuda with food. I restarted Latuda at 40 mg at dinnertime. I also switched his lithium to 900 mg at dinnertime. We will check a lithium level in a few days. 3. We also talked about the possibility of starting electroconvulsive therapy (ECT). The combination of clozapine and ECT is probably the best treatment there is for schizophrenia. Also, both lithium and clozapine should decrease his chances of suicide significantly. 4. We will try to set up a family meeting before the patient leaves. He does seem to have some good services already set up. 5. We will need to try to get a better feel for how safe he is to live independently. Suicide Risk Level Suicide Risk Level: Moderate (q15 min suicide checks) Risk Factors Assessment Do You Have Access To A Gun?: No Protective Factors Assessment Employed: No Interval History Identifying Information NASEEM MCGEE is a 28-year-old M who currently lives alone in an apartment in [place]. He has a history of schizoaffective disorder. He was admitted on 12/01/23 16:41 on a 201 (but has an outpatient commitment). Subsequently converted to inpatient commitment. Chief Complaint "better, thanks" Review of Systems Sleep Information Total Hours of Sleep: 8 Meal Information Percent Meal Consumed - Breakfast: 100 Percent Meal Consumed - Lunch: 100 Percent Meal Consumed - Dinner: 100 Subjective Subjective Patient was seen & assessed and interval progress reviewed with nursing and social work. Patient reports his am sedation is improving, he's definitely more visible on the unit in pms and even attended self awareness group. Physical Exam Psychiatric Orientation: alert and oriented x 3 Apperance: appropriately dressed and appropriately groomed Eye Contact: + fair eye contact Motor Behavior: no abnormal motor movements Speech: normal rate/rhythm/volume of speech Affect: no depressed affect Mood: no depressed mood Thought Process: goal directed thought process Thought Content: reality based without delusions Suicidal Thoughts: denies suicidal thoughts Homicidal Thoughts: denies homicidal thoughts Hallucinations: + auditory hallucinations (decreased); no visual hallucinations Cognition: attention grossly intact and language grossly intact Estimated Intelligence: consistent with education level Insight: + limited insight Judgment: + limited judgement Vital Signs (Past 24 Hours) Last Vital Signs Temp 36.8 C 12/10/23 05:57 Pulse 78 12/10/23 05:57 Resp 16 12/10/23 05:57 BP 110/73 12/10/23 05:57 Pulse Ox 98 12/10/23 05:57 O2 Del Method Room Air 12/10/23 05:57 Results & Data ([facility]) Current Inpatient Medications Current Inpatient Medications: Current Inpatient Medications Acetaminophen (Acetaminophen 325 Mg Tab) 650 mg PO Q4H PRN PRN Reason: Headache or Minor Fever Stop: 12/31/23 15:47 Al Hydrox/Mg Hydrox/Simethicone (Aluminum/Magnesium Susp 30 Ml Udc) 30 ml PO Q4H PRN PRN Reason: GI Upset Stop: 12/31/23 15:47 Benztropine Mesylate (Benztropine Mesylate 1 Mg Tab) 1 mg PO Q6H PRN PRN Reason: Muscle Spasm Stop: 12/31/23 15:50 Bismuth Subsalicylate (Bismuth Subsalicylate Liqd 236 Ml) 15 ml PO PRN PRN PRN Reason: Loose Stool Stop: 12/31/23 15:47 Clozapine (Clozapine 100 Mg Tab) 300 mg PO DAILYBD [facility] Stop: 01/09/24 17:14 Haloperidol (Haloperidol 5 Mg Tab) 5 mg PO Q4H PRN PRN Reason: hallucinations Stop: 12/31/23 15:50 Last Admin: 12/01/23 17:57 Dose: 5 mg [place] Carbonate ([place]ates Carbonate 300 Mg Tab) 1,200 mg PO DAILY@1800 [facility] Stop: 01/01/24 17:59 Last Admin: 12/09/23 17:16 Dose: 1,200 mg [place] Carbonate ([place] Carbonate 300 Mg Tab) 600 mg PO QAM [facility] Stop: 01/06/24 08:59 Last Admin: 12/10/23 08:45 Dose: 600 mg Lorazepam (Lorazepam 1 Mg Tab) 1 mg PO Q4H PRN PRN Reason: Anxiety/Insomnia Stop: 12/31/23 15:50 Lurasidone HCl (Lurasidone Hcl 20 Mg Tab) 60 mg PO DAILY@1800 [facility] Stop: 01/01/24 17:59 Last Admin: 12/09/23 17:16 Dose: 60 mg Magnesium Hydroxide (Magnesium Hydroxide Susp 30 Ml Udc) 30 ml PO DAILY PRN PRN Reason: Constipation Stop: 12/31/23 15:47 Sodium Chloride (Sodium Chloride 0.65% Na Soln 45 Ml ([place])) 1 - 2 sprays NA PRN PRN PRN Reason: Nasal Dryness/Congestion Stop: 12/31/23 15:47 Mental Health & Subst Abuse Tx Rebeamer Name of Rebeamer: Noelle SAUCEDOU CM) Post Discharge Appointments Primary Care Physician Name Of Family Doctor/PCP: Brooke Dunn
[2023-12-10] MEDS: cloZAPine 100 MG TAB PO SCH (16:54)
--- NOTE | 2023-12-11 15:41 | Psychiatric Progress Note ---
Date of Service December 11, 2023 Impression / Recommendations Impression As per Dr. Maddox: This gentleman has had a rough time with his thought disorder. He has been in hospitals almost continuously for a year now. It seems that when he was placed into an apartment by himself, he had difficulty functioning and possibly with his adherence to his medication. He cannot really tell me how many days he missed taking his medications. There does not seem to be a genetic predisposition towards schizophrenia. Mother and grandmother have had problems with depression which could make him more likely to have a bipolar illness. MNPR due to severity of psychosis, inability to tolerate peers when hallucinating, etc. Overall, I spent a total of 35 minutes with this case, including review of chart, direct evaluation of the patient, counseling the patient, coordination with nursing, treatment team, and documentation. (1) Schizoaffective disorder, bipolar type: Plan 12/11/2023: lithium level 0.8, continue current meds and tx plan. 12/10/2023: shift clozaril to earlier dosing time on a trial basis. Does not appear to need titration beyond 300 mg as ongoing steady improvement and any additional sedation would likely impair compliance as outpatient. 12/09/2023: reviewed lithium level, next level ordered for am 3/4, reviewed clozaril level. Consider dosing clozapine with pm meal if sedation continues. 12/08/23: We will continue with our current level of observation and precautions. I increased his clozapine to 300 mg nightly. I encouraged him to keep going to groups and activities as much as he can tolerate. I am very pleased with his progress and hopeful that in the next several days we may be able to look towards a discharge. 12/07/23: We are going to continue with our current level of observation and precautions. Today, I increased his clozapine 1 more step to 275 mg nightly. I encouraged him to keep going to groups and activities. Will continue to watch for more signs of improvement. 12/06/23: We will continue with our current level of observation and precautions. I increased his lithium to 600 mg in the morning and 1200 mg at night. Given his lithium level of 0.5, that should at least bring up his level closer to 0.8. My goal is 0.9, but I do not want to hurt him by giving him too high of a dose. I also increased his clozapine up to 250 mg nightly. I encouraged him to keep going to groups and activities. We are going to try to get his family involved and discussed the case with the county to see if they may be able to help get him into some type of fdc. 12/05/23: We will continue with her current level of observation and precautions. We will continue with his current doses of medications but he has a clozapine level and lithium level tomorrow morning. I encouraged him to keep going to groups and activities. We are going to look at other options because I do not think he will be able to live independently when he gets out of the hospital. Andreas rivera should get his family involved in that as well. 12/04/23: We are going to continue with his current level of observation and precautions. We will leave the doses of his medications as they are and he is due for a clozapine level and lithium level on December 06. I encouraged him to keep doing what he is doing to try to get better and show that he is working hard. In the near future we will set up a family meeting to work on discharge planning and safety planning. 12/03/23: We are going to continue with her current level of observation and precautions. I am going to leave the doses of medication as they are for a few days and then check a clozapine level and lithium level on December 06. Hopefully, we will continue to see more improvement. I encouraged the ena ent to continue to go to groups and activities is much as he can. He is also working on his hygiene still. Will try to set up a family meeting in the next few days. He will likely have a 304 conversion to inpatient early this week. 12/02/23: 1. We will continue with her current level of observation and precautions. I advised the patient to try to take part in our therapeutic milieu, attend groups and activities, maintain good hygiene, and try not to isolate. This is going to be difficult for him. 2. We are still trying to track down the exact doses of his recent medications. I increased his clozapine up to 150 mg because it sounds like he is only missed a few days and I do not want to be too low of a dose. CBC with differential was done yesterday and was fine. We will monitor his CBCs every week. We are also going to switch all of his medications to just once a day after dinner to try to help with his adherence. It will be important to take the Latuda with food. I restarted Latuda at 40 mg at dinnertime. I also switched his lithium to 900 mg at dinnertime. We will check a lithium level in a few days. 3. We also talked about the possibility of starting electroconvulsive therapy (ECT). The combination of clozapine and ECT is probably the best treatment there is for schizophrenia. Also, both lithium and clozapine should decrease his chances of suicide significantly. 4. We will try to set up a family meeting before the patient leaves. He does seem to have some good services already set up. 5. We will need to try to get a better feel for how safe he is to live independently. Suicide Risk Level Suicide Risk Level: Moderate (q15 min suicide checks) Risk Factors Assessment Do You Have Access To A Gun?: No Protective Factors Assessment Employed: No Interval History Identifying Information NASEEM MCGEE is a 28-year-old M who currently lives alone in an apartment in [place]. He has a history of schizoaffective disorder. He was admitted on 12/01/23 16:41 on a 201 (but has an outpatient commitment). Subsequently converted to inpatient commitment. Chief Complaint "lithium is definitely helping." Review of Systems Sleep Information Total Hours of Sleep: 6.5 Meal Information Percent Meal Consumed - Breakfast: 100 Percent Meal Consumed - Lunch: 100 Percent Meal Consumed - Dinner: 100 Subjective Subjective Patient was seen & assessed and interval progress reviewed with treatment team. Patient is attending more groups, particularly in afternoon. Reports excessive sedation from clozaril is resolving. Denies being bothered by any residual lucero. Has expressed "really suicidal still" at times to SW when questioned about sa fety plan. Physical Exam Psychiatric Orientation: alert and oriented x 3 Apperance: appropriately dressed and appropriately groomed Eye Contact: + fair eye contact Motor Behavior: no abnormal motor movements Speech: normal rate/rhythm/volume of speech Affect: no depressed affect Mood: no depressed mood Thought Process: goal directed thought process Thought Content: reality based without delusions Suicidal Thoughts: denies suicidal thoughts Homicidal Thoughts: denies homicidal thoughts Hallucinations: + auditory hallucinations (decreased); no visual hallucinations Cognition: attention grossly intact and language grossly intact Estimated Intelligence: consistent with education level Insight: + limited insight Judgment: + limited judgement Vital Signs (Past 24 Hours) Last Vital Signs Temp 36.7 C 12/11/23 06:41 Pulse 80 12/11/23 06:42 Resp 16 12/11/23 06:41 BP 101/66 12/11/23 06:42 Pulse Ox 98 12/10/23 05:57 O2 Del Method Room Air 12/10/23 05:57 Results & Data ([facility]) Laboratory Results Laboratory Results - last 24 hr 12/11/23 07:06 Rudy 0.8 Current Inpatient Medications Current Inpatient Medications: Current Inpatient Medications Acetaminophen (Acetaminophen 325 Mg Tab) 650 mg PO Q4H PRN PRN Reason: Headache or Minor Fever Stop: 12/31/23 15:47 Al Hydrox/Mg Hydrox/Simethicone (Aluminum/Magnesium Susp 30 Ml Udc) 30 ml PO Q4H PRN PRN Reason: GI Upset Stop: 12/31/23 15:47 Benztropine Mesylate (Benztropine Mesylate 1 Mg Tab) 1 mg PO Q6H PRN PRN Reason: Muscle Spasm Stop: 12/31/23 15:50 Bismuth Subsalicylate (Bismuth Subsalicylate Liqd 236 Ml) 15 ml PO PRN PRN PRN Reason: Loose Stool Stop: 12/31/23 15:47 Clozapine (Clozapine 100 Mg Tab) 300 mg PO DAILYBD [facility] Stop: 01/09/24 17:14 Last Admin: 12/10/23 16:54 Dose: 300 mg Haloperidol (Haloperidol 5 Mg Tab) 5 mg PO Q4H PRN PRN Reason: hallucinations Stop: 12/31/23 15:50 Last Admin: 12/01/23 17:57 Dose: 5 mg Rudy Carbonate (Rudy Carbonate 300 Mg Tab) 1,200 mg PO DAILY@1800 [facility] Stop: 01/01/24 17:59 Last Admin: 12/10/23 17:58 Dose: 1,200 mg Rudy Carbonate (Rudy Carbonate 300 Mg Tab) 600 mg PO QAM [facility] Stop: 01/06/24 08:59 Last Admin: 12/11/23 10:26 Dose: 600 mg Lorazepam (Lorazepam 1 Mg Tab) 1 mg PO Q4H PRN PRN Reason: Anxiety/Insomnia Stop: 12/31/23 15:50 Lurasidone HCl (Lurasidone Hcl 20 Mg Tab) 60 mg PO DAILY@1800 [facility] Stop: 01/01/24 17:59 Last Admin: 12/10/23 17:58 Dose: 60 mg Magnesium Hydroxide (Magnesium Hydroxide Susp 30 Ml Udc) 30 ml PO DAILY PRN PRN Reason: Constipation Stop: 12/31/23 15:47 Sodium Chloride (Sodium Chloride 0.65% Na Soln 45 Ml ([place])) 1 - 2 sprays NA PRN PRN PRN Reason: Nasal Dryness/Congestion Stop: 12/31/23 15:47 Mental Health & Subst Abuse Tx Billing And Accounting Staff Assistant Name of Billing And Accounting Staff Assistant: Noelle (BSU CM) Post Discharge Appointments Primary Care Physician Name Of Family Doctor/PCP: Brooke Dunn
--- NOTE | 2023-12-12 15:20 | Psychiatric Progress Note ---
Date of Service December 12, 2023 Impression / Recommendations Impression As per Dr. Maddox: This gentleman has had a rough time with his thought disorder. He has been in hospitals almost continuously for a year now. It seems that when he was placed into an apartment by himself, he had difficulty functioning and possibly with his adherence to his medication. He cannot really tell me how many days he missed taking his medications. There does not seem to be a genetic predisposition towards schizophrenia. Mother and grandmother have had problems with depression which could make him more likely to have a bipolar illness. MNPR due to severity of psychosis, inability to tolerate peers when hallucinating, etc. 12/12/23: Improving Plan: continue current meds and treatment plan. (1) Schizoaffective disorder, bipolar type: Suicide Risk Level Suicide Risk Level: Moderate (q15 min suicide checks) Risk Factors Assessment Do You Have Access To A Gun?: No Protective Factors Assessment Employed: No Interval History Identifying Information NASEEM MCGEE is a 28-year-old M who currently lives alone in an apartment in [place]. He has a history of schizoaffective disorder. He was admitted on 12/01/23 16:41 on a 201 (but has an outpatient commitment). Subsequently converted to inpatient commitment. Chief Complaint ongoing sedation Review of Systems Sleep Information Total Hours of Sleep: 6 Meal Information Percent Meal Consumed - Breakfast: 100 Percent Meal Consumed - Lunch: 100 Percent Meal Consumed - Dinner: 100 Subjective Subjective Patient was seen & assessed and interval progress reviewed with nursing and social work. patient reports likes meds at current times. does go to bed early but he prefers that to being so tired in am. Will meet with rep from home health agency as will benefit from in home services following discharge. Physical Exam Psychiatric Orientation: alert and oriented x 3 Apperance: appropriately dressed and appropriately groomed Eye Contact: + fair eye contact Motor Behavior: no abnormal motor movements Speech: normal rate/rhythm/volume of speech Affect: no depressed affect Mood: no depressed mood Thought Process: goal directed thought process Thought Content: reality based without delusions Suicidal Thoughts: denies suicidal thoughts Homicidal Thoughts: denies homicidal thoughts Hallucinations: + auditory hallucinations (decreased); no visual hallucinations Cognition: attention grossly intact and language grossly intact Estimated Intelligence: consistent with education level Insight: + limited insight Judgment: + limited judgement Vital Signs (Past 24 Hours) Last Vital Signs Temp 37 C 12/12/23 06:36 Pulse 80 12/12/23 06:37 Resp 16 12/12/23 06:36 BP 117/70 12/12/23 06:37 Pulse Ox 98 12/10/23 05:57 O2 Del Method Room Air 12/10/23 05:57 Results & Data ([facility]) Current Inpatient Medications Current Inpatient Medications: Current Inpatient Medications Acetaminophen (Acetaminophen 325 Mg Tab) 650 mg PO Q4H PRN PRN Reason: Headache or Minor Fever Stop: 12/31/23 15:47 Al Hydrox/Mg Hydrox/Simethicone (Aluminum/Magnesium Susp 30 Ml Udc) 30 ml PO Q4H PRN PRN Reason: GI Upset Stop: 12/31/23 15:47 Benztropine Mesylate (Benztropine Mesylate 1 Mg Tab) 1 mg PO Q6H PRN PRN Reason: Muscle Spasm Stop: 12/31/23 15:50 Bismuth Subsalicylate (Bismuth Subsalicylate Liqd 236 Ml) 15 ml PO PRN PRN PRN Reason: Loose Stool Stop: 12/31/23 15:47 Clozapine (Clozapine 100 Mg Tab) 300 mg PO DAILYBD [facility] Stop: 01/09/24 17:14 Last Admin: 12/11/23 17:23 Dose: 300 mg Haloperidol (Haloperidol 5 Mg Tab) 5 mg PO Q4H PRN PRN Reason: hallucinations Stop: 12/31/23 15:50 Last Admin: 12/01/23 17:57 Dose: 5 mg [place] Carbonate ([place] Carbonate 300 Mg Tab) 1,200 mg PO DAILY@1800 [facility] Stop: 01/01/24 17:59 Last Admin: 12/11/23 18:16 Dose: 1,200 mg [place] Carbonate ([place] Carbonate 300 Mg Tab) 600 mg PO QAM [facility] Stop: 01/06/24 08:59 Last Admin: 12/12/23 09:11 Dose: 600 mg Lorazepam (Lorazepam 1 Mg Tab) 1 mg PO Q4H PRN PRN Reason: Anxiety/Insomnia Stop: 12/31/23 15:50 Lurasidone HCl (Lurasidone Hcl 20 Mg Tab) 60 mg PO DAILY@1800 [facility] Stop: 01/01/24 17:59 Last Admin: 03/04/24 18:16 Dose: 60 mg Magnesium Hydroxide (Magnesium Hydroxide Susp 30 Ml Udc) 30 ml PO DAILY PRN PRN Reason: Constipation Stop: 12/31/23 15:47 Sodium Chloride (Sodium Chloride 0.65% Na Soln 45 Ml ([place])) 1 - 2 sprays NA PRN PRN PRN Reason: Nasal Dryness/Congestion Stop: 12/31/23 15:47 Mental Health & Subst Abuse Tx Order Selector Name of Order Selector: Noelle (BSU CM) Post Discharge Appointments Primary Care Physician Name Of Family Doctor/PCP: Brooke Dunn
--- NOTE | 2023-12-13 15:30 | Psychiatric Progress Note ---
Date of Service December 13, 2023 Impression / Recommendations Impression As per Dr. Maddox: This gentleman has had a rough time with his thought disorder. He has been in hospitals almost continuously for a year now. It seems that when he was placed into an apartment by himself, he had difficulty functioning and possibly with his adherence to his medication. He cannot really tell me how many days he missed taking his medications. There does not seem to be a genetic predisposition towards schizophrenia. Mother and grandmother have had problems with depression which could make him more likely to have a bipolar illness. MNPR due to severity of psychosis, inability to tolerate peers when hallucinating, etc. 12/13/23: dizziness and ongoing sedation likely clozaril, tolerated higher doses before but I don't believe in combination with Latuda. Overall, I spent a total of 37 minutes with this case, including review of chart, direct evaluation of the patient, counseling the patient, ordering medication, coordination with nursing, and documentation. (1) Schizoaffective disorder, bipolar type: Plan 12/13/2023: decrease clozaril to 250 mg, may dose lower today if VS don't improve before dose. 12/11/2023: lithium level 0.8, continue current meds and tx plan. 12/10/2023: shift clozaril to earlier dosing time on a trial basis. Does not appear to need titration beyond 300 mg as ongoing steady improvement and any additional sedation would likely impair compliance as outpatient. 12/09/2023: reviewed lithium level, next level ordered for am 3/4, reviewed clozaril level. Consider dosing clozapine with pm meal if sedation continues. 12/08/23: We will continue with our current level of observation and precautions. I increased his clozapine to 300 mg nightly. I encouraged him to keep going to groups and activities as much as he can tolerate. I am very pleased with his progress and hopeful that in the next several days we may be able to look towards a discharge. 12/07/23: We are going to continue with our current level of observation and precautions. Today, I increased his clozapine 1 more step to 275 mg nightly. I encouraged him to keep going to groups and activities. Will continue to watch for more signs of improvement. 12/06/23: We will continue with our current level of observation and precautions. I increased his lithium to 600 mg in the morning and 1200 mg at night. Given his lithium level of 0.5, that should at least bring up his level closer to 0.8. My goal is 0.9, but I do not want to hurt him by giving him too high of a dose. I also increased his clozapine up to 250 mg nightly. I encouraged him to keep going to groups and activities. We are going to try to get his family involved and discussed the case with the county to see if they may be able to help get him into some type of snf. 12/05/23: We will continue with her current level of observation and precautions. We will continue with his current doses of medications but he has a clozapine level and lithium level tomorrow morning. I encouraged him to keep going to groups and activities. We are going to look at other options because I do not think he will be able to live independently when he gets out of the hospital. We should get his family involved in that as well. 12/04/23: We are going to continue with his current level of observation and precautions. We will leave the doses of his medications as they are and he is due for a clozapine level and lithium level on December 06. I encouraged him to keep doing what he is doing to try to get better and show that he is working hard. In the near future we will set up a family meeting to work on discharge planning and safety planning. 12/03/23: We are going to continue with her current level of observation and precautions. I am going to leave the doses of medication as they are for a few days and then check a clozapine level and lithium level on December 06. Hopefully, we will continue to see more improvement. I encouraged the patient to continue to go to groups and activities is much as he can. He is also working on his hygiene still. Will try to set up a family meeting in the next few days. He will likely have a 304 conversion to inpatient early this week. 12/02/23: 1. We will continue with her current level of observation and precautions. I advised the patient to try to take part in our therapeutic milieu, attend groups and activities, maintain good hygiene, and try not to isolate. This is going to be difficult for him. 2. We are still trying to track down the exact doses of his recent medications. I increased his clozapine up to 150 mg because it sounds like he is only missed a few days and I do not want to be too low of a dose. CBC with differential was done yesterday and was fine. We will monitor his CBCs every week. We are also going to switch all of his medications to just once a day after dinner to try to help with his adherence. It will be important to take the Latuda with food. I restarted Latuda at 40 mg at dinnertime. I also switched his lithium to 900 mg at dinnertime. We will check a lithium level in a few days. 3. We also talked about the possibility of starting electroconvulsive therapy (ECT). The combination of clozapine and ECT is probably the best treatment there is for schizophrenia. Also, both lithium and clozapine should decrease his chances of suicide significantly. 4. We will try to set up a family meeting before the patient leaves. He does seem to have some good services already set up. 5. We will need to try to get a better feel for how safe he is to live independently. Suicide Risk Level Suicide Risk Level: Moderate (q15 min suicide checks) Suicide Risk Level Comments: This young man's delusions and hallucinations are significantly distressing to him. I think he is at pretty moderate risk of suicide at this time. Risk Factors Assessment Do You Have Access To A Gun?: No Protective Factors Assessment Employed: No Interval History Identifying Information NASEEM MCGEE is a 28-year-old M who currently lives alone in an apartment in [place]. He has a history of schizoaffective disorder. He was admitted on 12/01/23 16:41 on a 201 (but has an outpatient commitment). Subsequently converted to inpatient commitment. Chief Complaint "I'm dizzy". Review of Systems Sleep Information Total Hours of Sleep: 10 Meal Information Percent Meal Consumed - Breakfast: 100 Percent Meal Consumed - Lunch: 100 Percent Meal Consumed - Dinner: 100 Nutrition Comment: Pt received double portions Subjective Subjective Patient was seen & assessed and interval progress reviewed with treatment team. He was cooperative with home health agency assessment yesterday. He reports feeling light headed sitting up and I directed staff to provide poweade and check vitals which indicated orthostasis. Physical Exam Psychiatric Orientation: alert Apperance: appropriately dressed and appropriately groomed Eye Contact: + poor eye contact Motor Behavior: no abnormal motor movements Speech: normal rate/rhythm/volume of speech Affect: + depressed affect Mood: + anxious mood Thought Process: + concrete thought process Thought Content: reality based without delusions Suicidal Thoughts: denies suicidal thoughts Homicidal Thoughts: denies homicidal thoughts Hallucinations: + auditory hallucinations (decreased); no visual hallucinations Cognition: attention grossly intact and language grossly intact Estimated Intelligence: consistent with education level Insight: + limited insight Judgment: + limited judgement Vital Signs (Past 24 Hours) Last Vital Signs Temp 36.8 C 12/13/23 06:37 Pulse 97 H 12/13/23 11:45 Resp 16 12/13/23 06:37 BP 83/50 L 12/13/23 11:45 Pulse Ox 98 12/10/23 05:57 O2 Del Method Room Air 12/10/23 05:57 Results & Data ([facility]) Current Inpatient Medications Current Inpatient Medications: Current Inpatient Medications Acetaminophen (Acetaminophen 325 Mg Tab) 650 mg PO Q4H PRN PRN Reason: Headache or Minor Fever Stop: 12/31/23 15:47 Al Hydrox/Mg Hydrox/Simethicone (Aluminum/Magnesium Susp 30 Ml Udc) 30 ml PO Q4H PRN PRN Reason: GI Upset Stop: 12/31/23 15:47 Benztropine Mesylate (Benztropine Mesylate 1 Mg Tab) 1 mg PO Q6H PRN PRN Reason: Muscle Spasm Stop: 12/31/23 15:50 Bismuth Subsalicylate (Bismuth Subsalicylate Liqd 236 Ml) 15 ml PO PRN PRN PRN Reason: Loose Stool Stop: 12/31/23 15:47 Clozapine (Clozapine 25 Mg Tab) 250 mg PO DAILYBD [facility]IVIAN Stop: 01/12/24 17:14 Haloperidol (Haloperidol 5 Mg Tab) 5 mg PO Q4H PRN PRN Reason: hallucinations Stop: 12/31/23 15:50 Last Admin: 12/01/23 17:57 Dose: 5 mg [place] Carbonate ([place] Carbonate 300 Mg Tab) 1,200 mg PO DAILY@1800 [facility] Stop: 01/01/24 17:59 Last Admin: 12/12/23 18:26 Dose: 1,200 mg [place] Carbonate ([place] Carbonate 300 Mg Tab) 600 mg PO QAM VIVIAN Stop: 01/06/24 08:59 Last Admin: 12/13/23 08:55 Dose: 600 mg Lorazepam (Lorazepam 1 Mg Tab) 1 mg PO Q4H PRN PRN Reason: Anxiety/Insomnia Stop: 12/31/23 15:50 Lurasidone HCl (Lurasidone Hcl 20 Mg Tab) 60 mg PO DAILY@1800 [facility] Stop: 01/01/24 17:59 Last Admin: 12/12/23 18:28 Dose: 60 mg Magnesium Hydroxide (Magnesium Hydroxide Susp 30 Ml Udc) 30 ml PO DAILY PRN PRN Reason: Constipation Stop: 12/31/23 15:47 Sodium Chloride (Sodium Chloride 0.65% Na Soln 45 Ml ([place])) 1 - 2 sprays NA PRN PRN PRN Reason: Nasal Dryness/Congestion Stop: 12/31/23 15:47 Mental Health & Subst Abuse Tx Deputy Fire Marshal Name of Deputy Fire Marshal: Noelle ([facility] CM) Post Discharge Appointments Primary Care Physician Name Of Family Doctor/PCP: Brooke Dunn
[2023-12-13] MEDS: cloZAPine 25 MG TAB PO SCH (17:18)
--- NOTE | 2023-12-14 15:17 | Psychiatric Progress Note ---
Date of Service December 14, 2023 Impression / Recommendations Impression As per Dr. Maddox: This gentleman has had a rough time with his thought disorder. He has been in hospitals almost continuously for a year now. It seems that when he was placed into an apartment by himself, he had difficulty functioning and possibly with his adherence to his medication. He cannot really tell me how many days he missed taking his medications. There does not seem to be a genetic predisposition towards schizophrenia. Mother and grandmother have had problems with depression which could make him more likely to have a bipolar illness. MNPR due to severity of psychosis, inability to tolerate peers when hallucinating, etc. 12/14/23: residual dizziness resolving (1) Schizoaffective disorder, bipolar type: Plan 12/14/2023: continue current meds and tx plan. 12/13/2023: decrease clozaril to 250 mg, may dose lower today if VS don't improve before dose. 12/11/2023: lithium level 0.8, continue current meds and tx plan. 12/10/2023: shift clozaril to earlier dosing time on a trial basis. Does not appear to need titration beyond 300 mg as ongoing steady improvement and any additional sedation would likely impair compliance as outpatient. 12/09/2023: reviewed lithium level, next level ordered for am 34, reviewed clozaril level. Consider dosing clozapine with pm meal if sedation continues. 12/08/23: We will continue with our current level of observation and precautions. I increased his clozapine to 300 mg nightly. I encouraged him to keep going to groups and activities as much as he can tolerate. I am very pleased with his progress and hopeful that in the next several days we may be able to look towards a discharge. 12/07/23: We are going to continue with our current level of observation and p recautions. Today, I increased his clozapine 1 more step to 275 mg nightly. I encouraged him to keep going to groups and activities. Will continue to watch for more signs of improvement. 12/06/23: We will continue with our current level of observation and precautions. I increased his lithium to 600 mg in the morning and 1200 mg at night. Given his lithium level of 0.5, that should at least bring up his level closer to 0.8. My goal is 0.9, but I do not want to hurt him by giving him too high of a dose. I also increased his clozapine up to 250 mg nightly. I encouraged him to keep going to groups and activities. We are going to try to get his family involved and discussed the case with the county to see if they may be able to help get him into some type of halfway. 12/05/23: We will continue with her current level of observation and precautions. We will continue with his current doses of medications but he has a clozapine level and lithium level tomorrow morning. I encouraged him to keep going to groups and activities. We are going to look at other options because I do not think he will be able to live independently when he gets out of the hospital. We should get his family involved in that as well. 12/04/23: We are going to continue with his current level of observation and precautions. We will leave the doses of his medications as they are and he is due for a clozapine level and lithium level on December 06. I encouraged him to keep doing what he is doing to try to get better and show that he is working hard. In the near future we will set up a family meeting to work on discharge planning and safety planning. 12/03/23: We are going to continue with her current level of observation and precautions. I am going to leave the doses of medication as they are for a few days and then check a clozapine level and lithium level on December 06. Hopefully, we will continue to see more improvement. I encouraged the patient to continue to go to groups and activities is much as he can. He is also working on his hygiene still. Will try to set up a family meeting in the next few days. He will likely have a 304 conversion to inpatient early this week. 12/02/23: 1. We will continue with her current level of observation and precautions. I advised the patient to try to take part in our therapeutic milieu, attend groups and activities, maintain good hygiene, and try not to isolate. This is going to be difficult for him. 2. We are still trying to track down the exact doses of his recent medications. I increased his clozapine up to 150 mg because it sounds like he is only missed a few days and I do not want to be too low of a dose. CBC with differential was done yesterday and was fine. We will monitor his CBCs every week. We are also going to switch all of his medications to just once a day after dinner to try to help with his adherence. It will be important to take the Latuda with food. I restarted Latuda at 40 mg at dinnertime. I also switched his lithium to 900 mg at dinnertime. We will check a lithium level in a few days. 3. We also talked about the possibility of starting electroconvulsive therapy (ECT). The combination of clozapine and ECT is probably the best treatment there is for schizophrenia. Also, both lithium and clozapine should decrease his chances of suicide significantly. 4. We will try to set up a family meeting before the patient leaves. He does seem to have some good services already set up. 5. We will need to try to get a better feel for how safe he is to live independently. Suicide Risk Level Suicide Risk Level: Moderate (q15 min suicide checks) Risk Factors Assessment Do You Have Access To A Gun?: No Protective Factors Assessment Employed: No Interval History Identifying Information NASEEM MCGEE is a 28-year-old M who currently lives alone in an apartment in [place]. He has a history of schizoaffective disorder. He was admitted on 12/01/23 16:41 on a 201 (but has an outpatient commitment). Subsequently converted to inpatient commitment. Chief Complaint "feeling better but still a little dizzy" Review of Systems Sleep Information Total Hours of Sleep: 9.30 Sleep Comments: Pt in bed before 1900. Meal Information Percent Meal Consumed - Breakfast: 100 Percent Meal Consumed - Lunch: 75 Percent Meal Consumed - Dinner: 100 Nutrition Comment: Pt received double portions Subjective Subjective Patient was seen & assessed and interval progress reviewed with nursing and social work. Up and eating earlier today, good fluid intake, showered without incident. Physical Exam Psychiatric Orientation: alert and oriented x 3 Apperance: appropriately dressed and appropriately groomed Eye Contact: + fair eye contact and + poor eye contact Motor Behavior: no abnormal motor movements Speech: normal rate/rhythm/volume of speech Affect: euthymic affect Mood: no depressed mood Thought Process: + concrete thought process Thought Content: reality based without delusions Suicidal Thoughts: denies suicidal thoughts Homicidal Thoughts: denies homicidal thoughts Hallucinations: + auditory hallucinations (decreased); no visual hallucinations Cognition: attention grossly intact and language grossly intact Estimated Intelligence: consistent with education level Insight: + limited insight Judgment: + limited judgement Vital Signs (Past 24 Hours) Last Vital Signs Temp 36.4 C 12/14/23 06:00 Pulse 78 12/14/23 06:13 Resp 16 12/14/23 06:00 BP 103/67 12/14/23 06:13 Pulse Ox 98 12/10/23 05:57 O2 Del Method Room Air 12/10/23 05:57 Results & Data ([facility]) Current Inpatient Medications Current Inpatient Medications: Current Inpatient Medications Acetaminophen (Acetaminophen 325 Mg Tab) 650 mg PO Q4H PRN PRN Reason: Headache or Minor Fever Stop: 12/31/23 15:47 Al Hydrox/Mg Hydrox/Simethicone (Aluminum/Magnesium Susp 30 Ml Udc) 30 ml PO Q4H PRN PRN Reason: GI Upset Stop: 12/31/23 15:47 Benztropine Mesylate (Benztropine Mesylate 1 Mg Tab) 1 mg PO Q6H PRN PRN Reason: Muscle Spasm Stop: 12/31/23 15:50 Bismuth Subsalicylate (Bismuth Subsalicylate Liqd 236 Ml) 15 ml PO PRN PRN PRN Reason: Loose Stool Stop: 12/31/23 15:47 Clozapine (Clozapine 25 Mg Tab) 250 mg PO DAILYBD [facility] Stop: 01/12/24 17:14 Last Admin: 12/13/23 17:48 Dose: 250 mg Haloperidol (Haloperidol 5 Mg Tab) 5 mg PO Q4H PRN PRN Reason: hallucinations Stop: 12/31/23 15:50 Last Admin: 12/01/23 17:57 Dose: 5 mg [place] Carbonate ([place] Carbonate 300 Mg Tab) 1,200 mg PO DAILY@1800 [facility] Stop: 01/01/24 17:59 Last Admin: 12/13/23 17:49 Dose: 1,200 mg [place] Carbonate ([place] Carbonate 300 Mg Tab) 600 mg PO QAM [facility]IVIAN Stop: 01/06/24 08:59 Last Admin: 12/14/23 08:44 Dose: 600 mg Lorazepam (Lorazepam 1 Mg Tab) 1 mg PO Q4H PRN PRN Reason: Anxiety/Insomnia Stop: 12/31/23 15:50 Lurasidone HCl (Lurasidone Hcl 20 Mg Tab) 60 mg PO DAILY@1800 [facility] Stop: 01/01/24 17:59 Last Admin: 12/13/23 17:49 Dose: 60 mg Magnesium Hydroxide (Magnesium Hydroxide Susp 30 Ml Udc) 30 ml PO DAILY PRN PRN Reason: Constipation Stop: 12/31/23 15:47 Sodium Chloride (Sodium Chloride 0.65% Na Soln 45 Ml ([place])) 1 - 2 sprays NA PRN PRN PRN Reason: Nasal Dryness/Congestion Stop: 12/31/23 15:47 Mental Health & Subst Abuse Tx Grain Combiner Name of Grain Combiner: Noelle ([facility] CM) Post Discharge Appointments Primary Care Physician Name Of Family Doctor/PCP: Brooke Dunn
[2023-12-15 07:57] LABS: Basophils # (auto) 0.07 K/uL (0.00-0.20); Basophils % (auto) 0.5 %; Eosinophils # (auto) 0.15 K/uL (0.00-0.50); Hematocrit (blood only) 49.1 % (42.0-52.0); Hemoglobin 15.5 g/dl (14.0-18.0); Immature Granulocytes # (auto) 0.13 K/uL (0.01-0.20); Immature Granulocytes % (auto) 0.9 %; Lymphocytes # (auto) 2.44 K/uL (1.20-3.40); Lymphocytes % (auto) 16.6 %; Mean Corpuscular Hemoglobin 26.3 pg (25.0-34.0); Mean Corpuscular Hgb Conc 31.6 g/dL (32.0-36.0); Mean Corpuscular Volume 83.2 fL (80.0-100.0); Mean Platelet Volume 9.8 fL (9.4-12.4); Monocytes # (auto) 1.27 K/uL (0.11-0.59); Monocytes % (auto) 8.7 %; Neutrophils % (auto) 72.3 %; Platelet Count 322 K/uL (130-400); RDW Coefficient of Variation 13.8 % (11.5-14.5); RDW Standard Deviation 42.1 fL (36.4-46.3); White Blood Count 14.66 K/ul (4.8-10.8)
--- NOTE | 2023-12-15 10:01 | Psychiatric Progress Note ---
Date of Service December 15, 2023 Impression / Recommendations Impression As per Dr. Maddox: This gentleman has had a rough time with his thought disorder. He has been in hospitals almost continuously for a year now. It seems that when he was placed into an apartment by himself, he had difficulty functioning and possibly with his adherence to his medication. He cannot really tell me how many days he missed taking his medications. There does not seem to be a genetic predisposition towards schizophrenia. Mother and grandmother have had problems with depression which could make him more likely to have a bipolar illness. MNPR due to severity of psychosis, inability to tolerate peers when hallucinating, etc. 12/15/23: improved (1) Schizoaffective disorder, bipolar type: Plan 12/15/2023: CBC reviewed, Clozaril REMS program updated, will be on q2 week labs upon discharge so 2 week supply can be dispensed with 1 refill for discharge script, awaiting notification of home health hours. Verify appointment with [facility] for coordination of care around labs/refills. 12/13/2023: decrease clozaril to 250 mg, may dose lower today if VS don't improve before dose. 12/11/2023: lithium level 0.8, continue current meds and tx plan. 12/10/2023: shift clozaril to earlier dosing time on a trial basis. Does not appear to need titration beyond 300 mg as ongoing steady improvement and any additional sedation would likely impair compliance as outpatient. 12/09/2023: reviewed lithium level, next level ordered for am 3/4, reviewed clozaril level. Consider dosing clozapine with pm meal if sedation continues. 12/08/23: We will continue with our current level of observation and precautions. I increased his clozapine to 300 mg nightly. I encouraged him to keep going to groups and activities as much as he can tolerate. I am very pleased with his progress and hopeful that in the next several days we may be able to look towards a discharge. 12/07/23: We are going to continue with our current level of observation and precautions. Today, I increased his clozapine 1 more step to 275 mg nightly. I encouraged him to keep going to groups and activities. Will continue to watch for more signs of improvement. 12/06/23: We will continue with our current level of observation and precautions. I increased his lithium to 600 mg in the morning and 1200 mg at night. Given his lithium level of 0.5, that should at least bring up his level closer to 0.8. My goal is 0.9, but I do not want to hurt him by giving him too high of a dose. I also increased his clozapine up to 250 mg nightly. I encouraged him to keep going to groups and activities. We are going to try to get his family involved and discussed the case with the county to see if they may be able to help get him into some type of [facility]. 12/05/23: We will continue with her current level of observation and precautions. We will continue with his current doses of medications but he has a clozapine level and lithium level tomorrow morning. I encouraged him to keep going to groups and activities. We are going to look at other options because I do not think he will be able to live independently when he gets out of the hospital. We should get his family involved in that as well. 12/04/23: We are going to continue with his current level of observation and precautions. We will leave the doses of his medications as they are and he is due for a clozapine level and lithium level on December 06. I encouraged him to keep doing what he is doing to try to get better and show that he is working hard. In the near future we will set up a family meeting to work on discharge planning and safety planning. 12/03/23: We are going to continue with her current level of observation and precautions. I am going to leave the doses of medication as they are for a few days and then check a clozapine level and lithium level on December 06. Hopefully, we will continue to see more improvement. I encouraged the pa brandon to continue to go to groups and activities is much as he can. He is also working on his hygiene still. Will try to set up a family meeting in the next few days. He will likely have a 304 conversion to inpatient early this week. 12/02/23: 1. We will continue with her current level of observation and precautions. I advised the patient to try to take part in our therapeutic milieu, attend groups and activities, maintain good hygiene, and try not to isolate. This is going to be difficult for him. 2. We are still trying to track down the exact doses of his recent medications. I increased his clozapine up to 150 mg because it sounds like he is only missed a few days and I do not want to be too low of a dose. CBC with differential was done yesterday and was fine. We will monitor his CBCs every week. We are also going to switch all of his medications to just once a day after dinner to try to help with his adherence. It will be important to take the Latuda with food. I restarted Latuda at 40 mg at dinnertime. I also switched his lithium to 900 mg at dinnertime. We will check a lithium level in a few days. 3. We also talked about the possibility of starting electroconvulsive therapy (ECT). The combination of clozapine and ECT is probably the best treatment there is for schizophrenia. Also, both lithium and clozapine should decrease his chances of suicide significantly. 4. We will try to set up a family meeting before the patient leaves. He does seem to have some good services already set up. 5. We will need to try to get a better feel for how safe he is to live independently. Suicide Risk Level Suicide Risk Level: Moderate (q15 min suicide checks) Risk Factors Assessment Do You Have Access To A Gun?: No Protective Factors Assessment Employed: No Interval History Identifying Information NASEEM MCGEE is a 28-year-old M who currently lives alone in an apartment in [place]. He has a history of schizoaffective disorder. He was admitted on 12/01/23 16:41 on a 201 (but has an outpatient commitment). Subsequently converted to inpatient commitment. Chief Complaint "I'm feeling some better, no dizziness." Review of Systems Sleep Information Total Hours of Sleep: 6.45 Sleep Comments: Pt in bed before 1900. Meal Information Percent Meal Consumed - Breakfast: 100 Percent Meal Consumed - Lunch: 75 Percent Meal Consumed - Dinner: 100 Nutrition Comment: Pt received double portions Subjective Subjective Patient was seen & assessed and interval progress reviewed with treatment team. no issues overnight. sedation and dizziness essentially resolved but still going to bed quite early. Physical Exam Psychiatric Orientation: alert and oriented x 3 Apperance: appropriately dressed and appropriately groomed Eye Contact: good eye contact Motor Behavior: no abnormal motor movements Speech: normal rate/rhythm/volume of speech Affect: euthymic affect (for patient, limited range) Mood: + depressed mood Thought Process: + concrete thought process Thought Content: reality based without delusions Suicidal Thoughts: denies suicidal thoughts Homicidal Thoughts: denies homicidal thoughts Hallucinations: + auditory hallucinations (intermittent, nonspecific); no visual hallucinations Cognition: attention grossly intact and language grossly intact Estimated Intelligence: consistent with education level Insight: + limited insight Judgment: + limited judgement Vital Signs (Past 24 Hours) Last Vital Signs Temp 36.6 C 12/15/23 06:00 Pulse 85 12/15/23 06:28 Resp 16 12/15/23 06:00 BP 107/68 12/15/23 06:28 Pulse Ox 98 12/10/23 05:57 O2 Del Method Room Air 12/10/23 05:57 Results & Data ([facility]) Laboratory Results Laboratory Results - last 24 hr 12/15/23 07:29 WBC 14.66 H RBC 5.90 Hgb 15.5 Hct 49.1 MCV 83.2 MCH 26.3 MCHC 31.6 L RDW Std Deviation 42.1 RDW Coeff of Belén 13.8 Plt Count 322 MPV 9.8 Immature Gran % (Auto) 0.9 Neut % (Auto) 72.3 Lymph % (Auto) 16.6 Webb % (Auto) 8.7 Eos % (Auto) 1.0 Baso % (Auto) 0.5 Neut # (Auto) 10.60 H Lymph # (Auto) 2.44 Webb # (Auto) 1.27 H Eos # (Auto) 0.15 Baso # (Auto) 0.07 Immature Gran # (Auto) 0.13 Current Inpatient Medications Current Inpatient Medications: Current Inpatient Medications Acetaminophen (Acetaminophen 325 Mg Tab) 650 mg PO Q4H PRN PRN Reason: Headache or Minor Fever Stop: 12/31/23 15:47 Al Hydrox/Mg Hydrox/Simethicone (Aluminum/Magnesium Susp 30 Ml Udc) 30 ml PO Q4H PRN PRN Reason: GI Upset Stop: 12/31/23 15:47 Benztropine Mesylate (Benztropine Mesylate 1 Mg Tab) 1 mg PO Q6H PRN PRN Reason: Muscle Spasm Stop: 12/31/23 15:50 Bismuth Subsalicylate (Bismuth Subsalicylate Liqd 236 Ml) 15 ml PO PRN PRN PRN Reason: Loose Stool Stop: 12/31/23 15:47 Clozapine (Clozapine 25 Mg Tab) 250 mg PO DAILYBD VIVIAN Stop: 01/12/24 17:14 Last Admin: 12/14/23 17:01 Dose: 250 mg Haloperidol (Haloperidol 5 Mg Tab) 5 mg PO Q4H PRN PRN Reason: hallucinations Stop: 12/31/23 15:50 Last Admin: 12/01/23 17:57 Dose: 5 mg [place] Carbonate ([place] Carbonate 300 Mg Tab) 1,200 mg PO DAILY@1800 VIVIAN Stop: 01/01/24 17:59 Last Admin: 12/14/23 17:50 Dose: 1,200 mg [place] Carbonate ([place] Carbonate 300 Mg Tab) 600 mg PO QAM VIVIAN Stop: 01/06/24 08:59 Last Admin: 12/15/23 08:32 Dose: 600 mg Lorazepam (Lorazepam 1 Mg Tab) 1 mg PO Q4H PRN PRN Reason: Anxiety/Insomnia Stop: 12/31/23 15:50 Lurasidone HCl (Lurasidone Hcl 20 Mg Tab) 60 mg PO DAILY@1800 VIVIAN Stop: 01/01/24 17:59 Last Admin: 12/14/23 17:50 Dose: 60 mg Magnesium Hydroxide (Magnesium Hydroxide Susp 30 Ml Udc) 30 ml PO DAILY PRN PRN Reason: Constipation Stop: 12/31/23 15:47 Sodium Chloride (Sodium Chloride 0.65% Na Soln 45 Ml ([place])) 1 - 2 sprays NA PRN PRN PRN Reason: Nasal Dryness/Congestion Stop: 12/31/23 15:47 Mental Health & Subst Abuse Tx Settlement Clerk Name of Settlement Clerk: Noelle ([facility] CM) Post Discharge Appointments Primary Care Physician Name Of Family Doctor/PCP: Brooke Dunn
--- NOTE | 2023-12-15 15:45 | Communication Note ---
Date of Service: December 15, 2023 Attempted to send rx's to pharmacy well ahead of discharge to ensure availability. Initially sent clozaril 14 day supply to pharmacy mother requested [facility]. That location does not participate in clozaril REMS so sent to [facility]. Nursing was able to confirm that location must also order so scripts resent with REMS ID #[id number]. resent Latuda as well as 2nd antipsychotic often does require prior auth. sent lithium #14 day supply as well this time given number of pills/safety with understanding that Mother will be assisting in securing and overseeing medications given toxicity of med in OD, even a 2 week supply given his higher dosing. Staff/Dr. Pedroza to review. Lab slip on chart as will require f/u CBC by 12/26.
--- NOTE | 2023-12-16 12:34 | Psychiatric Progress Note ---
Date of Service December 16, 2023 Impression / Recommendations Impression As per Dr. Maddox: This gentleman has had a rough time with his thought disorder. He has been in hospitals almost continuously for a year now. It seems that when he was placed into an apartment by himself, he had difficulty functioning and possibly with his adherence to his medication. He cannot really tell me how many days he missed taking his medications. There does not seem to be a genetic predisposition towards schizophrenia. Mother and grandmother have had problems with depression which could make him more likely to have a bipolar illness. MNPR due to severity of psychosis, inability to tolerate peers when hallucinating, etc. 12/15/23: improved 12/16/23: Patient continues to improve and we discussed the fact that he might be discharged on Monday if he continues to remain stable. (1) Schizoaffective disorder, bipolar type: Plan 12/16/2023: Patient's chart reviewed. HE continues to remain stable. He says his mood has been depressed but he is handling that by listening to music and walking around in the halls. He was pleasant and cooperative throughout the interview. 12/15/2023: CBC reviewed, Clozaril REMS program updated, will be on q2 week labs upon discharge so 2 week supply can be dispensed with 1 refill for discharge script, awaiting notification of home health hours. Verify appointment with [facility] for coordination of care around labs/refills. 12/13/2023: decrease clozaril to 250 mg, may dose lower today if VS don't improve before dose. 12/11/2023: lithium level 0.8, continue current meds and tx plan. 12/10/2023: shift clozaril to earlier dosing time on a trial basis. Does not appear to need titration beyond 300 mg as ongoing steady improvement and any additional sedation would likely impair compliance as outpatient. 12/09/2023: reviewed lithium level, next level ordered for am 34, reviewed clozaril level. Consider dosing clozapine with pm meal if sedation continues. 12/08/23: We will continue with our current level of observation and precautions. I increased his clozapine to 300 mg nightly. I encouraged him to keep going to groups and activities as much as he can tolerate. I am very pleased with his progress and hopeful that in the next several days we may be able to look towards a discharge. 2/29/24: We are going to continue with our current level of observation and precautions. Today, I increased his clozapine 1 more step to 275 mg nightly. I encouraged him to keep going to groups and activities. Will continue to watch for more signs of improvement. 12/06/23: We will continue with our current level of observation and precautions. I increased his lithium to 600 mg in the morning and 1200 mg at night. Given his lithium level of 0.5, that should at least bring up his level closer to 0.8. My goal is 0.9, but I do not want to hurt him by giving him too high of a dose. I also increased his clozapine up to 250 mg nightly. I encouraged him to keep going to groups and activities. We are going to try to get his family involved and discussed the case with the county to see if they may be able to help get him into some type of senior living. 12/05/23: We will continue with her current level of observation and precautions. We will continue with his current doses of medications but he has a clozapine level and lithium level tomorrow morning. I encouraged him to keep going to groups and activities. We are going to look at other options because I do not think he will be able to live independently when he gets out of the hospital. We should get his family involved in that as well. 12/04/23: We are going to continue with his current level of observation and precautions. We will leave the doses of his medications as they are and he is due for a clozapine level and lithium level on December 06. I encouraged him to keep doing what he is doing to try to get better and show that he is working hard. In the near future we will set up a family meeting to work on discharge planning and safety planning. 12/03/23: We are going to continue with her current level of observation and precautions. I am going to leave the doses of medication as they are for a few days and then check a clozapine level and lithium level on December 06. Hopefully, we will continue to see more improvement. I encouraged the patient to continue to go to groups and activities is much as he can. He is also working on his hygiene still. Will try to set up a family meeting in the next few days. He will likely have a 304 conversion to inpatient early this week. 12/02/23: 1. We will continue with her current level of observation and precautions. I advised the patient to try to take part in our therapeutic milieu, attend groups and activities, maintain good hygiene, and try not to isolate. This is going to be difficult for him. 2. We are still trying to track down the exact doses of his recent medications. I increased his clozapine up to 150 mg because it sounds like he is only missed a few days and I do not want to be too low of a dose. CBC with differential was done yesterday and was fine. We will monitor his CBCs every week. We are also going to switch all of his medications to just once a day after dinner to try to help with his adherence. It will be important to take the Latuda with food. I restarted Latuda at 40 mg at dinnertime. I also switched his lithium to 900 mg at dinnertime. We will check a lithium level in a few days. 3. We also talked about the possibility of starting electroconvulsive therapy (ECT). The combination of clozapine and ECT is probably the best treatment there is for schizophrenia. Also, both lithium and clozapine should decrease his chances of suicide significantly. 4. We will try to set up a family meeting before the patient leaves. He does seem to have some good services already set up. 5. We will need to try to get a better feel for how safe he is to live independently. Suicide Risk Level Suicide Risk Level: Moderate (q15 min suicide checks) Suicide Risk Level Comments: The patient now denies hallucinations and delusions. I think he is now at lower risk of suicide than previously in his inpatient stay. Risk Factors Assessment Do You Have Access To A Gun?: No Protective Factors Assessment Employed: No Interval History Identifying Information NASEEM MCGEE is a 28-year-old M who currently lives alone in an apartment in [place]. He has a history of schizoaffective disorder. He was admitted on 12/01/23 16:41 on a 201 (but has an outpatient commitment). Subsequently converted to inpatient commitment. Chief Complaint "I'm OK". Review of Systems Sleep Information Total Hours of Sleep: 10 Sleep Comments: Pt in bed before 1900. Meal Information Percent Meal Consumed - Breakfast: 100 Percent Meal Consumed - Lunch: 100 Percent Meal Consumed - Dinner: 50 Nutrition Comment: Pt received double portions Subjective Subjective Patient was seen & assessed and interval progress reviewed with treatment team and nursing and social work. Physical Exam Psychiatric Orientation: alert and oriented x 3 Apperance: appropriately dressed and appropriately groomed Eye Contact: good eye contact Motor Behavior: no abnormal motor movements Speech: normal rate/rhythm/volume of speech Affect: euthymic affect (for patient, limited range) Mood: + anxious mood Thought Process: goal directed thought process and + concrete thought process Thought Content: reality based without delusions Suicidal Thoughts: denies suicidal thoughts Homicidal Thoughts: denies homicidal thoughts Hallucinations: no auditory hallucinations (intermittent, nonspecific) and no visual hallucinations Cognition: attention grossly intact and language grossly intact Estimated Intelligence: consistent with education level Insight: + limited insight Judgment: + limited judgement Vital Signs (Past 24 Hours) Last Vital Signs Temp 36.8 C 12/16/23 06:36 Pulse 79 12/16/23 06:37 Resp 16 12/16/23 06:36 BP 109/69 12/16/23 06:37 Pulse Ox 98 12/10/23 05:57 O2 Del Method Room Air 12/10/23 05:57 Results & Data ([facility]) Current Inpatient Medications Current Inpatient Medications: Current Inpatient Medications Acetaminophen (Acetaminophen 325 Mg Tab) 650 mg PO Q4H PRN PRN Reason: Headache or Minor Fever Stop: 12/31/23 15:47 Al Hydrox/Mg Hydrox/Simethicone (Aluminum/Magnesium Susp 30 Ml Udc) 30 ml PO Q4H PRN PRN Reason: GI Upset Stop: 12/31/23 15:47 Benztropine Mesylate (Benztropine Mesylate 1 Mg Tab) 1 mg PO Q6H PRN PRN Reason: Muscle Spasm Stop: 12/31/23 15:50 Bismuth Subsalicylate (Bismuth Subsalicylate Liqd 236 Ml) 15 ml PO PRN PRN PRN Reason: Loose Stool Stop: 12/31/23 15:47 Clozapine (Clozapine 25 Mg Tab) 50 mg PO DAILYBD VIVIAN Stop: 01/15/24 17:14 Clozapine (Clozapine 100 Mg Tab) 200 mg PO DAILYBD VIVIAN Stop: 01/15/24 17:14 Haloperidol (Haloperidol 5 Mg Tab) 5 mg PO Q4H PRN PRN Reason: hallucinations Stop: 12/31/23 15:50 Last Admin: 12/01/23 17:57 Dose: 5 mg [place] Carbonate ([place] Carbonate 300 Mg Tab) 1,200 mg PO DAILY@1800 VIVIAN Stop: 01/01/24 17:59 Last Admin: 12/15/23 18:03 Dose: 1,200 mg [place] Carbonate ([place] Carbonate 300 Mg Tab) 600 mg PO QAM VIVIAN Stop: 01/06/24 08:59 Last Admin: 12/16/23 08:57 Dose: 600 mg Lorazepam (Lorazepam 1 Mg Tab) 1 mg PO Q4H PRN PRN Reason: Anxiety/Insomnia Stop: 12/31/23 15:50 Lurasidone HCl (Lurasidone Hcl 20 Mg Tab) 60 mg PO DAILY@1800 VIVIAN Stop: 01/01/24 17:59 Last Admin: 12/15/23 18:02 Dose: 60 mg Magnesium Hydroxide (Magnesium Hydroxide Susp 30 Ml Udc) 30 ml PO DAILY PRN PRN Reason: Constipation Stop: 12/31/23 15:47 Sodium Chloride (Sodium Chloride 0.65% Na Soln 45 Ml ([place])) 1 - 2 sprays NA PRN PRN PRN Reason: Nasal Dryness/Congestion Stop: 12/31/23 15:47 Mental Health & Subst Abuse Tx Psychiatrist Name of Psychiatrist: Kody Rogers Psychiatrist's Date Of Appointment With Psychiatric Provider: 12/21/2023 Time of Appointment with Psychiatrist: 9am Psychiatric Appointment Comment: [address] [place] [address] Therapist Name of Therapist: [facility] Therapist's Date of Therapist Appointment: 12/27/2023 Time of Therapist Appointment: 12:30-2pm Therapy Appointment Comment: [address], [place] [address] Operational Assistant Name of Operational Assistant: MAGDALENE VALERIOULisseth Drake Phone Number for Operational Assistant: [phone] Date of Appointment with Operational Assistant: 12/18/23 Time of Appointment with Operational Assistant: 2pm Case Management Appointment Comment: will meet you in the home Post Discharge Appointments Primary Care Physician Name Of Family Doctor/PCP: Kody Dunn Primary Care Date of Future Appointment with PCP: 12/27/2023 Time of Appointment with PCP: 10:40am Provider Appointment Comment: [address] [place] [address] Partial or Psych Rehab Name of Partial or Psych Rehab: [facility] [place]- Phone Number of Partial or Psych Rehab: [phone] Hogshead Dumper Name of Hogshead Dumper: [facility] Community Resources- Malu Greenberg Phone Number of Hogshead Dumper: [phone] Date of Appointment with Hogshead Dumper: 12/19/23 Time of Appointment with Hogshead Dumper: 3:00pm; he will come to your residence Hogshead Dumper Appointment Comment: [address], [place] [address] Home Health Services Home Health Services:: Home health agency Home Health Agency: Other Phone Number of Home Services Agency: [phone] Home Health Services Appointment Comment: [facility] Contact Information Discharge Discharge Address: [facility] [address], [place] [address]
[2023-12-16] MEDS: cloZAPine 100 MG TAB PO SCH (17:23)
[2023-12-16] MEDS: cloZAPine 25 MG TAB PO SCH (17:23)
--- NOTE | 2023-12-17 13:06 | Psychiatric Progress Note ---
Date of Service December 17, 2023 Impression / Recommendations Impression As per Dr. Maddox: This gentleman has had a rough time with his thought disorder. He has been in hospitals almost continuously for a year now. It seems that when he was placed into an apartment by himself, he had difficulty functioning and possibly with his adherence to his medication. He cannot really tell me how many days he missed taking his medications. There does not seem to be a genetic predisposition towards schizophrenia. Mother and grandmother have had problems with depression which could make him more likely to have a bipolar illness. MNPR due to severity of psychosis, inability to tolerate peers when hallucinating, etc. 12/15/23: improved 12/16/23: Patient continues to improve and we discussed the fact that he might be discharged on Monday if he continues to remain stable. 12/17/23: Patient stated that he is very tired after his Clozaril. He is now going to take it later at night. We gave him input into when he takes the medications in hope that it will help for his future compliance. (1) Schizoaffective disorder, bipolar type: Plan 12/17/23: The times of patient's scheduled medications have been modified in hope of helping him manage the sedation and hopefully increase the chance of medication compliance after discharge. 12/16/2023: Patient's chart reviewed. HE continues to remain stable. He says his mood has been depressed but he is handling that by listening to music and walking around in the halls. He was pleasant and cooperative throughout the interview. 12/15/2023: CBC reviewed, Clozaril [facility] program updated, will be on q2 week labs upon discharge so 2 week supply can be dispensed with 1 refill for discharge script, awaiting notification of home health hours. Verify appointment with [facility] for coordination of care around labs/refills. 12/13/2023: decrease clozaril to 250 mg, may dose lower today if VS don't improve before dose. 12/11/2023: lithium level 0.8, continue current meds and tx plan. 12/10/2023: shift clozaril to earlier dosing time on a trial basis. Does not appear to need titration beyond 300 mg as ongoing steady improvement and any additional sedation would likely impair compliance as outpatient. 12/09/2023: reviewed lithium level, next level ordered for am 3/4, reviewed clozaril level. Consider dosing clozapine with pm meal if sedation continues. 12/08/23: We will continue with our current level of observation and precautions. I increased his clozapine to 300 mg nightly. I encouraged him to keep going to groups and activities as much as he can tolerate. I am very pleased with his progress and hopeful that in the next several days we may be able to look towards a discharge. 12/07/23: We are going to continue with our current level of observation and precautions. Today, I increased his clozapine 1 more step to 275 mg nightly. I encouraged him to keep going to groups and activities. Will continue to watch for more signs of improvement. 12/06/23: We will continue with our current level of observation and precautions. I increased his lithium to 600 mg in the morning and 1200 mg at night. Given his lithium level of 0.5, that should at least bring up his level closer to 0.8. My goal is 0.9, but I do not want to hurt him by giving him too high of a dose. I also increased his clozapine up to 250 mg nightly. I encouraged him to keep going to groups and activities. We are going to try to get his family involved and discussed the case with the county to see if they may be able to help get him into some type of senior living. 12/05/23: We will continue with her current level of observation and precautions. We will continue with his current doses of medications but he has a clozapine level and lithium level tomorrow morning. I encouraged him to keep going to groups and activities. We are going to look at other options because I do not think he will be able to live independently when he gets out of the hospital. We should get his family involved in that as well. 12/04/23: We are going to continue with his current level of observation and precautions. We will leave the doses of his medications as they are and he is due for a clozapine level and lithium level on Monday, December 06. I encouraged him to keep doing what he is doing to try to get better and show that he is working hard. In the near future we will set up a family meeting to work on discharge planning and safety planning. 12/03/23: We are going to continue with her current level of observation and precautions. I am going to leave the doses of medication as they are for a few days and then check a clozapine level and lithium level on December 06. Hopefully, we will continue to see more improvement. I encouraged the patient to continue to go to groups and activities is much as he can. He is also working on his hygiene still. Will try to set up a family meeting in the next few days. He will likely have a 304 conversion to inpatient early this week. 12/02/23: 1. We will continue with her current level of observation and precautions. I advised the patient to try to take part in our therapeutic milieu, attend groups and activities, maintain good hygiene, and try not to isolate. This is going to be difficult for him. 2. We are still trying to track down the exact doses of his recent medications. I increased his clozapine up to 150 mg because it sounds like he is only missed a few days and I do not want to be too low of a dose. CBC with differential was done yesterday and was fine. We will monitor his CBCs every week. We are also going to switch all of his medications to just once a day after dinner to try to help with his adherence. It will be important to take the Latuda with food. I restarted Latuda at 40 mg at dinnertime. I also switched his lithium to 900 mg at dinnertime. We will check a lithium level in a few days. 3. We also talked about the possibility of starting electroconvulsive therapy (ECT). The combination of clozapine and ECT is probably the best treatment there is for schizophrenia. Also, both lithium and clozapine should decrease his chances of suicide significantly. 4. We will try to set up a family meeting before the patient leaves. He does seem to have some good services already set up. 5. We will need to try to get a better feel for how safe he is to live independently. Suicide Risk Level Suicide Risk Level: Moderate (q15 min suicide checks) Suicide Risk Level Comments: The patient now denies hallucinations and delusions. I think he is now at lower risk of suicide than previously in his inpatient stay. Risk Factors Assessment Do You Have Access To A Gun?: No Protective Factors Assessment Employed: No Interval History Identifying Information NASEEM MCGEE is a 28-year-old M who currently lives alone in an apartment in [place]. He has a history of schizoaffective disorder. He was admitted on 12/01/23 16:41 on a 201 (but has an outpatient commitment). Subsequently converted to inpatient commitment. Chief Complaint "I'm tired at night. I have to go to sleep at 6pm ". Review of Systems Sleep Information Total Hours of Sleep: 8.5 Sleep Comments: Pt in bed before 1900. Meal Information Percent Meal Consumed - Breakfast: 100 Percent Meal Consumed - Lunch: 100 Percent Meal Consumed - Dinner: 90 Nutrition Comment: Pt received double portions Subjective Subjective Patient was seen & assessed and interval progress reviewed with nursing and social work. He stated that he has a stomach ache and diarrhea. I reminded him that there were medications that could help him with these problems and he just needed to ask the nurses. Of note, he did not ask the nurses for the medications and his behavior was not in line with someone with abdominal pain and diarrhea: He continued to walk in the hallways, listening to his music and apparently quite comfortable. His only other complaint was that he was so sleepy after taking his Clozapine in the evening that he had to go to sleep at 6 pm. We discussed with the patient a schedule that he would find doable and he will now be taking the Clozapine later at night. Hopefully with a schedule such as this one, where he had input, this will help with his compliance once he is discharged. Physical Exam Psychiatric Orientation: alert and oriented x 3 Apperance: appropriately dressed and appropriately groomed Eye Contact: good eye contact Motor Behavior: no abnormal motor movements Speech: normal rate/rhythm/volume of speech Affect: euthymic affect (for patient, limited range) Mood: + depressed mood and + anxious mood Thought Process: goal directed thought process and + concrete thought process Thought Content: reality based without delusions Suicidal Thoughts: denies suicidal thoughts Homicidal Thoughts: denies homicidal thoughts Hallucinations: no auditory hallucinations (intermittent, nonspecific) and no visual hallucinations Cognition: attention grossly intact and language grossly intact Estimated Intelligence: consistent with education level Insight: + limited insight Judgment: + limited judgement Vital Signs (Past 24 Hours) Last Vital Signs Temp 36.7 C 12/17/23 06:35 Pulse 80 12/17/23 06:36 Resp 16 12/17/23 06:35 BP 105/68 12/17/23 06:36 Pulse Ox 98 12/10/23 05:57 O2 Del Method Room Air 12/10/23 05:57 Results & Data ([facility]) Current Inpatient Medications Current Inpatient Medications: Current Inpatient Medications Acetaminophen (Acetaminophen 325 Mg Tab) 650 mg PO Q4H PRN PRN Reason: Headache or Minor Fever Stop: 12/31/23 15:47 Al Hydrox/Mg Hydrox/Simethicone (Aluminum/Magnesium Susp 30 Ml Udc) 30 ml PO Q4H PRN PRN Reason: GI Upset Stop: 12/31/23 15:47 Benztropine Mesylate (Benztropine Mesylate 1 Mg Tab) 1 mg PO Q6H PRN PRN Reason: Muscle Spasm Stop: 12/31/23 15:50 Bismuth Subsalicylate (Bismuth Subsalicylate Liqd 236 Ml) 15 ml PO PRN PRN PRN Reason: Loose Stool Stop: 12/31/23 15:47 Clozapine (Clozapine 100 Mg Tab) 200 mg PO HS [facility] Stop: 01/16/24 21:59 Clozapine (Clozapine 25 Mg Tab) 50 mg PO HS [facility] Stop: 01/16/24 21:59 Haloperidol (Haloperidol 5 Mg Tab) 5 mg PO Q4H PRN PRN Reason: hallucinations Stop: 12/31/23 15:50 Last Admin: 12/01/23 17:57 Dose: 5 mg [place] Carbonate ([place] Carbonate 300 Mg Tab) 600 mg PO QAM [facility] Stop: 01/06/24 08:59 Last Admin: 12/17/23 09:14 Dose: 600 mg [place] Carbonate ([place] Carbonate 300 Mg Tab) 1,200 mg PO HS [facility] Stop: 01/16/24 21:59 Lorazepam (Lorazepam 1 Mg Tab) 1 mg PO Q4H PRN PRN Reason: Anxiety/Insomnia Stop: 12/31/23 15:50 Lurasidone HCl (Lurasidone Hcl 20 Mg Tab) 60 mg PO DAILY@1800 [facility] Stop: 01/01/24 17:59 Last Admin: 12/16/23 18:16 Dose: 60 mg Magnesium Hydroxide (Magnesium Hydroxide Susp 30 Ml Udc) 30 ml PO DAILY PRN PRN Reason: Constipation Stop: 12/31/23 15:47 Sodium Chloride (Sodium Chloride 0.65% Na Soln 45 Ml ([place])) 1 - 2 sprays NA PRN PRN PRN Reason: Nasal Dryness/Congestion Stop: 12/31/23 15:47 Mental Health & Subst Abuse Tx Psychiatrist Name of Psychiatrist: Kody Rogers Psychiatrist's Date Of Appointment With Psychiatric Provider: 12/21/2023 Time of Appointment with Psychiatrist: 9am Psychiatric Appointment Comment: [address] [place] [address] Therapist Name of Therapist: [facility] Date of Therapist Appointment: 12/27/2023 Time of Therapist Appointment: 12:30-2pm Therapy Appointment Comment: [address], [place] [address] Gas Welding Machine Operator Name of Gas Welding Machine Operator: MAGDALENE VALERIOU- Noelle Phone Number for Gas Welding Machine Operator: [phone] Date of Appointment with Gas Welding Machine Operator: 12/18/23 Time of Appointment with Gas Welding Machine Operator: 2pm Case Management Appointment Comment: will meet you in the home Post Discharge Appointments Primary Care Physician Name Of Family Doctor/PCP: [facility] Date of Future Appointment with PCP: 12/27/2023 Time of Appointment with PCP: 10:40am Provider Appointment Comment: [address] [place] [address] Partial or Psych Rehab Name of Partial or Psych Rehab: [facility] [place] Phone Number of Partial or Psych Rehab: [phone] Partial or Psych Rehab Appointment Comment: for Iwona Elliott to get new mobile psych worker Manager Non Profit Name of Manager Non Profit: [facility]- Malu Greenberg Phone Number of Manager Non Profit: [phone] Date of Appointment with Manager Non Profit: 12/19/23 Time of Appointment with Manager Non Profit: 3:00pm; he will come to your residence Manager Non Profit Appointment Comment: [address], [place] [address] Home Health Services Home Health Services:: Home health agency Home Health Agency: Other Phone Number of Home Services Agency: [phone] Home Health Services Appointment Comment: [facility] Contact Information Discharge Discharge Address: [facility] [address], [address], [place] [address]
[2023-12-17] MEDS: LITHIUM CARBONATE 300 MG TAB PO SCH (21:54)
[2023-12-17] MEDS: cloZAPine 100 MG TAB PO SCH (21:55)
[2023-12-17] MEDS: cloZAPine 25 MG TAB PO SCH (21:55)
[2023-12-18 06:40] VITALS: TEMP 98.4
--- NOTE | 2023-12-18 08:55 | Discharge Summary ---
Date of Service December 18, 2023 History of Present Illness Today I met with the patient for about 40 minutes. We also had a multidisciplinary treatment team meeting to discuss his care. Patient has been with this multiple times before here on the psychiatric unit. He has a history of schizophrenia, bipolar disorder, and schizoaffective disorder. He presented to the emergency room yesterday with dizziness and suicidal ideation. He said that he stopped taking his medications about 3 days ago. He says he was feeling delusional. He also had thoughts about ending his life by shooting himself. He told me he also had thoughts about jumping in front of a moving truck. When I asked him more about his delusions, he says that they have to do with governments, aliens, and demons. He mostly is describing visual hallucinations with very little if any auditory hallucinations. He also has been having ideas of reference feeling like he is being tapped or people are monitoring his communications. He also describes some mild thought insertion and thought broadcasting. He has been hospitalized here several times and then spent 6 months at [facility]. He recently was placed into an apartment here in [place]. He is not working and is on SSI. He is not in a relationship. He says he sees his family about weekly and they are very supportive. He is not involved in any organized activities or moravian. He does take walks quite a bit. He has no major medical issues that are stressful and no legal issues. He says that his mother is only person he feels he can really open up to. He has been having a lot of difficulty with sleep because of these thoughts that are bothering him. He has a lot of initial insomnia and middle insomnia. He is appetite has been extremely poor and I think that is connected to his delusions. He describes his mood as "depressed and worried." He has anhedonia. Energy has been poor because of the lack of sleep. He spends a lot of time in bed. Concentration is very poor. He describes guilt and blames himself for what is happening. He also says he has some hopelessness. He denies homicidal thoughts. He is having suicidal ideation with the plan as I described above. He denies any self-harm. He says there is no history of any trauma or abuse. He does not smoke, drink, or use any illicit substances. He says he has had manic episodes that occur usually in the summertime and can last up to 3 weeks. During this time his mind will race, he has much less sleep, he has faster speech, grandiosity, in a good mood. He denies any disinhibited behaviors during those times. Physical Exam Psychiatric Orientation: alert and oriented x 3 Apperance: appropriately dressed and appropriately groomed Eye Contact: + fair eye contact Motor Behavior: no abnormal motor movements Speech: normal rate/rhythm/volume of speech Affect: euthymic affect (for patient, limited range) Mood: + depressed mood and + anxious mood Thought Process: goal directed thought process and + concrete thought process Thought Content: reality based without delusions Suicidal Thoughts: denies suicidal thoughts Homicidal Thoughts: denies homicidal thoughts Hallucinations: no auditory hallucinations (intermittent, nonspecific) and no visual hallucinations Cognition: attention grossly intact and language grossly intact Estimated Intelligence: consistent with education level Insight: + limited insight Judgment: + limited judgement Vital Signs (Past 24 Hours) Last Vital Signs Temp 36.9 C 12/18/23 06:38 Pulse 79 12/18/23 06:39 Resp 16 12/18/23 06:38 BP 96/64 L 12/18/23 06:39 Pulse Ox 98 12/10/23 05:57 O2 Del Method Room Air 12/10/23 05:57 Principal Diagnosis Schizoaffective disorder Psychiatric Data See daily stay summary. In short, safety was maintained and the patient was cooperative with care. Patient tolerated medication changes well and . A safety plan was completed prior to discharge. Day of Discharge Assessment Today the patient voices readiness for discharge. They note improvement in mood and deny thoughts to harm self or others. Thoughts remain organized and they are improved from admission. There is no evidence of psychosis. They agree to take medications as prescribed and keep follow-up appointments. They are stable for discharge to outpatient level of care. Transition of Care Transition Of Care Record: was reviewed with the patient Advance Directives Advance Directives Information Provided: Yes Advance Directives: No Mental Health Advance Directive: No Advance Directives on File: No Living Will: No Power of Director Construction Services: No Advance Directives Reason:: Declines as Mental Health Visit. Suicide Risk Level Suicide Risk Level Comments: The patient now denies hallucinations and delusions. I think he is now at lower risk of suicide than previously in his inpatient stay. Risk Factors Assessment Do You Have Access To A Gun?: No Protective Factors Assessment Employed: No Discharge Data Lab Results 12/01/23 12/01/23 12/01/23 10:49 12:28 12:34 WBC 10.55 RBC 6.29 H Hgb 17.1 Hct 50.6 MCV 80.4 MCH 27.2 MCHC 33.8 RDW Std Deviation 40.1 RDW Coeff of Belén 14.2 Plt Count 399 MPV 10.6 Immature Gran % (Auto) 0.7 Neut % (Auto) 74.5 Lymph % (Auto) 17.8 Hidalgo % (Auto) 6.3 Eos % (Auto) 0.2 Baso % (Auto) 0.5 Neut # (Auto) 7.87 H Lymph # (Auto) 1.88 Hidalgo # (Auto) 0.66 H Eos # (Auto) 0.02 Baso # (Auto) 0.05 Immature Gran # (Auto) 0.07 Sodium 139 Potassium 4.0 Chloride 104 Carbon Dioxide 26 Anion Gap 9 BUN 13 Creatinine 1.07 Est Cr Clr Drug Dosing 126.7 Est GFR ( Amer) 108.9 Est GFR (Non-Af Amer) 94.0 BUN/Creatinine Ratio 12.1 Glucose 109 H Fasting Glucose Calcium 10.2 Magnesium 2.2 Total Bilirubin 0.8 AST 26 ALT 24 Alkaline Phosphatase 55 Troponin I High Sens < 2.3 Total Protein 7.8 Albumin 5.0 Globulin 2.8 Albumin/Globulin Ratio 1.8 Triglycerides Cholesterol LDL Cholesterol, Calc VLDL Cholesterol, Calc HDL Cholesterol Cholesterol/HDL Ratio TSH 1.397 Urine Color Dark Yellow Urine Appearance Clear Urine pH 6.0 Ur Specific [place]enton 1.027 Urine Protein Trace H Urine Glucose (UA) Negative Urine Ketones 4+ H Urine Blood Negative Urine Nitrite Negative Urine Bilirubin 1+ H Urine Urobilinogen Negative Ur Leukocyte Esterase 1+ H Urine WBC (Auto) 5-10 H Urine RBC (Auto) 0-4 U Hyaline Cast (Auto) 1-5 U Epithel Cells (Auto) >30 H Urine Bacteria (Auto) Negative Urine Opiates Screen Neg Ur Methadone, Qual Neg Urine Barbiturates Neg Ur Phencyclidine (PCP) Neg Clozapine Norclozapine U Amphetamin/Meth Scrn Neg MDMA (Ecstasy) Screen Neg U Benzodiazepines Scrn Neg Pisek 0.7 Ur Cocaine Metabolite Neg U Marijuana (THC) Screen Neg Ethyl Alcohol mg/dL < 10.0 SARS-CoV-2, RNA, NAAT 12/01/23 12/02/23 12/06/23 Unknown 08:48 09:19 WBC RBC Hgb Hct MCV MCH MCHC RDW Std Deviation RDW Coeff of Belén Plt Count MPV Immature Gran % (Auto) Neut % (Auto) Lymph % (Auto) Hidalgo % (Auto) Eos % (Auto) Baso % (Auto) Neut # (Auto) Lymph # (Auto) Hidalgo # (Auto) Eos # (Auto) Baso # (Auto) Immature Gran # (Auto) Sodium Potassium Chloride Carbon Dioxide Anion Gap BUN Creatinine Est Cr Clr Drug Dosing Est GFR ( Amer) Est GFR (Non-Af Amer) BUN/Creatinine Ratio Glucose Fasting Glucose 99 Calcium Magnesium Total Bilirubin AST ALT Alkaline Phosphatase Troponin I High Sens Total Protein Albumin Globulin Albumin/Globulin Ratio Triglycerides 116 Cholesterol 131 LDL Cholesterol, Calc 74 VLDL Cholesterol, Calc 23 HDL Cholesterol 34 Cholesterol/HDL Ratio 3.9 TSH Urine Color Urine Appearance Urine pH Ur Specific Denton Urine Protein Urine Glucose (UA) Urine Ketones Urine Blood Urine Nitrite Urine Bilirubin Urine Urobilinogen Ur Leukocyte Esterase Urine WBC (Auto) Urine RBC (Auto) U Hyaline Cast (Auto) U Epithel Cells (Auto) Urine Bacteria (Auto) Urine Opiates Screen Ur Methadone, Qual Urine Barbiturates Ur Phencyclidine (PCP) Clozapine 111 Norclozapine 80 U Amphetamin/Meth Scrn MDMA (Ecstasy) Screen U Benzodiazepines Scrn Pisek 0.5 L Ur Cocaine Metabolite U Marijuana (THC) Screen Ethyl Alcohol mg/dL SARS-CoV-2, RNA, NAAT NEGATIVE 12/08/23 12/11/23 12/15/23 09:01 07:06 07:29 WBC 7.19 14.66 H RBC 5.95 5.90 Hgb 15.8 15.5 Hct 50.1 49.1 MCV 84.2 83.2 MCH 26.6 26.3 MCHC 31.5 L 31.6 L RDW Std Deviation 42.7 42.1 RDW Coeff of Belén 14.1 13.8 Plt Count 323 322 MPV 10.1 9.8 Immature Gran % (Auto) 0.7 0.9 Neut % (Auto) 58.8 72.3 Lymph % (Auto) 28.5 16.6 Hidalgo % (Auto) 9.5 8.7 Eos % (Auto) 1.5 1.0 Baso % (Auto) 1.0 0.5 Neut # (Auto) 4.23 10.60 H Lymph # (Auto) 2.05 2.44 Hidalgo # (Auto) 0.68 H 1.27 H Eos # (Auto) 0.11 0.15 Baso # (Auto) 0.07 0.07 Immature Gran # (Auto) 0.05 0.13 Sodium Potassium Chloride Carbon Dioxide Anion Gap BUN Creatinine Est Cr Clr Drug Dosing Est GFR ( Amer) Est GFR (Non-Af Amer) BUN/Creatinine Ratio Glucose Fasting Glucose Calcium Magnesium Total Bilirubin AST ALT Alkaline Phosphatase Troponin I High Sens Total Protein Albumin Globulin Albumin/Globulin Ratio Triglycerides Cholesterol LDL Cholesterol, Calc VLDL Cholesterol, Calc HDL Cholesterol Cholesterol/HDL Ratio TSH Urine Color Urine Appearance Urine pH Ur Specific Denton Urine Protein Urine Glucose (UA) Urine Ketones Urine Blood Urine Nitrite Urine Bilirubin Urine Urobilinogen Ur Leukocyte Esterase Urine WBC (Auto) Urine RBC (Auto) U Hyaline Cast (Auto) U Epithel Cells (Auto) Urine Bacteria (Auto) Urine Opiates Screen Ur Methadone, Qual Urine Barbiturates Ur Phencyclidine (PCP) Clozapine Norclozapine U Amphetamin/Meth Scrn MDMA (Ecstasy) Screen U Benzodiazepines Scrn Pisek 0.8 Ur Cocaine Metabolite U Marijuana (THC) Screen Ethyl Alcohol mg/dL SARS-CoV-2, RNA, NAAT Hospital Course (1) Schizoaffective disorder, bipolar type: Patient is stable, at his baseline, he is now ready for discharge to continue his treatment on an outpatient commitment. Plan 12/18/23: The patient states he is doing well and he is looking forward to discharge later today. 12/17/23: The times of patient's scheduled medications have been modified in hope of helping him manage the sedation and hopefully increase the chance of medication compliance after discharge. 12/16/2023: Patient's chart reviewed. HE continues to remain stable. He says his mood has been depressed but he is handling that by listening to music and walking around in the halls. He was pleasant and cooperative throughout the interview. 12/15/2023: CBC reviewed, Clozaril [facility] program updated, will be on q2 week labs upon discharge so 2 week supply can be dispensed with 1 refill for discharge script, awaiting notification of home health hours. Verify appointment with [facility] for coordination of care around labs/refills. 12/13/2023: decrease clozaril to 250 mg, may dose lower today if VS don't improve before dose. 12/11/2023: lithium level 0.8, continue current meds and tx plan. 12/10/2023: shift clozaril to earlier dosing time on a trial basis. Does not appear to need titration beyond 300 mg as ongoing steady improvement and any additional sedation would likely impair compliance as outpatient. 12/09/2023: reviewed lithium level, next level ordered for am 34, reviewed clozaril level. Consider dosing clozapine with pm meal if sedation continues. 12/08/23: We will continue with our current level of observation and precautions. I increased his clozapine to 300 mg nightly. I encouraged him to keep going to groups and activities as much as he can tolerate. I am very pleased with his progress and hopeful that in the next several days we may be able to look towards a discharge. 12/07/23: We are going to continue with our current level of observation and precautions. Today, I increased his clozapine 1 more step to 275 mg nightly. I encouraged him to keep going to groups and activities. Will continue to watch for more signs of improvement. 12/06/23: We will continue with our current level of observation and precautions. I increased his lithium to 600 mg in the morning and 1200 mg at night. Given his lithium level of 0.5, that should at least bring up his level closer to 0.8. My goal is 0.9, but I do not want to hurt him by giving him too high of a dose. I also increased his clozapine up to 250 mg nightly. I encouraged him to keep going to groups and activities. We are going to try to get his family involved and discussed the case with the county to see if they may be able to help get him into some type of senior care. 12/05/23: We will continue with her current level of observation and precautions. We will continue with his current doses of medications but he has a clozapine level and lithium level tomorrow morning. I encouraged him to keep going to groups and activities. We are going to look at other options because I do not think he will be able to live independently when he gets out of the hospital. We should get his family involved in that as well. 12/04/23: We are going to continue with his current level of observation and precautions. We will leave the doses of his medications as they are and he is due for a clozapine level and lithium level on December 06. I encouraged him to keep doing what he is doing to try to get better and show that he is working hard. In the near future we will set up a family meeting to work on discharge planning and safety planning. 12/03/23: We are going to continue with her current level of observation and precautions. I am going to leave the doses of medication as they are for a few days and then check a clozapine level and lithium level on December 06. Hopefully, we will continue to see more improvement. I encouraged the pa brandon to continue to go to groups and activities is much as he can. He is also working on his hygiene still. Will try to set up a family meeting in the next few days. He will likely have a 304 conversion to inpatient early this week. 12/02/23: 1. We will continue with her current level of observation and precautions. I advised the patient to try to take part in our therapeutic milieu, attend groups and activities, maintain good hygiene, and try not to isolate. This is going to be difficult for him. 2. We are still trying to track down the exact doses of his recent medications. I increased his clozapine up to 150 mg because it sounds like he is only missed a few days and I do not want to be too low of a dose. CBC with differential was done yesterday and was fine. We will monitor his CBCs every week. We are also going to switch all of his medications to just once a day after dinner to try to help with his adherence. It will be important to take the Latuda with food. I restarted Latuda at 40 mg at dinnertime. I also switched his lithium to 900 mg at dinnertime. We will check a lithium level in a few days. 3. We also talked about the possibility of starting electroconvulsive therapy (ECT). The combination of clozapine and ECT is probably the best treatment there is for schizophrenia. Also, both lithium and clozapine should decrease his chances of suicide significantly. 4. We will try to set up a family meeting before the patient leaves. He does seem to have some good services already set up. 5. We will need to try to get a better feel for how safe he is to live independently. Mental Health & Subst Abuse Tx Psychiatrist Name of Psychiatrist: Kody Rogers Psychiatrist's Date Of Appointment With Psychiatric Provider: 12/21/2023 Time of Appointment with Psychiatrist: 9am Psychiatric Appointment Comment: [address] [place] [address] Therapist Name of Therapist: [facility] Date of Therapist Appointment: 12/27/2023 Time of Therapist Appointment: 12:30-2pm Therapy Appointment Comment: [address], [place] [address] Ornament St[employer]cher Name of Ornament Stitcher: MAGDALENE VALERIOULisseth Drake Phone Number for Ornament Stitcher: [phone] Date of Appointment with Ornament Stitcher: 12/18/23 Time of Appointment with Ornament Stitcher: 2pm Case Management Appointment Comment: will meet you in the home Post Discharge Appointments Primary Care Physician Name Of Family Doctor/PCP: Kody Dunn Primary [facility] Date of Future Appointment with PCP: 12/27/2023 Time of Appointment with PCP: 10:40am Provider Appointment Comment: [address] [place] [address] Partial or Psych Rehab Name of Partial or Psych Rehab: [facility] Phone Number of Partial or Psych Rehab: [phone] Partial or Psych Rehab Appointment Comment: for Iwona Elliott to get new mobile psych worker [employer] Name of [employer]: [facility]- Malu Montes; [employer] Phone Number of [employer]: [phone] Date of Appointment with [employer]: 12/19/23 Time of Appointment with [employer]: 3:00pm; he will come to your residence [employer] Appointment Comment: [address], [place] [address] Home Health Services Home Health Services:: Home health agency Home Health Agency: Other Phone Number of Home Services Agency: [phone] Home Health Services Appointment Comment: [facility] Contact Information Discharge Discharge Address: [address] [place] [address] Discharge Plan Discharge Items Reason For Visit: SCHIZOPHRENIA Discharge Diagnosis: Schizophrenia Condition on Discharge: Good Health Concerns: Continued adherence to medications Activity: Resume your previous activity Non-emergency contact: Primary Care Provider Call non-emergency contact if: you have any medication questions Follow-up/Referrals: Brooke Dunn, [Primary Care Provider] - Diet: Regular Addtl Attending Provider Instructions: Follow up with all outpatient appointments and resources provided. Continue taking all medications as prescribed. Pending Studies at Discharge: No Stand-Alone Forms: [employer], Smoking Cessation Skilled Items Discharge Prognosis: Stable Medications and DC Order Prescriptions: New lithium carbonate 300 mg Tablet 600 mg PO QAM Qty: 84 1RF Rx Instructions: and 1200 mg (4 tabs) po qpm clozapine [Clozaril] 50 mg tablet 50 mg PO HS Qty: 14 1RF Rx Instructions: [facility]#[id number] clozapine [Clozaril] 200 mg tablet 200 mg PO HS Qty: 14 1RF Rx Instructions: take with 50 dj=017 mg hs; [facility]#[id number] Continued lurasidone 60 mg Tablet 60 mg PO 1800 Qty: 14 1RF Discontinued clozapine 100 mg tablet 500 mg PO HS lithium carbonate 300 mg tablet extended release 600 mg PO QAM lithium carbonate 450 mg Tablet Extended Release 900 mg PO HS Admission Data Admit Date/Time: 12/01/23 16:41 Attending Provider: Deysi Pedroza Admit Provider: Danica Elliott Primary Care Provider: Brooke Dunn Other Interventions: PSY Interdisciplinary Discharge Planning Last Done: 12/16/23 12:44 [place] [address] D/C day mgmt > 30 min Patient Type Established Medical Decision Making Moderate Complexity Diagnoses Schizoaffective disorder, bipolar type F25.0 Time Spent (min) 45
[2023-12-18 09:30] VITALS: BP 107/68; PULSE 78
--- NOTE | 2023-12-18 12:07 | History & Physical ---
Date of Service December 17, 2023 This was created in error. Please delete. Impression / Recommendations Impression As per Dr. Maddox: This gentleman has had a rough time with his thought disorder. He has been in hospitals almost continuously for a year now. It seems that when he was placed into an apartment by himself, he had difficulty functioning and possibly with his adherence to his medication. He cannot really tell me how many days he missed taking his medications. There does not seem to be a genetic predisposition towards schizophrenia. Mother and grandmother have had problems with depression which could make him more likely to have a bipolar illness. MNPR due to severity of psychosis, inability to tolerate peers when hallucinating, etc. 12/15/23: improved 12/16/23: Patient continues to improve and we discussed the fact that he might be discharged on Monday if he continues to remain stable. 12/17/23: Patient stated that he is very tired after his Clozaril. He is now going to take it later at night. We gave him input into when he takes the medications in hope that it will help for his future compliance. Suicide Risk Level Suicide Risk Level: Moderate (q15 min suicide checks) Suicide Risk Level Comments: The patient now denies hallucinations and delusions. I think he is now at lower risk of suicide than previously in his inpatient stay. Risk Factors Assessment Do You Have Access To A Gun?: No Protective Factors Assessment Employed: No Psychiatric History Identifying Data NASEEM MCGEE is a 28-year-old M who currently lives in [] [alone] with [], has a history of [], and was admitted on 12/01/23 16:41 on a [201 voluntary] [302 involuntary] commitment for []. Chief Complaint "[]". History of Present Illness Today I met with the patient for about 40 minutes. We also had a multidisciplinary treatment team meeting to discuss his care. Patient has been with this multiple times before here on the psychiatric unit. He has a history of schizophrenia, bipolar disorder, and schizoaffective disorder. He presented to the emergency room yesterday with dizziness and suicidal ideation. He said that he stopped taking his medications about 3 days ago. He says he was feeling delusional. He also had thoughts about ending his life by shooting himself. He told me he also had thoughts about jumping in front of a moving truck. When I asked him more about his delusions, he says that they have to do with governments, aliens, and demons. He mostly is describing visual hallucinations with very little if any auditory hallucinations. He also has been having ideas of reference feeling like he is being tapped or people are monitoring his communications. He also describes some mild thought insertion and thought broadcasting. He has been hospitalized here several times and then spent 6 months at [facility]. He recently was placed into an apartment here in [place]. He is not working and is on SSI. He is not in a relationship. He says he sees his family about weekly and they are very supportive. He is not involved in any organized activities or taoist. He does take walks quite a bit. He has no major medical issues that are stressful and no legal issues. He says that his mother is only person he feels he can really open up to. He has been having a lot of difficulty with sleep because of these thoughts that are bothering him. He has a lot of initial insomnia and middle insomnia. He is appetite has been extremely poor and I think that is connected to his delusions. He describes his mood as "depressed and worried." He has anhedonia. Energy has been poor because of the lack of sleep. He spends a lot of time in bed. Concentration is very poor. He describes guilt and blames himself for what is happening. He also says he has some hopelessness. He denies homicidal thoughts. He is having suicidal ideation with the plan as I described above. He denies any self-harm. He says there is no history of any trauma or abuse. He does not smoke, drink, or use any illicit substances. He says he has had manic episodes that occur usually in the summertime and can last up to 3 weeks. During this time his mind will race, he has much less sleep, he has faster speech, grandiosity, in a good mood. He denies any d isinhibited behaviors during those times. Past Psychiatric History Current Psychiatric Diagnosis: schizophrenia Do You Have Access To A Gun?: No History of Previous Suicide Attempt: No Allergies Allergy/AdvReac Type Severity Reaction Status Date / Time No Known Allergies Allergy Verified 12/20/22 12:07 Home Medications Medication Instructions Recorded Confirmed Type clozapine 200 mg tablet (Clozaril) 200 mg PO HS #14 tabs 12/15/23 Rx clozapine 50 mg tablet (Clozaril) 50 mg PO HS #14 tabs 12/15/23 Rx lithium carbonate 300 mg tablet 600 mg (2 x 300 mg) PO QAM #84 tabs 12/15/23 Rx lurasidone 60 mg tablet 60 mg PO 1800 #14 tabs 12/15/23 Rx Family History Family History of: Depression (Mother and maternal grandmother) Alcohol History Hx of Alcohol Use Over the Past 12 Months: No Smoking Use Have You Smoked or Used Tobacco Products in the Last 30 Days: No Smoking Status: Never smoker Substance History Hx of Prescription Med Misuse Over the Past 12 Months: No Hx of Over the Counter Med Misuse Over the Past 12 Months: No Hx of Inhalent Misuse Over the Past 12 Months: No Hx of Organic Substance Use Over the Past 12 Months: No Hx of Illegal Substances/Street Drug Use Over Past 12 Months: No Problems as a Result of Past Substance Use: None Identified Personal History Living Arrangements: Apartment Highest Grade Completed: College Marital Status: Single Number Of Children: 0 Beliefs That Will Affect Care: None Hx Legal Problems: No Hx Traumatic Life Events: No Patient History Medical History Suicidal ideation Suicidal ideation Lab test negative for COVID-19 virus Bipolar disorder Surgical History No pertinent past surgical history Family History Other No pertinent family history in first degree relatives Social History Smoking Status: Never smoker Preferred Language: Estonian Communication Ability: Effective 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 Beliefs That Will Affect Care: None Feels Safe at Home: Yes Gender Identity: Male Assistive Devices: None Physical Exam Vital Signs (Past 24 Hours): Last Vital Signs Temp 36.7 C 12/17/23 06:35 Pulse 80 12/17/23 06:36 Resp 16 12/17/23 06:35 BP 105/68 12/17/23 06:36 Pulse Ox 98 12/10/23 05:57 O2 Del Method Room Air 12/10/23 05:57 Results & Data ([facility]) Current Inpatient Medications Current Inpatient Medications: Current Inpatient Medications Acetaminophen (Acetaminophen 325 Mg Tab) 650 mg PO Q4H PRN PRN Reason: Headache or Minor Fever Stop: 12/31/23 15:47 Al Hydrox/Mg Hydrox/Simethicone (Aluminum/Magnesium Susp 30 Ml Udc) 30 ml PO Q4H PRN PRN Reason: GI Upset Stop: 12/31/23 15:47 Benztropine Mesylate (Benztropine Mesylate 1 Mg Tab) 1 mg PO Q6H PRN PRN Reason: Muscle Spasm Stop: 12/31/23 15:50 Bismuth Subsalicylate (Bismuth Subsalicylate Liqd 236 Ml) 15 ml PO PRN PRN PRN Reason: Loose Stool Stop: 12/31/23 15:47 Clozapine (Clozapine 100 Mg Tab) 200 mg PO HS VIVIAN Stop: 01/16/24 21:59 Clozapine (Clozapine 25 Mg Tab) 50 mg PO HS VIVIAN Stop: 01/16/24 21:59 Haloperidol (Haloperidol 5 Mg Tab) 5 mg PO Q4H PRN PRN Reason: hallucinations Stop: 12/31/23 15:50 Last Admin: 12/01/23 17:57 Dose: 5 mg Galliano Carbonate (Galliano Carbonate 300 Mg Tab) 600 mg PO QAM VIVIAN Stop: 01/06/24 08:59 Last Admin: 12/17/23 09:14 Dose: 600 mg Galliano Carbonate (Galliano Carbonate 300 Mg Tab) 1,200 mg PO HS VIVIAN Stop: 01/16/24 21:59 Lorazepam (Lorazepam 1 Mg Tab) 1 mg PO Q4H PRN PRN Reason: Anxiety/Insomnia Stop: 12/31/23 15:50 Lurasidone HCl (Lurasidone Hcl 20 Mg Tab) 60 mg PO DAILY@1800 VIVIAN Stop: 01/01/24 17:59 Last Admin: 12/16/23 18:16 Dose: 60 mg Magnesium Hydroxide (Magnesium Hydroxide Susp 30 Ml Udc) 30 ml PO DAILY PRN PRN Reason: Constipation Stop: 12/31/23 15:47 Sodium Chloride (Sodium Chloride 0.65% Na Soln 45 Ml ([place])) 1 - 2 sprays NA PRN PRN PRN Reason: Nasal Dryness/Congestion Stop: 12/31/23 15:47
== END 2023-12-18 12:25 | disposition home or self-care (01) | DRG 885 ==
LOC: ED 10:13 → SUATTDRO 16:41 → 3S 16:41

== ENCOUNTER 2024-01-17 16:00 | Inpatient (IN) ==
--- NOTE | 2024-01-17 16:39 | Emergency Department Note ---
Impression & Plan Suicidal thoughts ADMIT ED Provider Note HPI: History obtained from patient The patient is a 28-year-old male who presents to the emergency department with a chief complaint of suicidal thoughts. Patient states he has a history of schizoaffective disorder, bipolar type. Patient states he has been taking his medications as prescribed. Patient states that he is having "delusions" nothing is real and all of life is just a simulation. He states that it does not matter if he is alive or . Patient states he was having thoughts of wanting to jump in front of a tractor-trailer on the highway to kill himself. Patient states he feels that he needs inpatient psychiatric care. On arrival here to the ED the patient is alert and oriented, he is able to have a coherent conversation with me, he denies any recent alcohol or drug use. Patient is otherwise in no acute distress. ROS: - Per HPI Differential Diagnosis: Suicidal thoughts, acute psychosis, amongst other potential pathologies. *Outpatient medications and allergy history reviewed. PE: General: Alert HEENT: Normocephalic, trachea midline Eyes: Extraocular eye movement is intact, no scleral erythema Pulmonary: Clear to auscultation bilaterally, no wheezing Cardio: Regular rate and rhythm GI: Abdomen is soft to palpation : No suprapubic tenderness MSK: No evidence of trauma or malformation of the extremities, no edema Skin: No evidence of rash Neuro: Alert, no focal deficits Psychiatric: Cooperative Medical Decision Making: Medical screening lab work was obtained, patient has a mild elevated white blood cell count 11.32 that is considered nonspecific, hemoglobin is normal, platelet count is normal, CMP does not show any critical findings, urine drug screen is negative. Alcohol level is negative. COVID testing is negative. Patient was assessed for inpatient admission to the [facility] unit and was ultimately accepted under voluntary 201. Patient was transferred to [facility] in stable condition for inpatient care. Consultants/Discussions held with other healthcare providers: -Case Management Diagnosis: 1. Suicidal thoughts, acute 2. 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 Beliefs That Will Affect Care: None Feels Safe at Home: Yes Gender Identity: Male Assistive Devices: None Allergies Allergies Allergy/AdvReac Type Severity Reaction Status Date / Time No Known Allergies Allergy Verified 01/17/24 17:00 Home Meds Previous Rx's Medication Instructions Recorded clozapine 200 mg tablet (Clozaril) 200 mg PO HS #14 tabs 12/15/23 clozapine 50 mg tablet (Clozaril) 50 mg PO HS #14 tabs 12/15/23 lithium carbonate 300 mg tablet 600 mg (2 x 300 mg) PO QAM #84 tabs 12/15/23 lurasidone 60 mg tablet 60 mg PO 1800 #14 tabs 12/15/23 Results & Data (ED) Vital Signs Vital Signs - 24 hr 01/17/24 16:01 01/17/24 16:05 01/17/24 18:15 Temperature 36.7 C Temperature Source Skin Pulse Rate 85 Pulse Rate [Left Finger] 76 Pulse Rhythm [Left Finger] Regular Respiratory Rate 18 17 Respiratory Effort / Characteristics Non-Labored Spontaneous Respiratory Depth Normal Normal Respiratory Pattern Regular Blood Pressure 114/78 Blood Pressure [Left Arm] 123/80 Blood Pressure Mean 90 Blood Pressure Mean [Left Arm] 94 Blood Pressure Position [Left Arm] Semi-fowlers Pulse Oximetry 99 99 Oxygen Delivery Method Room Air Room Air Sepsis Recent Fever Within 48 Hours No Sepsis New/Unexplained Change in Mental Status No Sepsis Action Taken by Nursing No Action Required 01/17/24 20:06 Temperature 36.7 C Temperature Source Oral Pulse Rate Pulse Rate [Left Finger] 78 Pulse Rhythm [Left Finger] Respiratory Rate 17 Respiratory Effort / Characteristics Respiratory Depth Respiratory Pattern Blood Pressure Blood Pressure [Left Arm] 158/91 H Blood Pressure Mean Blood Pressure Mean [Left Arm] 113 Blood Pressure Position [Left Arm] Lying Pulse Oximetry 99 Oxygen Delivery Method Room Air Sepsis Recent Fever Within 48 Hours Sepsis New/Unexplained Change in Mental Status Sepsis Action Taken by Nursing Laboratory Data 01/17/24 16:13 01/17/24 16:13 Lab Results 01/17/24 01/17/24 Range/Units 16:13 19:21 WBC 11.32 H (4.8-10.8) K/ul RBC 5.67 (4.70-6.10) M/uL Hgb 15.2 (14.0-18.0) g/dl Hct 46.4 (42.0-52.0) % MCV 81.8 (80.0-100.0) fL MCH 26.8 (25.0-34.0) pg MCHC 32.8 (32.0-36.0) g/dL RDW Std Deviation 43.4 (36.4-46.3) fL RDW Coeff of Belén 14.6 H (11.5-14.5) % Plt Count 338 (130-400) K/uL MPV 10.3 (9.4-12.4) fL Immature Gran % (Auto) 0.4 % Neut % (Auto) 69.6 % Lymph % (Auto) 20.5 % [place] % (Auto) 7.6 % Eos % (Auto) 1.3 % Baso % (Auto) 0.6 % Neut # (Auto) 7.87 H (1.40-6.50) K/uL Lymph # (Auto) 2.32 (1.20-3.40) K/uL [place] # (Auto) 0.86 H (0.11-0.59) K/uL Eos # (Auto) 0.15 (0.00-0.50) K/uL Baso # (Auto) 0.07 (0.00-0.20) K/uL Immature Gran # (Auto) 0.05 (0.01-0.20) K/uL Sodium 139 (136-145) mmol/L Potassium 4.0 (3.5-5.1) mmol/L Chloride 107 (98-107) mmol/L Carbon Dioxide 28 (21-32) mmol/L Anion Gap 4 (3-11) BUN 11 (6-23) mg/dl Creatinine 1.12 (0.6-1.4) mg/dl Est Cr Clr Drug Dosing 122.1 ml/min Est GFR ( Amer) 103.1 ml/min Est GFR (Non-Af Amer) 88.9 ml/min BUN/Creatinine Ratio 9.8 L (10-20) Glucose 98 (70-99(Fasting)) mg/dl Calcium 9.7 (8.6-10.3) mg/dl Total Bilirubin 0.5 (0.2-1.0) mg/dl AST 29 (13-39) U/L ALT 28 (7-52) U/L Alkaline Phosphatase 46 (34-104) U/L Total Protein 7.0 (6.0-8.3) gm/dl Albumin 4.8 (3.4-5.0) gm/dl Globulin 2.2 L (2.5-4.0) gm/dl Albumin/Globulin Ratio 2.2 H (0.9-2) TSH 1.786 (0.300-4.500) uIu/ml Urine Color Yellow Urine Appearance Clear (Clear) Urine pH 7.5 (4.5-7.5) Ur Specific [place] 1.009 (1.000-1.030) Urine Protein Negative (Negative) Urine Glucose (UA) Negative (Negative) Urine Ketones Negative (Negative) Urine Blood Negative (Negative) Urine Nitrite Negative (Negative) Urine Bilirubin Negative (Negative) Urine Urobilinogen Negative (Negative) Ur Leukocyte Esterase Trace H (Negative) Urine WBC (Auto) 0-5 (0-5) /hpf Urine RBC (Auto) 0-2 (0-2) /hpf U Hyaline Cast (Auto) 0-2 (0-2) /lpf U Epithel Cells (Auto) 0-2 (0-2) /hpf Urine Bacteria (Auto) None Seen (None Seen) Salicylates < 3.0 L (3.0-30) mg/dl Urine Opiates Screen Neg (Neg) Ur Methadone, Qual Neg (Neg) Acetaminophen < 3 L (10-30) ug/ml Urine Barbiturates Neg (Neg) Ur Phencyclidine (PCP) Neg (Neg) U Amphetamin/Meth Scrn Neg (Neg) MDMA (Ecstasy) Screen Neg (Neg) U Benzodiazepines Scrn Neg (Neg) Ur Cocaine Metabolite Neg (Neg) U Marijuana (THC) Screen Neg (Neg) Ethyl Alcohol mg/dL < 10.0 (<10.0) mg/dl SARS-CoV-2, RNA, NAAT NEGATIVE (NEGATIVE) Discharge Plan Visit Data Chief Complaint: Mental Health Evaluation Stated Complaint: SUICIDAL THOUGHTS/DELUSIONS ED Provider: Farrukh Matthews Discharge Problem: Suicidal thoughts Patient Disposition: Admitted As Inpatient
[2024-01-17 16:45] LABS: Basophils # (auto) 0.07 K/uL (0.00-0.20); Basophils % (auto) 0.6 %; Eosinophils # (auto) 0.15 K/uL (0.00-0.50); Eosinophils % (auto) 1.3 %; Hematocrit (blood only) 46.4 % (42.0-52.0); Hemoglobin 15.2 g/dl (14.0-18.0); Immature Granulocytes # (auto) 0.05 K/uL (0.01-0.20); Immature Granulocytes % (auto) 0.4 %; Lymphocytes # (auto) 2.32 K/uL (1.20-3.40); Lymphocytes % (auto) 20.5 %; Mean Corpuscular Hemoglobin 26.8 pg (25.0-34.0); Mean Corpuscular Hgb Conc 32.8 g/dL (32.0-36.0); Mean Corpuscular Volume 81.8 fL (80.0-100.0); Mean Platelet Volume 10.3 fL (9.4-12.4); Monocytes # (auto) 0.86 K/uL (0.11-0.59); Monocytes % (auto) 7.6 %; Neutrophils # (auto) 7.87 K/uL (1.40-6.50); Neutrophils % (auto) 69.6 %; Platelet Count 338 K/uL (130-400); RDW Coefficient of Variation 14.6 % (11.5-14.5); RDW Standard Deviation 43.4 fL (36.4-46.3); Red Blood Count 5.67 M/uL (4.70-6.10); White Blood Count 11.32 K/ul (4.8-10.8)
[2024-01-17 16:57] LABS: Acetaminophen < 3 ug/ml (10-30); Salicylate < 3.0 mg/dl (3.0-30)
[2024-01-17 17:00] LABS: Albumin Globulin Ratio 2.2 (0.9-2); Albumin Level 4.8 gm/dl (3.4-5.0); BUN Creatinine Ratio 9.8 (10-20); Bilirubin,Total 0.5 mg/dl (0.2-1.0); Calcium 9.7 mg/dl (8.6-10.3); Creatinine Clr Calc Pharmacy 122.1 ml/min; Est GFR (African American) 103.1 ml/min; Est GFR (Non-African American) 88.9 ml/min; Globulin 2.2 gm/dl (2.5-4.0)
[2024-01-17 17:15] LABS: Thyroid Stimulating Hormone 1.786 uIu/ml (0.300-4.500)
[2024-01-17 17:29] LABS: Appearance Urine Clear (Clear); Bacteria Urine Automated None Seen (None Seen); Bilirubin Urine Negative (Negative); Blood Urine Negative (Negative); Cast Urine Automated 0-2 /lpf (0-2); Color Urine Yellow; Epithelial Cell Urine Auto 0-2 /hpf (0-2); Glucose Urine UA Negative (Negative); Ketones Urine Negative (Negative); Leukocyte Esterase Urine Trace (Negative); Nitrite Urine Negative (Negative); Protein Urine Negative (Negative); RBC Urine Automated 0-2 /hpf (0-2); Specific Gravity Urine 1.009 (1.000-1.030); Urobilinogen Urine Negative (Negative); WBC Urine Automated 0-5 /hpf (0-5); pH Urine 7.5 (4.5-7.5)
[2024-01-17 17:50] LABS: Amphetamines+Metham, Urine Neg (Neg); Barbiturates, Urine Neg (Neg); Benzodiazepine, Urine Neg (Neg); Cocaine, Urine Neg (Neg); MDMA (Ecstacy), Urine Neg (Neg); Marijuana, Urine Neg (Neg); Methadone, Urine Neg (Neg); Opiate, Urine Neg (Neg); Phencyclidine, Urine Neg (Neg)
[2024-01-17] MEDS ORDERED: BISMUTH SUBSALICYLATE LIQD 236 ML PO PRN (22:37)
[2024-01-17] MEDS ORDERED: SODIUM CHLORIDE 0.65% NA SOLN 45 ML (OCEAN) PRN (22:37)
[2024-01-17] MEDS ORDERED: ALUMINUM/MAGNESIUM SUSP 30 ML UDC PO PRN (22:37)
[2024-01-17] MEDS ORDERED: MAGNESIUM HYDROXIDE SUSP 30 ML UDC PO PRN (22:37)
[2024-01-17] MEDS ORDERED: ACETAMINOPHEN 325 MG TAB PO PRN (22:37)
[2024-01-17] MEDS ORDERED: hydrOXYzine HCl 25 MG TAB PO PRN ×2 (22:37)
[2024-01-17] MEDS: cloZAPine 25 MG TAB PO STA (23:10)
[2024-01-17] MEDS: LURASIDONE HCL 20 MG TAB PO STA (23:11)
[2024-01-17] MEDS: LITHIUM CARBONATE 300 MG TAB PO STA (23:11)
--- NOTE | 2024-01-18 08:54 | History & Physical ---
Date of Service January 18, 2024 Impression / Recommendations Mireille Mcghee presents for increased SI with thoughts of walking into traffic on the highway or slitting his wrists with goal of hitting an artery in the context of increased distress from delusions about what is real, derealization and sense that the government may be trying to have him killed. Diagnostically consistent with exacerbation of schizoaffective disorder. He continues to struggle to function outside of inpatient hospital settings, representing after recent admission last month and following 6 month admission to [facility] from late April - October. He reports adherence with his psychiatric medications so unclear if worsening symptoms are due to lack of efficacy or alternative factors such as loneliness or heightened paranoia from unclear factors. Now on 305 inpatient commitment. He consents to continuing his current medications of [place], Latuda and Clozapine. Reviewed side effects including but not limited to: need for routine labwork especially with clozapine (he's currently on q2 week blood draws), metabolic, movement, thyroid and renal side effects. ANC reviewed and stable to continue with clozapine. MNPR due to psychosis with persecutory delusions and paranoia Overall I spent a total of 85 minutes for this admission including review of chart records, review of labwork, direct evaluation of the patient, counseling the patient, ordering medication, risk assessment, discussion with the psychiatric liason RN and documentation in the electronic health record, completion of 306 conversion paperwork and attendance at 306 hearing. (1) Suicidal thoughts: (2) Schizoaffective disorder, bipolar type: (3) Delusions: Plan 01/17/2024: The patient was admitted to the [facility] ([facility] mental health unit) on q15 min checks (behavioral with suicide precautions) for safety. The patient will participate in group, recreational, and milieu therapies and will be offered additional individual and family sessions as clinically rai ropriate. * Continue [place], Clozapine and Latuda * AM labwork to include Li level, clozapine level and fasting lipid panel and glucose Inventory Assets Strengths: supportive family, willing to get treatment Needs: safety and stabilization, medication adjustment, additional coping skills, increased outpatient services Suicide Risk Level Suicide Risk Level: High-Moderate (q15 min suicide checks) (depression with SI with plan prior to admission and psychosis but feels safe in the hospital, able to safety contract and agrees to let nursing/staff know should they develop plan, intent or feel unable to remain safe.) Suicide Risk Level Comments: Risk Factors Assessment Male: Yes : Yes Do You Have Access To A Gun?: No Mental Health Diagnoses: Yes Previous Attempt: Yes Previous Psychiatric Hospitalization: Yes Protective Factors Assessment Employed: No Supportive Family: Yes Psychiatric History Identifying Data NASEEM MCGEE is a 28-year-old M who currently lives in [place] alone, has a history of schizoaffective disorder, and was admitted on 01/17/24 21:46 on a 201 voluntary commitment with outpatient [address] for SI with plan and increased psychosis. Chief Complaint "I was thinking about walking onto the highway". History of Present Illness Taz presents for increased SI with thoughts of walking into traffic on the highway or slitting his wrists with goal of hitting an artery in the context of increased distress from delusions about what is real and sense that the government may be trying to have him killed. He was previously on the [facility] from 03/14/2023 - 05/05/2023 and then he was at [facility] for 6 months from April - October 2023 and then re-presented shortly after discharge to [facility] om 12/02/2023 - 12/18/2023. During his most recent admission his clozapine was adjusted and he was restarted on lithium and latuda. He reports engaging in activities such as walking, listening to music, and using coping skills and isn't sure why he started to develop SI and increased delusions and "paranoia". States he was attending mymission2 but stopped due to experiencing dizziness and hallucinations on the days he was planning to attend. States he has been continuing to take his medications daily and his mother comes by every day to remind him to take them. States he has been having difficulty distinguishing between reality and delusions, with thoughts of government conspiracies and feeling like someone is out to get him. He denies any auditory hallucinations but reports visual halluc inations of nuclear explosions and armies and "flashes". These feelings and his SI have decreased since being in the hospital but he isn't sure why. He reports experiencing side effects such as dizziness and hallucinations from Clozapine and wonders about swapping it for other medications, but is open to increasing the dose if needed. He has been taking [place] and Latuda without issues. Denies any recent self-harm or other new symptoms. Past Psychiatric History Current Psychiatric Diagnosis: schizoaffective disorder Outpatient Services: [facility], [facility], [facility] through [facility] Previous Psych Admissions: multiple most recently [facility] late Nov - December. Prior to that [facility] for 6 months. Do You Have Access To A Gun?: No History of Previous Suicide Attempt: Yes (few years ago) Past Medication Trials: many including multiple antipsychotic medication trials Past Head Trauma/Neuro History History of Concussion/Seizure: No Allergies Allergy/AdvReac Type Severity Reaction Status Date / Time No Known Allergies Allergy Verified 01/17/24 17:00 Home Medications Medication Instructions Recorded Confirmed Type clozapine 200 mg tablet (Clozaril) 200 mg PO HS #14 tabs 12/15/23 01/17/24 Rx clozapine 50 mg tablet (Clozaril) 50 mg PO HS #14 tabs 12/15/23 01/17/24 Rx lithium carbonate 300 mg tablet 600 mg (2 x 300 mg) PO QAM #84 tabs 12/15/23 01/17/24 Rx lurasidone 60 mg tablet 60 mg PO 1800 #14 tabs 12/15/23 01/17/24 Rx lithium carbonate 300 mg capsule 1,200 mg PO HS 01/18/24 01/18/24 History Family History Family History of: Depression Alcohol History Hx of Alcohol Use Over the Past 12 Months: No AUDIT Total Score: 0 Smoking Use Have You Smoked or Used Tobacco Products in the Last 30 Days: No Smoking Status: Never smoker Substance History Hx of Prescription Med Misuse Over the Past 12 Months: No Hx of Over the Counter Med Misuse Over the Past 12 Months: No Hx of Inhalent Misuse Over the Past 12 Months: No Hx of Organic Substance Use Over the Past 12 Months: No Hx of Illegal Substances/Street Drug Use Over Past 12 Months: No Problems as a Result of Past Substance Use: None Identified Personal History Living Arrangements: Apartment Highest Grade Completed: College Employment Status: Unemployed Marital Status: Single Beliefs That Will Affect Care: None Current Legal Problems: No Hx Legal Problems: No Hx Traumatic Life Events: No Patient History Medical History Dizziness Suicidal ideation Suicidal ideation Suicidal ideation Lab test negative for COVID-19 virus Bipolar disorder Surgical History No pertinent past surgical history Family History Other No pertinent family history in first degree relatives Social History Smoking Status: Never smoker Preferred Language: Occitan Communication Ability: Effective 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 Beliefs That Will Affect Care: None Feels Safe at Home: Yes Gender Identity: Male Assistive Devices: None Review of Systems Review of Systems: All systems reviewed & are unremarkable except as noted in HPI & below Physical Exam Psychiatric: Orientation: alert and oriented x 3 Apperance: appropriately dressed and appropriately groomed Eye Contact: + poor eye contact Motor Behavior: no abnormal motor movements Speech: + abnormal rate/rhythm/volume o f speech (soft, slow) Affect: + depressed affect and + flat affect Mood: + depressed mood Thought Process: + concrete thought process (brief) Thought Content: + paranoid, + derealization, + persecution and + hopelessness Suicidal Thoughts: denies suicidal intent; + reports suicidal thoughts and + reports suicidal plan (none for hospital, outside for traffic or slitting artery) Homicidal Thoughts: denies homicidal thoughts Hallucinations: + visual hallucinations; no auditory hallucinations Cognition: recent memory grossly intact, remote memory grossly intact, attention grossly intact and language grossly intact Estimated Intelligence: consistent with education level Insight: + limited insight Judgment: + limited judgement Vital Signs (Past 24 Hours): Last Vital Signs Temp 36.5 C 01/18/24 06:34 Pulse 94 H 01/18/24 06:35 Resp 16 01/18/24 06:34 BP 117/71 01/18/24 06:35 Pulse Ox 99 01/17/24 22:47 O2 Del Method Room Air 01/17/24 22:47 Results & Data ([facility]) Laboratory Results Laboratory Results - last 24 hr 01/17/24 01/17/24 16:13 19:21 WBC 11.32 H RBC 5.67 Hgb 15.2 Hct 46.4 MCV 81.8 MCH 26.8 MCHC 32.8 RDW Std Deviation 43.4 RDW Coeff of Belén 14.6 H Plt Count 338 MPV 10.3 Immature Gran % (Auto) 0.4 Neut % (Auto) 69.6 Lymph % (Auto) 20.5 Wilcox % (Auto) 7.6 Eos % (Auto) 1.3 Baso % (Auto) 0.6 Neut # (Auto) 7.87 H Lymph # (Auto) 2.32 Wilcox # (Auto) 0.86 H Eos # (Auto) 0.15 Baso # (Auto) 0.07 Immature Gran # (Auto) 0.05 Sodium 139 Potassium 4.0 Chloride 107 Carbon Dioxide 28 Anion Gap 4 BUN 11 Creatinine 1.12 Est Cr Clr Drug Dosing 122.1 Est GFR ( Amer) 103.1 Est GFR (Non-Af Amer) 88.9 BUN/Creatinine Ratio 9.8 L Glucose 98 Calcium 9.7 Total Bilirubin 0.5 AST 29 ALT 28 Alkaline Phosphatase 46 Total Protein 7.0 Albumin 4.8 Globulin 2.2 L Albumin/Globulin Ratio 2.2 H TSH 1.786 Urine Color Yellow Urine Appearance Clear Urine pH 7.5 Ur Specific Pax 1.009 Urine Protein Negative Urine Glucose (UA) Negative Urine Ketones Negative Urine Blood Negative Urine Nitrite Negative Urine Bilirubin Negative Urine Urobilinogen Negative Ur Leukocyte Esterase Trace H Urine WBC (Auto) 0-5 Urine RBC (Auto) 0-2 U Hyaline Cast (Auto) 0-2 U Epithel Cells (Auto) 0-2 Urine Bacteria (Auto) None Seen Salicylates < 3.0 L Urine Opiates Screen Neg Ur Methadone, Qual Neg Acetaminophen < 3 L Urine Barbiturates Neg Ur Phencyclidine (PCP) Neg U Amphetamin/Meth Scrn Neg MDMA (Ecstasy) Screen Neg U Benzodiazepines Scrn Neg Ur Cocaine Metabolite Neg U Marijuana (THC) Screen Neg Ethyl Alcohol mg/dL < 10.0 SARS-CoV-2, RNA, NAAT NEGATIVE Current Inpatient Medications Current Inpatient Medications: Current Inpatient Medications Acetaminophen (Acetaminophen 325 Mg Tab) 650 mg PO Q4H PRN PRN Reason: Headache or Minor Fever Stop: 02/16/24 22:36 Al Hydrox/Mg Hydrox/Simethicone (Aluminum/Magnesium Susp 30 Ml Udc) 30 ml PO Q4H PRN PRN Reason: GI Upset Stop: 02/16/24 22:36 Bismuth Subsalicylate (Bismuth Subsalicylate Liqd 236 Ml) 15 ml PO PRN PRN PRN Reason: Loose Stool Stop: 02/16/24 22:36 Hydroxyzine HCl (Hydroxyzine Hcl 25 Mg Tab) 50 mg PO HSZ PRN PRN Reason: Insomnia Stop: 02/16/24 22:36 Hydroxyzine HCl (Hydroxyzine Hcl 25 Mg Tab) 25 mg PO Q4H PRN PRN Reason: Anxiety Stop: 02/16/24 22:36 Magnesium Hydroxide (Magnesium Hydroxide Susp 30 Ml Udc) 30 ml PO DAILY PRN PRN Reason: Constipation Stop: 02/16/24 22:36 Sodium Chloride (Sodium Chloride 0.65% Na Soln 45 Ml ([place])) 1 - 2 sprays NA PRN PRN PRN Reason: Nasal Dryness/Congestion Stop: 02/16/24 22:36
[2024-01-18] MEDS: LITHIUM CARBONATE 300 MG TAB PO SCH ×2 (11:31→20:57)
[2024-01-18] MEDS: LURASIDONE HCL 20 MG TAB PO SCH (17:49)
[2024-01-18] MEDS: cloZAPine 100 MG TAB PO SCH (20:55)
[2024-01-18] MEDS: cloZAPine 25 MG TAB PO SCH (20:55)
--- NOTE | 2024-01-19 09:09 | Psychiatric Progress Note ---
Date of Service January 19, 2024 Impression / Recommendations Mireille Mcghee presents for increased SI with thoughts of walking into traffic on the highway or slitting his wrists with goal of hitting an artery in the context of increased distress from delusions about what is real, derealization and sense that the government may be trying to have him killed. Diagnostically consistent with exacerbation of schizoaffective disorder. He continues to struggle to function outside of inpatient hospital settings, representing after recent admission last month and following 6 month admission to [facility] from late April - October. He reports adherence with his psychiatric medications so unclear if worsening symptoms are due to lack of efficacy or alternative factors such as loneliness or heightened paranoia from unclear factors. Now on 305 inpatient commitment. MNPR due to psychosis with persecutory delusions and paranoia 01/19/2024: Fewer delusions and less SI but still struggles to identify causes of decompensation outside of the inpatient environment though he is motivated to avoid hospitalization. Goal of increasing structure in outpatient setting. Li level consistent with regular use and therapeutic at 1.0. Lipid panel, glucose and HbA1c reassuring. Clozapine level pending. Overall, I spent a total of 35 minutes on this case including meeting with the patient, reviewing the chart, nursing report, multidisciplinary team meeting, orders, and documentation. (1) Suicidal thoughts: (2) Schizoaffective disorder, bipolar type: (3) Delusions: Plan 01/19/2024: Continue current medications and tx plan. Consider clozapine adjustment once level comes back. 01/18/2024: The patient was admitted to the [facility] on q15 min checks (behavioral with suicide precautions) for safety. The patient will participate in group, recreational, and milieu therapies and will be offered additional individual and family sessions as clinically appropriate. * Continue [place], Clozapine and Latuda * AM labwork to include Li level, clozapine level and fasting lipid panel and glucose Inventory Assets Strengths: supportive family, willing to get treatment Needs: safety and stabilization, medication adjustment, additional coping skills, increased outpatient services Suicide Risk Level Suicide Risk Level: Moderate (q15 min suicide checks) (depression with SI with plan prior to admission and psychosis but feels safe in the hospital, able to safety contract and agrees to let nursing/staff know should they develop plan, intent or feel unable to remain safe.) Suicide Risk Level Comments: Risk Factors Assessment Male: Yes : Yes Do You Have Access To A Gun?: No Mental Health Diagnoses: Yes Previous Attempt: Yes Previous Psychiatric Hospitalization: Yes Protective Factors Assessment Employed: No Supportive Family: Yes Interval History Identifying Information NASEEM MGCEE is a 28-year-old M who currently lives in [place] alone, has a history of schizoaffective disorder, and was admitted on 01/17/24 21:46 on a 201 voluntary commitment with outpatient [address] for SI with plan and increased psychosis. Chief Complaint "I'm fine". Review of Systems Sleep Information Total Hours of Sleep: 7.5 Sleep Comments: Pt to room after HS medications given. Meal Information Percent Meal Consumed - Breakfast: 50 Percent Meal Consumed - Lunch: 100 Percent Meal Consumed - Dinner: 100 Subjective Subjective Patient was seen & assessed and interval progress reviewed with treatment team nursing and social work. Walking in the halls listening to music but not interactive with peers or staff. Showered last night. Played video game during recreation group today. Reports that he wants to stay out of hospital but came because his [facility] therapist recommended it. We review that was likely due to the nature of his suicidal thoughts and he agrees. We try to discuss what may be different about the hospital environment that he feels safer here versus at his apartment and he's not sure. He agrees that being on a locked unit could be part of it but isn't sure noting "I can see the validity of that". We review things he had been doing and he reports taking his medication, going to appointments and enjoying seeing his mom. Discussed going to sporting events with his dad and that he felt his delusions were less in those environments because he was distracted. Reviewed goal of trying to add more structure to his days which he agrees with. Thinks he could go to [employer] Tues/Thurs. Feels his SI and delusions are less intense today but isn't sure why. Physical Exam Psychiatric Orientation: alert and oriented x 3 Apperance: appropriately dressed and appropriately groomed Eye Contact: + fair eye contact Motor Behavior: no abnormal motor movements Speech: + abnormal rate/rhythm/volume of speech (fairly monotone) Affect: + flat affect Mood: + depressed mood Thought Process: + concrete thought process (brief) Thought Content: + delusions and + persecution Suicidal Thoughts: denies suicidal intent; + reports suicidal thoughts (intermittent) and + reports suicidal plan (none for hospital, outside for traffic or slitting artery) Homicidal Thoughts: denies homicidal thoughts Hallucinations: + visual hallucinations; no auditory hallucinations (he denies, but in past observed responding ) Cognition: recent memory grossly intact, remote memory grossly intact, attention grossly intact and language grossly intact Estimated Intelligence: consistent with education level Insight: + limited insight Judgment: + limited judgement Vital Signs (Past 24 Hours) Last Vital Signs Temp 36.6 C 01/19/24 06:35 Pulse 82 01/19/24 06:35 Resp 16 01/19/24 06:35 BP 115/81 01/19/24 06:35 Pulse Ox 99 01/17/24 22:47 O2 Del Method Room Air 01/17/24 22:47 Results & Data ([facility]) Laboratory Results Laboratory Results - last 24 hr 01/19/24 07:23 Glucose 107 H Estimat Average Glucose Pending Hemoglobin A1c Pending Triglycerides 147 Cholesterol 118 LDL Cholesterol, Calc 49 VLDL Cholesterol, Calc 29 HDL Cholesterol 40 Cholesterol/HDL Ratio 3.0 Clozapine Pending Norclozapine Pending [place] 1.0 Current Inpatient Medications Current Inpatient Medications: Current Inpatient Medications Acetaminophen (Acetaminophen 325 Mg Tab) 650 mg PO Q4H PRN PRN Reason: Headache or Minor Fever Stop: 02/16/24 22:36 Al Hydrox/Mg Hydrox/Simethicone (Aluminum/Magnesium Susp 30 Ml Udc) 30 ml PO Q4H PRN PRN Reason: GI Upset Stop: 02/16/24 22:36 Bismuth Subsalicylate (Bismuth Subsalicylate Liqd 236 Ml) 15 ml PO PRN PRN PRN Reason: Loose Stool Stop: 02/16/24 22:36 Clozapine (Clozapine 25 Mg Tab) 50 mg PO HS VIVIAN; Protocol Stop: 02/17/24 21:59 Last Admin: 01/18/24 20:55 Dose: 50 mg Clozapine (Clozapine 100 Mg Tab) 200 mg PO HS VIVIAN Stop: 02/17/24 21:59 Last Admin: 01/18/24 20:55 Dose: 200 mg Hydroxyzine HCl (Hydroxyzine Hcl 25 Mg Tab) 50 mg PO HSZ PRN PRN Reason: Insomnia Stop: 02/16/24 22:36 Hydroxyzine HCl (Hydroxyzine Hcl 25 Mg Tab) 25 mg PO Q4H PRN PRN Reason: Anxiety Stop: 02/16/24 22:36 [place] Carbonate ([place] Carbonate 300 Mg Tab) 1,200 mg PO HS VIVIAN Stop: 02/17/24 21:59 Last Admin: 01/18/24 20:57 Dose: 1,200 mg [place] Carbonate ([place] Carbonate 300 Mg Tab) 600 mg PO QAM VIVIAN Stop: 02/17/24 10:44 Last Admin: 01/18/24 11:31 Dose: 600 mg Lurasidone HCl (Lurasidone Hcl 20 Mg Tab) 60 mg PO DAILY@1800 VIVIAN Stop: 02/17/24 17:59 Last Admin: 01/18/24 17:49 Dose: 60 mg Magnesium Hydroxide (Magnesium Hydroxide Susp 30 Ml Udc) 30 ml PO DAILY PRN PRN Reason: Constipation Stop: 02/16/24 22:36 Sodium Chloride (Sodium Chloride 0.65% Na Soln 45 Ml ([place])) 1 - 2 sprays NA PRN PRN PRN Reason: Nasal Dryness/Congestion Stop: 02/16/24 22:36 Mental Health & Subst Abuse Tx Therapist Name of Therapist: Cheko England- Femi Project Management Advisor Name of Project Management Advisor: ROMELIA Drake Post Discharge Appointments Primary Care Physician Name Of Family Doctor/PCP: Kody Richardson- Brooke Dunn
[2024-01-19 09:14] LABS: Estimated Average Glucose 100 mg/dl; Hemoglobin A1C 5.1 % (4.5-5.6)
--- NOTE | 2024-01-20 10:04 | Psychiatric Progress Note ---
Date of Service January 20, 2024 Impression / Recommendations Mireille Mcghee presents for increased SI with thoughts of walking into traffic on the highway or slitting his wrists with goal of hitting an artery in the context of increased distress from delusions about what is real, derealization and sense that the government may be trying to have him killed. Diagnostically consistent with exacerbation of schizoaffective disorder. He continues to struggle to function outside of inpatient hospital settings, representing after recent admission last month and following 6 month admission to [facility] from late April - October. He reports adherence with his psychiatric medications so unclear if worsening symptoms are due to lack of efficacy or alternative factors such as loneliness or heightened paranoia from unclear factors. Now on 305 inpatient commitment. MNPR due to psychosis with persecutory delusions and paranoia 01/20/2024: Fewer delusions and less SI and attending lots of groups but still struggles to identify causes of decompensation outside of the inpatient environ ment. Clozapine level still pending. Focusing on exploring ways to add structure to outpatient environment given repeated hospitalizations. Overall, I spent a total of 30 minutes on this case including meeting with the patient, reviewing the chart, nursing report, multidisciplinary team meeting, orders, and documentation. (1) Suicidal thoughts: (2) Schizoaffective disorder, bipolar type: (3) Delusions: Plan 01/20/2024: Continue current medications and tx plan. 01/19/2024: Continue current medications and tx plan. Consider clozapine adjust ment once level comes back. 01/18/2024: The patient was admitted to the [facility] ([facility] mental health unit) on q15 min checks (behavioral with suicide precautions) for safety. The patient will participate in group, recreational, and milieu therapies and will be offered additional individual and family sessions as clinically appropriate. * Continue [place], Clozapine and Latuda * AM labwork to include Li level, clozapine level and fasting lipid panel and glucose Inventory Assets Strengths: supportive family, willing to get treatment Needs: safety and stabilization, medication adjustment, additional coping skills, increased outpatient services Suicide Risk Level Suicide Risk Level: Moderate (q15 min suicide checks) (depression with SI with plan prior to admission and psychosis but feels safe in the hospital, able to safety contract and agrees to let nursing/staff know should they develop plan, intent or feel unable to remain safe.) Suicide Risk Level Comments: Risk Factors Assessment Male: Yes : Yes Do You Have Access To A Gun?: No Mental Health Diagnoses: Yes Previous Attempt: Yes Previous Psychiatric Hospitalization: Yes Protective Factors Assessment Employed: No Supportive Family: Yes Interval History Identifying Information NASEEM MCGEE is a 28-year-old M who currently lives in [place] alone, has a history of schizoaffective disorder, and was admitted on 01/17/24 21:46 on a 201 voluntary commitment with outpatient [address] for SI with plan and increased psychosis. Chief Complaint "Pretty good". Review of Systems Sleep Information Total Hours of Sleep: 7.30 Sleep Comments: Pt to room after HS medications given. Meal Information Percent Meal Consumed - Breakfast: 100 Percent Meal Consumed - Lunch: 100 Percent Meal Consumed - Dinner: 100 Subjective Subjective Patient was seen & assessed and interval progress reviewed with treatment team nursing and social work. Attended almost all of the groups yesterday. Today again attending groups and walking in the [place] with music. Reports stable mood. Continues to have limited insight into ways to add structure to his daily routine or possible stressors/variables that contribute to his delusions or SI. Denies any medication side effects. Physical Exam Psychiatric Orientation: alert and oriented x 3 Apperance: appropriately dressed and appropriately groomed Eye Contact: + fair eye contact Motor Behavior: no abnormal motor movements Speech: + abnormal rate/rhythm/volume of speech (fairly monotone) Affect: + flat affect Mood: + anxious mood; no depressed mood Thought Process: + concrete thought process (brief) Thought Content: + delusions and + persecution Suicidal Thoughts: denies suicidal intent; + reports suicidal thoughts (intermittent) and + reports suicidal plan (none for hospital, outside for traff ic or slitting artery) Homicidal Thoughts: denies homicidal thoughts Hallucinations: + visual hallucinations; no auditory hallucinations (he denies, but in past observed responding ) Cognition: recent memory grossly intact, remote memory grossly intact, attention grossly intact and language grossly intact Estimated Intelligence: consistent with education level Insight: + limited insight Judgment: + limited judgement Vital Signs (Past 24 Hours) Last Vital Signs Temp 36.6 C 01/20/24 06:30 Pulse 82 01/19/24 06:35 Resp 16 01/20/24 06:30 BP 123/74 01/20/24 06:32 Pulse Ox 95 01/20/24 06:30 O2 Del Method Room Air 01/20/24 06:30 Results & Data ([facility]) Current Inpatient Medications Current Inpatient Medications: Current Inpatient Medications Acetaminophen (Acetaminophen 325 Mg Tab) 650 mg PO Q4H PRN PRN Reason: Headache or Minor Fever Stop: 02/16/24 22:36 Al Hydrox/Mg Hydrox/Simethicone (Aluminum/Magnesium Susp 30 Ml Udc) 30 ml PO Q4H PRN PRN Reason: GI Upset Stop: 02/16/24 22:36 Bismuth Subsalicylate (Bismuth Subsalicylate Liqd 236 Ml) 15 ml PO PRN PRN PRN Reason: Loose Stool Stop: 02/16/24 22:36 Clozapine (Clozapine 25 Mg Tab) 50 mg PO HS [facility]; Protocol Stop: 02/17/24 21:59 Last Admin: 01/19/24 20:55 Dose: 50 mg Clozapine (Clozapine 100 Mg Tab) 200 mg PO HS [facility] Stop: 02/17/24 21:59 Last Admin: 01/19/24 20:55 Dose: 200 mg Hydroxyzine HCl (Hydroxyzine Hcl 25 Mg Tab) 50 mg PO HSZ PRN PRN Reason: Insomnia Stop: 02/16/24 22:36 Hydroxyzine HCl (Hydroxyzine Hcl 25 Mg Tab) 25 mg PO Q4H PRN PRN Reason: Anxiety Stop: 02/16/24 22:36 [place] Carbonate ([place] Carbonate 300 Mg Tab) 1,200 mg PO HS [facility] Stop: 02/17/24 21:59 Last Admin: 01/19/24 20:55 Dose: 1,200 mg [place] Carbonate ([place] Carbonate 300 Mg Tab) 600 mg PO QAM [facility] Stop: 02/17/24 10:44 Last Admin: 01/20/24 08:57 Dose: 600 mg Lurasidone HCl (Lurasidone Hcl 20 Mg Tab) 60 mg PO DAILY@1800 [facility] Stop: 02/17/24 17:59 Last Admin: 01/19/24 17:24 Dose: 60 mg Magnesium Hydroxide (Magnesium Hydroxide Susp 30 Ml Udc) 30 ml PO DAILY PRN PRN Reason: Constipation Stop: 02/16/24 22:36 Sodium Chloride (Sodium Chloride 0.65% Na Soln 45 Ml ([place])) 1 - 2 sprays NA PRN PRN PRN Reason: Nasal Dryness/Congestion Stop: 02/16/24 22:36 Mental Health & Subst Abuse Tx Therapist Name of Therapist: Cheko England- Femi Table Games Shift Manager Name of Table Games Shift Manager: ROMELIA Drake Post Discharge Appointments Primary Care Physician Name Of Family Doctor/PCP: Kody Richardson- Brooke Dunn
--- NOTE | 2024-01-21 09:09 | Psychiatric Progress Note ---
Date of Service January 21, 2024 Impression / Recommendations Mireille Mcghee presents for increased SI with thoughts of walking into traffic on the highway or slitting his wrists with goal of hitting an artery in the context of increased distress from delusions about what is real, derealization and sense that the government may be trying to have him killed. Diagnostically consistent with exacerbation of schizoaffective disorder. He continues to struggle to function outside of inpatient hospital settings, representing after recent admission last month and following 6 month admission to [facility] from late April - October. He reports adherence with his psychiatric medications so unclear if worsening symptoms are due to lack of efficacy or alternative factors such as loneliness or heightened paranoia from unclear factors. Now on 305 inpatient commitment. MNPR due to psychosis with persecutory delusions and paranoia 01/21/2024: Low BP this morning and even though asymptomatic felt to be unsafe to titrate clozapine further given this and currently his symptoms appear fairly well controlled. This is the best he's done ever with group participation and has been out of his room every day so far. Concern remains around barriers in outpatient setting that cause him to quickly return to the hospital or develop re-emergence of delusions and subsequently SI. Focusing on ways to add structure and socialization to his day to help with reality-testing and reasons for living. Overall, I spent a total of 28 minutes on this case including meeting with the patient, reviewing the chart, nursing report, multidisciplinary team meeting, orders, and documentation. (1) Suicidal thoughts: (2) Schizoaffective disorder, bipolar type: (3) Delusions: Plan 01/21/2024: Continue current medications and tx plan. 01/20/2024: Continue current medications and tx plan. 01/19/2024: Continue current medications and tx plan. Consider clozapine adjustment once level comes back. 01/18/2024: The patient was admitted to the [facility] ([facility] inpatient mental health unit) on q15 min checks (behavioral with suicide precautions) for safety. The patient will participate in group, recreational, and milieu therapies and will be offered additional individual and family sessions as clinically appropriate. * Continue [place], Clozapine and Latuda * AM labwork to include Li level, clozapine level and fasting lipid panel and glucose Inventory Assets Strengths: supportive family, willing to get treatment Needs: safety and stabilization, medication adjustment, additional coping skills, increased outpatient services Suicide Risk Level Suicide Risk Level: Moderate (q15 min suicide checks) (depression with SI with plan prior to admission and psychosis but feels safe in the hospital, able to safety contract and agrees to let nursing/staff know should they develop plan, intent or feel unable to remain safe.) Suicide Risk Level Comments: Risk Factors Assessment Male: Yes : Yes Do You Have Access To A Gun?: No Mental Health Diagnoses: Yes Previous Attempt: Yes Previous Psychiatric Hospitalization: Yes Protective Factors Assessment Employed: No Supportive Family: Yes Interval History Identifying Information NASEEM MCGEE is a 28-year-old M who currently lives in [place] alone, has a history of schizoaffective disorder, and was admitted on 01/17/24 21:46 on a 201 voluntary commitment with outpatient [address] for SI with plan and increased psychosis. Chief Complaint "Pretty good". Review of Systems Sleep Information Total Hours of Sleep: 7.5 Sleep Comments: Pt to room after HS medications given. Meal Information Percent Meal Consumed - Breakfast: 75 Percent Meal Consumed - Lunch: 100 Percent Meal Consumed - Dinner: 100 Subjective Subjective Patient was seen & assessed and interval progress reviewed with treatment team nursing and social work. Attending groups. Walking in the halls and observed responding to some internal stimuli last evening but not excessively. This morning had low BP but he reports no symptoms related to this and got up early and had breakfast and attended group. He's pleased with going to groups and denies current SI or delusions. However, he still feels he wouldn't be ready for discharge but can't describe possible stressors or barriers or reasons he feels not ready for discharge yet. Physical Exam Psychiatric Orientation: alert and oriented x 3 Apperance: appropriately dressed and appropriately groomed Eye Contact: + fair eye contact Motor Behavior: no abnormal motor movements Speech: + abnormal rate/rhythm/volume of speech (fairly monotone) Affect: + flat affect Mood: no depressed mood and no anxious mood Thought Process: + concrete thought process (brief) Thought Content: + delusions and + persecution Suicidal Thoughts: denies suicidal intent; + reports suicidal thoughts (intermit tent, denies today) and + reports suicidal plan (none for hospital, outside for traffic or slitting artery) Homicidal Thoughts: denies homicidal thoughts Hallucinations: + visual hallucinations; no auditory hallucinations (he denies, but observed responding at times) Cognition: recent memory grossly intact, remote memory grossly intact, attention grossly intact and language grossly intact Estimated Intelligence: consistent with education level Insight: + limited insight Judgment: + limited judgement Vital Signs (Past 24 Hours) Last Vital Signs Temp 36.4 C 01/21/24 06:32 Pulse 78 01/21/24 06:34 Resp 18 01/21/24 06:32 BP 85/52 L 01/21/24 06:34 Pulse Ox 98 01/21/24 06:32 O2 Del Method Room Air 01/21/24 06:32 Results & Data ([facility]) Current Inpatient Medications Current Inpatient Medications: Current Inpatient Medications Acetaminophen (Acetaminophen 325 Mg Tab) 650 mg PO Q4H PRN PRN Reason: Headache or Minor Fever Stop: 02/16/24 22:36 Al Hydrox/Mg Hydrox/Simethicone (Aluminum/Magnesium Susp 30 Ml Udc) 30 ml PO Q4H PRN PRN Reason: GI Upset Stop: 02/16/24 22:36 Bismuth Subsalicylate (Bismuth Subsalicylate Liqd 236 Ml) 15 ml PO PRN PRN PRN Reason: Loose Stool Stop: 02/16/24 22:36 Clozapine (Clozapine 25 Mg Tab) 50 mg PO HS [facility]; Protocol Stop: 02/17/24 21:59 Last Admin: 01/20/24 21:08 Dose: 50 mg Clozapine (Clozapine 100 Mg Tab) 200 mg PO HS [facility] Stop: 02/17/24 21:59 Last Admin: 01/20/24 21:07 Dose: 200 mg Hydroxyzine HCl (Hydroxyzine Hcl 25 Mg Tab) 50 mg PO HSZ PRN PRN Reason: Insomnia Stop: 02/16/24 22:36 Hydroxyzine HCl (Hydroxyzine Hcl 25 Mg Tab) 25 mg PO Q4H PRN PRN Reason: Anxiety Stop: 02/16/24 22:36 Ursa Carbonate (Ursa Carbonate 300 Mg Tab) 1,200 mg PO HS [facility] Stop: 02/17/24 21:59 Last Admin: 01/20/24 21:07 Dose: 1,200 mg Ursa Carbonate (Ursa Carbonate 300 Mg Tab) 600 mg PO QAM [facility] Stop: 02/17/24 10:44 Last Admin: 01/21/24 08:44 Dose: 600 mg Lurasidone HCl (Lurasidone Hcl 20 Mg Tab) 60 mg PO DAILY@1800 [facility] Stop: 02/17/24 17:59 Last Admin: 01/20/24 17:52 Dose: 60 mg Magnesium Hydroxide (Magnesium Hydroxide Susp 30 Ml Udc) 30 ml PO DAILY PRN PRN Reason: Constipation Stop: 02/16/24 22:36 Sodium Chloride (Sodium Chloride 0.65% Na Soln 45 Ml ([place])) 1 - 2 sprays NA PRN PRN PRN Reason: Nasal Dryness/Congestion Stop: 02/16/24 22:36 Mental Health & Subst Abuse Tx Therapist Name of Therapist: Cheko England- Femi Portable Pinch Riveter Name of Portable Pinch Riveter: ROMELIA Drake Post Discharge Appointments Primary Care Physician Name Of Family Doctor/PCP: Kody [facility]- Brooke Dunn
--- NOTE | 2024-01-22 09:01 | Psychiatric Progress Note ---
Date of Service January 22, 2024 Impression / Recommendations Mireille Mcghee presents for increased SI with thoughts of walking into traffic on the highway or slitting his wrists with goal of hitting an artery in the context of increased distress from delusions about what is real, derealization and sense that the government may be trying to have him killed. Diagnostically consistent with exacerbation of schizoaffective disorder. He continues to struggle to function outside of inpatient hospital settings, representing after recent admission last month and following 6 month admission to [facility] from late April - October. He reports adherence with his psychiatric medications so unclear if worsening symptoms are due to lack of efficacy or alternative factors such as loneliness or heightened paranoia from unclear factors. Now on 305 inpatient commitment. MNPR due to psychosis with persecutory delusions and paranoia 01/22/2024: BP slightly improved today. Unclear if fully adherent with clozapine prior to admission but since admission has been taking all medications and mood and psychosis improving significantly. Continues to attend all groups. Focusing on ways to add structure and socialization to his day to help with reality- testing and reasons for living. Overall, I spent a total of 25 minutes on this case including meeting with the patient, reviewing the chart, nursing report, multidisciplinary team meeting, orders, and documentation. (1) Suicidal thoughts: (2) Schizoaffective disorder, bipolar type: (3) Delusions: Plan 01/22/2024: Continue current medications and tx plan. 01/21/2024: Continue current medications and tx plan. 01/20/2024: Continue current medications and tx plan. 01/19/2024: Continue current medications and tx plan. Consider clozapine adjustment once level comes back. 01/18/2024: The patient was admitted to the [facility] ([facility] mental health unit) on q15 min checks (behavioral with suicide precautions) for safety. The patient will participate in group, recreational, and milieu therapies and will be offered additional individual and family sessions as clinically appropriate. * Continue [place], Clozapine and Latuda * AM labwork to include Li level, clozapine level and fasting lipid panel and glucose Inventory Assets Strengths: supportive family, willing to get treatment Needs: safety and stabilization, medication adjustment, additional coping skills, increased outpatient services Suicide Risk Level Suicide Risk Level: Moderate (q15 min suicide checks) (depression with SI with plan prior to admission and psychosis but feels safe in the hospital, able to safety contract and agrees to let nursing/staff know should they develop plan, intent or feel unable to remain safe.) Suicide Risk Level Comments: Risk Factors Assessment Male: Yes : Yes Do You Have Access To A Gun?: No Mental Health Diagnoses: Yes Previous Attempt: Yes Previous Psychiatric Hospitalization: Yes Protective Factors Assessment Employed: No Supportive Family: Yes Interval History Identifying Information NASEEM MCGEE is a 28-year-old M who currently lives in [place] alone, has a history of schizoaffective disorder, and was admitted on 01/17/24 21:46 on a 201 voluntary commitment with outpatient [address] for SI with plan and increased psychosis. Chief Complaint "Pretty good". Review of Systems Sleep Information Total Hours of Sleep: 7.25 Sleep Comments: Meal Information Percent Meal Consumed - Breakfast: 75 Percent Meal Consumed - Lunch: 100 Percent Meal Consumed - Dinner: 100 Subjective Subjective Patient was seen & assessed and interval progress reviewed with treatment team nursing and social work. He continues to attend groups. Not seen responding to any internal stimuli yesterday. Reports he has been adherent with medications prior to admission due to his mom texting him to remind him to take his medications. He agrees that [facility] three times a week could be a good idea as agrees that being alone all the time can make it more difficult to reality test. He feels when his SI and delusions come on it is impulsive and sometimes his coping skills work but sometimes they don't. Physical Exam Psychiatric Orientation: alert and oriented x 3 Apperance: appropriately dressed and appropriately groomed Eye Contact: + fair eye contact Motor Behavior: no abnormal motor movements Speech: + abnormal rate/rhythm/volume of speech (fairly monotone) Affect: + flat affect Mood: no depressed mood and no anxious mood Thought Process: + concrete thought process (brief) Thought Content: + delusions and + persecution Suicidal Thoughts: denies suicidal intent; + reports suicidal thoughts (intermittent, denies today) and + reports suicidal plan (none for hospital, outside for traffic or slitting artery) Homicidal Thoughts: denies homicidal thoughts Hallucinations: no auditory hallucinations (he denies, but observed responding at times) and no visual hallucinations Cognition: recent memory grossly intact, remote memory grossly intact, attention grossly intact and language grossly intact Estimated Intelligence: consistent with education level Insight: + limited insight Judgment: + limited judgement Vital Signs (Past 24 Hours) Last Vital Signs Temp 36.5 C 01/22/24 06:50 Pulse 80 01/22/24 06:50 Resp 16 01/22/24 06:50 BP 108/68 01/22/24 06:50 Pulse Ox 98 01/21/24 06:32 O2 Del Method Room Air 01/21/24 06:32 Results & Data ([facility]) Current Inpatient Medications Current Inpatient Medications: Current Inpatient Medications Acetaminophen (Acetaminophen 325 Mg Tab) 650 mg PO Q4H PRN PRN Reason: Headache or Minor Fever Stop: 02/16/24 22:36 Al Hydrox/Mg Hydrox/Simethicone (Aluminum/Magnesium Susp 30 Ml Udc) 30 ml PO Q4H PRN PRN Reason: GI Upset Stop: 02/16/24 22:36 Bismuth Subsalicylate (Bismuth Subsalicylate Liqd 236 Ml) 15 ml PO PRN PRN PRN Reason: Loose Stool Stop: 02/16/24 22:36 Clozapine (Clozapine 25 Mg Tab) 50 mg PO HS [facility]; Protocol Stop: 02/17/24 21:59 Last Admin: 01/21/24 20:46 Dose: 50 mg Clozapine (Clozapine 100 Mg Tab) 200 mg PO HS [facility] Stop: 02/17/24 21:59 Last Admin: 01/21/24 20:47 Dose: 200 mg Hydroxyzine HCl (Hydroxyzine Hcl 25 Mg Tab) 50 mg PO HSZ PRN PRN Reason: Insomnia Stop: 02/16/24 22:36 Hydroxyzine HCl (Hydroxyzine Hcl 25 Mg Tab) 25 mg PO Q4H PRN PRN Reason: Anxiety Stop: 02/16/24 22:36 [place] Carbonate (Veter[place] Carbonate 300 Mg Tab) 1,200 mg PO HS [facility] Stop: 02/17/24 21:59 Last Admin: 01/21/24 20:48 Dose: 1,200 mg [place] Carbonate (Veteran Carbonate 300 Mg Tab) 600 mg PO QAM [facility] Stop: 02/17/24 10:44 Last Admin: 01/22/24 08:26 Dose: 600 mg Lurasidone HCl (Lurasidone Hcl 20 Mg Tab) 60 mg PO DAILY@1800 [facility] Stop: 02/17/24 17:59 Last Admin: 01/21/24 17:46 Dose: 60 mg Magnesium Hydroxide (Magnesium Hydroxide Susp 30 Ml Udc) 30 ml PO DAILY PRN PRN Reason: Constipation Stop: 02/16/24 22:36 Sodium Chloride (Sodium Chloride 0.65% Na Soln 45 Ml ([place])) 1 - 2 sprays NA PRN PRN PRN Reason: Nasal Dryness/Congestion Stop: 02/16/24 22:36 Mental Health & Subst Abuse Tx Therapist Name of Therapist: Cheko England- Femi Technical Illustrator Name of Technical Illustrator: ROMELIA Drake Post Discharge Appointments Primary Care Physician Name Of Family Doctor/PCP: Kody [facility]- Brooke Dunn
--- NOTE | 2024-01-23 09:00 | Psychiatric Progress Note ---
Date of Service January 23, 2024 Impression / Recommendations Mireille Mcghee presents for increased SI with thoughts of walking into traffic on the highway or slitting his wrists with goal of hitting an artery in the context of increased distress from delusions about what is real, derealization and sense that the government may be trying to have him killed. Diagnostically consistent with exacerbation of schizoaffective disorder. He continues to struggle to function outside of inpatient hospital settings, representing after recent admission last month and following 6 month admission to [facility] from late April - October. He reports adherence with his psychiatric medications so unclear if worsening symptoms are due to lack of efficacy or alternative factors such as loneliness or heightened paranoia from unclear factors. Now on 305 inpatient commitment. MNPR due to history of psychosis with persecutory delusions and difficulty tolerating close quarters with peers due to paranoia 01/23/2024: Ongoing stability in terms of improvement in psychosis, attending to hygiene and basic needs, engaging well in groups and more spontaneous conversation with staff. Focusing on adding structure and opportunities for interpersonal connection in outpatient setting to increase reality-testing. Overall, I spent a total of 25 minutes on this case including meeting with the patient, reviewing the chart, nursing report, multidisciplinary team meeting, orders, and documentation. (1) Suicidal thoughts: (2) Schizoaffective disorder, bipolar type: (3) Delusions: Plan 01/23/2024: Continue current medications and tx plan. CBC with ANC tomorrow. 01/22/2024: Continue current medications and tx plan. 01/21/2024: Continue current medications and tx plan. 01/20/2024: Continue current medications and tx plan. 01/19/2024: Continue current medications and tx plan. Consider clozapine adjustment once level comes back. 01/18/2024: The patient was admitted to the [facility] ([facility] mental health unit) on q15 min checks (behavioral with suicide precautions) for safety. The patient will participate in group, recreational, and milieu therapies and will be offered additional individual and family sessions as clinically appropriate. * Continue [place], Clozapine and Latuda * AM labwork to include Li level, clozapine level and fasting lipid panel and glucose Inventory Assets Strengths: supportive family, willing to get treatment Needs: safety and stabilization, medication adjustment, additional coping skills, increased outpatient services Suicide Risk Level Suicide Risk Level: Moderate (q15 min suicide checks) (depression with SI with plan prior to admission and psychosis but no overt psychosis now, mood improving, feels safe in the hospital, able to safety contract and agrees to let nursing/staff know should they develop plan, intent or feel unable to remain safe.) Suicide Risk Level Comments: Risk Factors Assessment Male: Yes : Yes Do You Have Access To A Gun?: No Mental Health Diagnoses: Yes Previous Attempt: Yes Previous Psychiatric Hospitalization: Yes Protective Factors Assessment Employed: No Supportive Family: Yes Interval History Identifying Information NASEEM MCGEE is a 28-year-old M who currently lives in [place] alone, has a history of schizoaffective disorder, and was admitted on 01/17/24 21:46 on a 201 voluntary commitment with outpatient [address] for SI with plan and increased psychosis. Chief Complaint "A lot better". Review of Systems Sleep Information Total Hours of Sleep: 6.30 Meal Information Percent Meal Consumed - Breakfast: 100 Percent Meal Consumed - Lunch: 100 Percent Meal Consumed - Dinner: 75 Subjective Subjective Patient was seen & assessed and interval progress reviewed with treatment team nursing and social work. Showered without prompting last night. More spontaneous and interactive and appropriate in groups with a game. He denies any medication side effects or significant mood symptoms or psychosis today. Discussion focused on ways to increase structure and building interpersonal connections in outpatient setting. Physical Exam Psychiatric Orientation: alert and oriented x 3 Apperance: appropriately dressed and appropriately groomed Eye Contact: + fair eye contact Motor Behavior: no abnormal motor movements Speech: normal rate/rhythm/volume of speech Affect: + constricted affect Mood: no depressed mood and no anxious mood Thought Process: clear/coherent thought process Thought Content: reality based without delusions Suicidal Thoughts: denies suicidal plan and denies suicidal intent; + reports suicidal thoughts (intermittent, denies today) Homicidal Thoughts: denies homicidal thoughts Hallucinations: no auditory hallucinations (he denies, but observed responding at times) and no visual hallucinations Cognition: recent memory grossly intact, remote memory grossly intact, attention grossly intact and language grossly intact Estimated Intelligence: consistent with education level Insight: + limited insight Judgment: + limited judgement Vital Signs (Past 24 Hours) Last Vital Signs Temp 36.5 C 01/23/24 06:40 Pulse 91 H 01/23/24 06:41 Resp 16 01/23/24 06:40 BP 104/67 01/23/24 06:41 Pulse Ox 98 01/21/24 06:32 O2 Del Method Room Air 01/21/24 06:32 Results & Data ([facility]) Current Inpatient Medications Current Inpatient Medications: Current Inpatient Medications Acetaminophen (Acetaminophen 325 Mg Tab) 650 mg PO Q4H PRN PRN Reason: Headache or Minor Fever Stop: 02/16/24 22:36 Al Hydrox/Mg Hydrox/Simethicone (Aluminum/Magnesium Susp 30 Ml Udc) 30 ml PO Q4H PRN PRN Reason: GI Upset Stop: 02/16/24 22:36 Bismuth Subsalicylate (Bismuth Subsalicylate Liqd 236 Ml) 15 ml PO PRN PRN PRN Reason: Loose Stool Stop: 02/16/24 22:36 Clozapine (Clozapine 25 Mg Tab) 50 mg PO HS VIVIAN; Protocol Stop: 02/17/24 21:59 Last Admin: 01/22/24 21:29 Dose: 50 mg Clozapine (Clozapine 100 Mg Tab) 200 mg PO HS [facility] Stop: 02/17/24 21:59 Last Admin: 01/22/24 21:29 Dose: 200 mg Hydroxyzine HCl (Hydroxyzine Hcl 25 Mg Tab) 50 mg PO HSZ PRN PRN Reason: Insomnia Stop: 02/16/24 22:36 Hydroxyzine HCl (Hydroxyzine Hcl 25 Mg Tab) 25 mg PO Q4H PRN PRN Reason: Anxiety Stop: 02/16/24 22:36 Cal[place]a Carbonate ([place] Carbonate 300 Mg Tab) 1,200 mg PO HS VIVIAN Stop: 02/17/24 21:59 Last Admin: 01/22/24 21:27 Dose: 1,200 mg [place] Carbonate ([place] Carbonate 300 Mg Tab) 600 mg PO QAM VIVIAN Stop: 02/17/24 10:44 Last Admin: 01/22/24 08:26 Dose: 600 mg Lurasidone HCl (Lurasidone Hcl 20 Mg Tab) 60 mg PO DAILY@1800 [facility] Stop: 02/17/24 17:59 Last Admin: 01/22/24 18:30 Dose: 60 mg Magnesium Hydroxide (Magnesium Hydroxide Susp 30 Ml Udc) 30 ml PO DAILY PRN PRN Reason: Constipation Stop: 02/16/24 22:36 Sodium Chloride (Sodium Chloride 0.65% Na Soln 45 Ml ([place])) 1 - 2 sprays NA PRN PRN PRN Reason: Nasal Dryness/Congestion Stop: 02/16/24 22:36 Mental Health & Subst Abuse Tx Therapist Name of Therapist: Cheko England- Femi Crew Foreman Name of Crew Foreman: ROMELIA Drake Post Discharge Appointments Primary Care Physician Name Of Family Doctor/PCP: Kody [facility]- Brooke Dunn
[2024-01-24 07:33] LABS: Clozapine 222 mcg/L; Norclozapine 115 mcg/L (25-400)
[2024-01-24 08:05] LABS: Eosinophils # (auto) 0.25 K/uL (0.00-0.50); Eosinophils % (auto) 2.4 %; Hematocrit (blood only) 47.9 % (42.0-52.0); Hemoglobin 15.3 g/dl (14.0-18.0); Immature Granulocytes # (auto) 0.09 K/uL (0.01-0.20); Immature Granulocytes % (auto) 0.9 %; Lymphocytes # (auto) 3.16 K/uL (1.20-3.40); Lymphocytes % (auto) 30.5 %; Mean Corpuscular Hemoglobin 26.7 pg (25.0-34.0); Mean Corpuscular Hgb Conc 31.9 g/dL (32.0-36.0); Mean Corpuscular Volume 83.7 fL (80.0-100.0); Mean Platelet Volume 9.8 fL (9.4-12.4); Monocytes % (auto) 9.6 %; Neutrophils # (auto) 5.77 K/uL (1.40-6.50); Neutrophils % (auto) 55.6 %; Platelet Count 317 K/uL (130-400); RDW Coefficient of Variation 14.2 % (11.5-14.5); Red Blood Count 5.72 M/uL (4.70-6.10); White Blood Count 10.37 K/ul (4.8-10.8)
--- NOTE | 2024-01-24 09:09 | Psychiatric Progress Note ---
Date of Service January 24, 2024 Impression / Recommendations Mireille Mcghee presents for increased SI with thoughts of walking into traffic on the highway or slitting his wrists with goal of hitting an artery in the context of increased distress from delusions about what is real, derealization and sense that the government may be trying to have him killed. Diagnostically consistent with exacerbation of schizoaffective disorder. He continues to struggle to function outside of inpatient hospital settings, representing after recent admission last month and following 6 month admission to [facility] from late April - October. He reports adherence with his psychiatric medications so unclear if worsening symptoms are due to lack of efficacy or alternative factors such as loneliness or heightened paranoia from unclear factors. Now on 305 inpatient commitment. MNPR due to history of psychosis with persecutory delusions and difficulty tolerating close quarters with peers 01/24/2024: Continues to do well with consistent denial of SI and no evidence for acute psychosis. Attending all groups and engaging well. Clozapine level re- assuring for adherence prior to admission. ANC stable and reassuring for ongoing clozapine use. Overall, I spent a total of 35 minutes on this case including meeting with the patient, reviewing the chart, nursing report, multidisciplinary team meeting, orders, and documentation. (1) Suicidal thoughts: (2) Schizoaffective disorder, bipolar type: (3) Delusions: Plan 01/24/2024: Continue current medications and tx plan. needs support meeting. 01/23/2024: Continue current medications and tx plan. CBC with ANC tomorrow. 01/22/2024: Continue current medications and tx plan. 01/21/2024: Continue current medications and tx plan. 01/20/2024: Continue current medications and tx plan. 01/19/2024: Continue current medications and tx plan. Consider clozapine adjustment once level comes back. 01/18/2024: The patient was admitted to the [facility] ([facility] inpatient mental health unit) on q15 min checks (behavioral with suicide precautions) for safety. The patient will participate in group, recreational, and milieu therapies and will be offered additional individual and family sessions as clinically appropriate. * Continue [place], Clozapine and Latuda * AM labwork to include Li level, clozapine level and fasting lipid panel and glucose Inventory Assets Strengths: supportive family, willing to get treatment Needs: safety and stabilization, medication adjustment, additional coping skills, increased outpatient services Suicide Risk Level Suicide Risk Level: Moderate (q15 min suicide checks) (depression with SI with plan prior to admission and psychosis but no overt psychosis now, mood improving, feels safe in the hospital, able to safety contract and agrees to let nursing/staff know should they develop plan, intent or feel unable to remain safe.) Suicide Risk Level Comments: Risk Factors Assessment Male: Yes : Yes Do You Have Access To A Gun?: No Mental Health Diagnoses: Yes Previous Attempt: Yes Previous Psychiatric Hospitalization: Yes Protective Factors Assessment Employed: No Supportive Family: Yes Interval History Identifying Information NASEEM MCGEE is a 28-year-old M who currently lives in [place] alone, has a history of schizoaffective disorder, and was admitted on 01/17/24 21:46 on a 201 voluntary commitment with outpatient [address] for SI with plan and increased psychosis. Chief Complaint "Pretty good". Review of Systems Sleep Information Total Hours of Sleep: 7.25 Meal Information Percent Meal Consumed - Breakfast: 50 Percent Meal Consumed - Lunch: 100 Percent Meal Consumed - Dinner: 100 Subjective Subjective Patient was seen & assessed and interval progress reviewed with treatment team nursing and social work. Attending groups. Engaging spontaneously with peers and staff. Reports his mood is "pretty good". Motivated for discharge. Denies any SI. Denies any medication side effects. Physical Exam Psychiatric Orientation: alert and oriented x 3 Apperance: appropriately dressed and appropriately groomed Eye Contact: + fair eye contact Motor Behavior: no abnormal motor movements Speech: normal rate/rhythm/volume of speech Affect: + constricted affect (but with some smiles) Mood: no depressed mood and no anxious mood Thought Process: clear/coherent thought process Thought Content: reality based without delusions Suicidal Thoughts: denies suicidal thoughts, denies suicidal plan and denies suicidal intent Homicidal Thoughts: denies homicidal thoughts Hallucinations: no auditory hallucinations and no visual hallucinations Cognition: recent memory grossly intact, remote memory grossly intact, attention grossly intact and language grossly intact Estimated Intelligence: consistent with education level Insight: + fair insight Judgment: + fair judgement Vital Signs (Past 24 Hours) Last Vital Signs Temp 36.7 C 01/24/24 06:28 Pulse 82 01/24/24 06:28 Resp 16 01/24/24 06:28 BP 112/67 01/24/24 06:28 Pulse Ox 98 01/21/24 06:32 O2 Del Method Room Air 01/21/24 06:32 Results & Data ([facility]) Laboratory Results Laboratory Results - last 24 hr 01/19/24 01/24/24 07:23 07:45 WBC 10.37 RBC 5.72 Hgb 15.3 Hct 47.9 MCV 83.7 MCH 26.7 MCHC 31.9 L RDW Std Deviation 43.0 RDW Coeff of [place] 14.2 Plt Count 317 MPV 9.8 Immature Gran % (Auto) 0.9 Neut % (Auto) 55.6 Lymph % (Auto) 30.5 [place] % (Auto) 9.6 Eos % (Auto) 2.4 Baso % (Auto) 1.0 Neut # (Auto) 5.77 Lymph # (Auto) 3.16 [place] # (Auto) 1.00 H Eos # (Auto) 0.25 Baso # (Auto) 0.10 Immature Gran # (Auto) 0.09 Clozapine 222 Norclozapine 115 Current Inpatient Medications Current Inpatient Medications: Current Inpatient Medications Acetaminophen (Acetaminophen 325 Mg Tab) 650 mg PO Q4H PRN PRN Reason: Headache or Minor Fever Stop: 02/16/24 22:36 Al Hydrox/Mg Hydrox/Simethicone (Aluminum/Magnesium Susp 30 Ml Udc) 30 ml PO Q4H PRN PRN Reason: GI Upset Stop: 02/16/24 22:36 Bismuth Subsalicylate (Bismuth Subsalicylate Liqd 236 Ml) 15 ml PO PRN PRN PRN Reason: Loose Stool Stop: 02/16/24 22:36 Clozapine (Clozapine 25 Mg Tab) 50 mg PO HS VIVIAN; Protocol Stop: 02/17/24 21:59 Last Admin: 01/23/24 21:28 Dose: 50 mg Clozapine (Clozapine 100 Mg Tab) 200 mg PO HS VIVIAN Stop: 02/17/24 21:59 Last Admin: 01/23/24 21:27 Dose: 200 mg Hydroxyzine HCl (Hydroxyzine Hcl 25 Mg Tab) 50 mg PO HSZ PRN PRN Reason: Insomnia Stop: 02/16/24 22:36 Hydroxyzine HCl (Hydroxyzine Hcl 25 Mg Tab) 25 mg PO Q4H PRN PRN Reason: Anxiety Stop: 02/16/24 22:36 [place] Carbonate ([place] Carbonate 300 Mg Tab) 1,200 mg PO HS VIVIAN Stop: 02/17/24 21:59 Last Admin: 01/23/24 21:28 Dose: 1,200 mg [place] Carbonate ([place] Carbonate 300 Mg Tab) 600 mg PO QAM VIVIAN Stop: 02/17/24 10:44 Last Admin: 01/24/24 08:55 Dose: 600 mg Lurasidone HCl (Lurasidone Hcl 20 Mg Tab) 60 mg PO DAILY@1800 VIVIAN Stop: 02/17/24 17:59 Last Admin: 01/23/24 18:38 Dose: 60 mg Magnesium Hydroxide (Magnesium Hydroxide Susp 30 Ml Udc) 30 ml PO DAILY PRN PRN Reason: Constipation Stop: 02/16/24 22:36 Sodium Chloride (Sodium Chloride 0.65% Na Soln 45 Ml ([place])) 1 - 2 sprays NA PRN PRN PRN Reason: Nasal Dryness/Congestion Stop: 02/16/24 22:36 Mental Health & Subst Abuse Tx Psychiatrist Name of Psychiatrist: KODY Rogers Psychiatrist's Date Of Appointment With Psychiatric Provider: 02/05/24Monday Time of Appointment with Psychiatrist: 3:15 Psychiatric Appointment Comment: Please arrive 15 minutes early (3:00pm) Therapist Name of Therapist: Cheko Kahn Gin Feeder Name of Gin Feeder: ROMELIA Drake Post Discharge Appointments Primary Care Physician Name Of Family Doctor/PCP: Kody [facility]
--- NOTE | 2024-01-25 09:14 | Discharge Summary ---
Date of Service January 25, 2024 History of Present Illness Taz presents for increased SI with thoughts of walking into traffic on the highway or slitting his wrists with goal of hitting an artery in the context of increased distress from delusions about what is real and sense that the government may be trying to have him killed. He was previously on the [facility] from 03/14/2023 - 05/05/2023 and then he was at [facility] for 6 months from April - October 2023 and then re-presented shortly after discharge to [facility] from 12/02/2023 - 12/18/2023. During his most recent admission his clozapine was adjusted and he was restarted on lithium and latuda. He reports engaging in activities such as walking, listening to music, and using coping skills and isn't sure why he started to develop SI and increased delusions and "paranoia". States he was attending [employer] but stopped due to experiencing dizziness and hallucinations on the days he was planning to attend. States he has been continuing to take his medications daily and his mother comes by every day to remind him to take them. States he has been having difficulty distinguishing between reality and delusions, with thoughts of government conspiracies and feeling like someone is out to get him. He denies any auditory hallucinations but reports visual hallucinations of nuclear explosions and armies and "flashes". These feelings and his SI have decreased since being in the hospital but he isn't sure why. He reports experiencing side effects such as dizziness and hallucinations from Clozapine and wonders about swapping it for other medications, but is open to increasing the dose if needed. He has been taking [place] and Latuda without issues. Denies any recent self-harm or other new symptoms. Physical Exam Vital Signs (Past 24 Hours) Last Vital Signs Temp 36.8 C 01/25/24 06:00 Pulse 70 01/25/24 06:00 Resp 18 01/25/24 06:00 BP 106/70 01/25/24 06:00 Pulse Ox 98 01/25/24 06:00 O2 Del Method Room Air 01/25/24 06:00 See admission H&P and DOD summary. Principal Diagnosis Schizoaffective Disorder, current depressive episode Psychiatric Data See daily stay summary. In short, patient was engaged with the social/therapeutic milieu of the unit, safety was maintained and the patient was cooperative with care. There were no medication changes as his lithium level was therapeutic at 1.0 and further adjustments to clozapine were not felt necessary given fairly rapid improvement in symptoms of paranoia and delusions with structured environment of the unit and concern for potential side effects at higher doses preventing him from engaging in therapeutically beneficial groups and interactions with peers. He also remained on Latuda 60mg daily with dinner. He understands importance of routine blood work for ANC monitoring with clozapine and metabolic/movement monitoring for Latuda and clozapine. Labs of fasting glucose, fasting lipid profile, and weight were preformed and within normal limits. Recommend repeat fasting glucose, HbA1c and fasting lipid profile at least annually. If symptoms arise recommend checking BP, EKG, prolactin level as clinically indicated or relevant. A family session was held and safety plan was completed prior to discharge. In the days leading up to discharge he consistently denied any SI. He participated in safety planning and in discussions about ways to seek support and recognizing warning signs and utilizing coping skills. Reviewed importance of seeking emergency care should SI intensify, worsen or should they feel unsafe in the future which they agree to do. On the day of discharge he stated his mood was "great" and remained future-oriented including making dinner, seeing his mom, and going on walks around [facility] campus and engaging in aftercare appointments for psychiatry, therapy and case management and attending [facility] groups three times per week. Day of Discharge Assessment Today the patient voices readiness for discharge. They note improvement in mood and anxiety. They deny thoughts of harm to self or others. Thoughts are organized and they are clinically improved from admission. There is no evidence of psychosis. They improved in the hospital with support. They agree to take medications as prescribed and keep follow-up appointments. At the time of the discharge they are deemed to be stable and appropriate for outpatient level of care. They are not deemed to be at imminent risk of harm to self or others. They are aware of emergency and crisis services. Knows to call 911 or go to nearest emergency care center if in a crisis which cannot be handled as an outpatient. Overall, I spent a total of 40 minutes on this case including meeting with the patient, reviewing the chart, nursing report, multidisciplinary team meeting, orders, and documentation. Transition of Care Transition Of Care Record: was reviewed with the patient Advance Directives Advance Directives Information Provided: Yes Advance Directives: No Mental Health Advance Directive: No Advance Directives on File: No Living Will: No Power of Track Welder: No Advance Directives Reason:: Declines as Mental Health Visit. Suicide Risk Level Suicide Risk Level Comments: Acute risk is low given improvement in mood and denial of SI, lack of access to lethal means, hopefulness and improvement in psychosis. Chronic risk is moderate to high given multiple non-modifiable risk factors: prior attempt, prior psychiatric hospitalizations, poor social support, mood disorder, schizophrenia, but also with protective factors including: sense of responsibility to family and social supports, outpatient care in place, positive coping skills, capacity to establish therapeutic alliance. Counseled on ways to reduce acute and chronic risk including engaging with outpatient providers, using safety plan if needed, utilizing supports, taking medication, and using coping skills. Modifiable risk factors of SI and depression were addressed during hospitalization through development of new coping skills, family meeting, reality-testing, and safety planning. Risk Factors Assessment Male: Yes : Yes Do You Have Access To A Gun?: No Mental Health Diagnoses: Yes Previous Attempt: Yes Previous Psychiatric Hospitalization: Yes Hopelessness: No Protective Factors Assessment Employed: No Stable Relationships: Yes Supportive Family: Yes Good Rapport with Provider: Yes Discharge Data Lab Results 01/17/24 01/17/24 01/19/24 16:13 19:21 07:23 WBC 11.32 H RBC 5.67 Hgb 15.2 Hct 46.4 MCV 81.8 MCH 26.8 MCHC 32.8 RDW Std Deviation 43.4 RDW Coeff of Belén 14.6 H Plt Count 338 MPV 10.3 Immature Gran % (Auto) 0.4 Neut % (Auto) 69.6 Lymph % (Auto) 20.5 [place] % (Auto) 7.6 Eos % (Auto) 1.3 Baso % (Auto) 0.6 Neut # (Auto) 7.87 H Lymph # (Auto) 2.32 [place] # (Auto) 0.86 H Eos # (Auto) 0.15 Baso # (Auto) 0.07 Immature Gran # (Auto) 0.05 Sodium 139 Potassium 4.0 Chloride 107 Carbon Dioxide 28 Anion Gap 4 BUN 11 Creatinine 1.12 Est Cr Clr Drug Dosing 122.1 Est GFR ( Amer) 103.1 Est GFR (Non-Af Amer) 88.9 BUN/Creatinine Ratio 9.8 L Glucose 98 107 H Estimat Average Glucose 100 Hemoglobin A1c 5.1 Calcium 9.7 Total Bilirubin 0.5 AST 29 ALT 28 Alkaline Phosphatase 46 Total Protein 7.0 Albumin 4.8 Globulin 2.2 L Albumin/Globulin Ratio 2.2 H Triglycerides 147 Cholesterol 118 LDL Cholesterol, Calc 49 VLDL Cholesterol, Calc 29 HDL Cholesterol 40 Cholesterol/HDL Ratio 3.0 TSH 1.786 Urine Color Yellow Urine Appearance Clear Urine pH 7.5 Ur Specific [place] 1.009 Urine Protein Negative Urine Glucose (UA) Negative Urine Ketones Negative Urine Blood Negative Urine Nitrite Negative Urine Bilirubin Negative Urine Urobilinogen Negative Ur Leukocyte Esterase Trace H Urine WBC (Auto) 0-5 Urine RBC (Auto) 0-2 U Hyaline Cast (Auto) 0-2 U Epithel Cells (Auto) 0-2 Urine Bacteria (Auto) None Seen Salicylates < 3.0 L Urine Opiates Screen Neg Ur Methadone, Qual Neg Acetaminophen < 3 L Urine Barbiturates Neg Ur Phencyclidine (PCP) Neg Clozapine 222 Norclozapine 115 U Amphetamin/Meth Scrn Neg MDMA (Ecstasy) Screen Neg U Benzodiazepines Scrn Neg Marlton 1.0 Ur Cocaine Metabolite Neg U Marijuana (THC) Screen Neg Ethyl Alcohol mg/dL < 10.0 SARS-CoV-2, RNA, NAAT NEGATIVE 01/24/24 07:45 WBC 10.37 RBC 5.72 Hgb 15.3 Hct 47.9 MCV 83.7 MCH 26.7 MCHC 31.9 L RDW Std Deviation 43.0 RDW Coeff of Belén 14.2 Plt Count 317 MPV 9.8 Immature Gran % (Auto) 0.9 Neut % (Auto) 55.6 Lymph % (Auto) 30.5 [place] % (Auto) 9.6 Eos % (Auto) 2.4 Baso % (Auto) 1.0 Neut # (Auto) 5.77 Lymph # (Auto) 3.16 [place] # (Auto) 1.00 H Eos # (Auto) 0.25 Baso # (Auto) 0.10 Immature Gran # (Auto) 0.09 Sodium Potassium Chloride Carbon Dioxide Anion Gap BUN Creatinine Est Cr Clr Drug Dosing Est GFR ( Amer) Est GFR (Non-Af Amer) BUN/Creatinine Ratio Glucose Estimat Average Glucose Hemoglobin A1c Calcium Total Bilirubin AST ALT Alkaline Phosphatase Total Protein Albumin Globulin Albumin/Globulin Ratio Triglycerides Cholesterol LDL Cholesterol, Calc VLDL Cholesterol, Calc HDL Cholesterol Cholesterol/HDL Ratio TSH Urine Color Urine Appearance Urine pH Ur Specific [place] Urine Protein Urine Glucose (UA) Urine Ketones Urine Blood Urine Nitrite Urine Bilirubin Urine Urobilinogen Ur Leukocyte Esterase Urine WBC (Auto) Urine RBC (Auto) U Hyaline Cast (Auto) U Epithel Cells (Auto) Urine Bacteria (Auto) Salicylates Urine Opiates Screen Ur Methadone, Qual Acetaminophen Urine Barbiturates Ur Phencyclidine (PCP) Clozapine Norclozapine U Amphetamin/Meth Scrn MDMA (Ecstasy) Screen U Benzodiazepines Scrn Marlton Ur Cocaine Metabolite U Marijuana (THC) Screen Ethyl Alcohol mg/dL SARS-CoV-2, RNA, NAAT Hospital Course (1) Suicidal thoughts: (2) Schizoaffective disorder, bipolar type: (3) Delusions: Plan 01/24/2024: Continue current medications and tx plan. needs support meeting. 01/23/2024: Continue current medications and tx plan. CBC with ANC tomorrow. 01/22/2024: Continue current medications and tx plan. 01/21/2024: Continue current medications and tx plan. 01/20/2024: Continue current medications and tx plan. 01/19/2024: Continue current medications and tx plan. Consider clozapine adjustment once level comes back. 01/18/2024: The patient was admitted to the [facility] (community mental health center inpatient mental health unit) on q15 min checks (behavioral with suicide precautions) for safety. The patient will participate in group, recreational, and milieu therapies and will be offered additional individual and family sessions as clinically appropriate. * Continue Marl[place], Clozapine and Latuda * AM labwork to include Li level, clozapine level and fasting lipid panel and glucose Mental Health & Subst Abuse Tx Psychiatrist Name of Psychiatrist: SILVIANO Richardson-Beatrice Rogers Psychiatrist's Date Of Appointment With Psychiatric Provider: 02/05/24 Time of Appointment with Psychiatrist: 3:15 Please arrive 15 minutes early (3:00pm) Psychiatric Appointment Comment: [address] [place], [place] Therapist Name of Therapist: Cheko Kahn Therapist's Date of Therapist Appointment: 01/30/2024 Time of Therapist Appointment: 3pm Therapy Appointment Comment: [address] [place], [place] Pet Sitting Name of Pet Sitting: ROMELIA Drake Post Discharge Appointments Primary Care Physician Name Of Family Doctor/PCP: Silviano Richardson- Brooke Dunn Primary Care Time of Appointment with PCP: please follow up as needed Provider Appointment Comment: [address] [place], [place] Partial or Psych Rehab Name of Partial or Psych Rehab: [facility]- Referral made- they will be contacting you Phone Number of Partial or Psych Rehab: [phone] Partial or Psych Rehab Appointment Comment: [id number] [place] [address] Discharge Plan Discharge Items Patient Disposition: Home - Self-Care Reason For Visit: UNSPECIFICED DEPRESSION Discharge Diagnosis: Schizoaffective Disorder, depressive episode Activity: Resume your previous activity Non-emergency contact: Primary Care Provider, Psychiatrist, Therapist and [place]ock Maker Call non-emergency contact if: you have any medication questions and your symptoms worsen Follow-up/Referrals: Brooke Dunn DO [Primary Care Provider] - Diet: Regular Addtl Attending Provider Instructions: SPECIAL CARE INSTRUCTIONS: 1. Follow through with your scheduled aftercare appointments. If unable to keep an appointment, please call to reschedule. 2. Take your medication only as prescribed. Medication should not be changed or stopped without the approval of your doctor. In the event of worsening symptoms or concerns about side effects, contact your doctor immediately. 3. Utilize new healthy coping skills, anger management skills, and stress management skills learned during your hospitalization. Journal feelings and process them with a support person. Identify stressors or situations that may result in relapse, deterioration or inappropriate behaviors and develop a plan to deal with those issues. 4. If your coping skills are ineffective and you are in crisis, contact your outpatient providers for direction. If unable to reach your providers, please call the [facility] CRISIS LINE AT , go to the [facility] walk-in center at [address], [address], [place], or go to the closest Emergency Room. 5. Avoid alcohol and un-prescribed drugs. 6. You have been provided with the Mental Health Advance Directives Pamphlet for your review. 7. Your condition is stable for discharge to outpatient level of care, but recovery is an ongoing process. Ifthoughts to harm yourself or others return, follow the safety plan developed during your stay. Planning for a safe return home includes securing weapons. Our treatment team recommends weaponsbe removed from the home until your outpatient provider reassesses your progress. In rare cases where the items themselvescannot be removed, guns and ammunitionshould be secured separatelyand keys stored by a reliable personoutside of the home. If you were admitted on an involuntary commitment, the police or other legal authorities may be involved in this process. AFTERCARE APPOINTMENTS: * Please call your insurance company prior to your scheduled appointment to confirm your aftercare providers are covered. Take your insurance information to your appointments. WHO TO CALL AND WHEN: Medical Emergencies: For questions or emergencies related to your hospital stay, please contact the Inpatient Behavioral Health Unit at [phone]. A manager merchandise is on-call 01/05 for the Behavioral Health Unit for emergencies At any time you feel your situation is an emergency, you may also call 911 immediately. National Crisis Line: 312 Pending Studies at Discharge: No Stand-Alone Forms: My [facility] Medications and DC Order Prescriptions: New lithium carbonate 300 mg Tablet 600 mg PO QAM 30 Days Qty: 60 0RF lurasidone 60 mg tablet 60 mg PO PM 30 Days Qty: 30 0RF Rx Instructions: must administer with food (at least 350 calories) lithium carbonate 600 mg capsule 1,200 mg PO HS 30 Days Qty: 60 0RF Continued clozapine [Clozaril] 50 mg tablet 50 mg PO HS Qty: 14 1RF Rx Instructions: [facility]#[id number] clozapine [Clozaril] 200 mg tablet 200 mg PO HS Qty: 14 1RF Rx Instructions: take with 50 bc=635 mg hs; [id number] Discontinued lithium carbonate 300 mg Tablet 600 mg PO QAM Qty: 84 1RF lurasidone 60 mg Tablet 60 mg PO 1800 Qty: 14 1RF lithium carbonate 300 mg capsule 1,200 mg PO HS Discharge Orders: Discharge Order (Routine); Ordered 01/25/24 Ordered By: Michela Bloom Admission Data Admit Date/Time: 01/17/24 21:46 Attending Provider: Michela Bloom Admit Provider: Michela Bloom Primary Care Provider: Brooke Dunn Other Interventions: Discharge Summary Assessment (RN) Last Done: 01/25/24 10:43 PSY Interdisciplinary Discharge Planning Last Done: 01/25/24 11:22 Coding Level of Care Code 23294 D/C day mgmt > 30 min Diagnoses Suicidal thoughts R45.851 Schizoaffective disorder, bipolar type F25.0 Delusions F22
== END 2024-01-25 12:05 | disposition home or self-care (01) | DRG 885 ==
LOC: ED 16:00 → 3S 21:46